=== PATIENT | female | born 1955 | race Hispanic/Latino ===

== ENCOUNTER 2018-05-25 00:41 | Observation (INO) | payer BC ==
--- OUTSIDE RECORDS SUMMARY | 2018-05-25 00:44 | XMS REPORT | Clinical Summary ---
:1955 Author Organization [facility] Address [address] [place] [address] Phone Care Team Providers Name Role Phone Unavailable Primary Care Provider Unavailable Allergies Active Allergy Reactions Severity Noted Date Comments Sulfamethoxazole-Trimethopr Nausea And Vomiting, High 09/19/2017 im Swelling Infliximab Hives, Itching High 09/19/2017 Liraglutide Other (See Comments) High 09/19/2017 Leg cramping Codeine Nausea And Vomiting 09/19/2017 Current Medications Prescription Sig. Disp. Refills Start End Status Date Date aspirin 81 MG EC Take 81 mg by Active tablet mouth daily. amLODIPine (NORVASC) Take 10 mg by Active 10 MG tablet mouth daily. calcitriol (ROCALTROL) Take 0.25 mcg by Active 0.25 MCG capsule mouth daily. loratadine (CLARITIN) Take 10 mg by Active 10 mg tablet mouth daily. DULoxetine (CYMBALTA) Take 60 mg by Active 60 MG capsule mouth daily. mometasone-formoterol Inhale 2 puffs by Active (DULERA) 200-5 mouth via inhaler mcg/actuation inhaler 2 (two) times daily. omega 1-fcw-pkq-fish Take 1,600 mg by Active oil (FISH OIL) mouth daily. 1,600-500-800 mg/5 mL Liqd multivitamins (FOLBEE) Take 1 tablet by Active 2.5-25-1 mg Tab tablet mouth daily. hydroxychloroquine Take 200 mg by Active (PLAQUENIL) 200 mg mouth 2 (two) tablet times daily. ipratropium (ATROVENT) 2 sprays by Nasal Active 0.06 % 0.06% nasal route 2 (two) spray times daily. leflunomide (ARAVA) 20 Take 20 mg by Active MG tablet mouth daily. ABATACEPT (ORENCIA Inject 1,000 mg Active SUBQ) subcutaneously every 30 (thirty) days. pravastatin Take 10 mg by Active (PRAVACHOL) 10 MG mouth daily. tablet cycloSPORINE Place 1 drop into Active (RESTASIS) 0.05 % both eyes every 12 ophthalmic emulsion (twelve) hours. ascorbic acid, vitamin Take 1,000 mg by Active C, (VITAMIN C) 1000 MG mouth daily. tablet cholecalciferol Take 1,000 Units Active (VITAMIN D3) 400 unit by mouth 2 (two) Tab tablet times daily. insulin lispro Inject 5 Units 10 mL 0 09/28/19 Active (HUMALOG) 100 unit/mL subcutaneously 3 18 injection (three) times daily before meals. insulin glargine Inject 20 Units 10 mL 0 09/28/19 Active (LANTUS) 100 unit/mL subcutaneously 18 injection nightly Use as directed . famotidine (PEPCID) 20 Take 1 tablet (20 90 tablet 3 09/28/19 Active MG tablet mg total) by mouth 18 019 daily. carvedilol (COREG) Take 3 tablets 540 3 09/28/19 Active 12.5 MG tablet (37.5 mg total) by tablet 18 019 mouth 2 (two) times daily. sodium bicarbonate 650 Take 2 tablets 540 3 09/28/192 Active MG tablet (1,300 mg total) tablet 18 019 by mouth 3 (three) times daily. pravastatin Take 1 tablet (40 90 tablet 3 09/28/19 Active (PRAVACHOL) 40 MG mg total) by mouth 18 019 tablet nightly. hydrALAZINE Take 1 tablet (100 270 3 09/28/19 Active (APRESOLINE) 100 MG mg total) by mouth tablet 18 019 tablet every 8 (eight) hours. furosemide (LASIX) 40 Take 1 tablet (40 180 3 09/28/19 Active MG tablet mg total) by mouth tablet 18 019 2 (two) times daily. carvedilol (COREG) 25 Take 25 mg by Discontinued MG tablet mouth 2 (two) 018 times daily with breakfast and dinner. cloNIDine HCl Take 0.1 mg by Discontinued (CATAPRES) 0.1 MG mouth 3 (three) 018 tablet times daily. insulin glargine Inject 48 Units Discontinued (LANTUS) 100 unit/mL subcutaneously 018 injection nightly Use as directed . losartan (COZAAR) 50 Take 50 mg by Discontinued MG tablet mouth 3 (three) 018 times daily. insulin lispro Inject 14 Units Discontinued (HUMALOG) 100 unit/mL subcutaneously 3 018 injection (three) times daily before meals. spironolactone Take 25 mg by Discontinued (ALDACTONE) 25 MG mouth daily. 018 tablet ezetimibe (ZETIA) 10 Take 10 mg by Discontinued mg tablet mouth daily. 018 pravastatin Take 1 tablet (40 90 tablet 3 09/28/19 Discontinued (PRAVACHOL) 40 MG mg total) by mouth 18 018 tablet nightly. sodium bicarbonate 650 Take 2 tablets 540 3 09/28/19 Discontinued MG tablet (1,300 mg total) tablet 18 018 by mouth 3 (three) times daily. hydrALAZINE Take 1 tablet (100 270 3 09/28/19 Discontinued (APRESOLINE) 100 MG mg total) by mouth tablet 18 018 tablet every 8 (eight) hours. furosemide (LASIX) 40 Take 1 tablet (40 180 3 09/28/19 Discontinued MG tablet mg total) by mouth tablet 18 018 2 (two) times daily. colchicine (COLCRYS) Take 0.5 tablets 2.5 0 09/29/19 Discontinued 0.6 mg tablet (0.3 mg total) by tablet 18 018 mouth daily for 5 days. carvedilol (COREG) Take 3 tablets 540 3 09/28/19 Discontinued 12.5 MG tablet (37.5 mg total) by tablet 18 018 mouth 2 (two) times daily. colchicine (COLCRYS) Take 0.5 tablets 2.5 0 09/29/19 0.6 mg tablet (0.3 mg total) by tablet 18 018 mouth daily for 5 days. Active Problems Problem Noted Date Acute pericarditis 09/21/2017 LBBB (left bundle branch block) 09/20/2017 Pericardial effusion 09/20/2017 Recurrent right pleural effusion 09/20/2017 Uncontrolled type 2 diabetes mellitus with complication, with long-term 2016 current use of insulin ([facility]) CKD (chronic kidney disease) stage 4, GFR 15-29 ml/min ([facility]) 09/20/2017 Hypoxemia 09/20/2017 Pneumonia of both lungs due to infectious organism 09/19/2017 Encounters Date Type Specialty Care Team Description 09/20/2017 Orders Only General Internal Medicine 09/19/2017 - [facility] General Internal Frankie Raman Pneumonia of right 09/28/2017 Encounter Medicine MD Zbigniew lower lobe due to Eduardo Enrique infectious organism MD Taty ([facility]);Hypoxemia;LBBB Jan Harris MD (left bundle branch block);Chest pain, unspecified type;Pericardial effusion;Acute diastolic heart failure ([facility]);Acute renal failure superimposed on stage 3 chronic kidney disease, unspecified acute renal failure type ([facility]);Uncontrolled type 2 diabetes mellitus with complication, with long-term current use of insulin ([facility]);Pleural effusion after 05/24/2017 Family History Medical History Relation Name Comments Diabetes Brother Drug abuse Brother Asthma Daughter Cancer Father Diabetes Father Diabetes Maternal Aunt Diabetes Maternal Grandmother Diabetes Mother Hearing loss Mother Heart disease Mother Relation Name Status Comments Brother Daughter Father Maternal Aunt Maternal Grandmother Mother Social History Tobacco Use Types Packs/Day Years Used Date Never Smoker Smokeless Tobacco: Never Used Alcohol Use Drinks/Week oz/Week Comments Yes 1 Glasses of wine 0.6 sip of wine once a week Sex Assigned at Date Recorded Not on file Last Filed Vital Signs Vital Sign Reading Time Taken Blood Pressure 118/58 09/28/2017 3:44 PM MAIL READER Pulse 88 09/28/2017 3:44 PM MAIL READER Temperature 36.2 C (97.2 F) 09/28/2017 3:44 PM MAIL READER Respiratory Rate 18 09/28/2017 3:44 PM MAIL READER Oxygen Saturation 94% 09/28/2017 3:44 PM MAIL READER Inhaled Oxygen Concentration - - Weight 123 kg (271 lb 4 oz) 09/27/2017 6:00 AM MAIL READER Height 168 cm (5' 6.14") 09/19/2017 8:44 PM MAIL READER Body Mass Index 43.59 09/27/2017 6:00 AM MAIL READER Plan of Treatment Not on file Results EKG-SCANNED (09/29/2017 1:53 PM)RHYTHM STRIP - SCAN (09/29/2017 1:53 PM) ECHOCARDIOGRAM REPORT - SCAN (09/28/2017 1:50 PM)Only the most recent of3 resultswithin the time period is included.POC-Glucose meter (09/28/2017 11:52 AM )Only the most recent of37 resultswithin the time period is included. Component Value Ref Range POC-Glucose Meter 181 (H)Comment: TESTED AT [address] 70 - 110 mg/[place] [address] Specimen Performing Laboratory Blood [address] [address] Karius (Attention: Tameka Luna, [facility]) (09/28/2017 6:09 AM) Component Value Ref Range Scan Result Specimen Performing Laboratory Blood - Vein [facility] [address] [place] [address] Magnesium (09/28/2017 6:09 AM)Only the most recent of9 resultswithin the time period is included. Component Value Ref Range Magnesium 1.7 1.6 - 2.6 mg/dL Specimen Performing Laboratory Blood [address] [address] Basic Metabolic Panel (09/28/2017 6:09 AM)Only the most recent of9 resultswithin the time period is included. Component Value Ref Range Sodium 135 (L) 136 - 145 meq/L Potassium 4.3 3.5 - 5.1 meq/L Chloride 106 98 - 107 meq/L CO2 19 (L) 22 - 29 meq/L BUN 49 (H) 7 - 21 mg/dL Creatinine 3.42 (H) 0.57 - 1.25 mg/dL Glucose 109 (H) 70 - 105 mg/dL Calcium 9.4 8.4 - 10.2 mg/dL EGFR 14Comment: ESTIMATED GFR IS NOT ACCURATE mL/min/1.73 sq m CREATININE CLEARANCE IN PREDICTING GLOMERULAR FILTRATION RATE. ESTIMATED GFR IS NOT APPLICABLE FOR DIALYSIS PATIENTS. Specimen Performing Laboratory Blood [address] [address] Body fluid culture + gram stain (09/27/2017 7:36 PM) Component Value Ref Range Result No growth Gram Stain Result No White blood cells seen Gram Stain Result No organisms seen Specimen Performing Laboratory Body Fluid - Pleural, Right [address] [address] Body fluid cell count with differential (09/27/2017 7:36 PM) Component Value Ref Range Appearance Bloody (A) Clear Color Pita (A) Colorless, Straw RBCs [address] (H) <=1 /cu mm Adjusted WBC Count 3032 (H) <=5 /cu mm Lining Cells 121 (H) <=1 /cu mm % Segs 32 % % Lymphs 6 % % Monos 60 % % Eos 2 % % Baso 0 % Container Body Fluid EDTA Tube Specimen Performing Laboratory Body Fluid - Pleural, [address] [address] Protein, body fluid (09/27/2017 7:36 PM) Component Value Ref Range Protein, Fluid 3.6 Light's criteria identifies effusions if one or more are present: Pleural to serum protein ratio of more than 0.5; Pleural to Serum LDH of more than 0.6; Pleural LDH of more than two third of upper serum reference limit g/dL Specimen Performing Laboratory Body Fluid - Pleural, [address] [address] Narrative Absence of reference range indicates that normals have not been defined. Assay performance has not been validated for this type of specimen. Lactate dehydrogenase (LDH), body fluid (09/27/2017 7:36 PM) Component Value Ref Range LDH, Fluid 234 Light's criteria identifies effusions if one or more are present: Pleural to serum protein ratio of more than 0.5; Pleural to serum LDH ratio of more than 0.6; Pleural LDH more than two third of upper serum reference limit U/L Specimen Performing Laboratory Body Fluid - Pleural, [address] [address] Narrative Absence of reference range indicates that normals have not been defined. Assay performance has not been validated for this type of specimen. Limited 2D Echocardiogram (09/27/2017 6:59 PM) Component Value Ref Range Ejection Fraction Specimen Performing Laboratory [facility] Narrative Transthoracic Echocardiography Report (TTE) Demographics Patient Name Ann ZIEGLER of Study 09/27/2017 [id number] GenderFemale Visit Number [id number] Race Unknown [id number] Number [id number] Number Date of Birth1955 Referring Physician Anastacio Rutledge MD Age62 year(s) Manager Of Pharmacy David Deal [facility] AnalystLjen Tarango,Interpreting Zbigniew Fortune MD [facility] Physician Procedure Type of Study TTE procedure:LIMITED 2D ECHOCARDIOGRAM (ELADIO) Indications:Evaluate for thrombus . Clinical History COPD Hyperlipidemia Hypertension LBBB Height: 66 inches Weight: 122.92 kg (271 lbs) BSA: 2.28 m^2 BMI: 43.74 kg/m^2 HR: 96 bpm BP: 155/72 mmHg Previous Study Compared to the previous study 09/26/2016 the left ventricular size appears decreased. Signature Findings Technical Quality: Technically adequate exam. Left Ventricle Limited 2D exam and Doppler exam to address study indication. The left ventricle is chamber size (by vol index) is normal (female - LVED vol - 29-61ml/m2). Global LV systolic function normal . LVEF by Feldman's method of disk assessment is normal (55-60%) . Left AtriumLA size is normal (16-34 ml/m2) . Right VentricleRV chamber size is normal . Right Atrium RA cavity size is mildly enlarged . Aortic Valve Mild AoV cusp thickening. Mitral Valve Mild MV leaflet thickening. Mild mitral annular calcification. Tricuspid ValveTV structure is normal. Pulmonic Valve Normal PV structure appears normal by available views. AortaAortic root size (SInus of Valsalva diameter) is normal . PericardiumA small to moderate pericardial effusion is present . The pericardial effusion is circumferential . The pericardial effusion measures 0.89 posterior to the left ventricle in the parasternal short axis view at the mid level and 1.6cm around RA. Pericardial tamponade physiology is not evident . IVC/SVC/PA/PV/PleuralThe inferior vena cava is adequately visualized. The inferior vena cava size is normal . No echodensity is seen in the inferior vena cava. Chambers/Structures Left Ventricle LVIDd: 5.57 cm LVIDs: 3.35 cm LV Septum Diastolic: 1.23 cm LV PW Diastolic: 1.41 cmLV FS: 39.9 % LV PW Systolic: 1.33 cm LVEDV Feldman's:123.23 ml LVEDVI: 54 ml/m^ 2 LVESV Feldman's:51.51 mlLVESVI: 23 ml/ m^2 LVEF Feldman's: 58.2 % LVOT Diameter: 2.28 cm Aorta Ao Root S of Page.: 1.88 cm Doppler/Quantitative Measurements LVOT LVOT Diameter: 2.28 cm LVOT Area: 4.08 cm^2 Procedure Note Interface, External Ris In - 09/28/2017 1:03 PM MAIL READER Transthoracic Echocardiography Report (TTE) Demographics Patient Name MIKE ZIEGLER Date of Study 09/27/2017 Gender Female Visit Number [id number] Race Unknown Room Number 926 Number Date of 1955 Referring Physician Anastacio Rutledge MD Age 62 year(s) Manager Of Pharmacy David Deal [facility] Fertilizer Supervisor Auer Tarango, Interpreting Zbigniew Fortune MD [facility] Physician Procedure Type of Study TTE procedure:LIMITED 2D ECHOCARDIOGRAM (ELADIO) Indications:Evaluate for thrombus . Clinical History COPD Hyperlipidemia Hypertension LBBB Height: 66 inches Weight: 122.92 kg (271 lbs) BSA: 2.28 m^2 BMI: 43.74 kg/m^2 HR: 96 bpm BP: 155/72 mmHg Previous Study Compared to the previous study 09/26/2016 the left ventricular size appears decreased. Signature Findings Technical Quality: Technically adequate exam. Left Ventricle Limited 2D exam and Doppler exam to address study indication. The left ventricle is chamber size (by vol index) is normal (female - LVED vol - 29-61ml/m2). Global LV systolic function normal . LVEF by Feldman's method of disk assessment is normal (55-60%) . Left Atrium LA size is normal (16-34 ml/m2) . Right Ventricle RV chamber size is normal . Right Atrium RA cavity size is mildly enlarged . Aortic Valve Mild AoV cusp thickening. Mitral Valve Mild MV leaflet thickening. Mild mitral annular calcification. Tricuspid Valve TV structure is normal. Pulmonic Valve Normal PV structure appears normal by available views. Aorta Aortic root size (SInus of Valsalva diameter) is normal . Pericardium A small to moderate pericardial effusion is present . The pericardial effusion is circumferential . The pericardial effusion measures 0.89 posterior to the left ventricle in the parasternal short axis view at the mid level and 1.6cm around RA. Pericardial tamponade physiology is not evident . IVC/SVC/PA/PV/Pleural The inferior vena cava is adequately visualized. The inferior vena cava size is normal . No echodensity is seen in the inferior vena cava. Chambers/Structures Left Ventricle LVIDd: 5.57 cm LVIDs: 3.35 cm LV Septum Diastolic: 1.23 cm LV PW Diastolic: 1.41 cm LV FS: 39.9 % LV PW Systolic: 1.33 cm LVEDV Feldman's:123.23 ml LVEDVI: 54 ml/m^2 LVESV Feldman's:51.51 ml LVESVI: 23 ml/m^2 LVEF Feldman's: 58.2 % LVOT Diameter: 2.28 cm Aorta Ao Root S of Page.: 1.88 cm Doppler/Quantitative Measurements LVOT LVOT Diameter: 2.28 cm LVOT Area: 4.08 cm^2 US thoracentesis (09/27/2017 4:15 PM) Specimen Performing Laboratory [facility] Narrative FINAL REPORT Ultrasound guided right thoracentesis Clinical History:Pleural effusion Modality:Ultrasound Local Anesthesia:10 cc1% lidocaine with bicarbonate Technique:Informed consent is obtained.The risks of pain, bleeding, infection, lung collapse/pneumothorax, injury to adjacent structures, and adverse medication reactions are discussed with the patient.After informed consent is obtained, the patient's right hemithorax is scanned from the back, with the patient sitting upright.After the largest fluid pocket area is marked, the skin is prepped and draped in the usual sterile manner.After the area is anesthetized, a 4 Uzbek catheter is advanced into the pleural space. Approximately 1100 cc of serosanguineous fluid is drained, without immediate complications.Fluid is sent for analysis.A purple top tube and a red top tube, each filled with the sampled fluid, are saved in the laboratory department in case future fluid analysis is desired.Post procedure chest x-ray is pending. Patient disposition:Patient is discharged from the ultrasound department after the thoracentesis in good condition. Impression: Successful and uncomplicated ultrasound guided right thoracentesis is performed. Signed: Moises Peters MD Report Verified Date/Time:09/27/2017 17:19:37 Reading Location: [address] Ultrasound Reading Room Procedure Note Interface, External Ris In - 09/27/2017 5:21 PM MAIL READER FINAL REPORT Ultrasound guided right thoracentesis Clinical History: Pleural effusion Modality: Ultrasound Local Anesthesia: 10 cc1% lidocaine with bicarbonate Technique: Informed consent is obtained. The risks of pain, bleeding, infection, lung collapse/pneumothorax, injury to adjacent structures, and adverse medication reactions are discussed with the patient. After informed consent is obtained, the patient's right hemithorax is scanned from the back, with the patient sitting upright. After the largest fluid pocket area is marked, the skin is prepped and draped in the usual sterile manner. After the area is anesthetized, a 4 Uzbek catheter is advanced into the pleural space. Approximately 1100 cc of serosanguineous fluid is drained, without immediate complications. Fluid is sent for analysis. A purple top tube and a red top tube, each filled with the sampled fluid, are saved in the laboratory department in case future fluid analysis is desired. Post procedure chest x-ray is pending. Patient disposition: Patient is discharged from the ultrasound department after the thoracentesis in good condition. Impression: Successful and uncomplicated ultrasound guided right thoracentesis is performed. Signed: Moises Peters MD Report Verified Date/Time: 09/27/2017 17:19:37 Reading Location: [facility] B1 [id number] Ultrasound Reading Room chest 1 view portable / bedside (09/27/2017 4:10 PM)Only the most recent of5 resultswithin the time period is included. Specimen Performing Laboratory [facility] Narrative FINAL REPORT AP chest HISTORY: Thoracentesis COMPARISON: 09/27/2017 IMPRESSION: Intact skeleton. Cardiac silhouette mildly enlarged. Mild interstitial prominence, similar to previous. Right effusion appears decreased. No pneumothorax. Signed: Tari Lea MD Report Verified Date/Time:09/27/2017 16:21:56 Reading Location: [facility] Mammo Reading Room Procedure Note Interface, External Ris In - 09/27/2017 4:24 PM MAIL READER FINAL REPORT AP chest HISTORY: Thoracentesis COMPARISON: 09/27/2017 IMPRESSION: Intact skeleton. Cardiac silhouette mildly enlarged. Mild interstitial prominence, similar to previous. Right effusion appears decreased. No pneumothorax. Signed: Tari Lea MD Report Verified Date/Time: 09/27/2017 16:21:56 Reading Location: [facility] Mammo Reading Room Vitamin B12 and Folate (09/27/2017 4:54 AM) Component Value Ref Range Vitamin B12 >2000 (H) 213 - 816 pg/mL Folate 13.3 >=7.0 ng/mL Specimen Performing Laboratory Blood [facility] [address] [address] 2D Echo W/Doppler(CW/PW/Color) (09/26/2017 11:38 AM) Component Value Ref Range Ejection Fraction Specimen Performing Laboratory [facility] Narrative Transthoracic Echocardiography Report (TTE) Demographics Patient NameACOSTA, MIKE Date of Study2017 Female Visit [id number] Unknown Room Number 926 Number Date of 1955Referring Physicianfrankie Rutledge MD Age 62 year(s)SonographerOscar Bridget [facility] Fertilizer Supervisor Aure Tarango, Interpreting Trevor Tristan MD RDCSPhysician Procedure Type of Study TTE procedure:2DECHO W DOPPLER(CW/PW/COLOR) (ELADIO) Indications:Suspected Pericardial conditions. Clinical History ASTHMA, COPD, OBESITY, LBBB, CAD, A.FIB. HTN, CHF, STROKE Contrast Medium: Definity. Amount - 2 ml Height: 66 inches Weight: 120.66 kg (266.01 lbs) BSA: 2.26 m^2 BMI: 42.93 kg/m^2 HR: 96 bpm BP: 146/65 mmHg Summary A bcpwx-vk-dcrylyxl pericardial effusion is present . The pericardial effusion is circumferential . The pericardial effusion measures 2.8 cm by the right atrium in the subcostal view. NO signs of tamponacde LV endocardium is adequately visualized with IV ultrasound enhancing agent. The left ventricle is chamber size (by vol index) is mildly enlarged (female - LVED 62-70ml/m2). Myey-ya-adfckycx concentric LV hypertrophy. All of the LV segments contract normally . Global LV systolic function normal . LVEF by Feldman's method of disk assessment is normal (55-60%) . The LVEF was measured using Feldman's single plane method (apical 2 chamber) . Grade 1 diastolic dysfunction (impaired relaxation and low-normal LA pressure). LA, RA and RV are normal No significant valvular abnormality Unable to estimate peak systolic PA pressure; inadequate TR velocity signal. The estimated RA pressure by IVC dynamics 0-5mmHg . IVC echo density is noted, consistent with possible thrombus . Previous Study In comparison with the prior exam on 09/20/2017 there are no significant changes. Signature Findings Technical Quality: Technically adequate exam. Rhythm/BPRegular sinus rhythm during the exam. Left Ventricle LV endocardium is adequately visualized with IV ultrasound enhancing agent. The left ventricle is chamber size (by vol index) is mildly enlarged (female - LVED 62-70ml/m2). Utdt-fq-rckqhtiw concentric LV hypertrophy. All of the LV segments contract normally . Global LV systolic function normal . LVEF by Feldman's method of disk assessment is normal (55-60%) . The LVEF was measured using Feldman's single plane method (apical 2 chamber) . Grade 1 diastolic dysfunction (impaired relaxation and low-normal LA pressure). Left AtriumLA is adequately visualized. LA size is normal (16-34 ml/m2 ) . Right VentricleRV chamber size is normal . Global RV systolic function is hyperdynamic . Right Atrium RA size is normal. Aortic Valve Mild AoV cusp thickening. No evidence of aortic regurgitation. Mitral Valve Mild MV leaflet thickening. Trace mitral regurgitation. Tricuspid ValveTV structure is normal. A trace of tricuspid regurgitation. Unable to estimate peak systolic PA pressure; inadequate TR velocity signal. Pulmonic Valve Normal PV structure and function by limited views and Doppler. AortaAortic root size (SInus of Valsalva diameter) is normal . PericardiumA apion-ud-qahixsym pericardial effusion is present . The pericardial effusion is circumferential . The pericardial effusion measures 2.8 cm by the right atrium in the subcostal view. IVC/SVC/PA/PV/PleuralThe inferior vena cava is adequately visualized. The inferior vena cava size is normal . The estimated RA pressure by IVC dynamics 0-5mmHg . IVC echo density is noted, consistent with possible thrombus . Chambers/Structures Left Atrium LA Volume: 50.98 ml LA Area: 18.51 cm^ 2 LA Vol. Index: 23 ml/m^2 Left Ventricle LVIDd: 4.82 cm LVIDs: 3.07 cm LV Septum Diastolic: 1.35 cm LV PW Diastolic: 1.4 cm LV FS: 36.3 % LVEDV Feldman's:143.81 ml LVESV Feldman's:62.75 mlLVEDVI: 64 ml/ m^2 LVEF Feldman's: 56.4 %LVESVI: 28 ml/m^2 LVOT Diameter: 2.01 cm Aorta Ao Root S of Page.: 2.66 cm Doppler/Quantitative Measurements Mitral Valve MV Peak E-Wave: 0.88 m/sMV Peak A-Wave: 1.27 m/s E/ A Ratio: 0.69 Peak Gradient: 3.1 mmHg MV Farhan. Peak: Tissue Doppler E' Lateral Velocity: 0.08 m/s A' Lateral Velocity: 0.15 m/s E/ E': 11.07 Aortic Valve Peak Velocity: 1.97 m/sMean Velocity: 1.35 m/s Peak Gradient: 15.48 mmHgMean Gradient: 8.31 mmHg AV Area (continuity): 2.02 cm^2 AV VTI: 39.31 cm AV DVI: 0.64 LVOT Peak Velocity: 1.34 m/s Peak Gradient: 7.17 mmHg Mean Velocity: 0.85 m/s Mean Gradient: 3.43 mmHg LVOT Diameter: 2.01 cmLVOT VTI: 25 cm LVOT Area: 3.17 cm^2LVOT SV:79.29 ml LVOT CO: 7.61 l/min LVOT CI: 3.37 l/min/m^2 Procedure Note Interface, External Ris In - 09/26/2017 4:07 PM MAIL READER Transthoracic Echocardiography Report (TTE) Demographics Patient Name MIKE ZIEGLER Date of Study 09/26/2017 Gender Female Visit Number [id number] Race Unknown Room Number 926 Number Date of 1955 Referring Physician frankie Rutledge MD Age 62 year(s) 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 Clinical History ASTHMA, COPD, OBESITY, LBBB, CAD, A.FIB. HTN, CHF, STROKE Contrast Medium: Definity. Amount - 2 ml Height: 66 inches Weight: 120.66 kg (266.01 lbs) BSA: 2.26 m^2 BMI: 42.93 kg/m^2 HR: 96 bpm BP: 146/65 mmHg Summary A eangd-jg-unhiffyj pericardial effusion is present . The pericardial effusion is circumferential . The pericardial effusion measures 2.8 cm by the right atrium in the subcostal view. NO signs of tamponacde LV endocardium is adequately visualized with IV ultrasound enhancing agent. The left ventricle is chamber size (by vol index) is mildly enlarged (female - LVED 62-70ml/m2). Xpxz-eq-xjpkklyx concentric LV hypertrophy. All of the LV segments contract normally . Global LV systolic function normal . LVEF by Feldman's method of disk assessment is normal (55-60%) . The LVEF was measured using Feldman's single plane method (apical 2 chamber) . Grade 1 diastolic dysfunction (impaired relaxation and low-normal LA pressure). LA, RA and RV are normal No significant valvular abnormality Unable to estimate peak systolic PA pressure; inadequate TR velocity signal. The estimated RA pressure by IVC dynamics 0-5mmHg . IVC echo density is noted, consistent with possible thrombus . Previous Study In comparison with the prior exam on 09/20/2017 there are no significant changes. Signature Findings Technical Quality: Technically adequate exam. Rhythm/BP Regular sinus rhythm during the exam. Left Ventricle LV endocardium is adequately visualized with IV ultrasound enhancing agent. The left ventricle is chamber size (by vol index) is mildly enlarged (female - LVED 62-70ml/m2). Xwuk-bb-mjsomtbx concentric LV hypertrophy. All of the LV segments contract normally . Global LV systolic function normal . LVEF by Feldman's method of disk assessment is normal (55-60%) . The LVEF was measured using Feldman's single plane method (apical 2 chamber) . Grade 1 diastolic dysfunction (impaired relaxation and low-normal LA pressure). Left Atrium LA is adequately visualized. LA size is normal (16-34 ml/m2) . Right Ventricle RV chamber size is normal . Global RV systolic function is hyperdynamic . Right Atrium RA size is normal. Aortic Valve Mild AoV cusp thickening. No evidence of aortic regurgitation. Mitral Valve Mild MV leaflet thickening. Trace mitral regurgitation. Tricuspid Valve TV structure is normal. A trace of tricuspid regurgitation. Unable to estimate peak systolic PA pressure; inadequate TR velocity signal. Pulmonic Valve Normal PV structure and function by limited views and Doppler. Aorta Aortic root size (SInus of Valsalva diameter) is normal . Pericardium A swkgb-vy-kwbdintz pericardial effusion is present . The pericardial effusion is circumferential . The pericardial effusion measures 2.8 cm by the right atrium in the subcostal view. IVC/SVC/PA/PV/Pleural The inferior vena cava is adequately visualized. The inferior vena cava size is normal . The estimated RA pressure by IVC dynamics 0-5mmHg . IVC echo density is noted, consistent with possible thrombus . Chambers/Structures Left Atrium LA Volume: 50.98 ml LA Area: 18.51 cm^2 LA Vol. Index: 23 ml/m^2 Left Ventricle LVIDd: 4.82 cm LVIDs: 3.07 cm LV Septum Diastolic: 1.35 cm LV PW Diastolic: 1.4 cm LV FS: 36.3 % LVEDV Feldman's:143.81 ml LVESV Feldman's:62.75 ml LVEDVI: 64 ml/m^2 LVEF Feldman's: 56.4 % LVESVI: 28 ml/m^2 LVOT Diameter: 2.01 cm Aorta Ao Root S of Page.: 2.66 cm Doppler/Quantitative Measurements Mitral Valve MV Peak E-Wave: 0.88 m/s MV Peak A-Wave: 1.27 m/s E/A Ratio: 0.69 Peak Gradient: 3.1 mmHg MV Farhan. Peak: Tissue Doppler E' Lateral Velocity: 0.08 m/s A' Lateral Velocity: 0.15 m/s E/E': 11.07 Aortic Valve Peak Velocity: 1.97 m/s Mean Velocity: 1.35 m/s Peak Gradient: 15.48 mmHg Mean Gradient: 8.31 mmHg AV Area (continuity): 2.02 cm^2 AV VTI: 39.31 cm AV DVI: 0.64 LVOT Peak Velocity: 1.34 m/s Peak Gradient: 7.17 mmHg Mean Velocity: 0.85 m/s Mean Gradient: 3.43 mmHg LVOT Diameter: 2.01 cm LVOT VTI: 25 cm LVOT Area: 3.17 cm^2 LVOT SV:79.29 ml LVOT CO: 7.61 l/min LVOT CI: 3.37 l/min/m^2 PT/aPTT (09/26/2017 11:10 AM) Component Value Ref Range Protime 14.5 11.7 - 14.7 seconds INR 1.1 <=5.9 PTT 39.2 (H) 22.5 - 36.0 seconds Specimen Performing Laboratory Blood - Arm, [address] [address] Narrative RECOMMENDED COUMADIN/WARFARIN INR THERAPY RANGES STANDARD DOSE: 2.0 - 3.0 Includes: PROPHYLAXIS for venous thrombosis, systemic embolization; TREATMENT for venous thrombosis and/or pulmonary embolus. HIGH RISK: Target INR is 2.5-3.5 for patients with mechanical heart valves. Platelet count (09/26/2017 11:10 AM) Component Value Ref Range Platelets 501 (H) 150 - 450 K/CU MM Specimen Performing Laboratory Blood - Arm, [address] [address] Protein, total (09/26/2017 11:10 AM) Component Value Ref Range Protein, Total 6.1 6.0 - 8.3 gm/dL Specimen Performing Laboratory Blood - Arm, [address] [address] Lactate dehydrogenase (LDH) (09/26/2017 11:10 AM) Component Value Ref Range LDH 309 (H) 125 - 220 U/L Specimen Performing Laboratory Blood - Arm, [address] [address] XR chest 2 views (09/25/2017 6:37 PM) Specimen Performing Laboratory [facility] Narrative FINAL REPORT Examination: Two view Chest X-ray. CLINICAL HISTORY: Cough COMPARISON: 09/21/2017 The cardiac silhouette is prominent in size. The patient has been extubated. There is a moderate right pleural effusion. Central pulmonary vascular congestion is present. Vague infrahilar opacity in the right lung may reflect a combination of atelectasis, edema and effusion but pneumonitis should be excluded clinically. There is no pneumothorax or acute bony abnormality. Signed: Gasper Johnson MD Report Verified Date/Time:09/25/2017 19:38:01 Reading Location: [address] Reading Room Procedure Note Interface, External Ris In - 09/25/2017 7:40 PM MAIL READER FINAL REPORT Examination: Two view Chest X-ray. CLINICAL HISTORY: Cough COMPARISON: 09/21/2017 The cardiac silhouette is prominent in size. The patient has been extubated. There is a moderate right pleural effusion. Central pulmonary vascular congestion is present. Vague infrahilar opacity in the right lung may reflect a combination of atelectasis, edema and effusion but pneumonitis should be excluded clinically. There is no pneumothorax or acute bony abnormality. Signed: Gasper Johnson MD Report Verified Date/Time: 09/25/2017 19:38:01 Reading Location: [address] Reading Room Protein, random urine (09/24/2017 4:18 PM) Component Value Ref Range Protein, Urine 154 (H) 0 - 14 mg/dL Specimen Performing Laboratory Urine [address] [address] Creatinine, random urine (09/24/2017 4:18 PM)Only the most recent of2 resultswithin the time period is included. Component Value Ref Range Creatinine, Ur 88.8 mg/dL Specimen Performing Laboratory Urine [address] [address] Narrative Reference Range: No Normals NM myocardial perfusion PET (rest and stress) (09/24/2017 2:57 PM) Specimen Performing Laboratory [facility] Narrative FINAL REPORT PROCEDURE:Rest/Stress MYOCARDIAL PERFUSION PET with regadenoson\\XA9\\ CPT CODE:10635 INDICATION:Chest pain, hypokinesis on echo HISTORY:Cardiac risk factors: Diabetes mellitus, hypertension, obesity, lipid abnormality, COPD, asthma. Other cardiovascular history: No reported CAD.. Recent cardiac symptoms: Chest pain. Current cardiovascular-related medications: Aspirin, Coreg, amlodipine, Lasix, Zetia, plaquinil PROTOCOL:Limited low-dose CT imaging was performed for attenuation correction. 37.7 mCi of Rb-82 chloride was injected iv at rest, and gated PET (positron emission tomography) images were obtained. Subsequently, 37.4 mCi of Rb-82 chloride was injected iv at expected peak pharmacologic effect, and gated PET images were obtained. PRELIMINARY STRESS TEST DATA FROM NONINVASIVE CARDIOLOGY: Pharmacologic stress was by 10-second iv infusion of 0.4 mg of regadenoson.Radiotracer was injected 30 seconds after start of stress. Heart rate was 110 beats/min at rest and 118 beats/min (74% of MPHR) at tracer injection. BP was 150/72 mmHg at rest and 171/74 mmHg at tracer injection. Stress was stopped for predetermined endpoint. The patient experienced dyspnea; treatment was not required . Preliminary ECG evaluation revealed sinus rhythm at rest and no ischemic changes with stress. (Final ECG interpretation and other stress and monitoring data are reported separately by Cardiology.) IMAGING FINDINGS:Study quality is adequate. Images obtained after stress injection show neurologic distribution of radiotracer. Resting images show decreased anteroseptal intensity. LV volume appears normal . RV volume appearsnormal . Gated images obtained immediately after stress show normal LV wall motion. Gated images obtained at rest show normal LV wall motion. LVEF at rest is 59%. LVEF at stress is 61%. The CT scan shows a large right pleural effusion and in attenuation artifact in the right upper abdomen with the right kidney would be expected. IMPRESSION: 1. Suspicious study.2. Appropriate pharmacologic stress.3. Suspicious myocardial perfusion. The stress images are normal while there is decreased anteroseptal intensity in the resting images. 4. Normal resting LV function. Normal stress LV function.5. Extracardiac tracer distribution is normal.6. No previous [facility] study for comparison. NONINVASIVE RISK STRATIFICATION: The above findings are considered low risk based on the following criteria: 1)Normal or small myocardial perfusion defect at rest or with stress (JACC. 2012;59(9):857-80.) Signed: Selvin Braswell MD Report Verified Date/Time:09/24/2017 16:36:36 Procedure Note Interface, External Ris In - 09/24/2017 4:38 PM MAIL READER FINAL REPORT PROCEDURE: Rest/Stress MYOCARDIAL PERFUSION PET with regadenoson\\XA9\\ CPT CODE: 00335 INDICATION: Chest pain, hypokinesis on echo HISTORY: Cardiac risk factors: Diabetes mellitus, hypertension, obesity, lipid abnormality, COPD, asthma. Other cardiovascular history: No reported CAD.. Recent cardiac symptoms: Chest pain. Current cardiovascular-related medications: Aspirin, Coreg, amlodipine, Lasix, Zetia, plaquinil PROTOCOL: Limited low-dose CT imaging was performed for attenuation correction. 37.7 mCi of Rb-82 chloride was injected iv at rest, and gated PET (positron emission tomography) images were obtained. Subsequently, 37.4 mCi of Rb-82 chloride was injected iv at expected peak pharmacologic effect, and gated PET images were obtained. PRELIMINARY STRESS TEST DATA FROM NONINVASIVE CARDIOLOGY: Pharmacologic stress was by 10-second iv infusion of 0.4 mg of regadenoson. Radiotracer was injected 30 seconds after start of stress. Heart rate was 110 beats/min at rest and 118 beats/min (74% of MPHR) at tracer injection. BP was 150/72 mmHg at rest and 171/74 mmHg at tracer injection. Stress was stopped for predetermined endpoint. The patient experienced dyspnea; treatment was not required . Preliminary ECG evaluation revealed sinus rhythm at rest and no ischemic changes with stress. (Final ECG interpretation and other stress and monitoring data are reported separately by Cardiology.) IMAGING FINDINGS: Study quality is adequate. Images obtained after stress injection show neurologic distribution of radiotracer. Resting images show decreased anteroseptal intensity. LV volume appears normal . RV volume appears normal . Gated images obtained immediately after stress show normal LV wall motion. Gated images obtained at rest show normal LV wall motion. LVEF at rest is 59%. LVEF at stress is 61%. The CT scan shows a large right pleural effusion and in attenuation artifact in the right upper abdomen with the right kidney would be expected. IMPRESSION: 1. Suspicious study. 2. Appropriate pharmacologic stress. 3. Suspicious myocardial perfusion. The stress images are normal while there is decreased anteroseptal intensity in the resting images. 4. Normal resting LV function. Normal stress LV function. 5. Extracardiac tracer distribution is normal. 6. No previous [facility] study for comparison. NONINVASIVE RISK STRATIFICATION: The above findings are considered low risk based on the following criteria: 1)Normal or small myocardial perfusion defect at rest or with stress (JAC. 2012;59(9):857-81.) Signed: Selvin Braswell MD Report Verified Date/Time: 09/24/2017 16:36:36 Treadmill tolerance(Non-Nuclear Treadmill) (09/24/2017 2:52 PM) Specimen Performing Laboratory [facility] Narrative Protocol Name Regadenoson Time In Exercise Phase 00:01:00 Max. Systolic BP 171 mmHg Max Diastolic BP 74 mmHg Max Heart Rate 118 BPM Max Predicted Heart Rate 159 BPM Reason For Termination Predetermined end point Reason for Test Chest Pain Hypokenesis by ECHO Target HR Formula (220 - Age)*100% Arrhythmias none Resting ECG Sinus tachycardia Non-Specific IVCD Low QRS voltage ST Changes No Significant Changes Overall Impression Indeterminate due to pharmacological stress Indeterminate due to baseline ECG abnormality Chest Pain none HR Response To Exercise BP Response To Exercise Functional Capacity Average-based on age-adjusted MET level achieved ASA COREG AMLODIPINE LASIX Zetia PLAQUENIL Confirmed by fellow Skye Alvarado ([id number]) on 09/27/2017 11:19:37 AM Confirmed by MD CABRERA JORGE ([id number]) on 09/28/2017 4:43:16 PM Procedure Note Interface, External Ris In - 09/28/2017 4:43 PM MAIL READER Protocol Name Regadenoson Time In Exercise Phase 00:01:00 Max. Systolic BP 171 mmHg Max Diastolic BP 74 mmHg Max Heart Rate 118 BPM Max Predicted Heart Rate 159 BPM Reason For Termination Predetermined end point Reason for Test Chest Pain Hypokenesis by ECHO Target HR Formula (220 - Age)*100% Arrhythmias none Resting ECG Sinus tachycardia Non-Specific IVCD Low QRS voltage ST Changes No Significant Changes Overall Impression Indeterminate due to pharmacological stress Indeterminate due to baseline ECG abnormality Chest Pain none HR Response To Exercise BP Response To Exercise Functional Capacity Average-based on age-adjusted MET level achieved ASA COREG AMLODIPINE LASIX Zetia PLAQUENIL Confirmed by fellow Skye Alvarado [id number]) on 09/27/2017 11:19:37 AM Confirmed by MD CABRERA JORGE ([id number]) on 09/28/2017 4:43:16 PM Vancomycin level, random (09/24/2017 4:21 AM)Only the most recent of3 resultswithin the time period is included. Component Value Ref Range Vancomycin Rm 16.6 ug/mL Specimen Performing Laboratory Blood [facility] [address] [address] Narrative Reference Range: No Normals US renal complete (09/23/2017 10:02 PM) Specimen Performing Laboratory [facility] Narrative FINAL REPORT U/S, RENAL, COMPLETE CLINICAL INDICATION:"Elevated creatinine" COMPARISON: None TECHNIQUE:The kidneys and urinary bladder were evaluated using real time ferreira scale and color Doppler sonography. FINDINGS: Right kidney: Thin cortex. No hydronephrosis or mass. Left kidney: Thin cortex. No hydronephrosis. Scattered simple renal cysts. Renal Vasculature: Doppler interrogation reveals preserved vascular flow in the main renal arteries and veins bilaterally. The visualized portions of the abdominal aorta and IVC are unremarkable. Urinary bladder: Unremarkable. IMPRESSION: No hydronephrosis. Thinned renal cortices. Signed: Yahir Benson MD Report Verified Date/Time:09/23/2017 22:13:52 Reading Location: [address] Ortho Consult Reading Room Procedure Note Interface, External Ris In - 09/23/2017 10:16 PM MAIL READER FINAL REPORT U/S, RENAL, COMPLETE CLINICAL INDICATION: "Elevated creatinine" COMPARISON: None TECHNIQUE: The kidneys and urinary bladder were evaluated using real time ferreira scale and color Doppler sonography. FINDINGS: Right kidney: Thin cortex. No hydronephrosis or mass. Left kidney: Thin cortex. No hydronephrosis. Scattered simple renal cysts. Renal Vasculature: Doppler interrogation reveals preserved vascular flow in the main renal arteries and veins bilaterally. The visualized portions of the abdominal aorta and IVC are unremarkable. Urinary bladder: Unremarkable. IMPRESSION: No hydronephrosis. Thinned renal cortices. Signed: Yahir Benson MD Report Verified Date/Time: 09/23/2017 22:13:52 Reading Location: [facility] B1 [id number] Ortho Consult Reading Room Urinalysis w/Microscopic + Reflex to Culture (09/23/2017 12:14 PM) Component Value Ref Range Color, UA Yellow Clarity, UA Hazy Specific [place], UA 1.010 1.001 - 1.035 pH, UA 5.5 5.0 - 8.0 Protein, UA 100 mg/dL (A) Negative Glucose, UA 30 mg/dL (A) Negative Ketones, UA Negative Negative Bilirubin, UA Negative Negative Blood, UA Negative Negative Nitrite, UA Negative Negative Leukocytes, UA Negative Negative Urobilinogen, UA 0.2 0.2 - 1.0 mg/dL RBC, UA 0 /HPF WBC, UA 1 /HPF Bacteria, UA Occasional Mucus Rare Squam Epithel, UA 11 /HPF Yeast Rare Specimen Source Specimen Performing Laboratory Urine - Urine, Clean Catch [address] [address] Sodium, random urine (09/23/2017 12:14 PM) Component Value Ref Range Sodium Urine 31 meq/L Specimen Performing Laboratory Urine - Urine, Clean Catch [address] [address] Narrative Reference Range: No Normals CBC with platelet count + automated diff (09/23/2017 5:37 AM)Only the most recent of4 resultswithin the time period is included. Component Value Ref Range WBC 12.7 (H) 3.5 - 10.5 K/L RBC 2.61 (L) 3.93 - 5.22 M/L Hemoglobin 7.9 (L) 11.2 - 15.7 GM/DL Hematocrit 24.7 (L) 34.1 - 44.9 % MCV 94.6 79.4 - 94.8 fL MCH 30.3 25.6 - 32.2 pg MCHC 32.0 (L) 32.2 - 35.5 GM/DL RDW 14.2 11.7 - 14.4 % Platelets 466 (H) 150 - 450 K/CU MM MPV 10.6 9.4 - 12.3 fL nRBC 0 0 - 0 /100 WBC % Neutros 64 % % Lymphs 17 % % Monos 11 % % Eos 7 % % Baso 0 % # Neutros 8.16 (H) 1.56 - 6.13 K/L # Lymphs 2.14 1.18 - 3.74 K/L # Monos 1.35 (H) 0.24 - 0.36 K/L # Eos 0.83 (H) 0.04 - 0.36 K/L # Baso 0.04 0.01 - 0.08 K/L Immature Granulocytes-Relative 2 (H) 0 - 1 % Specimen [place] [address] CBC with platelet count + automated diff (09/23/2017 5:37 AM)Only the most recent of4 resultswithin the time period is included. Specimen Performing Laboratory Blood Narrative The following orders were created for panel order CBC with platelet count + automated diff. Procedure Abnormality Status --------- ------ CBC with platelet count ...[[id number]]AbnormalFinal result Please view results for these tests on the individual orders. CMV PCR, quantitative (09/22/2017 4:44 AM) Component Value Ref Range CMV DNA Viral Load Negative or below the linear range of the assay (<375 copies/mL) Specimen Performing Laboratory Blood - Arm, [place] [address] Narrative Cytomegalovirus (CMV) infection can cause significant disease in immunosuppressed patients. However, it is common for CMV to manifest as a limited infection which is of no clinical significance in immunosuppressed patients or in healthy individuals. Viral load measurements are helpful to identify clinical CMV infection and to guide the pre-emptive management of antiviral therapy.For treatment of CMV infection due to reactivation in transplant recipients, a threshold between 4,000 and 5, 000 copies/mL is suggested.For treatment of primary CMV infection, a lower threshold can be used. CMV infection may also be monitored using weekly serial measurements. Serial measurements of CMV DNA viral load can be evaluated by identifying a 10-fold change, as well as assessing the CMV DNA viral load and the clinical context for each patient. The plasma CMV DNA viral load was detected using quantitative polymerase chain reaction and fluorescent monitoring of a specific hybridized probe. Genetic variation and other factors can affect the accuracy of nucleic acid testing. Therefore, the results should be interpreted in light of clinical data. A negative result may not exclude the presence of CMV disease. This test was developed and its performance characteristics determined by the [facility] Pathology Department, Section of Molecular Pathology. It has not been cleared or approved by the U.S. Food and Drug Administration (FDA), since FDA approval is not required for clinical use of the test. Validation was done as required by The Clinical Laboratory Improvement Amendments of 1988. Mycoplasma pneumoniae antibody, IgM (09/22/2017 4:44 AM) Component Value Ref Range M. pneumoniae Ab IgM, EIA 139 U/mL Comment: REFERENCE RANGE: <770 U/mL Interpretive criteria: <770 U/mL Negative 770-950 U/mL Low positive >950 U/mL Positive A positive IgM antibody result is consistent with recent infection. However, a negative result does not necessarily rule out recent infection as some individuals may not mount another IgM response, if previously infected. Specimen Performing Laboratory Blood - Arm, Right [employer] [facility] [address] [address] Narrative Performing Lab *[facility] [address] [place] [phone] Matthew Wolff MD Mycoplasma pneumoniae antibody, IgG (09/22/2017 4:44 AM) Component Value Ref Range Mycoplasma Igg < or=0.90 Comment: REFERENCE RANGE: <=0.90 Interpretive criteria: <=0.90 Negative 0.91-1.09 Equivocal >=1.10 Positive A positive IgG antibody result indicates that the patient has antibody to Mycoplasma. It does not differentiate between an active or past infection. The clinical diagnosis must be interpreted in conjunction with the clinical signs and symptoms of the patient. Specimen Performing Laboratory Blood - Arm, Right [facility] [address] [address] Narrative Performing Lab *[facility] [address] [place] [phone] Matthew Wolff MD Bronchial culture + gram stain (09/21/2017 12:52 PM) Component Value Ref Range Result No growth Gram Stain Result <1+ WBCs Gram Stain Result No organisms seen Specimen Performing Laboratory BAL - Lung, Right Middle Lobe [facility] [address] [place] [address] SPIN/CONCENTRATION CHARGE (09/21/2017 12:49 PM) Component Value Ref Range Concentration charged Done Specimen Performing Laboratory Body Fluid - BAL [address] [address] AFB culture + smear (09/21/2017 12:49 PM) Component Value Ref Range Result No acid-fast bacilli isolated in 42 days AFB Smear No acid fast bacilli seen Specimen Performing Laboratory Body Fluid - BAL [address] [address] Fungus culture + smear (09/21/2017 12:49 PM) Component Value Ref Range Result No fungus isolated in 28 days Fungus Smear No fungi seen Specimen Performing Laboratory BAL - Lung, Right Middle Lobe [address] [address] Blood gas, arterial (09/21/2017 11:02 AM) Component Value Ref Range pH, Arterial 7.43 7.35 - 7.45 pCO2, Arterial 32 (L) 35 - 45 mmHg pO2, Arterial 226 (H) 80 - 90 mmHg O2 Sat, Arterial 99.5 (H) 96.0 - 97.0 % HCO3, Arterial 21 21 - 29 mmol/L Base Excess, Arterial -3.3 (L) -2.0 - 3.0 mmol/L Patient Temperature 36.9 C FIO2 60.0 % Specimen Performing Laboratory Blood, Arterial - Arm, Right [address] [address] Legionella antigen, urine (09/20/2017 3:30 PM) Component Value Ref Range Legionella Urine Antigen Negative - see commentComment: Negative for L. pneumophila serogroup 1 antigen, suggesting no recent or current infection with this serogroup. Legionellosis cannot be ruled out since other serogroups and species may cause disease. Specimen Performing Laboratory Urine - Urine, Sterile Collection [address] [address] 2D Echo W/O Doppler(No Doppler) (09/20/2017 1:08 PM) Component Value Ref Range Ejection Fraction Specimen Performing Laboratory [facility] ECHO [facility]ART[facility] MKCKESSON CPACS Narrative Transthoracic Echocardiography Report (TTE) Demographics Patient NameACOSTA, MIKE Date of Study2015 Female Visit [id number] Unknown Room Number 7215 Number Date of 1955Referring Physicianfrankie raman Age 62 year(s)SonographerRahel Marrero Fertilizer Supervisor Aure Tarango, Interpreting Aleisha De Paz MD RDCSPhysician Procedure Type of Study TTE procedure:ECHO2D MODE W/O DOPPLER, DEFINITY CONTRAST (ELADIO) Indications:Shortness of breath and Pericardial effusion. Clinical History HGB 8.2 HCT 25.3 % LBBB, Pericardial Effusion, DM Contrast Medium: Definity. Amount - 2 ml Height: 66 inches Weight: 120.66 kg (266 lbs) BSA: 2.26 m^2 BMI: 42.93 kg/m^2 HR: 90 bpm BP: 128/72 mmHg Summary LV endocardium is adequately visualized with IV ultrasound enhancing agent. The left ventricle is chamber size (by vol index) is mildly enlarged (female - LVED 62-70ml/m2). Septal motion is consistent with LBBB, otherwise all of the LV segments contract normally . Global LV systolic function normal . A [id number] pericardial effusion is present . The pericardial effusion is circumferential. Pericardial tamponade physiology is not evident . The estimated RA pressure by IVC dynamics 0-5mmHg . Previous Study No prior studies available for comparison. Signature Findings Technical Quality: Technically adequate exam. Left Ventricle LV endocardium is adequately visualized with IV ultrasound enhancing agent. The left ventricle is chamber size (by vol index) is mildly enlarged (female - LVED 62-70ml/m2). Septal motion is consistent with LBBB, otherwise all of the LV segments contract normally . Global LV systolic function normal . Left AtriumLA is adequately visualized. LA size is normal (16-34 ml/m2 ) . Right VentricleThe right ventricular chamber size and systolic function are within normal limits. Right Atrium The RA is well visualized. RA cavity size is normal . Aortic Valve Mild AoV cusp thickening. AoV cusp mobility is normal . Mitral Valve Mild MV leaflet thickening. No evidence of mitral regurgitation. Tricuspid ValveNormal TV structure and function by available views and Doppler. Unable to estimate peak systolic PA pressure; inadequate TR velocity signal. Pulmonic Valve Normal PV structure and function by limited views and Doppler. AortaAortic root size (SInus of Valsalva diameter) is normal . PericardiumA utyrz-af-swsltgjk pericardial effusion is present . The pericardial effusion is circumferential. Pericardial tamponade physiology is not evident . IVC/SVC/PA/PV/PleuralThe inferior vena cava is adequately visualized. The inferior vena cava size is normal . The estimated RA pressure by IVC dynamics 0-5mmHg . Chambers/Structures Left Atrium LA Volume: 49.1 ml LA Area: 19.3 cm^2 LA Vol. Index: 22 ml/m^2 Left Ventricle LVIDd: 3.92 cm LV Septum Diastolic: 1.6 cm LV PW Diastolic: 1.54 cm LVEDV Feldman's:162.83 ml LVESV Feldman's:63.71 ml LVEF Feldman's: 60.9 % LVEDVI: 72 ml/m ^2 LVESVI: 28 ml/m^2 LVOT Diameter: 2.18 cm Aorta Ao Root S of Page.: 2.94 cm Doppler/Quantitative Measurements Mitral Valve MV Peak E-Wave: 0.76 m/sMV Peak A-Wave: 1.27 m/s E/ A Ratio: 0.6 Peak Gradient: 2.31 mmHg MV Farhan. 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 Clinical History HGB 8.2 HCT 25.3 % LBBB, Pericardial Effusion, DM Contrast Medium: Definity. Amount - 2 ml Height: 66 inches Weight: 120.66 kg (266 lbs) BSA: 2.26 m^2 BMI: 42.93 kg/m^2 HR: 90 bpm BP: 128/72 mmHg Summary LV endocardium is adequately visualized with IV ultrasound enhancing agent. The left ventricle is chamber size (by vol index) is mildly enlarged (female - LVED 62-70ml/m2). Septal motion is consistent with LBBB, otherwise all of the LV segments contract normally . Global LV systolic function normal . A vllaz-[id number]-[id number] pericardial effusion is present . The pericardial effusion is circumferential. Pericardial tamponade physiology is not evident . The estimated RA pressure by IVC dynamics 0-5mmHg . Previous Study No prior studies available for comparison. Signature Findings Technical Quality: Technically adequate exam. Left Ventricle LV endocardium is adequately visualized with IV ultrasound enhancing agent. The left ventricle is chamber size (by vol index) is mildly enlarged (female - LVED 62-70ml/m2). Septal motion is consistent with LBBB, otherwise all of the LV segments contract normally . Global LV systolic function normal . Left Atrium LA is adequately visualized. LA size is normal (16-34 ml/m2) . Right Ventricle The right ventricular chamber size and systolic function are within normal limits. Right Atrium The RA is well visualized. RA cavity size is normal . Aortic Valve Mild AoV cusp thickening. AoV cusp mobility is normal . Mitral Valve Mild MV leaflet thickening. No evidence of mitral regurgitation. Tricuspid Valve Normal TV structure and function by available views and Doppler. Unable to estimate peak systolic PA pressure; inadequate TR velocity signal. Pulmonic Valve Normal PV structure and function by limited views and Doppler. Aorta Aortic root size (SInus of Valsalva diameter) is normal . Pericardium A nsbwq-[id number]-[id number] pericardial effusion is present . The pericardial effusion is circumferential. Pericardial tamponade physiology is not evident . IVC/SVC/PA/PV/Pleural The inferior vena cava is adequately visualized. The inferior vena cava size is normal . The estimated RA pressure by IVC dynamics 0-5mmHg . Chambers/Structures Left Atrium LA Volume: 49.1 ml LA Area: 19.3 cm^2 LA Vol. Index: 22 ml/m^2 Left Ventricle LVIDd: 3.92 cm LV Septum Diastolic: 1.6 cm LV PW Diastolic: 1.54 cm LVEDV Feldman's:162.83 ml LVESV Feldman's:63.71 ml LVEF Feldman's: 60.9 % LVEDVI: 72 ml/m^2 LVESVI: 28 ml/m^2 LVOT Diameter: 2.18 cm Aorta Ao Root S of Page.: 2.94 cm Doppler/Quantitative Measurements Mitral Valve MV Peak E-Wave: 0.76 m/s MV Peak A-Wave: 1.27 m/s E/A Ratio: 0.6 Peak Gradient: 2.31 mmHg MV Farhan. Peak: Tissue Doppler E' Lateral Velocity: 0.08 m/s A' Lateral Velocity: 0.15 m/s E/E': 9.15 Aortic Valve Peak Velocity: 2.07 m/s Mean Velocity: 1.45 m/s Peak Gradient: 17.22 mmHg Mean Gradient: 9.58 mmHg AV Area (continuity): 2.3 cm^2 AV VTI: 41.46 cm AV DVI: 0.62 LVOT Peak Velocity: 1.35 m/s Peak Gradient: 7.24 mmHg Mean Velocity: 0.87 m/s Mean Gradient: 3.64 mmHg LVOT Diameter: 2.18 cm LVOT VTI: 25.58 cm LVOT Area: 3.73 cm^2 LVOT SV:95.43 ml LVOT CO: 8.59 l/min LVOT CI: 3.8 l/min/m^2 Procalcitonin (09/20/2017 10:04 AM) Component Value Ref Range Procalcitonin 2.35 (H) <0.05 ng/mL Specimen Performing Laboratory Blood [address] [address] Narrative SEPSIS RISK (ng/mL) Low:0.05-0.50 Intermediate: 0.51-2.00 High: >=2.01 Lactic acid, venous, whole blood (09/20/2017 8:04 AM) Component Value Ref Range Lactate, Venous 0.5 0.5 - 2.2 mmol/L Specimen Performing Laboratory Blood [address] [address] Narrative Effective 01/27/2016: Units/Reference Range Change New: 0.5-2.2 mmol/LPrevious: 5-20 mg/dL B-type Natriuretic Factor (BNP) (09/20/2017 8:04 AM) Component Value Ref Range BNP 22 0 - 100 pg/mL Specimen Performing Laboratory Blood [address] [address] Hemoglobin A1c (09/20/2017 8:04 AM) Component Value Ref Range Hemoglobin A1C 6.8 (H) 4.3 - 6.1 % Specimen Performing Laboratory Blood [address] [address] Strep pneumoniae antigen (09/20/2017 6:09 AM) Component Value Ref Range Strep pneumoniae Antigen Presumptive negative for Presumptive negative for pneumococcal pneumonia - see pneumococcal pneumonia - see comment comment, Presumptive negative for pneumococcal meningitis - see comment Specimen Performing Laboratory Urine - Urine, Unspecified Source [address] [address] Narrative Presumptive negative for pneumococcal pneumonia, suggesting no current or recent pneumococcal infection. Infection due to S. pneumoniae cannot be ruled out since the antigen present in the sample may be below the detection limit of the test. Manual Differential (09/20/2017 3:01 AM) Component Value Ref Range % Neutros (manual) 54 % % Lymphs (manual) 13 % % Monos (manual) 11 % % Eos (manual) 6 % % Metamyelo (manual) 3 (H) 0 - 0 % % Myelo (manual) 2 (H) 0 - 0 % % Bands (manual) 11 (H) 0 - 10 % # Neutros (manual) 6.70 1.80 - 8.00 K/L # Lymphs (manual) 1.61 1.48 - 4.50 K/L # Monos (manual) 1.36 (H) 0.00 - 1.30 K/L # Eos (manual) 0.74 (H) 0.00 - 0.50 K/L # Metamyelo (manual) 0.37 (H) 0.00 - 0.00 K/L # Bands (manual) 1.4 (H) 0.0 - 0.8 K/L # Myelo (manual) 0.25 (H) 0.00 - 0.00 K/L Total Counted 100 Bands plus Segmented Neutrophils 8.06 WBC Morphology Normal Platelet Morphology Normal Anisocytosis 2+ moderate Poikilocytes 2+ moderate Specimen Performing Laboratory Blood [address] [address] Respiratory Panel SLHS (09/20/2017 3:01 AM) Component Value Ref Range Human Metapneumovirus Not detected Not detected, Inconclusive Rhinovirus Not detected Not detected, Inconclusive Influenza A Not detected Not detected, Inconclusive Influenza A subtype H1 Not detected Not detected, Inconclusive Influenza A Subtype H3 Not detected Not detected, Inconclusive Influenza A Subtype H1-2009 Not detected Not detected, Inconclusive Influenza B Not detected Not detected, Inconclusive Respiratory Syncytial Virus Not detected Not detected, Inconclusive Parainfluenza Virus 1 Not detected Not detected, Inconclusive Parainfluenza Virus 2 Not detected Not detected, Inconclusive Parainfluenza virus 3 Not detected Not detected, Inconclusive Parainfluenza Virus 4 Not detected Not detected, Inconclusive Adenovirus Not detected Not detected, Inconclusive Coronavirus 229E Not detected Not detected, Inconclusive Coronavirus HKU1 Not detected Not detected, Inconclusive Coronavirus NL63 Not detected Not detected, Inconclusive Coronavirus OC43 Not detected Not detected, Inconclusive Bordetella Pertussis Not detected Not detected, Inconclusive Chlamydophila Pneumoniae Not detected Not detected, Inconclusive Mycoplasma Pneumoniae Not detected Not detected, Inconclusive Specimen Performing Laboratory Nasopharyngeal - Nasopharyngeal Swab [address] [address] Iron, TIBC, % sat. (without ferritin) (09/20/2017 3:01 AM) Component Value Ref Range Iron 27 (L) 40 - 160 ug/dL TIBC 186 (L) 250 - 450 ug/dL Iron % Saturation 15 (L) 20 - 55 % Specimen Performing Laboratory Blood [address] [address] Troponin I (09/20/2017 3:01 AM) Component Value Ref Range Troponin I <0.01 0.00 - 0.03 ng/mL Specimen Performing Laboratory Blood [address] [address] Narrative Troponin I (TnI) levels must be interpreted in the context of the presenting symptoms and the clinical findings. Elevated TnI levels indicate myocardial damage, but are not specific for ischemic heart disease. Elevated TnI levels are seen in patients with other cardiac conditions (including myocarditis and congestive heart failure), and slight TnI elevations occur in patients with other conditions, including sepsis, renal failure, acidosis, acute neurological disease, and persistent tachyarrhythmia. Phosphorus (09/20/2017 3:01 AM) Component Value Ref Range Phosphorus 4.2 2.3 - 4.7 mg/dL Specimen Performing Laboratory Blood [address] [address] Ferritin (09/20/2017 3:01 AM) Component Value Ref Range Ferritin 535 (H) 5 - 275 ng/mL Specimen Performing Laboratory Blood [address] [address] Creatine Kinase (CK), Total and MB (09/20/2017 3:01 AM) Component Value Ref Range Total CK 76 29 - 200 U/L CK-MB 1.9 0.0 - 6.6 ng/mL MB Relative Index 2.5 % Specimen Performing Laboratory Blood [address] [address] Narrative CK-MB Reference Range: <6.7Normal 6.7-10.0Borderline >10.0 Abnormal ECG 12 lead (09/20/2017 2:43 AM) Specimen Performing Laboratory GE MUSE Narrative Ventricular Rate 79 BPM Atrial Rate 79 BPM P-R Interval 192 ms QRS Duration 152 ms Q-T Interval 456 ms QTC Calculation(Bazett) 522 ms P [place] 59 degrees R [place] -15 degrees T [place] 87 degrees Normal sinus rhythm Left bundle branch block Prolonged QT Abnormal ECG No previous ECGs available Confirmed by MD TRISTAN YOCHAI ([id number]) on 09/20/2017 6:40:55 AM Procedure Note Interface, External Ris In - 09/20/2017 6:41 AM 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 Component Value Ref Range Result No growth in 5 days Specimen Performing Laboratory Blood - Arm, Left [address] [address] after 05/24/2017
--- OUTSIDE RECORDS SUMMARY | 2018-05-25 00:45 | XMS REPORT ---
:1955 [facility] Address [address] [place] [address] Dr. Chavira. [address] [place] [address] Care Team Providers Name Role Phone DR LYSSA COTTON Unavailable Unavailable MCKINLEY GODOY Unavailable Unavailable Problems This patient has no known problems. Allergies, Adverse Reactions, Alerts This patient has no known allergies or adverse reactions. Medications This patient has no known medications. Encounters Start End Encounter Admission Attending Care Care Encounter Date/Time Date/Time Type Type Clinicians Facility Department ID 2017-12-20 2017-12-20 Outpatient C LYSSA COTTON [facility] [id number] 05:45:00 10:51:00 Results Test Description Test Time Test Comments Text Results Atomic Results Result Comments GLUCOMETER GLUCOSE- LAB USE ONLY 2017-12-20 09:57:00 Test Item Value Reference Range Comments GLUCOMETER (test code=GMG) 163 mg/dL 70-100 Meter ID: [id number]: [id number] ARIC ROBERSON GLUCOMETER GLUCOSE- LAB USE [id number] 06:56:00 Test Item Value Reference Range Comments GLUCOMETER (test code=GMG) 148 mg/dL 70-100 CLEANED METERMeter ID: [id number]: [id number] [employer] CULTURE + [id number] 18:43:00 Test Item Value Reference Range Comments CULTURE (BEAKER) (test No acid-fast bacilli isolated rfqe=0567) in 42 days AFB SMEAR (BEAKER) (test No acid fast bacilli seen xcpc=453) FUNGUS CULTURE + [id number] 13:42:00 Test Item Value Reference Range Comments CULTURE (BEAKER) (test No fungus isolated in 28 days rglb=6588) FUNGUS SMEAR (BEAKER) (test No fungi seen eptm=1686) BODY FLUID CULTURE + GRAM [id number] 06:03:00 Test Item Value Reference Range Comments CULTURE (BEAKER) (test qyad=5798) No growth GRAM STAIN RESULT (BEAKER) (test No White blood cells seen tfyx=3796) GRAM STAIN RESULT (BEAKER) (test No organisms seen iebc=18697) POCT-GLUCOSE [id number] 12:20:00 Test Item Value Reference Range Comments POC-GLUCOSE METER (BEAKER) 181 mg/dL 70-110 TESTED AT [address] (test tqek=6407) [place] [address] POCT-GLUCOSE [id number] 08:56:00 Test Item Value Reference Range Comments POC-GLUCOSE METER (BEAKER) 119 mg/dL 70-110 TESTED AT [address] (test bpqi=6282) [place] [id number] BASIC METABOLIC [id number] 07:37:00 Test Item Value Reference Range Comments SODIUM (BEAKER) (test 135 meq/L 136-145 qeak=247) POTASSIUM (BEAKER) (test 4.3 meq/L 3.5-5.1 vehz=955) CHLORIDE (BEAKER) (test 106 meq/L 98-107 ucwe=952) CO2 (BEAKER) (test 19 meq/L 22-29 oljp=439) BLOOD UREA NITROGEN 49 mg/dL 7-21 (BEAKER) (test gjfw=299) CREATININE (BEAKER) (test 3.42 mg/dL 0.57-1.25 nxhh=151) GLUCOSE RANDOM (BEAKER) 109 mg/dL 70-105 (test jcly=712) CALCIUM (BEAKER) (test 9.4 mg/dL 8.4-10.2 geun=669) EGFR (BEAKER) (test 14 mL/min/1.73 sq m ESTIMATED GFR IS NOT oiyw=0268) ACCURATE CREATININE CLEARANCE IN PREDICTING GLOMERULAR FILTRATION RATE. ESTIMATED GFR IS NOT APPLICABLE FOR DIALYSIS PATIENTS. [id number] 07:36:00 Test Item Value Reference Range Comments MAGNESIUM (BEAKER) (test cwrn=882) 1.7 mg/dL 1.6-2.6 BODY FLUID CELL COUNT WITH [id number] 22:37:00 Test Item Value Reference Range Comments APPEARANCE FLUID (BEAKER) (test jgoh=740) Bloody Clear COLOR FLUID (BEAKER) (test xinc=279) Pita Colorless, Straw RBC FLUID (BEAKER) (test upra=921) [address]8613 /cu mm <=1 ADJUSTED WBC FLUID (BEAKER) (test kxlt=0894) 3032 /cu mm <=5 LINING CELLS (BEAKER) (test qtek=9137) 121 /cu mm <=1 NEUTROPHILS FLUID (BEAKER) (test frph=4861) 32 % LYMPHS FLUID (BEAKER) (test gzey=674) 6 % MONO/MACROPHAGE FLUID (BEAKER) (test fqme=134) 60 % EOSINOPHILS FLUID (BEAKER) (test jopj=076) 2 % BASO FLUID (BEAKER) (test yboi=367) 0 % CONTAINER BODY FLUID (BEAKER) (test vxou=8179) EDTA Tube POCT-GLUCOSE [id number] 21:26:00 Test Item Value Reference Range Comments POC-GLUCOSE METER (BEAKER) 165 mg/dL 70-110 TESTED AT [address] (test cbjg=9468) [facility] [address] LACTATE DEHYDROGENASE (LDH), BODY [id number] 20:35:00 Test Item Value Reference Range Comments LACTATE DEHYDROGENASE FLUID (BEAKER) 234 U/L Light's criteria identifies (test jldk=480) effusions if one or more are pre Absence of reference range indicates that normals have not been defined.Assay performance has not been validated for this type of specimen.PROTEIN, BODY [id number] 20:35:00 Test Item Value Reference Range Comments PROTEIN FLUID (BEAKER) (test 3.6 g/dL Light's criteria identifies jqyc=415) effusions if one or more are pre Absence of reference range indicates that normals have not been defined.Assay performance has not been validated for this type of specimen.POCT-GLUCOSE [id number] 17:21:00 Test Item Value Reference Range Comments POC-GLUCOSE METER (BEAKER) 134 mg/dL 70-110 TESTED AT [address] (test kgme=9239) [facility] [address] U/S, [id number] 17:19:00Laterality?->RightReason for exam:-> diagnsotic and therapeuticFINAL REPORT Ultrasound guided right thoracentesis Clinical History: Pleural effusion Modality: Ultrasound Local Anesthesia: 10 cc1% lidocaine with bicarbonate Technique: Informed consent is obtained. The risks of pain, bleeding, infection, lung collapse/pneumothorax, injury to adjacent structures, and adverse medication reactions are discussed with the patient. After informed consent is obtained, the patient's right hemithorax is scanned from the back, with the patientsitting upright. After the largest fluid pocket area is marked, the skin is prepped and draped in the usual sterile manner. After the area is anesthetized, a 4 Azeri catheter is advanced into the pleural space. Approximately 1100 cc of serosanguineous fluid is drained, without immediate complications. Fluid is sent for analysis. A purple top tube and a red top tube, each filled with the sampledfluid, are saved in the laboratory department in case future fluid analysis is desired. Post procedure chest x-ray is pending. Patient disposition: Patient is discharged from the ultrasound department after the thoracentesis in good condition. Impression: Successful and uncomplicated ultrasound guided right thoracentesis is performed. Signed: Moises Peters Verified Date/Time: 09/27/2017 17:19:37 Reading Location: [place] [id number] Ultrasound Reading Room RAD, CHEST, 1 VIEW, NON [id number] 16:21: 00Reason for exam:->Post Thoracentesis U/S room 3 U/S Room 3 Should this be performed at the bedside?->YesFINAL REPORT AP chest HISTORY: Thoracentesis COMPARISON: 09/27/2017 IMPRESSION:Intact skeleton. Cardiac silhouette mildly enlarged. Mild interstitial prominence, similar to previous. Right effusion appears decreased. No pneumothorax. Signed: Tari Lea Verified Date/Time: 09/27/2017 16:21:56 Reading Location: [facility] Mammo Reading Room Electronically signed by: TARI LEA M.D. on 2017 04:21 PMRAD, CHEST, 1 VIEW, NON [id number] 13:43:00Reason for exam:-&gt ;overloadShould this be performed at the bedside?->YesFINAL REPORT Chest one view compared to September 25 Discussion: Cardiac prominence , pulmonary congestion, and small right base effusion are unchanged. No pneumothorax. Signed: Austyn Apodacaeport Verified Date/Time: 09/27/2017 13: 43:29 Reading Location: [facility] [id number] Consult Reading Room POCT-GLUCOSE [id number] 12:32:00 Test Item Value Reference Range Comments POC-GLUCOSE METER (BEAKER) 181 mg/dL 70-110 TESTED AT [address] (test uprr=2806) [place] [address] VITAMIN B12 AND [id number] 08:57:00 Test Item Value Reference Range Comments VITAMIN B12 (BEAKER) (test velt=611) > pg/mL 213-816 FOLATE (BEAKER) (test mkdw=011) 13.3 ng/mL >=7.0 SPIN/CONCENTRATION [id number] 08:48:00 Test Item Value Reference Range Comments CONCENTRATION CHARGED (BEAKER) (test wmzo=4261) Done POCT-GLUCOSE [id number] 07:58:00 Test Item Value Reference Range Comments POC-GLUCOSE METER (BEAKER) 155 mg/dL 70-110 TESTED AT [address] (test vtjh=5758) [place] [address] BASIC METABOLIC [id number] 06:35:00 Test Item Value Reference Range Comments SODIUM (BEAKER) (test 134 meq/L 136-145 jprd=523) POTASSIUM (BEAKER) (test 4.5 meq/L 3.5-5.1 umcn=805) CHLORIDE (BEAKER) (test 107 meq/L 98-107 qfpb=346) CO2 (BEAKER) (test 18 meq/L 22-29 egid=090) BLOOD UREA NITROGEN 45 mg/dL 7-21 (BEAKER) (test lhaa=190) CREATININE (BEAKER) (test 3.29 mg/dL 0.57-1.25 xveq=102) GLUCOSE RANDOM (BEAKER) 149 mg/dL 70-105 (test deqv=803) CALCIUM (BEAKER) (test 9.4 mg/dL 8.4-10.2 rzte=054) EGFR (BEAKER) (test 14 mL/min/1.73 sq m ESTIMATED GFR IS NOT ojhn=5168) ACCURATE CREATININE CLEARANCE IN PREDICTING GLOMERULAR FILTRATION RATE. ESTIMATED GFR IS NOT APPLICABLE FOR DIALYSIS PATIENTS. [id number] 06:34:00 Test Item Value Reference Range Comments MAGNESIUM (BEAKER) (test iyuu=930) 1.6 mg/dL 1.6-2.6 POCT-GLUCOSE [id number] 21:34:00 Test Item Value Reference Range Comments POC-GLUCOSE METER (BEAKER) 172 mg/dL 70-110 TESTED AT [address] (test jndh=7384) [facility] [address] POCT-GLUCOSE [id number] 18:44:00 Test Item Value Reference Range Comments POC-GLUCOSE METER (BEAKER) 179 mg/dL 70-110 TESTED AT [address] (test zdqr=9525) [place] [id number] POCT-GLUCOSE [id number] 14:01:00 Test Item Value Reference Range Comments POC-GLUCOSE METER (BEAKER) 176 mg/dL 70-110 TESTED AT [address] (test muvc=2790) [facility] [address] LACTATE DEHYDROGENASE (LDH)2017-09-26 12:06:00 Test Item Value Reference Range Comments LACTATE DEHYDROGENASE (BEAKER) (test ntub=157) 309 U/L 125-220 PROTEIN, [id number] 12:04:00 Test Item Value Reference Range Comments TOTAL PROTEIN (BEAKER) (test ptge=396) 6.1 gm/dL 6.0-8.3 [id number] 11:43:00 Test Item Value Reference Range Comments PROTIME (BEAKER) (test bklp=303) 14.5 seconds 11.7-14.7 INR (BEAKER) (test ysfw=550) 1.1 <=5.9 PARTIAL THROMBOPLASTIN TIME (BEAKER) (test 39.2 seconds 22.5-36.0 dllz=536) RECOMMENDED COUMADIN/WARFARIN INR THERAPY RANGESSTANDARD DOSE: 2.0 - 3.0 Includes: PROPHYLAXIS forvenous thrombosis, systemic embolization; TREATMENT for venous thrombosis and/or pulmonary embolus.HIGH RISK: Target INR is 2.5-3.5 for patients with mechanical heart valves.PLATELET [id number] 11:31:00 Test Item Value Reference Range Comments PLATELET COUNT (BEAKER) (test pwba=741) 501 K/CU MM 150-450 POCT-GLUCOSE [id number] 08:42:00 Test Item Value Reference Range Comments POC-GLUCOSE METER (BEAKER) 146 mg/dL 70-110 TESTED AT [address] (test nrkg=8895) [place] [address] BASIC METABOLIC [id number] 05:39:00 Test Item Value Reference Range Comments SODIUM (BEAKER) (test 137 meq/L 136-145 agxh=613) POTASSIUM (BEAKER) (test 4.7 meq/L 3.5-5.1 ppmq=854) CHLORIDE (BEAKER) (test 109 meq/L 98-107 wlfh=294) CO2 (BEAKER) (test 20 meq/L 22-29 erns=753) BLOOD UREA NITROGEN 43 mg/dL 7-21 (BEAKER) (test nuae=871) CREATININE (BEAKER) (test 3.09 mg/dL 0.57-1.25 nobj=576) GLUCOSE RANDOM (BEAKER) 160 mg/dL 70-105 (test zmtv=418) CALCIUM (BEAKER) (test 9.6 mg/dL 8.4-10.2 yqzc=522) EGFR (BEAKER) (test 15 mL/min/1.73 sq m ESTIMATED GFR IS NOT trod=1254) ACCURATE CREATININE CLEARANCE IN PREDICTING GLOMERULAR FILTRATION RATE. ESTIMATED GFR IS NOT APPLICABLE FOR DIALYSIS PATIENTS. [id number] 05:38:00 Test Item Value Reference Range Comments MAGNESIUM (BEAKER) (test zrar=568) 1.9 mg/dL 1.6-2.6 POCT-GLUCOSE [id number] 21:13:00 Test Item Value Reference Range Comments POC-GLUCOSE METER (BEAKER) 241 mg/dL 70-110 TESTED AT [address] (test zzcg=1146) [facility] [address] RAD, CHEST, 2 [id number] 19:38:00Reason for exam:->coughFINAL REPORT Examination: Two view Chest X-ray. CLINICAL HISTORY: Cough COMPARISON: 09/21/2017 The cardiac silhouette is prominent in size. The patient has been extubated. Thereis a moderate right pleural effusion. Central pulmonary vascular congestion is present. Vague infrahilar opacity in the right lung may reflect a combination of atelectasis, edema and effusion but pneumonitis should be excluded clinically. There is no pneumothorax or acute bony abnormality. Signed: Gasper Johnson MDReport Verified Date/Time: 2017 19:38:01 Reading Location: [address] Reading Room POCT- GLUCOSE [id number] 17:23:00 Test Item Value Reference Range Comments POC-GLUCOSE METER (BEAKER) 190 mg/dL 70-110 TESTED AT [address] (test sglt=5102) [place] [id number] POCT-GLUCOSE [id number] 12:22:00 Test Item Value Reference Range Comments POC-GLUCOSE METER (BEAKER) 239 mg/dL 70-110 TESTED AT [address] (test mzol=6576) [place] [address] BLOOD [id number] 10:00:00 Test Item Value Reference Range Comments CULTURE (BEAKER) (test pooc=9095) No growth in 5 days BLOOD [id number] 10:00:00 Test Item Value Reference Range Comments CULTURE (BEAKER) (test fxps=8949) No growth in 5 days POCT-GLUCOSE [id number] 08:02:00 Test Item Value Reference Range Comments POC-GLUCOSE METER (BEAKER) 196 mg/dL 70-110 TESTED AT [address] (test cinp=8905) [place] [address] [id number] 07:15:00 Test Item Value Reference Range Comments MAGNESIUM (BEAKER) (test ieor=073) 1.8 mg/dL 1.6-2.6 BASIC METABOLIC [id number] 07:15:00 Test Item Value Reference Range Comments SODIUM (BEAKER) (test 136 meq/L 136-145 wgck=422) POTASSIUM (BEAKER) (test 4.4 meq/L 3.5-5.1 ztwj=560) CHLORIDE (BEAKER) (test 109 meq/L 98-107 djln=910) CO2 (BEAKER) (test 19 meq/L 22-29 aqax=956) BLOOD UREA NITROGEN 44 mg/dL 7-21 (BEAKER) (test cgtr=314) CREATININE (BEAKER) (test 3.16 mg/dL 0.57-1.25 tahz=450) GLUCOSE RANDOM (BEAKER) 197 mg/dL 70-105 (test nctx=674) CALCIUM (BEAKER) (test 9.3 mg/dL 8.4-10.2 qgnr=593) EGFR (BEAKER) (test 15 mL/min/1.73 sq m ESTIMATED GFR IS NOT rrvo=5109) ACCURATE CREATININE CLEARANCE IN PREDICTING GLOMERULAR FILTRATION RATE. ESTIMATED GFR IS NOT APPLICABLE FOR DIALYSIS PATIENTS. POCT-GLUCOSE [id number] 22:03:00 Test Item Value Reference Range Comments POC-GLUCOSE METER (BEAKER) 286 mg/dL 70-110 TESTED AT [address] (test ellq=6344) [facility] [address] POCT-GLUCOSE [id number] 21:21:00 Test Item Value Reference Range Comments POC-GLUCOSE METER (BEAKER) 294 mg/dL 70-110 TESTED AT [address] (test xzhm=3558) [facility] [address] POCT-GLUCOSE [id number] 17:10:00 Test Item Value Reference Range Comments POC-GLUCOSE METER (BEAKER) 212 mg/dL 70-110 TESTED AT [address] (test doat=3601) [facility] [address] PROTEIN, RANDOM [id number] 17:00:00 Test Item Value Reference Range Comments PROTEIN, URINE (BEAKER) (test wmxz=8774) 154 mg/dL 0-14 CREATININE, RANDOM [id number] 16:59:00 Test Item Value Reference Range Comments CREATININE URINE (BEAKER) (test tccx=757) 88.8 mg/dL Reference Range: No NormalsPET, CARDIAC PERFUSION MULTIPLE STUDIES, REST AND [id number] 16:36:00Reason for exam:->chest pain, hypokinesis on echoFINAL REPORT PROCEDURE: Rest/Stress MYOCARDIAL PERFUSION PET with regadenoson\\XA9\\ CPT CODE: 93554 INDICATION: Chest pain, hypokinesis on echo HISTORY: Cardiac risk factors: Diabetes mellitus , hypertension, obesity, lipid abnormality, COPD, asthma. Other cardiovascular history: No reported CAD.. Recent cardiac symptoms: Chest pain. Current cardiovascular-related medications: Aspirin, Coreg, amlodipine, Lasix, Zetia, plaquinil PROTOCOL: Limited low-dose CT imaging was performed for attenuation correction. 37.7 mCi of Rb-82 chloride was injectediv at rest, and gated PET (positron emission tomography) images were obtained. Subsequently, 37.4 mCi of Rb-82 chloride was injected iv at expected peak pharmacologic effect , and gated PET images were obtained. PRELIMINARY [...] volume appears normal . RV volume appears normal. Gated images obtained immediately after stress show [...] tracer distribution is normal. 6. No previous [facility] study for comparison. NONINVASIVE RISK STRATIFICATION: The above findings are considered low risk based on the following criteria: 1)Normal or small myocardial perfusion defect at rest or with stress(JACC. 2012;59(9):857-81.) Signed: Selvin Braswell Verified Date/Time: 09/24/2017 16:36:36 POCT- GLUCOSE [id number] 10:53:00 Test Item Value Reference Range Comments POC-GLUCOSE METER (BEAKER) 158 mg/dL 70-[address] [facility] [address] [facility] (test odmd=6133) [facility] [address] POCT-GLUCOSE [id number] 07:31:00 Test Item Value Reference Range Comments POC-GLUCOSE METER (BEAKER) 142 mg/dL 70-[address] [facility] [address] [facility] (test gulp=6218) [facility] [address] BASIC METABOLIC [id number] 05:57:00 Test Item Value Reference Range Comments SODIUM (BEAKER) (test 138 meq/L 136-145 ypis=082) POTASSIUM (BEAKER) (test 4.3 meq/L 3.5-5.1 sevn=000) CHLORIDE (BEAKER) (test 110 meq/L 98-107 ydjp=286) CO2 (BEAKER) (test 19 meq/L 22-29 kjbc=063) BLOOD UREA NITROGEN 42 mg/dL 7-21 (BEAKER) (test omly=049) CREATININE (BEAKER) (test 3.58 mg/dL 0.57-1.25 zvee=480) GLUCOSE RANDOM (BEAKER) 139 mg/dL 70-105 (test zpgk=755) CALCIUM (BEAKER) (test 9.4 mg/dL 8.4-10.2 lbnd=560) EGFR (BEAKER) (test 13 mL/min/1.73 sq m ESTIMATED GFR IS NOT azvp=7336) ACCURATE CREATININE CLEARANCE IN PREDICTING GLOMERULAR FILTRATION RATE. ESTIMATED GFR IS NOT APPLICABLE FOR DIALYSIS PATIENTS. [id number] 05:13:00 Test Item Value Reference Range Comments MAGNESIUM (BEAKER) (test aocw=469) 1.9 mg/dL 1.6-2.6 VANCOMYCIN LEVEL, [id number] 05:10:00 Test Item Value Reference Range Comments VANCOMYCIN RANDOM (BEAKER) (test vnsq=761) 16.6 ug/mL Reference Range: No NormalsU/S, RENAL, [id number] 22:13:00Reason for exam:->Elevated creatinineFINAL REPORT U/S, RENAL, COMPLETE CLINICAL INDICATION: "Elevated creatinine"COMPARISON: None TECHNIQUE: The kidneys and urinary bladder were evaluated using real time ferreira scale and color Doppler sonography. FINDINGS:Right kidney: Thin cortex. No hydronephrosis or mass.Left kidney: Thin cortex. No hydronephrosis. Scattered simple renal cysts. Renal Vasculature: Doppler interrogation reveals preserved vascular flow in the main renal arteries and veins bilaterally.The visualized portions of the abdominal aorta and IVC are unremarkable. Urinary bladder: Unremarkable. IMPRESSION: No hydronephrosis.Thinned renal cortices. Signed: Goldie Benson MDReport Verified Date/Time: 09/23/2017 22:13:52 Reading Location: [address] Ortho Consult Reading Room POCT-GLUCOSE [id number] 21:25:00 Test Item Value Reference Range Comments POC-GLUCOSE METER (BEAKER) 220 mg/dL 70-110 TESTED AT [address] (test kcdg=0991) [place] [address] POCT-GLUCOSE [id number] 17:02:00 Test Item Value Reference Range Comments POC-GLUCOSE METER (BEAKER) 223 mg/dL 70-110 TESTED AT [address] (test qmnt=4124) [place] [address] BRONCHIAL CULTURE + GRAM [id number] 15:04:00 Test Item Value Reference Range Comments CULTURE (BEAKER) (test kqld=0782) No growth GRAM STAIN RESULT (BEAKER) (test <1+ WBCs nlwu=9402) GRAM STAIN RESULT (BEAKER) (test No organisms seen nmnv=07939) URINALYSIS W/ REFLEX URINE [id number] 13:20:00 Test Item Value Reference Range Comments COLOR (BEAKER) (test ozih=299) Yellow CLARITY (BEAKER) (test fzim=692) Hazy SPECIFIC GRAVITY UA (BEAKER) (test wjqy=639) 1.010 1.001-1.035 PH UA (BEAKER) (test ipap=044) 5.5 5.0-8.0 PROTEIN UA (BEAKER) (test ktdu=130) 100 mg/dL Negative GLUCOSE UA (BEAKER) (test lbgq=819) 30 mg/dL Negative KETONES UA (BEAKER) (test qahs=012) Negative Negative BILIRUBIN UA (BEAKER) (test bdzf=757) Negative Negative BLOOD UA (BEAKER) (test sxtd=858) Negative Negative NITRITE UA (BEAKER) (test vdwb=826) Negative Negative LEUKOCYTE ESTERASE UA (BEAKER) (test iqjq=960) Negative Negative UROBILINOGEN UA (BEAKER) (test axey=065) 0.2 mg/dL 0.2-1.0 RBC UA (BEAKER) (test huft=111) 0 /HPF WBC UA (BEAKER) (test gpil=306) 1 /HPF BACTERIA (BEAKER) (test czoh=305) Occasional MUCUS (BEAKER) (test lhnp=9421) Rare SQUAMOUS EPITHELIAL (BEAKER) (test yyzi=320) 11 /HPF YEAST (BEAKER) (test elbf=3174) Rare SOURCE(BEAKER) (test ohwi=2867) CREATININE, RANDOM [id number] 13:13:00 Test Item Value Reference Range Comments CREATININE URINE (BEAKER) (test envy=842) 101.2 mg/dL Reference Range: No NormalsSODIUM, RANDOM [id number] 13:13:00 Test Item Value Reference Range Comments SODIUM URINE (BEAKER) (test vkra=838) 31 meq/L Reference Range: No NormalsPOCT-GLUCOSE [id number] 11:37:00 Test Item Value Reference Range Comments POC-GLUCOSE METER (BEAKER) 342 mg/dL 70-[address] [facility] [address] [facility] (test ocle=7807) [facility] [address] VANCOMYCIN LEVEL, [id number] 08:10:00 Test Item Value Reference Range Comments VANCOMYCIN RANDOM (BEAKER) (test fpaq=590) 20.6 ug/mL Reference Range: No NormalsBASIC METABOLIC [id number] 08:05:00 Test Item Value Reference Range Comments SODIUM (BEAKER) (test 140 meq/L 136-145 okvj=561) POTASSIUM (BEAKER) (test 4.2 meq/L 3.5-5.1 nlto=188) CHLORIDE (BEAKER) (test 109 meq/L 98-107 farv=787) CO2 (BEAKER) (test 18 meq/L 22-29 cxyj=680) BLOOD UREA NITROGEN 51 mg/dL 7-21 (BEAKER) (test kczy=397) CREATININE (BEAKER) (test 3.45 mg/dL 0.57-1.25 jjsg=452) GLUCOSE RANDOM (BEAKER) 159 mg/dL 70-105 (test mobv=906) CALCIUM (BEAKER) (test 9.4 mg/dL 8.4-10.2 iupi=054) EGFR (BEAKER) (test 14 mL/min/1.73 sq m ESTIMATED GFR IS NOT lspa=0372) ACCURATE CREATININE CLEARANCE IN PREDICTING GLOMERULAR FILTRATION RATE. ESTIMATED GFR IS NOT APPLICABLE FOR DIALYSIS PATIENTS. CBC W/PLT COUNT & AUTO [id number] 07:43:00 Test Item Value Reference Range Comments WHITE BLOOD CELL COUNT (BEAKER) (test vgwk=559) 12.7 K/ L 3.5-10.5 RED BLOOD CELL COUNT (BEAKER) (test ktds=683) 2.61 M/ L 3.93-5.22 HEMOGLOBIN (BEAKER) (test tcry=036) 7.9 GM/DL 11.2-15.7 HEMATOCRIT (BEAKER) (test eoij=780) 24.7 % 34.1-44.9 MEAN CORPUSCULAR VOLUME (BEAKER) (test eejz=601) 94.6 fL 79.4-94.8 MEAN CORPUSCULAR HEMOGLOBIN (BEAKER) (test 30.3 pg 25.6-32.2 wiej=255) MEAN CORPUSCULAR HEMOGLOBIN CONC (BEAKER) (test 32.0 GM/DL 32.2-35.5 taaz=606) RED CELL DISTRIBUTION WIDTH (BEAKER) (test 14.2 % 11.7-14.4 brgw=898) PLATELET COUNT (BEAKER) (test hlvy=832) 466 K/CU MM 150-450 MEAN PLATELET VOLUME (BEAKER) (test scfi=237) 10.6 fL 9.4-12.3 NUCLEATED RED BLOOD CELLS (BEAKER) (test 0 /100 WBC 0-0 bhdl=543) NEUTROPHILS RELATIVE PERCENT (BEAKER) (test 64 % xmlt=701) LYMPHOCYTES RELATIVE PERCENT (BEAKER) (test 17 % vzll=070) MONOCYTES RELATIVE PERCENT (BEAKER) (test 11 % qmqr=254) EOSINOPHILS RELATIVE PERCENT (BEAKER) (test 7 % lzxu=795) BASOPHILS RELATIVE PERCENT (BEAKER) (test 0 % glgg=171) NEUTROPHILS ABSOLUTE COUNT (BEAKER) (test 8.16 K/ L 1.56-6.13 nxde=138) LYMPHOCYTES ABSOLUTE COUNT (BEAKER) (test 2.14 K/ L 1.18-3.74 jbdi=102) MONOCYTES ABSOLUTE COUNT (BEAKER) (test 1.35 K/ L 0.24-0.36 wrbj=782) EOSINOPHILS ABSOLUTE COUNT (BEAKER) (test 0.83 K/ L 0.04-0.36 cdzf=014) BASOPHILS ABSOLUTE COUNT (BEAKER) (test 0.04 K/ L 0.01-0.08 fydr=102) IMMATURE GRANULOCYTES-RELATIVE PERCENT (BEAKER) 2 % 0-1 (test anuh=8583) [id number] 07:35:00 Test Item Value Reference Range Comments MAGNESIUM (BEAKER) (test ztrq=326) 1.9 mg/dL 1.6-2.6 POCT-GLUCOSE [id number] 07:33:00 Test Item Value Reference Range Comments POC-GLUCOSE METER (BEAKER) 196 mg/dL 70-110 TESTED AT [address] (test jwkx=6119) [place] [address] POCT-GLUCOSE [id number] 21:15:00 Test Item Value Reference Range Comments POC-GLUCOSE METER (BEAKER) 243 mg/dL 70-110 TESTED AT [address] (test sjvb=4592) [place] [address] POCT-GLUCOSE [id number] 17:44:00 Test Item Value Reference Range Comments POC-GLUCOSE METER (BEAKER) 218 mg/dL 70-110 TESTED AT [address] (test wbyw=1713) [place] [address] CMV PCR, [id number] 17:31:00 Test Item Value Reference Range Comments CMV VIRAL LOAD - NEGATIVE Negative or below the linear (BEAKER) (test ucqx=4496) range of the assay (<375 copies/mL) Cytomegalovirus (CMV) infection can cause significant disease in immunosuppressed patients. However,it is common for CMV to manifest as a limited infection which is of no clinical significance in immunosuppressed patients or in healthy individuals.Viral load measurements are helpful to identify clinical CMV infection and to guide the pre-emptive management of antiviral therapy. For treatment of CMVinfection due to reactivation in transplant recipients, a threshold between 4,000 and 5,000 copies/mL is suggested. For treatment of primary CMV infection, a lower threshold can be used.CMV infection may also be monitored using weekly serial measurements. Serial measurements of CMV DNA viral load canbe evaluated by identifying a 10- fold change, as well as assessing the CMV DNA viral load and the clinical context for each patient.The plasma CMV DNA viral load was detected using quantitative polymerase chain reaction and fluorescent monitoring of a specific hybridized probe. Genetic variation and other factors can affect the accuracy of nucleic acid testing. Therefore, the results should be interpreted in light of clinical data. A negative result may not exclude the presence of CMV disease.This test was developed and its performance characteristics determined by the [facility] Pathology Department, Section of Molecular Pathology. It has not been cleared or approved by the U.S. Food and Drug Administration (FDA), since FDA approval is not required for clinical use of the test. Validation was done as required by The Clinical Laboratory Improvement Amendments of 1988.POCT-GLUCOSE [id number] 12:39:00 Test Item Value Reference Range Comments POC-GLUCOSE METER (BEAKER) 210 mg/dL 70-110 TESTED AT [address] (test stkl=7741) [place] [id number] POCT-GLUCOSE [id number] 07:41:00 Test Item Value Reference Range Comments POC-GLUCOSE METER (BEAKER) 151 mg/dL 70-110 TESTED AT [place] [id number] [facility] (test adnc=2075) [place] [id number] BASIC METABOLIC [id number] 05:54:00 Test Item Value Reference Range Comments SODIUM (BEAKER) (test 140 meq/L 136-145 tuxi=745) POTASSIUM (BEAKER) (test 4.4 meq/L 3.5-5.1 zdvh=829) CHLORIDE (BEAKER) (test 109 meq/L 98-107 xluj=977) CO2 (BEAKER) (test 20 meq/L 22-29 mjdy=246) BLOOD UREA NITROGEN 49 mg/dL 7-21 (BEAKER) (test ykra=124) CREATININE (BEAKER) (test 3.42 mg/dL 0.57-1.25 xcfd=023) GLUCOSE RANDOM (BEAKER) 140 mg/dL 70-105 (test bixa=340) CALCIUM (BEAKER) (test 9.4 mg/dL 8.4-10.2 dfef=389) EGFR (BEAKER) (test 14 mL/min/1.73 sq m ESTIMATED GFR IS NOT urge=5530) ACCURATE CREATININE CLEARANCE IN PREDICTING GLOMERULAR FILTRATION RATE. ESTIMATED GFR IS NOT APPLICABLE FOR DIALYSIS PATIENTS. VANCOMYCIN LEVEL, [id number] 05:54:00 Test Item Value Reference Range Comments VANCOMYCIN RANDOM (BEAKER) (test thrp=000) 30.7 ug/mL Reference Range: No [id number] 05:47:00 Test Item Value Reference Range Comments MAGNESIUM (BEAKER) (test xubl=589) 1.8 mg/dL 1.6-2.6 CBC W/PLT COUNT & AUTO [id number] 05:15:00 Test Item Value Reference Range Comments WHITE BLOOD CELL COUNT (BEAKER) (test msum=775) 12.2 K/ L 3.5-10.5 RED BLOOD CELL COUNT (BEAKER) (test ytfn=227) 2.44 M/ L 3.93-5.22 HEMOGLOBIN (BEAKER) (test wdpz=013) 7.7 GM/DL 11.2-15.7 HEMATOCRIT (BEAKER) (test bzxz=314) 23.2 % 34.1-44.9 MEAN CORPUSCULAR VOLUME (BEAKER) (test gpot=831) 95.1 fL 79.4-94.8 MEAN CORPUSCULAR HEMOGLOBIN (BEAKER) (test 31.6 pg 25.6-32.2 yvti=578) MEAN CORPUSCULAR HEMOGLOBIN CONC (BEAKER) (test 33.2 GM/DL 32.2-35.5 lpne=610) RED CELL DISTRIBUTION WIDTH (BEAKER) (test 14.1 % 11.7-14.4 uvos=730) PLATELET COUNT (BEAKER) (test rqgg=090) 396 K/CU MM 150-450 MEAN PLATELET VOLUME (BEAKER) (test auxc=507) 9.9 fL 9.4-12.3 NUCLEATED RED BLOOD CELLS (BEAKER) (test 0 /100 WBC 0-0 rfoy=864) NEUTROPHILS RELATIVE PERCENT (BEAKER) (test 63 % xval=072) LYMPHOCYTES RELATIVE PERCENT (BEAKER) (test 16 % xjao=435) MONOCYTES RELATIVE PERCENT (BEAKER) (test 11 % eopm=975) EOSINOPHILS RELATIVE PERCENT (BEAKER) (test 7 % nfeo=868) BASOPHILS RELATIVE PERCENT (BEAKER) (test 0 % nhnh=246) NEUTROPHILS ABSOLUTE COUNT (BEAKER) (test 7.70 K/ L 1.56-6.13 barx=940) LYMPHOCYTES ABSOLUTE COUNT (BEAKER) (test 1.99 K/ L 1.18-3.74 ybxk=476) MONOCYTES ABSOLUTE COUNT (BEAKER) (test 1.34 K/ L 0.24-0.36 zyju=543) EOSINOPHILS ABSOLUTE COUNT (BEAKER) (test 0.80 K/ L 0.04-0.36 padx=059) BASOPHILS ABSOLUTE COUNT (BEAKER) (test 0.05 K/ L 0.01-0.08 wnnb=575) IMMATURE GRANULOCYTES-RELATIVE PERCENT (BEAKER) 3 % 0-1 (test bsrg=2327) POCT-GLUCOSE [id number] 21:10:00 Test Item Value Reference Range Comments POC-GLUCOSE METER (BEAKER) 209 mg/dL 70-110 TESTED AT [address] (test whdw=5819) [place] [address] POCT-GLUCOSE [id number] 16:57:00 Test Item Value Reference Range Comments POC-GLUCOSE METER (BEAKER) 90 mg/dL 70-110 TESTED AT [address] (test hwqo=7454) [place] [id number] POCT-GLUCOSE [id number] 12:39:00 Test Item Value Reference Range Comments POC-GLUCOSE METER (BEAKER) 63 mg/dL 70-110 TESTED AT [address] (test kfyt=3259) [place] [id number] BLOOD GAS, [id number] 11:19:00 Test Item Value Reference Range Comments PH ARTERIAL (BEAKER) (test lgve=825) 7.43 7.35-7.45 PCO2 ARTERIAL (BEAKER) (test uuth=432) 32 mmHg 35-45 PO2 ARTERIAL (BEAKER) (test bpjv=458) 226 mmHg 80-90 O2 SATURATION ARTERIAL (BEAKER) (test zpxi=198) 99.5 % 96.0-97.0 HCO3 ARTERIAL (BEAKER) (test pvhu=667) 21 mmol/L 21-29 BASE EXCESS ARTERIAL (BEAKER) (test ktik=018) -3.3 mmol/L -2.0-3.0 PATIENT TEMPERATURE (BEAKER) (test pnuz=2023) 36.9 C FIO2 (BEAKER) (test zunk=3172) 60.0 % RAD, CHEST, 1 VIEW, NON [id number] 09:41:00Reason for exam:-> intubationShould this be performed at the bedside?->YesFINAL REPORT CLINICAL HISTORY: intubation TECHNIQUE: 1 view of the chest. COMPARISON: 09/21/2017 IMPRESSION: The ETT projects approximately 1 cm above the dawna. The nasogastric tube is below the diaphragm. Right asymmetric airspace opacities and right pleural effusion are grossly unchanged. The cardiomediastinal silhouette is magnified by technique. Signed: Aleksander Guthrie MDReport Verified Date/Time: 09/21/2017 09:41:46 Reading Location: [facility] Radiology Reading Room POCT-GLUCOSE [id number] 08:45:00 Test Item Value Reference Range Comments POC-GLUCOSE METER (BEAKER) 72 mg/dL 70-[address] [facility] [address] [facility] (test ccgy=7516) [facility] [address] [id number] 06:31:00 Test Item Value Reference Range Comments MAGNESIUM (BEAKER) (test mnsp=195) 2.0 mg/dL 1.6-2.6 BASIC METABOLIC [id number] 06:31:00 Test Item Value Reference Range Comments SODIUM (BEAKER) (test 139 meq/L 136-145 rzin=949) POTASSIUM (BEAKER) (test 4.6 meq/L 3.5-5.1 tmla=148) CHLORIDE (BEAKER) (test 109 meq/L 98-107 yhpj=621) CO2 (BEAKER) (test 19 meq/L 22-29 fovy=663) BLOOD UREA NITROGEN 44 mg/dL 7-21 (BEAKER) (test wvmr=096) CREATININE (BEAKER) (test 3.07 mg/dL 0.57-1.25 tcnj=914) GLUCOSE RANDOM (BEAKER) 83 mg/dL 70-105 (test menz=252) CALCIUM (BEAKER) (test 9.5 mg/dL 8.4-10.2 lcvg=498) EGFR (BEAKER) (test 15 mL/min/1.73 sq m ESTIMATED GFR IS NOT lojp=6591) ACCURATE CREATININE CLEARANCE IN PREDICTING GLOMERULAR FILTRATION RATE. ESTIMATED GFR IS NOT APPLICABLE FOR DIALYSIS PATIENTS. CBC W/PLT COUNT & AUTO [id number] 05:56:00 Test Item Value Reference Range Comments WHITE BLOOD CELL COUNT (BEAKER) (test cmkp=216) 12.8 K/ L 3.5-10.5 RED BLOOD CELL COUNT (BEAKER) (test tnfi=315) 2.67 M/ L 3.93-5.22 HEMOGLOBIN (BEAKER) (test lduv=144) 8.3 GM/DL 11.2-15.7 HEMATOCRIT (BEAKER) (test jhpa=256) 25.4 % 34.1-44.9 MEAN CORPUSCULAR VOLUME (BEAKER) (test oabx=684) 95.1 fL 79.4-94.8 MEAN CORPUSCULAR HEMOGLOBIN (BEAKER) (test 31.1 pg 25.6-32.2 aimz=839) MEAN CORPUSCULAR HEMOGLOBIN CONC (BEAKER) (test 32.7 GM/DL 32.2-35.5 jhuj=988) RED CELL DISTRIBUTION WIDTH (BEAKER) (test 14.3 % 11.7-14.4 gytk=837) PLATELET COUNT (BEAKER) (test rrtm=378) 394 K/CU MM 150-450 MEAN PLATELET VOLUME (BEAKER) (test igxc=217) 10.3 fL 9.4-12.3 NUCLEATED RED BLOOD CELLS (BEAKER) (test 0 /100 WBC 0-0 tkbl=053) NEUTROPHILS RELATIVE PERCENT (BEAKER) (test 63 % nqza=328) LYMPHOCYTES RELATIVE PERCENT (BEAKER) (test 16 % fzja=373) MONOCYTES RELATIVE PERCENT (BEAKER) (test 11 % hauh=938) EOSINOPHILS RELATIVE PERCENT (BEAKER) (test 6 % owia=390) BASOPHILS RELATIVE PERCENT (BEAKER) (test 0 % geou=610) NEUTROPHILS ABSOLUTE COUNT (BEAKER) (test 8.06 K/ L 1.56-6.13 tckv=561) LYMPHOCYTES ABSOLUTE COUNT (BEAKER) (test 2.00 K/ L 1.18-3.74 seib=484) MONOCYTES ABSOLUTE COUNT (BEAKER) (test 1.43 K/ L 0.24-0.36 onzp=005) EOSINOPHILS ABSOLUTE COUNT (BEAKER) (test 0.80 K/ L 0.04-0.36 fsqp=208) BASOPHILS ABSOLUTE COUNT (BEAKER) (test 0.05 K/ L 0.01-0.08 cxom=555) IMMATURE GRANULOCYTES-RELATIVE PERCENT (BEAKER) 4 % 0-1 (test umms=7793) RAD, CHEST, 1 VIEW, NON [id number] 03:49:00Reason for exam:->PNAShould this be performed at the bedside?->YesFINAL REPORT History: Pneumonia. Comparison: 09/19/2017 Findings: A single view of the chest is submitted. The examination is limited by low lung volumes. The cardiac silhouetteis prominent in size but magnified by low lung volumes and portable technique.. There is central pulmonary vascular congestion. The right hemidiaphragm remains elevated. Worsening opacity throughout the right lung and in the left lower lung may reflect some combination of atelectasis, edema and effusion. Pneumonitis should be excluded clinically. Follow-up imaging after completion of a course of treatment is recommended to exclude an underlying lesion. There is no pneumothorax or acute bony abnormality. Signed: [facility] Verified Date/Time: 09/21/2017 03:49:47 Reading Location: [address] Reading Room POCT-GLUCOSE [id number] 22:14:00 Test Item Value Reference Range Comments POC-GLUCOSE METER (BEAKER) 173 mg/dL 70-110 TESTED AT [address] (test vayv=3752) [place] [address] LEGIONELLA ANTIGEN, [id number] 19:27:00 Test Item Value Reference Range Comments L. PNEUMOPHILA SEROGP 1 Negative - see Negative for L. UR AG (BEAKER) (test comment pneumophila serogroup 1 nbxs=2509) antigen, suggesting no recent or current infection with this serogroup. Legionellosis cannot be ruled out since other serogroups and species may cause disease. POCT-GLUCOSE [id number] 18:01:00 Test Item Value Reference Range Comments POC-GLUCOSE METER (BEAKER) 237 mg/dL 70-110 TESTED AT [address] (test okcr=6907) [place] [id number] HEMOGLOBIN [id number] 14:19:00 Test Item Value Reference Range Comments HEMOGLOBIN A1C (BEAKER) (test pcpj=814) 6.8 % 4.3-6.1 RESPIRATORY PANEL [id number] 13:56:00 Test Item Value Reference Range Comments HUMAN METAPNEUMOVIRUS (BEAKER) (test Not detected Not detected, Inconclusive yypn=8167) RHINOVIRUS (BEAKER) (test visz=7820) Not detected Not detected, Inconclusive INFLUENZA A (BEAKER) (test Not detected Not detected, Inconclusive ftxa=4965) INFLUENZA A SUBTYPE H1 (BEAKER) Not detected Not detected, Inconclusive (test pafh=0538) INFLUENZA A SUBTYPE H3 (BEAKER) Not detected Not detected, Inconclusive (test biam=2898) INFLUENZA A SUBTYPE H1-2009 (BEAKER) Not detected Not detected, Inconclusive (test ocnw=4066) INFLUENZA B (BEAKER) (test Not detected Not detected, Inconclusive mtrh=2503) RESPIRATORY SYNCYTIAL VIRUS (BEAKER) Not detected Not detected, Inconclusive (test lvov=3448) PARAINFLUENZA VIRUS 1 (BEAKER) (test Not detected Not detected, Inconclusive jzbk=9436) PARAINFLUENZA VIRUS 2 (BEAKER) (test Not detected Not detected, Inconclusive hqvy=7694) PARAINFLUENZA VIRUS 3 (BEAKER) (test Not detected Not detected, Inconclusive xgoe=0756) PARAINFLUENZA VIRUS 4 (BEAKER) (test Not detected Not detected, Inconclusive yfxy=5100) ADENOVIRUS (BEAKER) (test mhob=9688) Not detected Not detected, Inconclusive CORONAVIRUS 229E (BEAKER) (test Not detected Not detected, Inconclusive wene=9225) CORONAVIRUS HKU1 (BEAKER) (test Not detected Not detected, Inconclusive tvav=7699) CORONAVIRUS NL63 (BEAKER) (test Not detected Not detected, Inconclusive onuv=6050) CORONAVIRUS OC43 (BEAKER) (test Not detected Not detected, Inconclusive xnry=5457) BORDETELLA PERTUSSIS (BEAKER) (test Not detected Not detected, Inconclusive pnyo=3664) CHLAMYDOPHILA PNEUMONIAE (BEAKER) Not detected Not detected, Inconclusive (test clog=1911) MYCOPLASMA PNEUMONIAE (BEAKER) (test Not detected Not detected, Inconclusive vkjs=9041) [id number] 13:17:00 Test Item Value Reference Range Comments PROCALCITONIN (BEAKER) (test gwbr=8990) 2.35 ng/mL <0.05 SEPSIS RISK (ng/mL)Low: 0.05-0.50Intermediate: 0.51-2.00High: & gt;=2.01POCT-GLUCOSE [id number] 12:03:00 Test Item Value Reference Range Comments POC-GLUCOSE METER (BEAKER) 126 mg/dL 70-110 TESTED AT [address] (test oefo=6126) [place] [address] B-TYPE NATRIURETIC FACTOR (BNP)2017-09-20 11:15:00 Test Item Value Reference Range Comments B-TYPE NATRIURETIC PEPTIDE (BEAKER) (test gbpa=797) 22 pg/mL 0-100 LACTIC ACID, VENOUS, WHOLE [id number] 11:05:00 Test Item Value Reference Range Comments LACTATE BLOOD VENOUS (2) (BEAKER) (test 0.5 mmol/L 0.5-2.2 uhyj=0283) Effective 01/27/2016: Units/Reference Range ChangeNew: 0.5-2.2 mmol/L Previous: 5 -20 mg/dLPOCT-GLUCOSE [id number] 10:09:00 Test Item Value Reference Range Comments POC-GLUCOSE METER (BEAKER) 104 mg/dL 70-110 TESTED AT [address] (test qefx=7393) [place] [address] STREP PNEUMONIAE [id number] 09:55:00 Test Item Value Reference Range Comments STREP PNEUMONIAE ANTIGEN Presumptive negative for Presumptive negative for (AKER) (test pneumococcal pneumonia - pneumococcal pneumonia - ranc=9558) see comment see commen Presumptive negative for pneumococcal pneumonia, suggesting no current or recent pneumococcal infection. Infection due to S. pneumoniae cannot be ruled out since the antigen present in the sample may be below the detection limit of the test.CBC W/PLT COUNT & AUTO [id number] 09:42:00 Test Item Value Reference Range Comments WHITE BLOOD CELL COUNT (BEAKER) (test eakw=918) 12.4 K/ L 3.5-10.5 RED BLOOD CELL COUNT (BEAKER) (test hkra=135) 2.65 M/ L 3.93-5.22 HEMOGLOBIN (BEAKER) (test fyii=510) 8.2 GM/DL 11.2-15.7 HEMATOCRIT (BEAKER) (test neex=901) 25.3 % 34.1-44.9 MEAN CORPUSCULAR VOLUME (BEAKER) (test idon=347) 95.5 fL 79.4-94.8 MEAN CORPUSCULAR HEMOGLOBIN (BEAKER) (test 30.9 pg 25.6-32.2 ktoz=454) MEAN CORPUSCULAR HEMOGLOBIN CONC (BEAKER) (test 32.4 GM/DL 32.2-35.5 scah=322) RED CELL DISTRIBUTION WIDTH (BEAKER) (test 14.3 % 11.7-14.4 dvpv=008) PLATELET COUNT (BEAKER) (test kubc=817) 328 K/CU MM 150-450 MEAN PLATELET VOLUME (BEAKER) (test dkdg=298) 10.8 fL 9.4-12.3 NUCLEATED RED BLOOD CELLS (BEAKER) (test 0 /100 WBC 0-0 vllx=534) IMMATURE GRANULOCYTES-RELATIVE PERCENT (BEAKER) 6 % 0-1 (test kain=2887) (MANUAL DIFFERENTIAL)2017-09-20 09:42:00 Test Item Value Reference Range Comments NEUTROPHILS - REL (DIFF) (BEAKER) (test 54 % zfrk=5580) LYMPHOCYTES - REL (DIFF) (BEAKER) (test 13 % hmjh=0521) MONOCYTES - REL (DIFF) (BEAKER) (test mqnc=5403) 11 % EOSINOPHILS - REL (DIFF) (BEAKER) (test 6 % yhsu=3712) METAMYELOCYTES-REL (DIFF) (BEAKER) (test 3 % 0-0 cxog=862) MYELOCYTES-REL (DIFF) (BEAKER) (test fhds=5662) 2 % 0-0 BANDS - REL (DIFF) (BEAKER) (test mvdz=7685) 11 % 0-10 NEUTROPHILS - ABS (DIFF) (BEAKER) (test 6.70 K/ L 1.80-8.00 gfqc=8757) LYMPHOCYTES - ABS (DIFF) (BEAKER) (test 1.61 K/ L 1.48-4.50 ihta=2016) MONOCYTES - ABS (DIFF) (BEAKER) (test koft=9305) 1.36 K/ L 0.00-1.30 EOSINOPHILS - ABS (DIFF) (BEAKER) (test 0.74 K/ L 0.00-0.50 tone=1415) METAMYELOCTYES - ABS (DIFF) (BEAKER) (test 0.37 K/ L 0.00-0.00 asww=499) BANDS-ABS (DIFF) (BEAKER) (test ffdc=9823) 1.4 K/ L 0.0-0.8 MYELOCYTES-ABS (DIFF) (BEAKER) (test qixg=1930) 0.25 K/ L 0.00-0.00 TOTAL COUNTED (BEAKER) (test qttt=3232) 100 BANDS + SEGMENTED NEUTROPHILS (BEAKER) (test 8.06 zvva=6177) WBC MORPHOLOGY (BEAKER) (test xqro=033) Normal PLT MORPHOLOGY (BEAKER) (test buvy=827) Normal ANISOCYTOSIS (BEAKER) (test pqxl=490) 2+ moderate POIKILOCYTES (BEAKER) (test dsgg=411) 2+ moderate POCT-GLUCOSE [id number] 08:34:00 Test Item Value Reference Range Comments POC-GLUCOSE METER (BEAKER) 55 mg/dL 70-110 Notified HONG LERMA/TESTED AT [facility] (test terl=9323) [address] [facility] [address] [id number] 04:42:00 Test Item Value Reference Range Comments FERRITIN (BEAKER) (test wulf=908) 535 ng/mL 5-275 IRON, TIBC, % SAT. (WITHOUT FERRITIN)2017-09-20 04:22:00 Test Item Value Reference Range Comments IRON (BEAKER) (test zree=920) 27 ug/dL 40-160 TOTAL IRON BINDING CAPACITY (BEAKER) (test 186 ug/dL 250-450 cdqb=826) IRON % SATURATION (2) (BEAKER) (test sgap=6728) 15 % 20-55 [id number] 03:41:00 Test Item Value Reference Range Comments MAGNESIUM (BEAKER) (test sfis=358) 1.8 mg/dL 1.6-2.6 [id number] 03:41:00 Test Item Value Reference Range Comments PHOSPHORUS (BEAKER) (test xell=881) 4.2 mg/dL 2.3-4.7 BASIC METABOLIC [id number] 03:32:00 Test Item Value Reference Range Comments SODIUM (BEAKER) (test 138 meq/L 136-145 oohw=940) POTASSIUM (BEAKER) (test 4.3 meq/L 3.5-5.1 tfch=090) CHLORIDE (BEAKER) (test 110 meq/L 98-107 bdcn=855) CO2 (BEAKER) (test 19 meq/L 22-29 gazi=727) BLOOD UREA NITROGEN 45 mg/dL 7-21 (BEAKER) (test tqln=734) CREATININE (BEAKER) (test 2.64 mg/dL 0.57-1.25 rjol=517) GLUCOSE RANDOM (BEAKER) 116 mg/dL 70-105 (test ayrn=299) CALCIUM (BEAKER) (test 8.8 mg/dL 8.4-10.2 ozoh=693) EGFR (BEAKER) (test 18 mL/min/1.73 sq m ESTIMATED GFR IS NOT yvyc=4517) ACCURATE CREATININE CLEARANCE IN PREDICTING GLOMERULAR FILTRATION RATE. ESTIMATED GFR IS NOT APPLICABLE FOR DIALYSIS PATIENTS. CREATINE KINASE (CK), TOTAL AND [id number] 03:32:00 Test Item Value Reference Range Comments CREATINE KINASE TOTAL (BEAKER) (test zfls=983) 76 U/L 29-200 CREATINE KINASE-MB (BEAKER) (test skuy=602) 1.9 ng/mL 0.0-6.6 CREATINE KINASE-MB INDEX (BEAKER) (test vhdq=581) 2.5 % CK-MB Reference Range:<6.7 Normal6.7-10.0 Borderline>10.0 AbnormalTROPONIN [id number] 03:32:00 Test Item Value Reference Range Comments TROPONIN I (BEAKER) (test zucy=127) < ng/mL 0.00-0.03 Troponin I (TnI) levels must be interpreted [...] failure, acidosis, acute neurological disease, and persistent tachyarrhythmia.POCT-GLUCOSE [id number] 01:15:00 Test Item Value Reference Range Comments POC-GLUCOSE METER (BEAKER) 157 mg/dL 70-[address] [facility] [address] [place] [id number] (test drft=4135) [facility] [address] RAD, CHEST, 1 VIEW, NON [id number] 00:10:00Reason for exam:->RLL PNAShould this be performed at the bedside?->YesFINAL REPORT RAD, CHEST, 1 VIEW, NON DEPT INDICATION: RLL PNA COMPARISON: None TECHNIQUE: Single frontal view of the chest. IMPRESSION:Low lung volumes.Cardiac silhouette not well visualized.Patchy airspace opacities in the right lung and left lung base concerning for a pneumonia.No pneumothorax.No acute osseous abnormality. Signed: Goldie Benson MDReport Verified Date/Time: 09/20/2017 00:10:56 Reading Location: [address] Ortho Consult Reading Room
[2018-05-25] MEDS ORDERED: ASPIRIN 81 MG CHEWABLE TABLET ONE (01:32)
[2018-05-25] MEDS ORDERED: FAMOTIDINE 20 MG/2 ML VIAL IV ONE (01:32)
[2018-05-25] MEDS ORDERED: ONDANSETRON 4 MG/2 ML VIAL ONE (01:37)
[2018-05-25] MEDS ORDERED: ACETAMINOPHEN 500 MG TAB PO PRN (01:46)
[2018-05-25] MEDS ORDERED: MORPHINE 4 MG/ML SYR IV PRN (01:46)
[2018-05-25] MEDS ORDERED: ALPRAZOLAM 0.25 MG TABLET PO PRN (01:46)
[2018-05-25 01:54] LABS: Absolute Lymphocytes (CBC) 1.3 K/uL (0.7-4.9); Absolute Monocytes 0.9 K/uL (0.1-1.3); Absolute Neutrophil 3.4 K/uL (1.8-8.0); Basophils % 1.1 % (0-1.3); Eosinophils % 13.7 % (0-4.4); Hematocrit 31.6 % (36.0-45.0); MCH 33.7 pg (27.0-35.0); MCV 100.5 fL (80-100); MPV 9.9 fL (7.6-11.3); Monocytes % 14.1 % (3.3-12.3); RBC Red Blood Cell Count 3.14 M/uL (3.86-4.86)
[2018-05-25 01:55] LABS: Protime INR 1.01
[2018-05-25] MEDS ORDERED: MORPHINE 4 MG/ML SYR ONE (02:07)
[2018-05-25 02:09] LABS: Albumin 2.9 g/dL (3.4-5.0); Bilirubin Direct 0.2 mg/dL (0-0.2); Bilirubin Total 0.4 mg/dL (0.2-1.0); CKMB Creatine Kinase MB 1.3 ng/mL (0.3-3.6); Magnesium 2.4 mg/dL (1.8-2.4); Potassium 3.3 mmol/L (3.5-5.1); Protein, Total 6.8 g/dL (6.4-8.2)
[2018-05-25] MEDS ORDERED: NA CHLORIDE 0.9% 1,000 ML ONE (02:24)
[2018-05-25] MEDS ORDERED: ENOXAPARIN 100 MG/ML SYR SQ ONE (02:24)
--- NOTE | 2018-05-25 02:34 | EDPHYS ---
Physician Documentation [facility] Name: Wendy Ziegler Age: 63 yrs Sex: Female : 1955 Arrival Date: 05/25/2018 Time: 00:42 Bed 4 Private MD: Wellington Beal ED Physician Indra Wolfe HPI: 05/25 01:05 This 63 yrs old Female presents to ER via Wheelchair with complaints of Chest cp Pain, Vomiting. 01:05 The patient or guardian reports chest pain that is located primarily in the anterior cp chest wall. Onset: 4 day(s) ago. The pain does not radiate. 01:05 Associated signs and symptoms: Pertinent positives: cough, nausea, vomiting, Pertinent cp negatives: abdominal pain, shortness of breath, syncope. 01:05 The chest pain is described as a pressure. Duration: The patient or guardian reports cp multiple episodes, that wax and wane. Historical: - Allergies: 01:23 Remicade; fc 01:23 victoza; fc 01:23 Codeine; fc 01:23 Bactrim; fc - Home Meds: 01:23 aspirin 81 mg Oral chew 1 tab once daily [Active]; allopurinol 100 mg Oral tab 1 tab fc once daily [Active]; amlodipine 5 mg oral tab 1 tab once daily [Active]; calcitriol 0.25 mcg Oral cap 1 cap once daily [Active]; carvedilol oral 1 tab 2 times per day [Active]; Cymbalta 60 mg oral cpDR 1 cap once daily [Active]; Claritin 10 mg Oral tab 1 tab once daily [Active]; Folbee 2.5-25-1 mg Oral tab 1 tab once daily [Active]; Fish Oil oral oral daily [Active]; fluticasone 50 mcg/actuation nasal spsn 2 sprays 2 times per day [Active]; Lasix 20 mg Oral tab 1 tab 2 times per day [Active]; hydroxychloroquine 200 mg oral tab 1 tab 2 times per day [Active]; hydralazine 100 mg Oral tab 1 tab 3 times per day [Active]; Lantus 100 unit/mL Sub-Q soln 20 unit nightly [Active]; leflunomide 20 mg Oral tab 1 tab once daily [Active]; Humalog 100 unit/mL Sub-Q soln 5 unit before meals [Active]; Orencia 125 mg/mL subcutaneous syrg 1000 unit monthly [Active]; Pepcid 20 mg Oral tab 1 tab once daily [Active]; potassium chloride 20 mEq Oral TbTQ 1 tab 2 times per day [Active]; pravastatin 10 mg Oral tab 1 tab once daily [Active]; pravastatin 40 mg oral tab 1 tab nightly [Active]; sodium bicarbonate 650 mg Oral tab 2 tab three times a day [Active]; Vitamin C 1,000 mg Oral tab daily [Active]; Vitamin D Oral 400 unit twice a day [Active]; ipratropium bromide 0.02 % inhalation soln as needed [Active]; - PMHx: 01:23 Pneumonia; Rheumatoid Arthritis; Hypertension; Hyperlipidemia; Diabetes - IDDM; COPD; fc - PSHx: 01: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 - Social history:: Smoking status: Patient/guardian denies using tobacco. - Ebola Screening: : Patient negative for fever greater than or equal to 101.5 degrees Fahrenheit, and additional compatible Ebola Virus Disease symptoms Patient denies exposure to infectious person Patient denies travel to an Ebola-affected area in the 21 days before illness onset. ROS: 01:10 Constitutional: Negative for body aches, chills, fever, poor PO intake. cp 01:10 Eyes: Negative for injury, pain, redness, and discharge. cp 01:10 ENT: Negative for drainage from ear(s), ear pain, sore throat, difficulty swallowing, difficulty handling secretions. 01:10 Cardiovascular: Positive for chest pain, Negative for edema, palpitations. 01:10 Respiratory: Positive for cough, Negative for shortness of breath, wheezing. 01:10 Abdomen/GI: Positive for nausea and vomiting, Negative for abdominal pain, diarrhea, constipation, hematemesis, black/tarry stool, rectal bleeding. 01:10 Back: Positive for pain at rest. 01:10 Skin: Negative for cellulitis, rash. 01:10 Neuro: Negative for altered mental status, headache, syncope, near syncope, weakness. 01:10 All other systems are negative. Exam: 01:07 ECG was reviewed by the Attending Physician. cp 01:15 Constitutional: The patient appears in no acute distress, alert, awake, cp non-diaphoretic, non-toxic, well developed, well nourished, obese, uncomfortable. 01:15 Head/Face: Normocephalic, atraumatic. cp 01:15 Eyes: Periorbital structures: appear normal, Pupils: equal, round, and reactive to cp light and accomodation, Extraocular movements: intact throughout, Conjunctiva: normal, no exudate, no injection, Sclera: no appreciated abnormality, Lids and lashes: appear normal, bilaterally. 01:15 ENT: External ear(s): are unremarkable, Nose: is normal, Mouth: Lips: moist, Oral mucosa: pink and intact, moist, Posterior pharynx: is normal, airway is patent, no erythema, no exudate, Voice: is normal. 01:15 Neck: ROM/movement: is normal, is supple, without pain, no range of motions cp limitations, no nuchal rigidity. 01:15 Chest/axilla: Inspection: normal, Palpation: is normal, no crepitus, no tenderness. 01:15 Cardiovascular: Rate: normal, Rhythm: regular, Pulses: Pulses are 2+ in right radial artery and left radial artery. Heart sounds: murmur, grade 3 over 6, rub, not appreciated, gallop, not appreciated, Edema: is not appreciated, JVD: is not appreciated. 01:15 Respiratory: the patient does not display signs of respiratory distress, Respirations: normal, no use of accessory muscles, no retractions, no splinting, no tachypnea, labored breathing, is not present, Breath sounds: are clear throughout, no decreased breath sounds, no stridor, no wheezing. 01:15 Abdomen/GI: Inspection: abdomen appears normal, Bowel sounds: active, all quadrants, Palpation: abdomen is soft and non-tender, in all quadrants. 01:15 Back: pain, that is mild, ROM is normal. 01:15 Musculoskeletal/extremity: Exam is negative for calf tenderness, decreased range of motion, edema, injury. 01:15 Skin: cellulitis, is not appreciated, no rash present. 01:15 Neuro: Orientation: to person, place \T\ time. Mentation: lucid, able to follow commands, Cerebellar function: is grossly normal, Motor: moves all fours, strength is normal, Sensation: no obvious gross deficits. Vital Signs: 00:45 BP 161 / 82; Pulse 72; Resp 18; Temp 98.6(O); Pulse Ox 96% on R/A; Weight 115.67 kg fc (R); Height 5 ft. 6 in. (167.64 cm) (R); Pain 5/10; 01:15 BP 142 / 74; Pulse 65; Resp 18; Pulse Ox 96% on R/A; fc 01:42 BP 145 / 79 LA Sitting (auto/lg); Pulse 69; Resp 18; Pulse Ox 95% ; fc 01:43 BP 146 / 76 RA Sitting (auto/lg); Pulse 65; Resp 18; Pulse Ox 95% on R/A; fc 02:14 BP 146 / 73; Pulse 66; Resp 18; Pulse Ox 97% on R/A; fc 03:03 BP 140 / 78; Pulse 70; Resp 18; Temp 98.2(O); Pulse Ox 96% on R/A; Pain 2/10; fc 00:45 Body Mass Index 41.16 (115.67 kg, 167.64 cm) MDM: 00:58 Patient medically screened. cp 02:35 The patient was given aspirin in the Emergency Department. cp 02:35 Data reviewed: vital signs, nurses notes, lab test result(s), EKG, radiologic studies, cp plain films. 05/25 00:55 Order name: Basic Metabolic Panel; Complete Time: 02:10 cp 05/25 02:10 Interpretation: Normal except: K 3.3; CL 108; GLUC 133; BUN 40; CRE 3.60; GFR 13. cp 05/25 00:55 Order name: CBC with Diff; Complete Time: 02:10 cp 05/25 02:10 Interpretation: Normal except: RBC 3.14; HGB 10.6; HCT 31.6; MCV 100.5; RDW 15.3; MN% cp 14.1; EOSINOPHIL % 13.7. 05/25 00:55 Order name: Ckmb; Complete Time: 02:10 cp 05/25 00:55 Order name: CPK; Complete Time: 02:10 cp 05/25 00:55 Order name: LFT's; Complete Time: 02:10 cp 05/25 02:11 Interpretation: Normal except: ALB 2.9; GLOB 3.9; A/G 0.7. cp 05/25 00:55 Order name: Magnesium; Complete Time: 02:10 05/25 00:55 Order name: NT PRO-BNP; Complete Time: 02:10 05/25 00:55 Order name: PT-INR; Complete Time: 02:10 05/25 00:55 Order name: Ptt, Activated; Complete Time: 02:10 05/25 00:55 Order name: Troponin (emerg Dept Use Only); Complete Time: 02:10 05/25 02:11 Interpretation: TROPED < 0.02; Reviewed. 05/25 01:11 Order name: Lipase 05/25 01:18 Order name: Lipase; Complete Time: 02:10 [facility] 05/25 02:11 Interpretation: LIP 71; Reviewed. 05/25 01:50 Order name: Lipid Profile [facility] 05/25 00:55 Order name: XRAY Chest (1 view) 05/25 00:55 Order name: EKG; Complete Time: 00:56 05/25 01:50 Order name: Lipid Profile [facility] 05/25 01:50 Order name: Troponin I [facility] 05/25 01:50 Order name: Troponin I [facility] 05/25 01:50 Order name: Troponin I [facility] 05/25 01:50 Order name: Echo with Doppler [facility] 05/25 03:04 Order name: Urine Dipstick--Ancillary (enter results) [facility] 05/25 03:35 Order name: Urine Dipstick-Ancillary [facility] 05/25 00:55 Order name: Urine Test (obtain specimen); Complete Time: 03:02 05/25 00:55 Order name: Cardiac monitoring; Complete Time: 01:51 05/25 00:55 Order name: EKG - Nurse/Tech; Complete Time: 01:07 05/25 00:55 Order name: IV Saline Lock; Complete Time: 01:07 05/25 00:55 Order name: Labs collected and sent; Complete Time: 01:08 05/25 00:55 Order name: O2 Per Protocol; Complete Time: 01:08 05/25 00:55 Order name: O2 Sat Monitoring; Complete Time: 01:08 05/25 00:55 Order name: Urine Dipstick-Ancillary (obtain specimen); Complete Time: 03:02 05/25 01:03 Order name: Blood Pressure Recheck: bilateral upper extremities; Complete Time: 01:51 cp 05/25 01:50 Order name: CONS Physician Consult EDMS 05/25 01:50 Order name: Heart Healthy EDMS EC:07 Rate is 68 beats/min. Rhythm is regular. WA interval is normal. QRS interval is cp prolonged at 162 msec. QT interval is prolonged at 516 msec. T waves are Inverted in lead aVL. Interpreted by me. Reviewed by me. Administered Medications: Discontinued: NS 0.9% 500 ml IV at bolus once 01:40 Drug: Aspirin Chewable Tablet 324 mg Route: PO; fc 02:14 Follow up: Response: No adverse reaction; No change in condition fc 01:40 Drug: Pepcid 20 mg Route: IVP; Site: right forearm; fc 02:14 Follow up: Response: No adverse reaction; Nausea is decreased fc 01:40 Drug: Zofran 4 mg Route: IVP; Site: right forearm; fc 02:14 Follow up: Response: No adverse reaction; Nausea is decreased fc 02:10 Drug: morphine 2 mg Route: IVP; Site: right forearm; fc 03:01 Follow up: Response: No adverse reaction; Pain is decreased fc 02:26 Drug: NS 0.9% 500 ml Route: IV; Rate: bolus; Site: left forearm; fc 03:02 Follow up: Response: No adverse reaction; No change in condition; IV Status: Order to fc discontinue infusion 03:48 Follow up: Response: No adverse reaction; No change in condition; IV Status: Order to fc discontinue infusion 02:26 Drug: Lovenox 1 mg/kg Route: Sub-Q; Site: right lower abdomen; fc 03:02 Follow up: Response: No adverse reaction; No change in condition fc 02:30 Drug: NS 0.9% 1000 ml Route: IV; Rate: 75 ml/hr; Site: right forearm; fc 03:23 Follow up: Response: No adverse reaction; No change in condition; IV Status: Infusion fc continued upon admission; IV Intake: 100ml Point of Care Testing: Blood Glucose: :43 Blood Glucose: 137 mg/dL; aa1 Ranges: Critical Glucose Levels:Adult <50 mg/dl or >400 mg/dl <40 mg/dl or >180 mg/dl Disposition: 12:34 Co-signature as Attending Physician, Indra Wolfe MD I agree with the assessment and wa plan of care. Disposition: 05/25/18 02:33 Hospitalization ordered by Eduardo Rasheed for Observation. Preliminary diagnosis are Chest pain, unspecified, Nausea and vomiting, Chronic kidney disease (CKD). - Bed requested for Telemetry/MedSurg (observation). - Status is Observation. fc - Condition is Stable. - Problem is new. - Symptoms have improved. UTI on Admission? No Signatures: Dispatcher [employer] [facility] Madonna Hoffmann RN RN Josee Molina RN RN Sundar De La Cruz PA PA timothy Wolfe, MD MD dana Burrell Corrections: (The following items were deleted from the chart) 01:11 Lipase ordered. [facility] ED[facility] 02:40 02:33 Hospitalization Ordered by Eduardo Rasheed MD for Observation. Preliminary cp diagnosis is Chest pain, unspecified. Bed requested for Telemetry/MedSurg (observation). Status is Observation. Condition is Stable. Problem is new. Symptoms have improved. UTI on Admission? No. cp 02:40 02:40 05/25/2018 02:33 Hospitalization Ordered by Eduardo Rasheed MD for Observation. mw Preliminary diagnosis is Chest pain, unspecified; Nausea and vomiting; Chronic kidney disease (CKD). Bed requested for Telemetry/MedSurg (observation). Status is Observation. Condition is Stable. Problem is new. Symptoms have improved. UTI on Admission? No. cp 03:32 03:31 This 63 yrs old Female presents to ER via Wheelchair with complaints of cp Chest Pain, Vomiting. cp 03:49 02:40 05/25/2018 02:33 Hospitalization Ordered by Eduardo Rasheed MD for Observation. fc Preliminary diagnosis is Chest pain, unspecified. Bed requested for Telemetry/MedSurg (observation). Status is Observation. Condition is Stable. Problem is new. Symptoms have improved. UTI on Admission? No. mw
--- NOTE | 2018-05-25 02:34 | ER ---
Nurse's Notes [facility] Name: Wendy Ziegler Age: 63 yrs Sex: Female : 1955 Arrival Date: 05/25/2018 Time: 00:42 Bed 4 Private MD: Wellington Beal Diagnosis: Chest pain, unspecified;Nausea and vomiting;Chronic kidney disease (CKD) Presentation: 05/25 00:45 Presenting complaint: Patient states: that she started to have chest pain and cough on fc Monday. Was seen by Dr Massey on Mon. CXR done and was negative. Pain continued to get worse and she is now vomiting. Pain also radiates to her back. Transition of care: patient was not received from another setting of care. Onset of symptoms was May 20, 2018. Risk Assessment: Do you want to hurt yourself or someone else? Patient reports no desire to harm self or others. Initial Sepsis Screen: Does the patient meet any 2 criteria? No. Patient's initial sepsis screen is negative. Does the patient have a suspected source of infection? No. Patient's initial sepsis screen is negative. Care prior to arrival: None. 00:45 Method Of Arrival: Wheelchair fc 00:45 Acuity: SINDY 3 fc Triage Assessment: 01:07 General: Appears uncomfortable, obese, well developed, Behavior is calm, cooperative, fc appropriate for age. Pain: Complains of pain in chest Pain radiates to back Pain currently is 5 out of 10 on a pain scale. Quality of pain is described as aching, dull, sharp, Pain began 5 days ago Is intermittent. EENT: No deficits noted. Neuro: Level of Consciousness is awake, alert, obeys commands, Oriented to person, place, time, situation. Cardiovascular: Reports chest pain, fatigue, nausea, vomiting, Murmur present Capillary refill is > 3 seconds Pulses are all present. Edema is absent. Rhythm is regular Chest pain is described as vague, quality is sharp, dull is located in substernal area radiates back began 5 days ago episodes are intermittent. Respiratory: Reports cough that is Airway is patent Trachea midline Respiratory effort is even, unlabored, Respiratory pattern is regular, symmetrical, Breath sounds are clear bilaterally. Onset: The symptoms/episode began/occurred gradually, the patient has mild shortness of breath. GI: Abdomen is non-distended, obese, Pt is actively vomiting Bowel sounds present X 4 quads. Abd is soft and non tender X 4 quads. Reports nausea, vomiting. : No deficits noted. Derm: Skin is pink, warm \T\ dry. Musculoskeletal: Circulation, motion, and sensation intact. Capillary refill < 3 seconds, Range of motion: intact in all extremities. Historical: - Allergies: 01: Remicade; fc : victoza; : Codeine; : Bactrim; fc - Home Meds: 01:23 aspirin 81 mg Oral chew 1 tab once daily [Active]; allopurinol 100 mg Oral tab 1 tab fc once daily [Active]; amlodipine 5 mg oral tab 1 tab once daily [Active]; calcitriol 0.25 mcg Oral cap 1 cap once daily [Active]; carvedilol oral 1 tab 2 times per day [Active]; Cymbalta 60 mg oral cpDR 1 cap once daily [Active]; Claritin 10 mg Oral tab 1 tab once daily [Active]; Folbee 2.5-25-1 mg Oral tab 1 tab once daily [Active]; Fish Oil oral oral daily [Active]; fluticasone 50 mcg/actuation nasal spsn 2 sprays 2 times per day [Active]; Lasix 20 mg Oral tab 1 tab 2 times per day [Active]; hydroxychloroquine 200 mg oral tab 1 tab 2 times per day [Active]; hydralazine 100 mg Oral tab 1 tab 3 times per day [Active]; Lantus 100 unit/mL Sub-Q soln 20 unit nightly [Active]; leflunomide 20 mg Oral tab 1 tab once daily [Active]; Humalog 100 unit/mL Sub-Q soln 5 unit before meals [Active]; Orencia 125 mg/mL subcutaneous syrg 1000 unit monthly [Active]; Pepcid 20 mg Oral tab 1 tab once daily [Active]; potassium chloride 20 mEq Oral TbTQ 1 tab 2 times per day [Active]; pravastatin 10 mg Oral tab 1 tab once daily [Active]; pravastatin 40 mg oral tab 1 tab nightly [Active]; sodium bicarbonate 650 mg Oral tab 2 tab three times a day [Active]; Vitamin C 1,000 mg Oral tab daily [Active]; Vitamin D Oral 400 unit twice a day [Active]; ipratropium bromide 0.02 % inhalation soln as needed [Active]; - PMHx: 01:23 Pneumonia; Rheumatoid Arthritis; Hypertension; Hyperlipidemia; Diabetes - IDDM; COPD; fc - PSHx: 01: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 - Social history:: Smoking status: Patient/guardian denies using tobacco. - Ebola Screening: : Patient negative for fever greater than or equal to 101.5 degrees Fahrenheit, and additional compatible Ebola Virus Disease symptoms Patient denies exposure to infectious person Patient denies travel to an Ebola-affected area in the 21 days before illness onset. Screenin:45 Abuse screen: Denies threats or abuse. Nutritional screening: No deficits noted. fc Tuberculosis screening: No symptoms or risk factors identified. Fall Risk None identified. Assessment: 01:52 Reassessment: Patient and/or family updated on plan of care and expected duration. Pain fc level reassessed. Patient is alert, oriented x 3, equal unlabored respirations, skin warm/dry/pink. No change from triage assessment. Pain: Complains of pain in chest Pain radiates to back Quality of pain is described as aching, dull, Pain began 5 days ago Is intermittent. 02:12 Reassessment: No changes from previously documented assessment. Patient and/or family fc updated on plan of care and expected duration. Pain level reassessed. Patient is alert, oriented x 3, equal unlabored respirations, skin warm/dry/pink. Pt states that she is ready for pain medication. Discussed with Dorothy SANCHEZ and pt given Morphine 2 mg ivp. 03:03 Reassessment: No changes from previously documented assessment. Patient and/or family fc updated on plan of care and expected duration. Pain level reassessed. Patient is alert, oriented x 3, equal unlabored respirations, skin warm/dry/pink. Pt pending admission. Vital Signs: 00:45 BP 161 / 82; Pulse 72; Resp 18; Temp 98.6(O); Pulse Ox 96% on R/A; Weight 115.67 kg fc (R); Height 5 ft. 6 in. (167.64 cm) (R); Pain 5/10; 01:15 BP 142 / 74; Pulse 65; Resp 18; Pulse Ox 96% on R/A; fc 01:42 BP 145 / 79 LA Sitting (auto/lg); Pulse 69; Resp 18; Pulse Ox 95% ; fc 01:43 BP 146 / 76 RA Sitting (auto/lg); Pulse 65; Resp 18; Pulse Ox 95% on R/A; fc 02:14 BP 146 / 73; Pulse 66; Resp 18; Pulse Ox 97% on R/A; fc 03:03 BP 140 / 78; Pulse 70; Resp 18; Temp 98.2(O); Pulse Ox 96% on R/A; Pain 2/10; fc 00:45 Body Mass Index 41.16 (115.67 kg, 167.64 cm) fc ED Course: 00:42 Patient arrived in ED. es 00:42 Wellington Beal MD is Private Physician. es 00:45 Arm band placed on Patient placed in an exam room, on a stretcher. fc 00:45 Patient has correct armband on for positive identification. Placed in gown. Bed in low fc position. Call light in reach. manager monitoring on. Pulse ox on. NIBP on. 00:45 Patient maintains SpO2 saturation greater than 95% on room air. fc 00:55 Sundar De La Cruz PA is PHCP. cp 00:55 Indra Wolfe MD is Attending Physician. cp 00:55 Initial lab(s) drawn, by ED staff, sent to lab. Inserted saline lock: 20 gauge in right fc forearm, using aseptic technique. ,using aseptic technique. per Jeni PITTS. 01:02 EKG done, by ED staff, reviewed by Sundar SANCHEZ. fc 01:05 Triage completed. fc 01:26 X-ray completed. Portable x-ray completed in exam room. Patient tolerated procedure kw well. 01:27 XRAY Chest (1 view) In Process Unspecified. EDMS 01:54 No provider procedures requiring assistance completed. fc 02:33 Eduardo Rasheed MD is Hospitalizing Provider. cp 03:04 Patient admitted, IV remains in place. fc Administered Medications: Discontinued: NS 0.9% 500 ml IV at bolus once 01:40 Drug: Aspirin Chewable Tablet 324 mg Route: PO; fc 02:14 Follow up: Response: No adverse reaction; No change in condition fc 01:40 Drug: Pepcid 20 mg Route: IVP; Site: right forearm; fc 02:14 Follow up: Response: No adverse reaction; Nausea is decreased fc 01:40 Drug: Zofran 4 mg Route: IVP; Site: right forearm; fc 02:14 Follow up: Response: No adverse reaction; Nausea is decreased fc 02:10 Drug: morphine 2 mg Route: IVP; Site: right forearm; fc 03:01 Follow up: Response: No adverse reaction; Pain is decreased fc 02:26 Drug: NS 0.9% 500 ml Route: IV; Rate: bolus; Site: left forearm; fc 03:02 Follow up: Response: No adverse reaction; No change in condition; IV Status: Order to fc discontinue infusion 03:48 Follow up: Response: No adverse reaction; No change in condition; IV Status: Order to fc discontinue infusion 02:26 Drug: Lovenox 1 mg/kg Route: Sub-Q; Site: right lower abdomen; fc 03:02 Follow up: Response: No adverse reaction; No change in condition fc 02:30 Drug: NS 0.9% 1000 ml Route: IV; Rate: 75 ml/hr; Site: right forearm; fc 03:23 Follow up: Response: No adverse reaction; No change in condition; IV Status: Infusion fc continued upon admission; IV Intake: 100ml Point of Care Testing: Blood Glucose: 01:43 Blood Glucose: 137 mg/dL; aa1 Ranges: Intake: 03:23 IV: 100ml; Total: 100ml. fc Outcome: 02:33 Decision to Hospitalize by Provider. cp 03:03 Condition: good fc 03:03 Discharge instructions given to patient, significant other, Instructed on the need for admit, Demonstrated understanding of instructions. 03:19 Admitted to Tele accompanied by stephan, via stretcher, room 231, with chart, Report fc called to Priti PITTS 03:49 Patient left the ED. fc Signatures: Dispatcher [employer] Jeni Rico RN RN aa1 Mary Starks Felicia, RN RN Juliana Barnes Corey, PA PA cp
[2018-05-25 03:35] LABS: Urine Blood NEGATIVE (NEG); Urine Glucose NEGATIVE (NEG); Urine Protein NEGATIVE (NEG); Urine Specific Gravity 1.025 (1.005-1.030)
[2018-05-25 03:54] VITALS: BMI 40.8
[2018-05-25 05:30] VITALS: O2SAT 92
[2018-05-25] MEDS ORDERED: NA CHLORIDE 0.9% 1,000 ML IV SCH (06:00)
--- NOTE | 2018-05-25 08:42 | RAD REPORT ---
EXAM DESCRIPTION: RAD - Chest Single View - 05/25/2018 1:27 am CLINICAL HISTORY: CHEST PAIN Chest pain. COMPARISON: Chest Pa And Lat (2 Views) dated 05/23/2018; Chest Pa And Lat (2 Views) dated 03/01/2018; C hest Pa And Lat (2 Views) dated 11/13/2017; Chest Pa And Lat (2 Views) dated 10/30/2017; Thorax Wo Con d ated 11/13/2017 FINDINGS: Portable technique limits examination quality. The lungs are grossly clear. The heart is mildly prominent in size. No displaced fractures. IMPRESSION: No acute intrathoracic process suspected.
--- NOTE | 2018-05-25 08:46 | P.HP ---
Certification for Inpatient Patient admitted to: Observation With expected LOS: <2 Midnights Patient will require the following post-hospital care: None Practitioner: I am a practitioner with admitting privileges, knowledge of patient current condition, hospital course, and medical plan of care. Services: Services provided to patient in accordance with Admission requirements found in Title 42 Section 412.3 of the Code of Federal Regulations Patient History Date of Service: 05/25/18 Reason for admission: Chest pain rule out acute coronary syndrome History of Present Illness: Patient is a 63-year-old female who was admitted to the hospital with chest pain. Patient pain was mainly in the sternal region. In the emergency room patient was given nitro and aspirin. Her pain slowly subsided. Patient has had a stress test earlier this year which was normal. Initial EKG and troponins were unremarkable. Patient is clinically feeling better with no chest pain. Will get Cardiology to see the patient to see if she needs further diagnostic studies or she can be managed as an outpatient. Allergies infliximab [From Remicade] Allergy (Intermediate, Verified 05/25/18 03:50) Itching/Hives/Rash sulfamethoxazole [From Bactrim] Allergy (Intermediate, Verified 05/25/18 03:50) Nausea/Vomiting trimethoprim [From Bactrim] Allergy (Intermediate, Verified 05/25/18 03:50) Nausea/Vomiting codeine Allergy (Verified 05/25/18 03:50) Nausea/Vomiting victoza Adverse Reaction (Uncoded 05/25/18 03:50) Anaphylaxis Home Medications: Abatacept [Orencia] 1,000 unit SQ SEECOM 05/25/18 Allopurinol [Zyloprim] 100 mg PO DAILY 05/25/18 Amlodipine [Norvasc] 5 mg PO DAILY 05/25/18 Ascorbic Acid [Vitamin C] 1,000 mg PO DAILY 05/25/18 Aspirin Chewable [Aspirin Chewable*] 81 mg PO DAILY 05/25/18 Calcitriol [Rocaltrol] 0.25 mcg PO DAILY 05/25/18 Carvedilol [Coreg] 25 mg PO BID 05/25/18 Cholecalciferol (Vitamin D3) [Vitamin D 400 IU TAB*] 400 unit PO BID 05/25/18 Docosahexanoic AC/Epa [Fish Oil 1,000 MG*] 1 tab PO DAILY 05/25/18 Duloxetine [Cymbalta Dalayed Release Pellets] 60 mg PO DAILY 05/25/18 Famotidine [Pepcid] 20 mg PO DAILY 05/25/18 Folic Acid/Vit B Complex and C [Folbee Plus Tablet] 5 mg PO DAILY 05/25/18 Furosemide [Lasix] 20 mg PO BID 05/25/18 Hydralazine [Apresoline*] 100 mg PO TID 05/25/18 Hydroxychloroquine [Plaquenil] 200 mg PO BID 05/25/18 Insulin Glargine Human [Lantus*] 20 units SQ BEDTIME 05/25/18 Insulin Lispro [Humalog*] 5 units SQ SEECOM 05/25/18 Leflunomide [Arava] 20 mg PO DAILY 05/25/18 Loratadine [Claritin] 10 mg PO DAILY 05/25/18 Potassium Chloride 20 meq PO BID 05/25/18 Pravastatin Sodium 10 mg PO DAILY 05/25/18 Pravastatin Sodium [Pravachol] 40 mg PO BEDTIME 05/25/18 Sodium Bicarbonate 1,300 mg PO TID 05/25/18 - Past Medical/Surgical History Has patient received pneumonia vaccine in the past: Yes Diabetic: No -: pneumonia -: rheumatoid arthritis -: hypertension -: hyperlipidemia -: copd -: spleenectomy -: knee surg -: back surg -: tens unit in back - Family History Father Family History: Reviewed- Non-Contributory - Social History Smoking Status: Never smoker Alcohol use: No CD- Drugs: No Caffeine use: Yes Place of Residence: Home Review of Systems 10-point ROS is otherwise unremarkable Physical Examination - Vital Signs Temperature: 96.8 F Blood Pressure: 171/84 Pulse: 72 Respirations: 20 Pulse Ox (%): 92 - Physical Exam General: Alert, In no apparent distress, Oriented x3 HEENT: Atraumatic, PERRLA, Mucous membr. moist/pink, EOMI, Sclerae nonicteric Neck: Supple, 2+ carotid pulse no bruit, No LAD, Without JVD or thyroid abnormality Respiratory: Clear to auscultation bilaterally, Normal air movement Cardiovascular: Regular rate/rhythm, Normal S1 S2, No murmurs Gastrointestinal: Normal bowel sounds, Soft and benign, Non-distended, No tenderness Musculoskeletal: No clubbing, No swelling, No tenderness Integumentary: No rashes Neurological: Normal gait, Normal speech, Normal strength at 5/5 x4 extr, Normal tone, Sensation intact, Cranial nerves 3-12 intact, Normal affect Lymphatics: No axilla or inguinal lymphadenopathy - Studies Laboratory Data (last 24 hrs) 05/25/18 01:20: PT 11.9, INR 1.01, APTT 33.1 05/25/18 01:20: WBC 6.6, Hgb 10.6 L, Hct 31.6 L, Plt Count 329 05/25/18 01:20: Sodium 142, Potassium 3.3 L, BUN 40 H, Creatinine 3.60 H, Glucose 133 H, Magnesium 2.4, Total Bilirubin 0.4, AST 25, ALT 29, Alkaline Phosphatase 85, Lipase 71 L 05/25/18 01:11: Lipase Cancelled Assessment & Plan - Problems (Diagnosis) (1) Chest pain, rule out acute myocardial infarction Current Visit: Yes Status: Acute (2) Rheumatoid arthritis Current Visit: Yes Status: Acute (3) COPD (chronic obstructive pulmonary disease) Current Visit: Yes Status: Acute - Plan 1. Serial troponins and EKG 2. Cardiology consultation 3. Echocardiogram and further workup per Cardiology 4. Anti-platelet therapy, anti coagulation, beta-deyvi, statin, and O2 as needed 5. IV morphine for pain 6. Nitro p.r.n. 7. Resume home medications 8. GI and DVT prophylaxis Discharge Plan: Home Plan to discharge in: 24 Hours - Advance Directives Does patient have a Living Will: No Does patient have a Durable POA for Healthcare: No - Code Status/Comfort Care Code Status Assessed: Yes Code Status: Full Code Critical Care: No Time Spent Managing PTS Care (In Minutes): 50
[2018-05-25] MEDS ORDERED: AMLODIPINE 5 MG TAB PO SCH (09:00)
[2018-05-25] MEDS ORDERED: LORATADINE 10 MG TAB PO SCH (09:00)
[2018-05-25] MEDS ORDERED: LEFLUNOMIDE 20 MG PO SCH (09:00)
[2018-05-25] MEDS ORDERED: POTASSIUM CL SA 10 MEQ TAB PO SCH (09:00)
[2018-05-25] MEDS ORDERED: VITAMIN D 400 UNIT TAB PO SCH (09:00)
[2018-05-25] MEDS ORDERED: CALCITROL 0.25 MCG CAP PO SCH (09:00)
[2018-05-25] MEDS ORDERED: DOCOSAHEXANOIC AC/EPA 1000 MG PO SCH (09:00)
[2018-05-25] MEDS ORDERED: DULOXETINE 30 MG CAP PO SCH (09:00)
[2018-05-25] MEDS ORDERED: ASPIRIN EC 81 MG TAB PO SCH (09:00)
[2018-05-25] MEDS ORDERED: DULOXETINE 20 MG CAP PO SCH (09:00)
[2018-05-25] MEDS ORDERED: METOPROLOL TAR 50 MG TAB PO SCH (09:00)
[2018-05-25] MEDS ORDERED: HYDROXYCHLOROQUINE 200MG TAB PO SCH (09:00)
[2018-05-25] MEDS ORDERED: FAMOTIDINE 20 MG TAB PO SCH (09:00)
[2018-05-25] MEDS ORDERED: ALLOPURINOL 100 MG TAB PO SCH (09:00)
[2018-05-25] MEDS ORDERED: ASPIRIN 81 MG CHEWABLE TABLET PO SCH (09:00)
[2018-05-25] MEDS ORDERED: FOLBIC 1 TAB PO SCH (09:00)
[2018-05-25] MEDS ORDERED: ASCORBIC ACID 500 MG TABLET PO SCH (09:00)
[2018-05-25] MEDS ORDERED: CARVEDILOL 25 MG TAB PO SCH (09:00)
[2018-05-25] MEDS: SODIUM BICARB 325 MG TAB PO SCH ×2 (10:02→13:17)
[2018-05-25] MEDS: FUROSEMIDE 20 MG TABLET PO SCH (10:03)
[2018-05-25] MEDS: HYDRALAZINE HCL 25 MG TABLET PO SCH ×2 (10:03→13:17)
[2018-05-25] MEDS: ONDANSETRON 4 MG/2 ML VIAL IV PRN ×2 (10:16→15:16)
[2018-05-25 14:05] VITALS: BP 172/82; TEMP 97.7
[2018-05-25] MEDS ORDERED: INSULIN GLARGINE 100 UNITS/ML SQ SCH (21:00)
[2018-05-25] MEDS ORDERED: ATORVASTATIN 10 MG TAB PO SCH (21:00)
[2018-05-25] MEDS ORDERED: ENOXAPARIN 30 MG/0.3 ML SQ SCH (21:00)
--- NOTE | 2018-05-26 06:09 | EKG ---
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
--- NOTE | 2018-05-26 06:20 | CON ---
Date of Consultation: 05/25/[address] John's service on 05/25/2018. The patient was seen on 05/25/2018. Reason For Consultation: Chest pain. History Of Present Illness: Mrs. Ziegler is a 63-year-old woman who has a known history of chronic re nal insufficiency with a creatinine of 3.6. She is followed up with Dr. Breaux. She is not on hem odialysis. Also, has a history of hypertension. She came in with chest pain for approximately 5 day s' duration with cough. Chest pain is worse when she takes a deep breath. It radiates to the back. She sees Dr. Beal for family care. Denied PND, orthopnea, pedal edema, palpitations, or syncope. CPKs, MBs, troponin, and BNPs are all negative so far. Her EKG is unremarkable. Chest x-ray is neg ative. Past Medical History: As stated above. Allergies: NONE. Review of Systems: Negative. Social History: Negative. Family History: Negative for heart disease. Medications: Listed by Dr. John. Physical Examination: Vital Signs: Stable. She was afebrile. HEENT: Negative. Neck: Supple, with no bruit. Chest: Clear to auscultation and percussion. Cardiac: Examination revealed a regular rhythm and rate without any murmurs, gallops, or rubs. Abdomen: Benign. Extremities: Revealed no clubbing, cyanosis, or edema. Diagnostic Data: As stated above. Laboratory Data: Creatinine is 3.6. Impression And Plan: 1.Atypical chest pain, most likely pleuritic. 2.Hypertension. 3.Chronic renal insufficiency. Mrs. Ziegler apparently had a stress test earlier this year that was negative. I would not repeat a s tress test. An echocardiogram is pending to rule out any wall motion abnormalities or pericardial ef fusion. I would avoid doing a heart catheterization on Mrs. Ziegler unless it is absolutely necessary . I think a heart catheterization will probably push her kidney function into failure. She understa nds that issue. We will see what her echocardiogram shows. Otherwise, she can go home whenever it i s okay with Dr. John. NB/MODL Voice ID: [id number] Report ID: [id number]
--- NOTE | 2018-05-29 09:40 | ECHO ---
HEIGHT: 5 ft 6 in WEIGHT: 252 lb 12.8 oz DATE OF STUDY: 05/25/[address]: Eduardo Rasheed MD 2-DIMENSIONAL: YES M.MODE: YES DOPPLER: YES COLOR FLOW: YES TDS: YES PORTABLE: DEFINITY: BUBBLE STUDY: DIAGNOSIS: CONGESTIVE HEART FAILURE CARDIAC HISTORY: CATHERIZATION: NO SURGERY: NO PROSTHETIC VALVE: NO PACEMAKER: NO MEASUREMENTS (cm) DIASTOLIC (NORMALS) SYSTOLIC (NORMALS) IVSd 1.1 (0.6-1.2) LA Diam 3.4 (1.9-4.0) LVEF 56% LVIDd 5.2 (3.5-5.7) LVIDs 3.7 (2.0-3.5) %FS 30% LVPWd 1.2 (0.6-1.2) Ao Diam 2.7 (2.0-3.7) 2 DIMENSIONAL ASSESSMENT: RIGHT ATRIUM: NORMAL LEFT ATRIUM: NORMAL RIGHT VENTRICLE: NORMAL LEFT VENTRICLE: NORMAL TRICUSPID VALVE: NORMAL MITRAL VALVE: NORMAL PULMONIC VALVE: NORMAL AORTIC VALVE: NORMAL PERICARDIAL EFFUSION: NONE AORTIC ROOT: NORMAL LEFT VENTRICULAR WALL MOTION: NORMAL DOPPLER/COLOR FLOW: MILD TRICUSPID REGURGITATION. COMMENTS: MILD TRICUSPID REGURGITATION. NORMAL RIGHT VENTRICULAR SYSTOLIC PRESSURE. NORMAL LEFT VENTRICULAR SIZE AND FUNCTION. TECHNICALLY DIFFICULT STUDY. NO WALL MOTION ABNORMALITY. TECHNOLOGIST: ADEEL MORAN
== END 2018-05-25 17:47 | disposition home or self-care (01) ==
LOC: ER 00:41 → ERHOLD 01:47 → 2ND 02:45
PROVIDERS: ADMIT Hospitalist; ATTEND Family Medicine
DX: R07.89 Other chest pain (principal); M06.9 Rheumatoid arthritis, unspecified; E78.5 Hyperlipidemia, unspecified; J44.9 Chronic obstructive pulmonary disease, unspecified; I12.9 Hypertensive chronic kidney disease with stage 1 through stage 4 chronic kidney disease, or unspecified chronic kidney disease; N18.9 Chronic kidney disease, unspecified
CPT/HCPCS: 36415; 71045; 80048; 80061; 80076; 81003; 82550; 82553; 82962; 83690; 83735; 83880; 84484; 85025; 85610; 85730; 93005; 93306; 96361; 96372; 96374; 96375; 99285; G0378; J1650; J2405; J7030

== ENCOUNTER 2018-05-27 16:31 | Emergency (ER) | payer BC ==
--- OUTSIDE RECORDS SUMMARY | 2018-05-27 16:33 | XMS REPORT | Clinical Summary ---
:1955 Author Organization [facility] Address [address] [place] [address] Phone Care Team Providers Name Role Phone [...] mcg/actuation inhaler 2 (two) times daily. omega 1-tpc-hhk-fish Take 1,600 mg by Active oil (FISH [...] with long-term 2016 current use of insulin ([facility]) CKD (chronic kidney disease) stage 4, GFR 15-29 ml/min ([facility]) 09/20/2017 Hypoxemia 09/20/2017 Pneumonia of both lungs due to infectious organism 09/19/2017 Encounters Date Type Specialty Care Team Description 09/20/2017 Orders Only General Internal Medicine 09/19/2017 - Hospital General Internal Frankie Raman Pneumonia of right 09/28/2017 Encounter Medicine MD Zbigniew lower lobe due to Eduardo Enrique infectious organism MD Taty ([facility]);Hypoxemia;LBBB Jan Harris MD (left bundle branch block);Chest pain, unspecified type;Pericardial effusion;Acute diastolic heart failure ([facility]);Acute renal failure superimposed on stage 3 chronic kidney disease, unspecified acute renal failure type ([facility]);Uncontrolled type 2 diabetes mellitus with complication, with long-term current use of insulin ([facility]);Pleural effusion after 05/26/2017 Family History Medical History Relation Name Comments [...] Taken Blood Pressure 118/58 09/28/2017 3:44 PM INSTRUCTOR OF NURSING Pulse 88 09/28/2017 3:44 PM INSTRUCTOR OF NURSING Temperature 36.2 C (97.2 F) 09/28/2017 3:44 PM INSTRUCTOR OF NURSING Respiratory Rate 18 09/28/2017 3:44 PM INSTRUCTOR OF NURSING Oxygen Saturation 94% 09/28/2017 3:44 PM INSTRUCTOR OF NURSING Inhaled Oxygen Concentration - - Weight 123 kg (271 lb 4 oz) 09/27/2017 6:00 AM INSTRUCTOR OF NURSING Height 168 cm (5' 6.14") 09/19/2017 8:44 PM INSTRUCTOR OF NURSING Body Mass Index 43.59 09/27/2017 6:00 AM INSTRUCTOR OF NURSING Plan of Treatment Not on file Results EKG-SCANNED (09/29/2017 1:53 PM)RHYTHM STRIP - SCAN (09/29/2017 1:53 PM) ECHOCARDIOGRAM REPORT - SCAN (09/28/2017 1:50 PM)Only the most recent of3 resultswithin the time period is included.POC-Glucose meter (09/28/2017 11:52 AM )Only the most recent of37 resultswithin the time period is included. Component Value Ref Range POC-Glucose Meter 181 (H)Comment: TESTED AT [address] 70 - 110 mg/[place] [address] Specimen Performing Laboratory Blood [address] [address] Karius (Attention: Tameka Luna, Micro Lab) (09/28/2017 6:09 AM) Component Value Ref Range Scan Result Specimen Performing Laboratory Blood - Vein [facility] [address] [place] [address] Magnesium (09/28/2017 6:09 AM)Only the most recent of9 resultswithin the time period is included. Component Value Ref Range Magnesium 1.7 1.6 - 2.6 mg/dL Specimen Performing Laboratory Blood [address] [address] Basic Metabolic Panel (09/28/2017 6:09 AM)Only the [...] FOR DIALYSIS PATIENTS. Specimen Performing Laboratory Blood [address] [address] Body fluid culture + gram stain (09/27/2017 7:36 PM) Component Value Ref Range Result No growth Gram Stain Result No White blood cells seen Gram Stain Result No organisms seen Specimen Performing Laboratory Body Fluid - Pleural, Right [address] [address] Body fluid cell count with differential (09/27/2017 7:36 PM) Component Value Ref Range Appearance Bloody (A) Clear Color Pita (A) Colorless, Straw RBCs [address] (H) <=1 /cu mm Adjusted WBC Count 3032 (H) <=5 /cu mm Lining Cells 121 (H) <=1 /cu mm % Segs 32 % % Lymphs 6 % % Monos 60 % % Eos 2 % % Baso 0 % Container Body Fluid EDTA Tube Specimen Performing Laboratory Body Fluid - Pleural, [address] [address] Protein, body fluid (09/27/2017 7:36 PM) Component Value Ref Range Protein, Fluid 3.6 Light's criteria identifies effusions if one or more are present: Pleural to serum protein ratio of more than 0.5; Pleural to Serum LDH of more than 0.6; Pleural LDH of more than two third of upper serum reference limit g/dL Specimen Performing Laboratory Body Fluid - Pleural, [address] [address] Narrative Absence of reference range indicates that [...] Specimen Performing Laboratory Body Fluid - Pleural, [address] [address] Narrative Absence of reference range indicates that normals have not been defined. Assay performance has not been validated for this type of specimen. Limited 2D Echocardiogram (09/27/2017 6:59 PM) Component Value Ref Range Ejection Fraction Specimen Performing Laboratory [facility] ECHO HEARTLAB MK[facility]ON [facility] Narrative Transthoracic Echocardiography Report (TTE) Demographics Patient Name Ann ZIEGLER of Study 09/27/2017 [id number] GenderFemale Visit Number [id number] Race Unknown [id number] Number 926 Number Date of Birth1955 Referring Physician Anastacio Rutledge MD Age62 year(s) Sustainability Engineer David Deal [facility] AnalystLjen Tarango,Interpreting Zbigniew Fortune MD [facility] Physician Procedure Type of Study TTE [...] External Ris In - 09/28/2017 1:03 PM INSTRUCTOR OF NURSING Transthoracic Echocardiography Report (TTE) Demographics Patient Name MIKE ZIEGLER Date of Study 09/27/2017 Gender Female Visit Number [id number] Race Unknown Room Number 926 Number Date of 1955 Referring Physician Anastacio Rutledge MD Age 62 year(s) Sustainability Engineer David Deal [facility] Scaler Aure Tarango, Interpreting Zbigniew Fortune MD [facility] Physician Procedure Type of Study TTE [...] manner.After the area is anesthetized, a 4 Sami catheter is advanced into the pleural space. [...] MD Report Verified Date/Time:09/27/2017 17:19:37 Reading Location: [address] Ultrasound Reading Room Procedure Note Interface, External Ris In - 09/27/2017 5:21 PM INSTRUCTOR OF NURSING FINAL REPORT Ultrasound guided right thoracentesis Clinical [...] After the area is anesthetized, a 4 Sami catheter is advanced into the pleural space. [...] Report Verified Date/Time: 09/27/2017 17:19:37 Reading Location: [facility] B1 [id number] Ultrasound Reading Room chest 1 [...] MD Report Verified Date/Time:09/27/2017 16:21:56 Reading Location: [facility] Mammo Reading Room Procedure Note Interface, External Ris In - 09/27/2017 4:24 PM INSTRUCTOR OF NURSING FINAL REPORT AP chest HISTORY: Thoracentesis COMPARISON: 09/27/2017 IMPRESSION: Intact skeleton. Cardiac silhouette mildly enlarged. Mild interstitial prominence, similar to previous. Right effusion appears decreased. No pneumothorax. Signed: Tari Lea MD Report Verified Date/Time: 09/27/2017 16:21:56 Reading Location: [facility] Mammo Reading Room Vitamin B12 and Folate (09/27/2017 4:54 AM) Component Value Ref Range Vitamin B12 >2000 (H) 213 - 816 pg/mL Folate 13.3 >=7.0 ng/mL Specimen Performing Laboratory Blood [facility] [address] [address] 2D Echo W/Doppler(CW/PW/Color) (09/26/2017 11:38 AM) Component Value Ref Range Ejection Fraction Specimen Performing Laboratory [facility] ECHO HEART[facility] Narrative Transthoracic Echocardiography Report (TTE) Demographics Patient NameACOSTA, MIKE Date of Study2017 Female Visit [id number] Unknown Room Number 926 Number Date of 1955Referring Physicianfrankie Rutledge MD Age 62 year(s)SonographerOscar Bridget RUST Scaler Aure Tarango, Interpreting Trevor Tristan MD RDCSPhysician Procedure Type of Study TTE procedure:2DECHO W DOPPLER(CW/PW/COLOR) (ELADIO) Indications:Suspected Pericardial conditions. Clinical History ASTHMA, COPD, OBESITY, LBBB, CAD, A.FIB. HTN, CHF, STROKE Contrast Medium: Definity. Amount - 2 ml Height: 66 inches Weight: 120.66 kg (266.01 lbs) BSA: 2.26 m^2 BMI: 42.93 kg/m^2 HR: 96 bpm BP: 146/65 mmHg Summary A suauk-be-nevgvwyd pericardial effusion is present . The pericardial effusion is circumferential . The pericardial effusion measures 2.8 cm by the right atrium in the subcostal view. NO signs of tamponacde LV endocardium is adequately visualized with IV ultrasound enhancing agent. The left ventricle is chamber size (by vol index) is mildly enlarged (female - LVED 62-70ml/m2). Zbvy-tm-zzajtuxq concentric LV hypertrophy. All of the LV [...] is mildly enlarged (female - LVED 62-70ml/m2). Vodh-wj-oaqzydez concentric LV hypertrophy. All of the LV [...] of Valsalva diameter) is normal . PericardiumA cmcmk-gl-apppvkzd pericardial effusion is present . The pericardial [...] External Ris In - 09/26/2017 4:07 PM INSTRUCTOR OF NURSING Transthoracic Echocardiography Report (TTE) Demographics Patient Name MIKE ZIEGLER Date of Study 09/26/2017 Gender Female Visit Number [id number] Race Unknown Room Number 926 Number Date of 1955 Referring Physician frankie Rutledge MD Age 62 year(s) Sustainability Engineer JOSH Woody Scaler Aure Tarango, Interpreting Trevor Tristan MD [facility] Physician Procedure Type of Study TTE procedure:2DECHO W DOPPLER(CW/PW/COLOR) (ELADIO) Indications:Suspected Pericardial conditions. Clinical History ASTHMA, COPD, OBESITY, LBBB, CAD, A.FIB. HTN, CHF, STROKE Contrast Medium: Definity. Amount - 2 ml Height: 66 inches Weight: 120.66 kg (266.01 lbs) BSA: 2.26 m^2 BMI: 42.93 kg/m^2 HR: 96 bpm BP: 146/65 mmHg Summary A sbfjq-nb-wfsztuba pericardial effusion is present . The pericardial effusion is circumferential . The pericardial effusion measures 2.8 cm by the right atrium in the subcostal view. NO signs of tamponacde LV endocardium is adequately visualized with IV ultrasound enhancing agent. The left ventricle is chamber size (by vol index) is mildly enlarged (female - LVED 62-70ml/m2). Mimu-hp-ymmkfiuj concentric LV hypertrophy. All of the LV [...] is mildly enlarged (female - LVED 62-70ml/m2). Gafg-up-zsltjvje concentric LV hypertrophy. All of the LV [...] Valsalva diameter) is normal . Pericardium A cnobh-sr-yqkfktmq pericardial effusion is present . The pericardial [...] seconds Specimen Performing Laboratory Blood - Arm, [address] [address] Narrative RECOMMENDED COUMADIN/WARFARIN INR THERAPY RANGES STANDARD DOSE: 2.0 - 3.0 Includes: PROPHYLAXIS for venous thrombosis, systemic embolization; TREATMENT for venous thrombosis and/or pulmonary embolus. HIGH RISK: Target INR is 2.5-3.5 for patients with mechanical heart valves. Platelet count (09/26/2017 11:10 AM) Component Value Ref Range Platelets 501 (H) 150 - 450 K/CU MM Specimen Performing Laboratory Blood - Arm, [address] [address] Protein, total (09/26/2017 11:10 AM) Component Value Ref Range Protein, Total 6.1 6.0 - 8.3 gm/dL Specimen Performing Laboratory Blood - Arm, [address] [address] Lactate dehydrogenase (LDH) (09/26/2017 11:10 AM) Component Value Ref Range LDH 309 (H) 125 - 220 U/L Specimen Performing Laboratory Blood - Arm, [address] [address] XR chest 2 views (09/25/2017 6:37 PM) [...] MD Report Verified Date/Time:09/25/2017 19:38:01 Reading Location: [address] Reading Room Procedure Note Interface, External Ris In - 09/25/2017 7:40 PM INSTRUCTOR OF NURSING FINAL REPORT Examination: Two view Chest X-ray. [...] Report Verified Date/Time: 09/25/2017 19:38:01 Reading Location: [address] Reading Room Protein, random urine (09/24/2017 4:18 PM) Component Value Ref Range Protein, Urine 154 (H) 0 - 14 mg/dL Specimen Performing Laboratory Urine [address] [address] Creatinine, random urine (09/24/2017 4:18 PM)Only the most recent of2 resultswithin the time period is included. Component Value Ref Range Creatinine, Ur 88.8 mg/dL Specimen Performing Laboratory Urine [address] [address] Narrative Reference Range: No Normals NM myocardial perfusion PET (rest and stress) (09/24/2017 2:57 PM) Specimen Performing Laboratory [facility] Narrative FINAL REPORT PROCEDURE:Rest/Stress MYOCARDIAL PERFUSION PET with regadenoson\\XA9\\ CPT CODE:55713 INDICATION:Chest pain, hypokinesis on echo HISTORY:Cardiac risk [...] Extracardiac tracer distribution is normal.6. No previous [facility] study for comparison. NONINVASIVE RISK STRATIFICATION: The above findings are considered low risk based on the following criteria: 1)Normal or small myocardial perfusion defect at rest or with stress (JACC. 2012;59(9):857-27.) Signed: Selvin Braswell MD Report Verified Date/Time:09/24/2017 16:36:36 Procedure Note Interface, External Ris In - 09/24/2017 4:38 PM INSTRUCTOR OF NURSING FINAL REPORT PROCEDURE: Rest/Stress MYOCARDIAL PERFUSION PET with regadenoson\\XA9\\ CPT CODE: [id number] INDICATION: Chest pain, hypokinesis on echo HISTORY: [...] tracer distribution is normal. 6. No previous [facility] study for comparison. NONINVASIVE RISK STRATIFICATION: The above findings are considered low risk based on the following criteria: 1)Normal or small myocardial perfusion defect at rest or with stress (JAC. 2012;59(9):857-81.) Signed: Selvin Braswell MD Report Verified Date/Time: 09/24/2017 16:36:36 Treadmill tolerance(Non-Nuclear Treadmill) (09/24/2017 2:52 PM) Specimen Performing Laboratory [facility] Narrative Protocol Name Regadenoson Time In Exercise [...] 11:19:37 AM Confirmed by MD CABRERA JORGE ([id number]) on 09/28/2017 4:43:16 PM Procedure Note Interface, External Ris In - 09/28/2017 4:43 PM INSTRUCTOR OF NURSING Protocol Name Regadenoson Time In Exercise Phase [...] 16.6 ug/mL Specimen Performing Laboratory Blood [facility] [address] [address] Narrative Reference Range: No Normals US renal [...] MD Report Verified Date/Time:09/23/2017 22:13:52 Reading Location: [address] Ortho Consult Reading Room Procedure Note Interface, External Ris In - 09/23/2017 10:16 PM INSTRUCTOR OF NURSING FINAL REPORT U/S, RENAL, COMPLETE CLINICAL INDICATION: [...] Report Verified Date/Time: 09/23/2017 22:13:52 Reading Location: [facility] B1 [id number] Ortho Consult Reading Room Urinalysis w/Microscopic + Reflex to Culture (09/23/2017 12:14 PM) Component Value Ref Range Color, UA Yellow Clarity, UA Hazy Specific [place], UA 1.010 1.001 - 1.035 pH, UA [...] Performing Laboratory Urine - Urine, Clean Catch [address] [address] Sodium, random urine (09/23/2017 12:14 PM) Component Value Ref Range Sodium Urine 31 meq/L Specimen Performing Laboratory Urine - Urine, Clean Catch [address] [address] Narrative Reference Range: No Normals CBC with [...] - 1 % Specimen [place] [address] CBC with platelet count + automated diff (09/23/2017 5:37 AM)Only the most recent of4 resultswithin the time period is included. Specimen Performing Laboratory Blood Narrative The following orders were created for panel order CBC with platelet count + automated diff. Procedure Abnormality Status --------- ------ CBC with platelet count ...[[id number]]AbnormalFinal result Please view results for these tests on the individual orders. CMV PCR, quantitative (09/22/2017 4:44 AM) Component Value Ref Range CMV DNA Viral Load Negative or below the linear range of the assay (<375 copies/mL) Specimen Performing Laboratory Blood - Arm, [place] [address] Narrative Cytomegalovirus (CMV) infection can cause significant [...] and its performance characteristics determined by the [facility] Pathology Department, Section of Molecular Pathology. It [...] Specimen Performing Laboratory Blood - Arm, Right [employer] [facility] [employer] [address] [address] Narrative Performing Lab [facility] [address] [place] [phone] Matthew Wolff MD Mycoplasma pneumoniae antibody, IgG [...] Specimen Performing Laboratory Blood - Arm, Right [employer] [facility]STIC [facility] [employer] [address] [address] Narrative Performing Lab [facility] [employer] [address] [place] [phone] Matthew Wolff MD Bronchial culture + gram stain (09/21/2017 12:52 PM) Component Value Ref Range Result No growth Gram Stain Result <1+ WBCs Gram Stain Result No organisms seen Specimen Performing Laboratory BAL - Lung, Right Middle Lobe [facility] [address] [place] [address] SPIN/CONCENTRATION CHARGE (09/21/2017 12:49 PM) Component Value Ref Range Concentration charged Done Specimen Performing Laboratory Body Fluid - BAL [address] [address] AFB culture + smear (09/21/2017 12:49 PM) Component Value Ref Range Result No acid-fast bacilli isolated in 42 days AFB Smear No acid fast bacilli seen Specimen Performing Laboratory Body Fluid - BAL [address] [address] Fungus culture + smear (09/21/2017 12:49 PM) Component Value Ref Range Result No fungus isolated in 28 days Fungus Smear No fungi seen Specimen Performing Laboratory BAL - Lung, Right Middle Lobe [address] [address] Blood gas, arterial (09/21/2017 11:02 AM) Component [...] Performing Laboratory Blood, Arterial - Arm, Right [address] [address] Legionella antigen, urine (09/20/2017 3:30 PM) Component Value Ref Range Legionella Urine Antigen Negative - see commentComment: Negative for L. pneumophila serogroup 1 antigen, suggesting no recent or current infection with this serogroup. Legionellosis cannot be ruled out since other serogroups and species may cause disease. Specimen Performing Laboratory Urine - Urine, Sterile Collection [address] [address] 2D Echo W/O Doppler(No Doppler) (09/20/2017 1:08 PM) Component Value Ref Range Ejection Fraction Specimen Performing Laboratory [facility] ECHO HEARTLAB [facility]ON [facility] Narrative Transthoracic Echocardiography Report (TTE) Demographics Patient NameACOSTA, MIKE Date of Study2016 Female Visit [id number] Unknown Room Number 7215 Number Date of 1955Referring Physicianfrankie raman Age 62 year(s)SonographerRahel Marrero Scaler Aure Tarango, Interpreting Aleisha De Paz MD [...] Global LV systolic function normal . A gkmkq-jb-ujbmuoqo pericardial effusion is present . The pericardial [...] of Valsalva diameter) is normal . PericardiumA fsqgs-wk-ziaspwoe pericardial effusion is present . The pericardial [...] External Ris In - 09/20/2017 4:09 PM INSTRUCTOR OF NURSING Transthoracic Echocardiography Report (TTE) Demographics Patient Name MIKE ZIEGLER Date of Study 09/20/2017 Gender Female Visit Number [id number] Race Unknown Room Number 7215 Number Date of 1955 Referring Physician frankie raman Age 62 year(s) Sustainability Engineer Rahel Marrero Scaler Aure Tarango, Interpreting Aleisha De Paz MD [facility] Physician Procedure Type of Study TTE [...] Global LV systolic function normal . A rlkwu-zj-egzmwumq pericardial effusion is present . The pericardial [...] Valsalva diameter) is normal . Pericardium A oczgd-pb-hzvcmnpp pericardial effusion is present . The pericardial [...] (H) <0.05 ng/mL Specimen Performing Laboratory Blood [address] [address] Narrative SEPSIS RISK (ng/mL) Low:0.05-0.50 Intermediate: 0.51-2.00 High: >=2.01 Lactic acid, venous, whole blood (09/20/2017 8:04 AM) Component Value Ref Range Lactate, Venous 0.5 0.5 - 2.2 mmol/L Specimen Performing Laboratory Blood [address] [address] Narrative Effective 01/27/2016: Units/Reference Range Change New: 0.5-2.2 mmol/LPrevious: 5-20 mg/dL B-type Natriuretic Factor (BNP) (09/20/2017 8:04 AM) Component Value Ref Range BNP 22 0 - 100 pg/mL Specimen Performing Laboratory Blood [address] [address] Hemoglobin A1c (09/20/2017 8:04 AM) Component Value Ref Range Hemoglobin A1C 6.8 (H) 4.3 - 6.1 % Specimen Performing Laboratory Blood [address] [address] Strep pneumoniae antigen (09/20/2017 6:09 AM) Component Value Ref Range Strep pneumoniae Antigen Presumptive negative for Presumptive negative for pneumococcal pneumonia - see pneumococcal pneumonia - see comment comment, Presumptive negative for pneumococcal meningitis - see comment Specimen Performing Laboratory Urine - Urine, Unspecified Source [address] [address] Narrative Presumptive negative for pneumococcal pneumonia, suggesting [...] Poikilocytes 2+ moderate Specimen Performing Laboratory Blood [address] [address] Respiratory Panel [facility] (09/20/2017 3:01 AM) Component [...] Specimen Performing Laboratory Nasopharyngeal - Nasopharyngeal Swab [address] [address] Iron, TIBC, % sat. (without ferritin) (09/20/2017 3:01 AM) Component Value Ref Range Iron 27 (L) 40 - 160 ug/dL TIBC 186 (L) 250 - 450 ug/dL Iron % Saturation 15 (L) 20 - 55 % Specimen Performing Laboratory Blood [address] [address] Troponin I (09/20/2017 3:01 AM) Component Value Ref Range Troponin I <0.01 0.00 - 0.03 ng/mL Specimen Performing Laboratory Blood [address] [address] Narrative Troponin I (TnI) levels must be [...] - 4.7 mg/dL Specimen Performing Laboratory Blood [address] [address] Ferritin (09/20/2017 3:01 AM) Component Value Ref Range Ferritin 535 (H) 5 - 275 ng/mL Specimen Performing Laboratory Blood [address] [address] Creatine Kinase (CK), Total and MB (09/20/2017 3:01 AM) Component Value Ref Range Total CK 76 29 - 200 U/L CK-MB 1.9 0.0 - 6.6 ng/mL MB Relative Index 2.5 % Specimen Performing Laboratory Blood [address] [address] Narrative CK-MB Reference Range: <6.7Normal 6.7-10.0Borderline >10.0 Abnormal ECG 12 lead (09/20/2017 2:43 AM) Specimen Performing Laboratory [facility] Narrative Ventricular Rate 79 BPM Atrial Rate 79 BPM P-R Interval 192 ms QRS Duration 152 ms Q-T Interval 456 ms QTC Calculation(Bazett) 522 ms P Davis 59 degrees R Davis -15 degrees T Davis 87 degrees Normal sinus rhythm Left bundle branch block Prolonged QT Abnormal ECG No previous ECGs available Confirmed by MD TRISTAN YOCHAI ([id number]) on 09/20/2017 6:40:55 AM Procedure Note Interface, External Ris In - 09/20/2017 6:41 AM INSTRUCTOR OF NURSING Ventricular Rate 79 BPM Atrial Rate 79 BPM P-R Interval 192 ms QRS Duration 152 ms Q-T Interval 456 ms QTC Calculation(Bazett) 522 ms P Davis 59 degrees R Davis -15 degrees T Davis 87 degrees Normal sinus rhythm Left bundle branch block Prolonged QT Abnormal ECG No previous ECGs available Confirmed by MD TRISTAN YOCHAI ([id number]) on 09/20/2017 6:40:55 AM Blood culture (09/20/2017 12:43 AM)Only the most recent of2 resultswithin the time period is included. Component Value Ref Range Result No growth in 5 days Specimen Performing Laboratory Blood - Arm, Left [address] [address] after 05/26/2017
--- OUTSIDE RECORDS SUMMARY | 2018-05-27 16:34 | XMS REPORT ---
:1955 [facility] Address [address] [place] [address] Dr. Chavira. [address] [place] [address] Care Team Providers Name Role Phone DR [...] ID 2017-12-20 2017-12-20 Outpatient C LYSSA [facility] [id number] 05:45:00 10:51:00 Results Test Description Test Time Test Comments Text Results Atomic Results Result Comments GLUCOMETER GLUCOSE- LAB USE ONLY 2017-12-20 09:57:00 Test Item Value Reference Range Comments GLUCOMETER (test code=GMG) 163 mg/dL 70-100 Meter ID: [id number]: [id number] ARIC ROBERSON GLUCOMETER GLUCOSE- LAB USE [id number] 06:56:00 Test Item Value Reference Range Comments GLUCOMETER (test code=GMG) 148 mg/dL 70-100 CLEANED METERMeter ID: [id number]: [id number] [employer] CULTURE + [id number] 18:43:00 Test Item Value Reference Range Comments CULTURE (BEAKER) (test No acid-fast bacilli isolated uvyk=6964) in 42 days AFB SMEAR (BEAKER) (test No acid fast bacilli seen fpzq=372) FUNGUS CULTURE + [id number] 13:42:00 Test Item Value Reference Range Comments CULTURE (BEAKER) (test No fungus isolated in 28 days aasm=4781) FUNGUS SMEAR (BEAKER) (test No fungi seen mges=9387) BODY FLUID CULTURE + GRAM [id number] 06:03:00 Test Item Value Reference Range Comments CULTURE (BEAKER) (test ldbp=8351) No growth GRAM STAIN RESULT (BEAKER) (test No White blood cells seen duck=3797) GRAM STAIN RESULT (BEAKER) (test No organisms seen aaew=33023) POCT-GLUCOSE [id number] 12:20:00 Test Item Value Reference Range Comments POC-GLUCOSE METER (BEAKER) 181 mg/dL 70-110 TESTED AT [address] (test oyod=6659) [place] [address] POCT-GLUCOSE [id number] 08:56:00 Test Item Value Reference Range Comments POC-GLUCOSE METER (BEAKER) 119 mg/dL 70-110 TESTED AT [address] (test phhv=8134) [place] [id number] BASIC METABOLIC [id number] 07:37:00 Test Item Value Reference Range Comments SODIUM (BEAKER) (test 135 meq/L 136-145 bhbn=025) POTASSIUM (BEAKER) (test 4.3 meq/L 3.5-5.1 dzyy=333) CHLORIDE (BEAKER) (test 106 meq/L 98-107 rltt=831) CO2 (BEAKER) (test 19 meq/L 22-29 sybs=218) BLOOD UREA NITROGEN 49 mg/dL 7-21 (BEAKER) (test kpth=234) CREATININE (BEAKER) (test 3.42 mg/dL 0.57-1.25 lotj=270) GLUCOSE RANDOM (BEAKER) 109 mg/dL 70-105 (test aocm=463) CALCIUM (BEAKER) (test 9.4 mg/dL 8.4-10.2 npum=948) EGFR (BEAKER) (test 14 mL/min/1.73 sq m ESTIMATED GFR IS NOT mnwg=6629) ACCURATE CREATININE CLEARANCE IN PREDICTING GLOMERULAR FILTRATION RATE. ESTIMATED GFR IS NOT APPLICABLE FOR DIALYSIS PATIENTS. [id number] 07:36:00 Test Item Value Reference Range Comments MAGNESIUM (BEAKER) (test rlhr=601) 1.7 mg/dL 1.6-2.6 BODY FLUID CELL COUNT WITH [id number] 22:37:00 Test Item Value Reference Range Comments APPEARANCE FLUID (BEAKER) (test fnnk=377) Bloody Clear COLOR FLUID (BEAKER) (test asga=662) Pita Colorless, Straw RBC FLUID (BEAKER) (test cjyq=306) 13178 /cu mm <=1 ADJUSTED WBC FLUID (BEAKER) (test xddg=3143) 3032 /cu mm <=5 LINING CELLS (BEAKER) (test yfjj=8617) 121 /cu mm <=1 NEUTROPHILS FLUID (BEAKER) (test vqcv=4374) 32 % LYMPHS FLUID (BEAKER) (test razr=198) 6 % MONO/MACROPHAGE FLUID (BEAKER) (test ypqy=784) 60 % EOSINOPHILS FLUID (BEAKER) (test vxva=117) 2 % BASO FLUID (BEAKER) (test ohsl=082) 0 % CONTAINER BODY FLUID (BEAKER) (test erkc=4315) EDTA Tube POCT-GLUCOSE [id number] 21:26:00 Test Item Value Reference Range Comments POC-GLUCOSE METER (BEAKER) 165 mg/dL 70-110 TESTED AT [address] (test tbnt=4843) [facility] [address] LACTATE DEHYDROGENASE (LDH), BODY [id number] 20:35:00 Test Item Value Reference Range Comments LACTATE DEHYDROGENASE FLUID (BEAKER) 234 U/L Light's criteria identifies (test ftgg=504) effusions if one or more are pre Absence of reference range indicates that normals have not been defined.Assay performance has not been validated for this type of specimen.PROTEIN, BODY [id number] 20:35:00 Test Item Value Reference Range Comments PROTEIN FLUID (BEAKER) (test 3.6 g/dL Light's criteria identifies huir=071) effusions if one or more are pre Absence of reference range indicates that normals have not been defined.Assay performance has not been validated for this type of specimen.POCT-GLUCOSE [id number] 17:21:00 Test Item Value Reference Range Comments POC-GLUCOSE METER (BEAKER) 134 mg/dL 70-110 TESTED AT [address] (test uuom=4650) [facility] [address] U/S, [id number] 17:19:00Laterality?->RightReason for exam:-> diagnsotic and therapeuticFINAL REPORT [...] After the area is anesthetized, a 4 Slovak catheter is advanced into the pleural space. [...] Peters Verified Date/Time: 09/27/2017 17:19:37 Reading Location: [place] [id number] Ultrasound Reading Room RAD, CHEST, 1 VIEW, NON [id number] 16:21: 00Reason for exam:->Post Thoracentesis U/S room 3 U/S Room 3 Should this be performed at the bedside?->YesFINAL REPORT AP chest HISTORY: Thoracentesis COMPARISON: 09/27/2017 IMPRESSION:Intact skeleton. Cardiac silhouette mildly enlarged. Mild interstitial prominence, similar to previous. Right effusion appears decreased. No pneumothorax. Signed: Tari Lea Verified Date/Time: 09/27/2017 16:21:56 Reading Location: [facility] Mammo Reading Room Electronically signed by: TARI LEA M.D. on 2017 04:21 PMRAD, CHEST, 1 VIEW, NON [id number] 13:43:00Reason for exam:-&gt ;overloadShould this be performed at the bedside?->YesFINAL REPORT Chest one view compared to September 25 Discussion: Cardiac prominence , pulmonary congestion, and small right base effusion are unchanged. No pneumothorax. Signed: Austyn Apodacaeport Verified Date/Time: 09/27/2017 13: 43:29 Reading Location: [facility] [id number] Consult Reading Room POCT-GLUCOSE [id number] 12:32:00 Test Item Value Reference Range Comments POC-GLUCOSE METER (BEAKER) 181 mg/dL 70-110 TESTED AT [address] (test pyun=9435) [place] [address] VITAMIN B12 AND [id number] 08:57:00 Test Item Value Reference Range Comments VITAMIN B12 (BEAKER) (test hvrv=504) > pg/mL 213-816 FOLATE (BEAKER) (test fegd=092) 13.3 ng/mL >=7.0 SPIN/CONCENTRATION [id number] 08:48:00 Test Item Value Reference Range Comments CONCENTRATION CHARGED (BEAKER) (test rmea=9665) Done POCT-GLUCOSE [id number] 07:58:00 Test Item Value Reference Range Comments POC-GLUCOSE METER (BEAKER) 155 mg/dL 70-110 TESTED AT [address] (test enhb=6848) [place] [address] BASIC METABOLIC [id number] 06:35:00 Test Item Value Reference Range Comments SODIUM (BEAKER) (test 134 meq/L 136-145 wlwv=820) POTASSIUM (BEAKER) (test 4.5 meq/L 3.5-5.1 ueuw=390) CHLORIDE (BEAKER) (test 107 meq/L 98-107 bxnr=409) CO2 (BEAKER) (test 18 meq/L 22-29 qiin=221) BLOOD UREA NITROGEN 45 mg/dL 7-21 (BEAKER) (test epbi=782) CREATININE (BEAKER) (test 3.29 mg/dL 0.57-1.25 grnw=512) GLUCOSE RANDOM (BEAKER) 149 mg/dL 70-105 (test gprp=629) CALCIUM (BEAKER) (test 9.4 mg/dL 8.4-10.2 ndwp=846) EGFR (BEAKER) (test 14 mL/min/1.73 sq m ESTIMATED GFR IS NOT hlbd=3365) ACCURATE CREATININE CLEARANCE IN PREDICTING GLOMERULAR FILTRATION RATE. ESTIMATED GFR IS NOT APPLICABLE FOR DIALYSIS PATIENTS. [id number] 06:34:00 Test Item Value Reference Range Comments MAGNESIUM (BEAKER) (test ifks=973) 1.6 mg/dL 1.6-2.6 POCT-GLUCOSE [id number] 21:34:00 Test Item Value Reference Range Comments POC-GLUCOSE METER (BEAKER) 172 mg/dL 70-110 TESTED AT [address] (test feco=7058) [facility] [address] POCT-GLUCOSE [id number] 18:44:00 Test Item Value Reference Range Comments POC-GLUCOSE METER (BEAKER) 179 mg/dL 70-110 TESTED AT [address] (test nftk=6819) [place] [id number] POCT-GLUCOSE [id number] 14:01:00 Test Item Value Reference Range Comments POC-GLUCOSE METER (BEAKER) 176 mg/dL 70-110 TESTED AT [address] (test xsom=5993) [facility] [address] LACTATE DEHYDROGENASE (LDH)2017-09-26 12:06:00 Test Item Value Reference Range Comments LACTATE DEHYDROGENASE (BEAKER) (test hzao=293) 309 U/L 125-220 PROTEIN, [id number] 12:04:00 Test Item Value Reference Range Comments TOTAL PROTEIN (BEAKER) (test fxaq=900) 6.1 gm/dL 6.0-8.3 [id number] 11:43:00 Test Item Value Reference Range Comments PROTIME (BEAKER) (test dbmq=645) 14.5 seconds 11.7-14.7 INR (BEAKER) (test xcqd=729) 1.1 <=5.9 PARTIAL THROMBOPLASTIN TIME (BEAKER) (test 39.2 seconds 22.5-36.0 lsrj=486) RECOMMENDED COUMADIN/WARFARIN INR THERAPY RANGESSTANDARD DOSE: 2.0 - 3.0 Includes: PROPHYLAXIS forvenous thrombosis, systemic embolization; TREATMENT for venous thrombosis and/or pulmonary embolus.HIGH RISK: Target INR is 2.5-3.5 for patients with mechanical heart valves.PLATELET [id number] 11:31:00 Test Item Value Reference Range Comments PLATELET COUNT (BEAKER) (test gaep=771) 501 K/CU MM 150-450 POCT-GLUCOSE [id number] 08:42:00 Test Item Value Reference Range Comments POC-GLUCOSE METER (BEAKER) 146 mg/dL 70-110 TESTED AT [address] (test jlfk=7186) [place] [address] BASIC METABOLIC [id number] 05:39:00 Test Item Value Reference Range Comments SODIUM (BEAKER) (test 137 meq/L 136-145 yzst=554) POTASSIUM (BEAKER) (test 4.7 meq/L 3.5-5.1 jmaw=798) CHLORIDE (BEAKER) (test 109 meq/L 98-107 nswj=711) CO2 (BEAKER) (test 20 meq/L 22-29 ldfz=303) BLOOD UREA NITROGEN 43 mg/dL 7-21 (BEAKER) (test cheq=688) CREATININE (BEAKER) (test 3.09 mg/dL 0.57-1.25 lqch=315) GLUCOSE RANDOM (BEAKER) 160 mg/dL 70-105 (test fxca=544) CALCIUM (BEAKER) (test 9.6 mg/dL 8.4-10.2 ltww=914) EGFR (BEAKER) (test 15 mL/min/1.73 sq m ESTIMATED GFR IS NOT vbxh=5244) ACCURATE CREATININE CLEARANCE IN PREDICTING GLOMERULAR FILTRATION RATE. ESTIMATED GFR IS NOT APPLICABLE FOR DIALYSIS PATIENTS. [id number] 05:38:00 Test Item Value Reference Range Comments MAGNESIUM (BEAKER) (test caoy=221) 1.9 mg/dL 1.6-2.6 POCT-GLUCOSE [id number] 21:13:00 Test Item Value Reference Range Comments POC-GLUCOSE METER (BEAKER) 241 mg/dL 70-110 TESTED AT [address] (test cisr=0208) [facility] [address] RAD, CHEST, 2 [id number] 19:38:00Reason for exam:->coughFINAL REPORT Examination: Two view [...] MDReport Verified Date/Time: 2017 19:38:01 Reading Location: [address] Reading Room POCT- GLUCOSE [id number] 17:23:00 Test Item Value Reference Range Comments POC-GLUCOSE METER (BEAKER) 190 mg/dL 70-110 TESTED AT [address] (test wzhc=5612) [place] [id number] POCT-GLUCOSE [id number] 12:22:00 Test Item Value Reference Range Comments POC-GLUCOSE METER (BEAKER) 239 mg/dL 70-110 TESTED AT [address] (test ppbr=2189) [place] [address] BLOOD [id number] 10:00:00 Test Item Value Reference Range Comments CULTURE (BEAKER) (test uxzw=6017) No growth in 5 days BLOOD [id number] 10:00:00 Test Item Value Reference Range Comments CULTURE (BEAKER) (test wxky=0839) No growth in 5 days POCT-GLUCOSE [id number] 08:02:00 Test Item Value Reference Range Comments POC-GLUCOSE METER (BEAKER) 196 mg/dL 70-110 TESTED AT [address] (test bfup=2153) [place] [address] [id number] 07:15:00 Test Item Value Reference Range Comments MAGNESIUM (BEAKER) (test kbnh=011) 1.8 mg/dL 1.6-2.6 BASIC METABOLIC [id number] 07:15:00 Test Item Value Reference Range Comments SODIUM (BEAKER) (test 136 meq/L 136-145 awsz=932) POTASSIUM (BEAKER) (test 4.4 meq/L 3.5-5.1 waqj=582) CHLORIDE (BEAKER) (test 109 meq/L 98-107 jntc=946) CO2 (BEAKER) (test 19 meq/L 22-29 nzbz=954) BLOOD UREA NITROGEN 44 mg/dL 7-21 (BEAKER) (test ghec=623) CREATININE (BEAKER) (test 3.16 mg/dL 0.57-1.25 ebzp=051) GLUCOSE RANDOM (BEAKER) 197 mg/dL 70-105 (test olre=028) CALCIUM (BEAKER) (test 9.3 mg/dL 8.4-10.2 qpqk=972) EGFR (BEAKER) (test 15 mL/min/1.73 sq m ESTIMATED GFR IS NOT ltzp=1566) ACCURATE CREATININE CLEARANCE IN PREDICTING GLOMERULAR FILTRATION RATE. ESTIMATED GFR IS NOT APPLICABLE FOR DIALYSIS PATIENTS. POCT-GLUCOSE [id number] 22:03:00 Test Item Value Reference Range Comments POC-GLUCOSE METER (BEAKER) 286 mg/dL 70-110 TESTED AT [address] (test jivt=0750) [facility] [address] POCT-GLUCOSE [id number] 21:21:00 Test Item Value Reference Range Comments POC-GLUCOSE METER (BEAKER) 294 mg/dL 70-110 TESTED AT [address] (test fmvl=4804) [facility] [address] POCT-GLUCOSE [id number] 17:10:00 Test Item Value Reference Range Comments POC-GLUCOSE METER (BEAKER) 212 mg/dL 70-110 TESTED AT [address] (test fcvf=6155) [facility] [address] PROTEIN, RANDOM [id number] 17:00:00 Test Item Value Reference Range Comments PROTEIN, URINE (BEAKER) (test xmbp=7206) 154 mg/dL 0-14 CREATININE, RANDOM [id number] 16:59:00 Test Item Value Reference Range Comments CREATININE URINE (BEAKER) (test dlwk=496) 88.8 mg/dL Reference Range: No NormalsPET, CARDIAC PERFUSION MULTIPLE STUDIES, REST AND [id number] 16:36:00Reason for exam:->chest pain, hypokinesis on echoFINAL REPORT PROCEDURE: Rest/Stress MYOCARDIAL PERFUSION PET with regadenoson\\XA9\\ CPT CODE: 43889 INDICATION: Chest pain, hypokinesis on echo HISTORY: [...] tracer distribution is normal. 6. No previous [facility] study for comparison. NONINVASIVE RISK STRATIFICATION: The above findings are considered low risk based on the following criteria: 1)Normal or small myocardial perfusion defect at rest or with stress(JACC. 2012;59(9):857-81.) Signed: Selvin Braswell Verified Date/Time: 09/24/2017 16:36:36 POCT- GLUCOSE [id number] 10:53:00 Test Item Value Reference Range Comments POC-GLUCOSE METER (BEAKER) 158 mg/dL 70-110 TESTED AT [facility] [address] [facility] (test umck=8337) [facility] [address] POCT-GLUCOSE [id number] 07:31:00 Test Item Value Reference Range Comments POC-GLUCOSE METER (BEAKER) 142 mg/dL 70-110 TESTED AT [facility] [address] [facility] (test tvyw=6715) [facility] [address] BASIC METABOLIC [id number] 05:57:00 Test Item Value Reference Range Comments SODIUM (BEAKER) (test 138 meq/L 136-145 bmse=463) POTASSIUM (BEAKER) (test 4.3 meq/L 3.5-5.1 jlzx=803) CHLORIDE (BEAKER) (test 110 meq/L 98-107 vusa=688) CO2 (BEAKER) (test 19 meq/L 22-29 swmn=242) BLOOD UREA NITROGEN 42 mg/dL 7-21 (BEAKER) (test brgq=857) CREATININE (BEAKER) (test 3.58 mg/dL 0.57-1.25 uplh=292) GLUCOSE RANDOM (BEAKER) 139 mg/dL 70-105 (test tint=684) CALCIUM (BEAKER) (test 9.4 mg/dL 8.4-10.2 bmzs=602) EGFR (BEAKER) (test 13 mL/min/1.73 sq m ESTIMATED GFR IS NOT cbfa=8012) ACCURATE CREATININE CLEARANCE IN PREDICTING GLOMERULAR FILTRATION RATE. ESTIMATED GFR IS NOT APPLICABLE FOR DIALYSIS PATIENTS. [id number] 05:13:00 Test Item Value Reference Range Comments MAGNESIUM (BEAKER) (test ozfr=792) 1.9 mg/dL 1.6-2.6 VANCOMYCIN LEVEL, [id number] 05:10:00 Test Item Value Reference Range Comments VANCOMYCIN RANDOM (BEAKER) (test wmzv=335) 16.6 ug/mL Reference Range: No NormalsU/S, RENAL, [id number] 22:13:00Reason for exam:->Elevated creatinineFINAL REPORT U/S, RENAL, [...] MDReport Verified Date/Time: 09/23/2017 22:13:52 Reading Location: [address] Ortho Consult Reading Room POCT-GLUCOSE [id number] 21:25:00 Test Item Value Reference Range Comments POC-GLUCOSE METER (BEAKER) 220 mg/dL 70-110 TESTED AT [address] (test hzey=3041) [place] [address] POCT-GLUCOSE [id number] 17:02:00 Test Item Value Reference Range Comments POC-GLUCOSE METER (BEAKER) 223 mg/dL 70-110 TESTED AT [address] (test qsph=0571) [place] [address] BRONCHIAL CULTURE + GRAM [id number] 15:04:00 Test Item Value Reference Range Comments CULTURE (BEAKER) (test pmvi=4951) No growth GRAM STAIN RESULT (BEAKER) (test <1+ WBCs wfmf=9221) GRAM STAIN RESULT (BEAKER) (test No organisms seen bjej=15486) URINALYSIS W/ REFLEX URINE [id number] 13:20:00 Test Item Value Reference Range Comments COLOR (BEAKER) (test qshw=804) Yellow CLARITY (BEAKER) (test idyd=912) Hazy SPECIFIC GRAVITY UA (BEAKER) (test zpqe=489) 1.010 1.001-1.035 PH UA (BEAKER) (test xhen=618) 5.5 5.0-8.0 PROTEIN UA (BEAKER) (test irgj=664) 100 mg/dL Negative GLUCOSE UA (BEAKER) (test ijjh=073) 30 mg/dL Negative KETONES UA (BEAKER) (test wfif=009) Negative Negative BILIRUBIN UA (BEAKER) (test dhaj=061) Negative Negative BLOOD UA (BEAKER) (test ubya=396) Negative Negative NITRITE UA (BEAKER) (test lsto=041) Negative Negative LEUKOCYTE ESTERASE UA (BEAKER) (test oocb=800) Negative Negative UROBILINOGEN UA (BEAKER) (test qefn=823) 0.2 mg/dL 0.2-1.0 RBC UA (BEAKER) (test mrla=246) 0 /HPF WBC UA (BEAKER) (test sodw=161) 1 /HPF BACTERIA (BEAKER) (test bbcd=640) Occasional MUCUS (BEAKER) (test apoz=8167) Rare SQUAMOUS EPITHELIAL (BEAKER) (test mptu=808) 11 /HPF YEAST (BEAKER) (test fxpf=2302) Rare SOURCE(BEAKER) (test dmge=6290) CREATININE, RANDOM [id number] 13:13:00 Test Item Value Reference Range Comments CREATININE URINE (BEAKER) (test wgft=342) 101.2 mg/dL Reference Range: No NormalsSODIUM, RANDOM [id number] 13:13:00 Test Item Value Reference Range Comments SODIUM URINE (BEAKER) (test mkoi=699) 31 meq/L Reference Range: No NormalsPOCT-GLUCOSE [id number] 11:37:00 Test Item Value Reference Range Comments POC-GLUCOSE METER (BEAKER) 342 mg/dL 70-110 TESTED AT [facility] [address] [facility] (test qdvf=3643) [facility] [address] VANCOMYCIN LEVEL, [id number] 08:10:00 Test Item Value Reference Range Comments VANCOMYCIN RANDOM (BEAKER) (test gdgo=386) 20.6 ug/mL Reference Range: No NormalsBASIC METABOLIC [id number] 08:05:00 Test Item Value Reference Range Comments SODIUM (BEAKER) (test 140 meq/L 136-145 dlio=232) POTASSIUM (BEAKER) (test 4.2 meq/L 3.5-5.1 lkrb=620) CHLORIDE (BEAKER) (test 109 meq/L 98-107 khtp=688) CO2 (BEAKER) (test 18 meq/L 22-29 igmc=693) BLOOD UREA NITROGEN 51 mg/dL 7-21 (BEAKER) (test uhda=901) CREATININE (BEAKER) (test 3.45 mg/dL 0.57-1.25 hqvj=386) GLUCOSE RANDOM (BEAKER) 159 mg/dL 70-105 (test ijhl=218) CALCIUM (BEAKER) (test 9.4 mg/dL 8.4-10.2 zocy=776) EGFR (BEAKER) (test 14 mL/min/1.73 sq m ESTIMATED GFR IS NOT fbtz=9007) ACCURATE CREATININE CLEARANCE IN PREDICTING GLOMERULAR FILTRATION RATE. ESTIMATED GFR IS NOT APPLICABLE FOR DIALYSIS PATIENTS. CBC W/PLT COUNT & AUTO [id number] 07:43:00 Test Item Value Reference Range Comments WHITE BLOOD CELL COUNT (BEAKER) (test ldeu=526) 12.7 K/ L 3.5-10.5 RED BLOOD CELL COUNT (BEAKER) (test dzci=811) 2.61 M/ L 3.93-5.22 HEMOGLOBIN (BEAKER) (test tfbs=749) 7.9 GM/DL 11.2-15.7 HEMATOCRIT (BEAKER) (test efqb=990) 24.7 % 34.1-44.9 MEAN CORPUSCULAR VOLUME (BEAKER) (test vekv=665) 94.6 fL 79.4-94.8 MEAN CORPUSCULAR HEMOGLOBIN (BEAKER) (test 30.3 pg 25.6-32.2 vyom=105) MEAN CORPUSCULAR HEMOGLOBIN CONC (BEAKER) (test 32.0 GM/DL 32.2-35.5 wxub=483) RED CELL DISTRIBUTION WIDTH (BEAKER) (test 14.2 % 11.7-14.4 auev=906) PLATELET COUNT (BEAKER) (test ilts=717) 466 K/CU MM 150-450 MEAN PLATELET VOLUME (BEAKER) (test hlon=887) 10.6 fL 9.4-12.3 NUCLEATED RED BLOOD CELLS (BEAKER) (test 0 /100 WBC 0-0 navc=069) NEUTROPHILS RELATIVE PERCENT (BEAKER) (test 64 % ohld=004) LYMPHOCYTES RELATIVE PERCENT (BEAKER) (test 17 % nqyj=081) MONOCYTES RELATIVE PERCENT (BEAKER) (test 11 % hfrw=112) EOSINOPHILS RELATIVE PERCENT (BEAKER) (test 7 % ycno=087) BASOPHILS RELATIVE PERCENT (BEAKER) (test 0 % eiwn=473) NEUTROPHILS ABSOLUTE COUNT (BEAKER) (test 8.16 K/ L 1.56-6.13 wppk=840) LYMPHOCYTES ABSOLUTE COUNT (BEAKER) (test 2.14 K/ L 1.18-3.74 bvva=146) MONOCYTES ABSOLUTE COUNT (BEAKER) (test 1.35 K/ L 0.24-0.36 trni=034) EOSINOPHILS ABSOLUTE COUNT (BEAKER) (test 0.83 K/ L 0.04-0.36 mxia=703) BASOPHILS ABSOLUTE COUNT (BEAKER) (test 0.04 K/ L 0.01-0.08 nkzb=538) IMMATURE GRANULOCYTES-RELATIVE PERCENT (BEAKER) 2 % 0-1 (test elcr=0227) [id number] 07:35:00 Test Item Value Reference Range Comments MAGNESIUM (BEAKER) (test gyeq=679) 1.9 mg/dL 1.6-2.6 POCT-GLUCOSE [id number] 07:33:00 Test Item Value Reference Range Comments POC-GLUCOSE METER (BEAKER) 196 mg/dL 70-110 TESTED AT [address] (test scml=0168) [place] [address] POCT-GLUCOSE [id number] 21:15:00 Test Item Value Reference Range Comments POC-GLUCOSE METER (BEAKER) 243 mg/dL 70-110 TESTED AT [address] (test lzlz=5724) [place] [address] POCT-GLUCOSE [id number] 17:44:00 Test Item Value Reference Range Comments POC-GLUCOSE METER (BEAKER) 218 mg/dL 70-110 TESTED AT [address] (test vczz=9263) [place] [address] CMV PCR, [id number] 17:31:00 Test Item Value Reference Range Comments CMV VIRAL LOAD - NEGATIVE Negative or below the linear (BEAKER) (test fxsc=6808) range of the assay (<375 copies/mL) Cytomegalovirus [...] and its performance characteristics determined by the [facility] Pathology Department, Section of Molecular Pathology. It has not been cleared or approved by the U.S. Food and Drug Administration (FDA), since FDA approval is not required for clinical use of the test. Validation was done as required by The Clinical Laboratory Improvement Amendments of 1988.POCT-GLUCOSE [id number] 12:39:00 Test Item Value Reference Range Comments POC-GLUCOSE METER (BEAKER) 210 mg/dL 70-110 TESTED AT [address] (test dbqu=8861) [place] [id number] POCT-GLUCOSE [id number] 07:41:00 Test Item Value Reference Range Comments POC-GLUCOSE METER (BEAKER) 151 mg/dL 70-110 TESTED AT [place] [id number] [facility] (test dtht=0158) [place] [id number] BASIC METABOLIC [id number] 05:54:00 Test Item Value Reference Range Comments SODIUM (BEAKER) (test 140 meq/L 136-145 hcrq=520) POTASSIUM (BEAKER) (test 4.4 meq/L 3.5-5.1 ikjo=179) CHLORIDE (BEAKER) (test 109 meq/L 98-107 ktut=915) CO2 (BEAKER) (test 20 meq/L 22-29 foog=884) BLOOD UREA NITROGEN 49 mg/dL 7-21 (BEAKER) (test yahc=173) CREATININE (BEAKER) (test 3.42 mg/dL 0.57-1.25 sgjc=162) GLUCOSE RANDOM (BEAKER) 140 mg/dL 70-105 (test nkxr=235) CALCIUM (BEAKER) (test 9.4 mg/dL 8.4-10.2 bxqm=927) EGFR (BEAKER) (test 14 mL/min/1.73 sq m ESTIMATED GFR IS NOT twiw=1037) ACCURATE CREATININE CLEARANCE IN PREDICTING GLOMERULAR FILTRATION RATE. ESTIMATED GFR IS NOT APPLICABLE FOR DIALYSIS PATIENTS. VANCOMYCIN LEVEL, [id number] 05:54:00 Test Item Value Reference Range Comments VANCOMYCIN RANDOM (BEAKER) (test mdff=151) 30.7 ug/mL Reference Range: No [id number] 05:47:00 Test Item Value Reference Range Comments MAGNESIUM (BEAKER) (test sugx=138) 1.8 mg/dL 1.6-2.6 CBC W/PLT COUNT & AUTO [id number] 05:15:00 Test Item Value Reference Range Comments WHITE BLOOD CELL COUNT (BEAKER) (test fmhq=294) 12.2 K/ L 3.5-10.5 RED BLOOD CELL COUNT (BEAKER) (test dvrf=698) 2.44 M/ L 3.93-5.22 HEMOGLOBIN (BEAKER) (test cvlo=646) 7.7 GM/DL 11.2-15.7 HEMATOCRIT (BEAKER) (test xslk=686) 23.2 % 34.1-44.9 MEAN CORPUSCULAR VOLUME (BEAKER) (test bvdt=150) 95.1 fL 79.4-94.8 MEAN CORPUSCULAR HEMOGLOBIN (BEAKER) (test 31.6 pg 25.6-32.2 fsdd=181) MEAN CORPUSCULAR HEMOGLOBIN CONC (BEAKER) (test 33.2 GM/DL 32.2-35.5 lysc=370) RED CELL DISTRIBUTION WIDTH (BEAKER) (test 14.1 % 11.7-14.4 mvta=977) PLATELET COUNT (BEAKER) (test kvyp=636) 396 K/CU MM 150-450 MEAN PLATELET VOLUME (BEAKER) (test mhjz=780) 9.9 fL 9.4-12.3 NUCLEATED RED BLOOD CELLS (BEAKER) (test 0 /100 WBC 0-0 acsp=532) NEUTROPHILS RELATIVE PERCENT (BEAKER) (test 63 % ytnw=839) LYMPHOCYTES RELATIVE PERCENT (BEAKER) (test 16 % ncll=375) MONOCYTES RELATIVE PERCENT (BEAKER) (test 11 % xxju=440) EOSINOPHILS RELATIVE PERCENT (BEAKER) (test 7 % xapb=447) BASOPHILS RELATIVE PERCENT (BEAKER) (test 0 % uhep=232) NEUTROPHILS ABSOLUTE COUNT (BEAKER) (test 7.70 K/ L 1.56-6.13 vrmn=455) LYMPHOCYTES ABSOLUTE COUNT (BEAKER) (test 1.99 K/ L 1.18-3.74 bcer=703) MONOCYTES ABSOLUTE COUNT (BEAKER) (test 1.34 K/ L 0.24-0.36 kcij=744) EOSINOPHILS ABSOLUTE COUNT (BEAKER) (test 0.80 K/ L 0.04-0.36 twbb=954) BASOPHILS ABSOLUTE COUNT (BEAKER) (test 0.05 K/ L 0.01-0.08 kkxl=751) IMMATURE GRANULOCYTES-RELATIVE PERCENT (BEAKER) 3 % 0-1 (test wafi=4802) POCT-GLUCOSE [id number] 21:10:00 Test Item Value Reference Range Comments POC-GLUCOSE METER (BEAKER) 209 mg/dL 70-110 TESTED AT [address] (test rqhq=8585) [place] [address] POCT-GLUCOSE [id number] 16:57:00 Test Item Value Reference Range Comments POC-GLUCOSE METER (BEAKER) 90 mg/dL 70-110 TESTED AT [address] (test emiv=2460) [place] [id number] POCT-GLUCOSE [id number] 12:39:00 Test Item Value Reference Range Comments POC-GLUCOSE METER (BEAKER) 63 mg/dL 70-110 TESTED AT [address] (test lawc=7435) [place] [id number] BLOOD GAS, [id number] 11:19:00 Test Item Value Reference Range Comments PH ARTERIAL (BEAKER) (test ofrc=216) 7.43 7.35-7.45 PCO2 ARTERIAL (BEAKER) (test frnv=549) 32 mmHg 35-45 PO2 ARTERIAL (BEAKER) (test oddr=031) 226 mmHg 80-90 O2 SATURATION ARTERIAL (BEAKER) (test fbih=748) 99.5 % 96.0-97.0 HCO3 ARTERIAL (BEAKER) (test eutu=667) 21 mmol/L 21-29 BASE EXCESS ARTERIAL (BEAKER) (test veat=150) -3.3 mmol/L -2.0-3.0 PATIENT TEMPERATURE (BEAKER) (test kmgu=6935) 36.9 C FIO2 (BEAKER) (test zyte=3435) 60.0 % RAD, CHEST, 1 VIEW, NON [id number] 09:41:00Reason for exam:-> intubationShould this be performed [...] MDReport Verified Date/Time: 09/21/2017 09:41:46 Reading Location: [facility] Radiology Reading Room POCT-GLUCOSE [id number] 08:45:00 Test Item Value Reference Range Comments POC-GLUCOSE METER (BEAKER) 72 mg/dL 70-110 TESTED AT [facility] [address] [facility] (test efgj=6583) [facility] [address] [id number] 06:31:00 Test Item Value Reference Range Comments MAGNESIUM (BEAKER) (test bbgh=587) 2.0 mg/dL 1.6-2.6 BASIC METABOLIC [id number] 06:31:00 Test Item Value Reference Range Comments SODIUM (BEAKER) (test 139 meq/L 136-145 xzpp=147) POTASSIUM (BEAKER) (test 4.6 meq/L 3.5-5.1 mkxz=304) CHLORIDE (BEAKER) (test 109 meq/L 98-107 drdh=103) CO2 (BEAKER) (test 19 meq/L 22-29 wktm=136) BLOOD UREA NITROGEN 44 mg/dL 7-21 (BEAKER) (test icac=953) CREATININE (BEAKER) (test 3.07 mg/dL 0.57-1.25 fefj=794) GLUCOSE RANDOM (BEAKER) 83 mg/dL 70-105 (test bejn=775) CALCIUM (BEAKER) (test 9.5 mg/dL 8.4-10.2 gnsb=331) EGFR (BEAKER) (test 15 mL/min/1.73 sq m ESTIMATED GFR IS NOT ekvm=9786) ACCURATE CREATININE CLEARANCE IN PREDICTING GLOMERULAR FILTRATION RATE. ESTIMATED GFR IS NOT APPLICABLE FOR DIALYSIS PATIENTS. CBC W/PLT COUNT & AUTO [id number] 05:56:00 Test Item Value Reference Range Comments WHITE BLOOD CELL COUNT (BEAKER) (test ljsr=761) 12.8 K/ L 3.5-10.5 RED BLOOD CELL COUNT (BEAKER) (test bppc=006) 2.67 M/ L 3.93-5.22 HEMOGLOBIN (BEAKER) (test uezp=926) 8.3 GM/DL 11.2-15.7 HEMATOCRIT (BEAKER) (test qcax=651) 25.4 % 34.1-44.9 MEAN CORPUSCULAR VOLUME (BEAKER) (test tszr=708) 95.1 fL 79.4-94.8 MEAN CORPUSCULAR HEMOGLOBIN (BEAKER) (test 31.1 pg 25.6-32.2 cgbu=759) MEAN CORPUSCULAR HEMOGLOBIN CONC (BEAKER) (test 32.7 GM/DL 32.2-35.5 xmxy=534) RED CELL DISTRIBUTION WIDTH (BEAKER) (test 14.3 % 11.7-14.4 kgzo=751) PLATELET COUNT (BEAKER) (test zzza=823) 394 K/CU MM 150-450 MEAN PLATELET VOLUME (BEAKER) (test gioz=048) 10.3 fL 9.4-12.3 NUCLEATED RED BLOOD CELLS (BEAKER) (test 0 /100 WBC 0-0 ipsy=668) NEUTROPHILS RELATIVE PERCENT (BEAKER) (test 63 % jusi=859) LYMPHOCYTES RELATIVE PERCENT (BEAKER) (test 16 % mwes=169) MONOCYTES RELATIVE PERCENT (BEAKER) (test 11 % dwjm=109) EOSINOPHILS RELATIVE PERCENT (BEAKER) (test 6 % zgnt=053) BASOPHILS RELATIVE PERCENT (BEAKER) (test 0 % ttzt=395) NEUTROPHILS ABSOLUTE COUNT (BEAKER) (test 8.06 K/ L 1.56-6.13 nbhd=189) LYMPHOCYTES ABSOLUTE COUNT (BEAKER) (test 2.00 K/ L 1.18-3.74 rvey=470) MONOCYTES ABSOLUTE COUNT (BEAKER) (test 1.43 K/ L 0.24-0.36 aggt=828) EOSINOPHILS ABSOLUTE COUNT (BEAKER) (test 0.80 K/ L 0.04-0.36 aeqz=173) BASOPHILS ABSOLUTE COUNT (BEAKER) (test 0.05 K/ L 0.01-0.08 mxwn=811) IMMATURE GRANULOCYTES-RELATIVE PERCENT (BEAKER) 4 % 0-1 (test puql=8107) RAD, CHEST, 1 VIEW, NON [id number] 03:49:00Reason for exam:->PNAShould this be performed at [...] pneumothorax or acute bony abnormality. Signed: [facility] Verified Date/Time: 09/21/2017 03:49:47 Reading Location: [address] Reading Room POCT-GLUCOSE [id number] 22:14:00 Test Item Value Reference Range Comments POC-GLUCOSE METER (BEAKER) 173 mg/dL 70-110 TESTED AT [address] (test idcj=5751) [place] [address] LEGIONELLA ANTIGEN, [id number] 19:27:00 Test Item Value Reference Range Comments L. PNEUMOPHILA SEROGP 1 Negative - see Negative for L. UR AG (BEAKER) (test comment pneumophila serogroup 1 jjsh=5855) antigen, suggesting no recent or current infection with this serogroup. Legionellosis cannot be ruled out since other serogroups and species may cause disease. POCT-GLUCOSE [id number] 18:01:00 Test Item Value Reference Range Comments POC-GLUCOSE METER (BEAKER) 237 mg/dL 70-110 TESTED AT [address] (test tgvy=4355) [place] [id number] HEMOGLOBIN [id number] 14:19:00 Test Item Value Reference Range Comments HEMOGLOBIN A1C (BEAKER) (test wpuh=727) 6.8 % 4.3-6.1 RESPIRATORY PANEL [id number] 13:56:00 Test Item Value Reference Range Comments HUMAN METAPNEUMOVIRUS (BEAKER) (test Not detected Not detected, Inconclusive ontx=3114) RHINOVIRUS (BEAKER) (test mkxd=8525) Not detected Not detected, Inconclusive INFLUENZA A (BEAKER) (test Not detected Not detected, Inconclusive xqnv=9778) INFLUENZA A SUBTYPE H1 (BEAKER) Not detected Not detected, Inconclusive (test bmxw=2716) INFLUENZA A SUBTYPE H3 (BEAKER) Not detected Not detected, Inconclusive (test fnak=8192) INFLUENZA A SUBTYPE H1-2009 (BEAKER) Not detected Not detected, Inconclusive (test jvid=1208) INFLUENZA B (BEAKER) (test Not detected Not detected, Inconclusive jveb=6678) RESPIRATORY SYNCYTIAL VIRUS (BEAKER) Not detected Not detected, Inconclusive (test avkh=1430) PARAINFLUENZA VIRUS 1 (BEAKER) (test Not detected Not detected, Inconclusive smdc=9720) PARAINFLUENZA VIRUS 2 (BEAKER) (test Not detected Not detected, Inconclusive afwm=9303) PARAINFLUENZA VIRUS 3 (BEAKER) (test Not detected Not detected, Inconclusive ctrk=8888) PARAINFLUENZA VIRUS 4 (BEAKER) (test Not detected Not detected, Inconclusive xmwz=9905) ADENOVIRUS (BEAKER) (test maiz=2539) Not detected Not detected, Inconclusive CORONAVIRUS 229E (BEAKER) (test Not detected Not detected, Inconclusive xcxw=6389) CORONAVIRUS HKU1 (BEAKER) (test Not detected Not detected, Inconclusive enmu=9716) CORONAVIRUS NL63 (BEAKER) (test Not detected Not detected, Inconclusive doxd=6363) CORONAVIRUS OC43 (BEAKER) (test Not detected Not detected, Inconclusive xplq=0519) BORDETELLA PERTUSSIS (BEAKER) (test Not detected Not detected, Inconclusive qkde=4057) CHLAMYDOPHILA PNEUMONIAE (BEAKER) Not detected Not detected, Inconclusive (test sepg=0454) MYCOPLASMA PNEUMONIAE (BEAKER) (test Not detected Not detected, Inconclusive otvr=4694) [id number] 13:17:00 Test Item Value Reference Range Comments PROCALCITONIN (BEAKER) (test pqsp=6836) 2.35 ng/mL <0.05 SEPSIS RISK (ng/mL)Low: 0.05-0.50Intermediate: 0.51-2.00High: & gt;=2.01POCT-GLUCOSE [id number] 12:03:00 Test Item Value Reference Range Comments POC-GLUCOSE METER (BEAKER) 126 mg/dL 70-110 TESTED AT [address] (test pbfm=3085) [place] [address] B-TYPE NATRIURETIC FACTOR (BNP)2017-09-20 11:15:00 Test Item Value Reference Range Comments B-TYPE NATRIURETIC PEPTIDE (BEAKER) (test qxbm=866) 22 pg/mL 0-100 LACTIC ACID, VENOUS, WHOLE [id number] 11:05:00 Test Item Value Reference Range Comments LACTATE BLOOD VENOUS (2) (BEAKER) (test 0.5 mmol/L 0.5-2.2 qdhd=5542) Effective 01/27/2016: Units/Reference Range ChangeNew: 0.5-2.2 mmol/L Previous: 5 -20 mg/dLPOCT-GLUCOSE [id number] 10:09:00 Test Item Value Reference Range Comments POC-GLUCOSE METER (BEAKER) 104 mg/dL 70-110 TESTED AT [address] (test pwnh=0129) [place] [address] STREP PNEUMONIAE [id number] 09:55:00 Test Item Value Reference Range Comments STREP PNEUMONIAE ANTIGEN Presumptive negative for Presumptive negative for (AKER) (test pneumococcal pneumonia - pneumococcal pneumonia - xopb=0833) see comment see commen Presumptive negative for pneumococcal pneumonia, suggesting no current or recent pneumococcal infection. Infection due to S. pneumoniae cannot be ruled out since the antigen present in the sample may be below the detection limit of the test.CBC W/PLT COUNT & AUTO [id number] 09:42:00 Test Item Value Reference Range Comments WHITE BLOOD CELL COUNT (BEAKER) (test pagc=321) 12.4 K/ L 3.5-10.5 RED BLOOD CELL COUNT (BEAKER) (test rvan=484) 2.65 M/ L 3.93-5.22 HEMOGLOBIN (BEAKER) (test qomi=716) 8.2 GM/DL 11.2-15.7 HEMATOCRIT (BEAKER) (test hydx=768) 25.3 % 34.1-44.9 MEAN CORPUSCULAR VOLUME (BEAKER) (test kpcs=267) 95.5 fL 79.4-94.8 MEAN CORPUSCULAR HEMOGLOBIN (BEAKER) (test 30.9 pg 25.6-32.2 olnu=627) MEAN CORPUSCULAR HEMOGLOBIN CONC (BEAKER) (test 32.4 GM/DL 32.2-35.5 hpee=441) RED CELL DISTRIBUTION WIDTH (BEAKER) (test 14.3 % 11.7-14.4 hzux=748) PLATELET COUNT (BEAKER) (test cule=480) 328 K/CU MM 150-450 MEAN PLATELET VOLUME (BEAKER) (test hwyu=130) 10.8 fL 9.4-12.3 NUCLEATED RED BLOOD CELLS (BEAKER) (test 0 /100 WBC 0-0 lqbj=318) IMMATURE GRANULOCYTES-RELATIVE PERCENT (BEAKER) 6 % 0-1 (test sfzx=3365) (MANUAL DIFFERENTIAL)2017-09-20 09:42:00 Test Item Value Reference Range Comments NEUTROPHILS - REL (DIFF) (BEAKER) (test 54 % fkth=3452) LYMPHOCYTES - REL (DIFF) (BEAKER) (test 13 % iuzq=9146) MONOCYTES - REL (DIFF) (BEAKER) (test stxj=2790) 11 % EOSINOPHILS - REL (DIFF) (BEAKER) (test 6 % kfyi=4332) METAMYELOCYTES-REL (DIFF) (BEAKER) (test 3 % 0-0 mqsl=847) MYELOCYTES-REL (DIFF) (BEAKER) (test wplg=0157) 2 % 0-0 BANDS - REL (DIFF) (BEAKER) (test tgli=3880) 11 % 0-10 NEUTROPHILS - ABS (DIFF) (BEAKER) (test 6.70 K/ L 1.80-8.00 dpkp=0485) LYMPHOCYTES - ABS (DIFF) (BEAKER) (test 1.61 K/ L 1.48-4.50 cthj=1487) MONOCYTES - ABS (DIFF) (BEAKER) (test rkdo=6252) 1.36 K/ L 0.00-1.30 EOSINOPHILS - ABS (DIFF) (BEAKER) (test 0.74 K/ L 0.00-0.50 eqsq=2580) METAMYELOCTYES - ABS (DIFF) (BEAKER) (test 0.37 K/ L 0.00-0.00 mroh=610) BANDS-ABS (DIFF) (BEAKER) (test ppks=4115) 1.4 K/ L 0.0-0.8 MYELOCYTES-ABS (DIFF) (BEAKER) (test ieje=8071) 0.25 K/ L 0.00-0.00 TOTAL COUNTED (BEAKER) (test kell=6981) 100 BANDS + SEGMENTED NEUTROPHILS (BEAKER) (test 8.06 ulhv=9652) WBC MORPHOLOGY (BEAKER) (test posu=847) Normal PLT MORPHOLOGY (BEAKER) (test erxl=156) Normal ANISOCYTOSIS (BEAKER) (test thby=149) 2+ moderate POIKILOCYTES (BEAKER) (test hnbr=494) 2+ moderate POCT-GLUCOSE [id number] 08:34:00 Test Item Value Reference Range Comments POC-GLUCOSE METER (BEAKER) 55 mg/dL 70-110 Notified HONG LERMA/TESTED AT [facility] (test cpau=9614) [address] [facility] [address] [id number] 04:42:00 Test Item Value Reference Range Comments FERRITIN (BEAKER) (test mkqp=099) 535 ng/mL 5-275 IRON, TIBC, % SAT. (WITHOUT FERRITIN)2017-09-20 04:22:00 Test Item Value Reference Range Comments IRON (BEAKER) (test wvmq=205) 27 ug/dL 40-160 TOTAL IRON BINDING CAPACITY (BEAKER) (test 186 ug/dL 250-450 ytjq=009) IRON % SATURATION (2) (BEAKER) (test iehm=3885) 15 % 20-55 [id number] 03:41:00 Test Item Value Reference Range Comments MAGNESIUM (BEAKER) (test owtf=623) 1.8 mg/dL 1.6-2.6 [id number] 03:41:00 Test Item Value Reference Range Comments PHOSPHORUS (BEAKER) (test pdoh=793) 4.2 mg/dL 2.3-4.7 BASIC METABOLIC [id number] 03:32:00 Test Item Value Reference Range Comments SODIUM (BEAKER) (test 138 meq/L 136-145 nzrw=480) POTASSIUM (BEAKER) (test 4.3 meq/L 3.5-5.1 mvqh=832) CHLORIDE (BEAKER) (test 110 meq/L 98-107 rnly=090) CO2 (BEAKER) (test 19 meq/L 22-29 stod=186) BLOOD UREA NITROGEN 45 mg/dL 7-21 (BEAKER) (test biub=982) CREATININE (BEAKER) (test 2.64 mg/dL 0.57-1.25 ncsy=236) GLUCOSE RANDOM (BEAKER) 116 mg/dL 70-105 (test cgum=345) CALCIUM (BEAKER) (test 8.8 mg/dL 8.4-10.2 vset=518) EGFR (BEAKER) (test 18 mL/min/1.73 sq m ESTIMATED GFR IS NOT ahtb=2310) ACCURATE CREATININE CLEARANCE IN PREDICTING GLOMERULAR FILTRATION RATE. ESTIMATED GFR IS NOT APPLICABLE FOR DIALYSIS PATIENTS. CREATINE KINASE (CK), TOTAL AND [id number] 03:32:00 Test Item Value Reference Range Comments CREATINE KINASE TOTAL (BEAKER) (test tjyb=604) 76 U/L 29-200 CREATINE KINASE-MB (BEAKER) (test jawy=410) 1.9 ng/mL 0.0-6.6 CREATINE KINASE-MB INDEX (BEAKER) (test vtdm=346) 2.5 % CK-MB Reference Range:<6.7 Normal6.7-10.0 Borderline>10.0 AbnormalTROPONIN [id number] 03:32:00 Test Item Value Reference Range Comments TROPONIN I (BEAKER) (test xzpl=880) < ng/mL 0.00-0.03 Troponin I (TnI) levels [...] acidosis, acute neurological disease, and persistent tachyarrhythmia.POCT-GLUCOSE [id number] 01:15:00 Test Item Value Reference Range Comments POC-GLUCOSE METER (BEAKER) 157 mg/dL 70-110 TESTED AT [facility] [address] [place] [address] (test wodk=5174) [facility] [address] RAD, CHEST, 1 VIEW, NON [id number] 00:10:00Reason for exam:->RLL PNAShould this be performed [...] MDReport Verified Date/Time: 09/20/2017 00:10:56 Reading Location: [address] Ortho Consult Reading Room
--- NOTE | 2018-05-27 17:13 | ER ---
Nurse's Notes [facility] Name: Wendy Ziegler Age: 63 yrs Sex: Female : 1955 Arrival Date: 05/27/2018 Time: 16:34 Bed 24 Private MD: Wellington Beal Diagnosis: Zoster [herpes zoster] Presentation: 05/27 16:43 Presenting complaint: Patient states: "I've had a rash on my right breast and the right aa5 side of my back since but it didn't start blistering until yesterday and it's painful". Transition of care: patient was not received from another setting of care. Onset of symptoms was April 2018. Risk Assessment: Do you want to hurt yourself or someone else? Patient reports no desire to harm self or others. Initial Sepsis Screen: Does the patient meet any 2 criteria? No. Patient's initial sepsis screen is negative. Does the patient have a suspected source of infection? No. Patient's initial sepsis screen is negative. Care prior to arrival: None. 16:43 Method Of Arrival: Wheelchair aa5 16:43 Acuity: SINDY 5 aa5 Historical: - Allergies: 16:46 Bactrim; aa5 16:46 Codeine; aa5 16:46 Remicade; aa5 16:46 victoza; aa5 - PMHx: 16:46 COPD; Diabetes - IDDM; Hyperlipidemia; Hypertension; Pneumonia; Rheumatoid Arthritis; aa5 - PSHx: 16:46 spleenectomy; Knee surgery; back surg; tens unit in back; aa5 - Immunization history:: Pneumococcal vaccine is up to date, Flu vaccine is up to date. - Social history:: Smoking status: Patient/guardian denies using tobacco. - Ebola Screening: : No symptoms or risks identified at this time. Screenin:47 Abuse screen: Denies threats or abuse. Denies injuries from another. Nutritional mg2 screening: No deficits noted. Tuberculosis screening: No symptoms or risk factors identified. Fall Risk None identified. Assessment: 16:47 General: Appears in no apparent distress. comfortable, Behavior is calm, cooperative. mg2 Pain: Complains of pain in chest and back Pain does not radiate. Pain currently is 6 out of 10 on a pain scale. Quality of pain is described as aching, Pain began gradually, few days Is intermittent. Neuro: Level of Consciousness is awake, alert, obeys commands, Oriented to person, place, time, situation. Cardiovascular: Capillary refill < 3 seconds Patient's skin is warm and dry. Respiratory: Airway is patent Respiratory effort is even, unlabored, Respiratory pattern is regular, symmetrical. GI: No signs and/or symptoms were reported involving the gastrointestinal system. : No signs and/or symptoms were reported regarding the genitourinary system. EENT: No signs and/or symptoms were reported regarding the EENT system. Derm: Skin is intact, Skin is pink, warm \\T\\ dry. normal, Rash noted that is red, urticaria. Musculoskeletal: No signs and/or symptoms reported regarding the musculoskeletal system. Vital Signs: 16:46 BP 147 / 72; Pulse 83; Resp 18 S; Temp 98.4(TE); Pulse Ox 97% on R/A; Weight 114.31 kg aa5 (R); Height 5 ft. 6 in. (167.64 cm) (R); Pain 2/10; 16:55 BP 135 / 72; Pulse 78; Resp 18; Pulse Ox 100% ; Pain 3/10; mg2 16:46 Body Mass Index 40.67 (114.31 kg, 167.64 cm) aa5 ED Course: 16:34 Patient arrived in ED. mr 16:34 Wellington Beal MD is Private Physician. mr 16:38 Arm band placed on Patient placed in an exam room, on a stretcher. aa5 16:45 Triage completed. aa5 16:46 Henrry Paige, HONG is Primary Nurse. mg2 16:47 [facility]ud[facility] Winslow [facility]C [facility]. kb 16:47 Conner Kim MD is Attending Physician. kb 16:50 Patient has correct armband on for positive identification. Call light in reach. Side mg2 rails up X 1. Door closed. Warm blanket given. 16:52 Wellington Beal MD is Referral Physician. kb 17:10 No provider procedures requiring assistance completed. Patient did not have IV access mg2 during this emergency room visit. Administered Medications: No medications were administered Outcome: 16:52 Discharge ordered by . kb 17:11 Discharged to home via wheelchair. mg2 17:11 Condition: stable 17:11 Discharge instructions given to patient, family, Instructed on discharge instructions, follow up and referral plans. medication usage, Demonstrated understanding of instructions, follow-up care, medications, Prescriptions given X 1. 17:12 Patient left the ED. mg2 Signatures: Yudelka Winslow FNP-C FNP-Ckb Rivera, Maria mr SerranoSona, RN RN aa5 Henrry Paige RN RN mg2 Corrections: (The following items were deleted from the chart) 17:12 16:30 BP 135 / 72; Pulse 78bpm; Resp 18bpm; Pulse Ox 100%; Pain 3/10; mg2 mg2
--- NOTE | 2018-05-27 17:14 | EDPHYS ---
Physician Documentation [facility] Name: Wendy Ziegler Age: 63 yrs Sex: Female : 1955 Arrival Date: 05/27/2018 Time: 16:34 Bed 24 Private MD: Wellington Beal ED Physician Conner Kim HPI: 05/27 16:53 This 63 yrs old Female presents to ER via Wheelchair with complaints of Rash. kb 16:53 The patient's rash thought to be caused by an unknown cause. The rash is located on the kb right subscapular area and anterior aspect of right upper chest. The rash can be described as vesicular. Onset: The symptoms/episode began/occurred 5 day(s) ago, burning started 5 days ago, vesicles developed last night. Associated signs and symptoms: Pertinent positives: burning sensation, Pain. Severity of symptoms: At their worst the symptoms were moderate in the emergency department the symptoms are unchanged. The patient has not experienced similar symptoms in the past. The patient has been recently seen at the [facility] Emergency Department, this week, for similar complaints labs were performed, X-rays were performed. Historical: - Allergies: 16:46 Bactrim; aa5 16:46 Codeine; aa5 16:46 Remicade; aa5 16:46 victoza; aa5 - PMHx: 16:46 COPD; Diabetes - IDDM; Hyperlipidemia; Hypertension; Pneumonia; Rheumatoid Arthritis; aa5 - PSHx: 16:46 spleenectomy; Knee surgery; back surg; tens unit in back; aa5 - Immunization history:: Pneumococcal vaccine is up to date, Flu vaccine is up to date. - Social history:: Smoking status: Patient/guardian denies using tobacco. - Ebola Screening: : No symptoms or risks identified at this time. ROS: 16:53 Constitutional: Negative for fever, chills, and weight loss, Cardiovascular: Negative kb for chest pain, palpitations, and edema, Respiratory: Negative for shortness of breath, cough, wheezing, and pleuritic chest pain, Abdomen/GI: Negative for abdominal pain, nausea, vomiting, diarrhea, and constipation, Back: Negative for injury and pain, MS/Extremity: Negative for injury and deformity, Neuro: Negative for headache, weakness, numbness, tingling, and seizure. 16:53 Skin: Positive for rash, of the anterior aspect of right upper chest and right subscapular area. Exam: 16:53 Constitutional: This is a well developed, well nourished patient who is awake, alert, kb and in no acute distress. Head/Face: Normocephalic, atraumatic. Chest/axilla: Normal chest wall appearance and motion. Nontender with no deformity. No lesions are appreciated. Cardiovascular: Regular rate and rhythm with a normal S1 and S2. No gallops, murmurs, or rubs. Normal PMI, no JVD. No pulse deficits. Respiratory: Lungs have equal breath sounds bilaterally, clear to auscultation and percussion. No rales, rhonchi or wheezes noted. No increased work of breathing, no retractions or nasal flaring. Abdomen/GI: Soft, non-tender, with normal bowel sounds. No distension or tympany. No guarding or rebound. No evidence of tenderness throughout. MS/ Extremity: Pulses equal, no cyanosis. Neurovascular intact. Full, normal range of motion. Neuro: Awake and alert, GCS 15, oriented to person, place, time, and situation. Cranial nerves II-XII grossly intact. Motor strength 5/5 in all extremities. Sensory grossly intact. Cerebellar exam normal. Normal gait. 16:53 Skin: consistent with zoster, on the right subscapular area and anterior aspect of right upper chest. Vital Signs: 16:46 BP 147 / 72; Pulse 83; Resp 18 S; Temp 98.4(TE); Pulse Ox 97% on R/A; Weight 114.31 kg aa5 (R); Height 5 ft. 6 in. (167.64 cm) (R); Pain 2/10; 16:55 BP 135 / 72; Pulse 78; Resp 18; Pulse Ox 100% ; Pain 3/10; mg2 16:46 Body Mass Index 40.67 (114.31 kg, 167.64 cm) aa5 MDM: 16:47 Patient medically screened. kb 17:03 Data reviewed: vital signs, nurses notes. Data interpreted: Pulse oximetry: on room air kb is 97 %. Interpretation: normal. Counseling: I had a detailed discussion with the patient and/or guardian regarding: the historical points, exam findings, and any diagnostic results supporting the discharge/admit diagnosis, the need for outpatient follow up, a family practitioner, to return to the emergency department if symptoms worsen or persist or if there are any questions or concerns that arise at home. Administered Medications: No medications were administered Disposition: 05/27/18 16:52 Discharged to Home. Impression: Zoster [herpes zoster]. - Condition is Stable. - Discharge Instructions: Shingles. - Prescriptions for Valtrex 1 g Oral Tablet - take 1 tablet by ORAL route every 8 hours for 7 days; 21 tablet. - Medication Reconciliation Form, Thank You Letter, Antibiotic Education, Prescription Opioid Use form. - Follow up: Emergency Department; When: As needed; Reason: Worsening of condition. Follow up: Wellington Beal MD; When: 2 - 3 days; Reason: Recheck today's complaints, Continuance of care, Re-evaluation by your physician. Addendum: 05/31/2018 07:10 Co-signature as Attending Physician, Conner Kim MD I agree with the assessment and k dr plan of care. Signatures: Yudelka Winslow, SCREEN CUTTER AND TRIMMER-C SCREEN CUTTER AND TRIMMER-Ckb Conner Kim MD MD kdr Sona Serrano, RN RN aa5 Henrry Paige, HONG RN mg2 Corrections: (The following items were deleted from the chart) 05/27 17:12 16:52 05/27/2018 16:52 Discharged to Home. Impression: Zoster [herpes zoster]. mg2 Condition is Stable. Forms are Medication Reconciliation Form, Thank You Letter, Antibiotic Education, Prescription Opioid Use. Follow up: Emergency Department; When: As needed; Reason: Worsening of condition. Follow up: Wellington Beal; When: 2 - 3 days; Reason: Recheck today's complaints, Continuance of care, Re-evaluation by your physician. kb
[2018-05-27 17:39] VITALS: TEMP 98.4
[2018-05-27 17:41] VITALS: BP 135/72; O2SAT 100
== END 2018-05-27 17:12 | disposition home or self-care (01) ==
LOC: ER 16:31
DX: B02.9 Zoster without complications (principal); I10 Essential (primary) hypertension; Z88.1 Allergy status to other antibiotic agents; Z88.5 Allergy status to narcotic agent; Z88.8 Allergy status to other drugs, medicaments and biological substances
CPT/HCPCS: 99282

== ENCOUNTER 2018-08-08 05:53 | Observation (INO) | payer BC ==
--- OUTSIDE RECORDS SUMMARY | 2018-08-08 05:57 | XMS REPORT | Clinical Summary ---
:1955 Author Organization [facility] Address [address] [place] [address] Care Team Providers Name Role Phone Paulette Primary Care Provider Allergies Active Allergy Reactions Severity Noted Date Comments Sulfamethoxazole-Trimethopr Nausea And Vomiting, High 09/19/2017 im Swelling Codeine Nausea And Vomiting 09/19/2017 Infliximab Hives, Itching High 09/19/2017 Liraglutide Other (See Comments) High 09/19/2017 Leg cramping Medications Medication Sig Dispensed Refills Start End Status Date Date aspirin 81 MG EC Take 81 mg by 0 Active tablet mouth daily. amLODIPine (NORVASC) Take 10 mg by 0 Active 10 MG tablet mouth daily. calcitriol Take 0.25 mcg by 0 Active (ROCALTROL) 0.25 MCG mouth daily. capsule loratadine (CLARITIN) Take 10 mg by 0 Active 10 mg tablet mouth daily. DULoxetine (CYMBALTA) Take 60 mg by 0 Active 60 MG capsule mouth daily. mometasone-formoterol Inhale 2 puffs by 0 Active (DULERA) 200-5 mouth via inhaler mcg/actuation inhaler 2 (two) times daily. omega 8-gtb-epx-fish Take 1,600 mg by 0 Active oil (FISH OIL) mouth daily. 1,600-500-800 mg/5 mL Liqd multivitamins Take 1 tablet by 0 Active (FOLBEE) 2.5-25-1 mg mouth daily. Tab tablet hydroxychloroquine Take 200 mg by 0 Active (PLAQUENIL) 200 mg mouth 2 (two) tablet times daily. ipratropium 2 sprays by Nasal 0 Active (ATROVENT) 0.06 % route 2 (two) 0.06% nasal spray times daily. leflunomide (ARAVA) Take 20 mg by 0 Active 20 MG tablet mouth daily. ABATACEPT (ORENCIA Inject 1,000 mg 0 Active SUBQ) subcutaneously every 30 (thirty) days. pravastatin Take 10 mg by 0 Active (PRAVACHOL) 10 MG mouth daily. tablet cycloSPORINE Place 1 drop into 0 Active (RESTASIS) 0.05 % both eyes every ophthalmic emulsion 12 (twelve) hours. ascorbic acid, Take 1,000 mg by 0 Active vitamin C, (VITAMIN mouth daily. C) 1000 MG tablet cholecalciferol Take 1,000 Units 0 Active (VITAMIN D3) 400 unit by mouth 2 (two) Tab tablet times daily. insulin lispro Inject 5 Units 10 mL 0 09/28/19 Active (HUMALOG) 100 unit/mL subcutaneously 3 18 injection (three) times daily before meals. insulin glargine Inject 20 Units 10 mL 0 09/28/19 Active (LANTUS) 100 unit/mL subcutaneously 18 injection nightly Use as directed . famotidine (PEPCID) Take 1 tablet (20 90 tablet 3 09/28/19 Active 20 MG tablet mg total) by 18 019 mouth daily. carvedilol (COREG) Take 3 tablets 540 tablet 3 09/28/19 Active 12.5 MG tablet (37.5 mg total) 18 019 by mouth 2 (two) times daily. sodium bicarbonate Take 2 tablets 540 tablet 3 09/28/19 Active 650 MG tablet (1,300 mg total) 18 019 by mouth 3 (three) times daily. pravastatin Take 1 tablet (40 90 tablet 3 09/28/19 Active (PRAVACHOL) 40 MG mg total) by 18 019 tablet mouth nightly. hydrALAZINE Take 1 tablet 270 tablet 3 09/28/19 Active (APRESOLINE) 100 MG (100 mg total) by 18 019 tablet mouth every 8 (eight) hours. furosemide (LASIX) 40 Take 1 tablet (40 180 tablet 3 09/28/19 Active MG tablet mg total) by 18 019 mouth 2 (two) times daily. carvedilol (COREG) 25 Take 25 mg by 0 09/28/2 Discontinued MG tablet mouth 2 (two) 018 times daily with breakfast and dinner. cloNIDine HCl Take 0.1 mg by 0 Discontinued (CATAPRES) 0.1 MG mouth 3 (three) 018 tablet times daily. insulin glargine Inject 48 Units 0 Discontinued (LANTUS) 100 unit/mL subcutaneously 018 injection nightly Use as directed . losartan (COZAAR) 50 Take 50 mg by 0 Discontinued MG tablet mouth 3 (three) 018 times daily. insulin lispro Inject 14 Units 0 Discontinued (HUMALOG) 100 unit/mL subcutaneously 3 018 injection (three) times daily before meals. spironolactone Take 25 mg by 0 Discontinued (ALDACTONE) 25 MG mouth daily. 018 tablet ezetimibe (ZETIA) 10 Take 10 mg by 0 Discontinued mg tablet mouth daily. 018 pravastatin Take 1 tablet (40 90 tablet 3 09/28/19 Discontinued (PRAVACHOL) 40 MG mg total) by 18 018 tablet mouth nightly. sodium bicarbonate Take 2 tablets 540 tablet 3 09/28/19 Discontinued 650 MG tablet (1,300 mg total) 18 018 by mouth 3 (three) times daily. hydrALAZINE Take 1 tablet 270 tablet 3 09/28/19 Discontinued (APRESOLINE) 100 MG (100 mg total) by 18 018 tablet mouth every 8 (eight) hours. furosemide (LASIX) 40 Take 1 tablet (40 180 tablet 3 09/28/19 Discontinued MG tablet mg total) by 18 018 mouth 2 (two) times daily. colchicine (COLCRYS) Take 0.5 tablets 2.5 tablet 0 09/29/19 Discontinued 0.6 mg tablet (0.3 mg total) by 18 018 mouth daily for 5 days. carvedilol (COREG) Take 3 tablets 540 tablet 3 09/28/19 Discontinued 12.5 MG tablet (37.5 mg total) 18 018 by mouth 2 (two) times daily. colchicine (COLCRYS) Take 0.5 tablets 2.5 tablet 0 09/29/19 0.6 mg tablet (0.3 mg total) by 18 018 mouth daily for 5 days. Active Problems Problem Noted Date Acute pericarditis 09/21/2017 LBBB (left bundle branch block) 09/20/2017 Pericardial effusion 09/20/2017 Recurrent right pleural effusion 09/20/2017 Uncontrolled type 2 diabetes mellitus with complication, with long-term 2016 current use of insulin CKD (chronic kidney disease) stage 4, GFR 15-29 ml/min 09/20/2017 Hypoxemia 09/20/2017 Pneumonia of both lungs due to infectious organism 09/19/2017 Encounters Date Type Specialty Care Team Description 09/20/2017 Orders Only General Internal Medicine 09/19/2017 - [facility] General Internal Dylanghassan Aldojaneth Pneumonia of right lower lobe due to infectious organism (HCC); 09/28/2017 Encounter Medicine MD Zbigniew Hypoxemia; Klaus LBBB (left bundle branch block); Eduardo Chest pain, unspecified type; MD Taty Pericardial effusion; Jan Harris MD Acute diastolic heart failure (HCC); Acute renal failure superimposed on stage 3 chronic kidney disease, unspecified acute renal failure type (HCC); Uncontrolled type 2 diabetes mellitus with complication, with long- term current use of insulin (HCC); Pleural effusion; Essential hypertension; Acute hypoxemic respiratory failure (HCC); Pleuropericarditis; Pneumonia of both lower lobes due to infectious organism (HCC); Immunosuppressed status (HCC); Acute viral pericarditis; Acute infective pericarditis, unspecified infectious etiology; CKD (chronic kidney disease) stage 4, GFR 15-29 ml/min (HCC); JAVED (acute kidney injury) (HCC) after 08/07/2017 Family History Medical History Relation Name Comments [...] Assigned at Date Recorded Not on file Job Start Date Occupation Industry Not on file Not on file Not on file Travel History Travel Start Travel End No recent travel history available. Last Filed Vital Signs Vital Sign Reading Time Taken Blood Pressure 118/58 09/28/2017 3:44 PM [facility] Pulse 88 09/28/2017 3:44 PM [facility] Temperature 36.2 C (97.2 F) 09/28/2017 3:44 PM [facility] Respiratory Rate 18 09/28/2017 3:44 PM [facility] Oxygen Saturation 94% 09/28/2017 3:44 PM [facility] Inhaled Oxygen Concentration 21% 09/26/2017 8:26 AM [facility] Weight 123 kg (271 lb 4 oz) 09/27/2017 6:00 AM [facility] Height 168 cm (5' 6.14") 09/19/2017 8:44 PM [facility] Body Mass Index 43.59 09/27/2017 6:00 AM [facility] Plan of Treatment Not on file Procedures Procedure Name Priority Date/Time Associated Comments Diagnosis REPORT OF PROCEDURE - 09/29/2017 1:53 ENDOSCOPY SCAN PM [facility] RHYTHM STRIP - SCAN 09/29/2017 1:53 PM [facility] ECHOCARDIOGRAM REPORT - 09/28/2017 1:50 SCAN PM [facility] POCT-GLUCOSE METER Routine 09/28/2017 11:52 Results for this AM [facility] procedure are in the results section. POCT-GLUCOSE METER Routine 09/28/2017 8:55 Results for this AM [facility] procedure are in the results section. MAGNESIUM Routine 09/28/2017 6:09 Results for this AM [facility] procedure are in the results section. BASIC METABOLIC PANEL Routine 09/28/2017 6:09 Results for this (7) AM [facility] procedure are in the results section. MISCELLANEOUS LAB ORDER Routine 09/28/2017 6:09 AM [facility] POCT-GLUCOSE METER Routine 09/27/2017 9:10 Results for this PM [facility] procedure are in the results section. PROTEIN, BODY FLUID Routine 09/27/2017 7:36 Results for this PM [facility] procedure are in the results section. LACTATE DEHYDROGENASE Routine 09/27/2017 7:36 Results for this (LDH), BODY FLUID PM [facility] procedure are in the results section. BODY FLUID CULTURE + Routine 09/27/2017 7:36 Results for this GRAM STAIN PM [facility] procedure are in the results section. BODY FLUID CELL COUNT Routine 09/27/2017 7:36 Results for this WITH DIFFERENTIAL PM [facility] procedure are in the results section. LIMITED 2D ELADIO 09/27/2017 6:59 Results for this ECHOCARDIOGRAM PM [facility] procedure are in the results section. POCT-GLUCOSE METER Routine 09/27/2017 5:11 Results for this PM [facility] procedure are in the results section. US THORACENTESIS Routine 09/27/2017 4:15 Results for this PM [facility] procedure are in the results section. XR CHEST 1 VIEW STAT 09/27/2017 4:10 Results for this PORTABLE/BEDSIDE PM [facility] procedure are in the results section. XR CHEST 1 VIEW Routine 09/27/2017 12:49 Results for this PORTABLE/BEDSIDE PM [facility] procedure are in the results section. POCT-GLUCOSE METER Routine 09/27/2017 12:29 Results for this PM [facility] procedure are in the results section. POCT-GLUCOSE METER Routine 09/27/2017 7:56 Results for this AM [facility] procedure are in the results section. VITAMIN B12 AND FOLATE Routine 09/27/2017 4:54 Results for this AM [facility] procedure are in the results section. MAGNESIUM Routine 09/27/2017 4:54 Results for this AM [facility] procedure are in the results section. BASIC METABOLIC PANEL Routine 09/27/2017 4:54 Results for this (7) AM [facility] procedure are in the results section. POCT-GLUCOSE METER Routine 09/26/2017 9:33 Results for this PM [facility] procedure are in the results section. POCT-GLUCOSE METER Routine 09/26/2017 6:11 Results for this PM [facility] procedure are in the results section. ECHOCARDIOGRAM REPORT - 09/26/2017 4:59 SCAN PM [facility] POCT-GLUCOSE METER Routine 09/26/2017 1:49 Results for this PM [facility] procedure are in the results section. 2D ECHO W/ DOPPLER ELADIO 09/26/2017 11:38 Results for this (CW/PW/COLOR) AM [facility] procedure are in the results section. PT/APTT STAT 09/26/2017 11:10 Results for this AM [facility] procedure are in the results section. PLATELET COUNT STAT 09/26/2017 11:10 Results for this AM [facility] procedure are in the results section. PROTEIN, TOTAL Routine 09/26/2017 11:10 Results for this AM [facility] procedure are in the results section. LACTATE DEHYDROGENASE Routine 09/26/2017 11:10 Results for this (LDH) AM [facility] procedure are in the results section. POCT-GLUCOSE METER Routine 09/26/2017 8:26 Results for this AM [facility] procedure are in the results section. MAGNESIUM Routine 09/26/2017 4:48 Results for this AM [facility] procedure are in the results section. BASIC METABOLIC PANEL Routine 09/26/2017 4:48 Results for this (7) AM [facility] procedure are in the results section. POCT-GLUCOSE METER Routine 09/25/2017 9:10 Results for this PM [facility] procedure are in the results section. XR CHEST 2 VIEWS Routine 09/25/2017 6:37 Results for this PM [facility] procedure are in the results section. POCT-GLUCOSE METER Routine 09/25/2017 5:18 Results for this PM [facility] procedure are in the results section. POCT-GLUCOSE METER Routine 09/25/2017 11:49 Results for this AM [facility] procedure are in the results section. POCT-GLUCOSE METER Routine 09/25/2017 7:18 Results for this AM [facility] procedure are in the results section. MAGNESIUM Routine 09/25/2017 5:47 Results for this AM [facility] procedure are in the results section. BASIC METABOLIC PANEL Routine 09/25/2017 5:47 Results for this (7) AM [facility] procedure are in the results section. POCT-GLUCOSE METER Routine 09/24/2017 9:13 Results for this PM [facility] procedure are in the results section. POCT-GLUCOSE METER Routine 09/24/2017 6:47 Results for this PM [facility] procedure are in the results section. POCT-GLUCOSE METER Routine 09/24/2017 4:41 Results for this PM [facility] procedure are in the results section. CREATININE, RANDOM Routine 09/24/2017 4:18 Results for this URINE PM [facility] procedure are in the results section. PROTEIN, RANDOM URINE Routine 09/24/2017 4:18 Results for this PM [facility] procedure are in the results section. NM CARDIAC PET STAT 09/24/2017 2:57 Results for this PERFUSION REST AND/OR PM [facility] procedure are in STRESS the results section. TREADMILL Routine 09/24/2017 2:52 Results for this TOLERANCE(NON-NUCLEAR PM [facility] procedure are in TREADMILL) the results section. POCT-GLUCOSE METER Routine 09/24/2017 10:13 Results for this AM [facility] procedure are in the results section. POCT-GLUCOSE METER Routine 09/24/2017 7:23 Results for this AM [facility] procedure are in the results section. MAGNESIUM Routine 09/24/2017 4:21 Results for this AM [facility] procedure are in the results section. BASIC METABOLIC PANEL Routine 09/24/2017 4:21 Results for this (7) AM [facility] procedure are in the results section. VANCOMYCIN LEVEL, Routine 09/24/2017 4:21 Results for this RANDOM AM [facility] procedure are in the results section. US RENAL COMPLETE Routine 09/23/2017 10:02 Results for this PM [facility] procedure are in the results section. POCT-GLUCOSE METER Routine 09/23/2017 9:17 Results for this PM [facility] procedure are in the results section. POCT-GLUCOSE METER Routine 09/23/2017 4:57 Results for this PM [facility] procedure are in the results section. CREATININE, RANDOM Routine 09/23/2017 12:14 Results for this URINE PM [facility] procedure are in the results section. SODIUM, RANDOM URINE Routine 09/23/2017 12:14 Results for this PM [facility] procedure are in the results section. URINALYSIS W/ REFLEX Routine 09/23/2017 12:14 Results for this URINE CULTURE PM [facility] procedure are in the results section. POCT-GLUCOSE METER Routine 09/23/2017 11:33 Results for this AM [facility] procedure are in the results section. POCT-GLUCOSE METER Routine 09/23/2017 7:12 Results for this AM [facility] procedure are in the results section. CBC W/PLT COUNT & AUTO Routine 09/23/2017 5:37 Results for this DIFFERENTIAL AM [facility] procedure are in the results section. CBC W/PLT COUNT & AUTO Routine 09/23/2017 5:37 Results for this DIFFERENTIAL AM [facility] procedure are in the results section. VANCOMYCIN LEVEL, Routine 09/23/2017 5:37 Results for this RANDOM AM [facility] procedure are in the results section. MAGNESIUM Routine 09/23/2017 5:37 Results for this AM [facility] procedure are in the results section. BASIC METABOLIC PANEL Routine 09/23/2017 5:37 Results for this (7) AM [facility] procedure are in the results section. POCT-GLUCOSE METER Routine 09/22/2017 9:06 Results for this PM [facility] procedure are in the results section. POCT-GLUCOSE METER Routine 09/22/2017 5:32 Results for this PM [facility] procedure are in the results section. POCT-GLUCOSE METER Routine 09/22/2017 11:50 Results for this AM [facility] procedure are in the results section. POCT-GLUCOSE METER Routine 09/22/2017 7:37 Results for this AM [facility] procedure are in the results section. CBC W/PLT COUNT & AUTO Routine 09/22/2017 4:44 Results for this DIFFERENTIAL AM [facility] procedure are in the results section. MYCOPLASMA PNEUMONIAE Routine 09/22/2017 4:44 Results for this ANTIBODY, IGM AM [facility] procedure are in the results section. MYCOPLASMA PNEUMONIAE Routine 09/22/2017 4:44 Results for this ANTIBODY, IGG AM [facility] procedure are in the results section. CMV PCR, QUANTITATIVE Routine 09/22/2017 4:44 Results for this AM [facility] procedure are in the results section. VANCOMYCIN LEVEL, Routine 09/22/2017 4:44 Results for this RANDOM AM [facility] procedure are in the results section. MAGNESIUM Routine 09/22/2017 4:44 Results for this AM [facility] procedure are in the results section. BASIC METABOLIC PANEL Routine 09/22/2017 4:44 Results for this (7) AM [facility] procedure are in the results section. CBC W/PLT COUNT & AUTO Routine 09/22/2017 4:44 Results for this DIFFERENTIAL AM [facility] procedure are in the results section. POCT-GLUCOSE METER Routine 09/21/2017 9:07 Results for this PM [facility] procedure are in the results section. POCT-GLUCOSE METER Routine 09/21/2017 4:53 Results for this PM [facility] procedure are in the results section. BRONCHIAL CULTURE + STAT 09/21/2017 12:52 Results for this GRAM STAIN PM [facility] procedure are in the results section. SPIN/CONCENTRATION Routine 09/21/2017 12:49 Results for this CHARGE [facility] procedure are in the results section. FUNGUS CULTURE + SMEAR STAT 09/21/2017 12:49 Results for this PM [facility] procedure are in the results section. AFB CULTURE + SMEAR STAT 09/21/2017 12:49 Results for this PM [facility] procedure are in the results section. POCT-GLUCOSE METER Routine 09/21/2017 12:28 Results for this PM [facility] procedure are in the results section. BLOOD GAS, ARTERIAL STAT 09/21/2017 11:02 Results for this AM [facility] procedure are in the results section. XR CHEST 1 VIEW STAT 09/21/2017 9:15 Results for this PORTABLE/BEDSIDE AM [facility] procedure are in the results section. POCT-GLUCOSE METER Routine 09/21/2017 8:38 Results for this AM [facility] procedure are in the results section. CBC W/PLT COUNT & AUTO Routine 09/21/2017 5:18 Results for this DIFFERENTIAL AM [facility] procedure are in the results section. MAGNESIUM Routine 09/21/2017 5:18 Results for this AM [facility] procedure are in the results section. CBC W/PLT COUNT & AUTO Routine 09/21/2017 5:18 Results for this DIFFERENTIAL AM [facility] procedure are in the results section. BASIC METABOLIC PANEL STAT 09/21/2017 5:18 Results for this (7) [facility] procedure are in the results section. XR CHEST 1 VIEW STAT 09/21/2017 3:34 Results for this PORTABLE/BEDSIDE AM [facility] procedure are in the results section. POCT-GLUCOSE METER Routine 09/20/2017 10:11 Results for this PM [facility] procedure are in the results section. ECHOCARDIOGRAM REPORT - 09/20/2017 5:15 SCAN PM [facility] POCT-GLUCOSE METER Routine 09/20/2017 5:09 Results for this PM [facility] procedure are in the results section. LEGIONELLA URINE Routine 09/20/2017 3:30 Results for this ANTIGEN [facility] procedure are in the results section. 2D ECHO MODE W/O ELADIO 09/20/2017 1:08 Results for this DOPPLER PM [facility] procedure are in the results section. POCT-GLUCOSE METER Routine 09/20/2017 11:39 Results for this AM [facility] procedure are in the results section. PROCALCITONIN Routine 09/20/2017 10:04 Results for this AM [facility] procedure are in the results section. POCT-GLUCOSE METER Routine 09/20/2017 9:11 Results for this AM [facility] procedure are in the results section. POCT-GLUCOSE METER Routine 09/20/2017 8:26 Results for this AM [facility] procedure are in the results section. LACTIC ACID, VENOUS, Routine 09/20/2017 8:04 Results for this WHOLE BLOOD AM [facility] procedure are in the results section. HEMOGLOBIN A1C Routine 09/20/2017 8:04 Results for this AM [facility] procedure are in the results section. B-TYPE NATRIURETIC Routine 09/20/2017 8:04 Results for this FACTOR (BNP) [facility] procedure are in the results section. STREP PNEUMONIAE Routine 09/20/2017 6:09 Results for this ANTIGEN [facility] procedure are in the results section. (MANUAL DIFFERENTIAL) Routine 09/20/2017 3:01 Results for this AM [facility] procedure are in the results section. CBC W/PLT COUNT & AUTO Routine 09/20/2017 3:01 Results for this DIFFERENTIAL [facility] procedure are in the results section. PHOSPHORUS Routine 09/20/2017 3:01 Results for this AM [facility] procedure are in the results section. MAGNESIUM Routine 09/20/2017 3:01 Results for this AM [facility] procedure are in the results section. CREATINE KINASE (CK), STAT 09/20/2017 3:01 Results for this TOTAL AND MB [facility] procedure are in the results section. TROPONIN I STAT 09/20/2017 3:01 Results for this AM [facility] procedure are in the results section. FERRITIN Routine 09/20/2017 3:01 Results for this [facility] procedure are in the results section. IRON, TIBC, % SAT. Routine 09/20/2017 3:01 Results for this (WITHOUT FERRITIN) [facility] procedure are in the results section. BASIC METABOLIC PANEL Routine 09/20/2017 3:01 Results for this (7) [facility] procedure are in the results section. CBC W/PLT COUNT & AUTO Routine 09/20/2017 3:01 Results for this DIFFERENTIAL [facility] procedure are in the results section. RESPIRATORY PANEL [facility] ELADIO 09/20/2017 3:01 Results for this AM [facility] procedure are in the results section. ECG 12-LEAD Routine 09/20/2017 2:43 AM [facility] Procedure Note - Interface, External Ris In - 09/20/2017 2:52 AM [facility] Ventricular Rate 79 BPM Atrial Rate 79 BPM P-R Interval 192 ms QRS Duration 152 ms Q-T Interval 456 ms QTC Calculation(Bazett) 522 ms P Hans[place] 59 degrees R Hanska -15 degrees T [place] 87 degrees Normal sinus rhythm Left bundle branch block Abnormal ECG No previous ECGs available ECG 12-LEAD STAT 09/20/2017 2:43 AM [facility] POCT-GLUCOSE METER Routine 09/20/2017 12:49 AM [facility] BLOOD CULTURE Routine 09/20/2017 12:43 AM [facility] BLOOD CULTURE Routine 09/20/2017 12:43 AM [facility] XR CHEST 1 VIEW STAT 09/20/2017 12:04 AM [facility] Results for this procedure PORTABLE/BEDSIDE are in the results section. after 08/07/2017 Results EKG-SCANNED (09/29/2017 1:53 PM [facility]) Narrative Performed At RHYTHM STRIP - SCAN (09/29/2017 1:53 PM TIP [facility]) Narrative Performed At ECHOCARDIOGRAM REPORT - SCAN (09/28/2017 1:50 PM TIP [facility]) Narrative Performed At POC-Glucose meter (09/28/2017 11:52 AM TIP [facility]ER)Only the most recent of37 resultswithin the time period is included. POC-Glucose Meter 181 (H)Comment: TESTED AT 70 - 110 mg/dL [facility] [id number] [facility] [place] [id number] Specimen Blood Performing Organization Address City/State/Zipcode Phone Number [address] [address] [phone] [facility]ENTER [place] (Attention: Tameka Luna, [facility]) (09/28/2017 6:09 AM TIP [facility]ER) Scan Result [facility] Specimen Blood - Vein Narrative Performed At Performing Organization Address City/State/Zipcode Phone Number [facility] [address] [place], [place] Magnesium (09/28/2017 6:09 AM TIP [facility]ER)Only the most recent of9 resultswithin the time period is included. Magnesium 1.7 1.6 - 2.6 mg/dL [facility] Specimen Blood Performing Organization Address City/[facility]/Zipcode Phone Number [address] [address] CENTER Basic Metabolic Panel (09/28/2017 6:09 AM TIP [facility]ER)Only the most recent of9 resultswithin the time period is included. Sodium 135 (L) 136 - 145 meq/L [facility] Potassium 4.3 3.5 - 5.1 meq/L [facility] Chloride 106 98 - 107 meq/L [facility] CO2 19 (L) 22 - 29 meq/L [facility] BUN 49 (H) 7 - 21 mg/dL [facility] Creatinine 3.42 (H) 0.57 - 1.25 mg/dL [facility] Glucose 109 (H) 70 - 105 mg/dL [facility] Calcium 9.4 8.4 - 10.2 mg/dL [facility] EGFR 14Comment: ESTIMATED GFR IS mL/min/1.73 sq m [facility] NOT ACCURATE CREATININE [facility] CLEARANCE IN PREDICTING GLOMERULAR FILTRATION RATE. ESTIMATED GFR IS NOT APPLICABLE FOR DIALYSIS PATIENTS. Specimen Blood Performing Organization Address City/[facility]/Zipcode Phone Number [address] [address] [place] Body fluid culture + gram stain (09/27/2017 7:36 PM [facility]IP [facility]ER) Result No growth [facility] Gram Stain Result No White blood cells seen [facility] Gram Stain Result No organisms seen [facility] Specimen Body Fluid - Pleural, Right Performing Organization Address [facility] Phone Number [address] [address] [place] Body fluid cell count with differential (09/27/2017 7:36 PM TIP [facility]ER) Appearance Bloody (A) Clear [facility] Color Pita (A) Colorless, Straw [facility] SYSTEM RBCs 10,000 (H) <=1 /cu mm [facility] Adjusted WBC Count 3,032 (H) <=5 /cu mm [facility] Lining Cells 121 (H) <=1 /cu mm [facility] % Segs 32 % [facility] % Lymphs 6 % [facility] % Monos 60 % [facility] % Eos 2 % [facility] % Baso 0 % [facility] Container Body Fluid EDTA Tube [facility] Specimen Body Fluid - Pleural, Right Performing Organization Address [facility]/Zipcode Phone Number [address] [address] [place] Protein, body fluid (09/27/2017 7:36 PM TIP FIXER) Protein, Fluid 3.6 Light's criteria identifies [facility] effusions if one or more are MEDICAL CENTER present: Pleural to serum protein ratio of more than 0.5; Pleural to Serum LDH of more than 0.6; Pleural LDH of more than two third of upper serum reference limit g/dL Specimen Body Fluid - Pleural, Right Narrative Performed At [facility] Absence of reference range indicates that normals have not been defined. Assay performance has not been validated for this type of specimen. Performing Organization Address City/State/Zipcode Phone Number [address] [address] CENTER Lactate dehydrogenase (LDH), body fluid (09/27/2017 7:36 PM TIP FIXER) LDH, Fluid 234 Light's criteria identifies [facility] MEDICAL effusions if one or more are CENTER present: Pleural to serum protein ratio of more than 0.5; Pleural to serum LDH ratio of more than 0.6; Pleural LDH more than two third of upper serum reference limit U/L Specimen Body Fluid - Pleural, Right Narrative Performed At [facility] Absence of reference range indicates that normals have not been defined. Assay performance has not been validated for this type of specimen. Performing Organization Address City/State/Zipcode Phone Number [address] [phone] CENTER Limited 2D Echocardiogram (09/27/2017 6:59 PM TIP FIXER) Ejection Fraction [facility] ECHO HEARTLAB [facility] Narrative Performed At Transthoracic Echocardiography Report (TTE) [facility] ECHO HEARTLAB [facility] Demographics Patient Name MIKE ZIEGLERDate of Study 09/27/2017 [id number] GenderFemale Visit Number [id number] RaceUnknown [id number] m Number [id number] Number Date of Birth1955 Referring Physician Anastacio Rutledge MD Age62 year(s) [employer] Fre[employer] David Deal [facility] AnalysCarol Gotti MD RD Physician Procedure Type of Study TTE procedure:LIMITED [...] exam and Doppler exam to address study in dication. Th e left ventricle is chamber size (by vol index) is normal (female - LVED vol - 29-61ml/m2). Gl obal LV systolic function normal . LV EF by Feldman's method of disk assessment is no rmal (55-60%) . Left AtriumLA size is normal (16-34 ml/m2) . Right VentricleRV chamber size is normal . Right Atrium RA cavity size is mildly enlarged . Aortic Valve Mild AoV cusp thickening. Mitral Valve Mild MV leaflet thickening. Mi ld mitral annular calcification. Tricuspid ValveTV structure is normal. Pulmonic Valve Normal PV structure appears normal by available vi ews. AortaAortic root size (SInus of Valsalva diameter) is no rmal . PericardiumA small to moderate pericardial effusion is present . Th e pericardial effusion is circumferential . Th e pericardial effusion measures 0.89 posterior to th e left ventricle in the parasternal short axis vi ew at the mid level and 1.6cm around RA. Pe ricardial tamponade physiology is not evident . IVC/SVC/PA/PV/PleuralThe inferior vena cava is adequately visualized. Th e inferior vena cava size is normal . No echodensity is seen in the inferior vena cava. Chambers/Structures Left Ventricle LVIDd: 5.57 cm LVIDs: 3.35 cm LV Septum Diastolic: 1.23 cm LV PW Diastolic: 1.41 cmLV FS: 39.9 % LV PW Systolic: 1.33 cm LVEDV Feldman's:123.23 ml LVEDVI: 54 ml/m^2 LVESV Feldman's:51.51 mlLVESVI: 23 ml/m^2 LVEF Feldman's: 58.2 % LVOT Diameter: 2.28 cm Aorta Ao Root S of Page.: 1.88 cm Doppler/Quantitative Measurements LVOT LVOT Diameter: 2.28 cm LVOT Area: 4.08 cm^2 Procedure Note Interface, External Ris In - 09/28/2017 1:03 PM TIP FIXER Transthoracic Echocardiography Report (TTE) Demographics Patient Name MIKE ZIEGLER Date of Study 09/27/2017 Gender Female Visit Number [id number] Race Unknown Room Number 926 Number Date of 1955 Referring Physician Anastacio Rutledge MD Age 62 year(s) [address] Fre[employer] David Deal [facility] Research Professor Aure Tarango, Interpreting Zbigniew Fortune MD [facility] Physician Procedure Type of Study TTE [...] Diameter: 2.28 cm LVOT Area: 4.08 cm^2 Performing Organization Address City/State/[facility] Phone Number [facility]ART[facility] thoracentesis (09/27/2017 4:15 PM TIP FIXER) Narrative Performed At FINAL REPORT [facility] guided right thoracentesis Clinical History:Pleural effusion [...] manner.After the area is anesthetized, a 4 Luxembourgish catheter is advanced into the pleural space. [...] MD Report Verified Date/Time:09/27/2017 17:19:37 Reading Location: [address] Ultrasound Reading Room Procedure Note Interface, External Ris In - 09/27/2017 5:21 PM TIP FIXER FINAL REPORT Ultrasound guided right thoracentesis Clinical [...] After the area is anesthetized, a 4 Luxembourgish catheter is advanced into the pleural space. [...] Report Verified Date/Time: 09/27/2017 17:19:37 Reading Location: [facility] B1 [id number] Ultrasound Reading Room Performing Organization Address City/State/Zipcode Phone Number [facility] XR chest 1 view portable / bedside (09/27/2017 4:10 PM TIP FIXER)Only the most recent of5 resultswithin the time period is included. Narrative Performed At FINAL REPORT [facility] AP chest HISTORY: Thoracentesis COMPARISON: 09/27/2017 IMPRESSION: Intact skeleton. Cardiac silhouette mildly enlarged. Mild interstitial prominence, similar to previous. Right effusion appears decreased. No pneumothorax. Signed: Tari Lea MD Report Verified Date/Time:09/27/2017 16:21:56 Reading Location: [facility] Mammo Reading Room Procedure Note Interface, External Ris In - 09/27/2017 4:24 PM TIP FIXER FINAL REPORT AP chest HISTORY: Thoracentesis COMPARISON: 09/27/2017 IMPRESSION: Intact skeleton. Cardiac silhouette mildly enlarged. Mild interstitial prominence, similar to previous. Right effusion appears decreased. No pneumothorax. Signed: Tari Lea MD Report Verified Date/Time: 09/27/2017 16:21:56 Reading Location: [facility] Mammo Reading Room Performing Organization Address City/[facility] Phone Number [facility] Vitamin B12 and Folate (09/27/2017 4:54 AM TIP FIXER) Vitamin B12 >2000 (H) 213 - 816 pg/mL [facility] Folate 13.3 >=7.0 ng/mL [facility] Specimen Blood Performing Organization Address City/State/Zipcode Phone Number [facility] MEDICAL [address] [place] [phone] CENTER ECHOCARDIOGRAM REPORT - SCAN (09/26/2017 4:59 PM TIP FIXER) Narrative Performed At 2D Echo W/Doppler(CW/PW/Color) (09/26/2017 11:38 AM TIP FIXER) Ejection Fraction [facility] ECHO HEARTLAB [facility] Narrative Performed At Transthoracic Echocardiography Report (TTE) 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 Clinical History ASTHMA, COPD, OBESITY, LBBB, CAD, A.FIB. HTN, CHF, STROKE Contrast Medium: Definity. Amount - 2 ml Height: 66 inches Weight: 120.66 kg (266.01 lbs) BSA: 2.26 m^2 BMI: 42.93 kg/m^2 HR: 96 bpm BP: 146/65 mmHg Summary A eyazy-mz-qnmgrixk pericardial effusion is present . The pericardial effusion is circumferential . The pericardial effusion measures 2.8 cm by the right atrium in the subcostal view. NO signs of tamponacde LV endocardium is adequately visualized with IV ultrasound enhancing agent. The left ventricle is chamber size (by vol index) is mildly enlarged (female - LVED 62-70ml/m2). Cgdf-be-cfxxmmnr concentric LV hypertrophy. All of the LV [...] LV endocardium is adequately visualized with IV ul trasound enhancing agent. Th e left ventricle is chamber size (by vol index) is mildly enlarged (female - LVED 62-70ml/m2). Mi sm-ms-mjmzayxw concentric LV hypertrophy. Al l of the LV segments contract normally . Gl obal LV systolic function normal . LV EF by Feldman's method of disk assessment is no rmal (55-60%) . Th e LVEF was measured using Feldman's single plane me thod (apical 2 chamber) . Gr jillina 1 diastolic dysfunction (impaired relaxation an d low-normal LA pressure). Left AtriumLA is adequately visualized. LA size is normal (16-34 ml/m2) . Right VentricleRV chamber size is normal . Gl obal RV systolic function is hyperdynamic . Right Atrium RA size is normal. Aortic Valve Mild AoV cusp thickening. No evidence of aortic regurgitation. Mitral Valve Mild MV leaflet thickening. Tr starla mitral regurgitation. Tricuspid ValveTV structure is normal. A trace of tricuspid regurgitation. Un able to estimate peak systolic PA pressure; in adequate TR velocity signal. Pulmonic Valve Normal PV structure and function by limited views an d Doppler. AortaAortic root size (SInus of Valsalva diameter) is no rmal . PericardiumA ojyrz-hu-acimtrez pericardial effusion is present . Th e pericardial effusion is circumferential . Th e pericardial effusion measures 2.8 cm by the ri ght atrium in the subcostal view. IVC/SVC/PA/PV/PleuralThe inferior vena cava is adequately visualized. Th e inferior vena cava size is normal . Th e estimated RA pressure by IVC dynamics 0-5mmHg . IV C echo density is noted, consistent with possible th rombus . Chambers/Structures Left Atrium LA Volume: 50.98 ml LA Area: 18.51 cm^2 LA Vol. Index: 23 ml/m^2 Left Ventricle LVIDd: 4.82 cm LVIDs: 3.07 cm LV Septum Diastolic: 1.35 cm LV PW Diastolic: 1.4 cm LV FS: 36.3 % LVEDV Feldman's:143.81 ml LVESV Feldman's:62.75 mlLVEDVI: 64 ml/m^2 LVEF Feldman's: 56.4 %LVESV I: 28 ml/m^2 LVOT Diameter: 2.01 cm Aorta Ao Root S of Page.: 2.66 cm Doppler/Quantitative Measurements Mitral Valve MV Peak E-Wave: 0.88 m/sMV Peak A-Wave: 1.27 m/s E/A Ratio: 0.69 Peak Gradient: 3.1 mmHg MV Farhan. Peak: Tissue Doppler E' Lateral Velocity: 0.08 m/s A' Lateral Velocity: 0.15 m/s E/E': 11.07 Aortic Valve Peak Velocity: 1.97 m/sMean [...] External Ris In - 09/26/2017 4:07 PM TIP FIXER Transthoracic Echocardiography Report (TTE) Demographics Patient Name MIKE ZIEGLER Date of Study 09/26/2017 Gender Female Visit Number [id number] Race Unknown Room Number 926 Number Date of 1955 Referring Physician vickey Rutledge MD Age 62 year(s) [address] [employer] Tamir Gill [facility] Research Professor Aure Tarango, Interpreting Trevor Tristan MD [facility] Physician Procedure Type of Study TTE procedure:2DECHO W DOPPLER(CW/PW/COLOR) (ELADIO) Indications:Suspected Pericardial conditions. Clinical History ASTHMA, COPD, OBESITY, LBBB, CAD, A.FIB. HTN, CHF, STROKE Contrast Medium: Definity. Amount - 2 ml Height: 66 inches Weight: 120.66 kg (266.01 lbs) BSA: 2.26 m^2 BMI: 42.93 kg/m^2 HR: 96 bpm BP: 146/65 mmHg Summary A szhhn-fb-djmtksrz pericardial effusion is present . The pericardial effusion is circumferential . The pericardial effusion measures 2.8 cm by the right atrium in the subcostal view. NO signs of tamponacde LV endocardium is adequately visualized with IV ultrasound enhancing agent. The left ventricle is chamber size (by vol index) is mildly enlarged (female - LVED 62-70ml/m2). Saac-tj-gdxdatoa concentric LV hypertrophy. All of the LV [...] is mildly enlarged (female - LVED 62-70ml/m2). Dfxj-xx-vndzaymu concentric LV hypertrophy. All of the LV [...] Valsalva diameter) is normal . Pericardium A fybtv-kn-ybkyktfv pericardial effusion is present . The pericardial [...] CO: 7.61 l/min LVOT CI: 3.37 l/min/m^2 Performing Organization Address [facility]code Phone Number [facility]ART[facility] MKCKESSON CPACS PT/aPTT (09/26/2017 11:10 AM TIP FIXER) Protime 14.5 11.7 - 14.7 seconds [facility] INR 1.1 <=5.9 [facility] PTT 39.2 (H) 22.5 - 36.0 seconds [facility] Specimen Blood - Arm, Left Narrative Performed At [facility] RECOMMENDED COUMADIN/WARFARIN INR THERAPY RANGES STANDARD DOSE: 2.0 - 3.0 Includes: PROPHYLAXIS for venous thrombosis, systemic embolization; TREATMENT for venous thrombosis and/or pulmonary embolus. HIGH RISK: Target INR is 2.5-3.5 for patients with mechanical heart valves. Performing Organization Address [facility] Hospitalcode Phone Number [facility] [address] [place] [address] [phone] CENTER Platelet count (09/26/2017 11:10 AM TIP FIXER) Platelets 501 (H) 150 - 450 K/CU MM [facility] Specimen Blood - Arm, Left Performing Organization Address [facility] Phone Number [facility] [address] [place] [phone] CENTER Protein, total (09/26/2017 11:10 AM TIP FIXER) Protein, Total 6.1 6.0 - 8.3 gm/dL [facility] Specimen Blood - Arm, Left Performing Organization Address [facility] Hospitalcony Phone Number [address] [address] CENTER Lactate dehydrogenase (LDH) (09/26/2017 11:10 AM TIP FIXER) LDH 309 (H) 125 - 220 U/L [facility] Specimen Blood - Arm, Left Performing Organization Address [facility] Hospitalcony Phone Number [address] [address] CENTER XR chest 2 views (09/25/2017 6:37 PM TIP FIXER) Narrative Performed At FINAL REPORT [facility] Examination: Two view Chest X-ray. CLINICAL HISTORY: [...] MD Report Verified Date/Time:09/25/2017 19:38:01 Reading Location: [address] Reading Room Procedure Note Interface, External Ris In - 09/25/2017 7:40 PM TIP FIXER FINAL REPORT Examination: Two view Chest X-ray. [...] Report Verified Date/Time: 09/25/2017 19:38:01 Reading Location: [address] Reading Room Performing Organization Address City/State/Zipcode Phone Number [facility] Protein, random urine (09/24/2017 4:18 PM TIP FIXER) Protein, Urine 154 (H) 0 - 14 mg/dL [facility] Specimen Urine Performing Organization Address [facility] Hospitalcony Phone Number [address] [address] [phone] [place] Creatinine, random urine (09/24/2017 4:18 PM TIP FIXER)Only the most recent of2 resultswithin the time period is included. Creatinine, Ur 88.8 mg/dL [facility] Specimen Urine Narrative Performed At [facility] Reference Range: No Normals Performing Organization Address [facility] Hospitalcony Phone Number [address] [address] [place] NM myocardial perfusion PET (rest and stress) (09/24/2017 2:57 PM TIP FIXER) Narrative Performed At FINAL REPORT [facility] PROCEDURE:Rest/Stress MYOCARDIAL PERFUSION PET with regadenoson\\XA9\\ CPT CODE:67266 INDICATION:Chest pain, hypokinesis on echo HISTORY:Cardiac risk [...] Extracardiac tracer distribution is normal.6. No previous [facility] study for comparison. NONINVASIVE RISK STRATIFICATION: The above findings are considered low risk based on the following criteria: 1)Normal or small myocardial perfusion defect at rest or with stress (JACC. 2012;59(9):857-81.) Signed: Selvin Braswell MD Report Verified Date/Time:09/24/2017 16:36:36 Procedure Note Interface, External Ris In - 09/24/2017 4:38 PM TIP FIXER FINAL REPORT PROCEDURE: Rest/Stress MYOCARDIAL PERFUSION PET with regadenoson\\XA9\\ CPT CODE: 82958 INDICATION: Chest pain, hypokinesis on echo HISTORY: [...] tracer distribution is normal. 6. No previous [facility] study for comparison. NONINVASIVE RISK STRATIFICATION: The above findings are considered low risk based on the following criteria: 1)Normal or small myocardial perfusion defect at rest or with stress (JACC. 2012;59(9):857-10.) Signed: Selvin Braswell MD Report Verified Date/Time: 09/24/2017 16:36:36 Performing Organization Address City/State/Zipcode Phone Number [facility] Treadmill tolerance(Non-Nuclear Treadmill) (09/24/2017 2:52 PM TIP FIXER) Narrative Performed At Protocol Name Regadenosanjali [facility] Time In Exercise Phase 00:01:00 Max. Systolic [...] 11:19:37 AM Confirmed by MD CABRERA JORGE ([id number]) on 09/28/2017 4:43:16 PM Procedure Note Interface, External Ris In - 09/28/2017 4:43 PM TIP FIXER Protocol Name Regadenoson Time In Exercise Phase [...] 11:19:37 AM Confirmed by MD CABRERA JORGE ([id number]) on 09/28/2017 4:43:16 PM Performing Organization Address City/State/Zipcode Phone Number [facility] Vancomycin level, random (09/24/2017 4:21 AM TIP FIXER)Only the most recent of3 resultswithin the time period is included. Vancomycin Rm 16.6 ug/mL [facility] Specimen Blood Narrative Performed At [facility] Reference Range: No Normals Performing Organization Address City/State/Zipcode Phone Number [facility] [address] [place] [address] CENTER US renal complete (09/23/2017 10:02 PM TIP FIXER) Narrative Performed At FINAL REPORT [facility] U/S, RENAL, COMPLETE CLINICAL INDICATION:"Elevated creatinine" COMPARISON: [...] MD Report Verified Date/Time:09/23/2017 22:13:52 Reading Location: [address] Ortho Consult Reading Room Procedure Note Interface, External Ris In - 09/23/2017 10:16 PM TIP FIXER FINAL REPORT U/S, RENAL, COMPLETE CLINICAL INDICATION: [...] Report Verified Date/Time: 09/23/2017 22:13:52 Reading Location: [facility] [id number] Ortho Consult Reading Room Performing Organization Address City/State/Zipcode Phone Number [facility] Urinalysis w/Microscopic + Reflex to Culture (09/23/2017 12:14 PM TIP FIXER) Color, UA Yellow [facility] Clarity, UA Hazy [facility] Specific [place], UA 1.010 1.001 - 1.035 [facility] pH, UA 5.5 5.0 - 8.0 [facility] Protein, UA 100 mg/dL (A) Negative [facility] Glucose, UA 30 mg/dL (A) Negative [facility] Ketones, UA Negative Negative [facility] Bilirubin, UA Negative Negative [facility] Blood, UA Negative Negative [facility] Nitrite, UA Negative Negative [facility] Leukocytes, UA Negative Negative [facility] Urobilinogen, UA 0.2 0.2 - 1.0 mg/dL [facility] RBC, UA 0 /HPF [facility] WBC, UA 1 /HPF [facility] Bacteria, UA Occasional [facility] Mucus Rare [facility] Squam Epithel, UA 11 /HPF [facility] Yeast Rare [facility] Specimen Source [facility] Specimen Urine - Urine, Clean Catch Performing Organization Address City/[facility]/Zipcode Phone Number [address] [address] CENTER Sodium, random urine (09/23/2017 12:14 PM TIP FIXER) Sodium Urine 31 meq/L [facility] Specimen Urine - Urine, Clean Catch Narrative Performed At [facility] Reference Range: No Normals Performing Organization Address City/[facility]/Zipcode Phone Number [facility] [address] [phone] CENTER CBC with platelet count + automated diff (09/23/2017 5:37 AM TIP FIXER)Only the most recent of4 resultswithin the time period is included. WBC 12.7 (H) 3.5 - 10.5 K/L [facility] RBC 2.61 (L) 3.93 - 5.22 M/L [facility] Hemoglobin 7.9 (L) 11.2 - 15.7 GM/DL [facility] Hematocrit 24.7 (L) 34.1 - 44.9 % [facility] MCV 94.6 79.4 - 94.8 fL [facility] MCH 30.3 25.6 - 32.2 pg [facility] MCHC 32.0 (L) 32.2 - 35.5 GM/DL [facility] RDW 14.2 11.7 - 14.4 % [facility] Platelets 466 (H) 150 - 450 K/CU MM [facility] MPV 10.6 9.4 - 12.3 fL [facility] nRBC 0 0 - 0 /100 WBC [facility] % Neutros 64 % [facility] % Lymphs 17 % [facility] % Monos 11 % [facility] % Eos 7 % [facility] % Baso 0 % [facility] # Neutros 8.16 (H) 1.56 - 6.13 K/L [facility] # Lymphs 2.14 1.18 - 3.74 K/L [facility] # Monos 1.35 (H) 0.24 - 0.36 K/L [facility] # Eos 0.83 (H) 0.04 - 0.36 K/L [facility] # Baso 0.04 0.01 - 0.08 K/L [facility] Immature Granulocytes-Relative 2 (H) 0 - 1 % [facility] Specimen Blood Performing Organization Address City/State/Zipcode Phone Number [facility] [address] [place] [address] CENTER CMV PCR, quantitative (09/22/2017 4:44 AM TIP FIXER) CMV DNA Viral Load Negative or below the linear [facility] range of the assay (<375 [facility] copies/mL) Specimen Blood - Arm, Right Narrative Performed At Cytomegalovirus (CMV) infection can cause [facility] significant disease in immunosuppressed patients. However, it [...] threshold between 4,000 and 5,000 copies/mL is suggested.For treatment of primary CMV [...] and its performance characteristics determined by the [facility] Pathology Department, Section of Molecular Pathology. It has not been cleared or approved by the U.S. Food and Drug Administration (FDA), since FDA approval is not required for clinical use of the test. Validation was done as required by The Clinical Laboratory Improvement Amendments of 1988. Performing Organization Address City/State/Zipcode Phone Number [facility] [address] [address] CENTER Mycoplasma pneumoniae antibody, IgM (09/22/2017 4:44 AM TIP FIXER) M. pneumoniae Ab IgM, 139 U/mL [facility] Comment: INCORPORATED REFERENCE RANGE: <770 U/mL Interpretive criteria: <770 U/mL Negative 770-950 U/mL Low positive >950 U/mL Positive A positive IgM antibody result is consistent with recent infection. However, a negative result does not necessarily rule out recent infection as some individuals may not mount another IgM response, if previously infected. Specimen Blood - Arm, Right Narrative Performed At Performing [employer] *[employer] [address] [place] [address] Matthew Wolff MD Performing Organization Address [facility] [place] [address] [employer] [address] [facility] Mycoplasma pneumoniae antibody, IgG (09/22/2017 4:44 AM TIP FIXER) Mycoplasma Igg < or=0.90 [facility] Comment: REFERENCE RANGE: <=0.90 Interpretive criteria: <=0.90 Negative 0.91-1.09 Equivocal >=1.10 Positive A positive IgG antibody result indicates that the patient has antibody to Mycoplasma. It does not differentiate between an active or past infection. The clinical diagnosis must be interpreted in conjunction with the clinical signs and symptoms of the patient. Specimen Blood - Arm, Right Narrative Performed At Performing [employer] [facility] *[employer] [address] [place] [address] Matthew Wolff MD Performing Organization Address [facility] [place] [address] [employer] [address] [facility] Bronchial culture + gram stain (09/21/2017 12:52 PM TIP FIXER) Result No growth [facility] Gram Stain Result <1+ WBCs [facility] Gram Stain Result No organisms seen [facility] Specimen BAL - Lung, Right Middle Lobe Performing Organization Address [facility]/Zipcode Phone Number [facility] [address] [place] [address] CENTER SPIN/CONCENTRATION CHARGE (09/21/2017 12:49 PM TIP FIXER) Concentration charged Done [facility] Specimen Body Fluid - BAL Performing Organization Address [facility] Phone Number [address] [address] [phone] [place] [employer] culture + smear (09/21/2017 12:49 PM TIP FIXER) Result No acid-fast bacilli isolated in [facility] 42 days [facility]ENTER [employer] Smear No acid fast bacilli seen [facility] Specimen Body Fluid - BAL Performing Organization Address [facility]/Zipcode Phone Number [address] [address] [place] Fungus culture + smear (09/21/2017 12:49 PM TIP FIXER) Result No fungus isolated in 28 days [facility] Fungus Smear No fungi seen [facility] Specimen BAL - Lung, Right Middle Lobe Performing Organization Address [facility] Phone Number [address] [address] [phone] [place] Blood gas, arterial (09/21/2017 11:02 AM TIP FIXER) pH, Arterial 7.43 7.35 - 7.45 [facility] pCO2, Arterial 32 (L) 35 - 45 mmHg [facility] pO2, Arterial 226 (H) 80 - 90 mmHg [facility] O2 Sat, Arterial 99.5 (H) 96.0 - 97.0 % [facility] HCO3, Arterial 21 21 - 29 mmol/L [facility] Base Excess, Arterial -3.3 (L) -2.0 - 3.0 mmol/L [facility] Patient Temperature 36.9 C [facility] FIO2 60.0 % [facility] Specimen Blood, Arterial - Arm, Right Performing Organization Address City/State/Zipcode Phone Number [facility] [address] [place], [place] [phone] [place] ECHOCARDIOGRAM REPORT - SCAN (09/20/2017 5:15 PM TIP FIXER) Narrative Performed At Legionella antigen, urine (09/20/2017 3:30 PM TIP FIXER) Legionella Urine Antigen Negative - see [facility] commentComment: Negative [facility] for L. pneumophila serogroup 1 antigen, suggesting no recent or current infection with this serogroup. Legionellosis cannot be ruled out since other serogroups and species may cause disease. Specimen Urine - Urine, Sterile Collection Performing Organization Address City/[facility] Phone Number [facility] [address] [place] [address] [phone] [place] 2D Echo W/O Doppler(No Doppler) (09/20/2017 1:08 PM TIP FIXER) Ejection Fraction [facility]CHO [facility] Narrative Performed At Transthoracic Echocardiography Report (TTE) [facility]ART[facility] Demographics Patient NameMIKE ZIEGLER Date of Study09/20/2017 Female Visit [id number] Unknown Room [id number] Number Date of 1955Referring Sebastian minaya 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 A eghvs-gs-tmyxgdbr pericardial effusion is present . The pericardial effusion is circumferential. Pericardial tamponade physiology is not evident . The estimated RA pressure by IVC dynamics 0-5mmHg . Previous Study No prior studies available for comparison. Signature Findings Technical Quality: Technically adequate exam. Left Ventricle LV endocardium is adequately visualized with IV ul trasound enhancing agent. Th e left ventricle is chamber size (by vol index) is mildly enlarged (female - LVED 62-70ml/m2). Se ptal motion is consistent with LBBB, otherwise al l of the LV segments contract normally . Gl obal LV systolic function normal . Left AtriumLA is adequately visualized. LA size is normal (16-34 ml/m2) . Right VentricleThe right ventricular chamber size and systolic fu nction are within normal limits. Right Atrium The RA is well visualized. RA cavity size is normal . Aortic Valve Mild AoV cusp thickening. Ao V cusp mobility is normal . Mitral Valve Mild MV leaflet thickening. No evidence of mitral regurgitation. Tricuspid ValveNormal TV structure and function by available views an d Doppler. Un able to estimate peak systolic PA pressure; in adequate TR velocity signal. Pulmonic Valve Normal PV structure and function by limited views an d Doppler. AortaAortic root size (SInus of Valsalva diameter) is no rmal . PericardiumA pzgxi-qw-vdouwwkv pericardial effusion is present . Th e pericardial effusion is circumferential. Pe ricardial tamponade physiology is not evident . IVC/SVC/PA/PV/PleuralThe inferior vena cava is adequately visualized. Th e inferior vena cava size is normal . Th e estimated RA pressure by IVC dynamics 0-5mmHg [...] E-Wave: 0.76 m/sMV Peak A-Wave: 1.27 m/s E/A Ratio: 0.6 Peak Gradient: 2.31 mmHg MV Farhan. 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 A yswds-no-zvatiltj pericardial effusion is present . The pericardial [...] Valsalva diameter) is normal . Pericardium A kfpzd-sy-pcinnqyb pericardial effusion is present . The pericardial [...] CO: 8.59 l/min LVOT CI: 3.8 l/min/m^2 Performing Organization Address [facility] Phone Number [facility]ART[facility] MK[facility]ON [facility] Procalcitonin (09/20/2017 10:04 AM TIP FIXER) Procalcitonin 2.35 (H) <0.05 ng/mL [facility] Specimen Blood Narrative Performed At [facility] SEPSIS RISK (ng/mL) Low:0.05-0.50 Intermediate: 0.51-2.00 High: >=2.01 Performing Organization Address [facility] Phone Number [address] [address] [place] Lactic acid, venous, whole blood (09/20/2017 8:04 AM TIP FIXER) Lactate, Venous 0.5 0.5 - 2.2 mmol/L [facility] Specimen Blood Narrative Performed At [facility] Effective 01/27/2016: Units/Reference Range Change New: 0.5-2.2 mmol/LPrevious: 5-20 mg/dL Performing Organization Address [facility] Phone Number [address] [address] CENTER B-type Natriuretic Factor (BNP) (09/20/2017 8:04 AM TIP FIXER) BNP 22 0 - 100 pg/mL [facility] Specimen Blood Performing Organization Address [facility] Phone Number [address] [address] [phone] CENTER Hemoglobin A1c (09/20/2017 8:04 AM TIP FIXER) Hemoglobin A1C 6.8 (H) 4.3 - 6.1 % [facility] Specimen Blood Performing Organization Address City/State/Zipcode Phone Number [facility] [address] [place], [place] [phone] [place] Strep pneumoniae antigen (09/20/2017 6:09 AM TIP FIXER) Strep pneumoniae Presumptive negative Presumptive negative [facility] Antigen for pneumococcal for pneumococcal [facility] pneumonia - see comment pneumonia - see CENTER comment, Presumptive negative for pneumococcal meningitis - see comment Specimen Urine - Urine, Unspecified Source Narrative Performed At Presumptive negative for pneumococcal [facility] pneumonia, suggesting no current or recent pneumococcal infection. Infection due to S. pneumoniae cannot be ruled out since the antigen present in the sample may be below the detection limit of the test. Performing Organization Address City/State/Zipcode Phone Number [place] [phone] [place], [place] [phone] [place] Manual Differential (09/20/2017 3:01 AM TIP FIXER) % Neutros (manual) 54 % [facility] % Lymphs (manual) 13 % [facility] % Monos (manual) 11 % [facility] % Eos (manual) 6 % [facility] % Metamyelo (manual) 3 (H) 0 - 0 % [facility] % Myelo (manual) 2 (H) 0 - 0 % [facility] % Bands (manual) 11 (H) 0 - 10 % [facility] # Neutros (manual) 6.70 1.80 - 8.00 K/L [facility] # Lymphs (manual) 1.61 1.48 - 4.50 K/L [facility] # Monos (manual) 1.36 (H) 0.00 - 1.30 K/L [facility] # Eos (manual) 0.74 (H) 0.00 - 0.50 K/L [facility] # Metamyelo (manual) 0.37 (H) 0.00 - 0.00 K/L [facility] # Bands (manual) 1.4 (H) 0.0 - 0.8 K/L [facility] # Myelo (manual) 0.25 (H) 0.00 - 0.00 K/L [facility] MEDICAL [place] Total Counted 100 [facility] Bands plus Segmented 8.06 [facility] Neutrophils [facility] WBC Morphology Normal [facility] Platelet Morphology Normal [facility] Anisocytosis 2+ moderate [facility] Poikilocytes 2+ moderate [facility] Specimen Blood Performing Organization Address City/State/Zipcode Phone Number [facility] [address] [place] [address] [phone] CENTER RESPIRATORY PANEL HS (09/20/2017 3:01 AM TIP FIXER) Human Metapneumovirus Not detected Not detected, [facility] Rhinovirus Not detected Not detected, [facility] Influenza A Not detected Not detected, [facility] Influenza A subtype H1 Not detected Not detected, [facility] Influenza A Subtype H3 Not detected Not detected, [facility] Influenza A Subtype H1-2009 Not detected Not detected, [facility] Influenza B Not detected Not detected, [facility] Respiratory Syncytial Virus Not detected Not detected, [facility] Parainfluenza Virus 1 Not detected Not detected, [facility] Parainfluenza Virus 2 Not detected Not detected, [facility] Parainfluenza virus 3 Not detected Not detected, [facility] Parainfluenza Virus 4 Not detected Not detected, [facility] Adenovirus Not detected Not detected, [facility] Coronavirus 229E Not detected Not detected, [facility] Coronavirus HKU1 Not detected Not detected, [facility] Coronavirus NL63 Not detected Not detected, [facility] Coronavirus OC43 Not detected Not detected, [facility] Bordetella Pertussis Not detected Not detected, [facility] Chlamydophila Pneumoniae Not detected Not detected, [facility] Mycoplasma Pneumoniae Not detected Not detected, [facility] Specimen Nasopharyngeal - Nasopharyngeal Swab Performing Organization Address [facility] Phone Number [address] [address] [place] Iron, TIBC, % sat. (without ferritin) (09/20/2017 3:01 AM TIP FIXER) Iron 27 (L) 40 - 160 ug/dL [facility] TIBC 186 (L) 250 - 450 ug/dL [facility] Iron % Saturation 15 (L) 20 - 55 % [facility] Specimen Blood Performing Organization Address [facility] Phone Number [address] [address] [place] Troponin I (09/20/2017 3:01 AM TIP FIXER) Troponin I <0.01 0.00 - 0.03 ng/mL [facility] Specimen Blood Narrative Performed At [facility] Troponin I (TnI) levels must be interpreted [...] acidosis, acute neurological disease, and persistent tachyarrhythmia. Performing Organization Address [facility] Phone Number [address] [address] CENTER Phosphorus (09/20/2017 3:01 AM TIP FIXER) Phosphorus 4.2 2.3 - 4.7 mg/dL [facility] Specimen Blood Performing Organization Address [facility] Phone Number [address] [address] CENTER Ferritin (09/20/2017 3:01 AM TIP FIXER) Ferritin 535 (H) 5 - 275 ng/mL [facility] Specimen Blood Performing Organization Address [facility] Phone Number [address] [address] [place] Creatine Kinase (CK), Total and MB (09/20/2017 3:01 AM TIP FIXER) Total CK 76 29 - 200 U/L [facility] CK-MB 1.9 0.0 - 6.6 ng/mL [facility] MB Relative Index 2.5 % [facility] Specimen Blood Narrative Performed At CK-MB Reference Range: [facility] <6.7Normal 6.7-10.0Borderline >10.0 Abnormal Performing Organization Address [facility] Phone Number [address] [address] [phone] CENTER ECG 12 lead (09/20/2017 2:43 AM TIP FIXER) Narrative Performed At Ventricular Rate 79 BPM GE MUSE Atrial Rate 79 BPM P-R Interval 192 ms QRS Duration 152 ms Q-T Interval 456 ms QTC Calculation(Bazett) 522 ms P [place] 59 degrees R [place] -15 degrees T [place] 87 degrees Normal sinus rhythm Left bundle branch block Prolonged QT Abnormal ECG No previous ECGs available Confirmed by MD TRISTAN YOCHAI ([id number]) on 09/20/2017 6:40:55 AM Procedure Note Interface, External Ris In - 09/20/2017 6:41 AM TIP FIXER Ventricular Rate 79 BPM Atrial Rate 79 BPM P-R Interval 192 ms QRS Duration 152 ms Q-T Interval 456 ms QTC Calculation(Bazett) 522 ms P [place] 59 degrees R [place] -15 degrees T [place] 87 degrees Normal sinus rhythm Left bundle branch block Prolonged QT Abnormal ECG No previous ECGs available Confirmed by MD RAZIA, TREVOR ([id number]) on 09/20/2017 6:40:55 AM Performing Organization Address City/State/[facility] Phone Number GE MUSE Blood culture (09/20/2017 12:43 AM TIP FIXER)Only the most recent of2 resultswithin the time period is included. Result No growth in 5 days [facility] Specimen Blood - Arm, Left Performing Organization Address City/State/Zipcode Phone Number [facility] [address] [place] [address] CENTER after 08/07/2017 Insurance Payer Benefit Plan / Subscriber ID Type Phone Address Group [employer]UE [employer] xxxxxxxxxxxxxxx PPO [phone] [id number] [employer] [place] [address] Advance Directives For more information, please contact:[address] [phone] Code Status Date Activated Date Inactivated Comments Full Code 09/19/2017 11:09 PM 09/28/2017 8:58 PM This code status was determined by: Patient
--- OUTSIDE RECORDS SUMMARY | 2018-08-08 05:58 | XMS REPORT ---
:1955 [facility] [address] [place] [address] Dr. Chavira. [address] [place] [address] Care Team Providers Name Role Phone DR [...] ID 2017-12-20 2017-12-20 Outpatient C LYSSA COTTON [facility] [id number] 05:45:00 10:51:00 Results Test Description Test Time Test Comments Text Results Atomic Results Result Comments GLUCOMETER GLUCOSE- LAB USE ONLY 2017-12-20 09:57:00 Test Item Value Reference Range Comments GLUCOMETER (test code=GMG) 163 mg/dL 70-100 Meter ID: [id number]: [id number] ARIC ROBERSON GLUCOMETER GLUCOSE- LAB USE [id number] 06:56:00 Test Item Value Reference Range Comments GLUCOMETER (test code=GMG) 148 mg/dL 70-100 CLEANED METERMeter ID: [id number]: [id number] [employer] CULTURE + [id number] 18:43:00 Test Item Value Reference Range Comments CULTURE (BEAKER) (test No acid-fast bacilli isolated eeus=2912) in 42 days AFB SMEAR (BEAKER) (test No acid fast bacilli seen pvls=887) FUNGUS CULTURE + [id number] 13:42:00 Test Item Value Reference Range Comments CULTURE (BEAKER) (test No fungus isolated in 28 days ksjw=6063) FUNGUS SMEAR (BEAKER) (test No fungi seen pbhl=6144) BODY FLUID CULTURE + GRAM [id number] 06:03:00 Test Item Value Reference Range Comments CULTURE (BEAKER) (test fauz=0767) No growth GRAM STAIN RESULT (BEAKER) (test No White blood cells seen wdmw=6727) GRAM STAIN RESULT (BEAKER) (test No organisms seen lxuv=56629) POCT-GLUCOSE [id number] 12:20:00 Test Item Value Reference Range Comments POC-GLUCOSE METER (BEAKER) 181 mg/dL 70-110 TESTED AT [address] (test acij=0062) [place] [address] POCT-GLUCOSE [id number] 08:56:00 Test Item Value Reference Range Comments POC-GLUCOSE METER (BEAKER) 119 mg/dL 70-110 TESTED AT [address] (test pprp=0945) [place] [id number] BASIC METABOLIC [id number] 07:37:00 Test Item Value Reference Range Comments SODIUM (BEAKER) (test 135 meq/L 136-145 tjhs=559) POTASSIUM (BEAKER) (test 4.3 meq/L 3.5-5.1 ywbt=506) CHLORIDE (BEAKER) (test 106 meq/L 98-107 oaxb=604) CO2 (BEAKER) (test 19 meq/L 22-29 lfnp=158) BLOOD UREA NITROGEN 49 mg/dL 7-21 (BEAKER) (test rrvf=553) CREATININE (BEAKER) (test 3.42 mg/dL 0.57-1.25 aaww=738) GLUCOSE RANDOM (BEAKER) 109 mg/dL 70-105 (test xent=179) CALCIUM (BEAKER) (test 9.4 mg/dL 8.4-10.2 gefz=679) EGFR (BEAKER) (test 14 mL/min/1.73 sq m ESTIMATED GFR IS NOT hllo=2625) ACCURATE CREATININE CLEARANCE IN PREDICTING GLOMERULAR FILTRATION RATE. ESTIMATED GFR IS NOT APPLICABLE FOR DIALYSIS PATIENTS. [id number] 07:36:00 Test Item Value Reference Range Comments MAGNESIUM (BEAKER) (test dovd=188) 1.7 mg/dL 1.6-2.6 BODY FLUID CELL COUNT WITH [id number] 22:37:00 Test Item Value Reference Range Comments APPEARANCE FLUID (BEAKER) (test ybmn=666) Bloody Clear COLOR FLUID (BEAKER) (test ouae=591) Pita Colorless, Straw RBC FLUID (BEAKER) (test vhoh=614) 88303 /cu mm <=1 ADJUSTED WBC FLUID (BEAKER) (test rmpl=4513) 3032 /cu mm <=5 LINING CELLS (BEAKER) (test gmwm=8816) 121 /cu mm <=1 NEUTROPHILS FLUID (BEAKER) (test zahq=7660) 32 % LYMPHS FLUID (BEAKER) (test ccxb=313) 6 % MONO/MACROPHAGE FLUID (BEAKER) (test jpgg=060) 60 % EOSINOPHILS FLUID (BEAKER) (test byxu=583) 2 % BASO FLUID (BEAKER) (test ccsk=398) 0 % CONTAINER BODY FLUID (BEAKER) (test caoa=9633) EDTA Tube POCT-GLUCOSE [id number] 21:26:00 Test Item Value Reference Range Comments POC-GLUCOSE METER (BEAKER) 165 mg/dL 70-110 TESTED AT [address] (test lcej=4663) [facility] [address] LACTATE DEHYDROGENASE (LDH), BODY [id number] 20:35:00 Test Item Value Reference Range Comments LACTATE DEHYDROGENASE FLUID (BEAKER) 234 U/L Light's criteria identifies (test cnlk=914) effusions if one or more are pre Absence of reference range indicates that normals have not been defined.Assay performance has not been validated for this type of specimen.PROTEIN, BODY [id number] 20:35:00 Test Item Value Reference Range Comments PROTEIN FLUID (BEAKER) (test 3.6 g/dL Light's criteria identifies bqfa=962) effusions if one or more are pre Absence of reference range indicates that normals have not been defined.Assay performance has not been validated for this type of specimen.POCT-GLUCOSE [id number] 17:21:00 Test Item Value Reference Range Comments POC-GLUCOSE METER (BEAKER) 134 mg/dL 70-110 TESTED AT [address] (test neek=1239) [facility] [address] U/S, [id number] 17:19:00Laterality?->RightReason for exam:-> diagnsotic and therapeuticFINAL REPORT [...] After the area is anesthetized, a 4 Khmer catheter is advanced into the pleural space. [...] Peters Verified Date/Time: 09/27/2017 17:19:37 Reading Location: [place] [id number] Ultrasound Reading Room RAD, CHEST, 1 VIEW, NON [id number] 16:21: 00Reason for exam:->Post Thoracentesis U/S room 3 U/S Room 3 Should this be performed at the bedside?->YesFINAL REPORT AP chest HISTORY: Thoracentesis COMPARISON: 09/27/2017 IMPRESSION:Intact skeleton. Cardiac silhouette mildly enlarged. Mild interstitial prominence, similar to previous. Right effusion appears decreased. No pneumothorax. Signed: Tari Lea Verified Date/Time: 09/27/2017 16:21:56 Reading Location: [facility] Mammo Reading Room Electronically signed by: TARI LEA M.D. on 2017 04:21 PMRAD, CHEST, 1 VIEW, NON [id number] 13:43:00Reason for exam:-&gt ;overloadShould this be performed at the bedside?->YesFINAL REPORT Chest one view compared to September 25 Discussion: Cardiac prominence , pulmonary congestion, and small right base effusion are unchanged. No pneumothorax. Signed: Austyn Apodacaeport Verified Date/Time: 09/27/2017 13: 43:29 Reading Location: [facility] C013W Consult Reading Room POCT-GLUCOSE [id number] 12:32:00 Test Item Value Reference Range Comments POC-GLUCOSE METER (BEAKER) 181 mg/dL 70-110 TESTED AT [address] (test bcef=3355) [place] [address] VITAMIN B12 AND [id number] 08:57:00 Test Item Value Reference Range Comments VITAMIN B12 (BEAKER) (test mwxg=711) > pg/mL 213-816 FOLATE (BEAKER) (test ztof=479) 13.3 ng/mL >=7.0 SPIN/CONCENTRATION [id number] 08:48:00 Test Item Value Reference Range Comments CONCENTRATION CHARGED (BEAKER) (test rdax=2685) Done POCT-GLUCOSE [id number] 07:58:00 Test Item Value Reference Range Comments POC-GLUCOSE METER (BEAKER) 155 mg/dL 70-110 TESTED AT [address] (test kbwh=6002) [place] [address] BASIC METABOLIC [id number] 06:35:00 Test Item Value Reference Range Comments SODIUM (BEAKER) (test 134 meq/L 136-145 aqww=818) POTASSIUM (BEAKER) (test 4.5 meq/L 3.5-5.1 gmfp=053) CHLORIDE (BEAKER) (test 107 meq/L 98-107 pofy=640) CO2 (BEAKER) (test 18 meq/L 22-29 xrbx=250) BLOOD UREA NITROGEN 45 mg/dL 7-21 (BEAKER) (test zvqw=733) CREATININE (BEAKER) (test 3.29 mg/dL 0.57-1.25 ivcr=498) GLUCOSE RANDOM (BEAKER) 149 mg/dL 70-105 (test cnyh=021) CALCIUM (BEAKER) (test 9.4 mg/dL 8.4-10.2 ozpz=622) EGFR (BEAKER) (test 14 mL/min/1.73 sq m ESTIMATED GFR IS NOT fmil=9451) ACCURATE CREATININE CLEARANCE IN PREDICTING GLOMERULAR FILTRATION RATE. ESTIMATED GFR IS NOT APPLICABLE FOR DIALYSIS PATIENTS. [id number] 06:34:00 Test Item Value Reference Range Comments MAGNESIUM (BEAKER) (test wrxz=965) 1.6 mg/dL 1.6-2.6 POCT-GLUCOSE [id number] 21:34:00 Test Item Value Reference Range Comments POC-GLUCOSE METER (BEAKER) 172 mg/dL 70-110 TESTED AT [address] (test ckyc=6295) [facility] [address] POCT-GLUCOSE [id number] 18:44:00 Test Item Value Reference Range Comments POC-GLUCOSE METER (BEAKER) 179 mg/dL 70-110 TESTED AT [address] (test ihty=9266) [place] [id number] POCT-GLUCOSE [id number] 14:01:00 Test Item Value Reference Range Comments POC-GLUCOSE METER (BEAKER) 176 mg/dL 70-110 TESTED AT [address] (test hemo=3626) [facility] [address] LACTATE DEHYDROGENASE (LDH)2017-09-26 12:06:00 Test Item Value Reference Range Comments LACTATE DEHYDROGENASE (BEAKER) (test sziy=223) 309 U/L 125-220 PROTEIN, [id number] 12:04:00 Test Item Value Reference Range Comments TOTAL PROTEIN (BEAKER) (test huxo=737) 6.1 gm/dL 6.0-8.3 [id number] 11:43:00 Test Item Value Reference Range Comments PROTIME (BEAKER) (test gzmm=262) 14.5 seconds 11.7-14.7 INR (BEAKER) (test finn=043) 1.1 <=5.9 PARTIAL THROMBOPLASTIN TIME (BEAKER) (test 39.2 seconds 22.5-36.0 jafq=396) RECOMMENDED COUMADIN/WARFARIN INR THERAPY RANGESSTANDARD DOSE: 2.0 - 3.0 Includes: PROPHYLAXIS forvenous thrombosis, systemic embolization; TREATMENT for venous thrombosis and/or pulmonary embolus.HIGH RISK: Target INR is 2.5-3.5 for patients with mechanical heart valves.PLATELET [id number] 11:31:00 Test Item Value Reference Range Comments PLATELET COUNT (BEAKER) (test cycm=919) 501 K/CU MM 150-450 POCT-GLUCOSE [id number] 08:42:00 Test Item Value Reference Range Comments POC-GLUCOSE METER (BEAKER) 146 mg/dL 70-110 TESTED AT [address] (test yweo=1247) [place] [address] BASIC METABOLIC [id number] 05:39:00 Test Item Value Reference Range Comments SODIUM (BEAKER) (test 137 meq/L 136-145 avmm=722) POTASSIUM (BEAKER) (test 4.7 meq/L 3.5-5.1 jxox=149) CHLORIDE (BEAKER) (test 109 meq/L 98-107 yyrg=322) CO2 (BEAKER) (test 20 meq/L 22-29 nxqw=532) BLOOD UREA NITROGEN 43 mg/dL 7-21 (BEAKER) (test yzsy=546) CREATININE (BEAKER) (test 3.09 mg/dL 0.57-1.25 htym=680) GLUCOSE RANDOM (BEAKER) 160 mg/dL 70-105 (test ocuw=951) CALCIUM (BEAKER) (test 9.6 mg/dL 8.4-10.2 guzh=772) EGFR (BEAKER) (test 15 mL/min/1.73 sq m ESTIMATED GFR IS NOT xzty=2992) ACCURATE CREATININE CLEARANCE IN PREDICTING GLOMERULAR FILTRATION RATE. ESTIMATED GFR IS NOT APPLICABLE FOR DIALYSIS PATIENTS. [id number] 05:38:00 Test Item Value Reference Range Comments MAGNESIUM (BEAKER) (test mizq=726) 1.9 mg/dL 1.6-2.6 POCT-GLUCOSE [id number] 21:13:00 Test Item Value Reference Range Comments POC-GLUCOSE METER (BEAKER) 241 mg/dL 70-110 TESTED AT [address] (test ksot=3586) [facility] [address] RAD, CHEST, 2 [id number] 19:38:00Reason for exam:->coughFINAL REPORT Examination: Two view [...] MDReport Verified Date/Time: 2017 19:38:01 Reading Location: [address] Reading Room POCT- GLUCOSE [id number] 17:23:00 Test Item Value Reference Range Comments POC-GLUCOSE METER (BEAKER) 190 mg/dL 70-110 TESTED AT [address] (test fscj=2137) [place] [id number] POCT-GLUCOSE [id number] 12:22:00 Test Item Value Reference Range Comments POC-GLUCOSE METER (BEAKER) 239 mg/dL 70-110 TESTED AT [address] (test ilbf=3239) [place] [address] BLOOD [id number] 10:00:00 Test Item Value Reference Range Comments CULTURE (BEAKER) (test fjfo=4152) No growth in 5 days BLOOD [id number] 10:00:00 Test Item Value Reference Range Comments CULTURE (BEAKER) (test iroh=4152) No growth in 5 days POCT-GLUCOSE [id number] 08:02:00 Test Item Value Reference Range Comments POC-GLUCOSE METER (BEAKER) 196 mg/dL 70-110 TESTED AT [address] (test ditp=3979) [place] [address] [id number] 07:15:00 Test Item Value Reference Range Comments MAGNESIUM (BEAKER) (test dnxx=918) 1.8 mg/dL 1.6-2.6 BASIC METABOLIC [id number] 07:15:00 Test Item Value Reference Range Comments SODIUM (BEAKER) (test 136 meq/L 136-145 vjxq=381) POTASSIUM (BEAKER) (test 4.4 meq/L 3.5-5.1 mrcn=614) CHLORIDE (BEAKER) (test 109 meq/L 98-107 lzdd=252) CO2 (BEAKER) (test 19 meq/L 22-29 yere=149) BLOOD UREA NITROGEN 44 mg/dL 7-21 (BEAKER) (test pkgn=974) CREATININE (BEAKER) (test 3.16 mg/dL 0.57-1.25 sjcv=580) GLUCOSE RANDOM (BEAKER) 197 mg/dL 70-105 (test dhvk=731) CALCIUM (BEAKER) (test 9.3 mg/dL 8.4-10.2 zgom=753) EGFR (BEAKER) (test 15 mL/min/1.73 sq m ESTIMATED GFR IS NOT tguy=4456) ACCURATE CREATININE CLEARANCE IN PREDICTING GLOMERULAR FILTRATION RATE. ESTIMATED GFR IS NOT APPLICABLE FOR DIALYSIS PATIENTS. POCT-GLUCOSE [id number] 22:03:00 Test Item Value Reference Range Comments POC-GLUCOSE METER (BEAKER) 286 mg/dL 70-110 TESTED AT [address] (test ppsc=7818) [facility] [address] POCT-GLUCOSE [id number] 21:21:00 Test Item Value Reference Range Comments POC-GLUCOSE METER (BEAKER) 294 mg/dL 70-110 TESTED AT [address] (test ffvz=4523) [facility] [address] POCT-GLUCOSE [id number] 17:10:00 Test Item Value Reference Range Comments POC-GLUCOSE METER (BEAKER) 212 mg/dL 70-110 TESTED AT [address] (test bzpn=6292) [facility] [address] PROTEIN, RANDOM [id number] 17:00:00 Test Item Value Reference Range Comments PROTEIN, URINE (BEAKER) (test wxux=2810) 154 mg/dL 0-14 CREATININE, RANDOM [id number] 16:59:00 Test Item Value Reference Range Comments CREATININE URINE (BEAKER) (test yzfn=892) 88.8 mg/dL Reference Range: No NormalsPET, CARDIAC PERFUSION MULTIPLE STUDIES, REST AND [id number] 16:36:00Reason for exam:->chest pain, hypokinesis on echoFINAL REPORT PROCEDURE: Rest/Stress MYOCARDIAL PERFUSION PET with regadenoson\\XA9\\ CPT CODE: 64210 INDICATION: Chest pain, hypokinesis on echo HISTORY: [...] is normal. 6. No previous [facility] study for comparison. NONINVASIVE RISK STRATIFICATION: The above findings are considered low risk based on the following criteria: 1)Normal or small myocardial perfusion defect at rest or with stress(JACC. 2012;59(9):857-81.) Signed: Selvin Braswell Verified Date/Time: 09/24/2017 16:36:36 POCT- GLUCOSE [id number] 10:53:00 Test Item Value Reference Range Comments POC-GLUCOSE METER (BEAKER) 158 mg/dL 70-110 TESTED AT [facility] [address] [place] (test bzpj=0371) [facility] [address] POCT-GLUCOSE [id number] 07:31:00 Test Item Value Reference Range Comments POC-GLUCOSE METER (BEAKER) 142 mg/dL 70-110 TESTED AT [facility] [address] [place] (test ytue=5283) [facility] [address] BASIC METABOLIC [id number] 05:57:00 Test Item Value Reference Range Comments SODIUM (BEAKER) (test 138 meq/L 136-145 hlcm=438) POTASSIUM (BEAKER) (test 4.3 meq/L 3.5-5.1 swis=409) CHLORIDE (BEAKER) (test 110 meq/L 98-107 lald=899) CO2 (BEAKER) (test 19 meq/L 22-29 oboj=934) BLOOD UREA NITROGEN 42 mg/dL 7-21 (BEAKER) (test qlqe=429) CREATININE (BEAKER) (test 3.58 mg/dL 0.57-1.25 iyjq=450) GLUCOSE RANDOM (BEAKER) 139 mg/dL 70-105 (test kkee=882) CALCIUM (BEAKER) (test 9.4 mg/dL 8.4-10.2 aald=419) EGFR (BEAKER) (test 13 mL/min/1.73 sq m ESTIMATED GFR IS NOT olog=3826) ACCURATE CREATININE CLEARANCE IN PREDICTING GLOMERULAR FILTRATION RATE. ESTIMATED GFR IS NOT APPLICABLE FOR DIALYSIS PATIENTS. [id number] 05:13:00 Test Item Value Reference Range Comments MAGNESIUM (BEAKER) (test trjb=002) 1.9 mg/dL 1.6-2.6 VANCOMYCIN LEVEL, [id number] 05:10:00 Test Item Value Reference Range Comments VANCOMYCIN RANDOM (BEAKER) (test zswq=049) 16.6 ug/mL Reference Range: No NormalsU/S, RENAL, [id number] 22:13:00Reason for exam:->Elevated creatinineFINAL REPORT U/S, RENAL, [...] MDReport Verified Date/Time: 09/23/2017 22:13:52 Reading Location: [address] Ortho Consult Reading Room POCT-GLUCOSE [id number] 21:25:00 Test Item Value Reference Range Comments POC-GLUCOSE METER (BEAKER) 220 mg/dL 70-110 TESTED AT [address] (test gcgc=7369) [place] [address] POCT-GLUCOSE [id number] 17:02:00 Test Item Value Reference Range Comments POC-GLUCOSE METER (BEAKER) 223 mg/dL 70-110 TESTED AT [address] (test wbux=3695) [place] [address] BRONCHIAL CULTURE + GRAM [id number] 15:04:00 Test Item Value Reference Range Comments CULTURE (BEAKER) (test cfwl=7158) No growth GRAM STAIN RESULT (BEAKER) (test <1+ WBCs sbrm=8100) GRAM STAIN RESULT (BEAKER) (test No organisms seen ynlu=29736) URINALYSIS W/ REFLEX URINE [id number] 13:20:00 Test Item Value Reference Range Comments COLOR (BEAKER) (test gbow=963) Yellow CLARITY (BEAKER) (test wtib=542) Hazy SPECIFIC GRAVITY UA (BEAKER) (test lxsw=848) 1.010 1.001-1.035 PH UA (BEAKER) (test qaat=059) 5.5 5.0-8.0 PROTEIN UA (BEAKER) (test pxve=788) 100 mg/dL Negative GLUCOSE UA (BEAKER) (test pljd=109) 30 mg/dL Negative KETONES UA (BEAKER) (test vpoe=988) Negative Negative BILIRUBIN UA (BEAKER) (test oeqh=010) Negative Negative BLOOD UA (BEAKER) (test wgqf=439) Negative Negative NITRITE UA (BEAKER) (test ywyb=088) Negative Negative LEUKOCYTE ESTERASE UA (BEAKER) (test vyqq=059) Negative Negative UROBILINOGEN UA (BEAKER) (test lwbx=097) 0.2 mg/dL 0.2-1.0 RBC UA (BEAKER) (test katr=019) 0 /HPF WBC UA (BEAKER) (test kjlh=988) 1 /HPF BACTERIA (BEAKER) (test sqin=540) Occasional MUCUS (BEAKER) (test vwyt=5300) Rare SQUAMOUS EPITHELIAL (BEAKER) (test xtii=063) 11 /HPF YEAST (BEAKER) (test ytld=4150) Rare SOURCE(BEAKER) (test xqoh=9839) CREATININE, RANDOM [id number] 13:13:00 Test Item Value Reference Range Comments CREATININE URINE (BEAKER) (test wqxb=147) 101.2 mg/dL Reference Range: No NormalsSODIUM, RANDOM [id number] 13:13:00 Test Item Value Reference Range Comments SODIUM URINE (BEAKER) (test iybh=548) 31 meq/L Reference Range: No NormalsPOCT-GLUCOSE [id number] 11:37:00 Test Item Value Reference Range Comments POC-GLUCOSE METER (BEAKER) 342 mg/dL 70-110 TESTED AT [facility] [address] [place] (test rsyc=8848) [facility] [address] VANCOMYCIN LEVEL, [id number] 08:10:00 Test Item Value Reference Range Comments VANCOMYCIN RANDOM (BEAKER) (test rbqs=226) 20.6 ug/mL Reference Range: No NormalsBASIC METABOLIC [id number] 08:05:00 Test Item Value Reference Range Comments SODIUM (BEAKER) (test 140 meq/L 136-145 fekh=146) POTASSIUM (BEAKER) (test 4.2 meq/L 3.5-5.1 xygk=333) CHLORIDE (BEAKER) (test 109 meq/L 98-107 wxtf=856) CO2 (BEAKER) (test 18 meq/L 22-29 qswb=536) BLOOD UREA NITROGEN 51 mg/dL 7-21 (BEAKER) (test drwp=952) CREATININE (BEAKER) (test 3.45 mg/dL 0.57-1.25 zhkn=218) GLUCOSE RANDOM (BEAKER) 159 mg/dL 70-105 (test jrwr=561) CALCIUM (BEAKER) (test 9.4 mg/dL 8.4-10.2 cpgs=457) EGFR (BEAKER) (test 14 mL/min/1.73 sq m ESTIMATED GFR IS NOT ykad=9059) ACCURATE CREATININE CLEARANCE IN PREDICTING GLOMERULAR FILTRATION RATE. ESTIMATED GFR IS NOT APPLICABLE FOR DIALYSIS PATIENTS. CBC W/PLT COUNT & AUTO [id number] 07:43:00 Test Item Value Reference Range Comments WHITE BLOOD CELL COUNT (BEAKER) (test qttf=410) 12.7 K/ L 3.5-10.5 RED BLOOD CELL COUNT (BEAKER) (test rble=440) 2.61 M/ L 3.93-5.22 HEMOGLOBIN (BEAKER) (test buwo=398) 7.9 GM/DL 11.2-15.7 HEMATOCRIT (BEAKER) (test jyzg=451) 24.7 % 34.1-44.9 MEAN CORPUSCULAR VOLUME (BEAKER) (test aciw=598) 94.6 fL 79.4-94.8 MEAN CORPUSCULAR HEMOGLOBIN (BEAKER) (test 30.3 pg 25.6-32.2 ogbm=450) MEAN CORPUSCULAR HEMOGLOBIN CONC (BEAKER) (test 32.0 GM/DL 32.2-35.5 yuvg=369) RED CELL DISTRIBUTION WIDTH (BEAKER) (test 14.2 % 11.7-14.4 slmr=676) PLATELET COUNT (BEAKER) (test wpmf=577) 466 K/CU MM 150-450 MEAN PLATELET VOLUME (BEAKER) (test wlfp=844) 10.6 fL 9.4-12.3 NUCLEATED RED BLOOD CELLS (BEAKER) (test 0 /100 WBC 0-0 qqsb=471) NEUTROPHILS RELATIVE PERCENT (BEAKER) (test 64 % ozsf=918) LYMPHOCYTES RELATIVE PERCENT (BEAKER) (test 17 % bpts=124) MONOCYTES RELATIVE PERCENT (BEAKER) (test 11 % sufr=368) EOSINOPHILS RELATIVE PERCENT (BEAKER) (test 7 % ycsa=670) BASOPHILS RELATIVE PERCENT (BEAKER) (test 0 % yuzd=400) NEUTROPHILS ABSOLUTE COUNT (BEAKER) (test 8.16 K/ L 1.56-6.13 ytpe=536) LYMPHOCYTES ABSOLUTE COUNT (BEAKER) (test 2.14 K/ L 1.18-3.74 akiu=222) MONOCYTES ABSOLUTE COUNT (BEAKER) (test 1.35 K/ L 0.24-0.36 bioc=576) EOSINOPHILS ABSOLUTE COUNT (BEAKER) (test 0.83 K/ L 0.04-0.36 zcrq=251) BASOPHILS ABSOLUTE COUNT (BEAKER) (test 0.04 K/ L 0.01-0.08 hhbg=382) IMMATURE GRANULOCYTES-RELATIVE PERCENT (BEAKER) 2 % 0-1 (test bzgg=8073) [id number] 07:35:00 Test Item Value Reference Range Comments MAGNESIUM (BEAKER) (test uelr=722) 1.9 mg/dL 1.6-2.6 POCT-GLUCOSE [id number] 07:33:00 Test Item Value Reference Range Comments POC-GLUCOSE METER (BEAKER) 196 mg/dL 70-110 TESTED AT [address] (test zwuq=2297) [place] [address] POCT-GLUCOSE [id number] 21:15:00 Test Item Value Reference Range Comments POC-GLUCOSE METER (BEAKER) 243 mg/dL 70-110 TESTED AT [address] (test lslt=0895) [place] [address] POCT-GLUCOSE [id number] 17:44:00 Test Item Value Reference Range Comments POC-GLUCOSE METER (BEAKER) 218 mg/dL 70-110 TESTED AT [address] (test prhe=6606) [place] [address] CMV PCR, [id number] 17:31:00 Test Item Value Reference Range Comments CMV VIRAL LOAD - NEGATIVE Negative or below the linear (BEAKER) (test pjtr=2790) range of the assay (<375 copies/mL) Cytomegalovirus [...] and its performance characteristics determined by the [facility] Pathology Department, Section of Molecular Pathology. It has not been cleared or approved by the U.S. Food and Drug Administration (FDA), since FDA approval is not required for clinical use of the test. Validation was done as required by The Clinical Laboratory Improvement Amendments of 1988.POCT-GLUCOSE [id number] 12:39:00 Test Item Value Reference Range Comments POC-GLUCOSE METER (BEAKER) 210 mg/dL 70-110 TESTED AT [address] (test rcro=6631) [place] [id number] POCT-GLUCOSE [id number] 07:41:00 Test Item Value Reference Range Comments POC-GLUCOSE METER (BEAKER) 151 mg/dL 70-110 TESTED AT [place] [id number] [facility] [place] (test dbrv=4084) [place] [id number] BASIC METABOLIC [id number] 05:54:00 Test Item Value Reference Range Comments SODIUM (BEAKER) (test 140 meq/L 136-145 liou=497) POTASSIUM (BEAKER) (test 4.4 meq/L 3.5-5.1 mwyb=460) CHLORIDE (BEAKER) (test 109 meq/L 98-107 hrsk=942) CO2 (BEAKER) (test 20 meq/L 22-29 agdo=275) BLOOD UREA NITROGEN 49 mg/dL 7-21 (BEAKER) (test zfsn=336) CREATININE (BEAKER) (test 3.42 mg/dL 0.57-1.25 wskv=634) GLUCOSE RANDOM (BEAKER) 140 mg/dL 70-105 (test owqk=348) CALCIUM (BEAKER) (test 9.4 mg/dL 8.4-10.2 dygd=823) EGFR (BEAKER) (test 14 mL/min/1.73 sq m ESTIMATED GFR IS NOT izrd=2912) ACCURATE CREATININE CLEARANCE IN PREDICTING GLOMERULAR FILTRATION RATE. ESTIMATED GFR IS NOT APPLICABLE FOR DIALYSIS PATIENTS. VANCOMYCIN LEVEL, [id number] 05:54:00 Test Item Value Reference Range Comments VANCOMYCIN RANDOM (BEAKER) (test meoz=645) 30.7 ug/mL Reference Range: No [id number] 05:47:00 Test Item Value Reference Range Comments MAGNESIUM (BEAKER) (test kofk=246) 1.8 mg/dL 1.6-2.6 CBC W/PLT COUNT & AUTO [id number] 05:15:00 Test Item Value Reference Range Comments WHITE BLOOD CELL COUNT (BEAKER) (test nvzi=848) 12.2 K/ L 3.5-10.5 RED BLOOD CELL COUNT (BEAKER) (test uoug=128) 2.44 M/ L 3.93-5.22 HEMOGLOBIN (BEAKER) (test biwt=768) 7.7 GM/DL 11.2-15.7 HEMATOCRIT (BEAKER) (test pazo=689) 23.2 % 34.1-44.9 MEAN CORPUSCULAR VOLUME (BEAKER) (test cvxi=449) 95.1 fL 79.4-94.8 MEAN CORPUSCULAR HEMOGLOBIN (BEAKER) (test 31.6 pg 25.6-32.2 psmz=254) MEAN CORPUSCULAR HEMOGLOBIN CONC (BEAKER) (test 33.2 GM/DL 32.2-35.5 djwh=890) RED CELL DISTRIBUTION WIDTH (BEAKER) (test 14.1 % 11.7-14.4 zuem=373) PLATELET COUNT (BEAKER) (test xylh=813) 396 K/CU MM 150-450 MEAN PLATELET VOLUME (BEAKER) (test gsdv=733) 9.9 fL 9.4-12.3 NUCLEATED RED BLOOD CELLS (BEAKER) (test 0 /100 WBC 0-0 zmii=978) NEUTROPHILS RELATIVE PERCENT (BEAKER) (test 63 % cxuc=559) LYMPHOCYTES RELATIVE PERCENT (BEAKER) (test 16 % ohds=802) MONOCYTES RELATIVE PERCENT (BEAKER) (test 11 % hmgq=755) EOSINOPHILS RELATIVE PERCENT (BEAKER) (test 7 % rgvu=778) BASOPHILS RELATIVE PERCENT (BEAKER) (test 0 % qntt=677) NEUTROPHILS ABSOLUTE COUNT (BEAKER) (test 7.70 K/ L 1.56-6.13 ywiu=935) LYMPHOCYTES ABSOLUTE COUNT (BEAKER) (test 1.99 K/ L 1.18-3.74 eypj=424) MONOCYTES ABSOLUTE COUNT (BEAKER) (test 1.34 K/ L 0.24-0.36 gvek=095) EOSINOPHILS ABSOLUTE COUNT (BEAKER) (test 0.80 K/ L 0.04-0.36 odrz=766) BASOPHILS ABSOLUTE COUNT (BEAKER) (test 0.05 K/ L 0.01-0.08 tnkn=400) IMMATURE GRANULOCYTES-RELATIVE PERCENT (BEAKER) 3 % 0-1 (test pdso=3103) POCT-GLUCOSE [id number] 21:10:00 Test Item Value Reference Range Comments POC-GLUCOSE METER (BEAKER) 209 mg/dL 70-110 TESTED AT [address] (test pvvo=5175) [place] [address] POCT-GLUCOSE [id number] 16:57:00 Test Item Value Reference Range Comments POC-GLUCOSE METER (BEAKER) 90 mg/dL 70-110 TESTED AT [address] (test kiud=3229) [place] [id number] POCT-GLUCOSE [id number] 12:39:00 Test Item Value Reference Range Comments POC-GLUCOSE METER (BEAKER) 63 mg/dL 70-110 TESTED AT [address] (test bvpa=1767) [place] [id number] BLOOD GAS, [id number] 11:19:00 Test Item Value Reference Range Comments PH ARTERIAL (BEAKER) (test uxxb=785) 7.43 7.35-7.45 PCO2 ARTERIAL (BEAKER) (test yben=605) 32 mmHg 35-45 PO2 ARTERIAL (BEAKER) (test lqrg=166) 226 mmHg 80-90 O2 SATURATION ARTERIAL (BEAKER) (test jerm=143) 99.5 % 96.0-97.0 HCO3 ARTERIAL (BEAKER) (test jfzn=540) 21 mmol/L 21-29 BASE EXCESS ARTERIAL (BEAKER) (test oeyc=858) -3.3 mmol/L -2.0-3.0 PATIENT TEMPERATURE (BEAKER) (test hqvt=3507) 36.9 C FIO2 (BEAKER) (test lsrp=5059) 60.0 % RAD, CHEST, 1 VIEW, NON [id number] 09:41:00Reason for exam:-> intubationShould this be performed [...] MDReport Verified Date/Time: 09/21/2017 09:41:46 Reading Location: [facility] Radiology Reading Room POCT-GLUCOSE [id number] 08:45:00 Test Item Value Reference Range Comments POC-GLUCOSE METER (BEAKER) 72 mg/dL 70-110 TESTED AT [facility] [address] [place] (test fkme=9922) [facility] [address] [id number] 06:31:00 Test Item Value Reference Range Comments MAGNESIUM (BEAKER) (test mxfx=341) 2.0 mg/dL 1.6-2.6 BASIC METABOLIC [id number] 06:31:00 Test Item Value Reference Range Comments SODIUM (BEAKER) (test 139 meq/L 136-145 yedh=739) POTASSIUM (BEAKER) (test 4.6 meq/L 3.5-5.1 awea=876) CHLORIDE (BEAKER) (test 109 meq/L 98-107 qpbj=922) CO2 (BEAKER) (test 19 meq/L 22-29 uvdy=069) BLOOD UREA NITROGEN 44 mg/dL 7-21 (BEAKER) (test eems=758) CREATININE (BEAKER) (test 3.07 mg/dL 0.57-1.25 hpae=873) GLUCOSE RANDOM (BEAKER) 83 mg/dL 70-105 (test ehef=183) CALCIUM (BEAKER) (test 9.5 mg/dL 8.4-10.2 hudi=569) EGFR (BEAKER) (test 15 mL/min/1.73 sq m ESTIMATED GFR IS NOT dsbv=5199) ACCURATE CREATININE CLEARANCE IN PREDICTING GLOMERULAR FILTRATION RATE. ESTIMATED GFR IS NOT APPLICABLE FOR DIALYSIS PATIENTS. CBC W/PLT COUNT & AUTO [id number] 05:56:00 Test Item Value Reference Range Comments WHITE BLOOD CELL COUNT (BEAKER) (test ovah=525) 12.8 K/ L 3.5-10.5 RED BLOOD CELL COUNT (BEAKER) (test qsnk=833) 2.67 M/ L 3.93-5.22 HEMOGLOBIN (BEAKER) (test ieko=648) 8.3 GM/DL 11.2-15.7 HEMATOCRIT (BEAKER) (test yedp=340) 25.4 % 34.1-44.9 MEAN CORPUSCULAR VOLUME (BEAKER) (test osfm=435) 95.1 fL 79.4-94.8 MEAN CORPUSCULAR HEMOGLOBIN (BEAKER) (test 31.1 pg 25.6-32.2 wzpn=933) MEAN CORPUSCULAR HEMOGLOBIN CONC (BEAKER) (test 32.7 GM/DL 32.2-35.5 yxxa=677) RED CELL DISTRIBUTION WIDTH (BEAKER) (test 14.3 % 11.7-14.4 htnl=720) PLATELET COUNT (BEAKER) (test yaxv=412) 394 K/CU MM 150-450 MEAN PLATELET VOLUME (BEAKER) (test msvq=121) 10.3 fL 9.4-12.3 NUCLEATED RED BLOOD CELLS (BEAKER) (test 0 /100 WBC 0-0 bsqu=053) NEUTROPHILS RELATIVE PERCENT (BEAKER) (test 63 % odfe=396) LYMPHOCYTES RELATIVE PERCENT (BEAKER) (test 16 % kiwp=901) MONOCYTES RELATIVE PERCENT (BEAKER) (test 11 % amzh=604) EOSINOPHILS RELATIVE PERCENT (BEAKER) (test 6 % liqh=083) BASOPHILS RELATIVE PERCENT (BEAKER) (test 0 % rsoo=893) NEUTROPHILS ABSOLUTE COUNT (BEAKER) (test 8.06 K/ L 1.56-6.13 qrlg=766) LYMPHOCYTES ABSOLUTE COUNT (BEAKER) (test 2.00 K/ L 1.18-3.74 nmtj=399) MONOCYTES ABSOLUTE COUNT (BEAKER) (test 1.43 K/ L 0.24-0.36 tqvf=941) EOSINOPHILS ABSOLUTE COUNT (BEAKER) (test 0.80 K/ L 0.04-0.36 yxjq=147) BASOPHILS ABSOLUTE COUNT (BEAKER) (test 0.05 K/ L 0.01-0.08 iwvc=531) IMMATURE GRANULOCYTES-RELATIVE PERCENT (BEAKER) 4 % 0-1 (test ugxm=0652) RAD, CHEST, 1 VIEW, NON [id number] 03:49:00Reason for exam:->PNAShould this be performed at [...] pneumothorax or acute bony abnormality. Signed: [facility] Verified Date/Time: 09/21/2017 03:49:47 Reading Location: [address] Reading Room POCT-GLUCOSE [id number] 22:14:00 Test Item Value Reference Range Comments POC-GLUCOSE METER (BEAKER) 173 mg/dL 70-110 TESTED AT [address] (test wbid=7581) [place] [address] LEGIONELLA ANTIGEN, [id number] 19:27:00 Test Item Value Reference Range Comments L. PNEUMOPHILA SEROGP 1 Negative - see Negative for L. UR AG (BEAKER) (test comment pneumophila serogroup 1 gdzi=7328) antigen, suggesting no recent or current infection with this serogroup. Legionellosis cannot be ruled out since other serogroups and species may cause disease. POCT-GLUCOSE [id number] 18:01:00 Test Item Value Reference Range Comments POC-GLUCOSE METER (BEAKER) 237 mg/dL 70-110 TESTED AT [address] (test isot=3984) [place] [id number] HEMOGLOBIN [id number] 14:19:00 Test Item Value Reference Range Comments HEMOGLOBIN A1C (BEAKER) (test znwo=095) 6.8 % 4.3-6.1 RESPIRATORY PANEL [id number] 13:56:00 Test Item Value Reference Range Comments HUMAN METAPNEUMOVIRUS (BEAKER) (test Not detected Not detected, Inconclusive nytx=7088) RHINOVIRUS (BEAKER) (test vzzn=6536) Not detected Not detected, Inconclusive INFLUENZA A (BEAKER) (test Not detected Not detected, Inconclusive ddiz=8853) INFLUENZA A SUBTYPE H1 (BEAKER) Not detected Not detected, Inconclusive (test ctqa=0413) INFLUENZA A SUBTYPE H3 (BEAKER) Not detected Not detected, Inconclusive (test lkwq=4527) INFLUENZA A SUBTYPE H1-2009 (BEAKER) Not detected Not detected, Inconclusive (test nuth=7557) INFLUENZA B (BEAKER) (test Not detected Not detected, Inconclusive zkih=8203) RESPIRATORY SYNCYTIAL VIRUS (BEAKER) Not detected Not detected, Inconclusive (test cvdf=8750) PARAINFLUENZA VIRUS 1 (BEAKER) (test Not detected Not detected, Inconclusive xnko=5792) PARAINFLUENZA VIRUS 2 (BEAKER) (test Not detected Not detected, Inconclusive dxqx=4842) PARAINFLUENZA VIRUS 3 (BEAKER) (test Not detected Not detected, Inconclusive yckk=2344) PARAINFLUENZA VIRUS 4 (BEAKER) (test Not detected Not detected, Inconclusive qnll=7368) ADENOVIRUS (BEAKER) (test bkgw=3360) Not detected Not detected, Inconclusive CORONAVIRUS 229E (BEAKER) (test Not detected Not detected, Inconclusive puwg=6620) CORONAVIRUS HKU1 (BEAKER) (test Not detected Not detected, Inconclusive akxg=0465) CORONAVIRUS NL63 (BEAKER) (test Not detected Not detected, Inconclusive kivp=1535) CORONAVIRUS OC43 (BEAKER) (test Not detected Not detected, Inconclusive isdi=9813) BORDETELLA PERTUSSIS (BEAKER) (test Not detected Not detected, Inconclusive axui=6260) CHLAMYDOPHILA PNEUMONIAE (BEAKER) Not detected Not detected, Inconclusive (test jcmm=8928) MYCOPLASMA PNEUMONIAE (BEAKER) (test Not detected Not detected, Inconclusive ydjj=8736) [id number] 13:17:00 Test Item Value Reference Range Comments PROCALCITONIN (BEAKER) (test cunk=2214) 2.35 ng/mL <0.05 SEPSIS RISK (ng/mL)Low: 0.05-0.50Intermediate: 0.51-2.00High: & gt;=2.01POCT-GLUCOSE [id number] 12:03:00 Test Item Value Reference Range Comments POC-GLUCOSE METER (BEAKER) 126 mg/dL 70-110 TESTED AT [address] (test ylaa=8017) [place] [address] B-TYPE NATRIURETIC FACTOR (BNP)2017-09-20 11:15:00 Test Item Value Reference Range Comments B-TYPE NATRIURETIC PEPTIDE (BEAKER) (test mgct=393) 22 pg/mL 0-100 LACTIC ACID, VENOUS, WHOLE [id number] 11:05:00 Test Item Value Reference Range Comments LACTATE BLOOD VENOUS (2) (BEAKER) (test 0.5 mmol/L 0.5-2.2 zrra=5380) Effective 01/27/2016: Units/Reference Range ChangeNew: 0.5-2.2 mmol/L Previous: 5 -20 mg/dLPOCT-GLUCOSE [id number] 10:09:00 Test Item Value Reference Range Comments POC-GLUCOSE METER (BEAKER) 104 mg/dL 70-110 TESTED AT [address] (test lhyz=4788) [place] [address] STREP PNEUMONIAE [id number] 09:55:00 Test Item Value Reference Range Comments STREP PNEUMONIAE ANTIGEN Presumptive negative for Presumptive negative for (AKER) (test pneumococcal pneumonia - pneumococcal pneumonia - lwlr=3496) see comment see commen Presumptive negative for pneumococcal pneumonia, suggesting no current or recent pneumococcal infection. Infection due to S. pneumoniae cannot be ruled out since the antigen present in the sample may be below the detection limit of the test.CBC W/PLT COUNT & AUTO [id number] 09:42:00 Test Item Value Reference Range Comments WHITE BLOOD CELL COUNT (BEAKER) (test jhbk=966) 12.4 K/ L 3.5-10.5 RED BLOOD CELL COUNT (BEAKER) (test shfx=438) 2.65 M/ L 3.93-5.22 HEMOGLOBIN (BEAKER) (test fcwf=799) 8.2 GM/DL 11.2-15.7 HEMATOCRIT (BEAKER) (test tqbp=719) 25.3 % 34.1-44.9 MEAN CORPUSCULAR VOLUME (BEAKER) (test qxcu=685) 95.5 fL 79.4-94.8 MEAN CORPUSCULAR HEMOGLOBIN (BEAKER) (test 30.9 pg 25.6-32.2 pxeo=363) MEAN CORPUSCULAR HEMOGLOBIN CONC (BEAKER) (test 32.4 GM/DL 32.2-35.5 azyx=946) RED CELL DISTRIBUTION WIDTH (BEAKER) (test 14.3 % 11.7-14.4 bima=905) PLATELET COUNT (BEAKER) (test uryv=165) 328 K/CU MM 150-450 MEAN PLATELET VOLUME (BEAKER) (test oocs=177) 10.8 fL 9.4-12.3 NUCLEATED RED BLOOD CELLS (BEAKER) (test 0 /100 WBC 0-0 iraa=497) IMMATURE GRANULOCYTES-RELATIVE PERCENT (BEAKER) 6 % 0-1 (test nlnj=2965) (MANUAL DIFFERENTIAL)2017-09-20 09:42:00 Test Item Value Reference Range Comments NEUTROPHILS - REL (DIFF) (BEAKER) (test 54 % izhm=9263) LYMPHOCYTES - REL (DIFF) (BEAKER) (test 13 % jfsz=6512) MONOCYTES - REL (DIFF) (BEAKER) (test zwmz=9493) 11 % EOSINOPHILS - REL (DIFF) (BEAKER) (test 6 % pylg=2575) METAMYELOCYTES-REL (DIFF) (BEAKER) (test 3 % 0-0 uiro=488) MYELOCYTES-REL (DIFF) (BEAKER) (test kyyv=8791) 2 % 0-0 BANDS - REL (DIFF) (BEAKER) (test keay=8484) 11 % 0-10 NEUTROPHILS - ABS (DIFF) (BEAKER) (test 6.70 K/ L 1.80-8.00 iohi=7658) LYMPHOCYTES - ABS (DIFF) (BEAKER) (test 1.61 K/ L 1.48-4.50 ytpi=3050) MONOCYTES - ABS (DIFF) (BEAKER) (test eybq=2203) 1.36 K/ L 0.00-1.30 EOSINOPHILS - ABS (DIFF) (BEAKER) (test 0.74 K/ L 0.00-0.50 vjay=5210) METAMYELOCTYES - ABS (DIFF) (BEAKER) (test 0.37 K/ L 0.00-0.00 bcqx=965) BANDS-ABS (DIFF) (BEAKER) (test yjue=1899) 1.4 K/ L 0.0-0.8 MYELOCYTES-ABS (DIFF) (BEAKER) (test cgyg=3688) 0.25 K/ L 0.00-0.00 TOTAL COUNTED (BEAKER) (test ekna=4934) 100 BANDS + SEGMENTED NEUTROPHILS (BEAKER) (test 8.06 mqnb=2698) WBC MORPHOLOGY (BEAKER) (test fawn=834) Normal PLT MORPHOLOGY (BEAKER) (test styl=464) Normal ANISOCYTOSIS (BEAKER) (test ylyn=430) 2+ moderate POIKILOCYTES (BEAKER) (test fguy=299) 2+ moderate POCT-GLUCOSE [id number] 08:34:00 Test Item Value Reference Range Comments POC-GLUCOSE METER (BEAKER) 55 mg/dL 70-110 Notified HONG LERMA/TESTED AT [facility] (test epst=7117) [address] [facility] [address] [id number] 04:42:00 Test Item Value Reference Range Comments FERRITIN (BEAKER) (test ibte=376) 535 ng/mL 5-275 IRON, TIBC, % SAT. (WITHOUT FERRITIN)2017-09-20 04:22:00 Test Item Value Reference Range Comments IRON (BEAKER) (test rlge=503) 27 ug/dL 40-160 TOTAL IRON BINDING CAPACITY (BEAKER) (test 186 ug/dL 250-450 lxxp=266) IRON % SATURATION (2) (BEAKER) (test ydnb=0194) 15 % 20-55 [id number] 03:41:00 Test Item Value Reference Range Comments MAGNESIUM (BEAKER) (test nibb=442) 1.8 mg/dL 1.6-2.6 [id number] 03:41:00 Test Item Value Reference Range Comments PHOSPHORUS (BEAKER) (test wlcr=727) 4.2 mg/dL 2.3-4.7 BASIC METABOLIC [id number] 03:32:00 Test Item Value Reference Range Comments SODIUM (BEAKER) (test 138 meq/L 136-145 pslq=800) POTASSIUM (BEAKER) (test 4.3 meq/L 3.5-5.1 eavr=415) CHLORIDE (BEAKER) (test 110 meq/L 98-107 mcrd=206) CO2 (BEAKER) (test 19 meq/L 22-29 dfkc=667) BLOOD UREA NITROGEN 45 mg/dL 7-21 (BEAKER) (test nwwz=573) CREATININE (BEAKER) (test 2.64 mg/dL 0.57-1.25 gviw=821) GLUCOSE RANDOM (BEAKER) 116 mg/dL 70-105 (test gxzu=577) CALCIUM (BEAKER) (test 8.8 mg/dL 8.4-10.2 gynv=819) EGFR (BEAKER) (test 18 mL/min/1.73 sq m ESTIMATED GFR IS NOT jbsd=4946) ACCURATE CREATININE CLEARANCE IN PREDICTING GLOMERULAR FILTRATION RATE. ESTIMATED GFR IS NOT APPLICABLE FOR DIALYSIS PATIENTS. CREATINE KINASE (CK), TOTAL AND [id number] 03:32:00 Test Item Value Reference Range Comments CREATINE KINASE TOTAL (BEAKER) (test grlz=434) 76 U/L 29-200 CREATINE KINASE-MB (BEAKER) (test unjy=311) 1.9 ng/mL 0.0-6.6 CREATINE KINASE-MB INDEX (BEAKER) (test tzqm=020) 2.5 % CK-MB Reference Range:<6.7 Normal6.7-10.0 Borderline>10.0 AbnormalTROPONIN [id number] 03:32:00 Test Item Value Reference Range Comments TROPONIN I (BEAKER) (test iqpf=196) < ng/mL 0.00-0.03 Troponin I (TnI) levels [...] acidosis, acute neurological disease, and persistent tachyarrhythmia.POCT-GLUCOSE [id number] 01:15:00 Test Item Value Reference Range Comments POC-GLUCOSE METER (BEAKER) 157 mg/dL 70-110 TESTED AT [facility] [address] [place] [address] (test acqh=1223) [facility] [address] RAD, CHEST, 1 VIEW, NON [id number] 00:10:00Reason for exam:->RLL PNAShould this be performed [...] MDReport Verified Date/Time: 09/20/2017 00:10:56 Reading Location: [address] Ortho Consult Reading Room
[2018-08-08] MEDS ORDERED: D50W 25 GM/50 ML SYRINGE IV ONE (06:36)
[2018-08-08] MEDS ORDERED: D5 0.9 NS 1,000 ML IV ONE (06:36)
[2018-08-08 07:13] LABS: Potassium 3.5 mmol/L (3.5-5.1)
[2018-08-08 07:15] LABS: Absolute Neutrophil 6.2 K/uL (1.8-8.0); Basophils % 0.7 % (0-1.3); Eosinophils % 4.8 % (0-4.4); Hematocrit 31.1 % (36.0-45.0); Lymphocytes % 11.2 % (15.3-44.8); MCH 34.4 pg (27.0-35.0); MCV 102.5 fL (80-100); MPV 9.3 fL (7.6-11.3); Monocytes % 11.5 % (3.3-12.3); RBC Red Blood Cell Count 3.04 M/uL (3.86-4.86)
--- NOTE | 2018-08-08 08:10 | RAD REPORT ---
EXAM DESCRIPTION: CT - CTHCSPWOC - 08/08/2018 7:10 am CLINICAL HISTORY: Trauma, head and neck injury. PAIN COMPARISON: No comparisons TECHNIQUE: Axial 5 mm thick images of the head were obtained. Axial 2 mm thick images of the cervical spine were obtained with sagittal and coronal reconstruction images generated and reviewed. All CT scans are performed using dose optimization technique as appropriate and may include automated exposure control or mA/KV adjustment according to patient size. FINDINGS: CT HEAD WITHOUT CONTRAST: No acute hemorrhage, hydrocephalus or extra-axial collection is identified.No areas of brain edema or midline shift. The paranasal sinuses and mastoids are clear.The calvarium is intact. CT CERVICAL SPINE WITHOUT CONTRAST: No fracture or subluxation.Midcervical spine degenerative changes are present with disc thinning post erior osteophyte.No prevertebral soft tissues swelling is identified. Diffuse thyroid goiter seen. IMPRESSION: No acute intracranial or cervical spine findings.
--- NOTE | 2018-08-08 08:23 | RAD REPORT ---
EXAM DESCRIPTION: RAD - Ankle Right 3 View - 08/08/2018 6:43 am CLINICAL HISTORY: PAIN COMPARISON: No comparisons FINDINGS: Soft tissue swelling is present about the ankle. No fracture or dislocation seen. Prominen t calcaneal spurs are evident.
--- NOTE | 2018-08-08 09:28 | EDPHYS ---
Physician Documentation [facility] Name: Wendy Ziegler Age: 63 yrs Sex: Female : 1955 Arrival Date: 08/08/2018 Time: 05:54 Bed 4 Private MD: ED Physician Conner Kim HPI: 08/08 06:24 This 63 yrs old Female presents to ER via Unassigned with complaints of fall gs hypoglycemia. 06:24 The patient or guardian reports hypoglycemia. Onset: The symptoms/episode gs began/occurred this morning. Associated signs and symptoms: Pertinent negatives: constipation, decreased urine output. Current symptoms: In the emergency department the patient's symptoms have improved, markedly. The patient has experienced similar episodes in the past, a few times. iddm, still dizzy. Historical: - Allergies: 06:01 Bactrim; bb 06:01 Codeine; bb 06:01 Remicade; bb 06:01 victoza; bb - PMHx: 06:01 COPD; Diabetes - IDDM; Hyperlipidemia; Hypertension; Pneumonia; Rheumatoid Arthritis; bb 06:27 chronic kidney disease; gs 07:15 Sleep Apnea; aa5 - PSHx: 06:01 spleenectomy; Knee surgery; back surg; tens unit in back; bb - Immunization history:: Adult Immunizations up to date. - Social history:: Smoking status: Patient/guardian denies using tobacco. - Ebola Screening: : No symptoms or risks identified at this time. ROS: 06:27 MS/extremity: Positive for pain, swelling, tenderness, r ankle injured in fall tonite. gs 18:49 Constitutional: Negative for fever, chills, and weight loss, Eyes: Negative for injury, kdr pain, redness, and discharge, Neck: Negative for injury, pain, and swelling, Cardiovascular: Negative for chest pain, palpitations, and edema, Respiratory: Negative for shortness of breath, cough, wheezing, and pleuritic chest pain, Abdomen/GI: Negative for abdominal pain, nausea, vomiting, diarrhea, and constipation, Back: Negative for injury and pain, : Negative for injury, bleeding, discharge, and swelling, MS/Extremity: Negative for injury and deformity, Skin: Negative for injury, rash, and discoloration, Psych: Negative for depression, anxiety, suicide ideation, homicidal ideation, and hallucinations, Allergy/Immunology: Negative for hives, rash, and allergies, Hematologic/Lymphatic: Negative for swollen nodes, abnormal bleeding, and unusual bruising. 18:49 Neuro: Positive for altered mental status, weakness. 18:49 Endocrine: Positive for Negative for cold intolerance, heat intolerance. Exam: 06:27 Head/Face: Normocephalic, atraumatic. Eyes: Pupils equal round and reactive to light, gs extra-ocular motions intact. Lids and lashes normal. Conjunctiva and sclera are non-icteric and not injected. Cornea within normal limits. Periorbital areas with no swelling, redness, or edema. ENT: Nares patent. No nasal discharge, no septal abnormalities noted. Tympanic membranes are normal and external auditory canals are clear. Oropharynx with no redness, swelling, or masses, exudates, or evidence of obstruction, uvula midline. Mucous membranes moist. Neck: Trachea midline, no thyromegaly or masses palpated, and no cervical lymphadenopathy. Supple, full range of motion without nuchal rigidity, or vertebral point tenderness. No Meningismus. Chest/axilla: Normal chest wall appearance and motion. Nontender with no deformity. No lesions are appreciated. Cardiovascular: Regular rate and rhythm with a normal S1 and S2. No gallops, murmurs, or rubs. Normal PMI, no JVD. No pulse deficits. Respiratory: Lungs have equal breath sounds bilaterally, clear to auscultation and percussion. No rales, rhonchi or wheezes noted. No increased work of breathing, no retractions or nasal flaring. Abdomen/GI: Soft, non-tender, with normal bowel sounds. No distension or tympany. No guarding or rebound. No evidence of tenderness throughout. Back: No spinal tenderness. No costovertebral tenderness. Full range of motion. Skin: Warm, dry with normal turgor. Normal color with no rashes, no lesions, and no evidence of cellulitis. Neuro: Awake and alert, GCS 15, oriented to person, place, time, and situation. Cranial nerves II-XII grossly intact. Motor strength 5/5 in all extremities. Sensory grossly intact. Cerebellar exam normal. Normal gait. 06:27 Constitutional: The patient appears alert, awake. 06:27 Musculoskeletal/extremity: Circulation is intact in all extremities. Sensation intact. Joints: the right ankle displays painful range of motion, swelling, tenderness. Vital Signs: 06:01 BP 121 / 63; Pulse 50; Resp 10 S; Pulse Ox 100% on R/A; Weight 116.12 kg (R); Height 5 bb ft. 6 in. (167.64 cm) (R); 07:15 BP 156 / 70; Pulse 57; Resp 14 S; Temp 95.6(TE); Pulse Ox 83% on R/A; Pain 6/10; aa5 07:16 Pulse Ox 96% on 2 lpm NC; aa5 07:40 BP 145 / 73; Pulse 57; Resp 16 S; Pulse Ox 100% on 2 lpm NC; aa5 08:30 BP 124 / 62; Pulse 54; Resp 18 S; Temp 95.7(TE); Pulse Ox 98% on 2 lpm NC; aa5 09:00 BP 113 / 73; Pulse 57; Resp 14 S; Temp 91.6(C); Pulse Ox 97% on 2 lpm NC; aa5 09:22 Temp 92.1(C); aa5 09:45 BP 112 / 64; Pulse 61; Resp 18 S; Temp 93.1(C); Pulse Ox 100% on 2 lpm NC; aa5 10:30 BP 127 / 77; Pulse 60; Resp 16 S; Temp 93.2(C); Pulse Ox 95% on 2 lpm NC; aa5 11:15 BP 145 / 70; Pulse 64; Resp 18 S; Temp 94.1(C); Pulse Ox 97% on 2 lpm NC; aa5 12:00 BP 130 / 62; Pulse 56; Resp 16 S; Temp 95.0(C); Pulse Ox 97% on 2 lpm NC; aa5 13:00 BP 133 / 65; Pulse 60; Resp 16 S; Temp 95.1(C); Pulse Ox 98% on 2 lpm NC; Pain 0/10; aa5 06:01 Body Mass Index 41.32 (116.12 kg, 167.64 cm) bb 07:15 Unable to obtain oral temperature, Dr. Kim notified. Pt's O2 sat decreases when pt aa5 is asleep. Pt reports hx of sleep apnea. 08:30 Unable to obtain oral temperature. aa5 MDM: 06:10 Patient medically screened. gs 06:27 Differential diagnosis: hypoglycemic episode, renal failure, med adverse reaction, gs fracture, sprain. Data reviewed: vital signs, nurses notes. 07:45 ED course: The patient continues to be stable. She currently getting D5 infusion and kdr last BG was 105. She was noted to be hypothermic (95). Will get cath UA . 08/08 05:59 Order name: glucometer results - FOR PT WITH NO ID; Complete Time: 07:30 08/08 06:11 Order name: CBC with Diff; Complete Time: 07:30 08/08 06:11 Order name: Basic Metabolic Panel; Complete Time: 07:30 08/08 09:17 Order name: Glucose, Ancillary Testing; Complete Time: 09:28 EDNY 08/08 09:17 Order name: Glucose, Ancillary Testing; Complete Time: 09:28 [facility] 08/08 09:17 Order name: Glucose, Ancillary Testing; Complete Time: 09:28 EDNY 08/08 06:11 Order name: CT Head C Spine; Complete Time: 08:36 08/08 06:11 Order name: Ankle Right 3 View XRAY; Complete Time: 08:36 08/08 09:17 Order name: Glucose, Ancillary Testing; Complete Time: 09:28 EDNY 08/08 09:17 Order name: Glucose, Ancillary Testing; Complete Time: 09:28 [facility] 08/08 09:28 Order name: CXR XRAY [facility] 08/08 09:33 Order name: Urine Dipstick--Ancillary (enter results) 08/08 09:34 Order name: Urine Dipstick-Ancillary [facility] 08/08 10:46 Order name: RAD [facility] 08/08 06:11 Order name: Accucheck Blood Glucose; Complete Time: 06:37 08/08 07:01 Order name: Blood Glucose Level: repeat Q 30 minutes; Complete Time: 07:05 08/08 09:18 Order name: Della: VO received at 0855; Complete Time: 09:18 aa5 Administered Medications: 06:35 Drug: D5-NS 1000 ml Route: IV; Rate: 100 ml/hr; Site: right antecubital; bb 06:35 Drug: D50W 25 ml Route: IVP; Site: right antecubital; bb Point of Care Testing: Blood Glucose: 06:02 Blood Glucose: 125 mg/dL; mw2 06:29 Blood Glucose: 60 mg/dL; bb 07:03 Blood Glucose: 105 mg/dL; aa5 07:42 Blood Glucose: 108 mg/dL; aa5 08:34 Blood Glucose: 95 mg/dL; dh3 09:00 Blood Glucose: 91 mg/dL; aa5 10:49 Blood Glucose: 93 mg/dL; ss 11:50 Blood Glucose: 105 mg/dL; aa5 Ranges: Critical Glucose Levels:Adult <50 mg/dl or >400 mg/dl <40 mg/dl or >180 mg/dl Disposition: 08/08/18 09:27 Hospitalization ordered by Edy Berger for Observation. Preliminary diagnosis are Altered mental status, unspecified, Hypothermia, Hypoglycemia, unspecified, Diabtetes Mellitus. - Bed requested for Intensive Care Unit. - Status is Observation. aa5 - Condition is Fair. - Problem is new. - Symptoms have improved. UTI on Admission? No Signatures: Dispatcher [employer] EDMS Oxana Recinos Kevin, MD MD [facility] Roxie Castro RN RN Sona Newton RN RN aa5 Kenney Roberson MD MD gs Corrections: (The following items were deleted from the chart) 10: 09:27 Hospitalization Ordered by Edy Berger MD for Observation. Preliminary diagnosis bd is Altered mental status, unspecified; Hypothermia; Hypoglycemia, unspecified; Diabtetes Mellitus. Bed requested for Telemetry/MedSurg (observation). Status is Observation. Condition is Fair. Problem is new. Symptoms have improved. UTI on Admission? No. kdr 12:32 10:29 08/08/2018 09:27 Hospitalization Ordered by Edy Berger MD for Observation. bd Preliminary diagnosis is Altered mental status, unspecified; Hypothermia; Hypoglycemia, unspecified; Diabtetes Mellitus. Bed requested for Telemetry/MedSurg (observation). Status is Observation. Condition is Fair. Problem is new. Symptoms have improved. UTI on Admission? No. bd 13:55 12:32 08/08/2018 09:27 Hospitalization Ordered by Edy Berger MD for Observation. aa5 Preliminary diagnosis is Altered mental status, unspecified; Hypothermia; Hypoglycemia, unspecified; Diabtetes Mellitus. Bed requested for Intensive Care Unit. Status is Observation. Condition is Fair. Problem is new. Symptoms have improved. UTI on Admission? No. bd
--- NOTE | 2018-08-08 09:28 | ER ---
Nurse's Notes [facility] Name: Wendy Ziegler Age: 63 yrs Sex: Female : 1955 Arrival Date: 08/08/2018 Time: 05:54 Bed 4 Private MD: Diagnosis: Altered mental status, unspecified;Hypothermia;Hypoglycemia, unspecified;Diabtetes Mellitus Presentation: 08/08 05:58 Presenting complaint: EMS states: they were toned out for report of pt being bb unresponsive with blood glucose of 44 on arrival pt had snoring respirations they initiated an IV and started D10 IV on arrival to ED pt BGL 125. 06:00 Method Of Arrival: EMS: [facility] bb 06:00 Transition of care: patient was not received from another setting of care. Onset of bb symptoms was August 08, 2018. Risk Assessment: Do you want to hurt yourself or someone else? Patient reports no desire to harm self or others. Initial Sepsis Screen: Does the patient meet any 2 criteria? No. Patient's initial sepsis screen is negative. Does the patient have a suspected source of infection? No. Patient's initial sepsis screen is negative. Care prior to arrival: IV initiated. 20 GA, in the right antecubital area. 06:00 Acuity: SINDY 2 bb 07:01 Note pt was given D10 25gms IVP by EMS prior to arrival. bb Historical: - Allergies: 06:01 Bactrim; bb 06:01 Codeine; bb 06:01 Remicade; bb 06:01 victoza; bb - PMHx: 06:01 COPD; Diabetes - IDDM; Hyperlipidemia; Hypertension; Pneumonia; Rheumatoid Arthritis; bb 06:27 chronic kidney disease; gs 07:15 Sleep Apnea; aa5 - PSHx: 06:01 spleenectomy; Knee surgery; back surg; tens unit in back; bb - Immunization history:: Adult Immunizations up to date. - Social history:: Smoking status: Patient/guardian denies using tobacco. - Ebola Screening: : No symptoms or risks identified at this time. Screenin:07 Abuse screen: Denies threats or abuse. Nutritional screening: No deficits noted. ea Assessment: 05:55 General: Appears in no apparent distress. Behavior is drowsy. Pain: Denies pain. Neuro: ea Level of Consciousness is awake, alert, obeys commands, Oriented to person, place, time, situation. Neuro: Level of Consciousness is Oriented to. Cardiovascular: Heart tones S1 S2 present Patient's skin is warm and dry. Respiratory: Airway is patent Respiratory effort is even, unlabored, Respiratory pattern is regular, symmetrical, Breath sounds are clear bilaterally. GI: Bowel sounds present X 4 quads. Derm: Skin is dry, Skin is pale, Skin temperature is cold warm blanket placed on pt, tolerated well. 06:30 Reassessment: BGL repeated now 60 Dr Robreson notified new orders received pt medicated bb see NOV. 07:18 General: Appears comfortable, Behavior is drowsy. Pain: Complains of pain in right aa5 ankle Pain does not radiate. Pain currently is 6 out of 10 on a pain scale. Quality of pain is described as aching, Pain began 1 day ago. Pt reports she rolled her ankle yesterday. Is continuous. Neuro: Level of Consciousness is awake, alert, obeys commands, Oriented to person, place, time, situation, Pt states "I just feel really sleepy" . Bindery Machine Setter are equal bilaterally Moves all extremities. Speech is normal, Facial symmetry appears normal, Pupils are PERRLA. Cardiovascular: Heart tones S1 S2 present Rhythm is regular. Respiratory: Airway is patent Respiratory effort is even, unlabored, Respiratory pattern is regular, symmetrical, Breath sounds are clear bilaterally. GI: Abdomen is obese, Bowel sounds present X 4 quads. Abd is soft and non tender X 4 quads. : No signs and/or symptoms were reported regarding the genitourinary system. EENT: No signs and/or symptoms were reported regarding the EENT system. Derm: Skin is dry, Skin is pale, Skin temperature is cool Bruising that is green, on right great toe. Musculoskeletal: Range of motion: intact in all extremities. 07:18 Reassessment: Pt back from radiology. Awaiting lab results and radiology results. Pt aa5 and notified of wait time. Lance stewart applied per Dr. Kim. . 08:15 Reassessment: Pt resting in bed with eyes closed. Pt awakens to verbal stimuli. aa5 Respirations even and unlabored. Pt states "I feel warmer now". Pt's skin is pale/warm/dry. . 09:00 Reassessment: Pt resting in bed with eyes closed, respirations even and unlabored, skin aa5 is pale/warm/dry. Pt's remains at bedside. . 09:45 Reassessment: Pt resting in bed with eyes closed, respirations even and unlabored, skin aa5 is pale/warm/dry. Pt awaken easily to verbal stimuli. Pt is A \\T\\ O x 4. . 10:30 Reassessment: Patient and/or family updated on plan of care and expected duration. Pain aa5 level reassessed. Patient denies pain at this time. Pt lying down in bed. Pt's remains at bedside. . 11:30 Reassessment: Pt resting in bed with eyes closed, pt easy to arouse to verbal stimuli aa5 at this time. Respirations even and unlabored respirations, skin is pale/warm/dry. Pt's at bedside. Awaiting room assignment. . Neuro: Level of Consciousness is awake, alert, obeys commands, Oriented to person, place, time, situation. Respiratory: Airway is patent Respiratory effort is even, unlabored, Respiratory pattern is regular, symmetrical. Derm: Skin is dry, Skin is pale, Skin temperature is warm. 12:45 Reassessment: Patient is alert, oriented x 3, equal unlabored respirations, skin aa5 warm/dry/pink. Patient denies pain at this time. Patient states feeling better. Pt ate 100% of lunch, pt tolerated well. . 13:45 Reassessment: Patient is alert, oriented x 3, equal unlabored respirations, skin aa5 warm/dry/pink. Vital Signs: 06:01 BP 121 / 63; Pulse 50; Resp 10 S; Pulse Ox 100% on R/A; Weight 116.12 kg (R); Height 5 bb ft. 6 in. (167.64 cm) (R); 07:15 BP 156 / 70; Pulse 57; Resp 14 S; Temp 95.6(TE); Pulse Ox 83% on R/A; Pain 6/10; aa5 07:16 Pulse Ox 96% on 2 lpm NC; aa5 07:40 BP 145 / 73; Pulse 57; Resp 16 S; Pulse Ox 100% on 2 lpm NC; aa5 08:30 BP 124 / 62; Pulse 54; Resp 18 S; Temp 95.7(TE); Pulse Ox 98% on 2 lpm NC; aa5 09:00 BP 113 / 73; Pulse 57; Resp 14 S; Temp 91.6(C); Pulse Ox 97% on 2 lpm NC; aa5 09:22 Temp 92.1(C); aa5 09:45 BP 112 / 64; Pulse 61; Resp 18 S; Temp 93.1(C); Pulse Ox 100% on 2 lpm NC; aa5 10:30 BP 127 / 77; Pulse 60; Resp 16 S; Temp 93.2(C); Pulse Ox 95% on 2 lpm NC; aa5 11:15 BP 145 / 70; Pulse 64; Resp 18 S; Temp 94.1(C); Pulse Ox 97% on 2 lpm NC; aa5 12:00 BP 130 / 62; Pulse 56; Resp 16 S; Temp 95.0(C); Pulse Ox 97% on 2 lpm NC; aa5 13:00 BP 133 / 65; Pulse 60; Resp 16 S; Temp 95.1(C); Pulse Ox 98% on 2 lpm NC; Pain 0/10; aa5 06:01 Body Mass Index 41.32 (116.12 kg, 167.64 cm) bb 07:15 Unable to obtain oral temperature, Dr. Kim notified. Pt's O2 sat decreases when pt aa5 is asleep. Pt reports hx of sleep apnea. 08:30 Unable to obtain oral temperature. aa5 ED Course: 05:54 Patient arrived in ED. ea 05:55 Patient has correct armband on for positive identification. Placed in gown. Bed in low ea position. Call light in reach. Side rails up X2. 06:01 Arm band placed on Patient placed in an exam room, on a stretcher, on monitoring and evaluation advisor, bb on pulse oximetry. 06:04 Kenney Roberson MD is Attending Physician. gs 06:27 Rocio Tong, HONG is Primary Nurse. ea 06:40 X-ray completed. Portable x-ray completed in exam room. Patient tolerated procedure kw well. 06:41 Ankle Right 3 View XRAY In Process Unspecified. EDMS 07:03 Triage completed. bb 07:[address] via stretcher. aa5 07:06 Report given to Laura PITTS. ea 07:10 CT Head C Spine In Process Unspecified. EDMS 07:20 Maintain EMS IV. Dressing intact. Good blood return noted. Site clean \\T\\ dry. Gauge \\T\\ aa 5 site: 20 G to R AC. 07:29 Attending Physician role handed off by Kenney Roberson MD kdr 07:29 Conner Kim MD is Attending Physician. kdr 09:00 Hull cath inserted, using sterile technique, 18 Fr., by oh, balloon inflated, to aa5 gravity drainage, urine specimen collected. returned clear yellow urine. Patient tolerated well. 09:26 Edy Berger MD is Hospitalizing Provider. kdr 10:03 X-ray completed. Portable x-ray completed in exam room. Patient tolerated procedure jb2 well. 13:55 Patient admitted, IV remains in place. aa5 13:55 No provider procedures requiring assistance completed. aa5 Administered Medications: 06:35 Drug: D5-NS 1000 ml Route: IV; Rate: 100 ml/hr; Site: right antecubital; bb 06:35 Drug: D50W 25 ml Route: IVP; Site: right antecubital; bb Point of Care Testing: Blood Glucose: 06:02 Blood Glucose: 125 mg/dL; mw2 06:29 Blood Glucose: 60 mg/dL; bb 07:03 Blood Glucose: 105 mg/dL; aa5 07:42 Blood Glucose: 108 mg/dL; aa5 08:34 Blood Glucose: 95 mg/dL; dh3 09:00 Blood Glucose: 91 mg/dL; aa5 10:49 Blood Glucose: 93 mg/dL; ss 11:50 Blood Glucose: 105 mg/dL; aa5 Ranges: Output: 13:45 Urine: 1000ml (Hull); Total: 1000ml. aa5 Outcome: 09:27 Decision to Hospitalize by Provider. kdr 13:45 Admitted to ICU accompanied by nurse, accompanied by tech, via stretcher, room 6, with aa5 oxygen, on monitor, with chart, Report called to HONG Hernandez 13:45 Condition: stable 13:45 Instructed on the need for admit, Demonstrated understanding of instructions. 13:55 Patient left the ED. aa5 Signatures: Dispatcher [employer] EDMS Conner Kim MD MD kdr Eddie Mendez jb2 Roxie Castro RN RN bb Sona Serrano RN RN aa5 Michell Lynch RN RN ss Whitley, Kimberlee kw Herrera, Deanna 3 Rocio Tong RN RN ea Starr, Gregory, MD MD Serena Samaniego 2 Corrections: (The following items were deleted from the chart) 07:07 05:55 Derm: Skin is pink, warm \\T\\ dry. bozena ea 08:42 08:30 BP 124 / 62; Pulse 54bpm; Resp 18bpm; Spontaneous; Pulse Ox 98% 2 lpm Nasal aa5 Cannula; aa5 09:20 07:15 BP 156 / 70; Pulse 57bpm; Resp 14bpm; Spontaneous; Pulse Ox 90% RA; Temp 95.6F aa5 Temporal; Pain 6/10; Unable to obtain oral temperature, Dr. Kim notified. ; aa5
[2018-08-08] MEDS ORDERED: ONDANSETRON 4 MG/2 ML VIAL IV PRN (09:41)
[2018-08-08] MEDS ORDERED: ACETAMINOPHEN 500 MG TAB PO PRN (09:41)
[2018-08-08] MEDS ORDERED: D5 0.45 NS 1,000 ML IV SCH (10:00)
[2018-08-08 10:42] LABS: Urine Blood NEGATIVE (NEG); Urine Glucose NEGATIVE (NEG); Urine Protein 3+ (NEG)
--- NOTE | 2018-08-08 10:46 | RAD REPORT ---
EXAM DESCRIPTION: jC Single View08/08/2018 10:05 am CLINICAL HISTORY: Shortness of breath COMPARISON: April 2018 FINDINGS: The lungs are mildly hazy. The heart is moderately enlarged IMPRESSION: Mild interstitial pulmonary edema is suspected
[2018-08-08 14:19] VITALS: BMI 44.1
[2018-08-08] MEDS ORDERED: ABATACEPT SQ SCH (16:30)
[2018-08-08] MEDS: CARVEDILOL 25 MG TAB PO SCH (16:44)
[2018-08-08] MEDS: HYDRALAZINE HCL 25 MG TABLET PO SCH (16:44)
[2018-08-08] MEDS: ENOXAPARIN 30 MG/0.3 ML SQ SCH (16:46)
--- NOTE | 2018-08-08 16:51 | CON ---
Date of Consultation: 08/08/2018 Reason For Consult: Chronic renal insufficiency. History Of Present Illness: Ms. Ziegler is a 63-year-old female with past medical history significant for type 2 diabetes, diabetic nephropathy, and rheumatoid arthritis, who was found by her un conscious and was found to have severe hypoglycemia with a blood sugar of 44, and she was brought int o the emergency room for further evaluation, has been sent over to the ICU for persistent hypoglycemi a. She has been started on D5 normal saline, and her sugar most recently was 244, and she feels much better. Past Medical History: Significant for history of CKD stage 4; history of congestive heart failure; h istory of respiratory failure earlier this year when she was hospitalized at [facility] for severe pulmonary edema, pleural effusion, and severe pneumonia; history of rheumatoid arthritis , on chronic medications; hypertension; and chronic hypokalemia. Past Surgical History: Significant for history of spine surgery in the past. Social History: Lives at home with her . No history of smoking, alcohol, or drug use reporte d. Family History: Noncontributory. Review of Systems: Positive for some weakness and lethargy at this time, but denies any chest pain or shortness of breat h. Denies any abdominal pain. Reports good compliance with her medications. All other review of sy stems are negative. Physical Examination: Vital signs: Showing temperature of 95.6, pulse rate of 57, respiratory rate of 16, and blood pressu re 145/73. General: She appears in no acute distress. HEENT: Atraumatic head. Oral mucosa was dry. Lungs: Clear to auscultation. Heart: Auscultation of the heart revealed regular rate and rhythm. Abdomen: Obese and nontender. Extremities: Did not reveal any evidence of edema. Laboratory Data: At this time are showing a stable hemoglobin of 10.5, hematocrit of 31.1, platelet count of 338. BMP results showing sodium of 141, potassium of 3.5, chloride of 110, BUN of 50, creat inine of 3.5, which is at her baseline. Urinalysis was positive for proteinuria, but negative for an y urinary tract infection. Medications: Current medications have been reviewed. Impression: 1.Chronic renal insufficiency stage 4 secondary to underlying diabetic nephropathy, currently stable renal function. 2.History of chronic congestive heart failure. The patient is on p.o. Lasix at home. I will discon tinue IV fluids and start her on p.o. Lasix tomorrow. 3.Type 2 diabetes. The patient with severe hypoglycemia. Possibly needs to be cut back on long act ing insulin and monitored closely. 4.Hypertension, stable. 5.Chronic anemia. The patient is on Epogen at home to maintain her hemoglobin level. Currently, he r hemoglobin is stable. We will follow up and give her a dose of Epogen if it drops further. Plan: Overall, the patient is doing much better at this time. Hypoglycemia seems to be improving. We will need to cut back on the long-acting insulin. Discontinue IV fluids. Monitor her volume stat us and renal function closely, and follow up with her. Thank you very much for this consultation. Please do not hesitate to call us with any questions or c oncerns. MARICHUY/TONY Voice ID: [id number] Report ID: [id number]
[2018-08-08] MEDS: FUROSEMIDE 20 MG TABLET PO SCH (16:58)
[2018-08-08] MEDS ORDERED: FUROSEMIDE 20 MG TABLET PO SCH (17:00)
[2018-08-08] MEDS: POTASSIUM CL SA 10 MEQ TAB PO SCH (20:00)
[2018-08-08] MEDS: PREGABALIN 50 MG CAP PO SCH (20:00)
[2018-08-08] MEDS: SODIUM BICARB 325 MG TAB PO SCH (20:00)
[2018-08-08] MEDS: ATORVASTATIN 10 MG TAB PO SCH (20:00)
[2018-08-08] MEDS: HYDROXYCHLOROQUINE 200MG TAB PO SCH (20:01)
[2018-08-08] MEDS ORDERED: HOME MED 1 EA UNK (Potassium Chloride [Potassium Chloride] 20 MEQ) PO SCH (21:00)
[2018-08-08] MEDS ORDERED: SODIUM BICARBONATE 1300 MG PO SCH (21:00)
[2018-08-08] MEDS ORDERED: HOME MED 1 EA UNK (Pravastatin Sodium [Pravachol] 40 MG) PO SCH (21:00)
--- NOTE | 2018-08-08 21:14 | RAD REPORT ---
EXAM DESCRIPTION: USCarotid Artery Mefcvhffi82/14/2018 8:55 pm CLINICAL HISTORY: ICD R47.1, I63.9 COMPARISON: None FINDINGS: The velocity of the right internal carotid artery equals 94 cm/sec. The right ICA/CCA rati o 1 The velocity of the left internal carotid artery equals 93 cm/sec. The left ICA/CCA ratio 1.1 Plaque is not seen within the carotid arteries. The vertebral arteries demonstrate antegrade flow IMPRESSION: Unremarkable exam
--- NOTE | 2018-08-08 21:19 | RAD REPORT ---
EXAM DESCRIPTION: RAD - Foot Right 3 View - 08/08/2018 9:05 pm CLINICAL HISTORY: Right foot pain FINDINGS: A 1 centimeter lucency is present within the base of the first proximal phalanx. Faint meredith ear lucency is present within the mid aspect of the first proximal phalanx. No dislocation is noted. These findings may indicate osteomyelitis and should be correlated clinically. If the patient has exp erienced trauma to this region then this could represent an osteochondral fracture. If the diagnosis remains uncertain MRI would be recommended
--- NOTE | 2018-08-09 00:06 | HP ---
Date of Admission: 08/08/2018 Primary Care Physician: Wellington Beal M.D. Chief Complaint: Found down, hypoglycemic, hypothermic. Code Status: Full. History Of Present Illness: The patient is a 63-year-old female with past medical history of diabetes mellitus type 2, on insulin, rheumatoid arthritis, chronic kidney disease with solitary kidney, who was in her usual state of health until the day of admission when the patient was found down by her . The patient's heard her walker fall and found the patient unresponsive. She was found to have a blood glucose level of 44. There was no change in her dietary patterns. Did eat a good dinner, however ate early last night. The patient denies any change in her insulin dose. The patient's symptoms are constant, severe, progressively worsening. Therefore, she was brought into the hospital via EMS. She received some glucose on the way. The patient became somewhat more responsive by the time she arrived in the ER. Her initial glucose was 125, however it came back down to 60. The patient's workup did reveal a creatinine of 3.5, which is around her baseline. The patient otherwise was hypothermic with a temperature of 91.6. She was placed on a Kenton Hugger and temperature was improving. The patient was then referred for admission. When seen in the ER, she was asleep but able to be aroused and oriented x3, in some mild distress. Past Medical History: Diabetes mellitus type 2, insulin requiring; rheumatoid arthritis; chronic kidney disease, due to solitary kidney from a history of trauma; chronic back pain with pain pump. Past Surgical History: Patient has had splenectomy, exploratory laparotomy, cyst on the kidney, patient has solitary kidney due to trauma as a child, TENS unit for her back pain, and knee surgery. Allergies: INFLIXIMAB, BACTRIM, CODEINE, VICTOZA. Medications: List reviewed. Social History: The patient denies any tobacco use or alcohol use. The patient is and independent in her activities of daily living. Family History: Diabetes runs in the family. Review of Systems: An 11-point system reviewed, negative except as per HPI. Physical Examination: Vital Signs: Blood pressure 121/63, pulse 50, respirations 10, and O2 100% on room air. BMI 41. Temperature is 91.6. General: Asleep and arousable, oriented x3, somewhat ill-appearing female, morbidly obese. HEENT: Normocephalic, atraumatic. PERRLA. EOMI. Moist mucous membranes. Oropharynx is clear. Normal dentition. Conjunctivae anicteric. Neck: Supple. No JVD. Trachea midline. CV: S1, S2. Regular rate and rhythm. Peripheral pulses present. No murmurs. Respiratory: Moving air well bilaterally. No wheezing or stridor. Gastrointestinal: Abdomen is soft, nontender, nondistended. Positive bowel sounds. No guarding or rigidity. Extremities: No clubbing, cyanosis, or edema. No calf tenderness. Neuro: Cranial nerves 2 through 12 intact grossly. No focal neurological deficits. Speech is normal. Strength is symmetric bilateral upper and lower extremities. Sensation is intact to light touch. No facial asymmetry. Skin: No rashes. Normal skin turgor. Laboratory Data: UA negative, did show 3+ protein. Sodium 141, potassium 3.5, chloride 100, CO2 33, BUN 50, creatinine 3.5, glucose 105, calcium 9.7, WBC 8.6 , H and H 10.5 and 31.1, MCV 102.5, platelets 338, neutrophils 71%. CT head and neck shows no acute hemorrhage or edema or midline shift. CT cervical spine shows no acute intracranial or cervical spine findings. The patient does have diffuse thyroid goiter. Chest x-ray does show mild interstitial pulmonary edema. Ankle x-ray on the right shows soft tissue swelling present about the ankle; no fracture or dislocation; prominent calcaneal spurs are evident. Assessment And Plan: A 63-year-old female with 1. Acute metabolic encephalopathy, likely due to hypothermia and hypoglycemia , improving. 2. Hypoglycemia, may be related to the patient's medication. We will hold insulin for now. We will start her on D5 half NS and monitor blood glucose levels q.1 hour and space out if greater than 80. We will use dextrose as needed. 3. Hypothermia. Continue Kenton Hugger. We will continue to monitor her on cardiac telemetry. 4. Arrhythmias, likely secondary to above. 5. Morbid obesity. 6. Obstructive sleep apnea. 7. Macrocytic anemia. 8. Chronic kidney disease. Creatinine around baseline. The patient does have solitary kidney. The patient sees Dr. Breaux as outpatient. We will consult her transmission tester. 9. Rheumatoid arthritis. 10. Diabetes mellitus type 2, insulin requiring, with hypoglycemia. Hold insulin for now. 11. Chronic back pain. The patient does have a TENS unit 12. Gastrointestinal and deep venous thrombosis prophylaxis addressed. Plan: Admit the patient to Med-Surg, place as observation. We will likely discharge her in the next 24 hours if blood glucose levels trend and temperature improves. BEN Voice ID: [id number] MTDD
[2018-08-09 04:07] LABS: Absolute Lymphocytes (CBC) 2.3 K/uL (0.7-4.9); Absolute Monocytes 1.5 K/uL (0.1-1.3); Absolute Neutrophil 4.2 K/uL (1.8-8.0); Basophils % 0.3 % (0-1.3); Hematocrit 25.7 % (36.0-45.0); Lymphocytes % 27.2 % (15.3-44.8); MCH 34.4 pg (27.0-35.0); MCV 100.7 fL (80-100); MPV 9.5 fL (7.6-11.3); Monocytes % 17.6 % (3.3-12.3); RBC Red Blood Cell Count 2.56 M/uL (3.86-4.86)
[2018-08-09 04:22] LABS: Albumin 2.5 g/dL (3.4-5.0); Bilirubin Total 0.4 mg/dL (0.2-1.0); Potassium 3.8 mmol/L (3.5-5.1)
[2018-08-09 04:31] LABS: T4,Total 10.7 ug/dL (4.8-13.9); Thyroid Stimulating Hormone 1.71 uIU/mL (0.360-3.740)
[2018-08-09 05:22] LABS: Blood Morphology Comment NOT SEEN (NOT SEEN); Platelet Estimate ADEQ
[2018-08-09] MEDS: HYDRALAZINE HCL 25 MG TABLET PO SCH ×3 (08:43→21:21)
[2018-08-09] MEDS: ASPIRIN 81 MG CHEWABLE TABLET PO SCH (08:44)
[2018-08-09] MEDS: FAMOTIDINE 20 MG TAB PO SCH (08:44)
[2018-08-09] MEDS: ALLOPURINOL 100 MG TAB PO SCH (08:44)
[2018-08-09] MEDS: DULOXETINE 30 MG CAP PO SCH (08:45)
[2018-08-09] MEDS: AMLODIPINE 5 MG TAB PO SCH (08:45)
[2018-08-09] MEDS: PREGABALIN 50 MG CAP PO SCH ×2 (08:46→21:21)
[2018-08-09] MEDS: CARVEDILOL 25 MG TAB PO SCH ×2 (08:46→21:21)
[2018-08-09] MEDS: LORATADINE 10 MG TAB PO SCH (08:47)
[2018-08-09] MEDS: CALCITROL 0.25 MCG CAP PO SCH (08:47)
[2018-08-09] MEDS: SODIUM BICARB 325 MG TAB PO SCH ×3 (08:47→21:20)
[2018-08-09] MEDS: LEFLUNOMIDE 20 MG PO SCH (08:48)
[2018-08-09] MEDS: HYDROXYCHLOROQUINE 200MG TAB PO SCH ×2 (08:48→21:21)
[2018-08-09] MEDS: POTASSIUM CL SA 10 MEQ TAB PO SCH ×2 (08:48→21:21)
[2018-08-09] MEDS: HOME MED 1 EA UNK (Fluticasone/Umeclidin/Vilanter [Trelegy Ellipta 100-62.5-25] 1 INH) PO SCH (08:49)
[2018-08-09] MEDS ORDERED: FUROSEMIDE 40 MG TABLET PO SCH (09:00)
[2018-08-09] MEDS ORDERED: GLUCAGON 1 MG/VIAL IM PRN (12:26)
[2018-08-09] MEDS ORDERED: D50W 25 GM/50 ML SYRINGE IV PRN (12:26)
[2018-08-09] MEDS: INSULIN -REGULAR HUMAN 50 UNIT/0.5 ML ML SQ SCH ×3 (12:30→21:22)
--- NOTE | 2018-08-09 17:10 | PN ---
Date of Progress Note: 08/09/2018 Subjective: The patient is seen and examined. Chart reviewed, and case discussed with RN. The windy ent is still having significant amount of pain in her right first toe. X-rays did show possible frac ture. Orthopedic has been consulted. No further episodes of confusion or hypoglycemia. Review of Systems: Negative except as above. Medications: List reviewed. Physical Examination: Vital Signs: Temperature 99.3, heart rate 93, blood pressure 146/73, O2 of 95% on room air. General: Awake, alert, oriented x3. In acute distress due to pain. Morbidly obese. CV: S1, S2. Regular rate and rhythm. Peripheral pulses present. No murmurs. Respiratory: Moving air well bilaterally. No wheezing or stridor. Gastrointestinal: Abdomen is soft, nontender, nondistended. Positive bowel sounds. Extremities: No clubbing, cyanosis, or edema. Musculoskeletal: Right foot great toe has some ecchymosis, tenderness to palpation, decreased range of motion due to pain. Neurologic: Nonfocal. Laboratory Data: Sodium 143, potassium 3.8, chloride 102, CO2 of 34, BUN 50, creatinine 3.6, glucose 139. Hemoglobin A1c 5%. TSH 1.7. T4 10.7. WBC 8.4, H and H 8.8 and 25.7, platelets 315. Foot x- ray from 08/08/2018 shows 1 cm lucency present within the base of the first proximal phalanx. Faint linear lucency present within the mid aspect of the first proximal phalanx. No dislocation noted. F indings may indicate osteomyelitis. If present, could represent osteochondral fracture. MRI recomme nded. Assessment And Plan: A 63-year-old female with: 1.Acute metabolic encephalopathy due to hypothermia and hypoglycemia, resolved. 2.Hypoglycemia, likely related to the patient's medications. Her hemoglobin A1c is 5%. We will sto p her long-acting insulin. Now that her blood sugar levels are improving, off the D5 half NS. We wi ll start on sliding scale insulin. 3.Hypothermia, corrected. 4.Morbid obesity, BMI 44, counseled. 5.Obstructive sleep apnea. Continue CPAP at night. 6.First right toe fracture, possibly osteochondral fracture. We will obtain MRI of the foot. Ortho pedic consultation by Dr. Smith. 7.Microcytic anemia. We will continue to monitor hemoglobin and hematocrit. 8.Chronic kidney disease. Creatinine is around her baseline. The patient has solitary kidney. Charis reciate Dr. Breaux's input. We will continue to monitor creatinine. Avoid nephrotoxins. 9.Rheumatoid arthritis, on DMARD, currently on hold. 10.Diabetes mellitus type 2, insulin requiring, with hypoglycemia. Hold long-acting insulin and pre -meal insulin for now. We will start on sliding scale insulin. Continue Accu-Cheks. 11.Chronic back pain. The patient has a TENS unit installed, no pain pump. 12.Gastrointestinal and deep venous thrombosis prophylaxis addressed. 13.Thyroid goiter. TSH and T4 are normal. The patient will need outpatient thyroid ultrasound. We will follow up with PCP. Plan: Orthopedic consultation. MRI of the foot. If nonsurgical, we will discharge today and depend ing on Orthopedic recommendations. /TONY Voice ID: [id number] Report ID: [id number]
[2018-08-09] MEDS: FUROSEMIDE 20 MG TABLET PO SCH (18:18)
[2018-08-09] MEDS: ENOXAPARIN 30 MG/0.3 ML SQ SCH (18:18)
[2018-08-09] MEDS: ATORVASTATIN 10 MG TAB PO SCH (21:21)
--- NOTE | 2018-08-09 22:16 | P.PN ---
Date of Service: 08/09/18 Vital Signs Temp Pulse Resp BP Pulse Ox 99.2 F 90 16 141/70 H 94 08/09/18 16:00 08/09/18 18:18 08/09/18 16:00 08/09/18 18:18 08/09/18 16:00 Medications Acetaminophen (Tylenol -Extra Strength) 500 mg PO Q4HP PRN PRN Reason: [id number] Stop: 09/07/18 09:42 Allopurinol (Zyloprim) 100 mg PO DAILY [facility]ER Stop: 09/08/18 09:01 Last Admin: 08/09/18 08:44 Dose: 100 mg Amlodipine Besylate (Norvasc) 5 mg PO DAILY [facility] Stop: 09/08/18 09:01 Last Admin: 08/09/18 08:45 Dose: 5 mg Aspirin (Aspirin Chewable) 81 mg PO DAILY [facility]ER Stop: 09/08/18 09:01 Last Admin: 08/09/18 08:44 Dose: 81 mg Atorvastatin Calcium (Lipitor) 10 mg PO BEDTIME [facility] Stop: 09/07/18 21:01 Last Admin: 08/09/18 21:21 Dose: 10 mg Calcitriol (Rocaltrol) 0.25 mcg PO DAILY [facility] Stop: 09/08/18 09:01 Last Admin: 08/09/18 08:47 Dose: 0.25 mcg Carvedilol (Coreg) 25 mg PO BID [facility] Stop: 09/07/18 21:01 Last Admin: 08/09/18 21:21 Dose: 25 mg Dextrose (Dextrose 50% Syringe) 12.5 gm IV PRN PRN; Protocol PRN Reason: HYPOGLYCEMIA Stop: 09/08/18 12:27 Duloxetine HCl (Cymbalta Delayed Release Pellets) 60 mg PO DAILY [facility]YLER Stop: 09/08/18 09:01 Last Admin: 08/09/18 08:45 Dose: 60 mg Enoxaparin Sodium (Lovenox 30 Mg Inj) 30 mg SQ DAILY 5 PM [facility] Stop: 09/07/18 17:01 Last Admin: 08/09/18 18:18 Dose: 30 mg Famotidine (Pepcid) 20 mg PO DAILY [facility] Stop: 09/08/18 09:01 Last Admin: 08/09/18 08:44 Dose: 20 mg Furosemide (Lasix) 20 mg PO DAILY 5 PM [facility] Stop: 09/07/18 17:01 Last Admin: 08/09/18 18:18 Dose: 20 mg Glucagon (Glucagen) 1 mg IM 1X PRN; Protocol PRN Reason: HYPOGLYCEMIA Stop: 09/08/18 12:27 Home Med (Abatacept [Orencia]) 1,000 unit SQ [facility] Stop: 09/07/18 16:31 Home Med (Fluticasone/Umeclidin/Vilanter [Trelegy Ellipta 100-62.5-25]) 1 inh PO DAILY [facility]ER Stop: 09/08/18 09:01 Last Admin: 08/09/18 08:49 Dose: Not Given Home Med (Leflunomide [Arava]) 20 mg PO DAILY [facility] Stop: 09/08/18 09:01 Last Admin: 08/09/18 08:48 Dose: Not Given Hydralazine HCl (Apresoline) 100 mg PO TID [facility] Stop: 09/07/18 21:01 Last Admin: 08/09/18 21:21 Dose: 100 mg Hydroxychloroquine Sulfate (Plaquenil) 200 mg PO BID [facility] Stop: 09/07/18 21:01 Last Admin: 08/09/18 21:21 Dose: 200 mg Insulin Human Regular (Novolin -R) 0 unit SQ Q4H [facility]; Protocol Stop: 09/08/18 12:31 Last Admin: 08/09/18 21:22 Dose: 2 unit Loratadine (Claritin) 10 mg PO DAILY [facility] Stop: 09/08/18 09:01 Last Admin: 08/09/18 08:47 Dose: 10 mg Ondansetron HCl (Zofran) 4 mg IV Q4H PRN PRN Reason: NAUSEA / VOMITING Stop: 09/07/18 09:42 Potassium Chloride (Klor-Con 10 Meq Tab) 20 meq PO BID [facility] Stop: 09/07/18 21:01 Last Admin: 08/09/18 21:21 Dose: 20 meq Pregabalin (Lyrica) 50 mg PO BID [facility] Stop: 09/07/18 21:01 Last Admin: 08/09/18 21:21 Dose: 50 mg Sodium Bicarbonate (Sodium Bicarb 325 Mg) 1,300 mg PO TID [facility] Stop: 09/07/18 21:01 Last Admin: 11/15/18 21:20 Dose: 1,300 mg Sodium Chloride (Normal Saline Flush) 10 ml IV BID [facility] Stop: 09/07/18 21:01 Last Admin: 08/09/18 21:22 Dose: 10 ml Assessment/ Plan: Nephrology. Feeling better today. CPS stable without CP or SOB. No acute events overnight. Vitals, medications, blood work and imaging reviewed in the chart. NAD. MMM. Neck supple. CTA. RRR. Soft Abd. No C/C/E. No rash. AAO. Normal speech. Reason for Exam: hypothermia Report Status: Signed EXAM DESCRIPTION: Cj Single View08/08/2018 10:05 am CLINICAL HISTORY: Shortness of breath COMPARISON: April 2018 FINDINGS: The lungs are mildly hazy. The heart is moderately enlarged IMPRESSION: Mild interstitial pulmonary edema is suspected. A/ CKD IV with proteinuria. Diastolic CHF, chronic. HTN with CKD. DM II with CKD. Anemia in chronic illness. KHADAR. P/ Continue current POC and Medications. Start Vitamin D. Give a dose of Epo. No NSAIDs. AM labs. Daily weight.
[2018-08-09] MEDS ORDERED: EPOETIN ALFA 10,000 UNIT/ML SQ ONE (22:22)
[2018-08-10 00:06] LABS: Folic Acid, (Folate) > 20.0 ng/mL (3.1-17.5)
[2018-08-10] MEDS: INSULIN -REGULAR HUMAN 50 UNIT/0.5 ML ML SQ SCH ×4 (00:30→12:24)
[2018-08-10 06:34] LABS: Absolute Lymphocytes (CBC) 1.6 K/uL (0.7-4.9); Absolute Monocytes 1.7 K/uL (0.1-1.3); Absolute Neutrophil 4.6 K/uL (1.8-8.0); Eosinophils % 6.7 % (0-4.4); Hematocrit 25.1 % (36.0-45.0); Lymphocytes % 18.6 % (15.3-44.8); MCH 34.6 pg (27.0-35.0); MCV 100.6 fL (80-100); MPV 9.9 fL (7.6-11.3); RBC Red Blood Cell Count 2.49 M/uL (3.86-4.86)
[2018-08-10 06:58] LABS: Albumin 2.3 g/dL (3.4-5.0); Bilirubin Total 0.4 mg/dL (0.2-1.0); Magnesium 2.1 mg/dL (1.8-2.4); Phosphorus 3.5 mg/dL (2.5-4.9); Potassium 3.5 mmol/L (3.5-5.1); Protein, Total 5.8 g/dL (6.4-8.2); Uric Acid 6.6 mg/dL (2.6-6.0)
[2018-08-10] MEDS ORDERED: INSULIN GLARGINE 100 UNITS/ML SQ SCH (08:00)
[2018-08-10] MEDS: HOME MED 1 EA UNK (Fluticasone/Umeclidin/Vilanter [Trelegy Ellipta 100-62.5-25] 1 INH) PO SCH (09:00)
[2018-08-10] MEDS ORDERED: VITAMIN D 5,000 UNIT CAP PO SCH (09:00)
[2018-08-10] MEDS ORDERED: EPOETIN ALFA 10,000 UNIT/ML SQ ONE (09:00)
[2018-08-10] MEDS: SODIUM BICARB 325 MG TAB PO SCH (09:00)
[2018-08-10] MEDS: LEFLUNOMIDE 20 MG PO SCH (09:00)
[2018-08-10 09:03] VITALS: BP 123/59; TEMP 97.9
[2018-08-10] MEDS: DULOXETINE 30 MG CAP PO SCH (09:21)
[2018-08-10] MEDS: HYDROXYCHLOROQUINE 200MG TAB PO SCH (09:21)
[2018-08-10] MEDS: LORATADINE 10 MG TAB PO SCH (09:22)
[2018-08-10] MEDS: AMLODIPINE 5 MG TAB PO SCH (09:22)
[2018-08-10] MEDS: CARVEDILOL 25 MG TAB PO SCH (09:22)
[2018-08-10] MEDS: PREGABALIN 50 MG CAP PO SCH (09:22)
[2018-08-10] MEDS: HYDRALAZINE HCL 25 MG TABLET PO SCH (09:22)
[2018-08-10] MEDS: CALCITROL 0.25 MCG CAP PO SCH (09:22)
[2018-08-10] MEDS: ALLOPURINOL 100 MG TAB PO SCH (09:23)
[2018-08-10] MEDS: ASPIRIN 81 MG CHEWABLE TABLET PO SCH (09:23)
[2018-08-10] MEDS: POTASSIUM CL SA 10 MEQ TAB PO SCH (09:23)
[2018-08-10] MEDS: FAMOTIDINE 20 MG TAB PO SCH (09:23)
[2018-08-10 10:28] VITALS: O2SAT 90
--- NOTE | 2018-08-11 16:18 | DS ---
Date of Discharge: 08/10/2018 Consultants: 1.Dr. Smith with orthopedics. 2.Dr. Breaux with Nephrology. Admitting Diagnoses: 1.Altered mental status. 2.Hypoglycemia. 3.Hypothermia. 4.Morbid obesity. 5.Obstructive sleep apnea. 6.Macrocytic anemia. 7.Chronic kidney disease, stage 4. 8.Rheumatoid arthritis. 9.Diabetes mellitus type 2, insulin requiring with hyperglycemia. 10.Chronic back pain. Discharge Diagnoses: 1.Acute metabolic encephalopathy, improved. 2.Hypoglycemia secondary to insulin. Medications adjusted. Hemoglobin A1c 5%. 3.Hypothermia, corrected. 4.Morbid obesity, BMI of 44. 5.Obstructive sleep apnea, on CPAP at night. 6.First right toe fracture, conservative treatment with a fracture boot. Follow up with Ortho as an outpatient. 7.Macrocytic anemia. 8.Chronic kidney disease, stage 4. 9.Rheumatoid arthritis, on DMARDs. 10.Diabetes mellitus type 2, insulin requiring with hypoglycemia. Hemoglobin A1c of 5%. The patien t needs drastic reduction of her insulin levels. 11.Chronic back pain, midline, without sciatica status with a TENS unit implant. 12.Thyroid goiter. Normal thyroid function study. The patient will need outpatient thyroid ultraso und to rule out suspicious nodules and possible malignancy. Hospital Course: The patient is a 63-year-old female who was found down by her . The patient was hypoglycemic with a glucose level of 44. She was also found to be hypothermic. The patient was started on IV fluids with D5. She had some improvement in her blood glucose levels as well as her m ental status. The patient does have chronic kidney disease and was seen by her speed winder, Dr. Olson. Her creatinine remained around baseline. She also has had some pain in her right first toe, which was found to be fractured on x-ray. Dr. Smith was consulted. He recommended conservative t reatment with fracture boot and to follow up with him as an outpatient. The patient's blood glucose levels eventually did rise back up into the 200s, and this was off D5 half NS. Her hemoglobin A1c wa s 5%, which makes her situation unusual. She will still require some level of insulin, however, they have drastically reduced her dose. The patient's Lantus dose was reduced as well as her pre-meal in sulin. She will need to check her blood glucose levels at least 4 times a day, premeal as well as fa sting. She will need to have her insulin level adjusted by her primary care physician depending on h er blood glucose levels. The patient's pain was controlled. She does have tramadol at home which amandeep lauren can take for the foot pain. The patient was otherwise doing well. Able to ambulate. Her symptoms had resolved. No further episodes of altered mental status or syncope. The patient was then discha rged home. Activity: As tolerated. Medications: As per medication reconciliation list. Her Lantus was decreased to 10 units at night a nd Humalog to 5 units with meals instead of 14. Follow-up: With primary care physician in 2-3 days. Follow up with Orthopedic surgeon, Dr. Smith in 3-5 days. Return to ER for worsening condition. Diet: Diabetic diet. Physical Examination: General: Awake, alert, oriented x3. No acute distress. Morbidly obese female. CV: S1 and S2. No murmurs. Respiratory: Moving air well bilaterally. No wheezing. Gastrointestinal: Abdomen is soft, nontender, nondistended. Positive bowel sounds. Extremities: No clubbing, cyanosis, edema. Musculoskeletal: Right foot first digit tenderness to palpation. Some ecchymosis present. Decrease d range of motion due to pain. /TONY Voice ID: [id number] Report ID: [id number]
== END 2018-08-10 13:12 | disposition home or self-care (01) ==
LOC: ER 05:53 → ERHOLD 09:31 → 2ND 11:37 → 3RD-ICU 13:13 → 4TH 17:25
PROVIDERS: ADMIT Family Medicine; ATTEND Family Medicine
DX: G93.41 Metabolic encephalopathy (principal); E11.649 Type 2 diabetes mellitus with hypoglycemia without coma; T38.3X5A Adverse effect of insulin and oral hypoglycemic [antidiabetic] drugs, initial encounter; Y92.009 Unspecified place in unspecified non-institutional (private) residence as the place of occurrence of the external cause; E66.9 Obesity, unspecified; Z68.41 Body mass index [BMI] 40.0-44.9, adult; G47.33 Obstructive sleep apnea (adult) (pediatric); S92.411A Displaced fracture of proximal phalanx of right great toe, initial encounter for closed fracture; X58.XXXA Exposure to other specified factors, initial encounter; I13.0 Hypertensive heart and chronic kidney disease with heart failure and stage 1 through stage 4 chronic kidney disease, or unspecified chronic kidney disease; E11.22 Type 2 diabetes mellitus with diabetic chronic kidney disease; N18.4 Chronic kidney disease, stage 4 (severe); I50.32 Chronic diastolic (congestive) heart failure; T68.XXXA Hypothermia, initial encounter; Q60.0 Renal agenesis, unilateral; I49.9 Cardiac arrhythmia, unspecified; D53.9 Nutritional anemia, unspecified; M54.9 Dorsalgia, unspecified; E04.9 Nontoxic goiter, unspecified; M06.9 Rheumatoid arthritis, unspecified
CPT/HCPCS: 36415; 51702; 70450; 71045; 72125; 80048; 80053; 81003; 82607; 82746; 82962; 83036; 83605; 83735; 84100; 84436; 84443; 84550; 85025; 93880; 94760; 96374; 96375; 99285; G0378; J0885; J1650; Q9967

== ENCOUNTER 2018-08-12 02:44 | Inpatient (IN) | payer BC ==
--- OUTSIDE RECORDS SUMMARY | 2018-08-12 02:48 | XMS REPORT | Clinical Summary ---
:1955 Author Organization [facility] Address [address] [place] [address] Care Team Providers Name Role Phone Paulette [...] mcg/actuation inhaler 2 (two) times daily. omega [id number]-[id number]-hku-fish Take 1,600 mg by 0 Active oil [...] Orders Only General Internal Medicine 09/19/2017 - [facility] General Internal Dylanghsasan Aldojaneth Pneumonia of right lower lobe due [...] (HCC); JAVED (acute kidney injury) (HCC) after 08/11/2017 Family History Medical History Relation Name Comments [...] Taken Blood Pressure 118/58 09/28/2017 3:44 PM PRINTING PRESS OPERATOR Pulse 88 09/28/2017 3:44 PM PRINTING PRESS OPERATOR Temperature 36.2 C (97.2 F) 09/28/2017 3:44 PM PRINTING PRESS OPERATOR Respiratory Rate 18 09/28/2017 3:44 PM PRINTING PRESS OPERATOR Oxygen Saturation 94% 09/28/2017 3:44 PM PRINTING PRESS OPERATOR Inhaled Oxygen Concentration 21% 09/26/2017 8:26 AM PRINTING PRESS OPERATOR Weight 123 kg (271 lb 4 oz) 09/27/2017 6:00 AM PRINTING PRESS OPERATOR Height 168 cm (5' 6.14") 09/19/2017 8:44 PM PRINTING PRESS OPERATOR Body Mass Index 43.59 09/27/2017 6:00 AM PRINTING PRESS OPERATOR Plan of Treatment Not on file Procedures Procedure Name Priority Date/Time Associated Comments Diagnosis REPORT OF PROCEDURE - 09/29/2017 1:53 ENDOSCOPY SCAN PM PRINTING PRESS OPERATOR RHYTHM STRIP - SCAN 09/29/2017 1:53 PM PRINTING PRESS OPERATOR ECHOCARDIOGRAM REPORT - 09/28/2017 1:50 SCAN PM PRINTING PRESS OPERATOR POCT-GLUCOSE METER Routine 09/28/2017 11:52 Results for this AM PRINTING PRESS OPERATOR procedure are in the results section. POCT-GLUCOSE METER Routine 09/28/2017 8:55 Results for this AM PRINTING PRESS OPERATOR procedure are in the results section. MAGNESIUM Routine 09/28/2017 6:09 Results for this AM PRINTING PRESS OPERATOR procedure are in the results section. BASIC METABOLIC PANEL Routine 09/28/2017 6:09 Results for this (7) AM PRINTING PRESS OPERATOR procedure are in the results section. MISCELLANEOUS LAB ORDER Routine 09/28/2017 6:09 AM PRINTING PRESS OPERATOR POCT-GLUCOSE METER Routine 09/27/2017 9:10 Results for this PM PRINTING PRESS OPERATOR procedure are in the results section. PROTEIN, BODY FLUID Routine 09/27/2017 7:36 Results for this PM PRINTING PRESS OPERATOR procedure are in the results section. LACTATE DEHYDROGENASE Routine 09/27/2017 7:36 Results for this (LDH), BODY FLUID PM PRINTING PRESS OPERATOR procedure are in the results section. BODY FLUID CULTURE + Routine 09/27/2017 7:36 Results for this GRAM STAIN PM PRINTING PRESS OPERATOR procedure are in the results section. BODY FLUID CELL COUNT Routine 09/27/2017 7:36 Results for this WITH DIFFERENTIAL PM PRINTING PRESS OPERATOR procedure are in the results section. LIMITED 2D ELADIO 09/27/2017 6:59 Results for this ECHOCARDIOGRAM PM PRINTING PRESS OPERATOR procedure are in the results section. POCT-GLUCOSE METER Routine 09/27/2017 5:11 Results for this PM PRINTING PRESS OPERATOR procedure are in the results section. US THORACENTESIS Routine 09/27/2017 4:15 Results for this PM PRINTING PRESS OPERATOR procedure are in the results section. XR CHEST 1 VIEW STAT 09/27/2017 4:10 Results for this PORTABLE/BEDSIDE PM PRINTING PRESS OPERATOR procedure are in the results section. XR CHEST 1 VIEW Routine 09/27/2017 12:49 Results for this PORTABLE/BEDSIDE PM PRINTING PRESS OPERATOR procedure are in the results section. POCT-GLUCOSE METER Routine 09/27/2017 12:29 Results for this PM PRINTING PRESS OPERATOR procedure are in the results section. POCT-GLUCOSE METER Routine 09/27/2017 7:56 Results for this AM PRINTING PRESS OPERATOR procedure are in the results section. VITAMIN B12 AND FOLATE Routine 09/27/2017 4:54 Results for this AM PRINTING PRESS OPERATOR procedure are in the results section. MAGNESIUM Routine 09/27/2017 4:54 Results for this AM PRINTING PRESS OPERATOR procedure are in the results section. BASIC METABOLIC PANEL Routine 09/27/2017 4:54 Results for this (7) AM PRINTING PRESS OPERATOR procedure are in the results section. POCT-GLUCOSE METER Routine 09/26/2017 9:33 Results for this PM PRINTING PRESS OPERATOR procedure are in the results section. POCT-GLUCOSE METER Routine 09/26/2017 6:11 Results for this PM PRINTING PRESS OPERATOR procedure are in the results section. ECHOCARDIOGRAM REPORT - 09/26/2017 4:59 SCAN PM PRINTING PRESS OPERATOR POCT-GLUCOSE METER Routine 09/26/2017 1:49 Results for this PM PRINTING PRESS OPERATOR procedure are in the results section. 2D ECHO W/ DOPPLER ELADIO 09/26/2017 11:38 Results for this (CW/PW/COLOR) AM PRINTING PRESS OPERATOR procedure are in the results section. PT/APTT STAT 09/26/2017 11:10 Results for this AM PRINTING PRESS OPERATOR procedure are in the results section. PLATELET COUNT STAT 09/26/2017 11:10 Results for this AM PRINTING PRESS OPERATOR procedure are in the results section. PROTEIN, TOTAL Routine 09/26/2017 11:10 Results for this AM PRINTING PRESS OPERATOR procedure are in the results section. LACTATE DEHYDROGENASE Routine 09/26/2017 11:10 Results for this (LDH) AM PRINTING PRESS OPERATOR procedure are in the results section. POCT-GLUCOSE METER Routine 09/26/2017 8:26 Results for this AM PRINTING PRESS OPERATOR procedure are in the results section. MAGNESIUM Routine 09/26/2017 4:48 Results for this AM PRINTING PRESS OPERATOR procedure are in the results section. BASIC METABOLIC PANEL Routine 09/26/2017 4:48 Results for this (7) AM PRINTING PRESS OPERATOR procedure are in the results section. POCT-GLUCOSE METER Routine 09/25/2017 9:10 Results for this PM PRINTING PRESS OPERATOR procedure are in the results section. XR CHEST 2 VIEWS Routine 09/25/2017 6:37 Results for this PM PRINTING PRESS OPERATOR procedure are in the results section. POCT-GLUCOSE METER Routine 09/25/2017 5:18 Results for this PM PRINTING PRESS OPERATOR procedure are in the results section. POCT-GLUCOSE METER Routine 09/25/2017 11:49 Results for this AM PRINTING PRESS OPERATOR procedure are in the results section. POCT-GLUCOSE METER Routine 09/25/2017 7:18 Results for this AM PRINTING PRESS OPERATOR procedure are in the results section. MAGNESIUM Routine 09/25/2017 5:47 Results for this AM PRINTING PRESS OPERATOR procedure are in the results section. BASIC METABOLIC PANEL Routine 09/25/2017 5:47 Results for this (7) AM PRINTING PRESS OPERATOR procedure are in the results section. POCT-GLUCOSE METER Routine 09/24/2017 9:13 Results for this PM PRINTING PRESS OPERATOR procedure are in the results section. POCT-GLUCOSE METER Routine 09/24/2017 6:47 Results for this PM PRINTING PRESS OPERATOR procedure are in the results section. POCT-GLUCOSE METER Routine 09/24/2017 4:41 Results for this PM PRINTING PRESS OPERATOR procedure are in the results section. CREATININE, RANDOM Routine 09/24/2017 4:18 Results for this URINE PM PRINTING PRESS OPERATOR procedure are in the results section. PROTEIN, RANDOM URINE Routine 09/24/2017 4:18 Results for this PM PRINTING PRESS OPERATOR procedure are in the results section. NM CARDIAC PET STAT 09/24/2017 2:57 Results for this PERFUSION REST AND/OR PM PRINTING PRESS OPERATOR procedure are in STRESS the results section. TREADMILL Routine 09/24/2017 2:52 Results for this TOLERANCE(NON-NUCLEAR PM PRINTING PRESS OPERATOR procedure are in TREADMILL) the results section. POCT-GLUCOSE METER Routine 09/24/2017 10:13 Results for this AM PRINTING PRESS OPERATOR procedure are in the results section. POCT-GLUCOSE METER Routine 09/24/2017 7:23 Results for this AM PRINTING PRESS OPERATOR procedure are in the results section. MAGNESIUM Routine 09/24/2017 4:21 Results for this AM PRINTING PRESS OPERATOR procedure are in the results section. BASIC METABOLIC PANEL Routine 09/24/2017 4:21 Results for this (7) AM PRINTING PRESS OPERATOR procedure are in the results section. VANCOMYCIN LEVEL, Routine 09/24/2017 4:21 Results for this RANDOM AM PRINTING PRESS OPERATOR procedure are in the results section. US RENAL COMPLETE Routine 09/23/2017 10:02 Results for this PM PRINTING PRESS OPERATOR procedure are in the results section. POCT-GLUCOSE METER Routine 09/23/2017 9:17 Results for this PM PRINTING PRESS OPERATOR procedure are in the results section. POCT-GLUCOSE METER Routine 09/23/2017 4:57 Results for this PM PRINTING PRESS OPERATOR procedure are in the results section. CREATININE, RANDOM Routine 09/23/2017 12:14 Results for this URINE PM PRINTING PRESS OPERATOR procedure are in the results section. SODIUM, RANDOM URINE Routine 09/23/2017 12:14 Results for this PM PRINTING PRESS OPERATOR procedure are in the results section. URINALYSIS W/ REFLEX Routine 09/23/2017 12:14 Results for this URINE CULTURE PM PRINTING PRESS OPERATOR procedure are in the results section. POCT-GLUCOSE METER Routine 09/23/2017 11:33 Results for this AM PRINTING PRESS OPERATOR procedure are in the results section. POCT-GLUCOSE METER Routine 09/23/2017 7:12 Results for this AM PRINTING PRESS OPERATOR procedure are in the results section. CBC W/PLT COUNT & AUTO Routine 09/23/2017 5:37 Results for this DIFFERENTIAL AM PRINTING PRESS OPERATOR procedure are in the results section. CBC W/PLT COUNT & AUTO Routine 09/23/2017 5:37 Results for this DIFFERENTIAL AM PRINTING PRESS OPERATOR procedure are in the results section. VANCOMYCIN LEVEL, Routine 09/23/2017 5:37 Results for this RANDOM AM PRINTING PRESS OPERATOR procedure are in the results section. MAGNESIUM Routine 09/23/2017 5:37 Results for this AM PRINTING PRESS OPERATOR procedure are in the results section. BASIC METABOLIC PANEL Routine 09/23/2017 5:37 Results for this (7) AM PRINTING PRESS OPERATOR procedure are in the results section. POCT-GLUCOSE METER Routine 09/22/2017 9:06 Results for this PM PRINTING PRESS OPERATOR procedure are in the results section. POCT-GLUCOSE METER Routine 09/22/2017 5:32 Results for this PM PRINTING PRESS OPERATOR procedure are in the results section. POCT-GLUCOSE METER Routine 09/22/2017 11:50 Results for this AM PRINTING PRESS OPERATOR procedure are in the results section. POCT-GLUCOSE METER Routine 09/22/2017 7:37 Results for this AM PRINTING PRESS OPERATOR procedure are in the results section. CBC W/PLT COUNT & AUTO Routine 09/22/2017 4:44 Results for this DIFFERENTIAL AM PRINTING PRESS OPERATOR procedure are in the results section. MYCOPLASMA PNEUMONIAE Routine 09/22/2017 4:44 Results for this ANTIBODY, IGM AM PRINTING PRESS OPERATOR procedure are in the results section. MYCOPLASMA PNEUMONIAE Routine 09/22/2017 4:44 Results for this ANTIBODY, IGG AM PRINTING PRESS OPERATOR procedure are in the results section. CMV PCR, QUANTITATIVE Routine 09/22/2017 4:44 Results for this AM PRINTING PRESS OPERATOR procedure are in the results section. VANCOMYCIN LEVEL, Routine 09/22/2017 4:44 Results for this RANDOM AM PRINTING PRESS OPERATOR procedure are in the results section. MAGNESIUM Routine 09/22/2017 4:44 Results for this AM PRINTING PRESS OPERATOR procedure are in the results section. BASIC METABOLIC PANEL Routine 09/22/2017 4:44 Results for this (7) AM PRINTING PRESS OPERATOR procedure are in the results section. CBC W/PLT COUNT & AUTO Routine 09/22/2017 4:44 Results for this DIFFERENTIAL AM PRINTING PRESS OPERATOR procedure are in the results section. POCT-GLUCOSE METER Routine 09/21/2017 9:07 Results for this PM PRINTING PRESS OPERATOR procedure are in the results section. POCT-GLUCOSE METER Routine 09/21/2017 4:53 Results for this PM PRINTING PRESS OPERATOR procedure are in the results section. BRONCHIAL CULTURE + STAT 09/21/2017 12:52 Results for this GRAM STAIN PM PRINTING PRESS OPERATOR procedure are in the results section. SPIN/CONCENTRATION Routine 09/21/2017 12:49 Results for this CHARGE PM PRINTING PRESS OPERATOR procedure are in the results section. FUNGUS CULTURE + SMEAR STAT 09/21/2017 12:49 Results for this PM PRINTING PRESS OPERATOR procedure are in the results section. AFB CULTURE + SMEAR STAT 09/21/2017 12:49 Results for this PM PRINTING PRESS OPERATOR procedure are in the results section. POCT-GLUCOSE METER Routine 09/21/2017 12:28 Results for this PM PRINTING PRESS OPERATOR procedure are in the results section. BLOOD GAS, ARTERIAL STAT 09/21/2017 11:02 Results for this AM PRINTING PRESS OPERATOR procedure are in the results section. XR CHEST 1 VIEW STAT 09/21/2017 9:15 Results for this PORTABLE/BEDSIDE AM PRINTING PRESS OPERATOR procedure are in the results section. POCT-GLUCOSE METER Routine 09/21/2017 8:38 Results for this AM PRINTING PRESS OPERATOR procedure are in the results section. CBC W/PLT COUNT & AUTO Routine 09/21/2017 5:18 Results for this DIFFERENTIAL AM PRINTING PRESS OPERATOR procedure are in the results section. MAGNESIUM Routine 09/21/2017 5:18 Results for this AM PRINTING PRESS OPERATOR procedure are in the results section. CBC W/PLT COUNT & AUTO Routine 09/21/2017 5:18 Results for this DIFFERENTIAL AM PRINTING PRESS OPERATOR procedure are in the results section. BASIC METABOLIC PANEL STAT 09/21/2017 5:18 Results for this (7) AM PRINTING PRESS OPERATOR procedure are in the results section. XR CHEST 1 VIEW STAT 09/21/2017 3:34 Results for this PORTABLE/BEDSIDE AM PRINTING PRESS OPERATOR procedure are in the results section. POCT-GLUCOSE METER Routine 09/20/2017 10:11 Results for this PM PRINTING PRESS OPERATOR procedure are in the results section. ECHOCARDIOGRAM REPORT - 09/20/2017 5:15 SCAN PM PRINTING PRESS OPERATOR POCT-GLUCOSE METER Routine 09/20/2017 5:09 Results for this PM PRINTING PRESS OPERATOR procedure are in the results section. LEGIONELLA URINE Routine 09/20/2017 3:30 Results for this ANTIGEN PM PRINTING PRESS OPERATOR procedure are in the results section. 2D ECHO MODE W/O ELADIO 09/20/2017 1:08 Results for this DOPPLER PM PRINTING PRESS OPERATOR procedure are in the results section. POCT-GLUCOSE METER Routine 09/20/2017 11:39 Results for this AM PRINTING PRESS OPERATOR procedure are in the results section. PROCALCITONIN Routine 09/20/2017 10:04 Results for this AM PRINTING PRESS OPERATOR procedure are in the results section. POCT-GLUCOSE METER Routine 09/20/2017 9:11 Results for this AM PRINTING PRESS OPERATOR procedure are in the results section. POCT-GLUCOSE METER Routine 09/20/2017 8:26 Results for this AM PRINTING PRESS OPERATOR procedure are in the results section. LACTIC ACID, VENOUS, Routine 09/20/2017 8:04 Results for this WHOLE BLOOD AM PRINTING PRESS OPERATOR procedure are in the results section. HEMOGLOBIN A1C Routine 09/20/2017 8:04 Results for this AM PRINTING PRESS OPERATOR procedure are in the results section. B-TYPE NATRIURETIC Routine 09/20/2017 8:04 Results for this FACTOR (BNP) AM PRINTING PRESS OPERATOR procedure are in the results section. STREP PNEUMONIAE Routine 09/20/2017 6:09 Results for this ANTIGEN AM PRINTING PRESS OPERATOR procedure are in the results section. (MANUAL DIFFERENTIAL) Routine 09/20/2017 3:01 Results for this AM PRINTING PRESS OPERATOR procedure are in the results section. CBC W/PLT COUNT & AUTO Routine 09/20/2017 3:01 Results for this DIFFERENTIAL AM PRINTING PRESS OPERATOR procedure are in the results section. PHOSPHORUS Routine 09/20/2017 3:01 Results for this AM PRINTING PRESS OPERATOR procedure are in the results section. MAGNESIUM Routine 09/20/2017 3:01 Results for this AM PRINTING PRESS OPERATOR procedure are in the results section. CREATINE KINASE (CK), STAT 09/20/2017 3:01 Results for this TOTAL AND MB AM PRINTING PRESS OPERATOR procedure are in the results section. TROPONIN I STAT 09/20/2017 3:01 Results for this AM PRINTING PRESS OPERATOR procedure are in the results section. FERRITIN Routine 09/20/2017 3:01 Results for this AM PRINTING PRESS OPERATOR procedure are in the results section. IRON, TIBC, % SAT. Routine 09/20/2017 3:01 Results for this (WITHOUT FERRITIN) AM PRINTING PRESS OPERATOR procedure are in the results section. BASIC METABOLIC PANEL Routine 09/20/2017 3:01 Results for this (7) AM PRINTING PRESS OPERATOR procedure are in the results section. CBC W/PLT COUNT & AUTO Routine 09/20/2017 3:01 Results for this DIFFERENTIAL AM PRINTING PRESS OPERATOR procedure are in the results section. RESPIRATORY PANEL [facility] ELADIO 09/20/2017 3:01 Results for this AM PRINTING PRESS OPERATOR procedure are in the results section. ECG 12-LEAD Routine 09/20/2017 2:43 AM PRINTING PRESS OPERATOR Procedure Note - Interface, External Ris In - 09/20/2017 2:52 AM PRINTING PRESS OPERATOR Ventricular Rate 79 BPM Atrial Rate 79 BPM P-R Interval 192 ms QRS Duration 152 ms Q-T Interval 456 ms QTC Calculation(Bazett) 522 ms P [place] 59 degrees R [place] -15 degrees T [place] 87 degrees Normal sinus rhythm Left bundle branch block Abnormal ECG No previous ECGs available ECG 12-LEAD STAT 09/20/2017 2:43 AM PRINTING PRESS OPERATOR POCT-GLUCOSE METER Routine 09/20/2017 12:49 AM PRINTING PRESS OPERATOR BLOOD CULTURE Routine 09/20/2017 12:43 AM PRINTING PRESS OPERATOR BLOOD CULTURE Routine 09/20/2017 12:43 AM PRINTING PRESS OPERATOR XR CHEST 1 VIEW STAT 09/20/2017 12:04 AM PRINTING PRESS OPERATOR Results for this procedure PORTABLE/BEDSIDE are in the results section. after 08/11/2017 Results EKG-SCANNED (09/29/2017 1:53 PM PRINTING PRESS OPERATOR) Narrative Performed At RHYTHM STRIP - SCAN (09/29/2017 1:53 PM PRINTING PRESS OPERATOR) Narrative Performed At ECHOCARDIOGRAM REPORT - SCAN (09/28/2017 1:50 PM PRINTING PRESS OPERATOR) Narrative Performed At POC-Glucose meter (09/28/2017 11:52 AM PRINTING PRESS OPERATOR)Only the most recent of37 resultswithin the time period is included. POC-Glucose Meter 181 (H)Comment: TESTED AT 70 - 110 mg/dL [facility] [address] [facility] [id number] Specimen Blood Performing Organization Address City/State/Zipcode Phone Number [address] [address] CENTER [place] (Attention: Tameka Luna, [facility]) (09/28/2017 6:09 AM PRINTING PRESS OPERATOR) Scan Result [facility] Specimen Blood - Vein Narrative Performed At Performing Organization Address City/State/Zipcode Phone Number [facility] [phone] [place], [place] Magnesium (09/28/2017 6:09 AM PRINTING PRESS OPERATOR)Only the most recent of9 resultswithin the time period is included. Magnesium 1.7 1.6 - 2.6 mg/dL [facility] Specimen Blood Performing Organization Address City/[facility]/Zipcode Phone Number [address] [address] CENTER Basic Metabolic Panel (09/28/2017 6:09 AM PRINTING PRESS OPERATOR)Only the most recent of9 resultswithin the time period is included. Sodium 135 (L) 136 - 145 meq/L [facility] Potassium 4.3 3.5 - 5.1 meq/L [facility] Chloride 106 98 - 107 meq/L [facility] CO2 19 (L) 22 - 29 meq/L [facility] BUN 49 (H) 7 - 21 mg/dL [facility] Creatinine 3.42 (H) 0.57 - 1.25 mg/dL [facility] Glucose 109 (H) 70 - 105 mg/dL [facility] Calcium 9.4 8.4 - 10.2 mg/dL [facility] EGFR 14Comment: ESTIMATED GFR IS mL/min/1.73 sq m [facility] NOT ACCURATE CREATININE [facility] CLEARANCE IN PREDICTING GLOMERULAR FILTRATION RATE. ESTIMATED GFR IS NOT APPLICABLE FOR DIALYSIS PATIENTS. Specimen Blood Performing Organization Address City/[facility]/Zipcode Phone Number [address] [address] [place] Body fluid culture + gram stain (09/27/2017 7:36 PM PRINTING PRESS OPERATOR) Result No growth [facility] Gram Stain Result No White blood cells seen [facility] Gram Stain Result No organisms seen [facility] Specimen Body Fluid - Pleural, Right Performing Organization Address [facility] Phone Number [address] [address] [place] Body fluid cell count with differential (09/27/2017 7:36 PM PRINTING PRESS OPERATOR) Appearance Bloody (A) Clear [facility] Color Pita (A) Colorless, Straw [facility] RBCs 10,000 (H) <=1 /cu mm [facility] Adjusted WBC Count 3,032 (H) <=5 /cu mm [facility] Lining Cells 121 (H) <=1 /cu mm [facility] % Segs 32 % [facility] % Lymphs 6 % [facility] % Monos 60 % [facility] % Eos 2 % [facility] % Baso 0 % [facility] Container Body Fluid EDTA Tube [facility] Specimen Body Fluid - Pleural, Right Performing Organization Address [facility]/Zipcode Phone Number [address] [phone] [place] Protein, body fluid (09/27/2017 7:36 PM PRINTING PRESS OPERATOR) Protein, Fluid 3.6 Light's criteria identifies [facility] effusions if one or more are MEDICAL CENTER present: Pleural to serum protein ratio of more than 0.5; Pleural to Serum LDH of more than 0.6; Pleural LDH of more than two third of upper serum reference limit g/dL Specimen Body Fluid - Pleural, Right Narrative Performed At [facility] Absence of reference range indicates that normals have not been defined. Assay performance has not been validated for this type of specimen. Performing Organization Address City/State/Zipcode Phone Number [address] [address] [phone] CENTER Lactate dehydrogenase (LDH), body fluid (09/27/2017 7:36 PM PRINTING PRESS OPERATOR) LDH, Fluid 234 Light's criteria identifies [facility] MEDICAL effusions if one or more are CENTER present: Pleural to serum protein ratio of more than 0.5; Pleural to serum LDH ratio of more than 0.6; Pleural LDH more than two third of upper serum reference limit U/L Specimen Body Fluid - Pleural, Right Narrative Performed At [facility] Absence of reference range indicates that normals have not been defined. Assay performance has not been validated for this type of specimen. Performing Organization Address City/State/Zipcode Phone Number [address] [phone] CENTER Limited 2D Echocardiogram (09/27/2017 6:59 PM PRINTING PRESS OPERATOR) Ejection Fraction [facility] Narrative Performed At Transthoracic Echocardiography Report (TTE) [facility] Demographics Patient Name MIKE ZIEGLERDate of Study 09/27/2017 [id number] GenderFemale Visit Number [id number] RaceUnknown [id number] m Number [id number] Number Date of Birth1955 Referring Physician Anastacio Rutledge MD Age62 year(s) Configurator David Deal [facility] AnalysCarol Gotti MD RD Physician Procedure Type [...] External Ris In - 09/28/2017 1:03 PM PRINTING PRESS OPERATOR Transthoracic Echocardiography Report (TTE) Demographics Patient Name MIKE ZIEGLER Date of Study 09/27/2017 Gender Female Visit Number [id number] Race Unknown Room Number 926 Number Date of 1955 Referring Physician Anastacio Rutledge MD Age 62 year(s) Configurator David Deal [facility] 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 Tuning Engineer Aure Tarango, Interpreting Zbigniew Fortune MD [facility] Physician Procedure Type of Study TTE procedure:LIMITED [...] LVOT Area: 4.08 cm^2 Performing Organization Address City/State/[facility] Phone Number [facility] thoracentesis (09/27/2017 4:15 PM PRINTING PRESS OPERATOR) Narrative Performed At FINAL REPORT [employer] Ultrasound guided right thoracentesis Clinical History:Pleural effusion [...] manner.After the area is anesthetized, a 4 [place] catheter is advanced into the pleural space. [...] MD Report Verified Date/Time:09/27/2017 17:19:37 Reading Location: [address] Ultrasound Reading Room Procedure Note Interface, External Ris In - 09/27/2017 5:21 PM PRINTING PRESS OPERATOR FINAL REPORT Ultrasound guided right thoracentesis Clinical [...] After the area is anesthetized, a 4 Ukrainian catheter is advanced into the pleural space. [...] Report Verified Date/Time: 09/27/2017 17:19:37 Reading Location: [facility] B1 [id number] Ultrasound Reading Room Performing Organization Address City/State/Zipcode Phone Number GE RIS XR chest 1 view portable / bedside (09/27/2017 4:10 PM PRINTING PRESS OPERATOR)Only the most recent of5 resultswithin the time period is included. Narrative Performed At FINAL REPORT GE RIS AP chest HISTORY: Thoracentesis COMPARISON: 09/27/2017 IMPRESSION: Intact skeleton. Cardiac silhouette mildly enlarged. Mild interstitial prominence, similar to previous. Right effusion appears decreased. No pneumothorax. Signed: Tari Lea MD Report Verified Date/Time:09/27/2017 16:21:56 Reading Location: [facility] Mammo Reading Room Procedure Note Interface, External Ris In - 09/27/2017 4:24 PM PRINTING PRESS OPERATOR FINAL REPORT AP chest HISTORY: Thoracentesis COMPARISON: 09/27/2017 IMPRESSION: Intact skeleton. Cardiac silhouette mildly enlarged. Mild interstitial prominence, similar to previous. Right effusion appears decreased. No pneumothorax. Signed: Tari Lea MD Report Verified Date/Time: 09/27/2017 16:21:56 Reading Location: [facility] Mammo Reading Room Performing Organization Address City/[facility] Phone Number GE RIS Vitamin B12 and Folate (09/27/2017 4:54 AM PRINTING PRESS OPERATOR) Vitamin B12 >2000 (H) 213 - 816 pg/mL [facility] Folate 13.3 >=7.0 ng/mL [facility] Specimen Blood Performing Organization Address City/State/Zipcode Phone Number [facility] MEDICAL [address] [place] [address] [phone] CENTER ECHOCARDIOGRAM REPORT - SCAN (09/26/2017 4:59 PM PRINTING PRESS OPERATOR) Narrative Performed At 2D Echo W/Doppler(CW/PW/Color) (09/26/2017 11:38 AM PRINTING PRESS OPERATOR) Ejection Fraction [facility] Narrative Performed At Transthoracic Echocardiography Report (TTE) [facility] Demographics Patient NameMIKE ZIEGLER Date of Study09/26/2017 Female Visit [id number] Unknown Room [id number] Number Date of 1955Referring Physicianvickey Rutledge MD Age 62 year(s)Configurator Tamir Gill [facility] Camera Tuning Engineer Aure Tarango, Interpreting Trevor Tristan MD RDCSPhysician Procedure Type of Study TTE procedure:2DECHO W DOPPLER(CW/PW/COLOR) (ELADIO) Indications:Suspected Pericardial conditions. Clinical History ASTHMA, COPD, OBESITY, LBBB, CAD, A.FIB. HTN, CHF, STROKE Contrast Medium: Definity. Amount - 2 ml Height: 66 inches Weight: 120.66 kg (266.01 lbs) BSA: 2.26 m^2 BMI: 42.93 kg/m^2 HR: 96 bpm BP: 146/65 mmHg Summary A ysqgf-he-oaunefak pericardial effusion is present . The pericardial effusion is circumferential . The pericardial effusion measures 2.8 cm by the right atrium in the subcostal view. NO signs of tamponacde LV endocardium is adequately visualized with IV ultrasound enhancing agent. The left ventricle is chamber size (by vol index) is mildly enlarged (female - LVED 62-70ml/m2). Arxk-cs-ahkxoeir concentric LV hypertrophy. All of the LV [...] mildly enlarged (female - LVED 62-70ml/m2). Mi qb-ci-bhklxyqb concentric LV hypertrophy. Al l of the LV segments contract normally . Gl obal LV systolic function normal . LV EF by Feldman's method of disk assessment is no rmal (55-60%) . Th e LVEF was measured using Feldman's single plane me thod (apical 2 chamber) . Gr jillian 1 diastolic dysfunction (impaired relaxation an d [...] Valsalva diameter) is no rmal . PericardiumA wjkkg-zr-pgadoeod pericardial effusion is present . Th e [...] External Ris In - 09/26/2017 4:07 PM PRINTING PRESS OPERATOR Transthoracic Echocardiography Report (TTE) Demographics Patient Name MIKE ZIEGLER Date of Study 09/26/2017 Gender Female Visit Number [id number] Race Unknown Room Number [id number] Number Date of 1955 Referring Physician vickey Rutledge MD Age 62 year(s) Configurator Tamir Gill [facility] Camera Tuning Engineer Aure Tarango, Interpreting Trevor Tristan MD [facility] Physician Procedure Type of Study TTE procedure:2DECHO W DOPPLER(CW/PW/COLOR) (ELADIO) Indications:Suspected Pericardial conditions. Clinical History ASTHMA, COPD, OBESITY, LBBB, CAD, A.FIB. HTN, CHF, STROKE Contrast Medium: Definity. Amount - 2 ml Height: 66 inches Weight: 120.66 kg (266.01 lbs) BSA: 2.26 m^2 BMI: 42.93 kg/m^2 HR: 96 bpm BP: 146/65 mmHg Summary A kupgz-em-hahrglss pericardial effusion is present . The pericardial effusion is circumferential . The pericardial effusion measures 2.8 cm by the right atrium in the subcostal view. NO signs of tamponacde LV endocardium is adequately visualized with IV ultrasound enhancing agent. The left ventricle is chamber size (by vol index) is mildly enlarged (female - LVED 62-70ml/m2). Tgus-cy-goicgkwy concentric LV hypertrophy. All of the LV [...] is mildly enlarged (female - LVED 62-70ml/m2). Dvde-ur-bjmsxjma concentric LV hypertrophy. All of the LV [...] Valsalva diameter) is normal . Pericardium A bmgwi-qq-iccebhbs pericardial effusion is present . The pericardial [...] LVOT CI: 3.37 l/min/m^2 Performing Organization Address [facility] Centercode Phone Number [facility] MKCKESSON CPACS PT/aPTT (09/26/2017 11:10 AM PRINTING PRESS OPERATOR) Protime 14.5 11.7 - 14.7 seconds [facility] INR 1.1 <=5.9 [facility] PTT 39.2 (H) 22.5 - 36.0 seconds [facility] Specimen Blood - Arm, Left Narrative Performed At [facility] RECOMMENDED COUMADIN/WARFARIN INR THERAPY RANGES STANDARD DOSE: 2.0 - 3.0 Includes: PROPHYLAXIS for venous thrombosis, systemic embolization; TREATMENT for venous thrombosis and/or pulmonary embolus. HIGH RISK: Target INR is 2.5-3.5 for patients with mechanical heart valves. Performing Organization Address [facility] Centercode Phone Number [facility] [address] [place] [address] [phone] CENTER Platelet count (09/26/2017 11:10 AM PRINTING PRESS OPERATOR) Platelets 501 (H) 150 - 450 K/CU MM [facility] Specimen Blood - Arm, Left Performing Organization Address [facility] Centercode Phone Number [facility] [address] [place] [phone] CENTER Protein, total (09/26/2017 11:10 AM PRINTING PRESS OPERATOR) Protein, Total 6.1 6.0 - 8.3 gm/dL [facility] Specimen Blood - Arm, Left Performing Organization Address [facility] Centercoak Phone Number [address] [address] [phone] CENTER Lactate dehydrogenase (LDH) (09/26/2017 11:10 AM PRINTING PRESS OPERATOR) LDH 309 (H) 125 - 220 U/L [facility] Specimen Blood - Arm, Left Performing Organization Address [facility] Center[facility] Phone Number [address] [address] CENTER XR chest 2 views (09/25/2017 6:37 PM PRINTING PRESS OPERATOR) Narrative Performed At FINAL REPORT [facility] Examination: Two view Chest X-ray. CLINICAL HISTORY: [...] MD Report Verified Date/Time:09/25/2017 19:38:01 Reading Location: [address] Reading Room Procedure Note Interface, External Ris In - 09/25/2017 7:40 PM PRINTING PRESS OPERATOR FINAL REPORT Examination: Two view Chest X-ray. [...] Report Verified Date/Time: 09/25/2017 19:38:01 Reading Location: [address] Reading Room Performing Organization Address City/State/Zipcode Phone Number [employer] Protein, random urine (09/24/2017 4:18 PM PRINTING PRESS OPERATOR) Protein, Urine 154 (H) 0 - 14 mg/dL [facility] Specimen Urine Performing Organization Address [facility] Phone Number [address] [address] [phone] [place] Creatinine, random urine (09/24/2017 4:18 PM PRINTING PRESS OPERATOR)Only the most recent of2 resultswithin the time period is included. Creatinine, Ur 88.8 mg/dL [facility] Specimen Urine Narrative Performed At [facility] Reference Range: No Normals Performing Organization Address [facility] Phone Number [address] [address] [place] myocardial perfusion PET (rest and stress) (09/24/2017 2:57 PM PRINTING PRESS OPERATOR) Narrative Performed At FINAL REPORT GE [facility] PROCEDURE:Rest/Stress MYOCARDIAL PERFUSION PET with regadenoson\\XA9\\ CPT CODE:60908 INDICATION:Chest pain, hypokinesis on echo HISTORY:Cardiac risk [...] Extracardiac tracer distribution is normal.6. No previous [facility] study for comparison. NONINVASIVE RISK STRATIFICATION: The above findings are considered low risk based on the following criteria: 1)Normal or small myocardial perfusion defect at rest or with stress (JACC. 2012;59(9):857-81.) Signed: Selvin Braswell MD Report Verified Date/Time:09/24/2017 16:36:36 Procedure Note Interface, External Ris In - 09/24/2017 4:38 PM PRINTING PRESS OPERATOR FINAL REPORT PROCEDURE: Rest/Stress MYOCARDIAL PERFUSION PET with regadenoson\\XA9\\ CPT CODE: 77250 INDICATION: Chest pain, hypokinesis on echo HISTORY: [...] tracer distribution is normal. 6. No previous [facility] study for comparison. NONINVASIVE RISK STRATIFICATION: The above findings are considered low risk based on the following criteria: 1)Normal or small myocardial perfusion defect at rest or with stress (JACC. 2012;59(9):857-36.) Signed: Selvin Braswell MD Report Verified Date/Time: 09/24/2017 16:36:36 Performing Organization Address City/State/Zipcode Phone Number GE RIS Treadmill tolerance(Non-Nuclear Treadmill) (09/24/2017 2:52 PM PRINTING PRESS OPERATOR) Narrative Performed At Protocol Name Regadenosanjali GE [...] 11:19:37 AM Confirmed by MD CABRERA JORGE ([id number]) on 09/28/2017 4:43:16 PM Procedure Note Interface, External Ris In - 09/28/2017 4:43 PM PRINTING PRESS OPERATOR Protocol Name Regadenoson Time In Exercise Phase [...] 11:19:37 AM Confirmed by MD CABRERA JORGE ([id number]) on 09/28/2017 4:43:16 PM Performing Organization Address City/State/Zipcode Phone Number GE MUSE Vancomycin level, random (09/24/2017 4:21 AM PRINTING PRESS OPERATOR)Only the most recent of3 resultswithin the time period is included. Vancomycin Rm 16.6 ug/mL [facility] Specimen Blood Narrative Performed At [facility] Reference Range: No Normals Performing Organization Address City/State/Zipcode Phone Number [facility] [address] [place] [address] CENTER US renal complete (09/23/2017 10:02 PM PRINTING PRESS OPERATOR) Narrative Performed At FINAL REPORT GE [employer] U/S, RENAL, COMPLETE CLINICAL INDICATION:"Elevated creatinine" COMPARISON: [...] MD Report Verified Date/Time:09/23/2017 22:13:52 Reading Location: [address] Ortho Consult Reading Room Procedure Note Interface, External Ris In - 09/23/2017 10:16 PM PRINTING PRESS OPERATOR FINAL REPORT U/S, RENAL, COMPLETE CLINICAL INDICATION: [...] Report Verified Date/Time: 09/23/2017 22:13:52 Reading Location: [facility] [id number] Ortho Consult Reading Room Performing Organization Address City/State/Zipcode Phone Number GE RIS Urinalysis w/Microscopic + Reflex to Culture (09/23/2017 12:14 PM PRINTING PRESS OPERATOR) Color, UA Yellow [facility] Clarity, UA Hazy [facility] Specific [place]verse, UA 1.010 1.001 - 1.035 [facility] pH, UA 5.5 5.0 - 8.0 [facility] Protein, UA 100 mg/dL (A) Negative [facility] Glucose, UA 30 mg/dL (A) Negative [facility] Ketones, UA Negative Negative [facility] Bilirubin, UA Negative Negative [facility] Blood, UA Negative Negative [facility] Nitrite, UA Negative Negative [facility] Leukocytes, UA Negative Negative [facility] Urobilinogen, UA 0.2 0.2 - 1.0 mg/dL [facility] RBC, UA 0 /HPF [facility] WBC, UA 1 /HPF [facility] Bacteria, UA Occasional [facility] Mucus Rare [facility] Squam Epithel, UA 11 /HPF [facility] Yeast Rare [facility] Specimen Source [facility] Specimen Urine - Urine, Clean Catch Performing Organization Address City/[facility]/Zipcode Phone Number [address] [address] [phone] CENTER Sodium, random urine (09/23/2017 12:14 PM PRINTING PRESS OPERATOR) Sodium Urine 31 meq/L [facility] Specimen Urine - Urine, Clean Catch Narrative Performed At [facility] Reference Range: No Normals Performing Organization Address City/[facility]/Zipcode Phone Number [facility] [address] CENTER CBC with platelet count + automated diff (09/23/2017 5:37 AM PRINTING PRESS OPERATOR)Only the most recent of4 resultswithin the time period is included. WBC 12.7 (H) 3.5 - 10.5 K/L [facility] RBC 2.61 (L) 3.93 - 5.22 M/L [facility] Hemoglobin 7.9 (L) 11.2 - 15.7 GM/DL [facility] Hematocrit 24.7 (L) 34.1 - 44.9 % [facility] MCV 94.6 79.4 - 94.8 fL [facility] MCH 30.3 25.6 - 32.2 pg [facility] MCHC 32.0 (L) 32.2 - 35.5 GM/DL [facility] RDW 14.2 11.7 - 14.4 % [facility] Platelets 466 (H) 150 - 450 K/CU MM [facility] MPV 10.6 9.4 - 12.3 fL [facility] nRBC 0 0 - 0 /100 WBC [facility] % Neutros 64 % [facility] % Lymphs 17 % [facility] % Monos 11 % [facility] % Eos 7 % [facility] % Baso 0 % [facility] # Neutros 8.16 (H) 1.56 - 6.13 K/L [facility] # Lymphs 2.14 1.18 - 3.74 K/L [facility] # Monos 1.35 (H) 0.24 - 0.36 K/L [facility] # Eos 0.83 (H) 0.04 - 0.36 K/L [facility] # Baso 0.04 0.01 - 0.08 K/L [facility] Immature Granulocytes-Relative 2 (H) 0 - 1 % [facility] Specimen Blood Performing Organization Address City/State/Zipcode Phone Number [facility] [address] [place] [address] CENTER CMV PCR, quantitative (09/22/2017 4:44 AM PRINTING PRESS OPERATOR) CMV DNA Viral Load Negative or below the linear [facility] range of the assay (<375 [facility] copies/mL) Specimen Blood - Arm, Right Narrative Performed At Cytomegalovirus (CMV) infection can cause [facility] significant disease in immunosuppressed patients. However, it [...] its performance characteristics determined by the [facility] Pathology Department, Section of Molecular Pathology. It has not been cleared or approved by the U.S. Food and Drug Administration (FDA), since FDA approval is not required for clinical use of the test. Validation was done as required by The Clinical Laboratory Improvement Amendments of 1988. Performing Organization Address City/State/Zipcode Phone Number [facility] [address] [address] CENTER Mycoplasma pneumoniae antibody, IgM (09/22/2017 4:44 AM PRINTING PRESS OPERATOR) M. pneumoniae Ab IgM, 139 U/mL [facility] [...] - Arm, Right Narrative Performed At Performing [employer] *[employer] [address] [place] [address] Matthew Wolff MD Performing Organization Address [facility] [place] [address] [employer] [address] [facility] Mycoplasma pneumoniae antibody, IgG (09/22/2017 4:44 AM PRINTING PRESS OPERATOR) Mycoplasma Igg < or=0.90 [facility] [...] - Arm, Right Narrative Performed At Performing [facility] *[employer] [address] [place] [address] Matthew Wolff MD Performing Organization Address [facility] [place] [address] [employer] [address] [facility] Bronchial culture + gram stain (09/21/2017 12:52 PM PRINTING PRESS OPERATOR) Result No growth [facility] Gram Stain Result <1+ WBCs [facility] Gram Stain Result No organisms seen [facility] Specimen BAL - Lung, Right Middle Lobe Performing Organization Address [facility]/Zipcode Phone Number [facility] [address] [place] [address] [phone] CENTER SPIN/CONCENTRATION CHARGE (09/21/2017 12:49 PM PRINTING PRESS OPERATOR) Concentration charged Done [facility] Specimen Body Fluid - BAL Performing Organization Address [facility] Centercode Phone Number [address] [address] [place] [employer] culture + smear (09/21/2017 12:49 PM PRINTING PRESS OPERATOR) Result No acid-fast bacilli isolated in [facility] 42 days CENTER [employer] Smear No acid fast bacilli seen [facility] Specimen Body Fluid - BAL Performing Organization Address [facility]/Zipcode Phone Number [address] [address] [phone] [place] Fungus culture + smear (09/21/2017 12:49 PM PRINTING PRESS OPERATOR) Result No fungus isolated in 28 days [facility] Fungus Smear No fungi seen [facility] Specimen BAL - Lung, Right Middle Lobe Performing Organization Address [facility] Centercode Phone Number [address] [address] [phone] [place] Blood gas, arterial (09/21/2017 11:02 AM PRINTING PRESS OPERATOR) pH, Arterial 7.43 7.35 - 7.45 [facility] pCO2, Arterial 32 (L) 35 - 45 mmHg [facility] pO2, Arterial 226 (H) 80 - 90 mmHg [facility] O2 Sat, Arterial 99.5 (H) 96.0 - 97.0 % [facility] HCO3, Arterial 21 21 - 29 mmol/L [facility] Base Excess, Arterial -3.3 (L) -2.0 - 3.0 mmol/L [facility] Patient Temperature 36.9 C [facility] FIO2 60.0 % [facility] Specimen Blood, Arterial - Arm, Right Performing Organization Address City/State/Zipcode Phone Number [facility] [address], [place] [phone] [place] ECHOCARDIOGRAM REPORT - SCAN (09/20/2017 5:15 PM PRINTING PRESS OPERATOR) Narrative Performed At Legionella antigen, urine (09/20/2017 3:30 PM PRINTING PRESS OPERATOR) Legionella Urine Antigen Negative - see [facility] commentComment: Negative [facility] for L. pneumophila serogroup 1 antigen, suggesting no recent or current infection with this serogroup. Legionellosis cannot be ruled out since other serogroups and species may cause disease. Specimen Urine - Urine, Sterile Collection Performing Organization Address City/[facility] Centercode Phone Number [facility] [address] [place] [address] [phone] [place] 2D Echo W/O Doppler(No Doppler) (09/20/2017 1:08 PM PRINTING PRESS OPERATOR) Ejection Fraction [facility] Narrative Performed At Transthoracic Echocardiography Report (TTE) [facility] Demographics Patient NameMIKE ZIEGLER Date of Study09/20/2017 Female Visit [id number] Unknown Room [id number] Number Date of 1955Referring Sebastian minaya Age 62 year(s)Configurator Rahel Marrero Camera Tuning Engineer Aure Tarango, Interpreting Aleisha De Paz MD [...] Global LV systolic function normal . A zjszz-of-qavftmnv pericardial effusion is present . The pericardial [...] Valsalva diameter) is no rmal . PericardiumA kcjmy-wu-kblfexjz pericardial effusion is present . Th e [...] External Ris In - 09/20/2017 4:09 PM PRINTING PRESS OPERATOR Transthoracic Echocardiography Report (TTE) Demographics Patient Name MIKE ZIEGLER Date of Study 09/20/2017 Gender Female Visit Number [id number] Race Unknown Room Number 7215 Number Date of 1955 Referring Physician vickey minaya Age 62 year(s) Configurator Rahel Marrero Camera Tuning Engineer Aure Tarango, Interpreting Aleisha De Paz MD [facility] Physician Procedure Type of Study TTE procedure:ECHO2D [...] Global LV systolic function normal . A pfaxi-pz-ywquxbpd pericardial effusion is present . The pericardial [...] Valsalva diameter) is normal . Pericardium A frrnh-ma-tajuuxlj pericardial effusion is present . The pericardial [...] LVOT CI: 3.8 l/min/m^2 Performing Organization Address [facility] Phone Number [facility] MKCKESSON CPACS Procalcitonin (09/20/2017 10:04 AM PRINTING PRESS OPERATOR) Procalcitonin 2.35 (H) <0.05 ng/mL [facility] Specimen Blood Narrative Performed At [facility] SEPSIS RISK (ng/mL) Low:0.05-0.50 Intermediate: 0.51-2.00 High: >=2.01 Performing Organization Address [facility] Phone Number [address] [address] [place] Lactic acid, venous, whole blood (09/20/2017 8:04 AM PRINTING PRESS OPERATOR) Lactate, Venous 0.5 0.5 - 2.2 mmol/L [facility] Specimen Blood Narrative Performed At [facility] Effective 01/27/2016: Units/Reference Range Change New: 0.5-2.2 mmol/LPrevious: 5-20 mg/dL Performing Organization Address [facility] Phone Number [address] [address] [phone] CENTER B-type Natriuretic Factor (BNP) (09/20/2017 8:04 AM PRINTING PRESS OPERATOR) BNP 22 0 - 100 pg/mL [facility] Specimen Blood Performing Organization Address [facility] Phone Number [address] [address] CENTER Hemoglobin A1c (09/20/2017 8:04 AM PRINTING PRESS OPERATOR) Hemoglobin A1C 6.8 (H) 4.3 - 6.1 % [facility] Specimen Blood Performing Organization Address City/State/Zipcode Phone Number [facility] [address], [place] [phone] [place] Strep pneumoniae antigen (09/20/2017 6:09 AM PRINTING PRESS OPERATOR) Strep pneumoniae Presumptive negative Presumptive negative [facility] Antigen for pneumococcal for pneumococcal [facility] pneumonia - see comment pneumonia - see CENTER comment, Presumptive negative for pneumococcal meningitis - see comment Specimen Urine - Urine, Unspecified Source Narrative Performed At Presumptive negative for pneumococcal [facility] pneumonia, suggesting no current or recent pneumococcal infection. Infection due to S. pneumoniae cannot be ruled out since the antigen present in the sample may be below the detection limit of the test. Performing Organization Address City/State/Zipcode Phone Number [place] [phone] [place], [place] [phone] [place] Manual Differential (09/20/2017 3:01 AM PRINTING PRESS OPERATOR) % Neutros (manual) 54 % [facility] % Lymphs (manual) 13 % [facility] % Monos (manual) 11 % [facility] % Eos (manual) 6 % [facility] % Metamyelo (manual) 3 (H) 0 - 0 % [facility] % Myelo (manual) 2 (H) 0 - 0 % [facility] % Bands (manual) 11 (H) 0 - 10 % [facility] # Neutros (manual) 6.70 1.80 - 8.00 K/L [facility] # Lymphs (manual) 1.61 1.48 - 4.50 K/L [facility] # Monos (manual) 1.36 (H) 0.00 - 1.30 K/L [facility] # Eos (manual) 0.74 (H) 0.00 - 0.50 K/L [facility] # Metamyelo (manual) 0.37 (H) 0.00 - 0.00 K/L [facility] # Bands (manual) 1.4 (H) 0.0 - 0.8 K/L [facility] # Myelo (manual) 0.25 (H) 0.00 - 0.00 K/L [facility] MEDICAL [place] Total Counted 100 [facility] Bands plus Segmented 8.06 [facility] Neutrophils [facility] WBC Morphology Normal [facility] Platelet Morphology Normal [facility] Anisocytosis 2+ moderate [facility] Poikilocytes 2+ moderate [facility] Specimen Blood Performing Organization Address City/State/Zipcode Phone Number [facility] [address] [place] [address] [phone] CENTER RESPIRATORY PANEL HS (09/20/2017 3:01 AM PRINTING PRESS OPERATOR) Human Metapneumovirus Not detected Not detected, [facility] Rhinovirus Not detected Not detected, [facility] Influenza A Not detected Not detected, [facility] Influenza A subtype H1 Not detected Not detected, [facility] Influenza A Subtype H3 Not detected Not detected, [facility] Influenza A Subtype H1-2009 Not detected Not detected, [facility] Influenza B Not detected Not detected, [facility] Respiratory Syncytial Virus Not detected Not detected, [facility] Parainfluenza Virus 1 Not detected Not detected, [facility] Parainfluenza Virus 2 Not detected Not detected, [facility] Parainfluenza virus 3 Not detected Not detected, [facility] Parainfluenza Virus 4 Not detected Not detected, [facility] Adenovirus Not detected Not detected, [facility] Coronavirus 229E Not detected Not detected, [facility] Coronavirus HKU1 Not detected Not detected, [facility] Coronavirus NL63 Not detected Not detected, [facility] Coronavirus OC43 Not detected Not detected, [facility] Bordetella Pertussis Not detected Not detected, [facility] Chlamydophila Pneumoniae Not detected Not detected, [facility] Mycoplasma Pneumoniae Not detected Not detected, [facility] Specimen Nasopharyngeal - Nasopharyngeal Swab Performing Organization Address [facility] Phone Number [address] [address] [phone] [place] Iron, TIBC, % sat. (without ferritin) (09/20/2017 3:01 AM PRINTING PRESS OPERATOR) Iron 27 (L) 40 - 160 ug/dL [facility] TIBC 186 (L) 250 - 450 ug/dL [facility] Iron % Saturation 15 (L) 20 - 55 % [facility] Specimen Blood Performing Organization Address [facility] Phone Number [address] [address] [place] Troponin I (09/20/2017 3:01 AM PRINTING PRESS OPERATOR) Troponin I <0.01 0.00 - 0.03 ng/mL [facility] Specimen Blood Narrative Performed At [facility] Troponin I (TnI) levels must be interpreted [...] disease, and persistent tachyarrhythmia. Performing Organization Address [facility] Phone Number [address] [address] CENTER Phosphorus (09/20/2017 3:01 AM PRINTING PRESS OPERATOR) Phosphorus 4.2 2.3 - 4.7 mg/dL [facility] Specimen Blood Performing Organization Address [facility] Phone Number [address] [address] C[place] Ferritin (09/20/2017 3:01 AM PRINTING PRESS OPERATOR) Ferritin 535 (H) 5 - 275 ng/mL [facility] Specimen Blood Performing Organization Address [facility] Phone Number [address] [address] [place] Creatine Kinase (CK), Total and MB (09/20/2017 3:01 AM PRINTING PRESS OPERATOR) Total CK 76 29 - 200 U/L [facility] CK-MB 1.9 0.0 - 6.6 ng/mL [facility] MB Relative Index 2.5 % [facility] Specimen Blood Narrative Performed At CK-MB Reference Range: [facility] <6.7Normal 6.7-10.0Borderline >10.0 Abnormal Performing Organization Address [facility] Phone Number [address] [address] [phone] CENTER ECG 12 lead (09/20/2017 2:43 AM PRINTING PRESS OPERATOR) Narrative Performed At Ventricular Rate 79 BPM GE MUSE Atrial Rate 79 BPM P-R Interval 192 ms QRS Duration 152 ms Q-T Interval 456 ms QTC Calculation(Bazett) 522 ms P [place] 59 degrees R [place] -15 degrees T [place] 87 degrees Normal sinus rhythm Left bundle branch block Prolonged QT Abnormal ECG No previous ECGs available Confirmed by MD TRISTAN YOCHAI ([id number]) on 09/20/2017 6:40:55 AM Procedure Note Interface, External Ris In - 09/20/2017 6:41 AM PRINTING PRESS OPERATOR Ventricular Rate 79 BPM Atrial Rate 79 BPM P-R Interval 192 ms QRS Duration 152 ms Q-T Interval 456 ms QTC Calculation(Bazett) 522 ms P [place] 59 degrees R [place] -15 degrees T [place] 87 degrees Normal sinus rhythm Left bundle branch block Prolonged QT Abnormal ECG No previous ECGs available Confirmed by MD RAZIA, TREVOR ([id number]) on 09/20/2017 6:40:55 AM Performing Organization Address City/State/[facility] Phone Number [facility] Blood culture (09/20/2017 12:43 AM PRINTING PRESS OPERATOR)Only the most recent of2 resultswithin the time period is included. Result No growth in 5 days [facility] Specimen Blood - Arm, Left Performing Organization Address City/State/Zipcode Phone Number [facility] [address] [place] [address] CENTER after 08/11/2017 Insurance Payer Benefit Plan / Subscriber ID Type Phone Address Group [employer]UE [employer] xxxxxxxxxxxxxxx PPO [phone] [address] [employer] [place] [address] Advance Directives For more information, please contact:[address] [phone] Code Status Date Activated Date Inactivated Comments Full Code 09/19/2017 11:09 PM 09/28/2017 8:58 PM This code status was determined by: Patient
--- OUTSIDE RECORDS SUMMARY | 2018-08-12 02:49 | XMS REPORT ---
:1955 [facility] Address [address] [place] [address] Dr. Chavira. [address] [place] [address] Care Team Providers Name Role Phone DR [...] ID 2017-12-20 2017-12-20 Outpatient C [facility] [id number] 05:45:00 10:51:00 Results Test Description Test Time Test Comments Text Results Atomic Results Result Comments GLUCOMETER GLUCOSE- LAB USE ONLY 2017-12-20 09:57:00 Test Item Value Reference Range Comments GLUCOMETER (test code=GMG) 163 mg/dL 70-100 Meter ID: [id number]: [id number] ARIC ROBERSON GLUCOMETER GLUCOSE- LAB USE [id number] 06:56:00 Test Item Value Reference Range Comments GLUCOMETER (test code=GMG) 148 mg/dL 70-100 CLEANED METERMeter ID: [id number]: 4902 [employer] CULTURE + [id number] 18:43:00 Test Item Value Reference Range Comments CULTURE (BEAKER) (test No acid-fast bacilli isolated lbzp=5377) in 42 days AFB SMEAR (BEAKER) (test No acid fast bacilli seen awxk=235) FUNGUS CULTURE + [id number] 13:42:00 Test Item Value Reference Range Comments CULTURE (BEAKER) (test No fungus isolated in 28 days emmm=9069) FUNGUS SMEAR (BEAKER) (test No fungi seen hxtj=4055) BODY FLUID CULTURE + GRAM [id number] 06:03:00 Test Item Value Reference Range Comments CULTURE (BEAKER) (test iajq=7579) No growth GRAM STAIN RESULT (BEAKER) (test No White blood cells seen snyv=2888) GRAM STAIN RESULT (BEAKER) (test No organisms seen xdnv=01795) POCT-GLUCOSE [id number] 12:20:00 Test Item Value Reference Range Comments POC-GLUCOSE METER (BEAKER) 181 mg/dL 70-110 TESTED AT [address] (test pyyj=4282) [place] [address] POCT-GLUCOSE [id number] 08:56:00 Test Item Value Reference Range Comments POC-GLUCOSE METER (BEAKER) 119 mg/dL 70-110 TESTED AT [address] (test lllc=3957) [place] [id number] BASIC METABOLIC [id number] 07:37:00 Test Item Value Reference Range Comments SODIUM (BEAKER) (test 135 meq/L 136-145 rtxf=433) POTASSIUM (BEAKER) (test 4.3 meq/L 3.5-5.1 eiim=065) CHLORIDE (BEAKER) (test 106 meq/L 98-107 mbia=693) CO2 (BEAKER) (test 19 meq/L 22-29 kcnp=562) BLOOD UREA NITROGEN 49 mg/dL 7-21 (BEAKER) (test lewc=364) CREATININE (BEAKER) (test 3.42 mg/dL 0.57-1.25 mzqn=776) GLUCOSE RANDOM (BEAKER) 109 mg/dL 70-105 (test sdzk=106) CALCIUM (BEAKER) (test 9.4 mg/dL 8.4-10.2 buql=889) EGFR (BEAKER) (test 14 mL/min/1.73 sq m ESTIMATED GFR IS NOT eitp=2294) ACCURATE CREATININE CLEARANCE IN PREDICTING GLOMERULAR FILTRATION RATE. ESTIMATED GFR IS NOT APPLICABLE FOR DIALYSIS PATIENTS. [id number] 07:36:00 Test Item Value Reference Range Comments MAGNESIUM (BEAKER) (test kdub=048) 1.7 mg/dL 1.6-2.6 BODY FLUID CELL COUNT WITH [id number] 22:37:00 Test Item Value Reference Range Comments APPEARANCE FLUID (BEAKER) (test sugx=290) Bloody Clear COLOR FLUID (BEAKER) (test hhww=094) Pita Colorless, Straw RBC FLUID (BEAKER) (test rzmm=250) [address]4415 /cu mm <=1 ADJUSTED WBC FLUID (BEAKER) (test kqbp=5140) 3032 /cu mm <=5 LINING CELLS (BEAKER) (test idoq=3452) 121 /cu mm <=1 NEUTROPHILS FLUID (BEAKER) (test ezny=8951) 32 % LYMPHS FLUID (BEAKER) (test done=849) 6 % MONO/MACROPHAGE FLUID (BEAKER) (test xemb=461) 60 % EOSINOPHILS FLUID (BEAKER) (test kalb=063) 2 % BASO FLUID (BEAKER) (test obuc=474) 0 % CONTAINER BODY FLUID (BEAKER) (test nisl=8411) EDTA Tube POCT-GLUCOSE [id number] 21:26:00 Test Item Value Reference Range Comments POC-GLUCOSE METER (BEAKER) 165 mg/dL 70-110 TESTED AT [address] (test gbwk=4454) [facility] [address] LACTATE DEHYDROGENASE (LDH), BODY [id number] 20:35:00 Test Item Value Reference Range Comments LACTATE DEHYDROGENASE FLUID (BEAKER) 234 U/L Light's criteria identifies (test pwmt=246) effusions if one or more are pre Absence of reference range indicates that normals have not been defined.Assay performance has not been validated for this type of specimen.PROTEIN, BODY [id number] 20:35:00 Test Item Value Reference Range Comments PROTEIN FLUID (BEAKER) (test 3.6 g/dL Light's criteria identifies asgm=977) effusions if one or more are pre Absence of reference range indicates that normals have not been defined.Assay performance has not been validated for this type of specimen.POCT-GLUCOSE [id number] 17:21:00 Test Item Value Reference Range Comments POC-GLUCOSE METER (BEAKER) 134 mg/dL 70-110 TESTED AT [address] (test aegs=4976) [facility] [address] U/S, [id number] 17:19:00Laterality?->RightReason for exam:-> diagnsotic and therapeuticFINAL REPORT [...] After the area is anesthetized, a 4 Amharic catheter is advanced into the pleural space. [...] Peters Verified Date/Time: 09/27/2017 17:19:37 Reading Location: [place] [id number] Ultrasound Reading Room RAD, CHEST, 1 VIEW, NON [id number] 16:21: 00Reason for exam:->Post Thoracentesis U/S room 3 U/S Room 3 Should this be performed at the bedside?->YesFINAL REPORT AP chest HISTORY: Thoracentesis COMPARISON: 09/27/2017 IMPRESSION:Intact skeleton. Cardiac silhouette mildly enlarged. Mild interstitial prominence, similar to previous. Right effusion appears decreased. No pneumothorax. Signed: Tari Lea Verified Date/Time: 09/27/2017 16:21:56 Reading Location: [facility] Mammo Reading Room Electronically signed by: TARI LEA M.D. on 2017 04:21 PMRAD, CHEST, 1 VIEW, NON [id number] 13:43:00Reason for exam:-&gt ;overloadShould this be performed at the bedside?->YesFINAL REPORT Chest one view compared to September 25 Discussion: Cardiac prominence , pulmonary congestion, and small right base effusion are unchanged. No pneumothorax. Signed: Austyn Apodacaeport Verified Date/Time: 09/27/2017 13: 43:29 Reading Location: [facility] C013W Consult Reading Room POCT-GLUCOSE [id number] 12:32:00 Test Item Value Reference Range Comments POC-GLUCOSE METER (BEAKER) 181 mg/dL 70-110 TESTED AT [address] (test yzls=7789) [place] [address] VITAMIN B12 AND [id number] 08:57:00 Test Item Value Reference Range Comments VITAMIN B12 (BEAKER) (test oddy=697) > pg/mL 213-816 FOLATE (BEAKER) (test syma=727) 13.3 ng/mL >=7.0 SPIN/CONCENTRATION [id number] 08:48:00 Test Item Value Reference Range Comments CONCENTRATION CHARGED (BEAKER) (test hevy=2102) Done POCT-GLUCOSE [id number] 07:58:00 Test Item Value Reference Range Comments POC-GLUCOSE METER (BEAKER) 155 mg/dL 70-110 TESTED AT [address] (test nwuh=7307) [place] [address] BASIC METABOLIC [id number] 06:35:00 Test Item Value Reference Range Comments SODIUM (BEAKER) (test 134 meq/L 136-145 ixim=762) POTASSIUM (BEAKER) (test 4.5 meq/L 3.5-5.1 zgwy=228) CHLORIDE (BEAKER) (test 107 meq/L 98-107 gvak=650) CO2 (BEAKER) (test 18 meq/L 22-29 gwmd=128) BLOOD UREA NITROGEN 45 mg/dL 7-21 (BEAKER) (test stox=389) CREATININE (BEAKER) (test 3.29 mg/dL 0.57-1.25 uqlf=101) GLUCOSE RANDOM (BEAKER) 149 mg/dL 70-105 (test emtq=407) CALCIUM (BEAKER) (test 9.4 mg/dL 8.4-10.2 pqls=993) EGFR (BEAKER) (test 14 mL/min/1.73 sq m ESTIMATED GFR IS NOT yjqm=2430) ACCURATE CREATININE CLEARANCE IN PREDICTING GLOMERULAR FILTRATION RATE. ESTIMATED GFR IS NOT APPLICABLE FOR DIALYSIS PATIENTS. [id number] 06:34:00 Test Item Value Reference Range Comments MAGNESIUM (BEAKER) (test jjmd=220) 1.6 mg/dL 1.6-2.6 POCT-GLUCOSE [id number] 21:34:00 Test Item Value Reference Range Comments POC-GLUCOSE METER (BEAKER) 172 mg/dL 70-110 TESTED AT [address] (test vgve=1385) [facility] [address] POCT-GLUCOSE [id number] 18:44:00 Test Item Value Reference Range Comments POC-GLUCOSE METER (BEAKER) 179 mg/dL 70-110 TESTED AT [address] (test uakm=1495) [place] [id number] POCT-GLUCOSE [id number] 14:01:00 Test Item Value Reference Range Comments POC-GLUCOSE METER (BEAKER) 176 mg/dL 70-110 TESTED AT [address] (test afwj=9377) [facility] [address] LACTATE DEHYDROGENASE (LDH)2017-09-26 12:06:00 Test Item Value Reference Range Comments LACTATE DEHYDROGENASE (BEAKER) (test pgdu=251) 309 U/L 125-220 PROTEIN, [id number] 12:04:00 Test Item Value Reference Range Comments TOTAL PROTEIN (BEAKER) (test eblk=696) 6.1 gm/dL 6.0-8.3 [id number] 11:43:00 Test Item Value Reference Range Comments PROTIME (BEAKER) (test ayed=012) 14.5 seconds 11.7-14.7 INR (BEAKER) (test zfzt=451) 1.1 <=5.9 PARTIAL THROMBOPLASTIN TIME (BEAKER) (test 39.2 seconds 22.5-36.0 oggm=957) RECOMMENDED COUMADIN/WARFARIN INR THERAPY RANGESSTANDARD DOSE: 2.0 - 3.0 Includes: PROPHYLAXIS forvenous thrombosis, systemic embolization; TREATMENT for venous thrombosis and/or pulmonary embolus.HIGH RISK: Target INR is 2.5-3.5 for patients with mechanical heart valves.PLATELET [id number] 11:31:00 Test Item Value Reference Range Comments PLATELET COUNT (BEAKER) (test nicb=341) 501 K/CU MM 150-450 POCT-GLUCOSE [id number] 08:42:00 Test Item Value Reference Range Comments POC-GLUCOSE METER (BEAKER) 146 mg/dL 70-110 TESTED AT [address] (test fbgr=1189) [place] [address] BASIC METABOLIC [id number] 05:39:00 Test Item Value Reference Range Comments SODIUM (BEAKER) (test 137 meq/L 136-145 sveq=104) POTASSIUM (BEAKER) (test 4.7 meq/L 3.5-5.1 bwet=387) CHLORIDE (BEAKER) (test 109 meq/L 98-107 yqsa=411) CO2 (BEAKER) (test 20 meq/L 22-29 ellj=789) BLOOD UREA NITROGEN 43 mg/dL 7-21 (BEAKER) (test bqgz=728) CREATININE (BEAKER) (test 3.09 mg/dL 0.57-1.25 ttmn=838) GLUCOSE RANDOM (BEAKER) 160 mg/dL 70-105 (test xkvp=749) CALCIUM (BEAKER) (test 9.6 mg/dL 8.4-10.2 dyps=698) EGFR (BEAKER) (test 15 mL/min/1.73 sq m ESTIMATED GFR IS NOT zcsi=7327) ACCURATE CREATININE CLEARANCE IN PREDICTING GLOMERULAR FILTRATION RATE. ESTIMATED GFR IS NOT APPLICABLE FOR DIALYSIS PATIENTS. [id number] 05:38:00 Test Item Value Reference Range Comments MAGNESIUM (BEAKER) (test xxjf=774) 1.9 mg/dL 1.6-2.6 POCT-GLUCOSE [id number] 21:13:00 Test Item Value Reference Range Comments POC-GLUCOSE METER (BEAKER) 241 mg/dL 70-110 TESTED AT [address] (test vfhz=8242) [facility] [address] RAD, CHEST, 2 [id number] 19:38:00Reason for exam:->coughFINAL REPORT Examination: Two view [...] MDReport Verified Date/Time: 2017 19:38:01 Reading Location: [address] Reading Room POCT- GLUCOSE [id number] 17:23:00 Test Item Value Reference Range Comments POC-GLUCOSE METER (BEAKER) 190 mg/dL 70-110 TESTED AT [address] (test bgge=6180) [place] [id number] POCT-GLUCOSE [id number] 12:22:00 Test Item Value Reference Range Comments POC-GLUCOSE METER (BEAKER) 239 mg/dL 70-110 TESTED AT [address] (test hrmv=3950) [place] [address] BLOOD [id number] 10:00:00 Test Item Value Reference Range Comments CULTURE (BEAKER) (test kxqt=6055) No growth in 5 days BLOOD [id number] 10:00:00 Test Item Value Reference Range Comments CULTURE (BEAKER) (test ebzf=2188) No growth in 5 days POCT-GLUCOSE [id number] 08:02:00 Test Item Value Reference Range Comments POC-GLUCOSE METER (BEAKER) 196 mg/dL 70-110 TESTED AT [address] (test nijp=6639) [place] [address] [id number] 07:15:00 Test Item Value Reference Range Comments MAGNESIUM (BEAKER) (test fjmj=510) 1.8 mg/dL 1.6-2.6 BASIC METABOLIC [id number] 07:15:00 Test Item Value Reference Range Comments SODIUM (BEAKER) (test 136 meq/L 136-145 tfzq=659) POTASSIUM (BEAKER) (test 4.4 meq/L 3.5-5.1 btzr=511) CHLORIDE (BEAKER) (test 109 meq/L 98-107 pney=997) CO2 (BEAKER) (test 19 meq/L 22-29 lxud=826) BLOOD UREA NITROGEN 44 mg/dL 7-21 (BEAKER) (test qspo=484) CREATININE (BEAKER) (test 3.16 mg/dL 0.57-1.25 yqhk=850) GLUCOSE RANDOM (BEAKER) 197 mg/dL 70-105 (test cvqs=286) CALCIUM (BEAKER) (test 9.3 mg/dL 8.4-10.2 nljv=383) EGFR (BEAKER) (test 15 mL/min/1.73 sq m ESTIMATED GFR IS NOT kwgb=6914) ACCURATE CREATININE CLEARANCE IN PREDICTING GLOMERULAR FILTRATION RATE. ESTIMATED GFR IS NOT APPLICABLE FOR DIALYSIS PATIENTS. POCT-GLUCOSE [id number] 22:03:00 Test Item Value Reference Range Comments POC-GLUCOSE METER (BEAKER) 286 mg/dL 70-110 TESTED AT [address] (test yytk=9881) [facility] [address] POCT-GLUCOSE [id number] 21:21:00 Test Item Value Reference Range Comments POC-GLUCOSE METER (BEAKER) 294 mg/dL 70-110 TESTED AT [address] (test lvng=8431) [facility] [address] POCT-GLUCOSE [id number] 17:10:00 Test Item Value Reference Range Comments POC-GLUCOSE METER (BEAKER) 212 mg/dL 70-110 TESTED AT [address] (test kphz=9221) [facility] [address] PROTEIN, RANDOM [id number] 17:00:00 Test Item Value Reference Range Comments PROTEIN, URINE (BEAKER) (test ojvh=8438) 154 mg/dL 0-14 CREATININE, RANDOM [id number] 16:59:00 Test Item Value Reference Range Comments CREATININE URINE (BEAKER) (test xlhm=732) 88.8 mg/dL Reference Range: No NormalsPET, CARDIAC PERFUSION MULTIPLE STUDIES, REST AND [id number] 16:36:00Reason for exam:->chest pain, hypokinesis on echoFINAL REPORT PROCEDURE: Rest/Stress MYOCARDIAL PERFUSION PET with regadenoson\\XA9\\ CPT CODE: 16018 INDICATION: Chest pain, hypokinesis on echo HISTORY: [...] tracer distribution is normal. 6. No previous [facility] study for comparison. NONINVASIVE RISK STRATIFICATION: The above findings are considered low risk based on the following criteria: 1)Normal or small myocardial perfusion defect at rest or with stress(JACC. 2012;59(9):857-81.) Signed: Selvin Braswell Verified Date/Time: 09/24/2017 16:36:36 POCT- GLUCOSE [id number] 10:53:00 Test Item Value Reference Range Comments POC-GLUCOSE METER (BEAKER) 158 mg/dL 70-110 TESTED AT [facility] [address] (test dcpp=7071) [facility] [address] POCT-GLUCOSE [id number] 07:31:00 Test Item Value Reference Range Comments POC-GLUCOSE METER (BEAKER) 142 mg/dL 70-110 TESTED AT [facility] [address] (test vswx=5512) [facility] [address] BASIC METABOLIC [id number] 05:57:00 Test Item Value Reference Range Comments SODIUM (BEAKER) (test 138 meq/L 136-145 azri=216) POTASSIUM (BEAKER) (test 4.3 meq/L 3.5-5.1 uyow=844) CHLORIDE (BEAKER) (test 110 meq/L 98-107 pcdz=483) CO2 (BEAKER) (test 19 meq/L 22-29 tbir=165) BLOOD UREA NITROGEN 42 mg/dL 7-21 (BEAKER) (test epcn=475) CREATININE (BEAKER) (test 3.58 mg/dL 0.57-1.25 hlqj=537) GLUCOSE RANDOM (BEAKER) 139 mg/dL 70-105 (test cavn=660) CALCIUM (BEAKER) (test 9.4 mg/dL 8.4-10.2 otkk=280) EGFR (BEAKER) (test 13 mL/min/1.73 sq m ESTIMATED GFR IS NOT fqnt=9518) ACCURATE CREATININE CLEARANCE IN PREDICTING GLOMERULAR FILTRATION RATE. ESTIMATED GFR IS NOT APPLICABLE FOR DIALYSIS PATIENTS. [id number] 05:13:00 Test Item Value Reference Range Comments MAGNESIUM (BEAKER) (test qans=149) 1.9 mg/dL 1.6-2.6 VANCOMYCIN LEVEL, [id number] 05:10:00 Test Item Value Reference Range Comments VANCOMYCIN RANDOM (BEAKER) (test nxsl=316) 16.6 ug/mL Reference Range: No NormalsU/S, RENAL, [id number] 22:13:00Reason for exam:->Elevated creatinineFINAL REPORT U/S, RENAL, [...] MDReport Verified Date/Time: 09/23/2017 22:13:52 Reading Location: [address] Ortho Consult Reading Room POCT-GLUCOSE [id number] 21:25:00 Test Item Value Reference Range Comments POC-GLUCOSE METER (BEAKER) 220 mg/dL 70-110 TESTED AT [address] (test uqao=9457) [place] [address] POCT-GLUCOSE [id number] 17:02:00 Test Item Value Reference Range Comments POC-GLUCOSE METER (BEAKER) 223 mg/dL 70-110 TESTED AT [address] (test vkxt=4375) [place] [address] BRONCHIAL CULTURE + GRAM [id number] 15:04:00 Test Item Value Reference Range Comments CULTURE (BEAKER) (test yhdt=6521) No growth GRAM STAIN RESULT (BEAKER) (test <1+ WBCs flwl=4994) GRAM STAIN RESULT (BEAKER) (test No organisms seen xsvn=67905) URINALYSIS W/ REFLEX URINE [id number] 13:20:00 Test Item Value Reference Range Comments COLOR (BEAKER) (test cnnq=717) Yellow CLARITY (BEAKER) (test xltm=022) Hazy SPECIFIC GRAVITY UA (BEAKER) (test vrsr=282) 1.010 1.001-1.035 PH UA (BEAKER) (test nqnt=263) 5.5 5.0-8.0 PROTEIN UA (BEAKER) (test uguj=361) 100 mg/dL Negative GLUCOSE UA (BEAKER) (test ftia=739) 30 mg/dL Negative KETONES UA (BEAKER) (test evvd=114) Negative Negative BILIRUBIN UA (BEAKER) (test kjnr=648) Negative Negative BLOOD UA (BEAKER) (test ofth=678) Negative Negative NITRITE UA (BEAKER) (test kxey=213) Negative Negative LEUKOCYTE ESTERASE UA (BEAKER) (test rlma=161) Negative Negative UROBILINOGEN UA (BEAKER) (test hxyt=594) 0.2 mg/dL 0.2-1.0 RBC UA (BEAKER) (test nnlq=023) 0 /HPF WBC UA (BEAKER) (test ffws=302) 1 /HPF BACTERIA (BEAKER) (test gzqa=722) Occasional MUCUS (BEAKER) (test fwvd=9536) Rare SQUAMOUS EPITHELIAL (BEAKER) (test pfax=005) 11 /HPF YEAST (BEAKER) (test jnnd=4717) Rare SOURCE(BEAKER) (test ttkq=3470) CREATININE, RANDOM [id number] 13:13:00 Test Item Value Reference Range Comments CREATININE URINE (BEAKER) (test ovpo=523) 101.2 mg/dL Reference Range: No NormalsSODIUM, RANDOM [id number] 13:13:00 Test Item Value Reference Range Comments SODIUM URINE (BEAKER) (test http=956) 31 meq/L Reference Range: No NormalsPOCT-GLUCOSE [id number] 11:37:00 Test Item Value Reference Range Comments POC-GLUCOSE METER (BEAKER) 342 mg/dL 70-110 TESTED AT [facility] [address] (test uvur=7566) [facility] [address] VANCOMYCIN LEVEL, [id number] 08:10:00 Test Item Value Reference Range Comments VANCOMYCIN RANDOM (BEAKER) (test rbbt=119) 20.6 ug/mL Reference Range: No NormalsBASIC METABOLIC [id number] 08:05:00 Test Item Value Reference Range Comments SODIUM (BEAKER) (test 140 meq/L 136-145 djbs=156) POTASSIUM (BEAKER) (test 4.2 meq/L 3.5-5.1 wjvw=300) CHLORIDE (BEAKER) (test 109 meq/L 98-107 oest=181) CO2 (BEAKER) (test 18 meq/L 22-29 qeel=945) BLOOD UREA NITROGEN 51 mg/dL 7-21 (BEAKER) (test dgsw=642) CREATININE (BEAKER) (test 3.45 mg/dL 0.57-1.25 ypmw=788) GLUCOSE RANDOM (BEAKER) 159 mg/dL 70-105 (test qvxw=664) CALCIUM (BEAKER) (test 9.4 mg/dL 8.4-10.2 xvbf=175) EGFR (BEAKER) (test 14 mL/min/1.73 sq m ESTIMATED GFR IS NOT qkii=0239) ACCURATE CREATININE CLEARANCE IN PREDICTING GLOMERULAR FILTRATION RATE. ESTIMATED GFR IS NOT APPLICABLE FOR DIALYSIS PATIENTS. CBC W/PLT COUNT & AUTO [id number] 07:43:00 Test Item Value Reference Range Comments WHITE BLOOD CELL COUNT (BEAKER) (test rkmo=280) 12.7 K/ L 3.5-10.5 RED BLOOD CELL COUNT (BEAKER) (test hwtw=084) 2.61 M/ L 3.93-5.22 HEMOGLOBIN (BEAKER) (test rmid=684) 7.9 GM/DL 11.2-15.7 HEMATOCRIT (BEAKER) (test ccei=855) 24.7 % 34.1-44.9 MEAN CORPUSCULAR VOLUME (BEAKER) (test mrfw=398) 94.6 fL 79.4-94.8 MEAN CORPUSCULAR HEMOGLOBIN (BEAKER) (test 30.3 pg 25.6-32.2 wnwp=103) MEAN CORPUSCULAR HEMOGLOBIN CONC (BEAKER) (test 32.0 GM/DL 32.2-35.5 vnzi=421) RED CELL DISTRIBUTION WIDTH (BEAKER) (test 14.2 % 11.7-14.4 gdmf=538) PLATELET COUNT (BEAKER) (test zhok=696) 466 K/CU MM 150-450 MEAN PLATELET VOLUME (BEAKER) (test giqv=536) 10.6 fL 9.4-12.3 NUCLEATED RED BLOOD CELLS (BEAKER) (test 0 /100 WBC 0-0 ydol=539) NEUTROPHILS RELATIVE PERCENT (BEAKER) (test 64 % peyv=693) LYMPHOCYTES RELATIVE PERCENT (BEAKER) (test 17 % hzuu=890) MONOCYTES RELATIVE PERCENT (BEAKER) (test 11 % luaz=136) EOSINOPHILS RELATIVE PERCENT (BEAKER) (test 7 % xcam=804) BASOPHILS RELATIVE PERCENT (BEAKER) (test 0 % tysy=091) NEUTROPHILS ABSOLUTE COUNT (BEAKER) (test 8.16 K/ L 1.56-6.13 mlwj=627) LYMPHOCYTES ABSOLUTE COUNT (BEAKER) (test 2.14 K/ L 1.18-3.74 kffu=196) MONOCYTES ABSOLUTE COUNT (BEAKER) (test 1.35 K/ L 0.24-0.36 vctt=334) EOSINOPHILS ABSOLUTE COUNT (BEAKER) (test 0.83 K/ L 0.04-0.36 uvzi=795) BASOPHILS ABSOLUTE COUNT (BEAKER) (test 0.04 K/ L 0.01-0.08 epvi=642) IMMATURE GRANULOCYTES-RELATIVE PERCENT (BEAKER) 2 % 0-1 (test afiv=8539) [id number] 07:35:00 Test Item Value Reference Range Comments MAGNESIUM (BEAKER) (test zyoh=963) 1.9 mg/dL 1.6-2.6 POCT-GLUCOSE [id number] 07:33:00 Test Item Value Reference Range Comments POC-GLUCOSE METER (BEAKER) 196 mg/dL 70-110 TESTED AT [address] (test gahv=2865) [place] [address] POCT-GLUCOSE [id number] 21:15:00 Test Item Value Reference Range Comments POC-GLUCOSE METER (BEAKER) 243 mg/dL 70-110 TESTED AT [address] (test zizz=7809) [place] [address] POCT-GLUCOSE [id number] 17:44:00 Test Item Value Reference Range Comments POC-GLUCOSE METER (BEAKER) 218 mg/dL 70-110 TESTED AT [address] (test tkdz=3892) [place] [address] CMV PCR, [id number] 17:31:00 Test Item Value Reference Range Comments CMV VIRAL LOAD - NEGATIVE Negative or below the linear (BEAKER) (test njea=1037) range of the assay (<375 copies/mL) Cytomegalovirus [...] and its performance characteristics determined by the [facility] Pathology Department, Section of Molecular Pathology. It has not been cleared or approved by the U.S. Food and Drug Administration (FDA), since FDA approval is not required for clinical use of the test. Validation was done as required by The Clinical Laboratory Improvement Amendments of 1988.POCT-GLUCOSE [id number] 12:39:00 Test Item Value Reference Range Comments POC-GLUCOSE METER (BEAKER) 210 mg/dL 70-110 TESTED AT [address] (test zrdm=6602) [place] [id number] POCT-GLUCOSE [id number] 07:41:00 Test Item Value Reference Range Comments POC-GLUCOSE METER (BEAKER) 151 mg/dL 70-110 TESTED AT [place] [id number] (test amar=8328) [place] [id number] BASIC METABOLIC [id number] 05:54:00 Test Item Value Reference Range Comments SODIUM (BEAKER) (test 140 meq/L 136-145 ckuw=721) POTASSIUM (BEAKER) (test 4.4 meq/L 3.5-5.1 hvro=417) CHLORIDE (BEAKER) (test 109 meq/L 98-107 kdkr=121) CO2 (BEAKER) (test 20 meq/L 22-29 ihpl=949) BLOOD UREA NITROGEN 49 mg/dL 7-21 (BEAKER) (test arpd=075) CREATININE (BEAKER) (test 3.42 mg/dL 0.57-1.25 lyvt=468) GLUCOSE RANDOM (BEAKER) 140 mg/dL 70-105 (test kxci=735) CALCIUM (BEAKER) (test 9.4 mg/dL 8.4-10.2 gsrs=974) EGFR (BEAKER) (test 14 mL/min/1.73 sq m ESTIMATED GFR IS NOT data=1964) ACCURATE CREATININE CLEARANCE IN PREDICTING GLOMERULAR FILTRATION RATE. ESTIMATED GFR IS NOT APPLICABLE FOR DIALYSIS PATIENTS. VANCOMYCIN LEVEL, [id number] 05:54:00 Test Item Value Reference Range Comments VANCOMYCIN RANDOM (BEAKER) (test wmib=702) 30.7 ug/mL Reference Range: No [id number] 05:47:00 Test Item Value Reference Range Comments MAGNESIUM (BEAKER) (test pggg=453) 1.8 mg/dL 1.6-2.6 CBC W/PLT COUNT & AUTO [id number] 05:15:00 Test Item Value Reference Range Comments WHITE BLOOD CELL COUNT (BEAKER) (test zkvg=038) 12.2 K/ L 3.5-10.5 RED BLOOD CELL COUNT (BEAKER) (test kskp=967) 2.44 M/ L 3.93-5.22 HEMOGLOBIN (BEAKER) (test eshl=090) 7.7 GM/DL 11.2-15.7 HEMATOCRIT (BEAKER) (test nxwp=395) 23.2 % 34.1-44.9 MEAN CORPUSCULAR VOLUME (BEAKER) (test ngou=877) 95.1 fL 79.4-94.8 MEAN CORPUSCULAR HEMOGLOBIN (BEAKER) (test 31.6 pg 25.6-32.2 jueb=541) MEAN CORPUSCULAR HEMOGLOBIN CONC (BEAKER) (test 33.2 GM/DL 32.2-35.5 bizu=564) RED CELL DISTRIBUTION WIDTH (BEAKER) (test 14.1 % 11.7-14.4 xqvj=667) PLATELET COUNT (BEAKER) (test vdtn=040) 396 K/CU MM 150-450 MEAN PLATELET VOLUME (BEAKER) (test mpdd=746) 9.9 fL 9.4-12.3 NUCLEATED RED BLOOD CELLS (BEAKER) (test 0 /100 WBC 0-0 azjd=160) NEUTROPHILS RELATIVE PERCENT (BEAKER) (test 63 % gmtn=364) LYMPHOCYTES RELATIVE PERCENT (BEAKER) (test 16 % lire=497) MONOCYTES RELATIVE PERCENT (BEAKER) (test 11 % idwa=108) EOSINOPHILS RELATIVE PERCENT (BEAKER) (test 7 % wzqz=080) BASOPHILS RELATIVE PERCENT (BEAKER) (test 0 % irhq=555) NEUTROPHILS ABSOLUTE COUNT (BEAKER) (test 7.70 K/ L 1.56-6.13 naln=306) LYMPHOCYTES ABSOLUTE COUNT (BEAKER) (test 1.99 K/ L 1.18-3.74 asyy=706) MONOCYTES ABSOLUTE COUNT (BEAKER) (test 1.34 K/ L 0.24-0.36 isku=415) EOSINOPHILS ABSOLUTE COUNT (BEAKER) (test 0.80 K/ L 0.04-0.36 mzrt=785) BASOPHILS ABSOLUTE COUNT (BEAKER) (test 0.05 K/ L 0.01-0.08 fvgv=731) IMMATURE GRANULOCYTES-RELATIVE PERCENT (BEAKER) 3 % 0-1 (test gtyg=6341) POCT-GLUCOSE [id number] 21:10:00 Test Item Value Reference Range Comments POC-GLUCOSE METER (BEAKER) 209 mg/dL 70-110 TESTED AT [address] (test xusm=0224) [place] [address] POCT-GLUCOSE [id number] 16:57:00 Test Item Value Reference Range Comments POC-GLUCOSE METER (BEAKER) 90 mg/dL 70-110 TESTED AT [address] (test mnsz=9496) [place] [id number] POCT-GLUCOSE [id number] 12:39:00 Test Item Value Reference Range Comments POC-GLUCOSE METER (BEAKER) 63 mg/dL 70-110 TESTED AT [address] (test mjnq=3748) [place] [id number] BLOOD GAS, [id number] 11:19:00 Test Item Value Reference Range Comments PH ARTERIAL (BEAKER) (test zuuq=771) 7.43 7.35-7.45 PCO2 ARTERIAL (BEAKER) (test uteq=975) 32 mmHg 35-45 PO2 ARTERIAL (BEAKER) (test vggv=263) 226 mmHg 80-90 O2 SATURATION ARTERIAL (BEAKER) (test espw=814) 99.5 % 96.0-97.0 HCO3 ARTERIAL (BEAKER) (test oyme=426) 21 mmol/L 21-29 BASE EXCESS ARTERIAL (BEAKER) (test wxkn=828) -3.3 mmol/L -2.0-3.0 PATIENT TEMPERATURE (BEAKER) (test ygsh=4189) 36.9 C FIO2 (BEAKER) (test rljp=7702) 60.0 % RAD, CHEST, 1 VIEW, NON [id number] 09:41:00Reason for exam:-> intubationShould this be performed [...] MDReport Verified Date/Time: 09/21/2017 09:41:46 Reading Location: [facility] Radiology Reading Room POCT-GLUCOSE [id number] 08:45:00 Test Item Value Reference Range Comments POC-GLUCOSE METER (BEAKER) 72 mg/dL 70-110 TESTED AT [facility] [address] (test bztk=2953) [facility] [address] [id number] 06:31:00 Test Item Value Reference Range Comments MAGNESIUM (BEAKER) (test lqcq=256) 2.0 mg/dL 1.6-2.6 BASIC METABOLIC [id number] 06:31:00 Test Item Value Reference Range Comments SODIUM (BEAKER) (test 139 meq/L 136-145 pqsr=395) POTASSIUM (BEAKER) (test 4.6 meq/L 3.5-5.1 abfh=590) CHLORIDE (BEAKER) (test 109 meq/L 98-107 qpwg=590) CO2 (BEAKER) (test 19 meq/L 22-29 khou=549) BLOOD UREA NITROGEN 44 mg/dL 7-21 (BEAKER) (test cmtf=233) CREATININE (BEAKER) (test 3.07 mg/dL 0.57-1.25 hmjm=893) GLUCOSE RANDOM (BEAKER) 83 mg/dL 70-105 (test btth=325) CALCIUM (BEAKER) (test 9.5 mg/dL 8.4-10.2 iwpi=003) EGFR (BEAKER) (test 15 mL/min/1.73 sq m ESTIMATED GFR IS NOT mtqv=1725) ACCURATE CREATININE CLEARANCE IN PREDICTING GLOMERULAR FILTRATION RATE. ESTIMATED GFR IS NOT APPLICABLE FOR DIALYSIS PATIENTS. CBC W/PLT COUNT & AUTO [id number] 05:56:00 Test Item Value Reference Range Comments WHITE BLOOD CELL COUNT (BEAKER) (test puat=942) 12.8 K/ L 3.5-10.5 RED BLOOD CELL COUNT (BEAKER) (test pocp=755) 2.67 M/ L 3.93-5.22 HEMOGLOBIN (BEAKER) (test ednc=589) 8.3 GM/DL 11.2-15.7 HEMATOCRIT (BEAKER) (test npos=399) 25.4 % 34.1-44.9 MEAN CORPUSCULAR VOLUME (BEAKER) (test imyl=757) 95.1 fL 79.4-94.8 MEAN CORPUSCULAR HEMOGLOBIN (BEAKER) (test 31.1 pg 25.6-32.2 kwsn=310) MEAN CORPUSCULAR HEMOGLOBIN CONC (BEAKER) (test 32.7 GM/DL 32.2-35.5 neom=283) RED CELL DISTRIBUTION WIDTH (BEAKER) (test 14.3 % 11.7-14.4 plck=948) PLATELET COUNT (BEAKER) (test pmef=938) 394 K/CU MM 150-450 MEAN PLATELET VOLUME (BEAKER) (test nzhi=577) 10.3 fL 9.4-12.3 NUCLEATED RED BLOOD CELLS (BEAKER) (test 0 /100 WBC 0-0 wmam=339) NEUTROPHILS RELATIVE PERCENT (BEAKER) (test 63 % wzkp=765) LYMPHOCYTES RELATIVE PERCENT (BEAKER) (test 16 % haze=968) MONOCYTES RELATIVE PERCENT (BEAKER) (test 11 % pnmh=623) EOSINOPHILS RELATIVE PERCENT (BEAKER) (test 6 % skqh=285) BASOPHILS RELATIVE PERCENT (BEAKER) (test 0 % jgdc=126) NEUTROPHILS ABSOLUTE COUNT (BEAKER) (test 8.06 K/ L 1.56-6.13 bgfk=451) LYMPHOCYTES ABSOLUTE COUNT (BEAKER) (test 2.00 K/ L 1.18-3.74 zuow=916) MONOCYTES ABSOLUTE COUNT (BEAKER) (test 1.43 K/ L 0.24-0.36 xmfw=794) EOSINOPHILS ABSOLUTE COUNT (BEAKER) (test 0.80 K/ L 0.04-0.36 khhf=395) BASOPHILS ABSOLUTE COUNT (BEAKER) (test 0.05 K/ L 0.01-0.08 brwt=636) IMMATURE GRANULOCYTES-RELATIVE PERCENT (BEAKER) 4 % 0-1 (test cokh=5166) RAD, CHEST, 1 VIEW, NON [id number] 03:49:00Reason for exam:->PNAShould this be performed at [...] pneumothorax or acute bony abnormality. Signed: [facility] Verified Date/Time: 09/21/2017 03:49:47 Reading Location: [address] Reading Room POCT-GLUCOSE [id number] 22:14:00 Test Item Value Reference Range Comments POC-GLUCOSE METER (BEAKER) 173 mg/dL 70-110 TESTED AT [address] (test rlix=1700) [place] [address] LEGIONELLA ANTIGEN, [id number] 19:27:00 Test Item Value Reference Range Comments L. PNEUMOPHILA SEROGP 1 Negative - see Negative for L. UR AG (BEAKER) (test comment pneumophila serogroup 1 ebxz=6597) antigen, suggesting no recent or current infection with this serogroup. Legionellosis cannot be ruled out since other serogroups and species may cause disease. POCT-GLUCOSE [id number] 18:01:00 Test Item Value Reference Range Comments POC-GLUCOSE METER (BEAKER) 237 mg/dL 70-110 TESTED AT [address] (test lrkb=5608) [place] [id number] HEMOGLOBIN [id number] 14:19:00 Test Item Value Reference Range Comments HEMOGLOBIN A1C (BEAKER) (test lktz=061) 6.8 % 4.3-6.1 RESPIRATORY PANEL [id number] 13:56:00 Test Item Value Reference Range Comments HUMAN METAPNEUMOVIRUS (BEAKER) (test Not detected Not detected, Inconclusive ikta=6476) RHINOVIRUS (BEAKER) (test cbki=3890) Not detected Not detected, Inconclusive INFLUENZA A (BEAKER) (test Not detected Not detected, Inconclusive dgog=2507) INFLUENZA A SUBTYPE H1 (BEAKER) Not detected Not detected, Inconclusive (test rshh=6204) INFLUENZA A SUBTYPE H3 (BEAKER) Not detected Not detected, Inconclusive (test focd=3313) INFLUENZA A SUBTYPE H1-2009 (BEAKER) Not detected Not detected, Inconclusive (test ijot=2697) INFLUENZA B (BEAKER) (test Not detected Not detected, Inconclusive nkkj=8352) RESPIRATORY SYNCYTIAL VIRUS (BEAKER) Not detected Not detected, Inconclusive (test zggw=8771) PARAINFLUENZA VIRUS 1 (BEAKER) (test Not detected Not detected, Inconclusive gixw=4103) PARAINFLUENZA VIRUS 2 (BEAKER) (test Not detected Not detected, Inconclusive ukij=4952) PARAINFLUENZA VIRUS 3 (BEAKER) (test Not detected Not detected, Inconclusive shsy=9455) PARAINFLUENZA VIRUS 4 (BEAKER) (test Not detected Not detected, Inconclusive tiil=7058) ADENOVIRUS (BEAKER) (test zxgt=8029) Not detected Not detected, Inconclusive CORONAVIRUS 229E (BEAKER) (test Not detected Not detected, Inconclusive qkwu=0636) CORONAVIRUS HKU1 (BEAKER) (test Not detected Not detected, Inconclusive snsy=1898) CORONAVIRUS NL63 (BEAKER) (test Not detected Not detected, Inconclusive sbgx=7561) CORONAVIRUS OC43 (BEAKER) (test Not detected Not detected, Inconclusive yhea=3904) BORDETELLA PERTUSSIS (BEAKER) (test Not detected Not detected, Inconclusive voys=7746) CHLAMYDOPHILA PNEUMONIAE (BEAKER) Not detected Not detected, Inconclusive (test xobu=5624) MYCOPLASMA PNEUMONIAE (BEAKER) (test Not detected Not detected, Inconclusive sslu=8244) [id number] 13:17:00 Test Item Value Reference Range Comments PROCALCITONIN (BEAKER) (test fshh=2016) 2.35 ng/mL <0.05 SEPSIS RISK (ng/mL)Low: 0.05-0.50Intermediate: 0.51-2.00High: & gt;=2.01POCT-GLUCOSE [id number] 12:03:00 Test Item Value Reference Range Comments POC-GLUCOSE METER (BEAKER) 126 mg/dL 70-110 TESTED AT [address] (test izni=5458) [place] [address] B-TYPE NATRIURETIC FACTOR (BNP)2017-09-20 11:15:00 Test Item Value Reference Range Comments B-TYPE NATRIURETIC PEPTIDE (BEAKER) (test yutu=576) 22 pg/mL 0-100 LACTIC ACID, VENOUS, WHOLE [id number] 11:05:00 Test Item Value Reference Range Comments LACTATE BLOOD VENOUS (2) (BEAKER) (test 0.5 mmol/L 0.5-2.2 lkxb=4625) Effective 01/27/2016: Units/Reference Range ChangeNew: 0.5-2.2 mmol/L Previous: 5 -20 mg/dLPOCT-GLUCOSE [id number] 10:09:00 Test Item Value Reference Range Comments POC-GLUCOSE METER (BEAKER) 104 mg/dL 70-110 TESTED AT [address] (test eayi=5686) [place] [address] STREP PNEUMONIAE [id number] 09:55:00 Test Item Value Reference Range Comments STREP PNEUMONIAE ANTIGEN Presumptive negative for Presumptive negative for (AKER) (test pneumococcal pneumonia - pneumococcal pneumonia - ynnv=5403) see comment see commen Presumptive negative for pneumococcal pneumonia, suggesting no current or recent pneumococcal infection. Infection due to S. pneumoniae cannot be ruled out since the antigen present in the sample may be below the detection limit of the test.CBC W/PLT COUNT & AUTO [id number] 09:42:00 Test Item Value Reference Range Comments WHITE BLOOD CELL COUNT (BEAKER) (test rnhx=688) 12.4 K/ L 3.5-10.5 RED BLOOD CELL COUNT (BEAKER) (test jyzh=426) 2.65 M/ L 3.93-5.22 HEMOGLOBIN (BEAKER) (test luxk=270) 8.2 GM/DL 11.2-15.7 HEMATOCRIT (BEAKER) (test tmnn=145) 25.3 % 34.1-44.9 MEAN CORPUSCULAR VOLUME (BEAKER) (test uytu=747) 95.5 fL 79.4-94.8 MEAN CORPUSCULAR HEMOGLOBIN (BEAKER) (test 30.9 pg 25.6-32.2 edrd=002) MEAN CORPUSCULAR HEMOGLOBIN CONC (BEAKER) (test 32.4 GM/DL 32.2-35.5 nzgu=170) RED CELL DISTRIBUTION WIDTH (BEAKER) (test 14.3 % 11.7-14.4 kwxz=030) PLATELET COUNT (BEAKER) (test fypx=784) 328 K/CU MM 150-450 MEAN PLATELET VOLUME (BEAKER) (test wxhb=864) 10.8 fL 9.4-12.3 NUCLEATED RED BLOOD CELLS (BEAKER) (test 0 /100 WBC 0-0 ydqo=830) IMMATURE GRANULOCYTES-RELATIVE PERCENT (BEAKER) 6 % 0-1 (test fztt=1677) (MANUAL DIFFERENTIAL)2017-09-20 09:42:00 Test Item Value Reference Range Comments NEUTROPHILS - REL (DIFF) (BEAKER) (test 54 % eqcy=9749) LYMPHOCYTES - REL (DIFF) (BEAKER) (test 13 % vbnx=4599) MONOCYTES - REL (DIFF) (BEAKER) (test wbwj=1468) 11 % EOSINOPHILS - REL (DIFF) (BEAKER) (test 6 % hsuo=9530) METAMYELOCYTES-REL (DIFF) (BEAKER) (test 3 % 0-0 pcmw=427) MYELOCYTES-REL (DIFF) (BEAKER) (test jyrf=7552) 2 % 0-0 BANDS - REL (DIFF) (BEAKER) (test kcuw=0092) 11 % 0-10 NEUTROPHILS - ABS (DIFF) (BEAKER) (test 6.70 K/ L 1.80-8.00 qlks=0540) LYMPHOCYTES - ABS (DIFF) (BEAKER) (test 1.61 K/ L 1.48-4.50 behw=6273) MONOCYTES - ABS (DIFF) (BEAKER) (test orqg=1239) 1.36 K/ L 0.00-1.30 EOSINOPHILS - ABS (DIFF) (BEAKER) (test 0.74 K/ L 0.00-0.50 bugj=9238) METAMYELOCTYES - ABS (DIFF) (BEAKER) (test 0.37 K/ L 0.00-0.00 mdyg=577) BANDS-ABS (DIFF) (BEAKER) (test bdlo=8063) 1.4 K/ L 0.0-0.8 MYELOCYTES-ABS (DIFF) (BEAKER) (test dylh=1688) 0.25 K/ L 0.00-0.00 TOTAL COUNTED (BEAKER) (test zwzp=4170) 100 BANDS + SEGMENTED NEUTROPHILS (BEAKER) (test 8.06 dabw=5686) WBC MORPHOLOGY (BEAKER) (test grjf=260) Normal PLT MORPHOLOGY (BEAKER) (test jkdp=456) Normal ANISOCYTOSIS (BEAKER) (test kjuf=485) 2+ moderate POIKILOCYTES (BEAKER) (test egcs=281) 2+ moderate POCT-GLUCOSE [id number] 08:34:00 Test Item Value Reference Range Comments POC-GLUCOSE METER (BEAKER) 55 mg/dL 70-110 Notified HONG LERMA/TESTED AT [facility] (test mgfr=0022) [address] [facility] [address] [id number] 04:42:00 Test Item Value Reference Range Comments FERRITIN (BEAKER) (test gkcw=300) 535 ng/mL 5-275 IRON, TIBC, % SAT. (WITHOUT FERRITIN)2017-09-20 04:22:00 Test Item Value Reference Range Comments IRON (BEAKER) (test pptb=194) 27 ug/dL 40-160 TOTAL IRON BINDING CAPACITY (BEAKER) (test 186 ug/dL 250-450 tksc=536) IRON % SATURATION (2) (BEAKER) (test xbfi=1890) 15 % 20-55 [id number] 03:41:00 Test Item Value Reference Range Comments MAGNESIUM (BEAKER) (test jspe=229) 1.8 mg/dL 1.6-2.6 [id number] 03:41:00 Test Item Value Reference Range Comments PHOSPHORUS (BEAKER) (test vbgq=244) 4.2 mg/dL 2.3-4.7 BASIC METABOLIC [id number] 03:32:00 Test Item Value Reference Range Comments SODIUM (BEAKER) (test 138 meq/L 136-145 sfcz=570) POTASSIUM (BEAKER) (test 4.3 meq/L 3.5-5.1 mwxd=973) CHLORIDE (BEAKER) (test 110 meq/L 98-107 wail=299) CO2 (BEAKER) (test 19 meq/L 22-29 jppj=108) BLOOD UREA NITROGEN 45 mg/dL 7-21 (BEAKER) (test zcta=773) CREATININE (BEAKER) (test 2.64 mg/dL 0.57-1.25 cmiy=256) GLUCOSE RANDOM (BEAKER) 116 mg/dL 70-105 (test hlnz=142) CALCIUM (BEAKER) (test 8.8 mg/dL 8.4-10.2 eikj=024) EGFR (BEAKER) (test 18 mL/min/1.73 sq m ESTIMATED GFR IS NOT oytw=2344) ACCURATE CREATININE CLEARANCE IN PREDICTING GLOMERULAR FILTRATION RATE. ESTIMATED GFR IS NOT APPLICABLE FOR DIALYSIS PATIENTS. CREATINE KINASE (CK), TOTAL AND [id number] 03:32:00 Test Item Value Reference Range Comments CREATINE KINASE TOTAL (BEAKER) (test mwlu=330) 76 U/L 29-200 CREATINE KINASE-MB (BEAKER) (test znfu=213) 1.9 ng/mL 0.0-6.6 CREATINE KINASE-MB INDEX (BEAKER) (test pfdz=015) 2.5 % CK-MB Reference Range:<6.7 Normal6.7-10.0 Borderline>10.0 AbnormalTROPONIN [id number] 03:32:00 Test Item Value Reference Range Comments TROPONIN I (BEAKER) (test wdwk=154) < ng/mL 0.00-0.03 Troponin I (TnI) levels [...] acidosis, acute neurological disease, and persistent tachyarrhythmia.POCT-GLUCOSE [id number] 01:15:00 Test Item Value Reference Range Comments POC-GLUCOSE METER (BEAKER) 157 mg/dL 70-110 TESTED AT [facility] [address] [place] [address] (test fwfa=7183) [facility] [address] RAD, CHEST, 1 VIEW, NON [id number] 00:10:00Reason for exam:->RLL PNAShould this be performed [...] MDReport Verified Date/Time: 09/20/2017 00:10:56 Reading Location: [address] Ortho Consult Reading Room
[2018-08-12 03:49] LABS: Absolute Lymphocytes (CBC) 1.3 K/uL (0.7-4.9); Absolute Monocytes 1.7 K/uL (0.1-1.3); Absolute Neutrophil 6.1 K/uL (1.8-8.0); Basophils % 0.5 % (0-1.3); Eosinophils % 6.4 % (0-4.4); Hematocrit 24.6 % (36.0-45.0); Lymphocytes % 13.4 % (15.3-44.8); MCH 33.7 pg (27.0-35.0); MCV 102.1 fL (80-100); MPV 9.7 fL (7.6-11.3); Monocytes % 17.1 % (3.3-12.3); RBC Red Blood Cell Count 2.41 M/uL (3.86-4.86)
[2018-08-12 04:10] LABS: ALT/SGPT 40 U/L (12-78); AST/SGOT 42 U/L (15-37); Albumin 2.3 g/dL (3.4-5.0); Alkaline Phosphatase 106 U/L (45-117); BUN Blood Urea Nitrogen 50 mg/dL (7-18); Bicarbonate 32 mmol/L (21-32); Bilirubin Direct 0.1 mg/dL (0-0.2); Bilirubin Total 0.4 mg/dL (0.2-1.0); Glucose Level 96 mg/dL (74-106); Magnesium 2.3 mg/dL (1.8-2.4); NT PRO-BNP 2477 pg/mL (<125); Potassium 3.1 mmol/L (3.5-5.1); Protein, Total 6.2 g/dL (6.4-8.2); Sodium Level 140 mmol/L (136-145); Troponin (Emerg Dept Use Only) < 0.02 ng/mL (0.0-0.045)
[2018-08-12 04:19] LABS: Protime INR 1.07
[2018-08-12] MEDS ORDERED: D50W 25 GM/50 ML SYRINGE IV ONE (04:20)
--- NOTE | 2018-08-12 04:39 | EDPHYS ---
Physician Documentation [facility] Name: Wendy Ziegler Age: 63 yrs Sex: Female : 1955 Arrival Date: 08/12/2018 Time: 02:45 Bed 8 Private MD: ED Physician Trav Kwan HPI: 08/12 03:31 This 63 yrs old Female presents to ER via EMS with complaints of Low Blood pkl Sugar. 03:31 The patient presents with decreased mental status. Onset: The symptoms/episode pkl began/occurred just prior to arrival, 1 hour(s) ago. Possible causes: low blood sugar, the patient uses insulin. Patient was admitted to this hospital earlier th is week for same complaints. Historical: - Allergies: 02:56 Bactrim; ao 02:56 Codeine; ao 02:56 Remicade; ao 02:56 victoza; ao - Home Meds: 02:56 Unable to obtain [Active]; ao - PMHx: 02:56 chronic kidney disease; COPD; Diabetes - IDDM; Hyperlipidemia; Hypertension; Pneumonia; ao Rheumatoid Arthritis; Sleep Apnea; - PSHx: 02:56 None; ao - Immunization history:: Adult Immunizations up to date. - Social history:: Smoking status: Patient/guardian denies using tobacco, Patient/guardian denies using alcohol, street drugs. - Ebola Screening: : Patient negative for fever greater than or equal to 101.5 degrees Fahrenheit, and additional compatible Ebola Virus Disease symptoms Patient denies exposure to infectious person Patient denies travel to an Ebola-affected area in the 21 days before illness onset. ROS: 03:31 Eyes: Negative for injury, pain, redness, and discharge, ENT: Negative for injury, pkl pain, and discharge, Neck: Negative for injury, pain, and swelling, Cardiovascular: Negative for chest pain, palpitations, and edema, Respiratory: Negative for shortness of breath, cough, wheezing, and pleuritic chest pain, Abdomen/GI: Negative for abdominal pain, nausea, vomiting, diarrhea, and constipation, Back: Negative for injury and pain, : Negative for injury, bleeding, discharge, and swelling, MS/Extremity: Negative for injury and deformity, Skin: Negative for injury, rash, and discoloration. 03:31 Neuro: Positive for altered mental status. Exam: 03:31 Head/Face: Normocephalic, atraumatic. Eyes: Pupils equal round and reactive to light, pkl extra-ocular motions intact. Lids and lashes normal. Conjunctiva and sclera are non-icteric and not injected. Cornea within normal limits. Periorbital areas with no swelling, redness, or edema. ENT: Nares patent. No nasal discharge, no septal abnormalities noted. Tympanic membranes are normal and external auditory canals are clear. Oropharynx with no redness, swelling, or masses, exudates, or evidence of obstruction, uvula midline. Mucous membranes moist. Neck: Trachea midline, no thyromegaly or masses palpated, and no cervical lymphadenopathy. Supple, full range of motion without nuchal rigidity, or vertebral point tenderness. No Meningismus. Chest/axilla: Normal chest wall appearance and motion. Nontender with no deformity. No lesions are appreciated. Cardiovascular: Regular rate and rhythm with a normal S1 and S2. No gallops, murmurs, or rubs. Normal PMI, no JVD. No pulse deficits. Respiratory: Lungs have equal breath sounds bilaterally, clear to auscultation and percussion. No rales, rhonchi or wheezes noted. No increased work of breathing, no retractions or nasal flaring. Abdomen/GI: Soft, non-tender, with normal bowel sounds. No distension or tympany. No guarding or rebound. No evidence of tenderness throughout. Back: No spinal tenderness. No costovertebral tenderness. Full range of motion. Skin: Warm, dry with normal turgor. Normal color with no rashes, no lesions, and no evidence of cellulitis. MS/ Extremity: Pulses equal, no cyanosis. Neurovascular intact. Full, normal range of motion. Neuro: Awake and alert, GCS 15, oriented to person, place, time, and situation. Cranial nerves II-XII grossly intact. Motor strength 5/5 in all extremities. Sensory grossly intact. Cerebellar exam normal. Normal gait. Vital Signs: 02:56 BP 110 / 60; Pulse 60; Resp 14; Pulse Ox 96% on R/A; Weight 121.56 kg (R); Height 5 ft. ao 6 in. (167.64 cm) (R); Pain 2/10; 03:40 Temp 94.8(R); ao 03:50 BP 105 / 66; Pulse 57; Resp 13; ea 04:50 BP 110 / 62; Pulse 58; Resp 16; Pulse Ox 94% on R/A; ao 07:02 Temp 97.4; ao 02:56 Body Mass Index 43.26 (121.56 kg, 167.64 cm) ao MDM: 02:53 Patient medically screened. pkl 04:36 Data reviewed: vital signs, nurses notes, lab test result(s), EKG, radiologic studies, pkl plain films. 08/12 03:29 Order name: Basic Metabolic Panel; Complete Time: 04:33 pkl 08/12 03:29 Order name: CBC with Diff pkl 08/12 03:29 Order name: LFT's; Complete Time: 04:33 pkl 08/12 03:29 Order name: Magnesium; Complete Time: 04:33 pkl 08/12 03:29 Order name: NT PRO-BNP; Complete Time: 04:33 pkl 08/12 03:29 Order name: PT-INR; Complete Time: 04:33 pkl 08/12 03:29 Order name: Troponin (emerg Dept Use Only); Complete Time: 04:33 pkl 08/12 04:18 Order name: Manual Differential EDMS 08/12 05:02 Order name: Glucose, Ancillary Testing EDMS 08/12 05:02 Order name: Glucose, Ancillary Testing EDMS 08/12 05:02 Order name: Glucose, Ancillary Testing EDMS 08/12 05:02 Order name: Glucose, Ancillary Testing EDMS 08/12 05:30 Order name: Glucose ao 08/12 03:29 Order name: XRAY Chest (1 view) pkl 08/12 03:29 Order name: EKG; Complete Time: 03:30 pkl 08/12 03:29 Order name: Cardiac monitoring; Complete Time: 03:32 pkl 08/12 03:29 Order name: EKG - Nurse/Tech; Complete Time: 03:33 pkl 08/12 03:29 Order name: IV Saline Lock; Complete Time: 03:33 pkl 08/12 03:29 Order name: Labs collected and sent; Complete Time: 03:33 pkl 08/12 03:29 Order name: O2 Per Protocol; Complete Time: 03:33 pkl 08/12 03:29 Order name: O2 Sat Monitoring; Complete Time: 03:35 pkl 08/12 03:30 Order name: Accucheck: q hourly; Complete Time: 05:16 pkl 08/12 06:29 Order name: Glucose Level EDMS 08/12 06:43 Order name: Glucose, Ancillary Testing EDMS 08/12 07:42 Order name: Glucose, Ancillary Testing EDMS 08/12 07:42 Order name: Glucose, Ancillary Testing EDMS Administered Medications: 04:10 Drug: D50W 50 ml Route: IVP; Site: right antecubital; ea 05:30 Follow up: Response: No adverse reaction ao 05:10 Drug: Potassium Chloride 20 mEq Route: IV; Rate: calculated rate; Site: left ao antecubital; 05:30 Follow up: IV Status: Infusion continued upon admission ao Point of Care Testing: Blood Glucose: 03:09 Blood Glucose: 123 mg/dL; ea 04:00 Blood Glucose: 36 mg/dL; ea 04:46 Blood Glucose: 100 mg/dL; oe 05:02 Blood Glucose: 56 mg/dL; ea 06:40 Blood Glucose: 74 mg/dL; oe 07:42 Blood Glucose: 86 mg/dL; hb 04:00 Provider notified, verbal order obtained for medication. ea Ranges: Critical Glucose Levels:Adult <50 mg/dl or >400 mg/dl <40 mg/dl or >180 mg/dl Disposition: 04:36 Critical Care:. [facility] Disposition: 08/12/18 04:38 Hospitalization ordered by Bonnie Love for Inpatient Admission. Preliminary diagnosis is Hypogycemia. Hypokalemia. - Bed requested for Intensive Care Unit. - Status is Inpatient Admission. hb - Condition is Fair. - Problem is new. - Symptoms are unchanged. UTI on Admission? No Signatures: Dispatcher [employer] EDNM Radha Angeles RN RN kl Lam, Pin, MD MD [facility] Nico Desir RN RN ao Baxter, Heather, RN RN hb Antunez, Elena, RN RN ea Corrections: (The following items were deleted from the chart) 03:32 03:31 HEMOGLOBIN A1C+CHEM A1C.LAB.BRZ ordered. [facility] 05:26 04:38 Hospitalization Ordered by Bonnie Love MD for Inpatient Admission. Preliminary kl diagnosis is Hypogycemia. Hypokalemia. Bed requested for Intensive Care Unit. Status is Inpatient Admission. Condition is Fair. Problem is new. Symptoms are unchanged. UTI on Admission? No. pkl 06:38 05:26 08/12/2018 04:38 Hospitalization Ordered by Bonnie Love MD for Inpatient kl Admission. Preliminary diagnosis is Hypogycemia. Hypokalemia. Bed requested for [facility] ER HOLD. Status is Inpatient Admission. Condition is Fair. Problem is new. Symptoms are unchanged. UTI on Admission? No. kl 08:13 06:38 08/12/2018 04:38 Hospitalization Ordered by Bonnie Love MD for Inpatient hb Admission. Preliminary diagnosis is Hypogycemia. Hypokalemia. Bed requested for Intensive Care Unit. Status is Inpatient Admission. Condition is Fair. Problem is new. Symptoms are unchanged. UTI on Admission? No. kl
--- NOTE | 2018-08-12 04:39 | ER ---
Nurse's Notes [facility] Name: Wendy Ziegler Age: 63 yrs Sex: Female : 1955 Arrival Date: 08/12/2018 Time: 02:45 Bed 8 Private MD: Diagnosis: Hypogycemia. Hypokalemia Presentation: 08/12 02:51 Presenting complaint: EMS states: Tone for low blood sugar as reported by family BS of ao 25. Patient was unresponsive. BG by EMS was 35 and was given an amp D50 that brought up to 102. Patient is now AOx3. Patient reported to be in the hospital with the same problem within last few days. Transition of care: patient was not received from another setting of care. Onset of symptoms is unknown. Risk Assessment: Do you want to hurt yourself or someone else? Patient reports no desire to harm self or others. Initial Sepsis Screen: Does the patient meet any 2 criteria? No. Patient's initial sepsis screen is negative. Does the patient have a suspected source of infection? No. Patient's initial sepsis screen is negative. Care prior to arrival: Medication(s) given: D50 amp IV initiated. 20 GA, in the left antecubital area, Glucose check: 102. 02:51 Method Of Arrival: EMS: [facility] ao 03:20 Acuity: SINDY 2 ao Historical: - Allergies: 02:56 Bactrim; ao 02:56 Codeine; ao 02:56 Remicade; ao 02:56 victoza; ao - Home Meds: 02:56 Unable to obtain [Active]; ao - PMHx: 02:56 chronic kidney disease; COPD; Diabetes - IDDM; Hyperlipidemia; Hypertension; Pneumonia; ao Rheumatoid Arthritis; Sleep Apnea; - PSHx: 02:56 None; ao - Immunization history:: Adult Immunizations up to date. - Social history:: Smoking status: Patient/guardian denies using tobacco, Patient/guardian denies using alcohol, street drugs. - Ebola Screening: : Patient negative for fever greater than or equal to 101.5 degrees Fahrenheit, and additional compatible Ebola Virus Disease symptoms Patient denies exposure to infectious person Patient denies travel to an Ebola-affected area in the 21 days before illness onset. Screenin:58 Abuse screen: Denies threats or abuse. Denies injuries from another. Nutritional ao screening: No deficits noted. Tuberculosis screening: No symptoms or risk factors identified. Fall Risk None identified. Assessment: 02:58 General: Appears in no apparent distress. uncomfortable, obese, well nourished, ao Behavior is calm, cooperative. Pain: Denies pain. Neuro: Level of Consciousness is awake, alert, obeys commands, Oriented to person, place, time, situation, Appropriate for age Moves all extremities. Full function Speech is normal, Facial symmetry appears normal. Cardiovascular: Capillary refill < 3 seconds Patient's skin is warm and dry. Respiratory: Airway is patent Respiratory effort is even, unlabored, Respiratory pattern is regular, symmetrical. GI: No signs and/or symptoms were reported involving the gastrointestinal system. GI: Abdomen is distended, obese. : No signs and/or symptoms were reported regarding the genitourinary system. EENT: No signs and/or symptoms were reported regarding the EENT system. Derm: No signs and/or symptoms reported regarding the dermatologic system. Musculoskeletal: No signs and/or symptoms reported regarding the musculoskeletal system. 03:50 Reassessment: Patient and/or family updated on plan of care and expected duration. Pain ea level reassessed. Patient is alert, oriented x 3, equal unlabored respirations, skin warm/dry/pink. 03:50 Reassessment: Patient temperature is 94.5 Rectal. Patient was put on bear huger blanket.ao 04:50 Reassessment: Patient appears in no apparent distress at this time. Patient and/or ao family updated on plan of care and expected duration. Pain level reassessed. Monitoring BS. 05:33 Reassessment: Patient is ER hold See [facility] for future documentation. ao Vital Signs: 02:56 BP 110 / 60; Pulse 60; Resp 14; Pulse Ox 96% on R/A; Weight 121.56 kg (R); Height 5 ft. ao 6 in. (167.64 cm) (R); Pain 2/10; 03:40 Temp 94.8(R); ao 03:50 BP 105 / 66; Pulse 57; Resp 13; ea 04:50 BP 110 / 62; Pulse 58; Resp 16; Pulse Ox 94% on R/A; ao 07:02 Temp 97.4; ao 02:56 Body Mass Index 43.26 (121.56 kg, 167.64 cm) ao ED Course: 02:45 Patient arrived in ED. al2 02:50 Nico Desir, RN is Primary Nurse. ao 02:53 Trav Kwan MD is Attending Physician. pkl 02:55 Triage completed. ao 02:57 Arm band placed on right wrist. Patient placed in an exam room, on a stretcher, on ao gambling monitor, on pulse oximetry, Patient notified of wait time. 02:57 Patient has correct armband on for positive identification. athletic monitor on. Pulse ao ox on. NIBP on. 03:05 Maintain EMS IV. Dressing intact. Good blood return noted. Site clean \T\ dry. Gauge \T\ ea site: 20 G to left AC. 03:40 X-ray completed. Portable x-ray completed in exam room. Patient tolerated procedure sg4 well. 03:43 XRAY Chest (1 view) In Process Unspecified. EDMS 04:37 Bonnie Love MD is Hospitalizing Provider. pkl 05:32 No provider procedures requiring assistance completed. Patient admitted, IV remains in ao place. Administered Medications: 04:10 Drug: D50W 50 ml Route: IVP; Site: right antecubital; ea 05:30 Follow up: Response: No adverse reaction ao 05:10 Drug: Potassium Chloride 20 mEq Route: IV; Rate: calculated rate; Site: left ao antecubital; 05:30 Follow up: IV Status: Infusion continued upon admission ao Point of Care Testing: Blood Glucose: 03:09 Blood Glucose: 123 mg/dL; ea 04:00 Blood Glucose: 36 mg/dL; ea 04:46 Blood Glucose: 100 mg/dL; oe 05:02 Blood Glucose: 56 mg/dL; ea 06:40 Blood Glucose: 74 mg/dL; oe 07:42 Blood Glucose: 86 mg/dL; hb 04:00 Provider notified, verbal order obtained for medication. ea Ranges: Outcome: 04:38 Decision to Hospitalize by Provider. pkl 05:32 Admitted to ER Hold. Please see [facility] for further documentation. ao 05:32 Condition: stable 05:32 Instructed on the need for admit. 08:13 Patient left the ED. hb Signatures: Dispatcher [employer] EDKS Trav Kwan MD MD pkNico Hubbard RN RN ao Giordano, Allison, RN Connor Bonilla Elena, RN Kellen Petty ea, Susana sg4 Corrections: (The following items were deleted from the chart) 03:20 02:51 Acuity: SINDY 3 ao ao
[2018-08-12] MEDS ORDERED: KCL 20 MEQ/100 mL IVPB 20 MEQ/100 ML BAG IV ONE (05:03)
[2018-08-12] MEDS ORDERED: D5W 1,000 ML IV ONE (05:17)
[2018-08-12 05:19] LABS: Blood Morphology Comment NOT SEEN (NOT SEEN); Platelet Estimate ADEQ
[2018-08-12] MEDS ORDERED: D50W 25 GM/50 ML SYRINGE IV PRN (05:22)
[2018-08-12] MEDS ORDERED: ONDANSETRON 4 MG/2 ML VIAL IV PRN (05:22)
[2018-08-12] MEDS ORDERED: ACETAMINOPHEN 500 MG TAB PO PRN (05:22)
--- NOTE | 2018-08-12 05:23 | P.HP ---
Certification for Inpatient Patient admitted to: Inpatient With expected LOS: >2 Midnights Practitioner: I am a practitioner with admitting privileges, knowledge of patient current condition, hospital course, and medical plan of care. Services: Services provided to patient in accordance with Admission requirements found in Title 42 Section 412.3 of the Code of Federal Regulations Patient History Date of Service: 08/12/18 Reason for admission: Acute encephalopathy, hypoglycemia History of Present Illness: Ms Ziegler 63-year-old woman with history of COPD, CKD, obesity, diabetes mellitus insulin-dependent, hypertension, who was recently admitted to the hospital due to hypoglycemic episodes, before to go home, the Lantus insulin dose was decreased. Today around 130 in the morning, the patient woke up and went to the restroom, when she came back to bed she was lethargic, having trouble to place her CPAP mask. Her measure her blood sugars and it was 25. Subsequently, 911 was called. When EMS arrived, her blood sugar was 35 , she received an amp of D50 rise in her blood sugar to 120. Then the patient was transferred to ER. During his stay in ED, the blood sugar keeps dropping despite the treatment with D50%. No history of fever or chills, no cough or shortness of breath, no chest pain. The patient states that she took last night long acting insulin 25 units, she had dinner without any problems. She did not use her Humalog insulin. Allergies infliximab [From Remicade] Allergy (Intermediate, Verified 05/25/18 03:50) Itching/Hives/Rash sulfamethoxazole [From Bactrim] Allergy (Intermediate, Verified 05/25/18 03:50) Nausea/Vomiting trimethoprim [From Bactrim] Allergy (Intermediate, Verified 05/25/18 03:50) Nausea/Vomiting codeine Allergy (Verified 05/25/18 03:50) Nausea/Vomiting victoza Adverse Reaction (Uncoded 05/25/18 03:50) Anaphylaxis Home medications list reviewed: Yes Home Medications: Abatacept [Orencia] 1,000 unit SQ SEECOM 05/25/18 Allopurinol [Zyloprim*] 100 mg PO DAILY 05/25/18 Amlodipine [Norvasc*] 5 mg PO DAILY 05/25/18 Ascorbic Acid [Vitamin C*] 1,000 mg PO DAILY 05/25/18 Aspirin Chewable [Aspirin Chewable*] 81 mg PO DAILY 05/25/18 Calcitriol [Rocaltrol] 0.25 mcg PO DAILY 05/25/18 Carvedilol [Coreg*] 25 mg PO BID 05/25/18 Cholecalciferol (Vitamin D3) [Vitamin D 400 IU TAB*] 400 unit PO BID 05/25/18 Docosahexanoic AC/Epa [Fish Oil 1,000 MG*] 1 tab PO DAILY 05/25/18 Duloxetine [Cymbalta *] 60 mg PO DAILY 05/25/18 Famotidine [Pepcid*] 20 mg PO DAILY 05/25/18 Folic Acid/Vit B Complex and C [Folbee Plus Tablet] 5 mg PO DAILY 05/25/18 Furosemide [Lasix*] 20 mg PO SEECOM 05/25/18 Hydralazine [Apresoline*] 100 mg PO TID 05/25/18 Hydroxychloroquine [Plaquenil*] 200 mg PO BID 05/25/18 Leflunomide [Arava] 20 mg PO DAILY 05/25/18 Loratadine [Claritin*] 10 mg PO DAILY 05/25/18 Potassium Chloride 20 meq PO BID 05/25/18 Pravastatin Sodium [Pravachol] 40 mg PO BEDTIME 05/25/18 Sodium Bicarbonate 1,300 mg PO TID 05/25/18 Fluticasone/Umeclidin/Vilanter [Trelegy Ellipta 100-62.5-25] 1 inh PO DAILY Pregabalin [Lyrica*] 50 mg PO BID 08/08/18 Insulin Glargine Human [Lantus*] 10 units SQ BEDTIME #1 vial 08/10/18 Insulin Lispro [Humalog*] 5 units SQ SEECOM #1 vial 08/10/18 - Past Medical/Surgical History Diabetic: Yes -: pneumonia -: rheumatoid arthritis -: hypertension -: hyperlipidemia -: copd -: spleenectomy -: knee surg -: back surg -: tens unit in back - Family History Family History: Reviewed- Non-Contributory - Social History Smoking Status: Never smoker Alcohol use: No CD- Drugs: No Caffeine use: No Place of Residence: Home Review of Systems 10-point ROS is otherwise unremarkable Physical Examination - Physical Exam General: Alert, In no apparent distress, Other (Lethargic) HEENT: Atraumatic, PERRLA, Mucous membr. moist/pink, EOMI, Sclerae nonicteric Neck: Supple, 2+ carotid pulse no bruit, No LAD, Without JVD or thyroid abnormality Respiratory: Clear to auscultation bilaterally, Normal air movement Cardiovascular: Regular rate/rhythm, Normal S1 S2 Gastrointestinal: Normal bowel sounds, No tenderness Musculoskeletal: No tenderness Integumentary: No rashes Neurological: Normal speech, Normal strength at 5/5 x4 extr, Normal tone, Normal affect Lymphatics: No axilla or inguinal lymphadenopathy - Studies Laboratory Data (last 24 hrs) 08/12/18 03:43: PT 12.6 H, INR 1.07 08/12/18 03:43: WBC 9.7 D, Hgb 8.1 L, Hct 24.6 L, Plt Count 262 08/12/18 03:43: Sodium 140, Potassium 3.1 L, BUN 50 H, Creatinine 4.20 H, Glucose 96, Magnesium 2.3, Total Bilirubin 0.4, AST 42 H, ALT 40, Alkaline Phosphatase 106 Assessment and Plan - Problems (Diagnosis) (1) Acute encephalopathy Current Visit: Yes Status: Acute (2) Diabetes mellitus Current Visit: Yes Status: Acute Qualifiers: Diabetes mellitus type: type 2 Diabetes mellitus halfway insulin use: with halfway use Diabetes mellitus complication status: with unspecified complications Qualified Code(s): E11.8 - Type 2 diabetes mellitus with unspecified complications; Z79.4 - [facility] (current) use of insulin (3) Hypoglycemia Current Visit: Yes Status: Acute (4) COPD (chronic obstructive pulmonary disease) Onset Date: 05/29/18 Current Visit: No Status: Acute Qualifiers: COPD type: unspecified COPD Qualified Code(s): J44.9 - Chronic obstructive pulmonary disease, unspecified (5) Hypokalemia Current Visit: Yes Status: Acute - Plan The patient will be admitted to ICU for blood sugar close monitoring. Will order D5 NS infusion in order to keep blood sugar well controlled. Will correct potassium level per protocol. Once blood sugar is better controlled, the patient could be transferred to the floor and readjust the long acting insulin dose. - Advance Directives Does patient have a Living Will: No Does patient have a Durable POA for Healthcare: No - Code Status/Comfort Care Code Status Assessed: Yes Code Status: Full Code Critical Care: Yes (30 min)
[2018-08-12] MEDS ORDERED: ALBUTEROL 2.5 MG/3 ML NEB SOL NEB PRN (05:27)
[2018-08-12] MEDS ORDERED: IPRATROPIUM BROM 0.5MG/2.5ML NEB PRN (05:27)
[2018-08-12] MEDS ORDERED: D5 0.9 NS 1,000 ML IV SCH (06:00)
[2018-08-12] MEDS: ENOXAPARIN 30 MG/0.3 ML SQ SCH ×2 (09:00→10:02)
[2018-08-12 10:30] LABS: LDL, Direct 32 mg/dL (100-129)
--- NOTE | 2018-08-12 10:58 | RAD REPORT ---
EXAM DESCRIPTION: RAD - Chest Single View - 08/12/2018 3:45 am CLINICAL HISTORY: hypoglcemia Chest pain. COMPARISON: Chest Single View dated 08/08/2018; Chest Single View dated 05/25/2018; Chest Pa And Lat (2 Views) dated 05/23/2018; Chest Pa And Lat (2 Views) dated 03/01/2018 FINDINGS: Portable technique limits examination quality. The lungs are grossly clear. The heart is mildly enlarged in size. No displaced fractures. IMPRESSION: No acute intrathoracic process suspected.
[2018-08-12] MEDS ORDERED: FUROSEMIDE 20 MG TABLET PO SCH (13:00)
[2018-08-12] MEDS ORDERED: SODIUM BICARBONATE 1300 MG PO SCH (14:00)
[2018-08-12] MEDS ORDERED: NA CHLORIDE 0.9% 1,000 ML IV SCH (14:00)
[2018-08-12] MEDS: HYDRALAZINE HCL 25 MG TABLET PO SCH ×2 (14:30→20:09)
[2018-08-12 14:56] LABS: Potassium 3.5 mmol/L (3.5-5.1)
[2018-08-12] MEDS: FUROSEMIDE 20 MG TABLET PO SCH (15:44)
[2018-08-12] MEDS: SODIUM BICARB 325 MG TAB PO SCH ×2 (15:44→20:08)
[2018-08-12 16:29] LABS: Urine Appearance CLEAR; Urine Bilirubin NEGATIVE (NEG); Urine Blood NEGATIVE (NEG); Urine Color YELLOW; Urine Glucose TRACE (NEG); Urine Protein 3+ (NEG); Urine Specific Gravity 1.015 (1.005-1.030); Urine Urobilinogen 0.2 mg/dL (0.2-1.0)
[2018-08-12 17:35] LABS: Urine Bacteria <20 /HPF (<20); Urine Culture Reflex Order NOT NEEDED; Urine RBC <5 /HPF (NONE SEEN)
[2018-08-12] MEDS: PREGABALIN 50 MG CAP PO SCH (20:07)
[2018-08-12] MEDS: VITAMIN D 400 UNIT TAB PO SCH (20:07)
[2018-08-12] MEDS: ATORVASTATIN 10 MG TAB PO SCH (20:08)
[2018-08-12] MEDS: HYDROXYCHLOROQUINE 200MG TAB PO SCH (20:08)
[2018-08-12] MEDS: CARVEDILOL 25 MG TAB PO SCH (20:08)
[2018-08-12] MEDS ORDERED: HOME MED 1 EA UNK (Pravastatin Sodium [Pravachol] 40 MG) PO SCH (21:00)
[2018-08-13 05:21] VITALS: BMI 45.0
[2018-08-13 05:53] LABS: Absolute Lymphocytes (CBC) 1.8 K/uL (0.7-4.9); Absolute Neutrophil 3.4 K/uL (1.8-8.0); Eosinophils % 11.6 % (0-4.4); Hematocrit 23.4 % (36.0-45.0); Lymphocytes % 25.4 % (15.3-44.8); MCH 34.6 pg (27.0-35.0); MCV 102.1 fL (80-100); MPV 9.4 fL (7.6-11.3); Monocytes % 14.2 % (3.3-12.3); RBC Red Blood Cell Count 2.29 M/uL (3.86-4.86)
[2018-08-13 06:02] LABS: Potassium 3.4 mmol/L (3.5-5.1)
[2018-08-13] MEDS ORDERED: POTASSIUM 25 MEQ EFFERV TAB PO ONE (06:07)
[2018-08-13] MEDS: ASCORBIC ACID 500 MG TABLET PO SCH (08:37)
[2018-08-13] MEDS: DULOXETINE 30 MG CAP PO SCH (08:38)
[2018-08-13] MEDS: FAMOTIDINE 20 MG TAB PO SCH (08:38)
[2018-08-13] MEDS: PREGABALIN 50 MG CAP PO SCH ×2 (08:38→20:36)
[2018-08-13] MEDS: HYDRALAZINE HCL 25 MG TABLET PO SCH ×3 (08:38→20:37)
[2018-08-13] MEDS: ASPIRIN 81 MG CHEWABLE TABLET PO SCH (08:38)
[2018-08-13] MEDS: FUROSEMIDE 40 MG TABLET PO SCH (08:39)
[2018-08-13] MEDS: CARVEDILOL 25 MG TAB PO SCH ×2 (08:39→20:36)
[2018-08-13] MEDS: ENOXAPARIN 30 MG/0.3 ML SQ SCH (08:39)
[2018-08-13] MEDS: ALLOPURINOL 100 MG TAB PO SCH (08:39)
[2018-08-13] MEDS: AMLODIPINE 5 MG TAB PO SCH (08:39)
[2018-08-13] MEDS: VITAMIN D 400 UNIT TAB PO SCH ×2 (08:41→20:36)
[2018-08-13] MEDS: HYDROXYCHLOROQUINE 200MG TAB PO SCH ×2 (08:41→20:36)
[2018-08-13] MEDS: SODIUM BICARB 325 MG TAB PO SCH ×3 (08:41→20:36)
[2018-08-13] MEDS: FOLBIC 1 TAB PO SCH (08:42)
[2018-08-13] MEDS: DOCOSAHEXANOIC AC/EPA 1000 MG PO SCH (08:42)
[2018-08-13] MEDS: CALCITROL 0.25 MCG CAP PO SCH (08:42)
[2018-08-13] MEDS ORDERED: FOLIC ACID PO SCH (09:00)
[2018-08-13] MEDS ORDERED: VIT B COMPLEX AND C PO SCH (09:00)
[2018-08-13] MEDS ORDERED: D50W 25 GM/50 ML SYRINGE IV PRN (10:08)
[2018-08-13] MEDS ORDERED: GLUCAGON 1 MG/VIAL IM PRN (10:08)
--- NOTE | 2018-08-13 10:23 | P.CNS ---
Date of Consult: 08/13/18 Reason for Consult: CKD Requesting Physician: Oneyda John Chief Complaint: Acute encephalopathy, hypoglycemia History of Present Illness: Pleasant 63 yof with hx of CKD who follows with Dr Breaux in the outpt setting. Admitted with hypoglycemia. Glucose is improving Ms Ziegler is a 63 Y O female with past medical history significant for DM on insulin ,Rheumatoid arthritis and Htn with h/O atrophic left kidney. She was seen last month and had just recovered from shingles.SHe was also noted to have worsening renal failure with creatinine of 4 and hence was advised to stop the lasix but had worsening edema and hence had to restart back on it comes for follow up and states that her shingles pain has been worsening and she has been on gabapentin three times a day has been sleeping more reports shortness of breath with exertion urinating well Admitted to [facility] from 09/19 to 09/28 for resp failure and diagnosed with pericardial effusion and pleural effusion ,treated with antibiotics for pneumonia She also had acute on chronic CKD ,creatinine was 3.4 upon discharge from hospital on 09/28 Allergies infliximab [From Remicade] Allergy (Intermediate, Verified 08/12/18 06:40) Itching/Hives/Rash sulfamethoxazole [From Bactrim] Allergy (Intermediate, Verified 08/12/18 06:40) Nausea/Vomiting trimethoprim [From Bactrim] Allergy (Intermediate, Verified 08/12/18 06:40) Nausea/Vomiting codeine Allergy (Verified 08/12/18 06:40) Nausea/Vomiting victoza Adverse Reaction (Uncoded 08/12/18 06:40) Anaphylaxis Home Medications: Abatacept [Orencia] 1,000 unit SQ SEECOM 05/25/18 Allopurinol [Zyloprim*] 100 mg PO DAILY 05/25/18 Amlodipine [Norvasc*] 5 mg PO DAILY 05/25/18 Ascorbic Acid [Vitamin C*] 1,000 mg PO DAILY 05/25/18 Aspirin Chewable [Aspirin Chewable*] 81 mg PO DAILY 05/25/18 Calcitriol [Rocaltrol] 0.25 mcg PO DAILY 05/25/18 Carvedilol [Coreg*] 25 mg PO BID 05/25/18 Cholecalciferol (Vitamin D3) [Vitamin D 400 IU TAB*] 400 unit PO BID 05/25/18 Docosahexanoic AC/Epa [Fish Oil 1,000 MG*] 1 tab PO DAILY 05/25/18 Duloxetine [Cymbalta *] 60 mg PO DAILY 05/25/18 Famotidine [Pepcid*] 20 mg PO DAILY 05/25/18 Folic Acid/Vit B Complex and C [Folbee Plus Tablet] 5 mg PO DAILY 05/25/18 Furosemide [Lasix*] 20 mg PO SEECOM 05/25/18 Hydralazine [Apresoline*] 100 mg PO TID 05/25/18 Hydroxychloroquine [Plaquenil*] 200 mg PO BID 05/25/18 Leflunomide [Arava] 20 mg PO DAILY 05/25/18 Loratadine [Claritin*] 10 mg PO DAILY 05/25/18 Potassium Chloride 20 meq PO BID 05/25/18 Pravastatin Sodium [Pravachol] 40 mg PO BEDTIME 05/25/18 Sodium Bicarbonate 1,300 mg PO TID 05/25/18 Fluticasone/Umeclidin/Vilanter [Trelegy Ellipta 100-62.5-25] 1 inh PO DAILY Pregabalin [Lyrica*] 50 mg PO BID 08/08/18 Insulin Lispro [Humalog*] 5 units SQ SEECOM #1 vial 08/10/18 Insulin Glargine Human [Lantus*] 20 units SQ BEDTIME 08/12/18 - Past Medical/Surgical History Diabetic: Yes -: pneumonia -: rheumatoid arthritis -: hypertension -: hyperlipidemia -: copd -: spleenectomy -: knee surg -: back surg -: tens unit in back - Social History Alcohol use: No CD- Drugs: No Caffeine use: No Place of Residence: Home Review of Systems General: Unremarkable Respiratory: Unremarkable Cardiovascular: Unremarkable Gastrointestinal: Unremarkable Genitourinary: Unremarkable Musculoskeletal: Unremarkable Physical Examination Temp Pulse Resp BP Pulse Ox 97.2 F 80 16 137/58 L 96 08/13/18 04:00 08/13/18 08:39 08/13/18 06:00 08/13/18 08:39 08/13/18 06:00 General: Alert, Oriented x3 HEENT: Atraumatic Respiratory: Clear to auscultation bilaterally Cardiovascular: Regular rate/rhythm, Normal S1 S2, No gallops, No rubs, No murmurs Gastrointestinal: Normal bowel sounds, Soft and benign - Problems (1) CKD stage 4 due to type 2 diabetes mellitus Current Visit: Yes Status: Acute Comment: Renal fucntion stable Renall dose all meds Avoid nsaids/contrast Encourage po intake Plan: Renal function stable Renal dose all meds Cont sodium bicarb and calcitriol Okay to cont RA meds Avoid nsaids/contrast (2) Hypoglycemia Onset Date: 08/13/18 Current Visit: Yes Status: Acute Plan: Improving
[2018-08-13] MEDS: INSULIN -REGULAR HUMAN 50 UNIT/0.5 ML ML SQ SCH ×3 (12:20→21:25)
--- NOTE | 2018-08-13 14:19 | P.PN ---
Subjective Date of Service: 08/13/18 Chief Complaint: Acute encephalopathy, hypoglycemia Subjective: No C/O voiced, Tolerating diet, Ambulating, Improving, Working w/ PT , Doing well Review of Systems 10-point ROS is otherwise unremarkable Physical Examination - Vital Signs Temperature: 98 F Blood Pressure: 154/72 Pulse: 80 Respirations: 18 Pulse Ox (%): 90 - Physical Exam General: Alert, In no apparent distress HEENT: Atraumatic, PERRLA, EOMI Neck: Supple, JVD not distended Respiratory: Clear to auscultation bilaterally, Normal air movement Cardiovascular: Regular rate/rhythm, Normal S1 S2 Gastrointestinal: Normal bowel sounds, No tenderness Musculoskeletal: No tenderness Integumentary: No rashes Neurological: Normal speech, Normal tone, Normal affect Lymphatics: No axilla or inguinal lymphadenopathy - Studies Medications List Reviewed: Yes Assessment And Plan - Current Problems (Diagnosis) (1) Hypoglycemia Onset Date: 08/13/18 Current Visit: Yes Status: Resolved Plan: Patient accidentally took 25 units of insulin rather than taking 10 units of insulin at home -hypoglycemia now resolved -will monitor for next 24 hr to assess the insulin needs and will readjust the dose before discharge. -anticipate discharge in 24-48 hr (2) Acute encephalopathy Onset Date: 08/13/18 Current Visit: Yes Status: Acute Plan: Most likely secondary to hypoglycemia -alert and oriented x3 now -does seem to have underlying dementia\-will have her follow up with neurology outpatient (3) CKD stage 4 due to type 2 diabetes mellitus Current Visit: Yes Status: Chronic Plan: CKD with type 2 diabetes -nephrology consulted appreciated recommendations at this time -currently BUN and creatinine stable -ovoid any nephrotoxic agents at this time (4) Diabetes mellitus Onset Date: 08/13/18 Current Visit: Yes Status: Chronic Qualifiers: Diabetes mellitus type: type 2 Diabetes mellitus intermediate insulin use: with intermediate use Diabetes mellitus complication status: with unspecified complications Qualified Code(s): E11.8 - Type 2 diabetes mellitus with unspecified complications; 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
[2018-08-13] MEDS: FUROSEMIDE 20 MG TABLET PO SCH (17:20)
[2018-08-13] MEDS: ATORVASTATIN 10 MG TAB PO SCH (20:36)
[2018-08-13 22:34] VITALS: O2SAT 96
[2018-08-14 06:01] LABS: Potassium 3.7 mmol/L (3.5-5.1)
[2018-08-14] MEDS ORDERED: POTASSIUM CL SA 10 MEQ TAB PO ONE (07:00)
[2018-08-14] MEDS: INSULIN -REGULAR HUMAN 50 UNIT/0.5 ML ML SQ SCH ×2 (09:15→12:25)
[2018-08-14] MEDS: HYDRALAZINE HCL 25 MG TABLET PO SCH ×2 (09:27→14:33)
[2018-08-14] MEDS: ASPIRIN 81 MG CHEWABLE TABLET PO SCH (09:27)
[2018-08-14] MEDS: CARVEDILOL 25 MG TAB PO SCH (09:28)
[2018-08-14] MEDS: DULOXETINE 30 MG CAP PO SCH (09:28)
[2018-08-14] MEDS: ASCORBIC ACID 500 MG TABLET PO SCH (09:28)
[2018-08-14] MEDS: CALCITROL 0.25 MCG CAP PO SCH (09:28)
[2018-08-14] MEDS: SODIUM BICARB 325 MG TAB PO SCH ×2 (09:29→14:33)
[2018-08-14] MEDS: FUROSEMIDE 40 MG TABLET PO SCH (09:29)
[2018-08-14] MEDS: ENOXAPARIN 30 MG/0.3 ML SQ SCH (09:30)
[2018-08-14] MEDS: DOCOSAHEXANOIC AC/EPA 1000 MG PO SCH (10:46)
[2018-08-14] MEDS: AMLODIPINE 5 MG TAB PO SCH (10:48)
[2018-08-14] MEDS: VITAMIN D 400 UNIT TAB PO SCH (10:48)
[2018-08-14] MEDS: PREGABALIN 50 MG CAP PO SCH (10:48)
[2018-08-14] MEDS: HYDROXYCHLOROQUINE 200MG TAB PO SCH (10:48)
[2018-08-14] MEDS: ALLOPURINOL 100 MG TAB PO SCH (10:49)
[2018-08-14] MEDS: FAMOTIDINE 20 MG TAB PO SCH (10:49)
[2018-08-14] MEDS: FOLBIC 1 TAB PO SCH (11:27)
[2018-08-14 13:40] VITALS: BP 161/81; TEMP 97.7
--- NOTE | 2018-08-14 15:45 | P.DS ---
Admission Date: 08/12/18 Discharge Date: 08/14/18 Disposition: ROUTINE DISCHARGE Discharge Condition: GOOD Reason for Admission: Acute encephalopathy, hypoglycemia - Problems (1) Hypoglycemia Onset Date: 08/13/18 Status: Resolved (2) Acute encephalopathy Onset Date: 08/13/18 Status: Acute (3) CKD stage 4 due to type 2 diabetes mellitus Status: Chronic (4) Diabetes mellitus Onset Date: 08/13/18 Status: Chronic Qualifiers: Diabetes mellitus type: type 2 Diabetes mellitus mcc insulin use: with mcc use Diabetes mellitus complication status: with unspecified complications Qualified Code(s): E11.8 - Type 2 diabetes mellitus with unspecified complications; Z79.4 - MCFP (current) use of insulin (5) COPD (chronic obstructive pulmonary disease) Onset Date: 05/29/18 Status: Chronic Qualifiers: COPD type: unspecified COPD Qualified Code(s): J44.9 - Chronic obstructive pulmonary disease, unspecified (6) Rheumatoid arthritis Onset Date: 05/29/18 Status: Chronic Qualifiers: Rheumatoid arthritis location: unspecified site Rheumatoid factor presence : unspecified presence Qualified Code(s): M06.9 - Rheumatoid arthritis, unspecified Brief History of Present Illness: Ms Ziegler 63-year-old woman with history of COPD, CKD, obesity, diabetes mellitus insulin-dependent, hypertension, who was recently admitted to the hospital due to hypoglycemic episodes, before to go home, the Lantus insulin dose was decreased. Today around 130 in the morning, the patient woke up and went to the restroom, when she came back to bed she was lethargic, having trouble to place her CPAP mask. Her measure her blood sugars and it was 25. Subsequently, 911 was called. When EMS arrived, her blood sugar was 35 , she received an amp of D50 rise in her blood sugar to 120. Then the patient was transferred to ER. During his stay in ED, the blood sugar keeps dropping despite the treatment with D50%. No history of fever or chills, no cough or shortness of breath, no chest pain. The patient states that she took last night long acting insulin 25 units, she had dinner without any problems. She did not use her Humalog insulin. Hospital Course: Overall during the hospital stay patient remained stable. pt was admitted to the hospital for Hypoglycemia due to patinent giving herself 25 units of Insulin instead of 10units. Pt was admitted to the ICU and Started on IV fluids with D5W. Patient had marked improvement in her symptoms. Patient blood sugar rise to 200 and patient was transferred to the regular floor. Patient was discharged home under stable condition was asked to continue taking her insulin as prescribed by her primary care doctor. Vital Signs/Physical Exam: Temp Pulse Resp BP Pulse Ox 97.7 F 89 18 161/81 H 92 08/14/18 12:00 08/14/18 12:00 08/14/18 12:00 08/14/18 12:00 08/14/18 12:00 General: Alert, In no apparent distress HEENT: Atraumatic, PERRLA, EOMI Neck: Supple, JVD not distended Respiratory: Clear to auscultation bilaterally, Normal air movement Cardiovascular: Regular rate/rhythm, Normal S1 S2 Gastrointestinal: Normal bowel sounds, No tenderness Musculoskeletal: No tenderness Integumentary: No rashes Neurological: Normal speech, Normal tone, Normal affect Lymphatics: No axilla or inguinal lymphadenopathy Laboratory Data at Discharge: WBC 7.1 K/uL (4.3-10.9) D 08/13/18 05:23 Hgb 7.9 g/dL (12.0-15.0) L* 08/13/18 05:23 Hct 23.4 % (36.0-45.0) L 08/13/18 05:23 Plt Count 274 K/uL (152-406) 08/13/18 05:23 PT 12.6 SECONDS (9.5-12.5) H 08/12/18 03:43 INR 1.07 08/12/18 03:43 Sodium 140 mmol/L (136-145) 08/14/18 05:25 Potassium 3.7 mmol/L (3.5-5.1) 08/14/18 05:25 BUN 50 mg/dL (7-18) H 08/14/18 05:25 Creatinine 4.00 mg/dL (0.55-1.3) H 08/14/18 05:25 Glucose 224 mg/dL (74-106) H 08/14/18 05:25 Magnesium 2.3 mg/dL (1.8-2.4) 08/12/18 03:43 Total Bilirubin 0.4 mg/dL (0.2-1.0) 08/12/18 03:43 AST 42 U/L (15-37) H 08/12/18 03:43 ALT 40 U/L (12-78) 08/12/18 03:43 Alkaline Phosphatase 106 U/L (45-117) 08/12/18 03:43 Triglycerides 669 mg/dL (<150) H 08/12/18 09:22 LDL Cholesterol Direct 32 mg/dL (100-129) L 08/12/18 09:22 Home Medications: Abatacept [Orencia] 1,000 unit SQ SEECOM 05/25/18 Allopurinol [Zyloprim*] 100 mg PO DAILY 05/25/18 Amlodipine [Norvasc*] 5 mg PO DAILY 05/25/18 Ascorbic Acid [Vitamin C*] 1,000 mg PO DAILY 05/25/18 Aspirin Chewable [Aspirin Chewable*] 81 mg PO DAILY 05/25/18 Calcitriol [Rocaltrol] 0.25 mcg PO DAILY 05/25/18 Carvedilol [Coreg*] 25 mg PO BID 05/25/18 Cholecalciferol (Vitamin D3) [Vitamin D 400 IU TAB*] 400 unit PO BID 05/25/18 Docosahexanoic AC/Epa [Fish Oil 1,000 MG*] 1 tab PO DAILY 05/25/18 Duloxetine [Cymbalta *] 60 mg PO DAILY 05/25/18 Famotidine [Pepcid*] 20 mg PO DAILY 05/25/18 Folic Acid/Vit B Complex and C [Folbee Plus Tablet] 5 mg PO DAILY 05/25/18 Furosemide [Lasix*] 20 mg PO SEECOM 05/25/18 Hydralazine [Apresoline*] 100 mg PO TID 05/25/18 Hydroxychloroquine [Plaquenil*] 200 mg PO BID 05/25/18 Leflunomide [Arava] 20 mg PO DAILY 05/25/18 Loratadine [Claritin*] 10 mg PO DAILY 05/25/18 Potassium Chloride 20 meq PO BID 05/25/18 Pravastatin Sodium [Pravachol] 40 mg PO BEDTIME 05/25/18 Sodium Bicarbonate 1,300 mg PO TID 05/25/18 Fluticasone/Umeclidin/Vilanter [Trelegy Ellipta 100-62.5-25] 1 inh PO DAILY Pregabalin [Lyrica*] 50 mg PO BID 08/08/18 Insulin Lispro [Humalog*] 5 units SQ SEECOM #1 vial 08/10/18 Insulin Glargine Human [Lantus*] 10 units SQ BEDTIME #10 ml 08/14/18 New Medications: Insulin Glargine Human [Lantus*] 10 units SQ BEDTIME #10 ml Diet: Regular Activity: Ad ila
== END 2018-08-14 14:58 | disposition home health service (06) | DRG 918 ==
LOC: ER 02:44 → ERHOLD 04:40 → 3RD-ICU 07:28 → 2ND 08-13 10:26
PROVIDERS: ADMIT Internal Medicine; ATTEND Internal Medicine
DX: T38.3X1A Poisoning by insulin and oral hypoglycemic [antidiabetic] drugs, accidental (unintentional), initial encounter (principal); N18.4 Chronic kidney disease, stage 4 (severe); G93.40 Encephalopathy, unspecified; Z68.42 Body mass index [BMI] 45.0-49.9, adult; E11.649 Type 2 diabetes mellitus with hypoglycemia without coma; Y92.009 Unspecified place in unspecified non-institutional (private) residence as the place of occurrence of the external cause; J44.9 Chronic obstructive pulmonary disease, unspecified; M06.9 Rheumatoid arthritis, unspecified; I12.9 Hypertensive chronic kidney disease with stage 1 through stage 4 chronic kidney disease, or unspecified chronic kidney disease; E11.22 Type 2 diabetes mellitus with diabetic chronic kidney disease; E66.9 Obesity, unspecified; Z88.2 Allergy status to sulfonamides
CPT/HCPCS: 36415; 71045; 80048; 80076; 81001; 82947; 82962; 83735; 83880; 84132; 84478; 84484; 85025; 85610; 96365; 96375; 97163; 99285; J1650; J7030

== ENCOUNTER 2018-09-21 11:43 | Emergency (ER) | payer BC ==
--- OUTSIDE RECORDS SUMMARY | 2018-09-21 11:49 | XMS REPORT | Clinical Summary ---
:1955 Author Organization [facility] Address [address] [place] [address] Care Team Providers Name Role Phone Paulette [...] mcg/actuation inhaler 2 (two) times daily. omega 0-eis-zjl-fish Take 1,600 mg by 0 Active oil [...] Orders Only General Internal Medicine 09/19/2017 - [facility] General Internal Dylanghassan Aldojaneth Pneumonia of right [...] (HCC); JAVED (acute kidney injury) (HCC) after 09/20/2017 Family History Medical History Relation Name Comments [...] Taken Blood Pressure 118/58 09/28/2017 3:44 PM LABEL CODER Pulse 88 09/28/2017 3:44 PM LABEL CODER Temperature 36.2 C (97.2 F) 09/28/2017 3:44 PM LABEL CODER Respiratory Rate 18 09/28/2017 3:44 PM LABEL CODER Oxygen Saturation 94% 09/28/2017 3:44 PM LABEL CODER Inhaled Oxygen Concentration 21% 09/26/2017 8:26 AM LABEL CODER Weight 123 kg (271 lb 4 oz) 09/27/2017 6:00 AM LABEL CODER Height - - Body Mass Index 43.59 09/27/2017 6:00 AM LABEL CODER Plan of Treatment Not on file Procedures Procedure Name Priority Date/Time Associated Comments Diagnosis REPORT OF PROCEDURE - 09/29/2017 1:53 ENDOSCOPY SCAN PM LABEL [facility]ER RHYTHM STRIP - SCAN 09/29/2017 1:53 PM LABEL C[facility]ER ECHOCARDIOGRAM REPORT - 09/28/2017 1:50 SCAN PM LABEL [facility]ER POCT-GLUCOSE METER Routine 09/28/2017 11:52 Results for this AM LABEL CODER procedure are in the results section. POCT-GLUCOSE METER Routine 09/28/2017 8:55 Results for this AM LABEL [facility]ODER procedure are in the results section. MAGNESIUM Routine 09/28/2017 6:09 Results for this AM LABEL [facility]ODER procedure are in the results section. BASIC METABOLIC PANEL Routine 09/28/2017 6:09 Results for this (7) AM LAB[facility] procedure are in the results section. MISCELLANEOUS LAB ORDER Routine 09/28/2017 6:09 AM LABEL [facility]ODER POCT-GLUCOSE METER Routine 09/27/2017 9:10 Results for this PM [facility]ER procedure are in the results section. PROTEIN, BODY FLUID Routine 09/27/2017 7:36 Results for this PM [facility]EL [facility]ODER procedure are in the results section. LACTATE DEHYDROGENASE Routine 09/27/2017 7:36 Results for this (LDH), BODY FLUID PM LABEL CODER procedure are in the results section. BODY FLUID CULTURE + Routine 09/27/2017 7:36 Results for this GRAM STAIN PM LABEL [facility]ER procedure are in the results section. BODY FLUID CELL COUNT Routine 09/27/2017 7:36 Results for this WITH DIFFERENTIAL PM LABEL [facility]ER procedure are in the results section. LIMITED 2D ELADIO 09/27/2017 6:59 Results for this ECHOCARDIOGRAM PM LABEL CODER procedure are in the results section. POCT-GLUCOSE METER Routine 09/27/2017 5:11 Results for this PM [facility]EL [facility]ER procedure are in the results section. US THORACENTESIS Routine 09/27/2017 4:15 Results for this PM [facility]EL [facility]ER procedure are in the results section. XR CHEST 1 VIEW STAT 09/27/2017 4:10 Results for this PORTABLE/BEDSIDE PM LABEL [facility]ODER procedure are in the results section. XR CHEST 1 VIEW Routine 09/27/2017 12:49 Results for this PORTABLE/BEDSIDE PM LABEL [facility]ER procedure are in the results section. POCT-GLUCOSE METER Routine 09/27/2017 12:29 Results for this PM LABEL [facility]ER procedure are in the results section. POCT-GLUCOSE METER Routine 09/27/2017 7:56 Results for this AM LABEL [facility]ODER procedure are in the results section. VITAMIN B12 AND FOLATE Routine 09/27/2017 4:54 Results for this AM LABEL [facility]ODER procedure are in the results section. MAGNESIUM Routine 09/27/2017 4:54 Results for this AM LABEL [facility]ODER procedure are in the results section. BASIC METABOLIC PANEL Routine 09/27/2017 4:54 Results for this (7) AM LABEL CODER procedure are in the results section. POCT-GLUCOSE METER Routine 09/26/2017 9:33 Results for this PM LABEL CODER procedure are in the results section. POCT-GLUCOSE METER Routine 09/26/2017 6:11 Results for this PM LABEL CODER procedure are in the results section. ECHOCARDIOGRAM REPORT - 09/26/2017 4:59 SCAN PM LABEL CODER POCT-GLUCOSE METER Routine 09/26/2017 1:49 Results for this PM LABEL CODER procedure are in the results section. 2D ECHO W/ DOPPLER ELADIO 09/26/2017 11:38 Results for this (CW/PW/COLOR) AM LABEL [facility]ER procedure are in the results section. PT/APTT STAT 09/26/2017 11:10 Results for this AM LABEL [facility]ER procedure are in the results section. PLATELET COUNT STAT 09/26/2017 11:10 Results for this AM LABEL [facility]ER procedure are in the results section. PROTEIN, TOTAL Routine 09/26/2017 11:10 Results for this AM LABEL [facility]ER procedure are in the results section. LACTATE DEHYDROGENASE Routine 09/26/2017 11:10 Results for this (LDH) AM LABEL C[facility]ER procedure are in the results section. POCT-GLUCOSE METER Routine 09/26/2017 8:26 Results for this AM LABEL CODER procedure are in the results section. MAGNESIUM Routine 09/26/2017 4:48 Results for this AM LABEL CODER procedure are in the results section. BASIC METABOLIC PANEL Routine 09/26/2017 4:48 Results for this (7) AM LABEL CODER procedure are in the results section. POCT-GLUCOSE METER Routine 09/25/2017 9:10 Results for this PM LABEL [facility]ER procedure are in the results section. XR CHEST 2 VIEWS Routine 09/25/2017 6:37 Results for this PM LABEL CODER procedure are in the results section. POCT-GLUCOSE METER Routine 09/25/2017 5:18 Results for this PM LABEL [facility]ODER procedure are in the results section. POCT-GLUCOSE METER Routine 09/25/2017 11:49 Results for this AM LABEL [facility]ODER procedure are in the results section. POCT-GLUCOSE METER Routine 09/25/2017 7:18 Results for this AM LABEL CODER procedure are in the results section. MAGNESIUM Routine 09/25/2017 5:47 Results for this AM LABEL [facility]ODER procedure are in the results section. BASIC METABOLIC PANEL Routine 09/25/2017 5:47 Results for this (7) AM LABEL CODER procedure are in the results section. POCT-GLUCOSE METER Routine 09/24/2017 9:13 Results for this PM LABEL [facility]ODER procedure are in the results section. POCT-GLUCOSE METER Routine 09/24/2017 6:47 Results for this PM LABEL [facility]ODER procedure are in the results section. POCT-GLUCOSE METER Routine 09/24/2017 4:41 Results for this PM LAB[facility]ER procedure are in the results section. CREATININE, RANDOM Routine 09/24/2017 4:18 Results for this URINE PM LABEL [facility]ODER procedure are in the results section. PROTEIN, RANDOM URINE Routine 09/24/2017 4:18 Results for this PM LABEL [facility]ER procedure are in the results section. NM CARDIAC PET STAT 09/24/2017 2:57 Results for this PERFUSION REST AND/OR PM LABEL [facility]ODER procedure are in STRESS the results section. TREADMILL Routine 09/24/2017 2:52 Results for this TOLERANCE(NON-NUCLEAR PM LABEL CODER procedure are in TREADMILL) the results section. POCT-GLUCOSE METER Routine 09/24/2017 10:13 Results for this AM LABEL [facility]ER procedure are in the results section. POCT-GLUCOSE METER Routine 09/24/2017 7:23 Results for this AM LABEL [facility]ER procedure are in the results section. MAGNESIUM Routine 09/24/2017 4:21 Results for this AM LABEL [facility]ER procedure are in the results section. BASIC METABOLIC PANEL Routine 09/24/2017 4:21 Results for this (7) AM LAB[facility]ER procedure are in the results section. VANCOMYCIN LEVEL, Routine 09/24/2017 4:21 Results for this RANDOM AM LABEL [facility]ER procedure are in the results section. US RENAL COMPLETE Routine 09/23/2017 10:02 Results for this PM [facility]ER procedure are in the results section. POCT-GLUCOSE METER Routine 09/23/2017 9:17 Results for this PM LABEL [facility]ER procedure are in the results section. POCT-GLUCOSE METER Routine 09/23/2017 4:57 Results for this PM LABEL [facility]ER procedure are in the results section. CREATININE, RANDOM Routine 09/23/2017 12:14 Results for this URINE PM LABEL [facility]ODER procedure are in the results section. SODIUM, RANDOM URINE Routine 09/23/2017 12:14 Results for this PM LABEL [facility]ER procedure are in the results section. URINALYSIS W/ REFLEX Routine 09/23/2017 12:14 Results for this URINE CULTURE PM LABEL C[facility]ER procedure are in the results section. POCT-GLUCOSE METER Routine 09/23/2017 11:33 Results for this AM LABEL [facility]ER procedure are in the results section. POCT-GLUCOSE METER Routine 09/23/2017 7:12 Results for this AM LABEL [facility]ER procedure are in the results section. CBC W/PLT COUNT & AUTO Routine 09/23/2017 5:37 Results for this DIFFERENTIAL AM LABEL [facility]ER procedure are in the results section. CBC W/PLT COUNT & AUTO Routine 09/23/2017 5:37 Results for this DIFFERENTIAL AM LABEL [facility]ER procedure are in the results section. VANCOMYCIN LEVEL, Routine 09/23/2017 5:37 Results for this RANDOM AM LABEL C[facility]ER procedure are in the results section. MAGNESIUM Routine 09/23/2017 5:37 Results for this AM LABEL CODER procedure are in the results section. BASIC METABOLIC PANEL Routine 09/23/2017 5:37 Results for this (7) AM LABEL [facility]ER procedure are in the results section. POCT-GLUCOSE METER Routine 09/22/2017 9:06 Results for this PM LABEL CODER procedure are in the results section. POCT-GLUCOSE METER Routine 09/22/2017 5:32 Results for this PM LABEL [facility]ODER procedure are in the results section. POCT-GLUCOSE METER Routine 09/22/2017 11:50 Results for this AM LABEL C[facility]ER procedure are in the results section. POCT-GLUCOSE METER Routine 09/22/2017 7:37 Results for this AM LABEL [facility]ER procedure are in the results section. CBC W/PLT COUNT & AUTO Routine 09/22/2017 4:44 Results for this DIFFERENTIAL AM LABEL [facility]ER procedure are in the results section. MYCOPLASMA PNEUMONIAE Routine 09/22/2017 4:44 Results for this ANTIBODY, IGM AM LABEL C[facility]ER procedure are in the results section. MYCOPLASMA PNEUMONIAE Routine 09/22/2017 4:44 Results for this ANTIBODY, IGG AM LAB[facility]ER procedure are in the results section. CMV PCR, QUANTITATIVE Routine 09/22/2017 4:44 Results for this AM LABEL [facility]ER procedure are in the results section. VANCOMYCIN LEVEL, Routine 09/22/2017 4:44 Results for this RANDOM AM LABEL [facility]ER procedure are in the results section. MAGNESIUM Routine 09/22/2017 4:44 Results for this AM LABEL CODER procedure are in the results section. BASIC METABOLIC PANEL Routine 09/22/2017 4:44 Results for this (7) AM LABEL [facility]ODER procedure are in the results section. CBC W/PLT COUNT & AUTO Routine 09/22/2017 4:44 Results for this DIFFERENTIAL AM LABEL CODER procedure are in the results section. POCT-GLUCOSE METER Routine 09/21/2017 9:07 Results for this PM LABEL [facility]ER procedure are in the results section. POCT-GLUCOSE METER Routine 09/21/2017 4:53 Results for this PM LAB[facility]ER procedure are in the results section. BRONCHIAL CULTURE + STAT 09/21/2017 12:52 Results for this GRAM STAIN PM LABEL [facility]ER procedure are in the results section. SPIN/CONCENTRATION Routine 09/21/2017 12:49 Results for this CHARGE PM LABEL C[facility]ER procedure are in the results section. FUNGUS CULTURE + SMEAR STAT 09/21/2017 12:49 Results for this PM LAB[facility]ER procedure are in the results section. AFB CULTURE + SMEAR STAT 09/21/2017 12:49 Results for this PM LABEL C[facility]ER procedure are in the results section. POCT-GLUCOSE METER Routine 09/21/2017 12:28 Results for this PM LABEL [facility]ER procedure are in the results section. BLOOD GAS, ARTERIAL STAT 09/21/2017 11:02 Results for this AM LAB[facility]ER procedure are in the results section. XR CHEST 1 VIEW STAT 09/21/2017 9:15 Results for this PORTABLE/BEDSIDE AM LABEL C[facility]ER procedure are in the results section. POCT-GLUCOSE METER Routine 09/21/2017 8:38 Results for this AM LABEL [facility]ER procedure are in the results section. CBC W/PLT COUNT & AUTO Routine 09/21/2017 5:18 Results for this DIFFERENTIAL AM LABEL C[facility]ER procedure are in the results section. MAGNESIUM Routine 09/21/2017 5:18 Results for this AM LABEL [facility]ER procedure are in the results section. CBC W/PLT COUNT & AUTO Routine 09/21/2017 5:18 Results for this DIFFERENTIAL AM LABEL C[facility]ER procedure are in the results section. BASIC METABOLIC PANEL STAT 09/21/2017 5:18 Results for this (7) AM LABEL [facility]ER procedure are in the results section. XR CHEST 1 VIEW STAT 09/21/2017 3:34 Results for this PORTABLE/BEDSIDE AM LABEL C[facility]ER procedure are in the results section. POCT-GLUCOSE METER Routine 09/20/2017 10:11 Results for this PM [facility]ER procedure are in the results section. ECHOCARDIOGRAM REPORT - 09/20/2017 5:15 SCAN PM LABEL [facility]ER POCT-GLUCOSE METER Routine 09/20/2017 5:09 Results for this PM LABEL [facility]ER procedure are in the results section. LEGIONELLA URINE Routine 09/20/2017 3:30 Results for this ANTIGEN PM LABEL CODER procedure are in the results section. 2D ECHO MODE W/O ELADIO 09/20/2017 1:08 Results for this DOPPLER PM LABEL CODER procedure are in the results section. POCT-GLUCOSE METER Routine 09/20/2017 11:39 Results for this AM LABEL [facility]ER procedure are in the results section. PROCALCITONIN Routine 09/20/2017 10:04 Results for this AM LABEL CODER procedure are in the results section. POCT-GLUCOSE METER Routine 09/20/2017 9:11 Results for this AM LABEL [facility]ER procedure are in the results section. POCT-GLUCOSE METER Routine 09/20/2017 8:26 Results for this AM LAB[facility]ER procedure are in the results section. LACTIC ACID, VENOUS, Routine 09/20/2017 8:04 Results for this WHOLE BLOOD AM LABEL [facility]ER procedure are in the results section. HEMOGLOBIN A1C Routine 09/20/2017 8:04 Results for this AM LAB[facility] procedure are in the results section. B-TYPE NATRIURETIC Routine 09/20/2017 8:04 Results for this FACTOR (BNP) AM LABEL [facility]ER procedure are in the results section. STREP PNEUMONIAE Routine 09/20/2017 6:09 Results for this ANTIGEN AM LABEL C[facility]ER procedure are in the results section. (MANUAL DIFFERENTIAL) Routine 09/20/2017 3:01 Results for this AM LABEL [facility]ER procedure are in the results section. CBC W/PLT COUNT & AUTO Routine 09/20/2017 3:01 Results for this DIFFERENTIAL AM LABEL C[facility]ER procedure are in the results section. PHOSPHORUS Routine 09/20/2017 3:01 Results for this AM LABEL C[facility]ER procedure are in the results section. MAGNESIUM Routine 09/20/2017 3:01 Results for this AM LABEL [facility]ER procedure are in the results section. CREATINE KINASE (CK), STAT 09/20/2017 3:01 Results for this TOTAL AND MB AM LABEL [facility]ER procedure are in the results section. TROPONIN I STAT 09/20/2017 3:01 Results for this AM LABEL [facility]ER procedure are in the results section. FERRITIN Routine 09/20/2017 3:01 Results for this AM LABEL [facility]ER procedure are in the results section. IRON, TIBC, % SAT. Routine 09/20/2017 3:01 Results for this (WITHOUT FERRITIN) AM LABEL [facility]ER procedure are in the results section. BASIC METABOLIC PANEL Routine 09/20/2017 3:01 Results for this (7) AM LABEL [facility]ER procedure are in the results section. CBC W/PLT COUNT & AUTO Routine 09/20/2017 3:01 Results for this DIFFERENTIAL AM LABEL [facility]ER procedure are in the results section. RESPIRATORY PANEL [facility] ELADIO 09/20/2017 3:01 Results for this AM LABEL [facility]ER procedure are in the results section. ECG 12-LEAD Routine 09/20/2017 2:43 AM LABEL CODER Procedure Note - Interface, External Ris In - 09/20/2017 2:52 AM LABEL CODER Ventricular Rate 79 BPM Atrial Rate 79 BPM P-R Interval 192 ms QRS Duration 152 ms Q-T Interval 456 ms QTC Calculation(Bazett) 522 ms P Rio 59 degrees R Rio -15 degrees T Rio 87 degrees Normal sinus rhythm Left bundle branch block Abnormal ECG No previous ECGs available ECG 12-LEAD STAT 09/20/2017 2:43 AM LABEL CODER POCT-GLUCOSE METER Routine 09/20/2017 12:49 AM LABEL CODER BLOOD CULTURE Routine 09/20/2017 12:43 AM LABEL CODER BLOOD CULTURE Routine 09/20/2017 12:43 AM LABEL CODER XR CHEST 1 VIEW STAT 09/20/2017 12:04 AM LABEL CODER Results for this procedure PORTABLE/BEDSIDE are in the results section. after 09/20/2017 Results EKG-SCANNED (09/29/2017 1:53 PM LABEL CODER) Narrative Performed At RHYTHM STRIP - SCAN (09/29/2017 1:53 PM LABEL CODER) Narrative Performed At ECHOCARDIOGRAM REPORT - SCAN (09/28/2017 1:50 PM LABEL CODER) Narrative Performed At POC-Glucose meter (09/28/2017 11:52 AM LABEL CODER)Only the most recent of37 resultswithin the time period is included. POC-Glucose Meter 181 (H)Comment: TESTED AT 70 - 110 mg/dL [facility] [address] [facility] [address] Specimen Blood Performing Organization Address City/State/Zipcode Phone Number [facility] [address] [place] [address] CENTER Faye (Attention: Tameka Luna, Micro Lab) (09/28/2017 6:09 AM LABEL CODER) Scan Result [facility] Specimen Blood - Vein Narrative Performed At Performing Organization Address City/State/Zipcode Phone Number [facility] [address] [place], [place] Magnesium (09/28/2017 6:09 AM LABEL CODER)Only the most recent of9 resultswithin the time period is included. Magnesium 1.7 1.6 - 2.6 mg/dL [facility] Specimen Blood Performing Organization Address City/[facility]/Zipcode Phone Number [place] [phone] [place] [address] [phone] [place] Basic Metabolic Panel (09/28/2017 6:09 AM LABEL CODER)Only the most recent of9 resultswithin the time period is included. Sodium 135 (L) 136 - 145 meq/L [facility] Potassium 4.3 3.5 - 5.1 meq/L [facility] Chloride 106 98 - 107 meq/L [facility] CO2 19 (L) 22 - 29 meq/L [facility] BUN 49 (H) 7 - 21 mg/dL [facility] Creatinine 3.42 (H) 0.57 - 1.25 mg/dL [facility] Glucose 109 (H) 70 - 105 mg/dL [facility] Calcium 9.4 8.4 - 10.2 mg/dL [facility] EGFR 14Comment: ESTIMATED GFR IS mL/min/1.73 sq m [facility] NOT ACCURATE [facility] CLEARANCE IN PREDICTING GLOMERULAR FILTRATION RATE. ESTIMATED GFR IS NOT APPLICABLE FOR DIALYSIS PATIENTS. Specimen Blood Performing Organization Address [facility] Cent[facility]ode Phone Number [facility] [address] [place] [address] [place] Body fluid culture + gram stain (09/27/2017 7:36 PM LABEL CODER) Result No growth [facility] Gram Stain Result No White blood cells seen [facility] Gram Stain Result No organisms seen [facility] Specimen Body Fluid - Pleural, Right Performing Organization Address [facility] Centerconj Phone Number [facility] [address] [place] [phone] [place] Body fluid cell count with differential (09/27/2017 7:36 PM LABEL CODER) Appearance Bloody (A) Clear [facility] Color Pita (A) Colorless, Straw [facility] RBCs 10,000 (H) <=1 /cu mm [facility] Adjusted WBC Count 3,032 (H) <=5 /cu mm [facility] Lining Cells 121 (H) <=1 /cu mm [facility] % Segs 32 % [facility] % Lymphs 6 % [facility] % Monos 60 % [facility] % Eos 2 % [facility] % Baso 0 % [facility] Container Body Fluid EDTA Tube [facility] Specimen Body Fluid - Pleural, Right Performing Organization Address [facility]/Zipcode Phone Number [facility] [address] [place] [address] [phone] [place] Protein, body fluid (09/27/2017 7:36 PM LABEL CODER) Protein, Fluid 3.6 Light's criteria identifies [facility] effusions if one or more are MEDICAL CENTER present: Pleural to serum protein ratio of more than 0.5; Pleural to Serum LDH of more than 0.6; Pleural LDH of more than two third of upper serum reference limit g/dL Specimen Body Fluid - Pleural, Right Narrative Performed At [facility] Absence of reference range indicates that normals have not been defined. Assay performance has not been validated for this type of specimen. Performing Organization Address City/[facility]/Zipcode Phone Number [address] [address] CENTER Lactate dehydrogenase (LDH), body fluid (09/27/2017 7:36 PM LABEL CODER) LDH, Fluid 234 Light's criteria identifies [facility] MEDICAL effusions if one or more are CENTER present: Pleural to serum protein ratio of more than 0.5; Pleural to serum LDH ratio of more than 0.6; Pleural LDH more than two third of upper serum reference limit U/L Specimen Body Fluid - Pleural, Right Narrative Performed At [facility] Absence of reference range indicates that normals have not been defined. Assay performance has not been validated for this type of specimen. Performing Organization Address City/[facility] Centercode Phone Number [address] [address] [phone] CENTER Limited 2D Echocardiogram (09/27/2017 6:59 PM LABEL CODER) Ejection Fraction [facility] ECHO [facility] Narrative Performed At Transthoracic Echocardiography Report (TTE) [facility] Demographics Patient Name Ann ZIEGLER of Study 09/27/2017 [id number] GenderFemale Visit Number [id number] RaceUnknown [id number] m Number [id number] Number Date of Birth1955 Referring Physician Anastacio Rutledge MD Age62 year(s) [employer] Shrinker [place] Deal [facility] Carol Dunne MD RD Physician Procedure Type of Study [...] External Ris In - 09/28/2017 1:03 PM LABEL CODER Transthoracic Echocardiography Report (TTE) Demographics Patient Name MIKE ZIEGLER Date of Study 09/27/2017 Gender Female Visit Number [id number] Race Unknown Room Number 926 Number Date of 1955 Referring Physician Anastacio Rutledge MD Age 62 year(s) [employer] [facility] Composite Worker Aure Tarango, Interpreting Zbigniew Fortune MD [facility] Physician Procedure Type of Study TTE procedure:LIMITED [...] LVOT Area: 4.08 cm^2 Performing Organization Address City/State/Zipcode Phone Number [facility] ECHO [facility] thoracentesis (09/27/2017 4:15 PM LABEL CODER) Narrative Performed At FINAL REPORT [employer] Ultrasound guided right thoracentesis Clinical History:Pleural effusion [...] manner.After the area is anesthetized, a 4 Citizen [place] catheter is advanced into the pleural space. [...] MD Report Verified Date/Time:09/27/2017 17:19:37 Reading Location: [address] Ultrasound Reading Room Procedure Note Interface, External Ris In - 09/27/2017 5:21 PM LABEL CODER FINAL REPORT Ultrasound guided right thoracentesis Clinical [...] After the area is anesthetized, a 4 Citizen [place] catheter is advanced into the pleural space. [...] Report Verified Date/Time: 09/27/2017 17:19:37 Reading Location: [facility] B1 [id number] Ultrasound Reading Room Performing Organization Address City/State/Zipcode Phone Number [facility] XR chest 1 view portable / bedside (09/27/2017 4:10 PM LABEL CODER)Only the most recent of5 resultswithin the time period is included. Narrative Performed At FINAL REPORT [facility] AP chest HISTORY: Thoracentesis COMPARISON: 09/27/2017 IMPRESSION: Intact skeleton. Cardiac silhouette mildly enlarged. Mild interstitial prominence, similar to previous. Right effusion appears decreased. No pneumothorax. Signed: Tari Lea MD Report Verified Date/Time:09/27/2017 16:21:56 Reading Location: [facility] Mammo Reading Room Procedure Note Interface, External Ris In - 09/27/2017 4:24 PM LABEL CODER FINAL REPORT AP chest HISTORY: Thoracentesis COMPARISON: 09/27/2017 IMPRESSION: Intact skeleton. Cardiac silhouette mildly enlarged. Mild interstitial prominence, similar to previous. Right effusion appears decreased. No pneumothorax. Signed: Tari Lea MD Report Verified Date/Time: 09/27/2017 16:21:56 Reading Location: [facility] Mammo Reading Room Performing Organization Address City/[facility] Centercode Phone Number [facility] Vitamin B12 and Folate (09/27/2017 4:54 AM LABEL CODER) Vitamin B12 >2000 (H) 213 - 816 pg/mL [facility] Folate 13.3 >=7.0 ng/mL [facility] Specimen Blood Performing Organization Address City/State/Zipcode Phone Number [facility] MEDICAL [address] [place] [phone] CENTER ECHOCARDIOGRAM REPORT - SCAN (09/26/2017 4:59 PM LABEL CODER) Narrative Performed At 2D Echo W/Doppler(CW/PW/Color) (09/26/2017 11:38 AM LABEL CODER) Ejection Fraction [facility]CHO [facility] Narrative Performed At Transthoracic Echocardiography Report (TTE) [facility] ECHO HEARTLAB CKESSON [facility] Demographics Patient NameMIKE ZIEGLER Date of Study09/26/2017 Female Visit [id number] Unknown Room [id number] Number Date of 1955Referring Physicianvickey Rutledge MD Age 62 year(s)[employer] Tamir Gill, [facility] Composite Worker Aure Tarango, Interpreting Trevor Tristan MD RDCSPhysician Procedure Type of Study TTE procedure:2DECHO W DOPPLER(CW/PW/COLOR) ([place]IO) Indications:Suspected Pericardial conditions. Clinical History ASTHMA, COPD, OBESITY, LBBB, CAD, A.FIB. HTN, CHF, STROKE Contrast Medium: Definity. Amount - 2 ml Height: 66 inches Weight: 120.66 kg (266.01 lbs) BSA: 2.26 m^2 BMI: 42.93 kg/m^2 HR: 96 bpm BP: 146/65 mmHg Summary A xerbb-dq-judejcye pericardial effusion is present . The pericardial effusion is circumferential . The pericardial effusion measures 2.8 cm by the right atrium in the subcostal view. NO signs of tamponacde LV endocardium is adequately visualized with IV ultrasound enhancing agent. The left ventricle is chamber size (by vol index) is mildly enlarged (female - LVED 62-70ml/m2). Qitm-dg-nccaqrih concentric LV hypertrophy. All of the LV [...] mildly enlarged (female - LVED 62-70ml/m2). Mi gn-cp-qiwrsxqw concentric LV hypertrophy. Al l of the [...] Valsalva diameter) is no rmal . PericardiumA vldsd-db-rpeoaofi pericardial effusion is present . Th e [...] External Ris In - 09/26/2017 4:07 PM LABEL CODER Transthoracic Echocardiography Report (TTE) Demographics Patient Name MIKE ZIEGLER Date of Study 09/26/2017 Gender Female Visit Number [id number] Race Unknown Room Number 926 Number Date of 1955 Referring Physician vickey Rutledge MD Age 62 year(s) [employer] Tamir Gill, [facility] Composite Worker Aure Tarango, Interpreting Trevor Tristan MD [facility] Physician Procedure Type of Study TTE procedure:2DECHO W DOPPLER(CW/PW/COLOR) (ELADIO) Indications:Suspected Pericardial conditions. Clinical History ASTHMA, COPD, OBESITY, LBBB, CAD, A.FIB. HTN, CHF, STROKE Contrast Medium: Definity. Amount - 2 ml Height: 66 inches Weight: 120.66 kg (266.01 lbs) BSA: 2.26 m^2 BMI: 42.93 kg/m^2 HR: 96 bpm BP: 146/65 mmHg Summary A wvqrb-mk-zroevenb pericardial effusion is present . The pericardial effusion is circumferential . The pericardial effusion measures 2.8 cm by the right atrium in the subcostal view. NO signs of tamponacde LV endocardium is adequately visualized with IV ultrasound enhancing agent. The left ventricle is chamber size (by vol index) is mildly enlarged (female - LVED 62-70ml/m2). Zrvf-nx-ehjsxcnh concentric LV hypertrophy. All of the LV [...] is mildly enlarged (female - LVED 62-70ml/m2). Kanh-sa-sjsiehcf concentric LV hypertrophy. All of the LV [...] Valsalva diameter) is normal . Pericardium A nmqbb-zs-abnvangv pericardial effusion is present . The pericardial [...] LVOT CI: 3.37 l/min/m^2 Performing Organization Address [facility] Phone Number [facility] ECHO HEARTLAB MKCKESSON CPACS PT/aPTT (09/26/2017 11:10 AM LABEL CODER) Protime 14.5 11.7 - 14.7 seconds [facility] INR 1.1 <=5.9 [facility] PTT 39.2 (H) 22.5 - 36.0 seconds [facility] Specimen Blood - Arm, Left Narrative Performed At [facility] RECOMMENDED COUMADIN/WARFARIN INR THERAPY RANGES STANDARD DOSE: 2.0 - 3.0 Includes: PROPHYLAXIS for venous thrombosis, systemic embolization; TREATMENT for venous thrombosis and/or pulmonary embolus. HIGH RISK: Target INR is 2.5-3.5 for patients with mechanical heart valves. Performing Organization Address City/[facility] Centercode Phone Number [place] [phone] [place] [address] CENTER Platelet count (09/26/2017 11:10 AM LABEL CODER) Platelets 501 (H) 150 - 450 K/CU MM [facility] Specimen Blood - Arm, Left Performing Organization Address [facility]/Zipcode Phone Number [address] [address] CENTER Protein, total (09/26/2017 11:10 AM LABEL CODER) Protein, Total 6.1 6.0 - 8.3 gm/dL [facility] Specimen Blood - Arm, Left Performing Organization Address [facility] Phone Number [address] [address] CENTER Lactate dehydrogenase (LDH) (09/26/2017 11:10 AM LABEL CODER) LDH 309 (H) 125 - 220 U/L [facility] Specimen Blood - Arm, Left Performing Organization Address [facility] Phone Number [address] [phone] [place] XR chest 2 views (09/25/2017 6:37 PM LABEL CODER) Narrative Performed At FINAL REPORT GE RIS Examination: Two view Chest X-ray. CLINICAL HISTORY: [...] MD Report Verified Date/Time:09/25/2017 19:38:01 Reading Location: [address] Reading Room Procedure Note Interface, External Ris In - 09/25/2017 7:40 PM LABEL CODER FINAL REPORT Examination: Two view Chest X-ray. [...] Report Verified Date/Time: 09/25/2017 19:38:01 Reading Location: [address] Reading Room Performing Organization Address City/State/[facility] Centercode Phone Number GE RIS Protein, random urine (09/24/2017 4:18 PM LABEL CODER) Protein, Urine 154 (H) 0 - 14 mg/dL [facility] Specimen Urine Performing Organization Address [facility] Phone Number [address] [address] CENTER Creatinine, random urine (09/24/2017 4:18 PM LABEL CODER)Only the most recent of2 resultswithin the time period is included. Creatinine, Ur 88.8 mg/dL [facility] Specimen Urine Narrative Performed At [facility] Reference Range: No Normals Performing Organization Address City/[facility] Phone Number [address] [address] [phone] [place] NM myocardial perfusion PET (rest and stress) (09/24/2017 2:57 PM LABEL CODER) Narrative Performed At FINAL REPORT GE Behalf PROCEDURE:Rest/Stress MYOCARDIAL PERFUSION PET with regadenoson\\XA9\\ CPT CODE:13461 INDICATION:Chest pain, hypokinesis on echo HISTORY:Cardiac risk [...] Extracardiac tracer distribution is normal.6. No previous [facility] study for comparison. NONINVASIVE RISK STRATIFICATION: The above findings are considered low risk based on the following criteria: 1)Normal or small myocardial perfusion defect at rest or with stress (JACC. 2012;59(9):857-81.) Signed: Selvin Braswell MD Report Verified Date/Time:09/24/2017 16:36:36 Procedure Note Interface, External Ris In - 09/24/2017 4:38 PM LABEL CODER FINAL REPORT PROCEDURE: Rest/Stress MYOCARDIAL PERFUSION PET with regadenoson\\XA9\\ CPT CODE: 01976 INDICATION: Chest pain, hypokinesis on echo HISTORY: [...] tracer distribution is normal. 6. No previous [facility] study for comparison. NONINVASIVE RISK STRATIFICATION: The above findings are considered low risk based on the following criteria: 1)Normal or small myocardial perfusion defect at rest or with stress (JACC. 2012;59(9):857-99.) Signed: Selvin Braswell MD Report Verified Date/Time: 09/24/2017 16:36:36 Performing Organization Address City/State/Zipcode Phone Number GE RIS Treadmill tolerance(Non-Nuclear Treadmill) (09/24/2017 2:52 PM LABEL CODER) Narrative Performed At Protocol Name Regromyosanjali GE MUSE Time In Exercise Phase 00:01:00 [...] 11:19:37 AM Confirmed by MD CABRERA JORGE ([id number]) on 09/28/2017 4:43:16 PM Procedure Note Interface, External Ris In - 09/28/2017 4:43 PM LABEL CODER Protocol Name Regadenoson Time In Exercise Phase [...] 11:19:37 AM Confirmed by MD CABRERA JORGE ([id number]) on 09/28/2017 4:43:16 PM Performing Organization Address City/State/Zipcode Phone Number GE MUSE Vancomycin level, random (09/24/2017 4:21 AM LABEL CODER)Only the most recent of3 resultswithin the time period is included. Vancomycin Rm 16.6 ug/mL [facility] Specimen Blood Narrative Performed At [facility] Reference Range: No Normals Performing Organization Address City/State/Zipcode Phone Number [facility] [address] [place] [address] CENTER US renal complete (09/23/2017 10:02 PM LABEL CODER) Narrative Performed At FINAL REPORT RIS U/S, RENAL, COMPLETE CLINICAL INDICATION:"Elevated creatinine" COMPARISON: [...] MD Report Verified Date/Time:09/23/2017 22:13:52 Reading Location: [facility] [id number] Ortho Consult Reading Room Procedure Note Interface, External Ris In - 09/23/2017 10:16 PM LABEL CODER FINAL REPORT U/S, RENAL, COMPLETE CLINICAL INDICATION: [...] Report Verified Date/Time: 09/23/2017 22:13:52 Reading Location: [facility] B1 C013X Ortho Consult Reading Room Performing Organization Address City/State/Zipcode Phone Number RIS Urinalysis w/Microscopic + Reflex to Culture (09/23/2017 12:14 PM LABEL CODER) Color, UA Yellow [facility] Clarity, UA Hazy [facility] Specific Critz, UA 1.010 1.001 - 1.035 [facility] pH, UA 5.5 5.0 - 8.0 [facility] Protein, UA 100 mg/dL (A) Negative [facility] Glucose, UA 30 mg/dL (A) Negative [facility] Ketones, UA Negative Negative [facility] Bilirubin, UA Negative Negative [facility] Blood, UA Negative Negative [facility] Nitrite, UA Negative Negative [facility] Leukocytes, UA Negative Negative [facility] Urobilinogen, UA 0.2 0.2 - 1.0 mg/dL [facility] RBC, UA 0 /HPF [facility] WBC, UA 1 /HPF [facility] Bacteria, UA Occasional [facility] Mucus Rare [facility] Squam Epithel, UA 11 /HPF [facility] Yeast Rare [facility] Specimen Source [facility] Specimen Urine - Urine, Clean Catch Performing Organization Address City/[facility]/Zipcode Phone Number [address] [address] [place] Sodium, random urine (09/23/2017 12:14 PM LABEL CODER) Sodium Urine 31 meq/L [facility] Specimen Urine - Urine, Clean Catch Narrative Performed At [facility] Reference Range: No Normals Performing Organization Address City/[facility]/Zipcode Phone Number [address] [address] [phone] CENTER CBC with platelet count + automated diff (09/23/2017 5:37 AM LABEL CODER)Only the most recent of4 resultswithin the time period is included. WBC 12.7 (H) 3.5 - 10.5 K/L [facility] RBC 2.61 (L) 3.93 - 5.22 M/L [facility] Hemoglobin 7.9 (L) 11.2 - 15.7 GM/DL [facility] Hematocrit 24.7 (L) 34.1 - 44.9 % [facility] MCV 94.6 79.4 - 94.8 fL [facility] MCH 30.3 25.6 - 32.2 pg [facility] MCHC 32.0 (L) 32.2 - 35.5 GM/DL [facility] RDW 14.2 11.7 - 14.4 % [facility] Platelets 466 (H) 150 - 450 K/CU MM [facility] MPV 10.6 9.4 - 12.3 fL [facility] nRBC 0 0 - 0 /100 WBC [facility] % Neutros 64 % [facility] % Lymphs 17 % [facility] % Monos 11 % [facility] % Eos 7 % [facility] % Baso 0 % [facility] # Neutros 8.16 (H) 1.56 - 6.13 K/L [facility] # Lymphs 2.14 1.18 - 3.74 K/L [facility] # Monos 1.35 (H) 0.24 - 0.36 K/L [facility] # Eos 0.83 (H) 0.04 - 0.36 K/L [facility] # Baso 0.04 0.01 - 0.08 K/L [facility] Immature Granulocytes-Relative 2 (H) 0 - 1 % [facility] Specimen Blood Performing Organization Address City/State/Zipcode Phone Number [facility] [address] [place] [address] [place] CMV PCR, quantitative (09/22/2017 4:44 AM LABEL CODER) CMV DNA Viral Load Negative or below the linear [facility] range of the assay (<375 [facility] copies/mL) Specimen Blood - Arm, Right Narrative Performed At Cytomegalovirus (CMV) infection can cause [facility] significant disease in immunosuppressed patients. [...] Improvement Amendments of 1988. Performing Organization Address City/[facility]/Zipcode Phone Number [facility] [address] [place] [address] [place] Mycoplasma pneumoniae antibody, IgM (09/22/2017 4:44 AM LABEL CODER) M. pneumoniae Ab IgM, 139 U/mL [facility] [...] - Arm, Right Narrative Performed At Performing [employer] *[employer] [address] [place] [address] Matthew Wolff MD Performing Organization Address [facility] [place] [address] [employer] [address] [facility] Mycoplasma pneumoniae antibody, IgG (09/22/2017 4:44 AM LABEL CODER) Mycoplasma Igg < or=0.90 [facility] [...] - Arm, Right Narrative Performed At Performing [employer] [facility] *[employer] [address] [place] [address] Matthew Wolff MD Performing Organization Address [facility] Center[facility] [place] [address] [employer] [address] [facility] Bronchial culture + gram stain (09/21/2017 12:52 PM LABEL CODER) Result No growth [facility] Gram Stain Result <1+ WBCs [facility] Gram Stain Result No organisms seen [facility] Specimen BAL - Lung, Right Middle Lobe Performing Organization Address [facility] Centercode Phone Number [address] [place] [address] CENTER SPIN/CONCENTRATION CHARGE (09/21/2017 12:49 PM LABEL CODER) Concentration charged Done [facility] Specimen Body Fluid - BAL Performing Organization Address [facility]/Zipcode Phone Number [address] [address] [place] AFB culture + smear (09/21/2017 12:49 PM LABEL CODER) Result No acid-fast bacilli isolated in [facility] 42 days CENTER [employer] Smear No acid fast bacilli seen [facility] Specimen Body Fluid - BAL Performing Organization Address City/[facility]/Zipcode Phone Number [address] [address] [place] Fungus culture + smear (09/21/2017 12:49 PM LABEL CODER) Result No fungus isolated in 28 days [facility] Fungus Smear No fungi seen [facility] Specimen BAL - Lung, Right Middle Lobe Performing Organization Address [facility]/Zipcode Phone Number [address] [address] [place] Blood gas, arterial (09/21/2017 11:02 AM LABEL CODER) pH, Arterial 7.43 7.35 - 7.45 [facility] pCO2, Arterial 32 (L) 35 - 45 mmHg [facility] pO2, Arterial 226 (H) 80 - 90 mmHg [facility] O2 Sat, Arterial 99.5 (H) 96.0 - 97.0 % [facility] HCO3, Arterial 21 21 - 29 mmol/L [facility] Base Excess, Arterial -3.3 (L) -2.0 - 3.0 mmol/L [facility] Patient Temperature 36.9 C [facility] FIO2 60.0 % [facility] Specimen Blood, Arterial - Arm, Right Performing Organization Address City/[facility]/Zipcode Phone Number [address] [phone] [place] ECHOCARDIOGRAM REPORT - SCAN (09/20/2017 5:15 PM LABEL CODER) Narrative Performed At Legionella antigen, urine (09/20/2017 3:30 PM LABEL CODER) Legionella Urine Antigen Negative - see [facility] commentComment: Negative [facility] for L. pneumophila serogroup 1 antigen, suggesting no recent or current infection with this serogroup. Legionellosis cannot be ruled out since other serogroups and species may cause disease. Specimen Urine - Urine, Sterile Collection Performing Organization Address City/[facility] Phone Number [address] [address] [phone] [place] 2D Echo W/O Doppler(No Doppler) (09/20/2017 1:08 PM LABEL CODER) Ejection Fraction [facility] ECHO HEARTLAB MKCKESSON [facility] Narrative Performed At Transthoracic Echocardiography Report (TTE) [facility] Demographics Patient NameMIKE ZIEGLER Date of Study09/20/2017 Female Visit [id number] Unknown Room [id number] Number Date of 1955Referring Sebastian minaya Age 62 year(s)[employer] Rahel Marrero Composite Worker Aure Tarango, Interpreting Aleisha De Paz MD [...] Global LV systolic function normal . A tcmww-gu-hpsgkamz pericardial effusion is present . The pericardial [...] Valsalva diameter) is no rmal . PericardiumA oqygu-uk-fhssqktx pericardial effusion is present . Th e [...] External Ris In - 09/20/2017 4:09 PM LABEL CODER Transthoracic Echocardiography Report (TTE) Demographics Patient Name MIKE ZIEGLER Date of Study 09/20/2017 Gender Female Visit Number [id number] Race Unknown Room Number 7215 Number Date of 1955 Referring Physician vickey minaya Age 62 year(s) [employer] Rahel Marrero Composite Worker Aure Tarango, Interpreting Aleisha De Paz MD [facility] Physician Procedure Type of Study TTE procedure:ECHO2D [...] Global LV systolic function normal . A uppwv-vg-ifneytdm pericardial effusion is present . The pericardial [...] Valsalva diameter) is normal . Pericardium A qzddu-rn-snlrdcua pericardial effusion is present . The pericardial [...] LVOT CI: 3.8 l/min/m^2 Performing Organization Address City/[facility] Phone Number [facility] E[facility] HEART[facility] MKCK[facility]ON CPACS Procalcitonin (09/20/2017 10:04 AM LABEL CODER) Procalcitonin 2.35 (H) <0.05 ng/mL [facility] Specimen Blood Narrative Performed At [facility] SEPSIS RISK (ng/mL) Low:0.05-0.50 Intermediate: 0.51-2.00 High: >=2.01 Performing Organization Address [facility] Phone Number [address] [address] [place] Lactic acid, venous, whole blood (09/20/2017 8:04 AM LABEL CODER) Lactate, Venous 0.5 0.5 - 2.2 mmol/L [facility] Specimen Blood Narrative Performed At [facility] Effective 01/27/2016: Units/Reference Range Change New: 0.5-2.2 mmol/LPrevious: 5-20 mg/dL Performing Organization Address [facility] Phone Number [address] [address] [phone] CENTER B-type Natriuretic Factor (BNP) (09/20/2017 8:04 AM LABEL CODER) BNP 22 0 - 100 pg/mL [facility] Specimen Blood Performing Organization Address [facility] Phone Number [address] [address] [phone] CENTER Hemoglobin A1c (09/20/2017 8:04 AM LABEL CODER) Hemoglobin A1C 6.8 (H) 4.3 - 6.1 % [facility] Specimen Blood Performing Organization Address [facility] Phone Number [facility] [address] [address] [place] Strep pneumoniae antigen (09/20/2017 6:09 AM LABEL CODER) Strep pneumoniae Presumptive negative Presumptive negative [facility] Antigen for pneumococcal for pneumococcal [facility] pneumonia - see comment pneumonia - see CENTER comment, Presumptive negative for pneumococcal meningitis - see comment Specimen Urine - Urine, Unspecified Source Narrative Performed At Presumptive negative for pneumococcal [facility] pneumonia, suggesting no current or recent pneumococcal infection. Infection due to S. pneumoniae cannot be ruled out since the antigen present in the sample may be below the detection limit of the test. Performing Organization Address City/State/Zipcode Phone Number [address] [address] [place] Manual Differential (09/20/2017 3:01 AM LABEL CODER) % Neutros (manual) 54 % [facility] % Lymphs (manual) 13 % [facility] % Monos (manual) 11 % [facility] % Eos (manual) 6 % [facility] % Metamyelo (manual) 3 (H) 0 - 0 % [facility] % Myelo (manual) 2 (H) 0 - 0 % [facility] % Bands (manual) 11 (H) 0 - 10 % [facility] # Neutros (manual) 6.70 1.80 - 8.00 K/L [facility] # Lymphs (manual) 1.61 1.48 - 4.50 K/L [facility] # Monos (manual) 1.36 (H) 0.00 - 1.30 K/L [facility] # Eos (manual) 0.74 (H) 0.00 - 0.50 K/L [facility] # Metamyelo (manual) 0.37 (H) 0.00 - 0.00 K/L [facility] [place] # Bands (manual) 1.4 (H) 0.0 - 0.8 K/L [facility] # Myelo (manual) 0.25 (H) 0.00 - 0.00 K/L [facility] Total Counted 100 [facility] Bands plus Segmented 8.06 [facility] Neutrophils [facility]ICAL CENTER WBC Morphology Normal [facility] Platelet Morphology Normal [facility] Anisocytosis 2+ moderate [facility] Poikilocytes 2+ moderate [facility] Specimen Blood Performing Organization Address City/State/Zipcode Phone Number [facility] [address] [place], [place] [phone] CENTER RESPIRATORY PANEL [facility] (09/20/2017 3:01 AM LABEL CODER) Human Metapneumovirus Not detected Not detected, [facility] Rhinovirus Not detected Not detected, [facility] Influenza A Not detected Not detected, [facility] Influenza A subtype H1 Not detected Not detected, [facility] Influenza A Subtype H3 Not detected Not detected, [facility] Influenza A Subtype H1-2009 Not detected Not detected, [facility] Influenza B Not detected Not detected, [facility] Respiratory Syncytial Virus Not detected Not detected, [facility] Parainfluenza Virus 1 Not detected Not detected, [facility] Parainfluenza Virus 2 Not detected Not detected, [facility] Parainfluenza virus 3 Not detected Not detected, [facility] Parainfluenza Virus 4 Not detected Not detected, [facility] Adenovirus Not detected Not detected, [facility] Coronavirus 229E Not detected Not detected, [facility] Coronavirus HKU1 Not detected Not detected, [facility] Coronavirus NL63 Not detected Not detected, [facility] Coronavirus OC43 Not detected Not detected, [facility] Bordetella Pertussis Not detected Not detected, [facility] Chlamydophila Pneumoniae Not detected Not detected, [facility] Mycoplasma Pneumoniae Not detected Not detected, [facility] Specimen Nasopharyngeal - Nasopharyngeal Swab Performing Organization Address [facility] Centercode Phone Number [address] [address] [phone] CENTER Iron, TIBC, % sat. (without ferritin) (09/20/2017 3:01 AM LABEL CODER) Iron 27 (L) 40 - 160 ug/dL [facility] TIBC 186 (L) 250 - 450 ug/dL [facility] Iron % Saturation 15 (L) 20 - 55 % [facility] Specimen Blood Performing Organization Address [facility] Phone Number [address] [address] [phone] [place] Troponin I (09/20/2017 3:01 AM LABEL CODER) Troponin I <0.01 0.00 - 0.03 ng/mL [facility] Specimen Blood Narrative Performed At [facility] Troponin I (TnI) levels must [...] disease, and persistent tachyarrhythmia. Performing Organization Address City/[facility] Healthcare/Zipcode Phone Number [address] [address] [phone] CENTER Phosphorus (09/20/2017 3:01 AM LABEL CODER) Phosphorus 4.2 2.3 - 4.7 mg/dL [facility] Specimen Blood Performing Organization Address [facility] Phone Number [address] [address] C[place] Ferritin (09/20/2017 3:01 AM LABEL CODER) Ferritin 535 (H) 5 - 275 ng/mL [facility] Specimen Blood Performing Organization Address [facility] Phone Number [address] [address] [phone] [place] Creatine Kinase (CK), Total and MB (09/20/2017 3:01 AM LABEL CODER) Total CK 76 29 - 200 U/L [facility] CK-MB 1.9 0.0 - 6.6 ng/mL [facility] MB Relative Index 2.5 % [facility] Specimen Blood Narrative Performed At CK-MB Reference Range: [facility] <6.7Normal 6.7-10.0Borderline >10.0 Abnormal Performing Organization Address [facility] Phone Number [address] [address] [phone] [place] ECG 12 lead (09/20/2017 2:43 AM LABEL CODER) Narrative Performed At Ventricular Rate 79 BPM GE MUSE Atrial Rate 79 BPM P-R Interval 192 ms QRS Duration 152 ms Q-T Interval 456 ms QTC Calculation(Bazett) 522 ms P Rio 59 degrees R Rio -15 degrees T [place] 87 degrees Normal sinus rhythm Left bundle branch block Prolonged QT Abnormal ECG No previous ECGs available Confirmed by MD RAZIA, TREVOR ([id number]) on 09/20/2017 6:40:55 AM Procedure Note Interface, External Ris In - 09/20/2017 6:41 AM LABEL CODER Ventricular Rate 79 BPM Atrial Rate 79 BPM P-R Interval 192 ms QRS Duration 152 ms Q-T Interval 456 ms QTC Calculation(Bazett) 522 ms P [place] 59 degrees R Rio -15 degrees T [place] 87 degrees Normal sinus rhythm Left bundle branch block Prolonged QT Abnormal ECG No previous ECGs available Confirmed by MD RAZIA, TREVOR ([id number]) on 09/20/2017 6:40:55 AM Performing Organization Address [facility] Phone Number [facility] Blood culture (09/20/2017 12:43 AM LABEL CODER)Only the most recent of2 resultswithin the time period is included. Result No growth in 5 days [facility] Specimen Blood - Arm, Left Performing Organization Address City/[facility] Phone Number [facility] [address] [place], [place] [id number] [phone] CENTER after 09/20/2017 Insurance Payer Benefit Plan / Subscriber ID Type Phone Address Group [employer]UE [employer] xxxxxxxxxxxxxxx PPO [phone] [address] [employer] [place] [address] Advance Directives For more information, please contact:[address] [phone] Code Status Date Activated Date Inactivated Comments Full Code 09/19/2017 11:09 PM 09/28/2017 8:58 PM This code status was determined by: Patient
--- OUTSIDE RECORDS SUMMARY | 2018-09-21 11:50 | XMS REPORT ---
:1955 [facility] Address [address] [place] [address] Dr. Chavira. [address] [place] [address] Care Team Providers Name Role Phone DR [...] ID 2017-12-20 2017-12-20 Outpatient C [facility] [id number] 05:45:00 10:51:00 Results Test Description Test Time Test Comments Text Results Atomic Results Result Comments GLUCOMETER GLUCOSE- LAB USE ONLY 2017-12-20 09:57:00 Test Item Value Reference Range Comments GLUCOMETER (test code=GMG) 163 mg/dL 70-100 Meter ID: [id number]: [id number] ARIC ROBERSON GLUCOMETER GLUCOSE- LAB USE [id number] 06:56:00 Test Item Value Reference Range Comments GLUCOMETER (test code=GMG) 148 mg/dL 70-100 CLEANED METERMeter ID: [id number]: [id number] [employer] CULTURE + [id number] 18:43:00 Test Item Value Reference Range Comments CULTURE (BEAKER) (test No acid-fast bacilli isolated pgjj=2391) in 42 days AFB SMEAR (BEAKER) (test No acid fast bacilli seen duhg=295) FUNGUS CULTURE + [id number] 13:42:00 Test Item Value Reference Range Comments CULTURE (BEAKER) (test No fungus isolated in 28 days wfww=1920) FUNGUS SMEAR (BEAKER) (test No fungi seen szqe=6569) BODY FLUID CULTURE + GRAM [id number] 06:03:00 Test Item Value Reference Range Comments CULTURE (BEAKER) (test kcxe=6765) No growth GRAM STAIN RESULT (BEAKER) (test No White blood cells seen jdvf=8903) GRAM STAIN RESULT (BEAKER) (test No organisms seen nvdo=14605) POCT-GLUCOSE [id number] 12:20:00 Test Item Value Reference Range Comments POC-GLUCOSE METER (BEAKER) 181 mg/dL 70-110 TESTED AT [address] (test czns=4171) [place] [address] POCT-GLUCOSE [id number] 08:56:00 Test Item Value Reference Range Comments POC-GLUCOSE METER (BEAKER) 119 mg/dL 70-110 TESTED AT [address] (test vvwb=6103) [place] [id number] BASIC METABOLIC [id number] 07:37:00 Test Item Value Reference Range Comments SODIUM (BEAKER) (test 135 meq/L 136-145 akmh=228) POTASSIUM (BEAKER) (test 4.3 meq/L 3.5-5.1 gkdu=160) CHLORIDE (BEAKER) (test 106 meq/L 98-107 lpyt=016) CO2 (BEAKER) (test 19 meq/L 22-29 okdk=597) BLOOD UREA NITROGEN 49 mg/dL 7-21 (BEAKER) (test xpvk=715) CREATININE (BEAKER) (test 3.42 mg/dL 0.57-1.25 leoy=847) GLUCOSE RANDOM (BEAKER) 109 mg/dL 70-105 (test mlnk=809) CALCIUM (BEAKER) (test 9.4 mg/dL 8.4-10.2 sfms=206) EGFR (BEAKER) (test 14 mL/min/1.73 sq m ESTIMATED GFR IS NOT mwdl=5369) ACCURATE CREATININE CLEARANCE IN PREDICTING GLOMERULAR FILTRATION RATE. ESTIMATED GFR IS NOT APPLICABLE FOR DIALYSIS PATIENTS. [id number] 07:36:00 Test Item Value Reference Range Comments MAGNESIUM (BEAKER) (test pdhg=178) 1.7 mg/dL 1.6-2.6 BODY FLUID CELL COUNT WITH [id number] 22:37:00 Test Item Value Reference Range Comments APPEARANCE FLUID (BEAKER) (test iaue=340) Bloody Clear COLOR FLUID (BEAKER) (test inuo=142) Pita Colorless, Straw RBC FLUID (BEAKER) (test kkwd=373) 91205 /cu mm <=1 ADJUSTED WBC FLUID (BEAKER) (test bolj=7573) 3032 /cu mm <=5 LINING CELLS (BEAKER) (test wqxz=1184) 121 /cu mm <=1 NEUTROPHILS FLUID (BEAKER) (test zhzm=9421) 32 % LYMPHS FLUID (BEAKER) (test pswb=478) 6 % MONO/MACROPHAGE FLUID (BEAKER) (test bgkn=227) 60 % EOSINOPHILS FLUID (BEAKER) (test bieh=075) 2 % BASO FLUID (BEAKER) (test ibpr=790) 0 % CONTAINER BODY FLUID (BEAKER) (test nbyo=1848) EDTA Tube POCT-GLUCOSE [id number] 21:26:00 Test Item Value Reference Range Comments POC-GLUCOSE METER (BEAKER) 165 mg/dL 70-110 TESTED AT [address] (test szmq=3367) [facility] [address] LACTATE DEHYDROGENASE (LDH), BODY [id number] 20:35:00 Test Item Value Reference Range Comments LACTATE DEHYDROGENASE FLUID (BEAKER) 234 U/L Light's criteria identifies (test ilje=753) effusions if one or more are pre Absence of reference range indicates that normals have not been defined.Assay performance has not been validated for this type of specimen.PROTEIN, BODY [id number] 20:35:00 Test Item Value Reference Range Comments PROTEIN FLUID (BEAKER) (test 3.6 g/dL Light's criteria identifies lvnu=172) effusions if one or more are pre Absence of reference range indicates that normals have not been defined.Assay performance has not been validated for this type of specimen.POCT-GLUCOSE [id number] 17:21:00 Test Item Value Reference Range Comments POC-GLUCOSE METER (BEAKER) 134 mg/dL 70-110 TESTED AT [address] (test iyap=7591) [facility] [address] U/S, [id number] 17:19:00Laterality?->RightReason for exam:-> diagnsotic and therapeuticFINAL REPORT [...] After the area is anesthetized, a 4 Sinhala catheter is advanced into the pleural space. [...] Peters Verified Date/Time: 09/27/2017 17:19:37 Reading Location: [place] [id number] Ultrasound Reading Room RAD, CHEST, 1 VIEW, NON [id number] 16:21: 00Reason for exam:->Post Thoracentesis U/S room 3 U/S Room 3 Should this be performed at the bedside?->YesFINAL REPORT AP chest HISTORY: Thoracentesis COMPARISON: 09/27/2017 IMPRESSION:Intact skeleton. Cardiac silhouette mildly enlarged. Mild interstitial prominence, similar to previous. Right effusion appears decreased. No pneumothorax. Signed: Tari Lea Verified Date/Time: 09/27/2017 16:21:56 Reading Location: [facility] Mammo Reading Room Electronically signed by: TARI LEA M.D. on 2017 04:21 PMRAD, CHEST, 1 VIEW, NON [id number] 13:43:00Reason for exam:-&gt ;overloadShould this be performed at the bedside?->YesFINAL REPORT Chest one view compared to September 25 Discussion: Cardiac prominence , pulmonary congestion, and small right base effusion are unchanged. No pneumothorax. Signed: Austyn Apodacaeport Verified Date/Time: 09/27/2017 13: 43:29 Reading Location: [facility] [id number] Consult Reading Room POCT-GLUCOSE [id number] 12:32:00 Test Item Value Reference Range Comments POC-GLUCOSE METER (BEAKER) 181 mg/dL 70-110 TESTED AT [address] (test exhd=6490) [place] [address] VITAMIN B12 AND [id number] 08:57:00 Test Item Value Reference Range Comments VITAMIN B12 (BEAKER) (test isln=748) > pg/mL 213-816 FOLATE (BEAKER) (test lune=553) 13.3 ng/mL >=7.0 SPIN/CONCENTRATION [id number] 08:48:00 Test Item Value Reference Range Comments CONCENTRATION CHARGED (BEAKER) (test pqmn=3464) Done POCT-GLUCOSE [id number] 07:58:00 Test Item Value Reference Range Comments POC-GLUCOSE METER (BEAKER) 155 mg/dL 70-110 TESTED AT [address] (test gyyq=4884) [place] [address] BASIC METABOLIC [id number] 06:35:00 Test Item Value Reference Range Comments SODIUM (BEAKER) (test 134 meq/L 136-145 dwsi=311) POTASSIUM (BEAKER) (test 4.5 meq/L 3.5-5.1 yazb=663) CHLORIDE (BEAKER) (test 107 meq/L 98-107 gliz=921) CO2 (BEAKER) (test 18 meq/L 22-29 sizj=216) BLOOD UREA NITROGEN 45 mg/dL 7-21 (BEAKER) (test ufno=937) CREATININE (BEAKER) (test 3.29 mg/dL 0.57-1.25 niay=094) GLUCOSE RANDOM (BEAKER) 149 mg/dL 70-105 (test raaj=877) CALCIUM (BEAKER) (test 9.4 mg/dL 8.4-10.2 wurc=391) EGFR (BEAKER) (test 14 mL/min/1.73 sq m ESTIMATED GFR IS NOT tjrj=6250) ACCURATE CREATININE CLEARANCE IN PREDICTING GLOMERULAR FILTRATION RATE. ESTIMATED GFR IS NOT APPLICABLE FOR DIALYSIS PATIENTS. [id number] 06:34:00 Test Item Value Reference Range Comments MAGNESIUM (BEAKER) (test zrac=692) 1.6 mg/dL 1.6-2.6 POCT-GLUCOSE [id number] 21:34:00 Test Item Value Reference Range Comments POC-GLUCOSE METER (BEAKER) 172 mg/dL 70-110 TESTED AT [address] (test gufs=8707) [facility] [address] POCT-GLUCOSE [id number] 18:44:00 Test Item Value Reference Range Comments POC-GLUCOSE METER (BEAKER) 179 mg/dL 70-110 TESTED AT [address] (test iavy=4951) [place] [id number] POCT-GLUCOSE [id number] 14:01:00 Test Item Value Reference Range Comments POC-GLUCOSE METER (BEAKER) 176 mg/dL 70-110 TESTED AT [address] (test hemo=2595) [facility] [address] LACTATE DEHYDROGENASE (LDH)2017-09-26 12:06:00 Test Item Value Reference Range Comments LACTATE DEHYDROGENASE (BEAKER) (test oshn=977) 309 U/L 125-220 PROTEIN, [id number] 12:04:00 Test Item Value Reference Range Comments TOTAL PROTEIN (BEAKER) (test foge=693) 6.1 gm/dL 6.0-8.3 [id number] 11:43:00 Test Item Value Reference Range Comments PROTIME (BEAKER) (test vgvc=009) 14.5 seconds 11.7-14.7 INR (BEAKER) (test vxxt=749) 1.1 <=5.9 PARTIAL THROMBOPLASTIN TIME (BEAKER) (test 39.2 seconds 22.5-36.0 ehlh=419) RECOMMENDED COUMADIN/WARFARIN INR THERAPY RANGESSTANDARD DOSE: 2.0 - 3.0 Includes: PROPHYLAXIS forvenous thrombosis, systemic embolization; TREATMENT for venous thrombosis and/or pulmonary embolus.HIGH RISK: Target INR is 2.5-3.5 for patients with mechanical heart valves.PLATELET [id number] 11:31:00 Test Item Value Reference Range Comments PLATELET COUNT (BEAKER) (test lvrn=551) 501 K/CU MM 150-450 POCT-GLUCOSE [id number] 08:42:00 Test Item Value Reference Range Comments POC-GLUCOSE METER (BEAKER) 146 mg/dL 70-110 TESTED AT [address] (test waqy=9345) [place] [address] BASIC METABOLIC [id number] 05:39:00 Test Item Value Reference Range Comments SODIUM (BEAKER) (test 137 meq/L 136-145 tsyy=579) POTASSIUM (BEAKER) (test 4.7 meq/L 3.5-5.1 fldt=220) CHLORIDE (BEAKER) (test 109 meq/L 98-107 yfde=623) CO2 (BEAKER) (test 20 meq/L 22-29 rlwf=918) BLOOD UREA NITROGEN 43 mg/dL 7-21 (BEAKER) (test gxmk=890) CREATININE (BEAKER) (test 3.09 mg/dL 0.57-1.25 xnpo=987) GLUCOSE RANDOM (BEAKER) 160 mg/dL 70-105 (test gapw=713) CALCIUM (BEAKER) (test 9.6 mg/dL 8.4-10.2 tztl=410) EGFR (BEAKER) (test 15 mL/min/1.73 sq m ESTIMATED GFR IS NOT dxsc=6674) ACCURATE CREATININE CLEARANCE IN PREDICTING GLOMERULAR FILTRATION RATE. ESTIMATED GFR IS NOT APPLICABLE FOR DIALYSIS PATIENTS. [id number] 05:38:00 Test Item Value Reference Range Comments MAGNESIUM (BEAKER) (test kkxa=088) 1.9 mg/dL 1.6-2.6 POCT-GLUCOSE [id number] 21:13:00 Test Item Value Reference Range Comments POC-GLUCOSE METER (BEAKER) 241 mg/dL 70-110 TESTED AT [address] (test ouaq=9338) [facility] [address] RAD, CHEST, 2 [id number] 19:38:00Reason for exam:->coughFINAL REPORT Examination: Two view [...] MDReport Verified Date/Time: 2017 19:38:01 Reading Location: [address] Reading Room POCT- GLUCOSE [id number] 17:23:00 Test Item Value Reference Range Comments POC-GLUCOSE METER (BEAKER) 190 mg/dL 70-110 TESTED AT [address] (test orgv=8546) [place] [id number] POCT-GLUCOSE [id number] 12:22:00 Test Item Value Reference Range Comments POC-GLUCOSE METER (BEAKER) 239 mg/dL 70-110 TESTED AT [address] (test jccm=7708) [place] [address] BLOOD [id number] 10:00:00 Test Item Value Reference Range Comments CULTURE (BEAKER) (test lbks=9784) No growth in 5 days BLOOD [id number] 10:00:00 Test Item Value Reference Range Comments CULTURE (BEAKER) (test olmt=5216) No growth in 5 days POCT-GLUCOSE [id number] 08:02:00 Test Item Value Reference Range Comments POC-GLUCOSE METER (BEAKER) 196 mg/dL 70-110 TESTED AT [address] (test xcoi=2895) [place] [address] [id number] 07:15:00 Test Item Value Reference Range Comments MAGNESIUM (BEAKER) (test falp=035) 1.8 mg/dL 1.6-2.6 BASIC METABOLIC [id number] 07:15:00 Test Item Value Reference Range Comments SODIUM (BEAKER) (test 136 meq/L 136-145 zexv=520) POTASSIUM (BEAKER) (test 4.4 meq/L 3.5-5.1 gwgh=214) CHLORIDE (BEAKER) (test 109 meq/L 98-107 fndd=890) CO2 (BEAKER) (test 19 meq/L 22-29 funf=623) BLOOD UREA NITROGEN 44 mg/dL 7-21 (BEAKER) (test mesy=890) CREATININE (BEAKER) (test 3.16 mg/dL 0.57-1.25 psuf=207) GLUCOSE RANDOM (BEAKER) 197 mg/dL 70-105 (test jtyh=022) CALCIUM (BEAKER) (test 9.3 mg/dL 8.4-10.2 rjxo=559) EGFR (BEAKER) (test 15 mL/min/1.73 sq m ESTIMATED GFR IS NOT gvcj=1073) ACCURATE CREATININE CLEARANCE IN PREDICTING GLOMERULAR FILTRATION RATE. ESTIMATED GFR IS NOT APPLICABLE FOR DIALYSIS PATIENTS. POCT-GLUCOSE [id number] 22:03:00 Test Item Value Reference Range Comments POC-GLUCOSE METER (BEAKER) 286 mg/dL 70-110 TESTED AT [address] (test xdsc=4208) [facility] [address] POCT-GLUCOSE [id number] 21:21:00 Test Item Value Reference Range Comments POC-GLUCOSE METER (BEAKER) 294 mg/dL 70-110 TESTED AT [address] (test trnf=0897) [facility] [address] POCT-GLUCOSE [id number] 17:10:00 Test Item Value Reference Range Comments POC-GLUCOSE METER (BEAKER) 212 mg/dL 70-110 TESTED AT [address] (test rgax=3378) [facility] [address] PROTEIN, RANDOM [id number] 17:00:00 Test Item Value Reference Range Comments PROTEIN, URINE (BEAKER) (test bjkv=5996) 154 mg/dL 0-14 CREATININE, RANDOM [id number] 16:59:00 Test Item Value Reference Range Comments CREATININE URINE (BEAKER) (test krrt=669) 88.8 mg/dL Reference Range: No NormalsPET, CARDIAC PERFUSION MULTIPLE STUDIES, REST AND [id number] 16:36:00Reason for exam:->chest pain, hypokinesis on echoFINAL REPORT PROCEDURE: Rest/Stress MYOCARDIAL PERFUSION PET with regadenoson\\XA9\\ CPT CODE: 62991 INDICATION: Chest pain, hypokinesis on echo HISTORY: [...] tracer distribution is normal. 6. No previous [facility] study for comparison. NONINVASIVE RISK STRATIFICATION: The above findings are considered low risk based on the following criteria: 1)Normal or small myocardial perfusion defect at rest or with stress(JACC. 2012;59(9):857-81.) Signed: Selvin Braswell Verified Date/Time: 09/24/2017 16:36:36 POCT- GLUCOSE [id number] 10:53:00 Test Item Value Reference Range Comments POC-GLUCOSE METER (BEAKER) 158 mg/dL 70-110 TESTED AT [facility] [address] [facility] (test jdbq=4574) [facility] [address] POCT-GLUCOSE [id number] 07:31:00 Test Item Value Reference Range Comments POC-GLUCOSE METER (BEAKER) 142 mg/dL 70-110 TESTED AT [facility] [address] [facility] (test nbtz=8527) [facility] [address] BASIC METABOLIC [id number] 05:57:00 Test Item Value Reference Range Comments SODIUM (BEAKER) (test 138 meq/L 136-145 ulfn=250) POTASSIUM (BEAKER) (test 4.3 meq/L 3.5-5.1 omeo=771) CHLORIDE (BEAKER) (test 110 meq/L 98-107 bndj=359) CO2 (BEAKER) (test 19 meq/L 22-29 ovoa=096) BLOOD UREA NITROGEN 42 mg/dL 7-21 (BEAKER) (test kewr=014) CREATININE (BEAKER) (test 3.58 mg/dL 0.57-1.25 yyzc=120) GLUCOSE RANDOM (BEAKER) 139 mg/dL 70-105 (test uxyg=745) CALCIUM (BEAKER) (test 9.4 mg/dL 8.4-10.2 kpls=653) EGFR (BEAKER) (test 13 mL/min/1.73 sq m ESTIMATED GFR IS NOT sroi=2811) ACCURATE CREATININE CLEARANCE IN PREDICTING GLOMERULAR FILTRATION RATE. ESTIMATED GFR IS NOT APPLICABLE FOR DIALYSIS PATIENTS. [id number] 05:13:00 Test Item Value Reference Range Comments MAGNESIUM (BEAKER) (test sthj=702) 1.9 mg/dL 1.6-2.6 VANCOMYCIN LEVEL, [id number] 05:10:00 Test Item Value Reference Range Comments VANCOMYCIN RANDOM (BEAKER) (test arqr=396) 16.6 ug/mL Reference Range: No NormalsU/S, RENAL, [id number] 22:13:00Reason for exam:->Elevated creatinineFINAL REPORT U/S, RENAL, [...] MDReport Verified Date/Time: 09/23/2017 22:13:52 Reading Location: [address] Ortho Consult Reading Room POCT-GLUCOSE [id number] 21:25:00 Test Item Value Reference Range Comments POC-GLUCOSE METER (BEAKER) 220 mg/dL 70-110 TESTED AT [address] (test leje=7887) [place] [address] POCT-GLUCOSE [id number] 17:02:00 Test Item Value Reference Range Comments POC-GLUCOSE METER (BEAKER) 223 mg/dL 70-110 TESTED AT [address] (test fnto=7516) [place] [address] BRONCHIAL CULTURE + GRAM [id number] 15:04:00 Test Item Value Reference Range Comments CULTURE (BEAKER) (test kujg=3041) No growth GRAM STAIN RESULT (BEAKER) (test <1+ WBCs hgnf=5675) GRAM STAIN RESULT (BEAKER) (test No organisms seen nszb=74303) URINALYSIS W/ REFLEX URINE [id number] 13:20:00 Test Item Value Reference Range Comments COLOR (BEAKER) (test wyyk=942) Yellow CLARITY (BEAKER) (test brnl=718) Hazy SPECIFIC GRAVITY UA (BEAKER) (test ydeu=818) 1.010 1.001-1.035 PH UA (BEAKER) (test wuec=185) 5.5 5.0-8.0 PROTEIN UA (BEAKER) (test ddjq=412) 100 mg/dL Negative GLUCOSE UA (BEAKER) (test fkgh=079) 30 mg/dL Negative KETONES UA (BEAKER) (test vhqz=949) Negative Negative BILIRUBIN UA (BEAKER) (test xoou=706) Negative Negative BLOOD UA (BEAKER) (test sxst=426) Negative Negative NITRITE UA (BEAKER) (test dpxy=080) Negative Negative LEUKOCYTE ESTERASE UA (BEAKER) (test dvxw=420) Negative Negative UROBILINOGEN UA (BEAKER) (test bboa=491) 0.2 mg/dL 0.2-1.0 RBC UA (BEAKER) (test mnez=367) 0 /HPF WBC UA (BEAKER) (test jzzh=887) 1 /HPF BACTERIA (BEAKER) (test pxex=779) Occasional MUCUS (BEAKER) (test dfjb=0329) Rare SQUAMOUS EPITHELIAL (BEAKER) (test ogdp=696) 11 /HPF YEAST (BEAKER) (test ytbr=3687) Rare SOURCE(BEAKER) (test pdoz=7343) CREATININE, RANDOM [id number] 13:13:00 Test Item Value Reference Range Comments CREATININE URINE (BEAKER) (test qizw=820) 101.2 mg/dL Reference Range: No NormalsSODIUM, RANDOM [id number] 13:13:00 Test Item Value Reference Range Comments SODIUM URINE (BEAKER) (test fjnu=394) 31 meq/L Reference Range: No NormalsPOCT-GLUCOSE [id number] 11:37:00 Test Item Value Reference Range Comments POC-GLUCOSE METER (BEAKER) 342 mg/dL 70-110 TESTED AT [facility] [address] [facility] (test xsmu=3570) [facility] [address] VANCOMYCIN LEVEL, [id number] 08:10:00 Test Item Value Reference Range Comments VANCOMYCIN RANDOM (BEAKER) (test upmi=043) 20.6 ug/mL Reference Range: No NormalsBASIC METABOLIC [id number] 08:05:00 Test Item Value Reference Range Comments SODIUM (BEAKER) (test 140 meq/L 136-145 fuwo=759) POTASSIUM (BEAKER) (test 4.2 meq/L 3.5-5.1 ojnx=007) CHLORIDE (BEAKER) (test 109 meq/L 98-107 xipt=089) CO2 (BEAKER) (test 18 meq/L 22-29 lmru=041) BLOOD UREA NITROGEN 51 mg/dL 7-21 (BEAKER) (test bumf=360) CREATININE (BEAKER) (test 3.45 mg/dL 0.57-1.25 xkzj=100) GLUCOSE RANDOM (BEAKER) 159 mg/dL 70-105 (test nkma=427) CALCIUM (BEAKER) (test 9.4 mg/dL 8.4-10.2 ooez=260) EGFR (BEAKER) (test 14 mL/min/1.73 sq m ESTIMATED GFR IS NOT nkhq=3657) ACCURATE CREATININE CLEARANCE IN PREDICTING GLOMERULAR FILTRATION RATE. ESTIMATED GFR IS NOT APPLICABLE FOR DIALYSIS PATIENTS. CBC W/PLT COUNT & AUTO [id number] 07:43:00 Test Item Value Reference Range Comments WHITE BLOOD CELL COUNT (BEAKER) (test hrlo=957) 12.7 K/ L 3.5-10.5 RED BLOOD CELL COUNT (BEAKER) (test ckni=211) 2.61 M/ L 3.93-5.22 HEMOGLOBIN (BEAKER) (test lzfj=811) 7.9 GM/DL 11.2-15.7 HEMATOCRIT (BEAKER) (test rtdj=859) 24.7 % 34.1-44.9 MEAN CORPUSCULAR VOLUME (BEAKER) (test cevb=921) 94.6 fL 79.4-94.8 MEAN CORPUSCULAR HEMOGLOBIN (BEAKER) (test 30.3 pg 25.6-32.2 ygik=372) MEAN CORPUSCULAR HEMOGLOBIN CONC (BEAKER) (test 32.0 GM/DL 32.2-35.5 qgsm=868) RED CELL DISTRIBUTION WIDTH (BEAKER) (test 14.2 % 11.7-14.4 nsle=800) PLATELET COUNT (BEAKER) (test vmqz=719) 466 K/CU MM 150-450 MEAN PLATELET VOLUME (BEAKER) (test wrlb=803) 10.6 fL 9.4-12.3 NUCLEATED RED BLOOD CELLS (BEAKER) (test 0 /100 WBC 0-0 sfgu=949) NEUTROPHILS RELATIVE PERCENT (BEAKER) (test 64 % irnm=681) LYMPHOCYTES RELATIVE PERCENT (BEAKER) (test 17 % suyk=210) MONOCYTES RELATIVE PERCENT (BEAKER) (test 11 % npte=819) EOSINOPHILS RELATIVE PERCENT (BEAKER) (test 7 % ejix=470) BASOPHILS RELATIVE PERCENT (BEAKER) (test 0 % schh=239) NEUTROPHILS ABSOLUTE COUNT (BEAKER) (test 8.16 K/ L 1.56-6.13 tjhv=722) LYMPHOCYTES ABSOLUTE COUNT (BEAKER) (test 2.14 K/ L 1.18-3.74 shdt=970) MONOCYTES ABSOLUTE COUNT (BEAKER) (test 1.35 K/ L 0.24-0.36 vmjy=134) EOSINOPHILS ABSOLUTE COUNT (BEAKER) (test 0.83 K/ L 0.04-0.36 hsrv=345) BASOPHILS ABSOLUTE COUNT (BEAKER) (test 0.04 K/ L 0.01-0.08 yobp=288) IMMATURE GRANULOCYTES-RELATIVE PERCENT (BEAKER) 2 % 0-1 (test brmz=2142) [id number] 07:35:00 Test Item Value Reference Range Comments MAGNESIUM (BEAKER) (test emep=876) 1.9 mg/dL 1.6-2.6 POCT-GLUCOSE [id number] 07:33:00 Test Item Value Reference Range Comments POC-GLUCOSE METER (BEAKER) 196 mg/dL 70-110 TESTED AT [address] (test trhc=6499) [place] [address] POCT-GLUCOSE [id number] 21:15:00 Test Item Value Reference Range Comments POC-GLUCOSE METER (BEAKER) 243 mg/dL 70-110 TESTED AT [address] (test irkd=2458) [place] [address] POCT-GLUCOSE [id number] 17:44:00 Test Item Value Reference Range Comments POC-GLUCOSE METER (BEAKER) 218 mg/dL 70-110 TESTED AT [address] (test nrlh=5333) [place] [address] CMV PCR, [id number] 17:31:00 Test Item Value Reference Range Comments CMV VIRAL LOAD - NEGATIVE Negative or below the linear (BEAKER) (test sntn=9886) range of the assay (<375 copies/mL) Cytomegalovirus [...] and its performance characteristics determined by the [facility] Pathology Department, Section of Molecular Pathology. It has not been cleared or approved by the U.S. Food and Drug Administration (FDA), since FDA approval is not required for clinical use of the test. Validation was done as required by The Clinical Laboratory Improvement Amendments of 1988.POCT-GLUCOSE [id number] 12:39:00 Test Item Value Reference Range Comments POC-GLUCOSE METER (BEAKER) 210 mg/dL 70-110 TESTED AT [address] (test prdo=2529) [place] [id number] POCT-GLUCOSE [id number] 07:41:00 Test Item Value Reference Range Comments POC-GLUCOSE METER (BEAKER) 151 mg/dL 70-110 TESTED AT [place] [id number] [facility] (test raym=9152) [place] [id number] BASIC METABOLIC [id number] 05:54:00 Test Item Value Reference Range Comments SODIUM (BEAKER) (test 140 meq/L 136-145 pelk=664) POTASSIUM (BEAKER) (test 4.4 meq/L 3.5-5.1 jwgg=178) CHLORIDE (BEAKER) (test 109 meq/L 98-107 yhgn=578) CO2 (BEAKER) (test 20 meq/L 22-29 fioz=576) BLOOD UREA NITROGEN 49 mg/dL 7-21 (BEAKER) (test oecx=136) CREATININE (BEAKER) (test 3.42 mg/dL 0.57-1.25 qqvu=001) GLUCOSE RANDOM (BEAKER) 140 mg/dL 70-105 (test vjhx=469) CALCIUM (BEAKER) (test 9.4 mg/dL 8.4-10.2 frbr=301) EGFR (BEAKER) (test 14 mL/min/1.73 sq m ESTIMATED GFR IS NOT bmac=7114) ACCURATE CREATININE CLEARANCE IN PREDICTING GLOMERULAR FILTRATION RATE. ESTIMATED GFR IS NOT APPLICABLE FOR DIALYSIS PATIENTS. VANCOMYCIN LEVEL, [id number] 05:54:00 Test Item Value Reference Range Comments VANCOMYCIN RANDOM (BEAKER) (test tfbq=088) 30.7 ug/mL Reference Range: No [id number] 05:47:00 Test Item Value Reference Range Comments MAGNESIUM (BEAKER) (test uynw=178) 1.8 mg/dL 1.6-2.6 CBC W/PLT COUNT & AUTO [id number] 05:15:00 Test Item Value Reference Range Comments WHITE BLOOD CELL COUNT (BEAKER) (test yexz=375) 12.2 K/ L 3.5-10.5 RED BLOOD CELL COUNT (BEAKER) (test czeb=884) 2.44 M/ L 3.93-5.22 HEMOGLOBIN (BEAKER) (test mnbb=214) 7.7 GM/DL 11.2-15.7 HEMATOCRIT (BEAKER) (test vnah=541) 23.2 % 34.1-44.9 MEAN CORPUSCULAR VOLUME (BEAKER) (test xpbi=907) 95.1 fL 79.4-94.8 MEAN CORPUSCULAR HEMOGLOBIN (BEAKER) (test 31.6 pg 25.6-32.2 kalw=319) MEAN CORPUSCULAR HEMOGLOBIN CONC (BEAKER) (test 33.2 GM/DL 32.2-35.5 ipud=542) RED CELL DISTRIBUTION WIDTH (BEAKER) (test 14.1 % 11.7-14.4 mfot=374) PLATELET COUNT (BEAKER) (test wdtk=519) 396 K/CU MM 150-450 MEAN PLATELET VOLUME (BEAKER) (test cnwv=850) 9.9 fL 9.4-12.3 NUCLEATED RED BLOOD CELLS (BEAKER) (test 0 /100 WBC 0-0 capu=220) NEUTROPHILS RELATIVE PERCENT (BEAKER) (test 63 % xsyp=388) LYMPHOCYTES RELATIVE PERCENT (BEAKER) (test 16 % oqhg=322) MONOCYTES RELATIVE PERCENT (BEAKER) (test 11 % ssdq=785) EOSINOPHILS RELATIVE PERCENT (BEAKER) (test 7 % qpvp=747) BASOPHILS RELATIVE PERCENT (BEAKER) (test 0 % rkjs=588) NEUTROPHILS ABSOLUTE COUNT (BEAKER) (test 7.70 K/ L 1.56-6.13 ymqs=013) LYMPHOCYTES ABSOLUTE COUNT (BEAKER) (test 1.99 K/ L 1.18-3.74 gaih=678) MONOCYTES ABSOLUTE COUNT (BEAKER) (test 1.34 K/ L 0.24-0.36 ucis=084) EOSINOPHILS ABSOLUTE COUNT (BEAKER) (test 0.80 K/ L 0.04-0.36 jucf=571) BASOPHILS ABSOLUTE COUNT (BEAKER) (test 0.05 K/ L 0.01-0.08 ltlh=736) IMMATURE GRANULOCYTES-RELATIVE PERCENT (BEAKER) 3 % 0-1 (test cbii=6349) POCT-GLUCOSE [id number] 21:10:00 Test Item Value Reference Range Comments POC-GLUCOSE METER (BEAKER) 209 mg/dL 70-110 TESTED AT [address] (test kvsk=8286) [place] [address] POCT-GLUCOSE [id number] 16:57:00 Test Item Value Reference Range Comments POC-GLUCOSE METER (BEAKER) 90 mg/dL 70-110 TESTED AT [address] (test bskk=6537) [place] [id number] POCT-GLUCOSE [id number] 12:39:00 Test Item Value Reference Range Comments POC-GLUCOSE METER (BEAKER) 63 mg/dL 70-110 TESTED AT [address] (test gxwf=5286) [place] [id number] BLOOD GAS, [id number] 11:19:00 Test Item Value Reference Range Comments PH ARTERIAL (BEAKER) (test xkwc=639) 7.43 7.35-7.45 PCO2 ARTERIAL (BEAKER) (test uybr=002) 32 mmHg 35-45 PO2 ARTERIAL (BEAKER) (test hkpq=623) 226 mmHg 80-90 O2 SATURATION ARTERIAL (BEAKER) (test cirv=470) 99.5 % 96.0-97.0 HCO3 ARTERIAL (BEAKER) (test wvab=714) 21 mmol/L 21-29 BASE EXCESS ARTERIAL (BEAKER) (test mwdn=335) -3.3 mmol/L -2.0-3.0 PATIENT TEMPERATURE (BEAKER) (test vpys=7368) 36.9 C FIO2 (BEAKER) (test iose=3339) 60.0 % RAD, CHEST, 1 VIEW, NON [id number] 09:41:00Reason for exam:-> intubationShould this be performed [...] MDReport Verified Date/Time: 09/21/2017 09:41:46 Reading Location: [facility] Radiology Reading Room POCT-GLUCOSE [id number] 08:45:00 Test Item Value Reference Range Comments POC-GLUCOSE METER (BEAKER) 72 mg/dL 70-110 TESTED AT [facility] [address] [facility] (test eibl=7977) [facility] [address] [id number] 06:31:00 Test Item Value Reference Range Comments MAGNESIUM (BEAKER) (test vipx=142) 2.0 mg/dL 1.6-2.6 BASIC METABOLIC [id number] 06:31:00 Test Item Value Reference Range Comments SODIUM (BEAKER) (test 139 meq/L 136-145 hyxv=021) POTASSIUM (BEAKER) (test 4.6 meq/L 3.5-5.1 hglq=199) CHLORIDE (BEAKER) (test 109 meq/L 98-107 vtku=553) CO2 (BEAKER) (test 19 meq/L 22-29 sgkt=260) BLOOD UREA NITROGEN 44 mg/dL 7-21 (BEAKER) (test hdrk=369) CREATININE (BEAKER) (test 3.07 mg/dL 0.57-1.25 pbwa=946) GLUCOSE RANDOM (BEAKER) 83 mg/dL 70-105 (test yjqv=561) CALCIUM (BEAKER) (test 9.5 mg/dL 8.4-10.2 gzzz=279) EGFR (BEAKER) (test 15 mL/min/1.73 sq m ESTIMATED GFR IS NOT mraj=4370) ACCURATE CREATININE CLEARANCE IN PREDICTING GLOMERULAR FILTRATION RATE. ESTIMATED GFR IS NOT APPLICABLE FOR DIALYSIS PATIENTS. CBC W/PLT COUNT & AUTO [id number] 05:56:00 Test Item Value Reference Range Comments WHITE BLOOD CELL COUNT (BEAKER) (test vpwf=356) 12.8 K/ L 3.5-10.5 RED BLOOD CELL COUNT (BEAKER) (test mrem=482) 2.67 M/ L 3.93-5.22 HEMOGLOBIN (BEAKER) (test fojo=551) 8.3 GM/DL 11.2-15.7 HEMATOCRIT (BEAKER) (test mkfn=454) 25.4 % 34.1-44.9 MEAN CORPUSCULAR VOLUME (BEAKER) (test jocb=206) 95.1 fL 79.4-94.8 MEAN CORPUSCULAR HEMOGLOBIN (BEAKER) (test 31.1 pg 25.6-32.2 zxag=212) MEAN CORPUSCULAR HEMOGLOBIN CONC (BEAKER) (test 32.7 GM/DL 32.2-35.5 vmap=344) RED CELL DISTRIBUTION WIDTH (BEAKER) (test 14.3 % 11.7-14.4 ihpc=727) PLATELET COUNT (BEAKER) (test pitx=937) 394 K/CU MM 150-450 MEAN PLATELET VOLUME (BEAKER) (test hget=651) 10.3 fL 9.4-12.3 NUCLEATED RED BLOOD CELLS (BEAKER) (test 0 /100 WBC 0-0 ksal=307) NEUTROPHILS RELATIVE PERCENT (BEAKER) (test 63 % xwms=339) LYMPHOCYTES RELATIVE PERCENT (BEAKER) (test 16 % tbuj=554) MONOCYTES RELATIVE PERCENT (BEAKER) (test 11 % hxij=816) EOSINOPHILS RELATIVE PERCENT (BEAKER) (test 6 % vpvm=725) BASOPHILS RELATIVE PERCENT (BEAKER) (test 0 % wxhe=544) NEUTROPHILS ABSOLUTE COUNT (BEAKER) (test 8.06 K/ L 1.56-6.13 nvzi=539) LYMPHOCYTES ABSOLUTE COUNT (BEAKER) (test 2.00 K/ L 1.18-3.74 zuoz=601) MONOCYTES ABSOLUTE COUNT (BEAKER) (test 1.43 K/ L 0.24-0.36 alww=185) EOSINOPHILS ABSOLUTE COUNT (BEAKER) (test 0.80 K/ L 0.04-0.36 ovxa=052) BASOPHILS ABSOLUTE COUNT (BEAKER) (test 0.05 K/ L 0.01-0.08 pdhe=759) IMMATURE GRANULOCYTES-RELATIVE PERCENT (BEAKER) 4 % 0-1 (test simr=7569) RAD, CHEST, 1 VIEW, NON [id number] 03:49:00Reason for exam:->PNAShould this be performed at [...] pneumothorax or acute bony abnormality. Signed: [facility] Verified Date/Time: 09/21/2017 03:49:47 Reading Location: [address] Reading Room POCT-GLUCOSE [id number] 22:14:00 Test Item Value Reference Range Comments POC-GLUCOSE METER (BEAKER) 173 mg/dL 70-110 TESTED AT [address] (test degw=4993) [place] [address] LEGIONELLA ANTIGEN, [id number] 19:27:00 Test Item Value Reference Range Comments L. PNEUMOPHILA SEROGP 1 Negative - see Negative for L. UR AG (BEAKER) (test comment pneumophila serogroup 1 ptcl=2444) antigen, suggesting no recent or current infection with this serogroup. Legionellosis cannot be ruled out since other serogroups and species may cause disease. POCT-GLUCOSE [id number] 18:01:00 Test Item Value Reference Range Comments POC-GLUCOSE METER (BEAKER) 237 mg/dL 70-110 TESTED AT [address] (test ojjn=0493) [place] [id number] HEMOGLOBIN [id number] 14:19:00 Test Item Value Reference Range Comments HEMOGLOBIN A1C (BEAKER) (test casr=301) 6.8 % 4.3-6.1 RESPIRATORY PANEL [id number] 13:56:00 Test Item Value Reference Range Comments HUMAN METAPNEUMOVIRUS (BEAKER) (test Not detected Not detected, Inconclusive fbwq=3971) RHINOVIRUS (BEAKER) (test ztok=9591) Not detected Not detected, Inconclusive INFLUENZA A (BEAKER) (test Not detected Not detected, Inconclusive gdji=4980) INFLUENZA A SUBTYPE H1 (BEAKER) Not detected Not detected, Inconclusive (test uymf=9355) INFLUENZA A SUBTYPE H3 (BEAKER) Not detected Not detected, Inconclusive (test bmhe=9153) INFLUENZA A SUBTYPE H1-2009 (BEAKER) Not detected Not detected, Inconclusive (test sixm=1212) INFLUENZA B (BEAKER) (test Not detected Not detected, Inconclusive ocpa=7290) RESPIRATORY SYNCYTIAL VIRUS (BEAKER) Not detected Not detected, Inconclusive (test jwdc=6961) PARAINFLUENZA VIRUS 1 (BEAKER) (test Not detected Not detected, Inconclusive bphs=3419) PARAINFLUENZA VIRUS 2 (BEAKER) (test Not detected Not detected, Inconclusive lplp=9997) PARAINFLUENZA VIRUS 3 (BEAKER) (test Not detected Not detected, Inconclusive blrm=2309) PARAINFLUENZA VIRUS 4 (BEAKER) (test Not detected Not detected, Inconclusive svwf=8877) ADENOVIRUS (BEAKER) (test ocbl=5446) Not detected Not detected, Inconclusive CORONAVIRUS 229E (BEAKER) (test Not detected Not detected, Inconclusive jple=8558) CORONAVIRUS HKU1 (BEAKER) (test Not detected Not detected, Inconclusive mata=3867) CORONAVIRUS NL63 (BEAKER) (test Not detected Not detected, Inconclusive vedt=5090) CORONAVIRUS OC43 (BEAKER) (test Not detected Not detected, Inconclusive sulu=6328) BORDETELLA PERTUSSIS (BEAKER) (test Not detected Not detected, Inconclusive rimk=1187) CHLAMYDOPHILA PNEUMONIAE (BEAKER) Not detected Not detected, Inconclusive (test uxwg=3062) MYCOPLASMA PNEUMONIAE (BEAKER) (test Not detected Not detected, Inconclusive hhaj=2159) [id number] 13:17:00 Test Item Value Reference Range Comments PROCALCITONIN (BEAKER) (test qgda=9811) 2.35 ng/mL <0.05 SEPSIS RISK (ng/mL)Low: 0.05-0.50Intermediate: 0.51-2.00High: & gt;=2.01POCT-GLUCOSE [id number] 12:03:00 Test Item Value Reference Range Comments POC-GLUCOSE METER (BEAKER) 126 mg/dL 70-110 TESTED AT [address] (test eqfj=4173) [place] [address] B-TYPE NATRIURETIC FACTOR (BNP)2017-09-20 11:15:00 Test Item Value Reference Range Comments B-TYPE NATRIURETIC PEPTIDE (BEAKER) (test vonj=723) 22 pg/mL 0-100 LACTIC ACID, VENOUS, WHOLE [id number] 11:05:00 Test Item Value Reference Range Comments LACTATE BLOOD VENOUS (2) (BEAKER) (test 0.5 mmol/L 0.5-2.2 ouvj=1684) Effective 01/27/2016: Units/Reference Range ChangeNew: 0.5-2.2 mmol/L Previous: 5 -20 mg/dLPOCT-GLUCOSE [id number] 10:09:00 Test Item Value Reference Range Comments POC-GLUCOSE METER (BEAKER) 104 mg/dL 70-110 TESTED AT [address] (test ifhd=7552) [place] [address] STREP PNEUMONIAE [id number] 09:55:00 Test Item Value Reference Range Comments STREP PNEUMONIAE ANTIGEN Presumptive negative for Presumptive negative for (AKER) (test pneumococcal pneumonia - pneumococcal pneumonia - tmpc=0750) see comment see commen Presumptive negative for pneumococcal pneumonia, suggesting no current or recent pneumococcal infection. Infection due to S. pneumoniae cannot be ruled out since the antigen present in the sample may be below the detection limit of the test.CBC W/PLT COUNT & AUTO [id number] 09:42:00 Test Item Value Reference Range Comments WHITE BLOOD CELL COUNT (BEAKER) (test hebw=077) 12.4 K/ L 3.5-10.5 RED BLOOD CELL COUNT (BEAKER) (test rixo=837) 2.65 M/ L 3.93-5.22 HEMOGLOBIN (BEAKER) (test fvrj=430) 8.2 GM/DL 11.2-15.7 HEMATOCRIT (BEAKER) (test mxlf=189) 25.3 % 34.1-44.9 MEAN CORPUSCULAR VOLUME (BEAKER) (test fflu=472) 95.5 fL 79.4-94.8 MEAN CORPUSCULAR HEMOGLOBIN (BEAKER) (test 30.9 pg 25.6-32.2 ezlv=751) MEAN CORPUSCULAR HEMOGLOBIN CONC (BEAKER) (test 32.4 GM/DL 32.2-35.5 zrje=204) RED CELL DISTRIBUTION WIDTH (BEAKER) (test 14.3 % 11.7-14.4 oxbj=993) PLATELET COUNT (BEAKER) (test nonm=775) 328 K/CU MM 150-450 MEAN PLATELET VOLUME (BEAKER) (test dfvz=984) 10.8 fL 9.4-12.3 NUCLEATED RED BLOOD CELLS (BEAKER) (test 0 /100 WBC 0-0 ngjs=148) IMMATURE GRANULOCYTES-RELATIVE PERCENT (BEAKER) 6 % 0-1 (test xfri=3989) (MANUAL DIFFERENTIAL)2017-09-20 09:42:00 Test Item Value Reference Range Comments NEUTROPHILS - REL (DIFF) (BEAKER) (test 54 % tugo=8336) LYMPHOCYTES - REL (DIFF) (BEAKER) (test 13 % bxpo=2548) MONOCYTES - REL (DIFF) (BEAKER) (test qipz=1097) 11 % EOSINOPHILS - REL (DIFF) (BEAKER) (test 6 % plxv=5397) METAMYELOCYTES-REL (DIFF) (BEAKER) (test 3 % 0-0 bjit=570) MYELOCYTES-REL (DIFF) (BEAKER) (test vsad=4852) 2 % 0-0 BANDS - REL (DIFF) (BEAKER) (test tzzj=2817) 11 % 0-10 NEUTROPHILS - ABS (DIFF) (BEAKER) (test 6.70 K/ L 1.80-8.00 swfu=6504) LYMPHOCYTES - ABS (DIFF) (BEAKER) (test 1.61 K/ L 1.48-4.50 qhmt=1575) MONOCYTES - ABS (DIFF) (BEAKER) (test qmic=9767) 1.36 K/ L 0.00-1.30 EOSINOPHILS - ABS (DIFF) (BEAKER) (test 0.74 K/ L 0.00-0.50 shzu=1641) METAMYELOCTYES - ABS (DIFF) (BEAKER) (test 0.37 K/ L 0.00-0.00 gkam=080) BANDS-ABS (DIFF) (BEAKER) (test nzxm=7250) 1.4 K/ L 0.0-0.8 MYELOCYTES-ABS (DIFF) (BEAKER) (test gjyd=5979) 0.25 K/ L 0.00-0.00 TOTAL COUNTED (BEAKER) (test hmnc=1123) 100 BANDS + SEGMENTED NEUTROPHILS (BEAKER) (test 8.06 mxuy=1871) WBC MORPHOLOGY (BEAKER) (test upnp=591) Normal PLT MORPHOLOGY (BEAKER) (test hmix=589) Normal ANISOCYTOSIS (BEAKER) (test wqov=146) 2+ moderate POIKILOCYTES (BEAKER) (test kqxr=348) 2+ moderate POCT-GLUCOSE [id number] 08:34:00 Test Item Value Reference Range Comments POC-GLUCOSE METER (BEAKER) 55 mg/dL 70-110 Notified HONG LERMA/TESTED AT [facility] (test zsao=7766) [address] [facility] [address] [id number] 04:42:00 Test Item Value Reference Range Comments FERRITIN (BEAKER) (test zlzn=944) 535 ng/mL 5-275 IRON, TIBC, % SAT. (WITHOUT FERRITIN)2017-09-20 04:22:00 Test Item Value Reference Range Comments IRON (BEAKER) (test hovr=822) 27 ug/dL 40-160 TOTAL IRON BINDING CAPACITY (BEAKER) (test 186 ug/dL 250-450 idjr=518) IRON % SATURATION (2) (BEAKER) (test wkyb=9659) 15 % 20-55 [id number] 03:41:00 Test Item Value Reference Range Comments MAGNESIUM (BEAKER) (test iutn=731) 1.8 mg/dL 1.6-2.6 [id number] 03:41:00 Test Item Value Reference Range Comments PHOSPHORUS (BEAKER) (test owtj=513) 4.2 mg/dL 2.3-4.7 BASIC METABOLIC [id number] 03:32:00 Test Item Value Reference Range Comments SODIUM (BEAKER) (test 138 meq/L 136-145 jdab=214) POTASSIUM (BEAKER) (test 4.3 meq/L 3.5-5.1 lplb=147) CHLORIDE (BEAKER) (test 110 meq/L 98-107 fkvw=119) CO2 (BEAKER) (test 19 meq/L 22-29 rtbo=603) BLOOD UREA NITROGEN 45 mg/dL 7-21 (BEAKER) (test zvfj=791) CREATININE (BEAKER) (test 2.64 mg/dL 0.57-1.25 xfcp=231) GLUCOSE RANDOM (BEAKER) 116 mg/dL 70-105 (test suhl=417) CALCIUM (BEAKER) (test 8.8 mg/dL 8.4-10.2 nizb=809) EGFR (BEAKER) (test 18 mL/min/1.73 sq m ESTIMATED GFR IS NOT acwf=0706) ACCURATE CREATININE CLEARANCE IN PREDICTING GLOMERULAR FILTRATION RATE. ESTIMATED GFR IS NOT APPLICABLE FOR DIALYSIS PATIENTS. CREATINE KINASE (CK), TOTAL AND [id number] 03:32:00 Test Item Value Reference Range Comments CREATINE KINASE TOTAL (BEAKER) (test ggrq=659) 76 U/L 29-200 CREATINE KINASE-MB (BEAKER) (test vlhv=494) 1.9 ng/mL 0.0-6.6 CREATINE KINASE-MB INDEX (BEAKER) (test xxyg=942) 2.5 % CK-MB Reference Range:<6.7 Normal6.7-10.0 Borderline>10.0 AbnormalTROPONIN [id number] 03:32:00 Test Item Value Reference Range Comments TROPONIN I (BEAKER) (test spkr=401) < ng/mL 0.00-0.03 Troponin I (TnI) levels [...] acidosis, acute neurological disease, and persistent tachyarrhythmia.POCT-GLUCOSE [id number] 01:15:00 Test Item Value Reference Range Comments POC-GLUCOSE METER (BEAKER) 157 mg/dL 70-110 TESTED AT [facility] [address] [place] [address] (test bbhk=6274) [facility] [address] RAD, CHEST, 1 VIEW, NON [id number] 00:10:00Reason for exam:->RLL PNAShould this be performed [...] MDReport Verified Date/Time: 09/20/2017 00:10:56 Reading Location: [address] Ortho Consult Reading Room
--- NOTE | 2018-09-21 13:50 | ER ---
Nurse's Notes [facility] Name: Wendy Ziegler Age: 63 yrs Sex: Female : 1955 Arrival Date: 09/21/2018 Time: 11:47 Bed 25 Private MD: Wellington Beal Diagnosis: Cutaneous abscess of chest wall-left breast;Type 1 diabetes mellitus;Obesity, unspecified Presentation: 09/21 12:01 Presenting complaint: Patient states: Abscess to bottom of left breast for 4 days. 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 Draining purulent drainage. Transition of care: patient was not received from another setting of care. Onset of symptoms was September 17, 2018. Risk Assessment: Do you want to hurt yourself or someone else? Patient reports no desire to harm self or others. Initial Sepsis Screen: Does the patient meet any 2 criteria? No. Patient's initial sepsis screen is negative. Does the patient have a suspected source of infection? Yes:. Care prior to arrival: None. 12:01 Method Of Arrival: Wheelchair aj 12:01 Acuity: SINDY 3 aj Triage Assessment: 12:03 General: Appears in no apparent distress. comfortable, Behavior is calm, cooperative, aj appropriate for age. Pain: Denies pain. Neuro: Level of Consciousness is awake, alert, obeys commands, Oriented to person, place, time, situation, Appropriate for age. Respiratory: Airway is patent Respiratory effort is even, unlabored, Respiratory pattern is regular, symmetrical. Derm: Skin is intact, is healthy with good turgor, Skin is pink, warm \T\ dry. normal, Abscess located on left breast is half dollar sized, has purulent drainage, was lanced by patient prior to arrival. Historical: - Allergies: 12:03 Bactrim; aj 12:03 Codeine; aj 12:03 Remicade; aj 12:03 victoza; aj - PMHx: 12:03 chronic kidney disease; COPD; Diabetes - IDDM; Hyperlipidemia; Hypertension; Pneumonia; aj Rheumatoid Arthritis; Sleep Apnea; - PSHx: 12:03 None; aj - Immunization history:: Adult Immunizations up to date. - Social history:: Smoking status: Patient/guardian denies using tobacco. - Ebola Screening: : Patient negative for fever greater than or equal to 101.5 degrees Fahrenheit, and additional compatible Ebola Virus Disease symptoms Patient denies exposure to infectious person Patient denies travel to an Ebola-affected area in the 21 days before illness onset No symptoms or risks identified at this time. - Family history:: not pertinent. Screenin:43 Abuse screen: Denies threats or abuse. Denies injuries from another. Nutritional kr2 screening: No deficits noted. Tuberculosis screening: No symptoms or risk factors identified. Fall Risk None identified. Assessment: 13:40 General: Appears in no apparent distress. comfortable, well groomed, Behavior is calm, kr2 cooperative. Pain: Complains of pain in left breast Pain does not radiate. Pain currently is 2 out of 10 on a pain scale. at worst was 7 out of 10 on a pain scale. Quality of pain is described as tender, Is continuous, Alleviated by Patient states that since she popped abscess it is not hurting as much. Neuro: Level of Consciousness is awake, alert, obeys commands, Oriented to person, place, time, situation, Appropriate for age. Cardiovascular: Capillary refill < 3 seconds in bilateral fingers Patient's skin is warm and dry. Respiratory: Airway is patent Respiratory effort is even, unlabored, Respiratory pattern is regular, symmetrical. GI: Abdomen is non-distended, obese. Derm: Skin is healthy with good turgor, Skin is pink, warm \T\ dry. Abscess located on left breast is quarter sized, has purulent drainage, is red, was lanced by patient prior to arrival. Musculoskeletal: Circulation, motion, and sensation intact. 14:00 Reassessment: Wound cleansed with Hibiclens and saline, Bactroban ointment applied as kr2 ordered, covered with 4x4's and secured with tape. 14:40 Reassessment: Patient appears in no apparent distress at this time. Patient and/or kr2 family updated on plan of care and expected duration. Pain level reassessed. Patient is alert, oriented x 3, equal unlabored respirations, skin warm/dry/pink. Patient refused insulin, states she and her primary physician are managing her blood glucose. Verbalized understanding of risks associated with elevated blood glucose. Patient denies pain at this time. Vital Signs: 12:03 BP 147 / 74; Pulse 76; Resp 20; Temp 97.2; Pulse Ox 93% on R/A; Weight 111.13 kg; aj Height 5 ft. 6 in. (167.64 cm); 13:44 BP 145 / 66; Pulse 75; Resp 18; Pulse Ox 96% ; kr2 12:03 Body Mass Index 39.54 (111.13 kg, 167.64 cm) aj ED Course: 11:47 Patient arrived in ED. sb2 11:47 Wellington Beal MD is Private Physician. sb2 12:02 Triage completed. aj 12:03 Arm band placed on left wrist. Patient placed in waiting room, Patient notified of wait aj time. 13:11 Sundar Bah MD is Attending Physician. vernon 13:29 Dasia Lowe, HONG is Primary Nurse. kr2 13:43 Patient has correct armband on for positive identification. Bed in low position. Call kr2 light in reach. Side rails up X 1. Adult w/ patient. Pulse ox on. NIBP on. Door closed. Warm blanket given. Head of bed elevated. 13:47 Wellington Beal MD is Referral Physician. vernon 13:48 Robert Malhotra MD is Referral Physician. vernon 13:59 Wound Culture Sent. kr2 14:44 No provider procedures requiring assistance completed. Patient did not have IV access kr2 during this emergency room visit. Administered Medications: 13:59 Drug: Doxycycline 100 mg Route: PO; kr2 14:40 Follow up: Response: No adverse reaction kr2 13:59 Drug: KeFLEX 500 mg Route: PO; kr2 14:40 Follow up: Response: No adverse reaction kr2 14:00 Drug: Bactroban Ointment 2 % 1 application Route: Topical; Site: wound; kr2 14:40 Follow up: Response: No adverse reaction kr2 14:07 Drug: Doxycycline 100 mg Route: PO; kr2 14:40 Follow up: Response: No adverse reaction kr2 14:39 Not Given (Patient Refused): Insulin Regular Human 10 units Sub-Q once kr2 Point of Care Testing: Blood Glucose: 14:07 Blood Glucose: 417 mg/dL; kr2 Ranges: Outcome: 13:49 Discharge ordered by . vernon 14:44 Discharged to home via wheelchair, with family. kr2 14:44 Condition: good 14:44 Discharge instructions given to patient, family, Instructed on discharge instructions, follow up and referral plans. medication usage, wound care, Demonstrated understanding of instructions, follow-up care, medications, wound care, Prescriptions given X 4. 14:45 Patient left the ED. kr2 Addendum: 09/24/2018 18:33 Addendum: Culture Results: Positive wound culture. No further action required. Bacteria i w sensitive to prescribed antibiotic. Signatures: Lissa Walsh, RN Sundar Fernandez MD MD cha Williams, Irene, RN RN iw Reaves, Karey, RN RN kr2 Ada Chong2
--- NOTE | 2018-09-21 13:50 | EDPHYS ---
Physician Documentation [facility] Name: Wendy Ziegler Age: 63 yrs Sex: Female : 1955 Arrival Date: 09/21/2018 Time: 11:47 Bed 25 Private MD: Wellington Beal ED Physician Sundar Bah HPI: 09/21 13:42 This 63 yrs old Female presents to ER via Wheelchair with complaints of vernon CELLULITIS. 13:42 The patient presents with an abscess of the chest and left breast, The patient presents vernon with cellulitis of the left breast. Description: The affected area is small, confluent, draining, erythematous, raised. Onset: The symptoms/episode began/occurred 4 day(s) ago. Possible cause(s): unknown. Associated signs and symptoms: The patient has no apparent associated signs or symptoms. Modifying factors: the symptoms are alleviated by. Severity of symptoms: At their worst the symptoms were mild, in the emergency department the symptoms are unchanged. The patient has not experienced similar symptoms in the past. Historical: - Allergies: 12:03 Bactrim; aj 12:03 Codeine; aj 12:03 Remicade; aj 12:03 victoza; aj - PMHx: 12:03 chronic kidney disease; COPD; Diabetes - IDDM; Hyperlipidemia; Hypertension; Pneumonia; aj Rheumatoid Arthritis; Sleep Apnea; - PSHx: 12:03 None; aj - Immunization history:: Adult Immunizations up to date. - Social history:: Smoking status: Patient/guardian denies using tobacco. - Ebola Screening: : Patient negative for fever greater than or equal to 101.5 degrees Fahrenheit, and additional compatible Ebola Virus Disease symptoms Patient denies exposure to infectious person Patient denies travel to an Ebola-affected area in the 21 days before illness onset No symptoms or risks identified at this time. - Family history:: not pertinent. ROS: 13:42 Constitutional: Negative for fever, chills, and weight loss, Eyes: Negative for injury, vernon pain, redness, and discharge, ENT: Negative for injury, pain, and discharge, Neck: Negative for injury, pain, and swelling, Cardiovascular: Negative for chest pain, palpitations, and edema, Respiratory: Negative for shortness of breath, cough, wheezing, and pleuritic chest pain, Abdomen/GI: Negative for abdominal pain, nausea, vomiting, diarrhea, and constipation, Back: Negative for injury and pain, : Negative for injury, bleeding, discharge, and swelling, MS/Extremity: Negative for injury and deformity, Neuro: Negative for headache, weakness, numbness, tingling, and seizure, Psych: Negative for depression, anxiety, suicide ideation, homicidal ideation, and hallucinations, Allergy/Immunology: Negative for hives, rash, and allergies, Endocrine: Negative for neck swelling, polydipsia, polyuria, polyphagia, and marked weight changes, Hematologic/Lymphatic: Negative for swollen nodes, abnormal bleeding, and unusual bruising. 13:42 Skin: Positive for erythema, swelling, of the left breast. Exam: 13:42 Constitutional: This is a well developed, well nourished patient who is awake, alert, vernon and in no acute distress. Head/Face: Normocephalic, atraumatic. Eyes: Pupils equal round and reactive to light, extra-ocular motions intact. Lids and lashes normal. Conjunctiva and sclera are non-icteric and not injected. Cornea within normal limits. Periorbital areas with no swelling, redness, or edema. ENT: Nares patent. No nasal discharge, no septal abnormalities noted. Tympanic membranes are normal and external auditory canals are clear. Oropharynx with no redness, swelling, or masses, exudates, or evidence of obstruction, uvula midline. Mucous membranes moist. Neck: Trachea midline, no thyromegaly or masses palpated, and no cervical lymphadenopathy. Supple, full range of motion without nuchal rigidity, or vertebral point tenderness. No Meningismus. Chest/axilla: Normal chest wall appearance and motion. Nontender with no deformity. No lesions are appreciated. Cardiovascular: Regular rate and rhythm with a normal S1 and S2. No gallops, murmurs, or rubs. Normal PMI, no JVD. No pulse deficits. Respiratory: Lungs have equal breath sounds bilaterally, clear to auscultation and percussion. No rales, rhonchi or wheezes noted. No increased work of breathing, no retractions or nasal flaring. Abdomen/GI: Soft, non-tender, with normal bowel sounds. No distension or tympany. No guarding or rebound. No evidence of tenderness throughout. Back: No spinal tenderness. No costovertebral tenderness. Full range of motion. MS/ Extremity: Pulses equal, no cyanosis. Neurovascular intact. Full, normal range of motion. Neuro: Awake and alert, GCS 15, oriented to person, place, time, and situation. Cranial nerves II-XII grossly intact. Motor strength 5/5 in all extremities. Sensory grossly intact. Cerebellar exam normal. Normal gait. Psych: Awake, alert, with orientation to person, place and time. Behavior, mood, and affect are within normal limits. 13:42 Skin: cellulitis, that is minimal, induration, that is mild is noted, located on the left breast. Vital Signs: 12:03 BP 147 / 74; Pulse 76; Resp 20; Temp 97.2; Pulse Ox 93% on R/A; Weight 111.13 kg; aj Height 5 ft. 6 in. (167.64 cm); 13:44 BP 145 / 66; Pulse 75; Resp 18; Pulse Ox 96% ; kr2 12:03 Body Mass Index 39.54 (111.13 kg, 167.64 cm) MDM: 13:[address] [facility] 13:47 Data reviewed: vital signs, nurses notes, lab test result(s). [facility] 09/21 13:41 Order name: Wound Culture [facility] 09/21 13:41 Order name: Wound Care; Complete Time: 14:00 [facility] 09/21 13:46 Order name: Blood Glucose Level; Complete Time: 14:07 [facility] Administered Medications: 13:59 Drug: Doxycycline 100 mg Route: PO; kr2 14:40 Follow up: Response: No adverse reaction kr2 13:59 Drug: KeFLEX 500 mg Route: PO; kr2 14:40 Follow up: Response: No adverse reaction kr2 14:00 Drug: Bactroban Ointment 2 % 1 application Route: Topical; Site: wound; kr2 14:40 Follow up: Response: No adverse reaction kr2 14:07 Drug: Doxycycline 100 mg Route: PO; kr2 14:40 Follow up: Response: No adverse reaction kr2 14:39 Not Given (Patient Refused): Insulin Regular Human 10 units Sub-Q once kr2 Point of Care Testing: Blood Glucose: 14:07 Blood Glucose: 417 mg/dL; kr2 Ranges: Critical Glucose Levels:Adult <50 mg/dl or >400 mg/dl <40 mg/dl or >180 mg/dl Disposition: 09/21/18 13:49 Discharged to Home. Impression: Cutaneous abscess of chest wall - left breast, Type 1 diabetes mellitus, Obesity, unspecified. - Condition is Stable. - Discharge Instructions: Skin Abscess, Incision and Drainage, Obesity, Adult, Skin Abscess, [id number]. - Prescriptions for Bactroban 2 % Topical Ointment - Apply to affected area 1 application by TOPICAL route every 12 hours; 30 gram. Keflex 500 mg Oral Capsule - take 1 capsule by ORAL route every 6 hours for 10 days; 40 capsule. Doxycycline Hyclate 100 mg Oral Tablet - take 1 tablet by ORAL route every 12 hours; 20 tablet. Tramadol 50 mg Oral Tablet - take 1 tablet by ORAL route every 8 hours as needed; 24 tablet. - Medication Reconciliation Form, Thank You Letter, Antibiotic Education, Prescription Opioid Use form. - Follow up: Wellington Beal MD; When: 2 - 3 days; Reason: Recheck today's complaints, Continuance of care, Re-evaluation by your physician. Follow up: Robert Malhotra MD; When: 2 - 3 days; Reason: Recheck today's complaints, Re-evaluation by your physician. - Problem is new. - Symptoms have improved. Signatures: Dispatcher [employer] Lissa Callahan RN RN aj Anderson, Corey, MD MD cha Reaves, Karey, RN RN kr2 Corrections: (The following items were deleted from the chart) 14:45 13:49 09/21/2018 13:49 Discharged to Home. Impression: Cutaneous abscess of chest wall kr2 - left breast; Type 1 diabetes mellitus; Obesity, unspecified. Condition is Stable. Forms are Medication Reconciliation Form, Thank You Letter, Antibiotic Education, Prescription Opioid Use. Follow up: Wellington Beal; When: 2 - 3 days; Reason: Recheck today's complaints, Continuance of care, Re-evaluation by your physician. Follow up: Robert Malhotra; When: 2 - 3 days; Reason: Recheck today's complaints, Re-evaluation by your physician. Problem is new. Symptoms have improved. vernon
[2018-09-21] MEDS ORDERED: MUPIROCIN 2% OINT 22GM TUBE TOP ONE (14:03)
[2018-09-21] MEDS ORDERED: CEPHALEXIN 250 MG CAP ONE (14:03)
[2018-09-21] MEDS ORDERED: DOXYCYCLINE 100 MG CAP PO ONE ×2 (14:03→14:13)
[2018-09-21 14:50] VITALS: TEMP 97.2
[2018-09-21 14:51] VITALS: BP 145/66; O2SAT 96
== END 2018-09-21 14:45 | disposition home or self-care (01) ==
LOC: ER 11:43
DX: L02.213 Cutaneous abscess of chest wall (principal); E10.9 Type 1 diabetes mellitus without complications; E66.9 Obesity, unspecified; Z68.39 Body mass index [BMI] 39.0-39.9, adult
CPT/HCPCS: 82962; 87070; 87077; 87186; 87205; 99284

== ENCOUNTER 2022-05-17 07:24 | Day surgery (SDC) | payer BC, OTHER ==
[2022-05-13 12:19] LABS: SARS-CoV-2 Antigen Rapid Res Negative (Negative)
[2022-05-17] MEDS ORDERED: NA CHLORIDE 0.9% 500 ML ONE (07:58)
[2022-05-17] MEDS ORDERED: NA CHLORIDE 0.9% 1,000 ML ONE (08:03)
[2022-05-17] MEDS ORDERED: LIDOCAINE 1% W/EPI 1:100,000 10 ML VIAL ONE (08:03)
[2022-05-17] MEDS ORDERED: propofoL 200 MG/20 ML VIAL IV ONE (10:16)
[2022-05-17] MEDS ORDERED: MIDAZOLAM HCL 2 MG/2 ML INJ ONE (10:16)
[2022-05-17] MEDS ORDERED: FENTANYL CITR 100 MCG/2 ML ONE (10:16)
[2022-05-17] MEDS ORDERED: LIDOCAINE 1% MPF 5 ML VIAL ONE (10:16)
--- NOTE | 2022-05-17 11:09 | P.BOP ---
Preoperative diagnosis: PMB Postoperative diagnosis: PMB, Left buttock abscess Primary procedure: Hysteroscopy d/c, I&D left buttock abscess Sock Boarder: NONE,NONE Estimated blood loss: min Specimen: EMC polyp Findings: tiny rt fundal post wall sessile polyp, left buttock 1cm abscess Anesthesia: MAC Complications: None Transferred to: Recovery Room Condition: Good
[2022-05-17 12:40] VITALS: BP 137/52; TEMP 97.7; O2SAT 97
== END 2022-05-17 11:50 | disposition home or self-care (01) ==
LOC: OR 07:24
PROVIDERS: ATTEND Obstetrics & Gynecology
PROC: 0UJD8ZZ Inspection of Uterus and Cervix, Via Natural or Artificial Opening Endoscopic (ICD-10-PCS; 2022-05-17)
PROC: 0J990ZZ Drainage of Buttock Subcutaneous Tissue and Fascia, Open Approach (ICD-10-PCS; 2022-05-17)
PROC: 0UDB7ZX Extraction of Endometrium, Via Natural or Artificial Opening, Diagnostic (ICD-10-PCS; principal; 2022-05-17 08:30)
DX: N95.0 Postmenopausal bleeding (principal); R10.2 Pelvic and perineal pain; R39.15 Urgency of urination; N95.2 Postmenopausal atrophic vaginitis; E11.9 Type 2 diabetes mellitus without complications; N18.6 End stage renal disease; I10 Essential (primary) hypertension; N84.0 Polyp of corpus uteri; Z20.822 Contact with and (suspected) exposure to COVID-19
CPT/HCPCS: 36415; 82947; 88305; 87811; 58558; 10060; J2704; J2250; J3010; J7040; J7030

== ENCOUNTER 2022-07-13 08:54 | Inpatient (IN) | payer BC, OTHER ==
--- OUTSIDE RECORDS SUMMARY | 2022-07-13 09:35 | XMS REPORT | Continuity of Care Document ---
:1955 Author Organization [facility] t Address [address] [place] [address] Care Team Providers Name Role Phone Lian PillaiMolly Wellington Sextonniranjanleonidas Primary Care Physician [phone] Jh DEICER FINISHER-C, Alisa Gonzales Attending Clinician [phone] Austyn Moctezuma MD Attending Clinician JEROD LOUIS Attending Clinician Unavailable ANA NAZARIO Attending Clinician Unavailable Kia Hull MA Attending Clinician Unavailable Jeannie Alcazar MA Attending Clinician Unavailable ERIK NOYOLA Attending Clinician Unavailable MELANIE DUFF Attending Clinician Unavailable MD ERIK NOYOLA Attending Clinician Unavailable SHADIA MEJÍA Attending Clinician Unavailable DR LYSSA COTTON Attending Clinician Unavailable MCKINLEY GODOY Attending Clinician Unavailable DIANNE DODSON Admitting Clinician Unavailable MELANEI DUFF Admitting Clinician Unavailable ERIK NOYOLA Admitting Clinician Unavailable MD ERIK NOYOLA Admitting Clinician Unavailable DR LYSSA COTTON Admitting Clinician Unavailable MCKINLEY GODOY Admitting Clinician Unavailable Payers Payer Name Policy Type Policy Number Effective Date Expiration Date S [facility] [id number] PPO AND [id number] 2020 OUT OF STATE 00:00:00 BCBS OS [id number] 2016 POS/PPO/EPO 00:00:00 MEDICARE A B [id number] 2020 00:00:00 Problems Condition Condition Condition Status Onset Resolution Last Treating Co mments Source Name Details Category Date Date Treatment Clinician Date Kidney Kidney Disease Active Methodi transplant transplant 03-18 st candidate candidate 00:00: Hosp [facility] 00 l Dialysis Dialysis Disease Active Overview: Me thodi AV fistula AV fistula 01-[address] malfunctio malfunctio 00:00: g of this Hospita n n 00 note l might be different from the original. Added automatic ally from request for surgery [id number] End stage End stage Disease Active Overview: Methodi renal renal 03-[address] disease disease 00:00: g of this Hospi ta 00 note l might be different from the original. 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 kidney 00:00: Hospita 00 l History of History of Disease Active M ethodi ATN ATN 6-10 st 00:00: Hospita 00 l Type 2 Type 2 Disease Active Methodi diabetes diabetes [facility] st mellitus mellitus 00:00: Hospit a with with 00 l chronic chronic kidney kidney disease, disease, with with long-term long-term current current use of use of insulin insulin Acute Acute Disease Active 2016-[address] pericardit pericardit 11-22 Edyta kes is is 00:00: Medical 00 Center LBBB (left LBBB (left Disease Active 2016-[address] bundle bundle 11-21 [facility] branch branch 00:00: Medical block) block) 00 Center Pericardia Pericardia Disease Active 2016-[address] l effusion l effusion 11-21 Edyta kes 00:00: Medical 00 Center Recurrent Recurrent Disease Active 2016-[address] right right 11-21 [facility] pleural pleural 00:00: Medical effusion effusion 00 Center Uncontroll Uncontroll Disease Active 2016-[address] ed type 2 ed type 2 11-21 Luke s diabetes diabetes 00:00: Medica l mellitus mellitus 00 Center with with complicati complicati on, with on, with long-term long-term current current use of use of insulin insulin CKD CKD Disease Active 2016-[address] (chronic (chronic 11-21 Lu kidney kidney 00:00: Medical disease) disease) 00 Center stage 4, stage 4, GFR 15-29 GFR 15-29 ml/min ml/min Hypoxemia Hypoxemia Disease Active 2016-[address] 11-21 [facility] 00:[facility]: Medical 00 Center Pneumonia Pneumonia Disease Active 2016-[address] of both of both 11-20 [facility] lungs due lungs due 00:00: Medi mayo to to 00 Center infectious infectious organism organism Allergies, Adverse Reactions, Alerts Allergy Allergy Status Severity Reaction(s) Onset Inactive Treating Comm ents Source Name Type Date Date Clinician Sulfamet Propensi Active GI Nausea Method i hoxazole ty to Intolerance 6-[address] -Trimeth adverse 00:00: VomitingL Hosp mariela oprim reaction 00 ip and l s to eye drug swelling Codeine Propensi Active GI Nausea Methodi ty to Intolerance 6-[address] adverse 00:00: Vomiting, Hospit a reaction 00 Dizziness l s to "Creepy drug Dreams" Inflixim Propensi Active Other (See 0 Slurred M ethodi ab ty to Comments) 6-[address] adverse 00:00: Hospita reaction 00 l s to drug Liraglut Propensi Active Other (See 0 Extreme M ethodi tyler ty to Comments) 6-[address] adverse 00:00: miaCramps Hospit a reaction 00 l s to drug INFLIXIM Allergy Active High Hives 2016-09 [facility] AB 11-20 00:00: 00 Liraglut Allergy Active Other 2016-09 Leg [facility] tyler to 11-20 crampingE Health substanc 00:00: xtreme e 00 Hypoglyce miaCramps LIRAGLUT Allergy Active High Other 2016-09 [facility] TYLER 11-20 00:00: 00 Sulfamet Allergy Active Swelling 2016-09 Nausea UT hoxazole to 11-20 and Health -Trimeth substanc 00:00: VomitingL oprim e 00 ip and eye swellingN ausea and VomitingL ip and eye swelling Sulfamet Drug Active Nausea And 2016-[address] hoxazole Allergy Vomiting, 11-20 Luke s -Trimeth Swelling 00:00: Medica l oprim 00 Center Inflixim Drug Active Hives, 2016-[address] ab Allergy Itching 11-20 [facility] 00:[facility]: Medical 00 Center Liraglut Drug Active Other (See 2016-[address] tyler Allergy Comments) 11-20 cramping Luke s 00:00: Medical 00 Center CODEINE Allergy Active N\\T\\V 2016-09 [facility] 11-20 00:00: 00 Codeine Propensi Active Other 2016-09 Nausea UT ty to 11-20 and Health adverse 00:00: Vomiting, reaction 00 Dizziness s "Creepy Dreams"Ot her reaction( s): GI Intoleran ceNausea and Vomiting, Dizziness "Creepy Dreams" Inflixim Allergy Active Shortness of 2016-09 Slurred UT ab to breath 11-20 SpeechSlu Health substanc 00:00: rred e 00 Speech SULFAMET Allergy Active High N\\T\\V 2016-09 [facility] HOXAZOLE 11-20 -TRIMETH 00:00: OPRIM 00 Family History Family Member Diagnosis Comments Start Date Stop Date Source Natural brother Diabetes [facility] Natural brother Drug abuse [facility] Natural daughter Asthma [facility] Maternal aunt Diabetes [facility] Maternal grandmother Diabetes [facility] Natural mother Diabetes [facility] Natural mother Hearing loss [facility] Natural mother Heart disease [facility] Natural mother Diabetes [facility] Natural father [facility] Social History Social Habit Start Date Stop Date Quantity Comments Source History SDOH [facility] Alcohol Comment Hospital History [facility] Drinks History [facility] Exposure to 2022-04-15 2022-04-25 Not sure [facility] SARS-CoV-2 00:00:00 09:16:00 (event) Tobacco use and 2022-04-25 2022-04-25 Smokeless tobacco [facility] exposure 00:00:00 00:00:00 non-user Alcohol intake 2020-03-19 2020-03-19 [facility] 00:00:00 00:00:00 non-drinker Hospital (finding) History SDHI 2020-03-18 2020-03-18 1 [facility] Frequency 00:00:00 00:00:00 Hospita l Sex Ass[birth year] At [birth year] F [facility] 00:[facility] 00:00:00 Smoking Status Start Date Stop Date Source Tobacco smoking consumption unknown [facility] Never smoked tobacco [facility] Medications Ordered Filled Start Stop Current Ordering Indication Dosage Frequency Signature Comments Components Source Medication Medication Date Date Medication? Clinician (SIG) Name Name traMADol 2021- No 50mg Q8H Take 50 mg Me thodi (ULTRAM) 50 8-16 08-[address] mg tablet 10:26: 00:00 every 8 Hosp mariela 57 :00 (eight) l hours as needed for moderate pain. allopurinol Yes 100mg QD Take 100 M ethodi (ZYLOPRIM) 8-[address] 100 MG 10:01: mouth Hospita tablet 01 daily. l aspirin Yes 81mg QD Take 81 mg Meth vivien (ECOTRIN) 8-[address] 81 MG 10:01: daily. Hospita enteric 01 l coated tablet loratadine Yes 10mg Q24H Take 10 mg M ethodi (CLARITIN) 8-[address] 10 mg 10:01: daily as Hospita tablet 01 needed for l allergies. docosahexan Yes 1000mg QD Take 1,000 Methodi oic 8-[address] acid/epa 10:01: mouth Hospita (FISH OIL 01 daily. l ORAL) fluticasone Yes 1{puff} QD Inhale 1 Methodi -umeclidin- 8-[address] vilanter 10:01: nightly. Hospi ta (TRELEGY 01 l ELLIPTA) 100-62.5-25 mcg blister with device powder for inhalation insulin Yes 10U [id number] Inject 10 Methodi lispro 8-[id number] (HumaLOG) 10:01: 3D under the Hos binh 100 unit/mL 01 skin 3 l injection (three) times a day before meals. insulin Yes 20U QD Inject 20 Metho di GLARGINE 8-[address] (LANTUS) 10:01: under the Hosp mariela 100 unit/mL 01 skin l injection nightly. (vial) furosemide Yes 40mg Q.5D Take 40 mg M ethodi (LASIX) 40 8-[address] mg tablet 10:01: (two) Hospita 01 times a l day. hydroxychlo 2022-0 Yes 200mg Q.5D Take 200 M ethodi roquine 8-[address] (PLAQUENIL) 10:01: mouth 2 Hos binh 200 mg 01 (two) l tablet times a day. famotidine 2022-0 Yes 20mg QD Take 20 mg M ethodi (PEPCID) 20 8-[address] MG tablet 10:01: daily. Hospit a 01 l pravastatin 2022-0 Yes 40mg QD Take 40 mg Methodi (PRAVACHOL) 8-[address] 40 MG 10:01: nightly. Hospita tablet 01 l ascorbic 2022-0 Yes 1000mg QD Take 1,000 M ethodi acid, 8-[address] vitamin C, 10:01: mouth Hospit a (VITAMIN C) 01 daily. l 1000 MG tablet carvediloL 2-0 Yes 6.25mg Q.5D Take 6.25 Methodi (COREG) 8-[address] 6.25 MG 10:01: mouth 2 Hospita tablet 01 (two) l times a day with meals. DULoxetine 2022-0 Yes 30mg Q2D Take 30 mg M ethodi (CYMBALTA) 8-[address] 30 MG 10:01: every Hospita capsule 01 other day. l hydrALAZINE 2022-0 Yes 25mg Q.[id number] Take 25 mg Methodi (APRESOLINE 8-16 [id number] [address] mouth 3 st ) 25 MG 10:01: 3D (three) Hospita tablet 01 times a l day. isosorbide 2022-0 Yes 20mg Q.[id number] Take 20 mg Methodi dinitrate 8-16 [id number] mouth [address] (ISORDIL) 10:01: 3D (three) Hospi ta 20 MG 01 times a l tablet day. leflunomide 2022-0 Yes 20mg QD Take 20 mg Methodi (ARAVA) 20 8-[address] MG tablet 10:01: daily. Hospit a 01 l olopatadine 2022-0 Yes 1[drp] Q.5D Administer Methodi (PATANOL) 8-[address] 0.1 % 10:01: both eyes Hospita ophthalmic 01 2 (two) l solution times a day. abatacept 2021-0 Yes Q30D Inject Method i (ORENCIA 8-[address] SUBQ) 10:01: skin every Hospit a 01 30 l (thirty) days. iron 2021-0 Yes Q7D Infuse Methodi sucrose 8-[address] complex 10:01: venous Hospita (VENOFER 01 catheter l IV) once a week. No known No No known [facility] medications 04-25 medication He alth 09:27: s 58 carvediloL 2020-0 Yes 6.25mg Q.5D Take 6.25 Methodi (COREG) 6-[address] 6.25 MG 10:22: mouth 2 Hospita tablet 40 (two) l times a day with meals. DULoxetine 2020-0 Yes 30mg Q2D Take 30 mg M ethodi (CYMBALTA) 6-[address] 30 MG 10:22: every Hospita capsule 40 other day. l hydrALAZINE 2020-0 Yes 25mg Q.[id number] Take 25 mg Methodi (APRESOLINE 6-25 [id number] by mouth 3 st ) 25 MG 10:22: 3D (three) Hospita tablet 40 times a l day. isosorbide 2020-0 Yes 20mg Q.[id number] Take 20 mg Methodi dinitrate 6-[id number] mouth [address] (ISORDIL) 10:22: 3D (three) Hospi ta 20 MG 40 times a l tablet day. leflunomide 2020-0 Yes 20mg QD Take 20 mg Methodi (ARAVA) 20 6-[address] MG tablet 10:22: daily. Hospit a 40 l olopatadine 2020-0 Yes 1[drp] Q.5D Administer Methodi (PATANOL) 6-[address] 0.1 % 10:22: both eyes Hospita ophthalmic 40 2 (two) l solution times a day. abatacept 2020-0 Yes Q30D Inject Method i (ORENCIA 6-[address] SUBQ) 10:22: skin every Hospit a 40 30 l (thirty) days. iron 2020-0 Yes Q7D Infuse Methodi sucrose 6-[address] complex 10:22: venous Hospita (VENOFER 40 catheter l IV) once a week. docosahexan 2020-0 Yes 1000mg QD Take 1,000 Methodi oic 6-[address] acid/epa 21:56: mouth Hospita (FISH OIL 12 daily. l ORAL) fluticasone 2020-0 Yes 1{puff} QD Inhale 1 Methodi -umeclidin- 6-[address] vilanter 21:56: nightly. Hospi ta (TRELEGY 12 l ELLIPTA) 100-62.5-25 mcg blister with device insulin 2020-0 Yes 10U Q.[id number] Inject 10 Methodi lispro 6-[id number] (HumaLOG) 21:56: 3D under the Hos binh 100 unit/mL 12 skin 3 l injection (three) times a day before meals. insulin 2020-0 Yes 20U QD Inject 20 Metho di GLARGINE 6-[address] (LANTUS) 21:56: under the Hosp mariela 100 unit/mL 12 skin l injection nightly. (vial) furosemide 2020-0 Yes 40mg Q.5D Take 40 mg M ethodi (LASIX) 40 6-[address] mg tablet 21:56: (two) Hospita 12 times a l day. hydroxychlo 2020-0 Yes 200mg Q.5D Take 200 M ethodi roquine 6-[address] (PLAQUENIL) 21:56: mouth 2 Hos binh 200 mg 12 (two) l tablet times a day. famotidine 2020-0 Yes 20mg QD Take 20 mg M ethodi (PEPCID) 20 6-[address] MG tablet 21:56: daily. Hospit a 12 l pravastatin 2020-0 Yes 40mg QD Take 40 mg Methodi (PRAVACHOL) 6-[address] 40 MG 21:56: nightly. Hospita tablet 12 l ascorbic 2020-0 Yes 1000mg QD Take 1,000 M ethodi acid, 6-[address] vitamin C, 21:56: mouth Hospit a (vitamin C) 12 daily. l 1000 MG tablet traMADol 2020-0 Yes 50mg Q8H Take 50 mg Met hodi (ULTRAM) 50 6-[address] mg tablet 21:56: every 8 Hospi ta 12 (eight) l hours as needed for moderate pain. allopurinol Yes 100mg QD Take 100 M ethodi (ZYLOPRIM) 6-[address] 100 MG 21:56: mouth Hospita tablet 12 daily. l aspirin 2019-0 Yes 81mg QD Take 81 mg Meth vivien (ECOTRIN) 6-[address] 81 MG 21:56: daily. Hospita enteric 12 l coated tablet loratadine Yes 10mg Q24H Take 10 mg M ethodi (CLARITIN) 6-[address] 10 mg 21:56: daily as Hospita tablet 12 needed for l allergies. aspirin 81 2017- Yes 81mg QD Take [address] MG EC 1-04 by mouth [facility] tablet 18:58: daily. Medical 56 Center amLODIPine Yes 10mg QD Take [address] (NORVASC) 1-04 by mouth [facility] 10 MG 18:58: daily. Medical tablet 56 Center calcitriol Yes .25ug QD Take 0.[address] (ROCALTROL) 1-04 mcg by [facility] 0.25 MCG 18:58: mouth Medical capsule 56 daily. Center loratadine Yes 10mg QD Take [address] (CLARITIN) 1-04 by mouth [facility] 10 mg 18:58: daily. Medical tablet 56 Center DULoxetine Yes 60mg QD Take [address] (CYMBALTA) 1-04 by mouth [facility] 60 MG 18:58: daily. Medical capsule 56 Center mometasone- Yes 2{puff} Q.5D Inhale [address] formoterol 1-04 puffs by [facility] (DULERA) 18:58: mouth via Medi mayo 200-5 56 inhaler 2 Center mcg/actuati (two) on inhaler times daily. omega Yes 1600mg QD Take 1,[address] 3-dha-epa-f 1-04 mg by [facility]ukes rosalia oil 18:58: mouth Medical (FISH OIL) 56 daily. [place] 1,600-500-8 00 mg/5 mL Liqd multivitami 2017-0 Yes 1{tbl} QD Take [address] (FOLBEE) 1-04 tablet by Martina es 2.5-25-1 mg 18:58: mouth Medic al Tab tablet 56 daily. Center hydroxychlo 2018-0 Yes 200mg Q.5D Take [address] roquine 1-04 mg by [facility]ukes (PLAQUENIL) 18:58: mouth 2 Med ical 200 mg 56 (two) Center tablet times daily. ipratropium 2018-0 Yes 2{spray Q.5D [address] (ATROVENT) 1-04 } by Nasal [facility] 0.06 % 18:58: route 2 Medical 0.06% nasal 56 (two) Center spray times daily. leflunomide 2018-0 Yes 20mg QD Take [address] (ARAVA) 20 1-04 by mouth [facility]ukes MG tablet 18:58: daily. Medica l 56 Center ABATACEPT 2018-0 Yes 1000mg Inject [facility] (ORENCIA 1-04 1,000 mg [facility]ukes SUBQ) 18:58: subcutaneo Medica l 56 usly every Center 30 (thirty) days. pravastatin 2018-0 Yes 10mg QD Take [address] (PRAVACHOL) 1-04 by mouth Luke s 10 MG 18:58: daily. Medical tablet 56 Center cycloSPORIN 2018-0 Yes 1[drp] Place [address] E 1-04 drop into [facility]ukes (RESTASIS) 18:58: both eyes Me dical 0.05 % 56 every 12 Center ophthalmic (twelve) emulsion hours. ascorbic 2018-0 Yes 1000mg QD Take 1,[address] acid, 1-04 mg by [facility] vitamin C, 18:58: mouth Medica l (VITAMIN C) 56 daily. Center 1000 MG tablet cholecalcif 2018-0 Yes 1000U Q.5D Take 1,[address] rojas 1-04 Units by [facility]ukes (VITAMIN 18:58: mouth 2 Medica l D3) 400 56 (two) Center unit Tab times tablet daily. insulin 2018-0 Yes 5U Inject [address] lispro 1-04 Units [facility]ukes (HUMALOG) 00:00: subcutaneo Me dical 100 unit/mL 00 usly 3 Center injection (three) times daily before meals. insulin 2018-0 Yes 20U QD Inject 20 [facility] t glargine 1-04 Units [facility] (LANTUS) 00:00: subcutaneo Med ical 100 unit/mL 00 usly Center injection nightly Use as directed . Immunizations Ordered Immunization Filled Immunization Date Status Commen ts Source Name Name COVID-19 Pfizer 12 & 2022-03-22 [facility]pleted [facility] Vaccination (CAN 00:00:00 CAP-DO NOT DILUTE) Vital Signs Vital Name Observation Time Observation Value Comments Source Systolic blood 2022-04-25 14:25:00 130 mm[Hg] [facility] Diastolic blood 2022-04-25 14:25:00 68 mm[Hg] [facility] Heart rate 2022-04-25 14:25:00 96 /min [facility] height 2022-04-25 14:25:00 167.6 cm [facility] Body weight 2022-04-25 14:25:00 88.451 kg [facility] BMI 2022-04-25 14:25:00 31.47 kg/m2 [facility] WEIGHT 2022-04-07 10:25:00 84.6 kg WEIGHT 2022-04-07 07:15:00 87.5 kg WEIGHT 2022-04-05 23:15:00 82.827 kg WEIGHT 2022-04-07 10:25:00 84.6 kg WEIGHT 2022-04-07 07:15:00 87.5 kg WEIGHT 2022-04-05 23:15:00 82.827 kg Systolic blood 2022-05-10 14:58:00 148 mm[Hg] [facility] Diastolic blood 2022-05-10 14:58:00 71 mm[Hg] [facility] pressure Heart rate 2022-05-10 14:58:00 67 /min [facility] Body temperature 2022-05-10 14:58:00 36.39 Jeanette [facility] Body height 2022-05-10 14:58:00 167.6 cm [facility] Body weight 2022-05-10 14:58:00 83.19 kg [facility] BMI 2022-05-10 14:58:00 29.60 kg/m2 [facility] Oxygen saturation in 2022-05-10 14:58:00 96 /min [facility] Arterial blood by Pulse oximetry Procedures Procedure Date / Time Performed Performing Clinician [facility] e US CAROTID DUPLEX 2022-05-10 15:00:00 Alisa Peñaloza [facility] BILATERAL [place] US ANKLE BRACHIAL 2022-01-31 19:38:00 [facility] INDEX [place]-Hsi US DUPLEX ARTERIAL 2022-01-31 19:00:00 [facility] LOWER EXTREMITY [facility] BILATERAL Plan of Care Planned Activity Planned Date Details Comments Source Future Scheduled 2022-07-13 HEPATITIS B VACCINES [facility] Test 09:32:25 (1 of 3 - 3-dose series) [code = HEPATITIS B VACCINES (1 of 3 - 3-dose series)] Future Scheduled 2022-07-13 65+ [facility] 09:32:25 VACCINE (1 - PCV) [code = 65+ PNEUMOCOCCAL VACCINE (1 - PCV)] Future Scheduled 2022-07-13 DIABETES: RETINAL EYE [facility] Test 09:32:25 EXAM [code = DIABETES: RETINAL EYE EXAM] Future Scheduled 2022-07-13 DIABETIC FOOT EXAM [facility] Test 09:32:25 [code = DIABETIC FOOT EXAM] Future Scheduled 2022-07-13 SHINGLES VACCINES ([address] [facility] Test 09:32:25 of 2) [code = SHINGLES VACCINES (1 of 2)] Future Scheduled 2022-07-13 COLONOSCOPY SCREENING [facility] Test 09:32:25 [code = COLONOSCOPY SCREENING] Future Scheduled 2022-07-13 BREAST CANCER [facility] Test 09:32:25 SCREENING [code = BREAST CANCER SCREENING] Future Scheduled 2022-07-13 COVID-19 VACCINE (3 - Me [facility] Test 09:32:25 Booster for Pfizer series) [code = COVID-19 VACCINE (3 - Booster for Pfizer series)] Future Scheduled 2022-07-13 INFLUENZA VACCINE [facility] Test 09:32:25 [code = INFLUENZA VACCINE] Future Scheduled 2021-10-26 COVID-19 VACCINE (1) [facility] Test 13:17:33 [code = COVID-19 VACCINE (1)] Future Scheduled 2021-10-26 65+ PNEUMOCOCCAL [facility] Test 13:17:33 VACCINE (1 of 4 - PCV13) [code = 65+ PNEUMOCOCCAL VACCINE (1 of 4 - PCV13)] Future Scheduled 2021-10-26 [facility]ABETES: [facility] Test 13:17:33 EXAM [code = DIABETES: RETINAL EYE EXAM] Future Scheduled 2021-10-26 [facility] Test 13:17:33 [code = DIABETIC FOOT EXAM] Future Scheduled 2021-10-26 COLONOSCOPY SCREENING [facility] Test 13:17:33 [code = COLONOSCOPY SCREENING] Future Scheduled 2021-10-26 SHINGLES VACCINES (#1) M [facility] Test 13:17:33 [code = SHINGLES VACCINES (#1)] Future Scheduled 2021-10-26 [facility] Test 13:17:33 SCREENING [code = BREAST CANCER SCREENING] Future Scheduled 2021-10-26 INFLUENZA VACCINE [facility] Test 13:17:33 [code = INFLUENZA VACCINE] Future Scheduled 2021-10-26 Screening for [facility] Test 13:17:33 malignant neoplasm of cervix (procedure) [code = 977710047] Encounters Start End Encounter Admission Attending Care Care Encounter Source Date/Time Date/Time Type Type Clinicians Facility Department ID 2022-07-12 Outpatient [facility] [id number] [place] 10:12:26 [id number] [facility] 2022-05-10 2022-05-10 Office Jh, 1.2.840.1 [id number] Methodi 10:00:00 10:20:12 Visit Alisa 39997.1.[address] [facility]7 Hosp mar[facility]a .3.983659 l .8 2022-05-10 2022-05-10 Travel 1.2.840.1 [id number] [id number] Methodi 00:00:00 00:00:[address] 3.430.2.7 0.2.7.3.698 Ho spita .3.106024 084.8 l .8 2022-05-10 2022-05-10 Outpatient [facility] [id number] [address] 00:00:00 00:00:[address] 2022-05-10 2022-05-10 Outpatient [facility] [id number] [address] [place] [address] 00:00:00 00:00:[address] 2022-04-25 2022-04-25 Office GUMARO Moctezuma 6400 1.2.840.114 [id number] [place] 10:00:00 10:28:10 Visit Austyn YEBOAH 350.1.13.58 Health 9.2.7.2.686 [id number] 2022-04-05 2022-04-07 Inpatient ER HERIBERTO, [facility] 2048 [id number] [facility] 21:24:00 12:51:00 J[place]OD [place] 2022-03-30 2022-03-30 Orders Kurtis, 1.2.840.1 [id number] Methodi 00:00:00 00:00:00 Only Kia 27706.1.[address] 3.430.2.7 Hospit a .3.459113 l .8 2022-03-22 2022-03-22 Telephone Rhianna, [facility]TP 6400 1.2.840.114 [id number] [place] 00:00:00 00:00:00 Austyn YEBOAH 350.1.13.58 Health 9.2.7.2.686 [id number] 0 2022-03-03 2022-03-04 Telephone Peñaloza, 1.2.840.1 [id number] Methodi 14:30:00 08:18:38 Consult Alisa 40483.1.[address] [place] 3.430.2.7 Hosp mariela .3.435185 l .8 2022-03-03 2022-03-04 Outpatient [facility] [id number] [address] 00:00:00 00:00:[address] 2022-03-03 2022-03-03 Travel 1.2.840.1 [id number] [id number] Methodi 00:00:00 00:00:[address] 3.430.2.7 0.2.7.3.698 Ho spita .3.069472 084.8 l .8 2022-01-31 2022-01-31 Travel 1.2.840.1 1.2.255.880 [id number] Methodi 00:00:00 00:00:[address] 3.430.2.7 0.2.7.3.698 Ho spita .3.279003 084.8 l .8 2022-01-31 2022-01-31 Leeann Alcazar, 1.2.840.1 [id number] Methodi 00:00:00 00:00:00 Only Crysandria 55863.1.1 505 s t 3.430.2.7 Hospit a .3.383848 l .8 2022-01-31 2022-01-31 Outpatient [facility] [id number] [address] 00:00:00 00:00:[address] ERI[address] 2022-01-31 2022-01-31 [id number] [address] 00:00:00 00:00:[address] ERIK [address] 2022-01-26 2022-01-26 Orders Alcazar, 1.2.840.1 [id number] Methodi 00:00:00 00:00:00 Only Crysandria 12350.1.1 138 s t 3.430.2.7 Hospit a .3.677439 l .8 2022-01-25 2022-01-25 Telephone Dennys, 1.2.840.1 [id number] Methodi 00:00:00 00:00:00 Erik 99178.1.1 352 [facility] 3.430.2.7 Hosp mariela .3.937445 l .8 2020-04-30 2020-04-30 Outpatient [facility] 00:00:00 00:00:00 [id number] 2020-03-18 2020-03-18 [facility] [facility] 021 [id number] [facility] 00:00:00 00:00:00 MELANIE [address] 2020-02-14 2020-02-14 Outpatient [facility] [id number] [facility] 00:00:00 00:00:[address] 2020-02-07 2020-02-07 Outpatient [facility] [id number] 242 [facility] 00:00:00 00:00:00 ERIK 924 Method i 2020-02-03 2020-02-03 Outpatient DENNYS [facility] [id number] 362 [facility] 00:00:00 00:00:00 ERIK 450 Method i 2020-01-29 2020-01-29 Outpatient DENNYS [facility] [id number] [facility] 00:00:00 00:00:00 ERIK 806 Method i 2019-04-10 2019-04-10 Outpatient KYM [facility] [id number] 233 [facility] 00:00:00 00:00:00 SHADIA 662 Meth vivien 2017-12-20 2017-12-20 Outpatient C LYSSA [facility] RIVEROACHERI 1 [id number] [facility] 05:45:00 10:51:00 C [facility] Results Test Description Test Time Test Comments Results Result Comments Source POCT-GLUCOSE METER 2022-04-07 12:07:56 Test Item Value Reference Range Interpretation Comme nts POC-GLUCOSE METER (BEAKER) 191 mg/dL 70-110 H : TESTED AT [facility] [address] [place] [address] (test code = 1538) [place], [address]: Senior Systems Engineer/Techni jani ID = [id number] for ANNIKA VENTURA CBC W/PLT COUNT & AUTO [id number] 09:07:14 Test Item Value Reference Range Interpretation Comments WHITE BLOOD CELL COUNT 8.0 K/ L 3.5-10.5 (BEAKER) (test code = 775) RED BLOOD CELL COUNT 2.56 M/ L 3.93-5.22 L (BEAKER) (test code = 761) HEMOGLOBIN (BEAKER) 8.3 GM/DL 11.2-15.7 L (test code = 410) HEMATOCRIT (BEAKER) 26.2 % 34.1-44.9 L (test code = 411) MEAN CORPUSCULAR 102.3 fL 79.4-94.8 H Discordant result VOLUME (BEAKER) (test compar ed to previous code = 753) result. Clinica l correlation req uired MEAN CORPUSCULAR 32.4 pg 25.6-32.2 H HEMOGLOBIN (BEAKER) (test code = 751) MEAN CORPUSCULAR 31.7 GM/DL 32.2-35.5 L HEMOGLOBIN CONC (BEAKER) (test code = 752) RED CELL DISTRIBUTION 18.3 % 11.7-14.4 H WIDTH (BEAKER) (test code = 412) PLATELET COUNT 284 K/CU MM 150-450 (BEAKER) (test code = 756) MEAN PLATELET VOLUME 10.4 fL 9.4-12.3 (BEAKER) (test code = 754) NUCLEATED RED BLOOD 0 /100 WBC 0-0 CELLS (BEAKER) (test code = 413) NEUTROPHILS RELATIVE 41 % PERCENT (BEAKER) (test code = 429) LYMPHOCYTES RELATIVE 26 % PERCENT (BEAKER) (test code = 430) MONOCYTES RELATIVE 11 % PERCENT (BEAKER) (test code = 431) EOSINOPHILS RELATIVE 21 % PERCENT (BEAKER) (test code = 432) BASOPHILS RELATIVE 1 % PERCENT (BEAKER) (test code = 437) NEUTROPHILS ABSOLUTE 3.28 K/ L 1.56-6.13 COUNT (BEAKER) (test code = 670) LYMPHOCYTES ABSOLUTE 2.05 K/ L 1.18-3.74 COUNT (BEAKER) (test code = 414) MONOCYTES ABSOLUTE 0.87 K/ L 0.24-0.36 H COUNT (BEAKER) (test code = 415) EOSINOPHILS ABSOLUTE 1.69 K/ L 0.04-0.36 H COUNT (BEAKER) (test code = 416) BASOPHILS ABSOLUTE 0.08 K/ L 0.01-0.08 COUNT (BEAKER) (test code = 417) IMMATURE 0 % 0-1 GRANULOCYTES-RELATIVE PERCENT (BEAKER) (test code = 2801) BASIC METABOLIC [id number] 07:44:21 Test Item Value Reference Range Interpretation Comments SODIUM (BEAKER) 132 meq/L 136-145 L (test code = 381) POTASSIUM (BEAKER) 4.1 meq/L 3.5-5.1 (test code = 379) CHLORIDE (BEAKER) 96 meq/L 98-107 L (test code = 382) CO2 (BEAKER) (test 27 meq/L 22-29 code = 355) BLOOD UREA NITROGEN 41 mg/dL 7-21 H (BEAKER) (test code = 354) CREATININE (BEAKER) 6.26 mg/dL 0.57-1.25 H (test code = 358) GLUCOSE RANDOM 268 mg/dL 70-105 H (BEAKER) (test code = 652) CALCIUM (BEAKER) 9.3 mg/dL 8.4-10.2 (test code = 697) EGFR (BEAKER) (test 7 mL/min/1.73 ESTIMAT ED GFR IS code = 1092) sq m NOT ACCURATE CREATININE CLEARANCE IN PREDICTING GLOMERULAR FILTRATION RATE . ESTIMATED GFR I S NOT APPLICABLE FOR DIALYSIS PATIEN TS. Senior Systems Engineer ID - BSPOCT-GLUCOSE [id number] 21:59:20 Test Item Value Reference Range Interpretation Comments POC-GLUCOSE METER 210 mg/dL 70-110 H : TESTED A T [facility] 6720 (BEAKER) (test code = [facility], 1538) [address]: Senior Systems Engineer/Techni jani ID = [id number] for Br istol, Nykia POCT-GLUCOSE [id number] 17:20:16 Test Item Value Reference Range Interpretation Comments POC-GLUCOSE METER 269 mg/dL 70-110 H : TESTED A T [facility] 6720 (BEAKER) (test code = [facility], 1538) [address]: Senior Systems Engineer/Techni jani ID = [id number] for OR PHEY, ANNIKA POCT-GLUCOSE [id number] 12:53:25 Test Item Value Reference Range Interpretation Comments POC-GLUCOSE METER 144 mg/dL 70-110 H : TESTED A T [facility] 6720 (BEAKER) (test code = [facility], 1538) [address]: Senior Systems Engineer/Techni jani ID = [id number] for OR PHEY, ANNIKA IRON, TIBC, % SAT. (WITHOUT FERRITIN)2022-04-06 10:19:49 Test Item Value Reference Range Interpretation Comments IRON (BEAKER) (test code = 547) 113.0 ug/dL 40.0-160.0 TOTAL IRON BINDING CAPACITY 179 ug/dL 250-450 L (BEAKER) (test code = 769) IRON % SATURATION (2) (BEAKER) 63 % 20-55 H (test code = 2590) Senior Systems Engineer ID - BSPOCT-GLUCOSE [id number] 08:38:05 Test Item Value Reference Range Interpretation Comments POC-GLUCOSE METER 143 mg/dL 70-110 H : TESTED A T [facility] 6720 (BEAKER) (test code = [facility], 1538) [address]: Senior Systems Engineer/Techni jani ID = [id number] for OR ANNIKA VALDEZ (CELLAVISION MANUAL DIFF)2022-04-06 07:09:43 Test Item Value Reference Range Interpretation Comments NEUTROPHILS - REL 24 % (CELLAVISION)(BEAKER) (test code = 2816) LYMPHOCYTES - REL 52 % (CELLAVISION)(BEAKER) (test code = 2817) MONOCYTES - REL 6 % (CELLAVISION)(BEAKER) (test code = 2818) EOSINOPHILS - REL 19 % (CELLAVISION)(BEAKER) (test code = 2819) NEUTROPHILS - ABS 2.30 K/ul 1.56-6.13 (CELLAVISION)(BEAKER) (test code = 2830) LYMPHOCYTES - ABS 4.99 K/ul 1.18-3.74 H (CELLAVISION)(BEAKER) (test code = 2831) MONOCYTES - ABS 0.58 K/uL 0.24-0.36 H (CELLAVISION)(BEAKER) (test code = 2832) EOSINOPHILS - ABS 1.82 K/uL 0.04-0.36 H (CELLAVISION)(BEAKER) (test code = 2834) TOTAL COUNTED (BEAKER) (test code = 100 1351) WBC MORPHOLOGY (BEAKER) (test code Normal = 487) GIANT PLATELETS (BEAKER) (test code Present = 313) ANISOCYTOSIS (BEAKER) (test code = 1+ few 961) MACROCYTES (BEAKER) (test code = 1+ few 964) ARTIFACT (CELLAVISION)(BEAKER) Present (test code = 3432) PLATELET CONCENTRATION Adequate (CELLAVISION)(BEAKER) (test code = 3438) Senior Systems Engineer ID - [email or web address] [place] comments: Slide comments:CBC W/PLT COUNT & AUTO [id number] 07:09:42 Test Item Value Reference Range Interpretation Comments WHITE BLOOD CELL COUNT (BEAKER) 9.6 K/ L 3.5-10.5 (test code = 775) RED BLOOD CELL COUNT (BEAKER) 1.96 M/ L 3.93-5.22 L (test code = 761) HEMOGLOBIN (BEAKER) (test code = 6.8 GM/DL 11.2-15.7 L 410) HEMATOCRIT (BEAKER) (test code = 21.2 % 34.1-44.9 L 411) MEAN CORPUSCULAR VOLUME (BEAKER) 108.2 fL 79.4-94.8 H (test code = 753) MEAN CORPUSCULAR HEMOGLOBIN 34.7 pg 25.6-32.2 H (BEAKER) (test code = 751) MEAN CORPUSCULAR HEMOGLOBIN CONC 32.1 GM/DL 32.2-35.5 L (BEAKER) (test code = 752) RED CELL DISTRIBUTION WIDTH 16.6 % 11.7-14.4 H (BEAKER) (test code = 412) PLATELET COUNT (BEAKER) (test 279 K/CU MM 150-450 code = 756) MEAN PLATELET VOLUME (BEAKER) 10.5 fL 9.4-12.3 (test code = 754) NUCLEATED RED BLOOD CELLS 0 /100 WBC 0-0 (BEAKER) (test code = 413) BASIC METABOLIC [id number] 07:03:31 Test Item Value Reference Range Interpretation Comments SODIUM (BEAKER) 136 meq/L 136-145 (test code = 381) POTASSIUM (BEAKER) 4.2 meq/L 3.5-5.1 (test code = 379) CHLORIDE (BEAKER) 99 meq/L 98-107 (test code = 382) CO2 (BEAKER) (test 29 meq/L 22-29 code = 355) BLOOD UREA NITROGEN 24 mg/dL 7-21 H (BEAKER) (test code = 354) CREATININE (BEAKER) 4.48 mg/dL 0.57-1.25 H (test code = 358) GLUCOSE RANDOM 166 mg/dL 70-105 H (BEAKER) (test code = 652) CALCIUM (BEAKER) 9.5 mg/dL 8.4-10.2 (test code = 697) EGFR (BEAKER) (test 10 mL/min/1.73 ESTIMA TAMMY GFR IS code = 1092) sq m NOT ACCURATE CREATININE CLEARANCE IN PREDICTING GLOMERULAR FILTRATION RATE . ESTIMATED GFR I S NOT APPLICABLE FOR DIALYSIS PATIEN TS. Senior Systems Engineer ID - [id number] 06:57:13 Test Item Value Reference Range Interpretation Comments PHOSPHORUS (BEAKER) (test code = 3.5 mg/dL 2.3-4.7 604) Senior Systems Engineer ID - [id number] 06:57:12 Test Item Value Reference Range Interpretation Comments MAGNESIUM (CARITO) (test code = 2.1 mg/dL 1.6-2.6 627) Senior Systems Engineer ID - ADMINHEPATITIS B SURFACE [id number] 06:28:07 Test Item Value Reference Range Interpretation Comments HEPATITIS B SURFACE ANTIBODY < mIU/mL <8.0 (CARITO) (test code = 647) Senior Systems Engineer ID - [id number]/[id number] 05:45:17 Test Item Value Reference Range Interpretation Comments PROTIME (CARITO) (test 13.4 seconds 11.9-14.2 code = 759) INR (CARITO) (test 1.04 See_Comment [Automat ed code = 370) message] The sy stem which generated this result transmitted reference range : <=5.90. The reference range was not used to interpret this result as normal/abnormal . PARTIAL THROMBOPLASTIN 30.1 seconds 22.5-36.0 TIME (CARITO) (test code = 760) RECOMMENDED COUMADIN/WARFARIN INR THERAPY RANGESSTANDARD DOSE: 2.0 - 3.0 Includes: PROPHYLAXIS for venous thrombosis, systemic embolization; TREATMENT for venous thrombosis and/or pulmonary embolus.HIGH RISK: Target INR is 2.5-3.5 for patients with mechanical heart valves.POCT-GLUCOSE [id number] 22:56:28 Test Item Value Reference Range Interpretation Comments POC-GLUCOSE METER 119 mg/dL 70-110 H : TESTED A T [facility] 6720 (CARITO) (test code = [place], 1538) [address]: Senior Systems Engineer/Techni jani ID = [id number] for EUNICE SOMMERS SARS coronavirus 2 RNA [Presence] in Respiratory specimen by PHYLLIS with probe [id number] 02:18:18 Test Item Value Reference Range Interpretation Comments SARS coronavirus 2 RNA Not detected Not-Detected [Presence] in Respiratory specimen by PHYLLIS with probe detection (test code = 73403-8) [facility] [id number] 09:57:00 Test Item Value Reference Range Interpretation Comments GLUCOMETER (test code = 163 mg/dL 70-100 H Mete r ID: GMG) [id number] tor: 4323 ARIC LEMONS PBELL GLUCOMETER GLUCOSE- LAB USE [id number] 06:56:00 Test Item Value Reference Range Interpretation Comments GLUCOMETER (test code 148 mg/dL 70-100 H CLEANE D METERMeter ID: = GMG) [id number] tor: 4902 [employer] CULTURE + [id number] 18:43:00 Test Item Value Reference Range Interpretation Comments CULTURE (BEAKER) (test No acid-fast bacilli code = 1095) isolated in 42 days AFB SMEAR (BEAKER) No acid fast bacilli (test code = 994) seen FUNGUS CULTURE + [id number] 13:42:00 Test Item Value Reference Range Interpretation Comments CULTURE (BEAKER) (test No fungus isolated in code = 1095) 28 days FUNGUS SMEAR (BEAKER) No fungi seen (test code = 1406) BODY FLUID CULTURE + GRAM [id number] 06:03:00 Test Item Value Reference Range Interpretation Comments CULTURE (BEAKER) (test No growth code = 1095) GRAM STAIN RESULT No White blood cells (BEAKER) (test code = seen 1123) GRAM STAIN RESULT No organisms seen (BEAKER) (test code = 96201) POCT-GLUCOSE [id number] 12:20:00 Test Item Value Reference Range Interpretation Comments POC-GLUCOSE METER 181 mg/dL 70-110 H TESTED AT [facility] 6720 (BEAKER) (test code = [facility] 1538) [address] POCT-GLUCOSE [id number] 08:56:00 Test Item Value Reference Range Interpretation Comments POC-GLUCOSE METER 119 mg/dL 70-110 H TESTED AT [place] [address] (BEAKER) (test code = [facility] 1538) [address] BASIC METABOLIC [id number] 07:37:00 Test Item Value Reference Range Interpretation Comments SODIUM (BEAKER) 135 meq/L 136-145 L (test code = 381) POTASSIUM (BEAKER) 4.3 meq/L 3.5-5.1 (test code = 379) CHLORIDE (BEAKER) 106 meq/L 98-107 (test code = 382) CO2 (BEAKER) (test 19 meq/L 22-29 L code = 355) BLOOD UREA NITROGEN 49 mg/dL 7-21 H (BEAKER) (test code = 354) CREATININE (BEAKER) 3.42 mg/dL 0.57-1.25 H (test code = 358) GLUCOSE RANDOM 109 mg/dL 70-105 H (BEAKER) (test code = 652) CALCIUM (BEAKER) 9.4 mg/dL 8.4-10.2 (test code = 697) EGFR (BEAKER) (test 14 mL/min/1.73 ESTIMA TAMMY GFR IS code = 1092) sq m NOT ACCURATE CREATININE CLEARANCE IN PREDICTING GLOMERULAR FILTRATION RATE . ESTIMATED GFR I S NOT APPLICABLE FOR DIALYSIS PATIEN TS. [id number] 07:36:00 Test Item Value Reference Range Interpretation Comments MAGNESIUM (BEAKER) (test code = 1.7 mg/dL 1.6-2.6 627) BODY FLUID CELL COUNT WITH [id number] 22:37:00 Test Item Value Reference Range Interpretation Comments APPEARANCE FLUID (BEAKER) (test Bloody Clear A code = 510) COLOR FLUID (BEAKER) (test code Pita Colorless, Straw A = 511) RBC FLUID (BEAKER) (test code = 57204 /cu mm <=1 H 513) ADJUSTED WBC FLUID (BEAKER) 3032 /cu mm <=5 H (test code = 1691) LINING CELLS (BEAKER) (test 121 /cu mm <=1 H code = 1590) NEUTROPHILS FLUID (BEAKER) 32 % (test code = 1656) LYMPHS FLUID (BEAKER) (test 6 % code = 488) MONO/MACROPHAGE FLUID (BEAKER) 60 % (test code = 489) EOSINOPHILS FLUID (BEAKER) 2 % (test code = 491) BASO FLUID (BEAKER) (test code 0 % = 492) CONTAINER BODY FLUID (BEAKER) EDTA Tube (test code = 2873) POCT-GLUCOSE [id number] 21:26:00 Test Item Value Reference Range Interpretation Comments POC-GLUCOSE METER 165 mg/dL 70-110 H TESTED AT [facility] 6720 (BEAKER) (test code = [place] 1538) [address] LACTATE DEHYDROGENASE (LDH), BODY [id number] 20:35:00 Test Item Value Reference Range Interpretation Comments LACTATE DEHYDROGENASE FLUID 234 U/L Light's criteria (BEAKER) (test code = 634) identifies effusions if one or more are pre Absence of reference range indicates that normals have not been defined.Assay performance has not been validated for this type of specimen.PROTEIN, BODY FLUID 2017-09-27 20:35:00 Test Item Value Reference Range Interpretation Comments PROTEIN FLUID (BEAKER) 3.6 g/dL Light's criteria identifies (test code = 579) effusions if one or more are pre Absence of reference range indicates that normals have not been defined.Assay performance has not been validated for this type of specimen.POCT-GLUCOSE METER 2017-09-27 17:21:00 Test Item Value Reference Range Interpretation Comments POC-GLUCOSE METER 134 mg/dL 70-110 H TESTED AT [facility] 6720 (BEJAKE) (test code = [place] 1538) [address] U/S, [id number] 17:19:00Laterality?->RightReason for exam:- >diagnsotic and therapeuticFINAL REPORT Ultrasound guided right thoracentesis [...] After the area is anesthetized, a 4 Greek catheter is advanced into the pleural space. Approximately 1100 cc of serosanguineous fluid is drained, without immediate complications. Fluid is sent for analysis. A purple top tube and a red top tube, each filled with the sampled fluid, are saved in the laboratory department in case future fluid analysis is desired. Post procedure chest x-rayis pending. Patient disposition: Patient is discharged from the ultrasound department after the thoracentesis in good condition. Impression: Successful and uncomplicated ultrasound guided right thoracentesis is performed. Signed: Moises Petersort Verified Date/Time: 09/27/2017 17:19:37 Reading Location: [address] Ultrasound Reading Room RAD, CHEST, 1 VIEW, NON [id number] 16:21:00Reason for exam:->Post Thoracentesis U/S room 3 U/S Room 3 Should this be performed at the bedside?->YesFINAL REPORT AP chest HISTORY: Thoracentesis COMPARISON: 09/27/2017 IMPRESSION:Intact skeleton. Cardiac silhouette mildly enlarged. Mild interstitial prominence, similar to previous.Right effusion appears decreased. No pneumothorax. Signed: Tari Leaeport Verified Date/Time: 09/27/2017 16:21:56 [facility], CHEST, 1 VIEW, NON DEPT 2017-09-27 13:43:00Reason for exam:->overloadShould this be performed at the bedside?->YesFINAL REPORT Chest one view compared to September 25 Discussion: Cardiac prominence, pulmonary congestion, and small right base effusion are unchanged. No pneumothorax. Signed: Austyn Apodaca Verified Date/Time: 09/27/2017 13:43:29 Reading Location: [facility] C013W Consult Reading Room POCT-GLUCOSE [id number] 12:32:00 Test Item Value Reference Range Interpretation Comments POC-GLUCOSE METER 181 mg/dL 70-110 H TESTED AT [facility] 6720 ([facility]) (test code = [place]ERR[place] [facility] 1538) [address] VITAMIN B12 AND [id number] 08:57:00 Test Item Value Reference Range Interpretation Comments VITAMIN B12 ([employer]) (test code = > pg/mL 213-816 H 774) FOLATE ([employer]) (test code = 362) 13.3 ng/mL >=7.0 SPIN/CONCENTRATION [id number] 08:48:00 Test Item Value Reference Range Interpretation Comments [facility]EN[facility] CHARGED [facility] (test Done code = 2657) POCT-GLUCOSE [id number] 07:58:00 Test Item Value Reference Range Interpretation Comments POC-GLUCOSE METER 155 mg/dL 70-110 H TESTED AT [facility] 6720 (BEAKER) (test code = [place] 1538) [address] BASIC METABOLIC [id number] 06:35:00 Test Item Value Reference Range Interpretation Comments SODIUM (BEAKER) 134 meq/L 136-145 L (test code = 381) POTASSIUM (BEAKER) 4.5 meq/L 3.5-5.1 (test code = 379) CHLORIDE (BEAKER) 107 meq/L 98-107 (test code = 382) CO2 (BEAKER) (test 18 meq/L 22-29 L code = 355) BLOOD UREA NITROGEN 45 mg/dL 7-21 H (BEAKER) (test code = 354) CREATININE (BEAKER) 3.29 mg/dL 0.57-1.25 H (test code = 358) GLUCOSE RANDOM 149 mg/dL 70-105 H (BEAKER) (test code = 652) CALCIUM (BEAKER) 9.4 mg/dL 8.4-10.2 (test code = 697) EGFR (BEAKER) (test 14 mL/min/1.73 ESTIMA TAMMY GFR IS code = 1092) sq m NOT ACCURATE CREATININE CLEARANCE IN PREDICTING GLOMERULAR FILTRATION RATE . ESTIMATED GFR I S NOT APPLICABLE FOR DIALYSIS PATIEN TS. [id number] 06:34:00 Test Item Value Reference Range Interpretation Comments MAGNESIUM (BEAKER) (test code = 1.6 mg/dL 1.6-2.6 627) POCT-GLUCOSE [id number] 21:34:00 Test Item Value Reference Range Interpretation Comments POC-GLUCOSE METER 172 mg/dL 70-110 H TESTED AT [facility] 6720 (BEAKER) (test code = [facility] 1538) [address] POCT-GLUCOSE [id number] 18:44:00 Test Item Value Reference Range Interpretation Comments POC-GLUCOSE METER 179 mg/dL 70-110 H TESTED AT [facility] 6720 (BEAKER) (test code = [facility] 1538) [address] POCT-GLUCOSE [id number] 14:01:00 Test Item Value Reference Range Interpretation Comments POC-GLUCOSE METER 176 mg/dL 70-110 H TESTED AT [place] [id number] (BEAKER) (test code = [facility] 1538) [address] LACTATE DEHYDROGENASE (LDH)2017-09-26 12:06:00 Test Item Value Reference Range Interpretation Comments LACTATE DEHYDROGENASE (BEAKER) (test 309 U/L 125-220 H code = 635) PROTEIN, [id number] 12:04:00 Test Item Value Reference Range Interpretation Comments TOTAL PROTEIN (BEAKER) (test code = 6.1 gm/dL 6.0-8.3 770) [id number] 11:43:00 Test Item Value Reference Range Interpretation Comments PROTIME (BEAKER) (test code = 14.5 seconds 11.7-14.7 759) INR (BEAKER) (test code = 370) 1.1 <=5.9 PARTIAL THROMBOPLASTIN TIME 39.2 seconds 22.5-36.0 H (BEAKER) (test code = 760) RECOMMENDED COUMADIN/WARFARIN INR THERAPY RANGESSTANDARD DOSE: 2.0 - 3.0 Includes: PROPHYLAXIS for venous thrombosis, systemic embolization; TREATMENT for venous thrombosis and/or pulmonary embolus.HIGH RISK: Target INR is 2.5-3.5 for patients with mechanical heart valves.PLATELET [id number] 11:31:00 Test Item Value Reference Range Interpretation Comments PLATELET COUNT (BEAKER) (test 501 K/CU MM 150-450 H code = 756) POCT-GLUCOSE [id number] 08:42:00 Test Item Value Reference Range Interpretation Comments POC-GLUCOSE METER 146 mg/dL 70-110 H TESTED AT [facility] 6720 (BEAKER) (test code = BERRY Cruz [facility] 1538) [address] BASIC METABOLIC [id number] 05:39:00 Test Item Value Reference Range Interpretation Comments SODIUM (BEAKER) 137 meq/L 136-145 (test code = 381) POTASSIUM (BEAKER) 4.7 meq/L 3.5-5.1 (test code = 379) CHLORIDE (BEAKER) 109 meq/L 98-107 H (test code = 382) CO2 (BEAKER) (test 20 meq/L 22-29 L code = 355) BLOOD UREA NITROGEN 43 mg/dL 7-21 H (BEAKER) (test code = 354) CREATININE (BEAKER) 3.09 mg/dL 0.57-1.25 H (test code = 358) GLUCOSE RANDOM 160 mg/dL 70-105 H ([facility]) (test code = 652) CALCIUM (ITALOAKER) 9.6 mg/dL 8.4-10.2 (test code = 697) EGFR (CARITO) (test 15 mL/min/1.73 ESTIMA TAMMY GFR IS code = 1092) sq m NOT ACCURATE CREATININE CLEARANCE IN PREDICTING GLOMERULAR FILTRATION RATE . ESTIMATED GFR I S NOT APPLICABLE FOR DIALYSIS PATIEN TS. [id number] 05:38:00 Test Item Value Reference Range Interpretation Comments MAGNESIUM (CARITO) (test code = 1.9 mg/dL 1.6-2.6 627) POCT-GLUCOSE [id number] 21:13:00 Test Item Value Reference Range Interpretation Comments POC-GLUCOSE METER 241 mg/dL 70-110 H TESTED AT [place] [address] ([facility]) (test code = [facility] 1538) [address] RAD, CHEST, 2 [id number] 19:38:00Reason for exam:->coughFINAL REPORT Examination: Two view Chest X-ray. CLINICAL HISTORY: Cough COMPARISON: 09/21/2017 The cardiac silhouette is prominent in size. The patient has been extubated. There rosana moderate right pleural effusion. Central pulmonary vascular congestion is present. Vague infrahilar opacity in the right lung may reflect a combination of atelectasis, edema and effusion but pneumonitis should be excluded clinically. There is no pneumothorax or acute bony abnormality. Signed: Leelee Johnson MDReport Verified Date/Time: 09/25/2017 19:38:01 Reading Location: [address] Reading Room POCT-GLUCOSE [id number] 17:23:00 Test Item Value Reference Range Interpretation Comments POC-GLUCOSE METER 190 mg/dL 70-110 H TESTED AT [place] [address] ([facility]) (test code = [facility] 1538) [id number] POCT-GLUCOSE [id number] 12:22:00 Test Item Value Reference Range Interpretation Comments POC-GLUCOSE METER 239 mg/dL 70-110 H TESTED AT [place] [address] ([facility]) (test code = [facility] 1538) [id number] BLOOD [id number] 10:00:00 Test Item Value Reference Range Interpretation Comments CULTURE (BEAKER) (test No growth in 5 days code = 1095) BLOOD [id number] 10:00:00 Test Item Value Reference Range Interpretation Comments CULTURE (BEAKER) (test No growth in 5 days code = 1095) POCT-GLUCOSE [id number] 08:02:00 Test Item Value Reference Range Interpretation Comments POC-GLUCOSE METER 196 mg/dL 70-110 H TESTED AT [facility] 6720 (BEAKER) (test code = [facility] 1538) [address] [id number] 07:15:00 Test Item Value Reference Range Interpretation Comments MAGNESIUM (BEAKER) (test code = 1.8 mg/dL 1.6-2.6 627) BASIC METABOLIC [id number] 07:15:00 Test Item Value Reference Range Interpretation Comments SODIUM (BEAKER) 136 meq/L 136-145 (test code = 381) POTASSIUM (BEAKER) 4.4 meq/L 3.5-5.1 (test code = 379) CHLORIDE (BEAKER) 109 meq/L 98-107 H (test code = 382) CO2 (BEAKER) (test 19 meq/L 22-29 L code = 355) BLOOD UREA NITROGEN 44 mg/dL 7-21 H (BEAKER) (test code = 354) CREATININE (BEAKER) 3.16 mg/dL 0.57-1.25 H (test code = 358) GLUCOSE RANDOM 197 mg/dL 70-105 H (BEAKER) (test code = 652) CALCIUM (BEAKER) 9.3 mg/dL 8.4-10.2 (test code = 697) EGFR (BEAKER) (test 15 mL/min/1.73 ESTIMA TAMMY GFR IS code = 1092) sq m NOT ACCURATE CREATININE CLEARANCE IN PREDICTING GLOMERULAR FILTRATION RATE . ESTIMATED GFR I S NOT APPLICABLE FOR DIALYSIS PATIEN TS. POCT-GLUCOSE [id number] 22:03:00 Test Item Value Reference Range Interpretation Comments POC-GLUCOSE METER 286 mg/dL 70-110 H TESTED AT [facility] 6720 (BEAKER) (test code = [facility] 1538) [id number] POCT-GLUCOSE [id number] 21:21:00 Test Item Value Reference Range Interpretation Comments POC-GLUCOSE METER 294 mg/dL 70-110 H TESTED AT [facility] 6720 ([facility]) (test code = [place] 1538) [id number] POCT-GLUCOSE [id number] 17:10:00 Test Item Value Reference Range Interpretation Comments POC-GLUCOSE METER 212 mg/dL 70-110 H TESTED AT [facility] 6720 ([facility]) (test code = [place] 1538) [id number] PROTEIN, RANDOM [id number] 17:00:00 Test Item Value Reference Range Interpretation Comments PROTEIN, URINE ([facility]) (test code 154 mg/dL 0-14 H = 1569) CREATININE, RANDOM [id number] 16:59:00 Test Item Value Reference Range Interpretation Comments CREATININE URINE ([facility]) (test 88.8 mg/dL code = 375) Reference Range: No NormalsPET, CARDIAC PERFUSION MULTIPLE STUDIES, REST AND [id number] 16:36:00Reason for exam:->chest pain, hypokinesis on echo FINAL REPORT PROCEDURE: Rest/Stress MYOCARDIAL PERFUSION PET with regadenoson\\XA9\\ CPT CODE: 92958 INDICATION: Chest pain, hypokinesis on echo HISTORY: Cardiac risk factors: Diabetes mellitus, hypertension, obesity, lipid abnormality, COPD, asthma. Other cardiovascular history: Noreported CAD.. Recent cardiac symptoms: Chest pain. Current cardiovascular-related medications: Aspirin, Coreg, amlodipine, Lasix, Zetia, plaquinil PROTOCOL: Limited low-dose CT imaging was performed for attenuation correction. 37.7 mCi of Rb-82 chloride was injected iv at rest, and gated PET (positron emission tomography) images were obtained. Subsequently, 37.4 mCi of Rb-82 chloride was injected ivat expected peak pharmacologic effect, and gated PET images were obtained. PRELIMINARY STRESS TEST DATA FROM NONINVASIVE CARDIOLOGY: Pharmacologic stress was by 10-second iv infusion of 0.4 mg of regadenoson. Radiotracer was injected 30 seconds after start of stress. Heart rate was 110 beats/min at rest and 118 beats/min (74% of MPHR) at tracer injection. BP was 150/72 mmHg at rest and 171/74 mmHg attracer injection. Stress was stopped for predetermined endpoint. [...] show normal LV wall motion. LVEF at restis 59%. LVEF at stress is 61%. The CT scan shows a large right pleural effusion and in attenuation artifact in the right upper abdomen with the right kidney would be expected. IMPRESSION: 1. Suspiciousstudy. 2. Appropriate pharmacologic stress. 3. Suspicious myocardial perfusion. The stress images are normal while there is decreased anteroseptal intensity in the resting images. 4. Normal resting LV function. Normal stress LV function. 5. Extracardiac tracer distribution is normal. 6. No previous [facility] study for comparison. NONINVASIVE RISK STRATIFICATION: The above findings are considered low riskbased on the following criteria: 1)Normal or small myocardial perfusion defect at rest or with stress(JACC. 2012;59(9):857-46.) Signed: Nuris Braswell [facility] Verified Date/Time: 09/24/2017 16:36:36 POCT-GLUCOSE [id number] 10:53:00 Test Item Value Reference Range Interpretation Comments POC-GLUCOSE METER 158 mg/dL 70-110 H TESTED AT [place] [address] ([facility]) (test code = [place] [facility] 1538) [id number] POCT-GLUCOSE [id number] 07:31:00 Test Item Value Reference Range Interpretation Comments POC-GLUCOSE METER 142 mg/dL 70-110 H TESTED AT [place] [address] ([facility]) (test code = [facility] Anthony [facility] 1538) [address] BASIC METABOLIC [id number] 05:57:00 Test Item Value Reference Range Interpretation Comments SODIUM (BEAKER) 138 meq/L 136-145 (test code = 381) POTASSIUM (BEAKER) 4.3 meq/L 3.5-5.1 (test code = 379) CHLORIDE (AKER) 110 meq/L 98-107 H (test code = 382) CO2 (BEAKER) (test 19 meq/L 22-29 L code = 355) BLOOD UREA NITROGEN 42 mg/dL 7-21 H (BEAKER) (test code = 354) CREATININE (BEAKER) 3.58 mg/dL 0.57-1.25 H (test code = 358) GLUCOSE RANDOM 139 mg/dL 70-105 H (BEAKER) (test code = 652) CALCIUM (BEAKER) 9.4 mg/dL 8.4-10.2 (test code = 697) EGFR (BEAKER) (test 13 mL/min/1.73 ESTIMA TAMMY GFR IS code = 1092) sq m NOT ACCURATE CREATININE CLEARANCE IN PREDICTING GLOMERULAR FILTRATION RATE . ESTIMATED GFR I S NOT APPLICABLE FOR DIALYSIS PATIEN TS. [id number] 05:13:00 Test Item Value Reference Range Interpretation Comments MAGNESIUM (BEAKER) (test code = 1.9 mg/dL 1.6-2.6 627) VANCOMYCIN LEVEL, [id number] 05:10:00 Test Item Value Reference Range Interpretation Comments VANCOMYCIN RANDOM (BEAKER) (test 16.6 ug/mL code = 523) Reference Range: No NormalsU/S, RENAL, [id number] 22:13:00Reason for exam:->Elevated creatinineFINAL REPORT U/S, RENAL, COMPLETE CLINICAL INDICATION: "Elevated creatinine" COMPARISON: None TECHNIQUE: The kidneys and urinary bladder were evaluated using real time can scale and color Doppler sonography. FINDINGS:Right kidney: Thin cortex. No hydronephrosis or mass. Left kidney: Thin cortex. No hydronephrosis. Scattered simple renal cysts. Renal Vasculature: Doppler interrogation reveals preserved vascular flow in the main renal arteries and veins bilaterally. The visualized portions of the abdominal aorta and IVC are unremarkable. Urinary bladder: Unremarkable. IMPRESSION: No hydronephrosis.Thinned renal cortices. Signed: Goldie Benson MDReport Verified Date/Time: 09/23/2017 22:13:52 Reading Location: [facility] [id number] Ortho Consult Reading Room POCT-GLUCOSE [id number] 21:25:00 Test Item Value Reference Range Interpretation Comments POC-GLUCOSE METER 220 mg/dL 70-110 H TESTED AT [facility] 6720 (BEAKER) (test code = [place] 1538) [id number] POCT-GLUCOSE [id number] 17:02:00 Test Item Value Reference Range Interpretation Comments POC-GLUCOSE METER 223 mg/dL 70-110 H [facility] (BEAKER) (test code = [place] 1538) [address] BRONCHIAL CULTURE + GRAM [id number] 15:04:00 Test Item Value Reference Range Interpretation Comments CULTURE (BEAKER) (test code No growth = 1095) GRAM STAIN RESULT (BEAKER) <1+ WBCs (test code = 1123) GRAM STAIN RESULT (BEAKER) No organisms seen (test code = 95350) URINALYSIS W/ REFLEX URINE [id number] 13:20:00 Test Item Value Reference Range Interpretation Comments COLOR (BEAKER) (test code = 470) Yellow CLARITY (BEAKER) (test code = 469) Hazy SPECIFIC GRAVITY UA (BEAKER) (test 1.010 1.001-1.035 code = 468) PH UA (BEAKER) (test code = 467) 5.5 5.0-8.0 PROTEIN UA (BEAKER) (test code = 100 mg/dL Negative A 464) GLUCOSE UA (BEAKER) (test code = 30 mg/dL Negative A 365) KETONES UA (BEAKER) (test code = Negative Negative 371) BILIRUBIN UA (BEAKER) (test code = Negative Negative 462) BLOOD UA (BEAKER) (test code = Negative Negative 461) NITRITE UA (BEAKER) (test code = Negative Negative 465) LEUKOCYTE ESTERASE UA (BEAKER) Negative Negative (test code = 466) UROBILINOGEN UA (BEAKER) (test 0.2 mg/dL 0.2-1.0 code = 463) RBC UA (BEAKER) (test code = 519) 0 /HPF WBC UA (BEAKER) (test code = 520) 1 /HPF BACTERIA (BEAKER) (test code = Occasional 517) MUCUS (BEAKER) (test code = 1574) Rare SQUAMOUS EPITHELIAL (BEAKER) (test 11 /HPF code = 516) YEAST (BEAKER) (test code = 1585) Rare SOURCE(BEAKER) (test code = 2795) CREATININE, RANDOM [id number] 13:13:00 Test Item Value Reference Range Interpretation Comments CREATININE URINE (BEAKER) (test 101.2 mg/dL code = 375) Reference Range: No NormalsSODIUM, RANDOM [id number] 13:13:00 Test Item Value Reference Range Interpretation Comments SODIUM URINE (BEAKER) (test code = 31 meq/L 243) Reference Range: No NormalsPOCT-GLUCOSE [id number] 11:37:00 Test Item Value Reference Range Interpretation Comments POC-GLUCOSE METER 342 mg/dL 70-110 H TESTED AT [facility] 6720 (BEAKER) (test code = [place] 1538) [id number] VANCOMYCIN LEVEL, [id number] 08:10:00 Test Item Value Reference Range Interpretation Comments VANCOMYCIN RANDOM (BEAKER) (test 20.6 ug/mL code = 523) Reference Range: No NormalsBASIC METABOLIC [id number] 08:05:00 Test Item Value Reference Range Interpretation Comments SODIUM (BEAKER) 140 meq/L 136-145 (test code = 381) POTASSIUM (BEAKER) 4.2 meq/L 3.5-5.1 (test code = 379) CHLORIDE (BEAKER) 109 meq/L 98-107 H (test code = 382) CO2 (BEAKER) (test 18 meq/L 22-29 L code = 355) BLOOD UREA NITROGEN 51 mg/dL 7-21 H (BEAKER) (test code = 354) CREATININE (BEAKER) 3.45 mg/dL 0.57-1.25 H (test code = 358) GLUCOSE RANDOM 159 mg/dL 70-105 H (BEAKER) (test code = 652) CALCIUM (BEAKER) 9.4 mg/dL 8.4-10.2 (test code = 697) EGFR (BEAKER) (test 14 mL/min/1.73 ESTIMA TAMMY GFR IS code = 1092) sq m NOT ACCURATE CREATININE CLEARANCE IN PREDICTING GLOMERULAR FILTRATION RATE . ESTIMATED GFR I S NOT APPLICABLE FOR DIALYSIS PATIEN TS. CBC W/PLT COUNT & AUTO [id number] 07:43:00 Test Item Value Reference Range Interpretation Comments WHITE BLOOD CELL COUNT (BEAKER) 12.7 K/ L 3.5-10.5 H (test code = 775) RED BLOOD CELL COUNT (BEAKER) 2.61 M/ L 3.93-5.22 L (test code = 761) HEMOGLOBIN (BEAKER) (test code = 7.9 GM/DL 11.2-15.7 L 410) HEMATOCRIT (BEAKER) (test code = 24.7 % 34.1-44.9 L 411) MEAN CORPUSCULAR VOLUME (BEAKER) 94.6 fL 79.4-94.8 (test code = 753) MEAN CORPUSCULAR HEMOGLOBIN 30.3 pg 25.6-32.2 (BEAKER) (test code = 751) MEAN CORPUSCULAR HEMOGLOBIN CONC 32.0 GM/DL 32.2-35.5 L (BEAKER) (test code = 752) RED CELL DISTRIBUTION WIDTH 14.2 % 11.7-14.4 (BEAKER) (test code = 412) PLATELET COUNT (BEAKER) (test 466 K/CU MM 150-450 H code = 756) MEAN PLATELET VOLUME (BEAKER) 10.6 fL 9.4-12.3 (test code = 754) NUCLEATED RED BLOOD CELLS 0 /100 WBC 0-0 (BEAKER) (test code = 413) NEUTROPHILS RELATIVE PERCENT 64 % (BEAKER) (test code = 429) LYMPHOCYTES RELATIVE PERCENT 17 % (BEAKER) (test code = 430) MONOCYTES RELATIVE PERCENT 11 % (BEAKER) (test code = 431) EOSINOPHILS RELATIVE PERCENT 7 % (BEAKER) (test code = 432) BASOPHILS RELATIVE PERCENT 0 % (BEAKER) (test code = 437) NEUTROPHILS ABSOLUTE COUNT 8.16 K/ L 1.56-6.13 H (BEAKER) (test code = 670) LYMPHOCYTES ABSOLUTE COUNT 2.14 K/ L 1.18-3.74 (BEAKER) (test code = 414) MONOCYTES ABSOLUTE COUNT (BEAKER) 1.35 K/ L 0.24-0.36 H (test code = 415) EOSINOPHILS ABSOLUTE COUNT 0.83 K/ L 0.04-0.36 H (BEAKER) (test code = 416) BASOPHILS ABSOLUTE COUNT (BEAKER) 0.04 K/ L 0.01-0.08 (test code = 417) IMMATURE GRANULOCYTES-RELATIVE 2 % 0-1 H PERCENT (BEAKER) (test code = 2801) [id number] 07:35:00 Test Item Value Reference Range Interpretation Comments [facility]NESIUM [facility] (test code = 1.9 mg/dL 1.6-2.6 627) POCT-GLUCOSE [id number] 07:33:00 Test Item Value Reference Range Interpretation Comments POC-GLUCOSE METER 196 mg/dL 70-110 H TESTED AT [place] [address] ([facility]) (test code = [place] 1538) [address] POCT-GLUCOSE [id number] 21:15:00 Test Item Value Reference Range Interpretation Comments POC-GLUCOSE METER 243 mg/dL 70-110 H TESTED AT [place] [address] ([facility]) (test code = [place]ERR[place] Cruz [place] 1538) [address] POCT-GLUCOSE [id number] 17:44:00 Test Item Value Reference Range Interpretation Comments POC-GLUCOSE METER 218 mg/dL 70-110 H TESTED AT [place] [address] ([facility]) (test code = [place]ERRY Cruz [facility] 1538) [address] CMV PCR, [id number] 17:31:00 Test Item Value Reference Range Interpretation Comments CMV VIRAL LOAD - Negative or below the NEGATIVE ([facility]) (test linear range of the code = 2558) assay (<375 copies/mL) Cytomegalovirus (CMV) infection can cause significant disease in immunosuppressed patients. However,it is common for CMV to manifest as a limited infection which is of no clinical significance in immunosuppressed patients or in healthy individuals.Viral load measurements are helpful to identify clinical CMV infection and to guide the pre-emptive management of antiviral therapy. For treatment of CMV infection due to reactivation in transplant recipients, a threshold between 4,000 and 5,000 copies/mLis suggested. For treatment of primary CMV infection, [...] and its performance characteristics determined by the [facility] Pathol ogy Department, Section of Molecular Pathology. It has not been cleared or approved by the U.S. Foodand Drug Administration (FDA), since FDA approval is not required for clinical use of the test. Validation was done as required by The Clinical Laboratory Improvement Amendments of 1988.POCT-GLUCOSE METER 2017-09-22 12:39:00 Test Item Value Reference Range Interpretation Comments POC-GLUCOSE METER 210 mg/dL 70-110 H TESTED AT [facility] 67 ([facility]) (test code = BERRY Cruz [place] 1538) [address] POCT-GLUCOSE [id number] 07:41:00 Test Item Value Reference Range Interpretation Comments POC-GLUCOSE METER 151 mg/dL 70-110 H TESTED AT [facility] 67 ([facility]) (test code = BERRY Cruz [facility] 1538) [address] BASIC METABOLIC [id number] 05:54:00 Test Item Value Reference Range Interpretation Comments SODIUM (BEAKER) 140 meq/L 136-145 (test code = 381) POTASSIUM (BEAKER) 4.4 meq/L 3.5-5.1 (test code = 379) CHLORIDE (BEAKER) 109 meq/L 98-107 H (test code = 382) CO2 (BEAKER) (test 20 meq/L 22-29 L code = 355) BLOOD UREA NITROGEN 49 mg/dL 7-21 H (BEAKER) (test code = 354) CREATININE (BEAKER) 3.42 mg/dL 0.57-1.25 H (test code = 358) GLUCOSE RANDOM 140 mg/dL 70-105 H (BEAKER) (test code = 652) CALCIUM (BEAKER) 9.4 mg/dL 8.4-10.2 (test code = 697) EGFR (BEAKER) (test 14 mL/min/1.73 ESTIMA TAMMY GFR IS code = 1092) sq m NOT ACCURATE CREATININE CLEARANCE IN PREDICTING GLOMERULAR FILTRATION RATE . ESTIMATED GFR I S NOT APPLICABLE FOR DIALYSIS PATIEN TS. VANCOMYCIN LEVEL, [id number] 05:54:00 Test Item Value Reference Range Interpretation Comments VANCOMYCIN RANDOM (BEAKER) (test 30.7 ug/mL code = 523) Reference Range: No [id number] 05:47:00 Test Item Value Reference Range Interpretation Comments MAGNESIUM (BEAKER) (test code = 1.8 mg/dL 1.6-2.6 627) CBC W/PLT COUNT & AUTO [id number] 05:15:00 Test Item Value Reference Range Interpretation Comments WHITE BLOOD CELL COUNT (BEAKER) 12.2 K/ L 3.5-10.5 H (test code = 775) RED BLOOD CELL COUNT (BEAKER) 2.44 M/ L 3.93-5.22 L (test code = 761) HEMOGLOBIN (BEAKER) (test code = 7.7 GM/DL 11.2-15.7 L 410) HEMATOCRIT (BEAKER) (test code = 23.2 % 34.1-44.9 L 411) MEAN CORPUSCULAR VOLUME (BEAKER) 95.1 fL 79.4-94.8 H (test code = 753) MEAN CORPUSCULAR HEMOGLOBIN 31.6 pg 25.6-32.2 (BEAKER) (test code = 751) MEAN CORPUSCULAR HEMOGLOBIN CONC 33.2 GM/DL 32.2-35.5 (BEAKER) (test code = 752) RED CELL DISTRIBUTION WIDTH 14.1 % 11.7-14.4 (BEAKER) (test code = 412) PLATELET COUNT (BEAKER) (test 396 K/CU MM 150-450 code = 756) MEAN PLATELET VOLUME (BEAKER) 9.9 fL 9.4-12.3 (test code = 754) NUCLEATED RED BLOOD CELLS 0 /100 WBC 0-0 (BEAKER) (test code = 413) NEUTROPHILS RELATIVE PERCENT 63 % (BEAKER) (test code = 429) LYMPHOCYTES RELATIVE PERCENT 16 % (BEAKER) (test code = 430) MONOCYTES RELATIVE PERCENT 11 % (BEAKER) (test code = 431) EOSINOPHILS RELATIVE PERCENT 7 % (BEAKER) (test code = 432) BASOPHILS RELATIVE PERCENT 0 % (BEAKER) (test code = 437) NEUTROPHILS ABSOLUTE COUNT 7.70 K/ L 1.56-6.13 H (BEAKER) (test code = 670) LYMPHOCYTES ABSOLUTE COUNT 1.99 K/ L 1.18-3.74 (BEAKER) (test code = 414) MONOCYTES ABSOLUTE COUNT (BEAKER) 1.34 K/ L 0.24-0.36 H (test code = 415) EOSINOPHILS ABSOLUTE COUNT 0.80 K/ L 0.04-0.36 H (BEAKER) (test code = 416) BASOPHILS ABSOLUTE COUNT (BEAKER) 0.05 K/ L 0.01-0.08 (test code = 417) IMMATURE GRANULOCYTES-RELATIVE 3 % 0-1 H PERCENT (BEAKER) (test code = 2801) POCT-GLUCOSE [id number] 21:10:00 Test Item Value Reference Range Interpretation Comments POC-GLUCOSE METER 209 mg/dL 70-110 H TESTED AT [place] [address] ([facility]) ([facility] = [facility] 1538) [id number] POCT-GLUCOSE [id number] 16:57:00 Test Item Value Reference Range Interpretation Comments POC-GLUCOSE METER 90 mg/dL 70-110 TESTED AT [place] [address] ([facility]) (test code = [facility] Anthony [facility] [address]38) POCT-GLUCOSE [id number] 12:39:00 Test Item Value Reference Range Interpretation Comments POC-GLUCOSE METER 63 mg/dL 70-110 L TESTED AT [place] [address] ([facility]) (test code = [facility] [address] 1538) BLOOD GAS, [id number] 11:19:00 Test Item Value Reference Range Interpretation Comments PH ARTERIAL (BEAKER) (test code = 7.43 7.35-7.45 383) PCO2 ARTERIAL (BEAKER) (test code 32 mmHg 35-45 L = 384) PO2 ARTERIAL (BEAKER) (test code 226 mmHg 80-90 H = 385) O2 SATURATION ARTERIAL (BEAKER) 99.5 % 96.0-97.0 H (test code = 386) HCO3 ARTERIAL (BEAKER) (test code 21 mmol/L 21-29 = 388) BASE EXCESS ARTERIAL (BEAKER) -3.3 mmol/L -2.0-3.0 L (test code = 387) PATIENT TEMPERATURE (BEAKER) 36.9 C (test code = 1818) FIO2 (BEAKER) (test code = 1819) 60.0 % RAD, CHEST, 1 VIEW, NON [id number] 09:41:00Reason for exam:- >intubationShould this be performed at the bedside?->YesFINAL REPORT [...] Location: [facility] Radiology Reading Room POCT-GLUCOSE [id number] 08:45:00 Test Item Value Reference Range Interpretation Comments POC-GLUCOSE METER 72 mg/dL 70-110 TESTED AT [facility] 6720 (BEAKER) (test code = [place] [address] 1538) [id number] 06:31:00 Test Item Value Reference Range Interpretation Comments MAGNESIUM (BEAKER) (test code = 2.0 mg/dL 1.6-2.6 627) BASIC METABOLIC [id number] 06:31:00 Test Item Value Reference Range Interpretation Comments SODIUM (BEAKER) 139 meq/L 136-145 (test code = 381) POTASSIUM (BEAKER) 4.6 meq/L 3.5-5.1 (test code = 379) CHLORIDE (BEAKER) 109 meq/L 98-107 H (test code = 382) CO2 (BEAKER) (test 19 meq/L 22-29 L code = 355) BLOOD UREA NITROGEN 44 mg/dL 7-21 H (BEAKER) (test code = 354) CREATININE (BEAKER) 3.07 mg/dL 0.57-1.25 H (test code = 358) GLUCOSE RANDOM 83 mg/dL 70-105 (BEAKER) (test code = 652) CALCIUM (BEAKER) 9.5 mg/dL 8.4-10.2 (test code = 697) EGFR (BEAKER) (test 15 mL/min/1.73 ESTIMA TAMMY GFR IS code = 1092) sq m NOT ACCURATE CREATININE CLEARANCE IN PREDICTING GLOMERULAR FILTRATION RATE . ESTIMATED GFR I S NOT APPLICABLE FOR DIALYSIS PATIEN TS. CBC W/PLT COUNT & AUTO [id number] 05:56:00 Test Item Value Reference Range Interpretation Comments WHITE BLOOD CELL COUNT (BEAKER) 12.8 K/ L 3.5-10.5 H (test code = 775) RED BLOOD CELL COUNT (BEAKER) 2.67 M/ L 3.93-5.22 L (test code = 761) HEMOGLOBIN (BEAKER) (test code = 8.3 GM/DL 11.2-15.7 L 410) HEMATOCRIT (BEAKER) (test code = 25.4 % 34.1-44.9 L 411) MEAN CORPUSCULAR VOLUME (BEAKER) 95.1 fL 79.4-94.8 H (test code = 753) MEAN CORPUSCULAR HEMOGLOBIN 31.1 pg 25.6-32.2 (BEAKER) (test code = 751) MEAN CORPUSCULAR HEMOGLOBIN CONC 32.7 GM/DL 32.2-35.5 (BEAKER) (test code = 752) RED CELL DISTRIBUTION WIDTH 14.3 % 11.7-14.4 (BEAKER) (test code = 412) PLATELET COUNT (BEAKER) (test 394 K/CU MM 150-450 code = 756) MEAN PLATELET VOLUME (BEAKER) 10.3 fL 9.4-12.3 (test code = 754) NUCLEATED RED BLOOD CELLS 0 /100 WBC 0-0 (BEAKER) (test code = 413) NEUTROPHILS RELATIVE PERCENT 63 % (BEAKER) (test code = 429) LYMPHOCYTES RELATIVE PERCENT 16 % (BEAKER) (test code = 430) MONOCYTES RELATIVE PERCENT 11 % (BEAKER) (test code = 431) EOSINOPHILS RELATIVE PERCENT 6 % (BEAKER) (test code = 432) BASOPHILS RELATIVE PERCENT 0 % (BEAKER) (test code = 437) NEUTROPHILS ABSOLUTE COUNT 8.06 K/ L 1.56-6.13 H (BEAKER) (test code = 670) LYMPHOCYTES ABSOLUTE COUNT 2.00 K/ L 1.18-3.74 (BEAKER) (test code = 414) MONOCYTES ABSOLUTE COUNT (BEAKER) 1.43 K/ L 0.24-0.36 H (test code = 415) EOSINOPHILS ABSOLUTE COUNT 0.80 K/ L 0.04-0.36 H (BEAKER) (test code = 416) BASOPHILS ABSOLUTE COUNT (BEAKER) 0.05 K/ L 0.01-0.08 (test code = 417) IMMATURE GRANULOCYTES-RELATIVE 4 % 0-1 H PERCENT (BEAKER) (test code = 2801) RAD, CHEST, 1 VIEW, NON [id number] 03:49:00Reason for exam:->PNAShould this be performed at the bedside?->YesFINAL REPORT History: Pneumonia. Comparison: 09/19/2017 Findings: A single viewof the chest is submitted. The examination is limited by low lung volumes. The cardiac silhouette isprominent in size but magnified by low lung volumes and portable technique.. There is central pulmonary vascular congestion. The right hemidiaphragm remains elevated. Worsening opacity throughout the right lung and in the left lower lung may reflect some combination of atelectasis, edema and effusion.Pneumonitis should be excluded clinically. Follow-up imaging after completion of a course of treatment is recommended to exclude an underlying lesion. There is no pneumothorax or acute bony abnormality. Signed: Leelee Johnsonort Verified Date/Time: 09/21/2017 03:49:47 Reading Location: [address] Reading Room POCT-GLUCOSE [id number] 22:14:00 Test Item Value Reference Range Interpretation Comments POC-GLUCOSE METER 173 mg/dL 70-110 H TESTED AT [place] [address] ([facility]) (test code = [place] 1538) [id number] LEGIONELLA ANTIGEN, [id number] 19:27:00 Test Item Value Reference Range Interpretation Comments L. PNEUMOPHILA Negative - see Negative fo r L. SEROGP 1 UR AG comment pneumophila ([facility]) (test code serogrou p 1 antigen, = 1156) suggesting no r ecent or current infe ction with this serog roup. Legionellosis c annot be ruled out si nce other serogroup s and species may cau se disease. POCT-GLUCOSE [id number] 18:01:00 Test Item Value Reference Range Interpretation Comments POC-GLUCOSE METER 237 mg/dL 70-110 H TESTED AT [facility] 6720 ([facility]) (test code = [place] 1538) [id number] HEMOGLOBIN [id number] 14:19:00 Test Item Value Reference Range Interpretation Comments HEMOGLOBIN A1C ([facility]) (test code = 6.8 % 4.3-6.1 H 368) RESPIRATORY PANEL [id number] 13:56:00 Test Item Value Reference Range Interpretation Comments HUMAN METAPNEUMOVIRUS Not detected Not detected, (BEAKER) (test code = Inconclusive 2683) RHINOVIRUS (BEAKER) (test Not detected Not detected, code = 2684) Inconclusive INFLUENZA A (BEAKER) (test Not detected Not detected, code = 2685) Inconclusive INFLUENZA A SUBTYPE H1 Not detected Not detected, (BEAKER) (test code = Inconclusive 2686) INFLUENZA A SUBTYPE H3 Not detected Not detected, (BEAKER) (test code = Inconclusive 2687) INFLUENZA A SUBTYPE Not detected Not detected, H1-2009 (BEAKER) (test Inconclusive code = 3198) INFLUENZA B (BEAKER) (test Not detected Not detected, code = 2688) Inconclusive RESPIRATORY SYNCYTIAL Not detected Not detected, VIRUS (BEAKER) (test code Inconclusive = 3199) PARAINFLUENZA VIRUS 1 Not detected Not detected, (BEAKER) (test code = Inconclusive 2691) PARAINFLUENZA VIRUS 2 Not detected Not detected, (BEAKER) (test code = Inconclusive 2692) PARAINFLUENZA VIRUS 3 Not detected Not detected, (BEAKER) (test code = Inconclusive 2693) PARAINFLUENZA VIRUS 4 Not detected Not detected, (BEAKER) (test code = Inconclusive 3200) ADENOVIRUS (BEAKER) (test Not detected Not detected, code = 2694) Inconclusive CORONAVIRUS 229E (BEAKER) Not detected Not detected, (test code = 3201) Inconclusive CORONAVIRUS HKU1 (BEAKER) Not detected Not detected, (test code = 3202) Inconclusive CORONAVIRUS NL63 (BEAKER) Not detected Not detected, (test code = 3203) Inconclusive CORONAVIRUS OC43 (BEAKER) Not detected Not detected, (test code = 3204) Inconclusive BORDETELLA PERTUSSIS Not detected Not detected, (BEAKER) (test code = Inconclusive 3205) CHLAMYDOPHILA PNEUMONIAE Not detected Not detected, (BEAKER) (test code = Inconclusive 3206) MYCOPLASMA PNEUMONIAE Not detected Not detected, (BEAKER) (test code = Inconclusive 3207) [id number] 13:17:00 Test Item Value Reference Range Interpretation Comments PROCALCITONIN (BEAKER) (test code 2.35 ng/mL <0.05 H = 3036) SEPSIS RISK (ng/mL)Low: 0.05-0.50Intermediate: 0.51-2.00High: >=2.01POCT- GLUCOSE [id number] 12:03:00 Test Item Value Reference Range Interpretation Comments POC-GLUCOSE METER 126 mg/dL 70-110 H TESTED AT [place] [address] ([facility]) (test code = [address] [place] 15[address]) [id number] B-TYPE NATRIURETIC FACTOR (BNP)2017-09-20 11:15:00 Test Item Value Reference Range Interpretation Comments B-TYPE NATRIURETIC PEPTIDE (BEAKER) 22 pg/mL 0-100 (test code = 700) LACTIC ACID, VENOUS, WHOLE [id number] 11:05:00 Test Item Value Reference Range Interpretation Comments LACTATE BLOOD VENOUS (2) ([facility]) 0.5 mmol/L 0.5-2.2 (test code = 2872) Effective 01/27/2016: Units/Reference Range ChangeNew: 0.5-2.2 mmol/L Previous: 5- 20 mg/dLPOCT-GLUCOSE [id number] 10:09:00 Test Item Value Reference Range Interpretation Comments POC-GLUCOSE METER 104 mg/dL 70-110 TESTED AT [place] [address] ([facility]) (test code = [facility] 1538) [id number] STREP PNEUMONIAE [id number] 09:55:00 Test Item Value Reference Range Interpretation Comments STREP PNEUMONIAE Presumptive negative Presumptive negative ANTIGEN ([facility]) for pneumococcal for pneumococcal (test code = 1615) pneumonia - see pneumonia - see comment commen Presumptive negative for pneumococcal pneumonia, suggesting no current or recent pneumococcal infection. Infection due to S. pneumoniae cannot be ruled out since the antigen present in the sample may be below the detection limit of the test.CBC W/PLT COUNT & AUTO [id number] 09:42:00 Test Item Value Reference Range Interpretation Comments WHITE BLOOD CELL COUNT (BEAKER) 12.4 K/ L 3.5-10.5 H (test code = 775) RED BLOOD CELL COUNT (BEAKER) 2.65 M/ L 3.93-5.22 L (test code = 761) HEMOGLOBIN (BEAKER) (test code = 8.2 GM/DL 11.2-15.7 L 410) HEMATOCRIT (BEAKER) (test code = 25.3 % 34.1-44.9 L 411) MEAN CORPUSCULAR VOLUME (BEAKER) 95.5 fL 79.4-94.8 H (test code = 753) MEAN CORPUSCULAR HEMOGLOBIN 30.9 pg 25.6-32.2 (BEAKER) (test code = 751) MEAN CORPUSCULAR HEMOGLOBIN CONC 32.4 GM/DL 32.2-35.5 (BEAKER) (test code = 752) RED CELL DISTRIBUTION WIDTH 14.3 % 11.7-14.4 (BEAKER) (test code = 412) PLATELET COUNT (BEAKER) (test 328 K/CU MM 150-450 code = 756) MEAN PLATELET VOLUME (BEAKER) 10.8 fL 9.4-12.3 (test code = 754) NUCLEATED RED BLOOD CELLS 0 /100 WBC 0-0 (BEAKER) (test code = 413) IMMATURE GRANULOCYTES-RELATIVE 6 % 0-1 H PERCENT (BEAKER) (test code = 2801) (MANUAL DIFFERENTIAL)2017-09-20 09:42:00 Test Item Value Reference Range Interpretation Comments NEUTROPHILS - REL (DIFF) (BEAKER) 54 % (test code = 1359) LYMPHOCYTES - REL (DIFF) (BEAKER) 13 % (test code = 1360) MONOCYTES - REL (DIFF) (BEAKER) 11 % (test code = 1361) EOSINOPHILS - REL (DIFF) (BEAKER) 6 % (test code = 1362) METAMYELOCYTES-REL (DIFF) 3 % 0-0 H (BEAKER) (test code = 258) MYELOCYTES-REL (DIFF) (BEAKER) 2 % 0-0 H (test code = 1594) BANDS - REL (DIFF) (BEAKER) (test 11 % 0-10 H code = 1348) NEUTROPHILS - ABS (DIFF) (BEAKER) 6.70 K/ L 1.80-8.00 (test code = 1365) LYMPHOCYTES - ABS (DIFF) (BEAKER) 1.61 K/ L 1.48-4.50 (test code = 1366) MONOCYTES - ABS (DIFF) (BEAKER) 1.36 K/ L 0.00-1.30 H (test code = 1367) EOSINOPHILS - ABS (DIFF) (BEAKER) 0.74 K/ L 0.00-0.50 H (test code = 1368) METAMYELOCTYES - ABS (DIFF) 0.37 K/ L 0.00-0.00 H (BEAKER) (test code = 261) BANDS-ABS (DIFF) (BEAKER) (test 1.4 K/ L 0.0-0.8 H code = 1349) MYELOCYTES-ABS (DIFF) (BEAKER) 0.25 K/ L 0.00-0.00 H (test code = 1593) TOTAL COUNTED (BEAKER) (test code 100 = 1351) BANDS + SEGMENTED NEUTROPHILS 8.06 (BEAKER) (test code = 1352) WBC MORPHOLOGY (BEAKER) (test Normal code = 487) PLT MORPHOLOGY (BEAKER) (test Normal code = 486) ANISOCYTOSIS (BEAKER) (test code 2+ moderate = 961) POIKILOCYTES (BEAKER) (test code 2+ moderate = 966) POCT-GLUCOSE [id number] 08:34:00 Test Item Value Reference Range Interpretation Comments POC-GLUCOSE METER 55 mg/dL 70-110 L Notified R Gordon LERMA/TESTED AT (BEAKER) (test [facility] = [facility] [address] [address]) [facility] [address] [id number] 04:42:00 Test Item Value Reference Range Interpretation Comments FERRITIN (BEAKER) (test code = 361) 535 ng/mL 5-275 H IRON, TIBC, % SAT. (WITHOUT FERRITIN)2017-09-20 04:22:00 Test Item Value Reference Range Interpretation Comments IRON (BEAKER) (test code = 547) 27 ug/dL 40-160 L TOTAL IRON BINDING CAPACITY 186 ug/dL 250-450 L (BEAKER) (test code = 769) IRON % SATURATION (2) (BEAKER) 15 % 20-55 L (test code = 2590) [id number] 03:41:00 Test Item Value Reference Range Interpretation Comments MAGNESIUM (BEAKER) (test code = 1.8 mg/dL 1.6-2.6 627) [id number] 03:41:00 Test Item Value Reference Range Interpretation Comments PHOSPHORUS (BEAKER) (test code = 4.2 mg/dL 2.3-4.7 604) BASIC METABOLIC [id number] 03:32:00 Test Item Value Reference Range Interpretation Comments SODIUM (BEAKER) 138 meq/L 136-145 (test code = 381) POTASSIUM (BEAKER) 4.3 meq/L 3.5-5.1 (test code = 379) CHLORIDE (BEAKER) 110 meq/L 98-107 H (test code = 382) CO2 (BEAKER) (test 19 meq/L 22-29 L code = 355) BLOOD UREA NITROGEN 45 mg/dL 7-21 H (BEAKER) (test code = 354) CREATININE (BEAKER) 2.64 mg/dL 0.57-1.25 H (test code = 358) GLUCOSE RANDOM 116 mg/dL 70-105 H (BEAKER) (test code = 652) CALCIUM (BEAKER) 8.8 mg/dL 8.4-10.2 (test code = 697) EGFR (BEAKER) (test 18 mL/min/1.73 ESTIMA TAMMY GFR IS code = 1092) sq m NOT ACCURATE CREATININE CLEARANCE IN PREDICTING GLOMERULAR FILTRATION RATE . ESTIMATED GFR I S NOT APPLICABLE FOR DIALYSIS PATIEN TS. CREATINE KINASE (CK), TOTAL AND [id number] 03:32:00 Test Item Value Reference Range Interpretation Comments CREATINE KINASE TOTAL (BEAKER) 76 U/L 29-200 (test code = 380) CREATINE KINASE-MB (BEAKER) (test 1.9 ng/mL 0.0-6.6 code = 750) CREATINE KINASE-MB INDEX (BEAKER) 2.5 % (test code = 395) CK-MB Reference Range:<6.7 Normal6.7-10.0 Borderline>10.0 AbnormalTROPONIN [id number] 03:32:00 Test Item Value Reference Range Interpretation Comments TROPONIN I (BEAKER) (test code = 397) < ng/mL 0.00-0.03 Troponin I (TnI) levels [...] acidosis, acute neurological disease, and persistent tachyarrhythmia.POCT-GLUCOSE [id number] 01:15:00 Test Item Value Reference Range Interpretation Comments POC-GLUCOSE METER 157 mg/dL 70-110 H TESTED AT [facility] [address] ([place]) (test code = [place] [address]) [address] RAD, CHEST, 1 VIEW, NON [id number] 00:10:00Reason for exam:->RLL PNAShould this be performed at the bedside?->YesFINAL REPORT RAD, CHEST, 1 VIEW, NON DEPT INDICATION: RLL PNA COMPARISON: None T ECHNIQUE: Single frontal view of the chest. IMPRESSION:Low lung volumes.Cardiac silhouette not well visualized.Patchy airspace opacities in the right lung and left lung base concerning for a pneumonia.No pneumothorax.No acute osseous abnormality. Signed: Goldie Benson MDReport Verified Date/Time: 09/20/2017 00:10:56 Reading Location: [address] Ortho Consult Reading Room
[2022-07-13 09:49] VITALS: BMI 29.0
[2022-07-13] MEDS ORDERED: methocarbamoL 500 MG TAB PO PRN (09:53)
[2022-07-13] MEDS ORDERED: ALBUTEROL INHALER 60 PUFF/8 GM IH PRN (09:56)
[2022-07-13] MEDS ORDERED: D50W 25 GM/50 ML SYRINGE IV PRN (10:33)
[2022-07-13] MEDS ORDERED: GLUCAGON 1 MG/VIAL IM PRN (10:33)
[2022-07-13] MEDS ORDERED: D10W 125 ML IV PRN (10:40)
[2022-07-13] MEDS: GABAPENTIN 100 MG CAP PO SCH ×2 (11:20→20:00)
[2022-07-13] MEDS: INSULIN -REGULAR HUMAN 50 UNIT/0.5 ML ML SQ SCH ×3 (11:30→20:05)
[2022-07-13] MEDS ORDERED: [UNRECOGNIZED DRUG - OTHER] IH PRN (12:04)
[2022-07-13] MEDS ORDERED: ALBUTEROL IH PRN (12:04)
[2022-07-13] MEDS: SEVELAMER CARBONATE 800 MG TABLET PO SCH ×2 (12:07→17:01)
[2022-07-13 12:59] LABS: Phosphorus 3.8 mg/dL (2.5-4.9); Potassium 4.3 mmol/L (3.5-5.1)
[2022-07-13] MEDS ORDERED: methocarbamoL 500 MG TAB PO SCH (14:00)
[2022-07-13] MEDS: ISOSORBIDE DINIT 20 MG TAB PO SCH ×2 (14:09→20:00)
[2022-07-13] MEDS: HYDRALAZINE HCL 25 MG TABLET PO SCH ×2 (14:09→20:00)
[2022-07-13] MEDS: methocarbamoL 500 MG TAB PO SCH ×2 (14:09→20:00)
--- NOTE | 2022-07-13 14:56 | P.CNS ---
Date of Consult: 07/13/22 Reason for Consult: ESRD, HTN Requesting Physician: Angel Montanez Chief Complaint: S/p back surgery History of Present Illness: Pt is a 67 yo female with a hx of Type II DM with unspecified complications, chronic HTN, RA on Arava, COPD not requiring continuous O2, ESRD on iHD via a Lt UE AV[facility] at [facility] who recently underwent back surgery at [facility]. Pt reports some on going pain at the back but otherwise denies CP, dyspnea, abdominal pain or N/V. She has been sent here for rehab and recuperation. Allergies infliximab [From Remicade] Allergy (Intermediate, Verified 05/17/22 08:06) Hives sulfamethoxazole [From Bactrim] Allergy (Intermediate, Verified 05/17/22 08:06) Eye Swelling/Nausea trimethoprim [From Bactrim] Allergy (Intermediate, Verified 05/17/22 08:06) Eye Swelling/Nausea codeine Allergy (Verified 05/17/22 08:06) Nausea/Vomiting victoza Adverse Reaction (Uncoded 05/17/22 08:06) Hypoglycemia, leg cramping Home Medications: Abatacept [Orencia] 1,000 unit SQ SEECOM 05/25/18 Ascorbic Acid [Vitamin C*] 500 mg PO DAILY 05/25/18 Aspirin Chewable [Aspirin Chewable*] 81 mg PO DAILY 05/25/18 Docosahexanoic AC/Epa [Fish Oil 1,000 MG*] 1 tab PO DAILY 05/25/18 Furosemide [Lasix*] 40 mg PO DAILY 05/25/18 Hydralazine [Apresoline*] 25 mg PO TID 05/25/18 Leflunomide [Arava] 20 mg PO DAILY 05/25/18 Loratadine [Claritin*] 10 mg PO DAILY 05/25/18 Pravastatin Sodium [Pravachol] 40 mg PO DAILY 05/25/18 allopurinoL [Zyloprim*] 100 mg PO DAILY 05/25/18 calcitrioL [Rocaltrol] 0.25 mcg PO DAILY 05/25/18 carvediloL [Coreg*] 25 mg PO BID 05/25/18 Fluticasone/Umeclidin/Vilanter [Trelegy Ellipta 100-62.5-25] 1 inh PO BEDTIME 08/08/18 Albuterol Sulfate [Proair Hfa] 1 puff IH Q4HP PRN 05/13/22 Cinacalcet HCl [Sensipar] 30 mg PO DAILY 05/13/22 Cyclosporine [Restasis] 2 drop EACH EYE DAILY 05/13/22 Duloxetine HCl 30 mg PO DAILY 05/13/22 Famotidine [Pepcid] 20 mg PO DAILY 05/13/22 Insulin Glargine Human [Lantus*] 20 units SQ BEDTIME 05/13/22 Isosorbide Dinit [Isordil] 20 mg PO TID 05/13/22 Losartan Potassium 100 mg PO DAILY 05/13/22 Methoxy Peg-Epoetin Beta [Mircera] 150 mcg IJ EVERY 7TH DAY 05/13/22 Sevelamer Carbonate [Renvela] 800 mg PO TIDWM 05/13/22 Famotidine 20 mg PO DAILY 07/13/22 Linaclotide [Linzess] 290 mg PO DAILY 07/13/22 Multivit-Min/Iron/Folic Acid/K [Multi-Day Plus Minerals Tablet] 1 tab PO DAILY 07/13/22 Oxycodone HCl/Acetaminophen [Percocet 5/325 Tab*] 1 tab PO Q6HP PRN 07/13/22 - Past Medical/Surgical History Diabetic: Yes -: pneumonia -: rheumatoid arthritis -: hypertension -: hyperlipidemia -: copd -: spleenectomy -: knee surg -: back surg -: tens unit in back - Social History Alcohol use: No CD- Drugs: Yes Caffeine use: No Place of Residence: Home Review of Systems General: Weakness Eyes: Unremarkable ENT: Unremarkable Respiratory: Unremarkable Cardiovascular: Unremarkable Gastrointestinal: Unremarkable Genitourinary: Unremarkable Musculoskeletal: Back Pain Integumentary: Unremarkable Neurological: Weakness Lymphatics: Unremarkable Physical Examination Temp Pulse Resp BP Pulse Ox 97.0 F 90 18 137/63 93 07/13/22 09:47 07/13/22 14:05 07/13/22 11:21 07/13/22 14:05 07/13/22 11:21 General: Alert, Cooperative, Mild distress HEENT: Atraumatic, Normocephalic, EOMI Respiratory: Clear to auscultation bilaterally, Normal air movement Cardiovascular: Regular rate/rhythm, Normal S1 S2 Gastrointestinal: Soft and benign, Non-distended, No tenderness Musculoskeletal: No swelling, No contractures Integumentary: No significant lesion Neurological: Normal speech, Normal tone, Normal affect Laboratory Data (last 24 hrs) 07/13/22 12:23: Sodium 132 L, Potassium 4.3, BUN 52 H, Creatinine 5.58 H*, Glucose 212 H, Phosphorus 3.8 Conclusions/Impression: 1. ESRD 2. Hypertensive CKD/ESRD 3. COPD, unspecified 4. RA 5 Degenerative disc disease 6. Secondary hyperparathyroidism due to CKD -Will cont iHD on a TTS basis while here at rehab, dialysis orders for tmrw entered. -Labs reviewed and metab profile and lytes acceptable. -CaPhos < 55, total Ca < 10.1, cont cacimimetic, active Vit D, phos binders -Check H/H, dose GEMMA +/- IV iron if Hb is < 10 -Cont home BP meds, trend BP. -OT/PT per rehab program. Santos Garay MD, [facility]
[2022-07-13 16:52] LABS: Specific Gravity 1.016 (1.005-1.030); Urine Bacteria <20 /HPF (<20); Urine Bilirubin NEGATIVE (Negative); Urine Blood Negative (Negative); Urine Clarity Turbid (Clear); Urine Color Light-Yellow (Yellow); Urine Glucose TRACE (Negative); Urine Protein 1+ (Negative); Urine Urobilinogen Normal (Normal); Urine pH 5.5 (5.0-7.0)
[2022-07-13] MEDS: FUROSEMIDE 40 MG TABLET PO SCH (17:00)
[2022-07-13] MEDS: Oxycodone HCl/Acetaminophen 1 TAB TAB PO PRN (17:00)
[2022-07-13] MEDS: FAMOTIDINE 20 MG TAB PO SCH (17:40)
[2022-07-13] MEDS: carvediloL 25 MG TAB PO SCH (17:41)
[2022-07-13] MEDS: APIXABAN 2.5 MG TABLET PO SCH (20:00)
[2022-07-13] MEDS: DOCUSATE NA/SENNA CONC 1 TAB PO PRN (20:00)
[2022-07-13] MEDS: MELATONIN 3 MG TABLET PO PRN (20:00)
[2022-07-13] MEDS ORDERED: Oxycodone HCl/Acetaminophen 1 TAB TAB PO SCH (20:00)
[2022-07-13] MEDS: ATORVASTATIN 40 MG TAB PO SCH (20:00)
[2022-07-13] MEDS: TRELEGY ELLIPTA 100 MCG IH SCH (20:00)
[2022-07-13] MEDS: INSULIN GLARGINE 100 UNIT/ML SQ SCH (20:06)
--- NOTE | 2022-07-14 00:16 | CON ---
Date of Consultation: 07/13/2022 Chief Complaint: Low back pain prior to and following extensive lumbar surgery. History Of Present Illness: Ms. Ziegler is a 67-year-old right-handed patient who had progressive chr onic bilateral lower extremity pain with ambulation, forcing her to have limited mobility. She was i john and found to have extensive multilevel lumbar spinal stenosis from L2-L3 down towards S1. In a ddition, she had lumbar scoliosis. To address her condition, she had multilevel lumbar laminectomy w ith fusion on July 05, 2022 extending from lumbar L3 down to S1. Her multiple comorbid conditions include end-stage renal disease on hemodialysis 3 days weekly. She has an arteriovenous fistula for that. She has rheumatoid arthritis with pain in the extremities. She has diabetes mellitus type 2. Also, hypertension and prior hospitalizations with pneumonia. Prior to her surgery, she ambulated with a 4 wheel walker and did perform activities of daily living independently. She has a , neema vargas is not able to provide significant help for her due to his declining condition and as a result of her significant postoperative restriction due to pain and arthritic changes, it is necessary for her to receive significant assistance in her recovery in order to return home. She has significant risk of worsening nutrition given the significant pain and also skin breakdown in addition to deep vein th rombosis, risk of falling with further injury and bleeding and worsening lumbar spinal stenosis given the recent surgery. Her goal is to return home and live independently, which she was able to do jennifer or to her progressive pain. As a result of her restrictions given the recent surgery, she would dire ctly benefit from significant aggressive physical therapy at least 3 hours a minimum between physical and occupational therapy in an acute rehabilitation setting. She is expected to have over a period of 6 days to complete 900 minutes of therapy. She does have multiple comorbid conditions, which incl ude end-stage renal disease on hemodialysis for which she will be seen by the Renal Service and have dialysis done on Monday, , and Monday basis. Given her condition, as noted she will be be st served with acute inpatient rehabilitation. She is able to withstand the required hours of therap y in a safe manner in the inpatient rehabilitation unit and her comorbid conditions will be managed a s noted by physician on a daily basis with a minimum of 3 days weekly. She was screened for COVID-19. She did not have any recent fevers, cough, any chills, or sore throat . She did not have travel in regions endemic for COVID or other communicable disease. She has had n egative COVID-19 test in the last 2 weeks. Family History: Noncontributory. Social History: She lives with her at home. She has no habits such as smoking, drinking alc ohol, or using illegal drugs. She does drink caffeinated beverages. She has 2 sitters at home. Past Surgical History: Splenectomy, bilateral knee surgery, back surgery, and placement of TENS unit s. Allergies: REMICADE, SULFAMETHOXAZOLE, TRIMETHOPRIM, CODEINE, AND VICTOZA. Current Medications: Allopurinol 100 mg daily. Eliquis 2.5 mg twice daily. Vitamin C 500 mg daily. Aspirin 81 mg daily. Lipitor 40 mg at bedtime. Rocaltrol 1.25 mcg on Monday, , Monday. Coreg 25 mg twice daily. Sensipar 30 mg daily. Cymbalta 30 mg daily. Pepcid 20 mg daily. Fish oil 1000 mg daily. Lasix 40 mg twice daily. Gabapentin 100 mg twice daily. She has a mild insulin sli ding scale, insulin glargine 20 units subcutaneously at bedtime. Claritin 10 mg daily. Cozaar 100 m g daily. Melatonin 3 mg at bedtime. Robaxin 500 mg 3 times daily. Percocet 1 tablet every 6 hours as needed. Centrum 1 tab daily. Senokot-S 2 tablets at bedtime. Renvela 800 mg 3 times daily. Laboratory Studies: White blood cell count 10.8, hemoglobin 9.1, hematocrit 26.9, and platelets 230. Sodium 135, potassium 4.5, glucose 170, BUN 56, creatinine 6.01, calcium 9.7, magnesium 2.2. X-ray imaging pending. Review of Systems: Ms. Ziegler reports no recent fevers, chills, nausea, vomiting, myalgias, or arthralgias. She does warren ve chronic low back pain radiating into the lower extremities and pain related to her extensive lumba r laminectomy. She has no psychiatric issues. No genitourinary issues. No active gastrointestinal issues. No dermatological issues. Physical Examination: Vital Signs: Blood pressure 126/59, pulse 92, respiratory rate 16, temperature 97.7, oxygen saturati on 96%. General: Ms. Ziegler is resting in bed. She denies significant pain, which is around 2/10 when lying in bed. This pain does get to about 8/10 when twisting and getting out of bed. HEENT: She is normocephalic, atraumatic. Sclerae anicteric. Oropharynx is moist and pink. Neck: Supple. Chest: Clear. Heart: Regular. Abdomen: Obese. Extremities: No significant edema, clubbing, or cyanosis. Her back surgical site, which is well ban daged shows good hemostasis. In terms of a strength examination, the upper extremities show no signi ficant weakness and in the lower extremities, she does have pain limiting her ability to lift the leg s off the bed, but does not have focal weakness in the upper or lower extremities. Current Level Of Functioning: Her bed mobility is contact guard assistance. Sit to stand and transf ers performed with maximum assistance requiring verbal cues. Toilet transfers with maximum assistanc e with a rolling walker. For gait, she is able to ambulate 10 feet twice with maximum assistance usi ng a rolling walker. She self propels a wheelchair 35 feet at a time with breaks due to back pain, w hich is a significant limitation. She does require and has used a smoking pipe liner for lower body dressing wi th undergarments and a long handled sponge was used to assist her with bathing, maximum assistance re quired there. Rehabilitation Medical Assessment And Plan: Ms. Ziegler is a 67-year-old patient with extensive lumba r surgery following multilevel lumbar cord compression with neurogenic claudication with etiologic di agnosis, spinal stenosis in lumbar region with neurogenic claudication M48.06. She has active comorb id conditions including diabetes mellitus type 2, requiring monitoring with adjustment of insulin as required. She has end-stage renal disease with hemodialysis on Monday, , Monday followed by the Renal Service. She has rheumatoid arthritis, which limits the use of the upper extremities. 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 She has l umbar spinal scoliosis with independent pain in the region. She was recently had lumbar spinal surge ry on the of this month. Please note the rehabilitation impairment group has other nontraumatic spinal cord dysfunction 04.130. Her etiologic diagnosis M48.062, which is the spinal stenosis in alexandru mbar region with neurogenic claudication. Active Comorbid Conditions Present On Admission: 1.End-stage renal disease on hemodialysis, managed by the Renal Service. 2.Diabetes mellitus, managed by adjusting medications appropriately. 3.Hypertension, managed by adjusting medications. 4.Rheumatoid arthritis, managed by medication adjustment. 5.Significant pain in the lower back, managed by pain medications. 6.Risk for deep vein thrombosis, managed with anticoagulation. 7.Significant risk of falls. She has fall precautions in place. 8.Risk of infection. She is managed by white blood cell count, following that. 9.She has risk of malnutrition and poor healing. She is followed by prealbumin and nutritional stat us. 10.She has a risk of poor wound healing. The wounds will be followed by nursing staff on daily basi s and the [facility] as needed. Risk Of Complications: As noted she has risk of skin breakdown, deep vein thrombosis, pain, fluid re tention given her hemodialysis requirements and also bleeding, poor wound healing, falling. Isolation requirements: None. Impact of her comorbid conditions: 1.As noted given her end-stage renal dialysis, she has to have hemodialysis 3 times weekly, which ma y impact the timing of her therapy that will be worked around. 2.She has diabetes mellitus, which requires following her blood sugars for potential for very low or very elevated blood sugars and she may require insulin adjustments as appropriate that will be follo wed. 3.Arthritic pain that will be addressed by her current regimen of medications. 4.Her significant pain from the lumbar back surgery will be addressed by adjusting medications as ap propriate. 5.Poor nutrition given recent surgery and that may impact healing and that will be addressed as well . Rehabilitation specific plan: 1.As noted she is admitted to the comprehensive rehabilitation inpatient facility and will be tolera ting the intensive physical and occupational therapy for a minimum of 900 minutes 6 days weekly. 2.Rehabilitation will consist of again minimum of 900 minutes for 6 days and she will receive physic al and occupational therapy. She will receive daily evaluation by myself, physician and nursing josie vizcaino as appropriate. Renal Service will attend to the patient if needed. The Wound Care Service will b e dressing the patient. 3.Diabetic nutrition. Staff member will assist the patient with diet management. If needed she has the opportunity for psychiatric care, if depression becomes an issue. As noted she will benefit fro m in the interdisciplinary inpatient rehabilitation program, given the inability of her to go home at this point, safely. Barriers To Discharge: 1.She has a potential for ongoing infection and that will be addressed on a daily basis. 2.The worsening pain in the lower back will be addressed with medications. 3.Risk of deep vein thrombosis will be addressed with medications for DVT prophylaxis. 4.The potential for depression will be addressed with antidepressants as needed. Estimated Length Of Stay: 15 days. Disposition: She is expected to be returning home with her , although he may provide limited help. She will also receive ongoing therapy likely via Home Health for physical and occupational the rapy. Prognosis: Good. Rehabilitation Goals: 1.It is expected that she will be able to independently transfer from bed to chair to commode. She should be able to perform modified independence for her showers, upper and lower body dressing. 2.She should be able to ambulate household distances with modified independence with an assistive de vice such as a rolling walker. 3.Her pain should be well managed for her to perform these activities without any significant diffic ulty. 4.The patient's goals were reviewed with the patient. I acknowledge that I personally performed a full physical examination on Ms. Wendy Ziegler within 24 hours of her admission and determined that she would be able to tolerate all the physical and occupa tional therapy assignments as indicated with no significant difficulty. She does require intensive management of her renal status and diabetes and that will also be done. GUNJAN/TONY Voice ID: [id number] Report ID: [id number]
[2022-07-14] MEDS: Oxycodone HCl/Acetaminophen 1 TAB TAB PO PRN ×3 (02:25→14:04)
[2022-07-14 04:35] LABS: Absolute Lymphocytes (CBC) 2.3 K/uL (0.7-4.9); Hematocrit 23.2 % (36.0-45.0); Lymphocytes % 23.8 % (15.3-44.8); MCV 93.4 fL (80-100); MPV 8.6 fL (7.6-11.3); RBC Red Blood Cell Count 2.48 M/uL (3.86-4.86)
[2022-07-14 05:00] LABS: Albumin 1.9 g/dL (3.4-5.0); Magnesium 2.4 mg/dL (1.8-2.4); Potassium 4.8 mmol/L (3.5-5.1); Prealbumin 11.3 mg/dL (20-40)
[2022-07-14] MEDS: carvediloL 25 MG TAB PO SCH ×2 (05:28→18:23)
[2022-07-14] MEDS: LINACLOTIDE 290 MG PO SCH (06:30)
[2022-07-14] MEDS: DOCOSAHEXANOIC AC/EPA 1000 MG PO SCH (07:13)
[2022-07-14] MEDS: ASCORBIC ACID 500 MG TABLET PO SCH (07:13)
[2022-07-14] MEDS: MULTIVITAMIN TAB PO SCH (07:14)
[2022-07-14] MEDS: GABAPENTIN 100 MG CAP PO SCH (07:14)
[2022-07-14] MEDS: LORATADINE 10 MG TAB PO SCH (07:14)
[2022-07-14] MEDS: allopurinoL 100 MG TAB PO SCH (07:14)
[2022-07-14] MEDS: DULOXETINE 30 MG CAP PO SCH (07:14)
[2022-07-14] MEDS: FAMOTIDINE 20 MG TAB PO SCH (07:15)
[2022-07-14] MEDS: INSULIN -REGULAR HUMAN 50 UNIT/0.5 ML ML SQ SCH ×4 (07:30→20:02)
[2022-07-14] MEDS: LOSARTAN POTASSIUM 50 MG TABLET PO SCH (07:42)
[2022-07-14] MEDS: SEVELAMER CARBONATE 800 MG TABLET PO SCH ×3 (07:43→17:00)
[2022-07-14] MEDS: ASPIRIN EC 81 MG TAB PO SCH (07:43)
[2022-07-14] MEDS: APIXABAN 2.5 MG TABLET PO SCH ×2 (07:43→19:45)
[2022-07-14] MEDS: CYCLOSPORINE 0.05% OPTH SCH (07:45)
[2022-07-14] MEDS: LEFLUNOMIDE 20 MG PO SCH (07:52)
[2022-07-14] MEDS ORDERED: CALCITROL 0.25 MCG CAP PO SCH ×2 (08:00)
[2022-07-14] MEDS ORDERED: CINACALCET HCL 30 MG TAB PO SCH (08:00)
[2022-07-14] MEDS: methocarbamoL 500 MG TAB PO SCH ×3 (08:35→19:45)
[2022-07-14] MEDS: HYDRALAZINE HCL 25 MG TABLET PO SCH ×3 (08:36→20:02)
[2022-07-14] MEDS: ISOSORBIDE DINIT 20 MG TAB PO SCH ×3 (08:36→20:02)
[2022-07-14] MEDS: FUROSEMIDE 40 MG TABLET PO SCH ×2 (08:36→18:24)
--- NOTE | 2022-07-14 15:30 | P.PN ---
Nephrology note: (S) Seen on HD, tolerating session, BP acceptable, reports sore/tired post therapy (O) vitals reviewed in the EM General: Alert, Cooperative, Mild distress HEENT: Atraumatic, Normocephalic, EOMI Respiratory: Clear to auscultation bilaterally, Normal air movement Cardiovascular: Regular rate/rhythm, Normal S1 S2 Gastrointestinal: Soft and benign, Non-distended, No tenderness Musculoskeletal: No swelling, No contractures Ext: Lt UE AVF Integumentary: No significant lesion Neurological: Normal speech, Normal tone, Normal affect Laboratory Data (last 24 hrs) 07/13/22 12:23: Sodium 132 L, Potassium 4.3, BUN 52 H, Creatinine 5.58 H*, Glucose 212 H, Phosphorus 3.8 Conclusions/Impression: 1. ESRD 2. Hypertensive CKD/ESRD 3. COPD, unspecified 4. RA 5 Degenerative disc disease 6. Secondary hyperparathyroidism due to CKD 7. Anemia 2nd to CKD, post surgical, other 8. Abnormality of albumin -Will cont iHD on a TTS basis while here at rehab -Pre-dialysis labs reviewed -CaPhos < 55, but total corrected Ca is elevated, will raise calcimimetic dose, temp suspend active Vit D and check PTH levels, cont phos binders -Hb quite low but no need to transfuse yet, will place on Ferrlecit and Retacrit doses with HD -Cont home BP meds, trend BP. -OT/PT per rehab program. Santos Garay MD, [facility]
[2022-07-14] MEDS: SOD FERRIC GLUC COMPLX/SUCROSE 125 MG in NA CHLORIDE 0.9% 100 ML IV SCH (16:00)
[2022-07-14] MEDS: EPOETIN ALFA 10,000 UNIT/ML VIAL IV SCH (16:15)
[2022-07-14] MEDS: GABAPENTIN 300 MG CAP PO SCH (19:45)
[2022-07-14] MEDS: ATORVASTATIN 40 MG TAB PO SCH (19:45)
[2022-07-14] MEDS: TRELEGY ELLIPTA 100 MCG IH SCH (19:46)
[2022-07-14] MEDS: BISACODYL 10 MG RECTAL SUPP PR PRN (19:46)
[2022-07-14] MEDS: MELATONIN 3 MG TABLET PO PRN (19:46)
[2022-07-14] MEDS: INSULIN GLARGINE 100 UNIT/ML SQ SCH (20:02)
[2022-07-14] MEDS: DOCUSATE NA/SENNA CONC 1 TAB PO PRN (20:02)
--- NOTE | 2022-07-14 20:58 | PN ---
Date of Progress Note: 07/14/2022 A [id number]-qq-[id number] visit with the patient, Wendy Ziegler. Subjective: Ms. Ziegler is doing well. She denies significant pain at the surgical site on the back. She reports some difficulty with sleeping and when doing therapy, she did note that the pain medica tion would run out. She does have mild pain related to her rheumatoid arthritis. Review of Systems: She denies any fevers or chills. Significant nausea. There is some constipation. She did receive a n enema prior to coming to this hospital where she did have a bowel movement. She is willing to try a suppository. Otherwise, has some rjsc-qv-ospuiwkc back pain with mobilization and no other positiv es on a 10 point systems review. Physical Examination: Vital Signs: Blood pressure 134/60, pulse 94, respiratory rate 16, temperature 97.0, oxygen saturati on 97%. Weight 180 pounds, height 5 feet 6 inches. General: Ms. Ziegler is resting in bed. She denies any significant issues. Lungs: She is clear to auscultation. Abdomen: Soft, but obese. Back: Her surgical site in the back has good hemostasis. Extremities: Mild edema in the lower extremities. Laboratory Studies: Complete blood count with differential shows white blood cell count 9.6; hemoglo bin low at 7.6, she is an end-stage renal disease patient on hemodialysis and is getting Procrit week ly; hematocrit 23.3; platelets 332. Her creatinine is elevated at 6.15 and she is having dialysis pe r [facility]al [facility] 3 times weekly. Sodium 134, potassium 4.8, chloride 97, BUN 61, blood glucose ranged from 141-261. Prealbumin is 11.3 with albumin being low at 1.9, making eqpxznla-ke-pavlow malnutrit ion an additional diagnosis. Urinalysis shows esterase 250, white blood cell count 5-10, negative ni trite and 1+ protein. COVID-19 testing is negative. Imaging Studies: No new imaging studies. Medications: Allopurinol 100 mg daily. Eliquis 2.5 mg daily for DVT prophylaxis. Vitamin C 500 mg daily. Aspirin 81 mg daily. Lipitor 40 mg. Dulcolax 10 mg suppository as needed. Coreg 25 mg twic e daily. Cymbalta 30 mg daily. Procrit 10,000 units with every hemodialysis. Pepcid 20 mg daily. Ferric sodium gluconate complex 125 mg every hemodialysis. Fish oil 1000 mg daily. Lasix 40 mg twic e daily. Gabapentin 300 mg twice daily. Apresoline 25 mg 3 times daily. Insulin glargine 20 units at bedtime. Claritin 10 mg daily. Isordil 20 mg 3 times daily. Cozaar 100 mg daily. Melatonin 3 m g at bedtime. Robaxin 500 mg 3 times daily. Percocet 5/325 one tablet every 4 hours as needed. Sen okot 2 tabs at bedtime. Renvela 800 mg 3 times daily. Functional Status: Ms. Ziegler is able to perform bed mobility with multiple sit to stand and transfe rs with modified assistance using a rolling walker. She did transfer for toilet and over the toilet commode with moderate assistance using a rolling walker. On gait and mobilization, she did ambulate 15 feet and 40 feet with moderate assistance using a rolling walker. She did have a tendency to lean to the left. She self propelled a wheelchair 250 feet with upper extremities with standby assistanc e. She was able to negotiate threshold well. Progress toward rehabilitation goals: She is making good progress with physical and occupational the rapy towards her goals of being modified independent with mobilization activities of daily living, tr ansfers and dressing otherwise. Assessment: Ms. Ziegler is a 67-year-old patient with extensive multilevel lumbar decompression with laminectomy. She had neurogenic claudication as her etiologic reason for admission. She does have d iabetes mellitus with blood sugars requiring adjustments of insulin. She has end-stage renal disease , on hemodialysis Monday, , Monday, which is followed by Renal Service. She has rheumatoi d arthritis, which does cause some pain limiting the use of the upper extremities. She also has phos phorous metabolism disorder managed by the Renal Service. In addition, she has spinal scoliosis. Comorbid conditions that are impacting rehab process: As noted, arthritic changes do restrict her so me in terms of using her upper extremities and she has end-stage renal disease on hemodialysis, which does take away time from her therapy as she must do hemodialysis 3 times weekly and that is work kate und to get her to have the dialysis. She does have a risk of infection given her back surgery includ ing meningitis, white blood cell count and temperature to follow. She does have a risk of falls give n the significant pain and extensive back surgery. Fall precautions are adhered to at all times. Sh leonidas has a significant risk of malnutrition given the low prealbumin that is managed by high-protein t as well as protein supplementation as per Renal Service. She has hypertension managed by adjusting medications. She has a risk of depression managed by antidepressant. GUNJAN/TONY Voice ID: [id number] Report ID: [id number]
[2022-07-15] MEDS: carvediloL 25 MG TAB PO SCH ×2 (05:34→17:10)
[2022-07-15] MEDS: LINACLOTIDE 290 MG PO SCH (06:11)
[2022-07-15 06:43] LABS: Rheumatoid Factor NEG (NEG)
[2022-07-15] MEDS: INSULIN -REGULAR HUMAN 50 UNIT/0.5 ML ML SQ SCH ×4 (07:15→19:54)
[2022-07-15] MEDS: CYCLOSPORINE 0.05% OPTH SCH (07:15)
[2022-07-15] MEDS: LOSARTAN POTASSIUM 50 MG TABLET PO SCH (07:47)
[2022-07-15] MEDS: ASCORBIC ACID 500 MG TABLET PO SCH (07:48)
[2022-07-15] MEDS: MULTIVITAMIN TAB PO SCH (07:48)
[2022-07-15] MEDS: SEVELAMER CARBONATE 800 MG TABLET PO SCH ×3 (07:48→17:11)
[2022-07-15] MEDS: methocarbamoL 500 MG TAB PO SCH ×3 (07:49→19:56)
[2022-07-15] MEDS: ASPIRIN EC 81 MG TAB PO SCH (07:49)
[2022-07-15] MEDS: LORATADINE 10 MG TAB PO SCH (07:49)
[2022-07-15] MEDS: APIXABAN 2.5 MG TABLET PO SCH ×2 (07:49→19:52)
[2022-07-15] MEDS: FAMOTIDINE 20 MG TAB PO SCH (07:50)
[2022-07-15] MEDS: DOCOSAHEXANOIC AC/EPA 1000 MG PO SCH (07:50)
[2022-07-15] MEDS: allopurinoL 100 MG TAB PO SCH (07:50)
[2022-07-15] MEDS: DULOXETINE 30 MG CAP PO SCH (07:50)
[2022-07-15] MEDS: GABAPENTIN 300 MG CAP PO SCH ×2 (07:50→19:53)
[2022-07-15] MEDS: FUROSEMIDE 40 MG TABLET PO SCH ×2 (07:50→17:10)
[2022-07-15] MEDS: CINACALCET HCL 60 MG PO SCH (07:51)
[2022-07-15] MEDS: LEFLUNOMIDE 20 MG PO SCH (07:51)
[2022-07-15] MEDS ORDERED: CALCITROL 0.25 MCG CAP PO SCH (08:00)
[2022-07-15] MEDS: Oxycodone HCl/Acetaminophen 1 TAB TAB PO PRN ×2 (08:49→13:18)
--- NOTE | 2022-07-15 09:30 | P.RH.PN ---
Estimated Length of Stay: 12 Expected Discharge Date: 07/25/22 Discharge Disposition Plan: Home Family Support: Yes Alf Goal: Mobility, Transfers, Self Care Vital Signs: Last Vital Signs Temp 98.2 F 07/15/22 06:35 Pulse 85 07/15/22 07:50 Resp 18 07/15/22 08:49 BP 119/58 L 07/15/22 07:50 Pulse Ox 94 07/15/22 08:49 Laboratory: Laboratory Last Values WBC 9.60 K/uL (4.3-10.9) 07/14/22 03:56 RBC 2.48 M/uL (3.86-4.86) L 07/14/22 03:56 Hgb 7.6 g/dL (12.0-15.0) L 07/14/22 03:56 Hct 23.2 % (36.0-45.0) L 07/14/22 03:56 MCV 93.4 fL (80-100) 07/14/22 03:56 MCH 30.8 pg (27.0-35.0) 07/14/22 03:56 MCHC 33.0 g/dL (32.0-36.0) 07/14/22 03:56 RDW 16.6 % (12.1-15.2) H 07/14/22 03:56 Plt Count 332 K/uL (152-406) 07/14/22 03:56 MPV 8.6 fL (7.6-11.3) 07/14/22 03:56 Neutrophils % 51.8 % (41.7-73.7) 07/14/22 03:56 Lymphocytes % 23.8 % (15.3-44.8) 07/14/22 03:56 Monocytes % 13.8 % (3.3-12.3) H 07/14/22 03:56 Eosinophils % 9.7 % (0-4.4) H 07/14/22 03:56 Basophils % 0.9 % (0-1.3) 07/14/22 03:56 Absolute Neutrophils 5.0 K/uL (1.8-8.0) 07/14/22 03:56 Absolute Lymphocytes 2.3 K/uL (0.7-4.9) 07/14/22 03:56 Absolute Monocytes 1.3 K/uL (0.1-1.3) 07/14/22 03:56 Absolute Eosinophils 0.9 K/uL (0-0.5) H 07/14/22 03:56 Absolute Basophils 0.1 K/uL (0-0.5) 07/14/22 03:56 Sodium 134 mmol/L (136-145) L 07/14/22 03:56 Potassium 4.8 mmol/L (3.5-5.1) 07/14/22 03:56 Chloride 97 mmol/L (98-107) L 07/14/22 03:56 Carbon Dioxide 27 mmol/L (21-32) 07/14/22 03:56 Anion Gap 14.8 mEq/L (5.0-15.0) 07/14/22 03:56 BUN 61 mg/dL (7-18) H 07/14/22 03:56 Creatinine 6.15 mg/dL (0.55-1.3) H* 07/14/22 03:56 Est GFR (CKD-EPI) 7 ml/min (=/>90) L 07/14/22 03:56 Glucose 180 mg/dL (74-106) H 07/14/22 03:56 POC Glucose 182 mg/dL (65-120) H 07/15/22 06:56 Calcium 9.4 mg/dL (8.5-10.1) 07/14/22 03:56 Phosphorus 3.8 mg/dL (2.5-4.9) 07/13/22 12:23 Magnesium 2.4 mg/dL (1.8-2.4) 07/14/22 03:56 Albumin 1.9 g/dL (3.4-5.0) L 07/14/22 03:56 Prealbumin 11.3 mg/dL (20-40) L 07/14/22 03:56 PTH Intact 113.2 pg/mL (18.4-80.1) H 07/15/22 06:14 Urine Color Light-yellow (Yellow) 07/13/22 13:55 Urine Clarity Turbid (Clear) H 07/13/22 13:55 Urine pH 5.5 (5.0-7.0) 07/13/22 13:55 Ur Specific [place] 1.016 (1.005-1.030) 07/13/22 13:55 Glucose (UA)(Auto) Trace (Negative) H 07/13/22 13:55 Urine Ketones Negative (Negative) 07/13/22 13:55 Urine Blood Negative (Negative) 07/13/22 13:55 Urine Nitrite Negative (Negative) 07/13/22 13:55 Urine Bilirubin Negative (Negative) 07/13/22 13:55 Urine Urobilinogen Normal (Normal) 07/13/22 13:55 Ur Leukocyte Esterase 250 Ronny/uL (Negative) H 07/13/22 13:55 Urine RBC 5-10 /HPF (None Seen) H 07/13/22 13:55 Urine WBC 5-10 /HPF (<5) 07/13/22 13:55 Ur Squamous Epith Cells >50 /HPF (None Seen) H 07/13/22 13:55 U Non-Squamous Epi Cells <5 /HPF (None Seen) 07/13/22 13:55 Urine Bacteria <20 /HPF (<20) 07/13/22 13:55 Urine Total Protein 1+ (Negative) H 07/13/22 13:55 Rheumatoid Factor Neg (NEG) 07/15/22 06:14 SARS-CoV-2 Rap RNA(RT-PCR) Negative (NEGATIVE) 07/13/22 11:45 Weight: 180 lb Wound Present: No Closed Surgical Incision Present: Yes Negative Pressure Wound Therapy Present: No Physician Update: She has significant pain in the back. Increased pain medication including gabapentin was doubled. Hgb 7.6 will be on iron and procirt with dialysis. Moderate malutrition with low prealbumin and albumin. She is on HD via the renal service. She is at max to mod assist with bed mobility, transfers, walker 63' with RW limited by pain. She finally had a BM after the dulcolax. Max assistance with transfers shower, toilet, lower body dressing. She live with who has physical limitation and cannot provide her with much assistance. Goal of min assistance with bed to chair transfers and mod as sistance for toileting and lower body dressing. 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 Please see the Rehabilitation Signature page for all necessary signatures.
[2022-07-15] MEDS: HYDRALAZINE HCL 25 MG TABLET PO SCH ×3 (09:59→19:53)
[2022-07-15] MEDS: ISOSORBIDE DINIT 20 MG TAB PO SCH ×3 (09:59→19:53)
[2022-07-15] MEDS: LIDOCAINE 4% PATCH TOP SCH (10:41)
[2022-07-15] MEDS ORDERED: ORENCIA 750 MG IV SCH (13:30)
--- NOTE | 2022-07-15 17:17 | P.PN ---
Nephrology note: (S) Resting comfortably, dialyzed yesterday without issues, no CP or dyspbea. (O) vitals reviewed in the EM General: Alert, Cooperative, Mild distress HEENT: Atraumatic, Normocephalic, EOMI Respiratory: Clear to auscultation bilaterally, Normal air movement Cardiovascular: Regular rate/rhythm, Normal S1 S2 Gastrointestinal: Soft and benign, Non-distended, No tenderness Musculoskeletal: No swelling, No contractures Ext: Lt UE AVF Integumentary: No significant lesion Neurological: Normal speech, Normal tone, Normal affect Laboratory Data (last 24 hrs) 07/13/22 12:23: Sodium 132 L, Potassium 4.3, BUN 52 H, Creatinine 5.58 H*, Glucose 212 H, Phosphorus 3.8 Conclusions/Impression: 1. ESRD 2. Hypertensive CKD/ESRD 3. COPD, unspecified 4. RA 5 Degenerative disc disease 6. Secondary hyperparathyroidism due to CKD 7. Anemia 2nd to CKD, post surgical, other 8. Abnormality of albumin -Will cont iHD on a TTS basis while here at rehab -Pre-dialysis labs reviewed, will get metab panel at least once a week -CaPhos < 55, but total corrected Ca was elevated, did temp suspend active Vit D and checked PTH level which is < 150, will cont Sensipar at lower dose and recheck PTH levels next week, cont phos binders -Hb quite low but no need to transfuse yet, did place on Ferrlecit and Retacrit doses with HD, transfuse per typical thresholds. -Cont home BP meds, trend BP. -OT/PT per rehab program. Santos Garay MD, [facility]
[2022-07-15] MEDS: ATORVASTATIN 40 MG TAB PO SCH (19:54)
[2022-07-15] MEDS: INSULIN GLARGINE 100 UNIT/ML SQ SCH (19:57)
[2022-07-15] MEDS: DOCUSATE NA/SENNA CONC 1 TAB PO SCH (19:57)
[2022-07-15] MEDS: TRELEGY ELLIPTA 100 MCG IH SCH (19:58)
[2022-07-16] MEDS: carvediloL 25 MG TAB PO SCH ×2 (05:01→17:31)
[2022-07-16] MEDS: LINACLOTIDE 290 MG PO SCH (06:30)
[2022-07-16 06:43] LABS: MCV 94.9 fL (80-100); MPV 8.5 fL (7.6-11.3); RBC Red Blood Cell Count 2.42 M/uL (3.86-4.86)
[2022-07-16] MEDS: INSULIN -REGULAR HUMAN 50 UNIT/0.5 ML ML SQ SCH ×4 (07:19→19:53)
[2022-07-16] MEDS: LEFLUNOMIDE 20 MG PO SCH (07:21)
[2022-07-16] MEDS: CINACALCET HCL 60 MG PO SCH (07:21)
[2022-07-16] MEDS: Oxycodone HCl/Acetaminophen 1 TAB TAB PO PRN ×3 (08:24→22:02)
[2022-07-16] MEDS: LIDOCAINE 4% PATCH TOP SCH (08:46)
[2022-07-16] MEDS: LOSARTAN POTASSIUM 50 MG TABLET PO SCH (08:47)
[2022-07-16] MEDS: methocarbamoL 500 MG TAB PO SCH ×3 (08:47→19:55)
[2022-07-16] MEDS: allopurinoL 100 MG TAB PO SCH (08:47)
[2022-07-16] MEDS: APIXABAN 2.5 MG TABLET PO SCH ×2 (08:47→19:54)
[2022-07-16] MEDS: HYDRALAZINE HCL 25 MG TABLET PO SCH ×3 (08:47→19:55)
[2022-07-16] MEDS: ASCORBIC ACID 500 MG TABLET PO SCH (08:48)
[2022-07-16] MEDS: SEVELAMER CARBONATE 800 MG TABLET PO SCH ×3 (08:48→17:31)
[2022-07-16] MEDS: DULOXETINE 30 MG CAP PO SCH (08:48)
[2022-07-16] MEDS: ASPIRIN EC 81 MG TAB PO SCH (08:48)
[2022-07-16] MEDS: LORATADINE 10 MG TAB PO SCH (08:48)
[2022-07-16] MEDS: FUROSEMIDE 40 MG TABLET PO SCH ×2 (08:48→17:31)
[2022-07-16] MEDS: GABAPENTIN 300 MG CAP PO SCH ×2 (08:48→19:55)
[2022-07-16] MEDS: ISOSORBIDE DINIT 20 MG TAB PO SCH ×3 (08:49→19:54)
[2022-07-16] MEDS: MULTIVITAMIN TAB PO SCH (08:49)
[2022-07-16] MEDS: DOCOSAHEXANOIC AC/EPA 1000 MG PO SCH (08:49)
[2022-07-16] MEDS: CYCLOSPORINE 0.05% OPTH SCH (08:50)
[2022-07-16] MEDS: FAMOTIDINE 20 MG TAB PO SCH (08:50)
[2022-07-16] MEDS: EPOETIN ALFA 10,000 UNIT/ML VIAL IV SCH (11:45)
[2022-07-16] MEDS: SOD FERRIC GLUC COMPLX/SUCROSE 125 MG in NA CHLORIDE 0.9% 100 ML IV SCH (12:00)
[2022-07-16] MEDS: INSULIN GLARGINE 100 UNIT/ML SQ SCH (19:53)
[2022-07-16] MEDS: TRELEGY ELLIPTA 100 MCG IH SCH (19:53)
[2022-07-16] MEDS: DOCUSATE NA/SENNA CONC 1 TAB PO SCH (19:54)
[2022-07-16] MEDS: ATORVASTATIN 40 MG TAB PO SCH (19:54)
[2022-07-16] MEDS: MELATONIN 3 MG TABLET PO PRN (19:54)
[2022-07-17] MEDS: carvediloL 25 MG TAB PO SCH ×2 (05:34→16:58)
[2022-07-17] MEDS: LINACLOTIDE 290 MG PO SCH ×2 (06:28→07:30)
[2022-07-17] MEDS: LIDOCAINE 4% PATCH TOP SCH (06:45)
[2022-07-17] MEDS: CYCLOSPORINE 0.05% OPTH SCH (07:30)
[2022-07-17] MEDS: INSULIN -REGULAR HUMAN 50 UNIT/0.5 ML ML SQ SCH ×4 (07:30→19:46)
[2022-07-17] MEDS: FUROSEMIDE 40 MG TABLET PO SCH ×2 (07:41→16:58)
[2022-07-17] MEDS: SEVELAMER CARBONATE 800 MG TABLET PO SCH ×3 (07:42→16:58)
[2022-07-17] MEDS: LOSARTAN POTASSIUM 50 MG TABLET PO SCH (07:42)
[2022-07-17] MEDS: DOCOSAHEXANOIC AC/EPA 1000 MG PO SCH (07:42)
[2022-07-17] MEDS: allopurinoL 100 MG TAB PO SCH (07:42)
[2022-07-17] MEDS: LORATADINE 10 MG TAB PO SCH (07:42)
[2022-07-17] MEDS: DULOXETINE 30 MG CAP PO SCH (07:43)
[2022-07-17] MEDS: ASCORBIC ACID 500 MG TABLET PO SCH (07:43)
[2022-07-17] MEDS: ASPIRIN EC 81 MG TAB PO SCH (07:43)
[2022-07-17] MEDS: GABAPENTIN 300 MG CAP PO SCH ×2 (07:43→19:45)
[2022-07-17] MEDS: MULTIVITAMIN TAB PO SCH (07:43)
[2022-07-17] MEDS: APIXABAN 2.5 MG TABLET PO SCH ×2 (07:43→19:45)
[2022-07-17] MEDS: methocarbamoL 500 MG TAB PO SCH ×3 (07:43→19:47)
[2022-07-17] MEDS: FAMOTIDINE 20 MG TAB PO SCH (07:43)
[2022-07-17] MEDS: CINACALCET 30 MG PO SCH (07:45)
[2022-07-17] MEDS: LEFLUNOMIDE 20 MG PO SCH (07:45)
[2022-07-17] MEDS ORDERED: CINACALCET HCL 30 MG TAB PO SCH (08:00)
[2022-07-17] MEDS ORDERED: CINACALCET 30 MG PO SCH (08:00)
[2022-07-17] MEDS: ISOSORBIDE DINIT 20 MG TAB PO SCH ×3 (09:39→19:46)
[2022-07-17] MEDS: HYDRALAZINE HCL 25 MG TABLET PO SCH ×3 (09:39→21:00)
[2022-07-17] MEDS: Oxycodone HCl/Acetaminophen 1 TAB TAB PO PRN (10:53)
[2022-07-17] MEDS: BISACODYL 10 MG RECTAL SUPP PR PRN (11:44)
[2022-07-17] MEDS: ATORVASTATIN 40 MG TAB PO SCH (19:46)
[2022-07-17] MEDS: DOCUSATE NA/SENNA CONC 1 TAB PO SCH (19:47)
[2022-07-17] MEDS: TRELEGY ELLIPTA 100 MCG IH SCH (19:48)
[2022-07-17] MEDS: INSULIN GLARGINE 100 UNIT/ML SQ SCH (19:51)
[2022-07-18] MEDS: carvediloL 25 MG TAB PO SCH ×2 (05:00→16:51)
[2022-07-18] MEDS: FAMOTIDINE 20 MG TAB PO SCH (05:07)
[2022-07-18] MEDS: Oxycodone HCl/Acetaminophen 1 TAB TAB PO PRN ×3 (05:46→13:16)
[2022-07-18] MEDS: INSULIN -REGULAR HUMAN 50 UNIT/0.5 ML ML SQ SCH ×4 (07:26→21:05)
[2022-07-18] MEDS: LINACLOTIDE 290 MG PO SCH (07:35)
[2022-07-18] MEDS: CYCLOSPORINE 0.05% OPTH SCH (07:35)
[2022-07-18] MEDS: LEFLUNOMIDE 20 MG PO SCH (07:36)
[2022-07-18] MEDS: LOSARTAN POTASSIUM 50 MG TABLET PO SCH (07:36)
[2022-07-18] MEDS: CINACALCET 30 MG PO SCH (07:36)
[2022-07-18] MEDS: DOCOSAHEXANOIC AC/EPA 1000 MG PO SCH (07:36)
[2022-07-18] MEDS: DULOXETINE 30 MG CAP PO SCH (07:36)
[2022-07-18] MEDS: APIXABAN 2.5 MG TABLET PO SCH ×2 (07:37→19:43)
[2022-07-18] MEDS: allopurinoL 100 MG TAB PO SCH (07:37)
[2022-07-18] MEDS: ASCORBIC ACID 500 MG TABLET PO SCH (07:37)
[2022-07-18] MEDS: GABAPENTIN 300 MG CAP PO SCH ×2 (07:37→19:44)
[2022-07-18] MEDS: methocarbamoL 500 MG TAB PO SCH (07:37)
[2022-07-18] MEDS: ASPIRIN EC 81 MG TAB PO SCH (07:37)
[2022-07-18] MEDS: SEVELAMER CARBONATE 800 MG TABLET PO SCH ×3 (07:37→16:51)
[2022-07-18] MEDS: MULTIVITAMIN TAB PO SCH (07:38)
[2022-07-18] MEDS: LORATADINE 10 MG TAB PO SCH (07:38)
[2022-07-18] MEDS: FUROSEMIDE 40 MG TABLET PO SCH ×2 (07:38→16:50)
--- NOTE | 2022-07-18 09:13 | P.PN ---
Date of Service: 07/18/22 Vital Signs Temp Pulse Resp BP Pulse Ox 97.4 F 73 18 138/63 95 07/18/22 07:16 07/18/22 07:38 07/18/22 07:37 07/18/22 07:38 07/18/22 07:37 Medications Allopurinol (Allopurinol 100 Mg Tab) 100 mg PO DAILY [facility] [place] Last Admin: 07/18/22 07:37 Dose: 100 mg Apixaban (Apixaban 2.5 Mg Tablet) 2.5 mg PO BID [facility] [place] Last Admin: 07/18/22 07:37 Dose: 2.5 mg Ascorbic Acid (Ascorbic Acid 500 Mg Tablet) 500 mg PO DAILY [facility] [place] Last Admin: 07/18/22 07:37 Dose: 500 mg Aspirin (Aspirin Ec 81 Mg Tab) 81 mg PO DAILY [facility] [place] Last Admin: 07/18/22 07:37 Dose: 81 mg Atorvastatin Calcium (Atorvastatin 40 Mg Tab) 40 mg PO BEDTIME [facility] [place] Last Admin: 07/17/22 19:46 Dose: 40 mg Bisacodyl (Bisacodyl 10 Mg Rectal Supp) 10 mg [place] DAILY PRN PRN Reason: CONSTIPATION Last Admin: 07/17/22 11:44 Dose: 10 mg Carvedilol (Carvedilol 25 Mg Tab) 25 mg PO BID 6AM 6PM [facility] [place] Last Admin: 07/18/22 05:00 Dose: 25 mg Duloxetine HCl (Duloxetine 30 Mg Cap) 30 mg PO DAILY [facility] [place] Last Admin: 07/18/22 07:36 Dose: 30 mg Epoetin Kirit (Epoetin Kirit 10,000 Unit/Ml Vial) 10,000 unit SQ M,W,F [facility] [place] Ergocalciferol (Drisdol (Vitamin D=Ergocalciferol) 37952 Unit Cap) 50,000 unit PO Q7D@0900 [facility] Famotidine (Famotidine 20 Mg Tab) 20 mg PO DAILY [facility] [place]; Protocol Last Admin: 07/18/22 05:07 Dose: 20 mg Fish Oil (Docosahexanoic Ac/Epa 1000 Mg) 1,000 mg PO DAILY [facility] Last Admin: 07/18/22 07:36 Dose: 1,000 mg Furosemide (Furosemide 40 Mg Tablet) 40 mg PO BIDL [facility] Last Admin: 07/18/22 07:38 Dose: 40 mg Gabapentin (Gabapentin 300 Mg Cap) 300 mg PO BID [facility] [place] Last Admin: 07/18/22 07:37 Dose: 300 mg Glucagon (Glucagon 1 Mg/Vial) 1 mg IM 1X PRN; Protocol PRN Reason: HYPOGLYCEMIA Home Med (Restasis0.05%) 2 drops OPTH DAILY [facility] [place] Last Admin: 07/18/22 07:35 Dose: 2 drops Home Med (Trelegy Ellipta 100mcg 62.5 25) 1 inh IH BEDTIME [facility] Last Admin: 07/17/22 19:48 Dose: 1 inh Home Med (Leflunomide ) 20 mg PO DAILY [facility] Last Admin: 07/18/22 07:36 Dose: 20 mg Home Med (Linaclotide 290mg) 1 cap PO DAILYAC [facility] [place] Last Admin: 07/18/22 07:35 Dose: 1 cap Home Med (Proair Hfa (Albuterol) 90 Mcg/Actuation) 1 ea IH Q6H PRN PRN Reason: SHORTNESS OF BREATH Home Med (Orencia 750 Mg) 750 mg IV SEECOM [facility] Home Med (Home Med 1 Ea Unk (Cinacalcet 30 Mg Tab)) 1 ea PO DAILY [facility] [place] Last Admin: 07/18/22 07:36 Dose: 1 ea Hydralazine HCl (Hydralazine Hcl 25 Mg Tablet) 25 mg PO TID [facility] [place] Last Admin: 07/17/22 21:00 Dose: 25 mg Dextrose (Dextrose 10% Water Iv Soln.) 125 mls @ 0 mls/hr IV PRN PRN; Protocol PRN Reason: HYPOGLYCEMIA Ferric Sodium Gluconate Complex 125 mg/ Sodium Chloride 110 mls @ 100 mls/hr IV EVERY HD [facility] Stop: 07/18/22 17:05 Last Admin: 07/16/22 12:00 Dose: 110 mls Insulin Glargine (Insulin Glargine 100 Unit/Ml) 23 unit SQ BEDTIME [facility] [place] Last Admin: 07/17/22 19:51 Dose: 23 unit Insulin Human Regular (Insulin -Regular Human 50 Unit/0.5 Ml Ml) 0 unit SQ ACHS [facility] [place]; Protocol Last Admin: 07/18/22 07:26 Dose: Not Given Isosorbide Dinitrate (Isosorbide Dinit 20 Mg Tab) 20 mg PO TID [facility] [place] Last Admin: 07/17/22 19:46 Dose: 20 mg Lidocaine (Lidocaine 4% Patch) 2 patch TOP DAILY [facility] [place] Last Admin: 07/17/22 06:45 Dose: 2 patch Loratadine (Loratadine 10 Mg Tab) 10 mg PO DAILY [facility] [place] Last Admin: 07/18/22 07:38 Dose: 10 mg Losartan Potassium (Losartan Potassium 50 Mg Tablet) 100 mg PO DAILY [facility] [place] Last Admin: 07/18/22 07:36 Dose: 100 mg Melatonin (Melatonin 3 Mg Tablet) 3 mg PO BEDTIME PRN PRN PRN Reason: INSOMNIA Last Admin: 07/16/22 19:54 Dose: 3 mg Oxycodone/Acetaminophen (Oxycodone Hcl/Acetaminophen 1 Tab Tab) 1 tab PO Q4H PRN PRN Reason: Pain scale 8-10 (Severe) Last Admin: 07/18/22 05:46 Dose: 1 tab Senna/Docusate Sodium (Docusate Na/Senna Conc 1 Tab) 2 tab PO BEDTIME [facility] [place] Last Admin: 07/17/22 19:47 Dose: 2 tab Sevelamer Carbonate (Sevelamer Carbonate 800 Mg Tablet) 800 mg PO TIDWM [facility] [place] Last Admin: 07/18/22 07:37 Dose: 800 mg Lab Results (last 24 hrs) 07/18/22 07:01: POC Glucose 82 07/17/22 19:44: POC Glucose 190 H 07/17/22 16:51: POC Glucose 189 H 07/17/22 11:33: POC Glucose 161 H Microbiology Results 07/13/22 13:55 Clean Catch Urine [place] Count - Final <10,000 CFU/ML. 07/13/22 13:55 Clean Catch Urine - Final MIXED GREER. Assessment/ Plan: Nephrology Back pain No dyspnea No chest pain No acute events overnight Vitals, medications, blood work and imaging reviewed in the chart. NAD. Obese. NCAT. MMM. CTA. RRR. Abd ND. No C/C/E. No rash. AAO. Normal speech. ESRD -HD TTS HTN with CKD/ CHF -Continue Losartan -Continue Coreg Diastolic CHF, chronic -HD with UF -Daily weight DM II with CKD -Increase Lantus -RISS Moderate to severe protein malnutrition Decreased functional ability/ Back pain -Start Nepro TID -Continue PT Anemia in CKD Iron Deficiency -Continue Retacrit -Agree with IV iron CKD MBD -Continue Renvela -Start Ergo qWk
[2022-07-18] MEDS ORDERED: DRISDOL (VITAMIN D=ERGOCALCIFEROL) 50000 UNIT CAP PO SCH (09:30)
[2022-07-18] MEDS: HYDRALAZINE HCL 25 MG TABLET PO SCH ×3 (10:12→19:43)
[2022-07-18] MEDS: ISOSORBIDE DINIT 20 MG TAB PO SCH ×3 (10:12→19:44)
[2022-07-18] MEDS: LIDOCAINE 4% PATCH TOP SCH (11:44)
[2022-07-18] MEDS ORDERED: ABATACEPT SQ ONE (14:02)
[2022-07-18] MEDS: NEPRO SHAKE 237 ML CAN PO SCH ×2 (14:08→19:44)
[2022-07-18] MEDS ORDERED: ORENCIA 750 MG SQ SCH (14:19)
[2022-07-18] MEDS ORDERED: ABATACEPT 250 MG SQ ONE (14:45)
[2022-07-18] MEDS: DOCUSATE NA/SENNA CONC 1 TAB PO SCH (19:43)
[2022-07-18] MEDS: ATORVASTATIN 40 MG TAB PO SCH (19:43)
[2022-07-18] MEDS: TRELEGY ELLIPTA 100 MCG IH SCH (19:43)
[2022-07-18] MEDS: EPOETIN ALFA 10,000 UNIT/ML VIAL SQ SCH (19:44)
[2022-07-18] MEDS ORDERED: INSULIN GLARGINE 100 UNIT/ML SQ SCH (21:00)
--- NOTE | 2022-07-18 23:02 | PN ---
Date of Progress Note: 07/18/2022 This is a zfcz-sd-[id number] visit with the patient. Subjective: Ms. Ziegler is doing well. She reports less back pain of her surgical site. No signific ant muscle spasms. She is otherwise doing well. She is doing well at night. Review of Systems: She is on dialysis and reports no issues as she goes through her dialysis. No fevers or chills. No myalgias, arthralgias. No significant rash, headache, or weight change. She did report a slight kunal mor, which is likely to be asterixis. The tremor is as she is coming close in to eat using the hand utensils or reaching far out. It is mild. Physical Examination: Vital Signs: Blood pressure 138/63, pulse 73, respiratory rate 18, temperature 97.4, oxygen saturati on 95%. Weight 190 pounds, height 5 feet 6 inches, BMI 30. General: Toney is resting well. Her surgical site in the back shows no loss of integrity. She has good hemostasis. She does have a mild arthritic changes actually noted in the hands. Otherwise, no other issues. She does have comorbid dyslipidemia and has no issues of muscle pain or myalgias related to that. He r blood pressures are fluctuating with Coreg providing fair control. She has high blood pressure. S ystolic blood pressure of 150, and her creatinine which has been elevated due to her end-stage renal disease is managed by the Renal Service on the . She had a number of 6.1. Laboratory Studies: Earlier today, blood sugars ranged from 82-201. X-ray Imaging: No new x-ray imaging. Current Medications: Aspirin 81 mg daily. Lipitor 40 mg at bedtime. Coreg 25 mg twice daily. Dulo xetine 30 mg daily, 3 times daily. Epoetin aristides 10,000 units Monday, Monday, Monday di alysis. Drisdol 50,000 units/vitamin D weekly. Pepcid 20 mg daily. Fish oil 1000 mg daily. Lasix 40 mg twice daily. Gabapentin 300 mg twice daily. Glucagon as needed. Isordil 20 mg 3 times daily. Lidocaine patch 2 patches topically daily. Loratadine 10 mg daily. Cozaar 100 mg daily. Melatoni n 3 mg daily. Renvela 800 mg 3 times daily. Folic acid 1 mg daily. Senakot-S 2 at bedtime. Percoc et 5/325 every 4 hours as needed. Current Functional Status: Ms. Ziegler is able to do spine stabilizing exercises while sitting uprigh t in a wheelchair with supervision. She self propels a wheelchair 150 feet with bilateral upper extr emities taking less breaks and she did so independently. Functional transfers from supine to out of bed and supine to stand done with rolling walker on contac t guard assistance. Progress towards rehabilitation goals: She is making fair progress overall to becoming modified inde pendent to independent with her ADLs and mobilization, as well as self-care. Assessment And Plan: She has lumbar myelopathy status post decompression. She is making good progre ss with physical and occupational therapy, and pain is managed. She has no issues of bowel or bladde r retention, which gave her no evidence of an infection related to the surgery. She does have some e vidence of malnutrition and that is being addressed with protein supplementation. Her pain is adequa tely addressed. Hypertension, which is at this point being controlled with multiple medications and is followed her s hift. Dyslipidemia is addressed with Lipitor. Her risk of deep vein thrombosis is addressed with th leonidas Perezquernesto. Her malnutrition is addressed with Nepro shatiara. Her end-stage renal disease, addressed with dialysis 3 times weekly and in significant anemia related to renal failures addressed with Procrit. Her hemoglobin has been 7.4 on the 22 and 7.6, and managed again with Procrit and iro n supplementation as per the Renal team. Comorbid conditions that continue to impact her progress. She has end-stage renal disease on dialysi s, which does take her away 3 days weekly for therapy and which can impact the rate at which she prog resses. She has significant renal dysfunction which does not allow for a very good hemoglobin, hematocrit, an d that can cause weakness and difficulty with progressing, but she is still doing very well. She has pain at the surgical site and significant cervical cord myelopathy which can impair her sim ce, coordination, gait, and bladder or bowel function, and those are being addressed. She also menti oned some tremors which are not significant and not impacting her ability to perform her therapeutic exercises. LB/MODL Voice ID: [id number] Report ID: [id number]
[2022-07-19 04:40] LABS: Absolute Lymphocytes (CBC) 2.1 K/uL (0.7-4.9); Hematocrit 21.5 % (36.0-45.0); Lymphocytes % 17.8 % (15.3-44.8); MCV 95.5 fL (80-100); RBC Red Blood Cell Count 2.25 M/uL (3.86-4.86)
[2022-07-19] MEDS: carvediloL 25 MG TAB PO SCH ×2 (05:06→17:43)
[2022-07-19 05:11] LABS: AST/SGOT 17 U/L (15-37); Alkaline Phosphatase 264 U/L (45-117); BUN Blood Urea Nitrogen 58 mg/dL (7-18); Bicarbonate 29 mmol/L (21-32); Bilirubin Total 0.3 mg/dL (0.2-1.0); Glomerular Filtration Rate 8 ml/min (=/>90); Glucose Level 223 mg/dL (74-106); NT PRO-BNP 16419 pg/mL (<125); Phosphorus 3.1 mg/dL (2.5-4.9); Potassium 4.7 mmol/L (3.5-5.1); Protein, Total 5.6 g/dL (6.4-8.2); Sodium Level 133 mmol/L (136-145)
[2022-07-19 05:12] LABS: ALT/SGPT < 10 U/L (12-78)
[2022-07-19] MEDS: INSULIN -REGULAR HUMAN 50 UNIT/0.5 ML ML SQ SCH ×4 (07:30→20:00)
[2022-07-19] MEDS: CYCLOSPORINE 0.05% OPTH SCH ×2 (07:34→20:15)
[2022-07-19] MEDS: LINACLOTIDE 290 MG PO SCH (07:35)
[2022-07-19] MEDS: LIDOCAINE 4% PATCH TOP SCH (07:36)
[2022-07-19] MEDS: MULTIVITAMINS,THERAPEUT 1 TAB PO SCH (07:50)
[2022-07-19] MEDS: DOCOSAHEXANOIC AC/EPA 1000 MG PO SCH (07:50)
[2022-07-19] MEDS: APIXABAN 2.5 MG TABLET PO SCH ×2 (07:50→20:01)
[2022-07-19] MEDS: ASCORBIC ACID 500 MG TABLET PO SCH (07:50)
[2022-07-19] MEDS: SEVELAMER CARBONATE 800 MG TABLET PO SCH ×4 (07:50→17:27)
[2022-07-19] MEDS: LORATADINE 10 MG TAB PO SCH (07:51)
[2022-07-19] MEDS: allopurinoL 100 MG TAB PO SCH (07:51)
[2022-07-19] MEDS: FUROSEMIDE 40 MG TABLET PO SCH ×2 (07:51→17:00)
[2022-07-19] MEDS: GABAPENTIN 300 MG CAP PO SCH ×2 (07:51→20:01)
[2022-07-19] MEDS: DULOXETINE 30 MG CAP PO SCH (07:51)
[2022-07-19] MEDS: ASPIRIN EC 81 MG TAB PO SCH (07:51)
[2022-07-19] MEDS: CINACALCET 30 MG PO SCH (07:52)
[2022-07-19] MEDS: LEFLUNOMIDE 20 MG PO SCH (07:53)
[2022-07-19] MEDS: LOSARTAN POTASSIUM 50 MG TABLET PO SCH (07:54)
[2022-07-19] MEDS: FAMOTIDINE 20 MG TAB PO SCH (07:56)
[2022-07-19] MEDS: NEPRO SHAKE 237 ML CAN PO SCH ×3 (07:57→20:01)
[2022-07-19] MEDS: ISOSORBIDE DINIT 20 MG TAB PO SCH ×3 (07:57→20:01)
[2022-07-19] MEDS: HYDRALAZINE HCL 25 MG TABLET PO SCH ×3 (07:57→20:01)
[2022-07-19] MEDS ORDERED: EPOETIN ALFA-EPBX 10,000 UNIT/ML VIAL SQ ONE (08:05)
[2022-07-19] MEDS: Oxycodone HCl/Acetaminophen 1 TAB TAB PO PRN ×4 (08:14→20:01)
[2022-07-19] MEDS: ALBUMIN HUMAN 25% 100 ML IV ONE ×2 (14:04→14:55)
[2022-07-19] MEDS: SOD FERRIC GLUC COMPLX/SUCROSE 125 MG in NA CHLORIDE 0.9% 100 ML IV SCH (15:30)
--- NOTE | 2022-07-19 17:33 | P.PN ---
Date of Service: 07/19/22 Vital Signs Temp Pulse Resp BP Pulse Ox 98.2 F 83 18 118/57 L 92 07/19/22 07:29 07/19/22 07:51 07/19/22 17:08 07/19/22 07:51 07/19/22 17:08 Medications Allopurinol (Allopurinol 100 Mg Tab) 100 mg PO DAILY [facility] Last Admin: 07/19/22 07:51 Dose: 100 mg Apixaban (Apixaban 2.5 Mg Tablet) 2.5 mg PO BID [facility] Last Admin: 07/19/22 07:50 Dose: 2.5 mg Ascorbic Acid (Ascorbic Acid 500 Mg Tablet) 500 mg PO DAILY [facility] Last Admin: 07/19/22 07:50 Dose: 500 mg Aspirin (Aspirin Ec 81 Mg Tab) 81 mg PO DAILY [facility] Last Admin: 07/19/22 07:51 Dose: 81 mg Atorvastatin Calcium (Atorvastatin 40 Mg Tab) 40 mg PO BEDTIME [facility] Last Admin: 07/18/22 19:43 Dose: 40 mg Bisacodyl (Bisacodyl 10 Mg Rectal Supp) 10 mg WA DAILY PRN PRN Reason: CONSTIPATION Last Admin: 07/17/22 11:44 Dose: 10 mg Carvedilol (Carvedilol 25 Mg Tab) 25 mg PO BID 6AM 6PM [facility] Last Admin: 07/19/22 05:06 Dose: 25 mg Duloxetine HCl (Duloxetine 30 Mg Cap) 30 mg PO DAILY [facility] Last Admin: 07/19/22 07:51 Dose: 30 mg Enteral Nutritional Formula (Nepro Shake 237 Ml Can) 237 ml PO TID [facility] Last Admin: 07/19/22 13:31 Dose: 237 ml Epoetin Kirit (Epoetin Kirit 10,000 Unit/Ml Vial) 10,000 unit SQ M,W,F [facility] Last Admin: 07/18/22 19:44 Dose: 10,000 unit Ergocalciferol (Drisdol (Vitamin D=Ergocalciferol) 44983 Unit Cap) 50,000 unit PO Q7D@0900 [facility] Last Admin: 07/18/22 11:45 Dose: 50,000 unit Famotidine (Famotidine 20 Mg Tab) 20 mg PO DAILY [facility]; Protocol Last Admin: 07/19/22 07:56 Dose: 20 mg Fish Oil (Docosahexanoic Ac/Epa 1000 Mg) 1,000 mg PO DAILY [facility] Last Admin: 07/19/22 07:50 Dose: 1,000 mg Furosemide (Furosemide 40 Mg Tablet) 40 mg PO BIDL [facility] Last Admin: 07/19/22 17:00 Dose: Not Given Gabapentin (Gabapentin 300 Mg Cap) 300 mg PO BID [facility] Last Admin: 07/19/22 07:51 Dose: 300 mg Glucagon (Glucagon 1 Mg/Vial) 1 mg IM 1X PRN; Protocol PRN Reason: HYPOGLYCEMIA Heparin Sodium (Porcine) (Heparin 1,000 Unit/Ml Vial) 2,000 unit IV EVERY HD PRN PRN Reason: Prevent Clottin Last Admin: 07/19/22 14:50 Dose: 2,000 unit Home Med (Restasis0.05%) 2 drops OPTH DAILY [facility] Last Admin: 07/19/22 07:34 Dose: 2 drops Home Med (Trelegy Ellipta 100mcg 62.5 25) 1 inh IH BEDTIME [facility] Last Admin: 07/18/22 19:43 Dose: 1 inh Home Med (Leflunomide ) 20 mg PO DAILY [facility] Last Admin: 07/19/22 07:53 Dose: 20 mg Home Med (Linaclotide 290mg) 1 cap PO DAILYAC [facility] Last Admin: 07/19/22 07:35 Dose: 1 cap Home Med (Proair Hfa (Albuterol) 90 Mcg/Actuation) 1 ea IH Q6H PRN PRN Reason: SHORTNESS OF BREATH Home Med (Home Med 1 Ea Unk (Cinacalcet 30 Mg Tab)) 1 ea PO DAILY [facility] Last Admin: 07/19/22 07:52 Dose: 1 ea Home Med (Orencia 750 Mg) 750 mg SQ SEECOM [facility] Hydralazine HCl (Hydralazine Hcl 25 Mg Tablet) 25 mg PO TID [facility] Last Admin: 07/19/22 13:32 Dose: Not Given Dextrose (Dextrose 10% Water Iv Soln.) 125 mls @ 0 mls/hr IV PRN PRN; Protocol PRN Reason: HYPOGLYCEMIA Ferric Sodium Gluconate Complex 125 mg/ Sodium Chloride 110 mls @ 100 mls/hr IV EVERY HD [facility] Stop: 07/25/22 17:05 Last Admin: 07/19/22 15:30 Dose: 110 mls Insulin Glargine (Insulin Glargine 100 Unit/Ml) 26 unit SQ BEDTIME [facility] Last Admin: 07/18/22 21:04 Dose: 26 unit Insulin Human Regular (Insulin -Regular Human 50 Unit/0.5 Ml Ml) 0 unit SQ [facility]; Protocol Last Admin: 07/19/22 16:30 Dose: Not Given Isosorbide Dinitrate (Isosorbide Dinit 20 Mg Tab) 20 mg PO TID [facility] Last Admin: 07/19/22 13:32 Dose: Not Given Lidocaine (Lidocaine 4% Patch) 2 patch TOP DAILY [facility] Last Admin: 07/19/22 07:36 Dose: 2 patch Loratadine (Loratadine 10 Mg Tab) 10 mg PO DAILY [facility] Last Admin: 07/19/22 07:51 Dose: 10 mg Losartan Potassium (Losartan Potassium 50 Mg Tablet) 100 mg PO DAILY [facility] Last Admin: 07/19/22 07:54 Dose: Not Given Melatonin (Melatonin 3 Mg Tablet) 3 mg PO BEDTIME PRN PRN PRN Reason: INSOMNIA Last Admin: 07/16/22 19:54 Dose: 3 mg Oxycodone/Acetaminophen (Oxycodone Hcl/Acetaminophen 1 Tab Tab) 1 tab PO Q4H PRN PRN Reason: Pain scale 8-10 (Severe) Last Admin: 07/19/22 16:20 Dose: 1 tab Senna/Docusate Sodium (Docusate Na/Senna Conc 1 Tab) 2 tab PO BEDTIME [facility] Last Admin: 07/18/22 19:43 Dose: 2 tab Sevelamer Carbonate (Sevelamer Carbonate 800 Mg Tablet) 800 mg PO TIDWM [facility] Last Admin: 07/19/22 17:27 Dose: 800 mg Tramadol HCl (Tramadol Hcl 50 Mg Tab) 50 mg PO Q4H PRN PRN Reason: Pain scale 5-7 (Moderate) Vitamin B Complex/Vit C/Folic Acid (Multivitamins,Therapeut 1 Tab) 1 tab PO DAILY [facility] Last Admin: 07/19/22 07:50 Dose: 1 tab Lab Results (last 24 hrs) 07/19/22 16:27: POC Glucose 171 H 07/19/22 11:53: POC Glucose 250 H 07/19/22 07:17: POC Glucose 179 H 07/19/22 04:01: Hemoglobin A1c 6.0 07/19/22 04:01: Sodium 133 L, Potassium 4.7, Chloride 97 L, Carbon Dioxide 29, Anion Gap 11.7, BUN 58 H, Creatinine 5.77 H*, Est GFR (CKD-EPI) 8 L, Glucose 223 H, Calcium 9.5, Phosphorus 3.1, Total Bilirubin 0.3, AST 17, ALT < 10 L, Alkaline Phosphatase 264 H, NT-Pro-B Natriuret Pep 63474 H, Serum Total Protein 5.6 L, Albumin 2.0 L, Globulin 3.6 H, Albumin/Globulin Ratio 0.6 L 07/19/22 04:01: WBC 11.60 H, RBC 2.25 L, Hgb 7.0 L, Hct 21.5 L, MCV 95.5, MCH 31.2, MCHC 32.7, RDW 17.7 H, Plt Count 588 H, MPV 8.0, Neutrophils % 63.6, Lymphocytes % 17.8, Monocytes % 7.7, Eosinophils % 10.1 H, Basophils % 0.8, Absolute Neutrophils 7.4, Absolute Lymphocytes 2.1, Absolute Monocytes 0.9, Absolute Eosinophils 1.2 H, Absolute Basophils 0.1 07/18/22 19:54: POC Glucose 222 H Microbiology Results 07/13/22 13:55 Clean Catch Urine [place] Count - Final <10,000 CFU/ML. 07/13/22 13:55 Clean Catch Urine - Final MIXED GREER. Assessment/ Plan: Nephrology Back pain No dyspnea No chest pain No acute events overnight Vitals, medications, blood work and imaging reviewed in the chart. NAD. Obese. NCAT. MMM. CTA. RRR. Abd ND. No C/C/E. No rash. AAO. Normal speech. ESRD -HD TTS HTN with CKD/ CHF -Continue Losartan -Continue Coreg Diastolic CHF, chronic -HD with UF -Daily weight DM II with CKD -Continue Lantus -RISS Moderate to severe protein malnutrition Decreased functional ability/ Back pain -Continue Nepro TID -Continue MVI -Continue PT Anemia in CKD Iron Deficiency -Continue Retacrit; Extra Retacrit dose today -Continue IV iron -May need to transfuse for Hgb <7 CKD MBD -Continue Renvela -Continue Ergo qWk
[2022-07-19] MEDS: INSULIN GLARGINE 100 UNIT/ML SQ SCH (20:00)
[2022-07-19] MEDS: DOCUSATE NA/SENNA CONC 1 TAB PO SCH (20:01)
[2022-07-19] MEDS: TRELEGY ELLIPTA 100 MCG IH SCH (20:01)
[2022-07-19] MEDS: ATORVASTATIN 40 MG TAB PO SCH (20:01)
[2022-07-20] MEDS: carvediloL 25 MG TAB PO SCH ×2 (05:17→17:05)
[2022-07-20] MEDS: LINACLOTIDE 290 MG PO SCH ×2 (06:30→07:17)
[2022-07-20] MEDS: INSULIN -REGULAR HUMAN 50 UNIT/0.5 ML ML SQ SCH ×4 (07:10→20:44)
[2022-07-20] MEDS: CYCLOSPORINE 0.05% OPTH SCH ×2 (08:00→20:00)
[2022-07-20] MEDS: DULOXETINE 30 MG CAP PO SCH (08:07)
[2022-07-20] MEDS: APIXABAN 2.5 MG TABLET PO SCH ×2 (08:07→20:45)
[2022-07-20] MEDS: LIDOCAINE 4% PATCH TOP SCH (08:07)
[2022-07-20] MEDS: allopurinoL 100 MG TAB PO SCH (08:07)
[2022-07-20] MEDS: GABAPENTIN 300 MG CAP PO SCH ×2 (08:07→20:44)
[2022-07-20] MEDS: ISOSORBIDE DINIT 20 MG TAB PO SCH ×3 (08:07→20:45)
[2022-07-20] MEDS: HYDRALAZINE HCL 25 MG TABLET PO SCH ×3 (08:07→20:44)
[2022-07-20] MEDS: FUROSEMIDE 40 MG TABLET PO SCH ×2 (08:08→17:04)
[2022-07-20] MEDS: SEVELAMER CARBONATE 800 MG TABLET PO SCH ×3 (08:08→17:04)
[2022-07-20] MEDS: ASCORBIC ACID 500 MG TABLET PO SCH (08:08)
[2022-07-20] MEDS: MULTIVITAMINS,THERAPEUT 1 TAB PO SCH (08:08)
[2022-07-20] MEDS: DOCOSAHEXANOIC AC/EPA 1000 MG PO SCH (08:08)
[2022-07-20] MEDS: FAMOTIDINE 20 MG TAB PO SCH (08:09)
[2022-07-20] MEDS: Oxycodone HCl/Acetaminophen 1 TAB TAB PO PRN ×3 (08:50→17:05)
[2022-07-20] MEDS: LORATADINE 10 MG TAB PO SCH (08:52)
[2022-07-20] MEDS: ASPIRIN EC 81 MG TAB PO SCH (08:54)
[2022-07-20] MEDS: CINACALCET 30 MG PO SCH (09:11)
[2022-07-20] MEDS: LEFLUNOMIDE 20 MG PO SCH (09:13)
[2022-07-20] MEDS: NEPRO SHAKE 237 ML CAN PO SCH ×3 (09:15→20:45)
[2022-07-20] MEDS: LOSARTAN POTASSIUM 50 MG TABLET PO SCH (10:17)
--- NOTE | 2022-07-20 10:50 | PN ---
A jsgh-ar-qnps visit with the patient, Wendy Ziegler. Subjective: Ms. Ziegler is in a wheelchair, going to the gym to do therapy. She reports ssuu-fh-vapx rate back pain, but that has improved. She does have some mild muscle spasms. She had no complaints overnight in terms of difficulty sleeping and has no issues and she goes to her hemodialysis. Review of Systems: As noted, some back pain with muscle spasms, some mild tremors in the extremities, especially in the hands when she holds them up, but that has not worsened. She otherwise, has no fevers or chills, lorenzo sea, vomiting, myalgias, arthralgias, headache, weight change, or mood issues. Physical Examination: Vital Signs: Blood pressure 118/57, pulse 83, respiratory rate 18, temperature 98.2, oxygen saturati on 92%. General: Ms. Zielger is doing well. Back: She has good hemostasis of the back surgery site. Skin: She has some skin discoloration that is diffusely throughout, that has been stable since her a dmission. No evidence of jaundice. She otherwise, has no new findings in terms of her examination. Laboratory Studies: White blood cell count is 11.6 on the 25th and the 2nd is 11.5 with normal diffe rential. Hemoglobin is 7.0, down from 7.4 on the , which is down from 7.6. Renal Service is giv ing her iron transfusions and Procrit. Her creatinine today 5.77, sodium 133, chloride 97, glucose r anged from 171 to 250 and hemoglobin A1c is 6. AST 17, ALT 10. Her albumin is 2.0. Current Functional Status: Apparently, she performed stand and pivot transfers with maximum to moder ate assistance due to back pain. She did repeat tiy-cb-zyita with moderate to maximum assistance. S he did require assistance to pull up and down her underwear. She self propelled a wheelchair 200 fee t and 100 feet using bilateral upper extremities with standby assistance. She did take rest breaks d ue to pain. She ambulated 15 feet and 8 feet with maximum assistance with rolling walker, limited ag ain by pain. Progress toward rehabilitation goals: She is making fair overall progress with physical and occupati onal therapy. She has somewhat limited by back pain with muscle spasms. Otherwise, her end-stage re nal disease is not necessarily a limiting factor, but she still has to do 3 days a week of dialysis a nd that is worked around in terms of her therapy. Assessment: Ms. Ziegler is a 67-year-old patient with lumbar myelopathy, status post decompression. She is making good and at times fair progress, although limited by pain in terms of her physical and occupational therapy. She has comorbid end-stage renal disease, on hemodialysis. She has electrolyt e derangements addressed by the Renal Service. She has anemia, hemoglobin of 7, managed with iron an d Procrit. She has malnutrition with low albumin addressed by protein supplementation. Otherwise, s he will continue with aspirin 81 mg daily, Eliquis 2.5 mg daily, Coreg, as well as duloxetine, Lasix, gabapentin, Claritin, Cozaar, Renvela, Ultram, and Nephro-Ronan. Comorbidities that are continuing to intact rehabilitation process include her end-stage renal diseas e and pain related to her back surgery. GUNJAN/TONY Voice ID: [id number] Report ID: [id number]
[2022-07-20] MEDS: EPOETIN ALFA 10,000 UNIT/ML VIAL SQ SCH (16:21)
[2022-07-20] MEDS: INSULIN GLARGINE 100 UNIT/ML SQ SCH (20:43)
[2022-07-20] MEDS: DOCUSATE NA/SENNA CONC 1 TAB PO SCH ×2 (20:44→21:00)
[2022-07-20] MEDS: ATORVASTATIN 40 MG TAB PO SCH (20:44)
[2022-07-20] MEDS: TRELEGY ELLIPTA 100 MCG IH SCH (20:44)
--- NOTE | 2022-07-20 22:11 | PN ---
Date of Progress Note: 07/20/2022 This is a dlhz-ec-unwn visit with the patient, Wendy Ziegler. Subjective: Ms. Ziegler is in bed, doing bed mobility exercises. She reports moderate pain in the ba ck and some spasms, but that is less than yesterday. She denies any other issues. Review of Systems: No fevers or chills. Myalgias as noted, back pain as noted. Some mild discomfort in the hands and f eet. Otherwise, no other positives on systems review. Physical Examination: Vital Signs: Blood pressure 146/67, pulse 80, respiratory rate 18, temperature 97.8, oxygen saturati on 93%. Back: Area of her surgery actually shows good hemostasis. She does not have any obvious drainage th ere. No focal weakness, just diffuse lower extremity weakness, which is improving. No significant s ensory deficits, aside from a stocking-glove loss. Laboratory Studies: Blood sugar range 156 to 200. Diagnostic Studies: X-ray imaging, no new x-rays. Medications: Eliquis 2.5 b.i.d. Allopurinol 100 mg daily. Aspirin 81 mg daily. Lipitor 40 mg at b edtime. Coreg 25 mg twice daily. Dulcolax 10 mg suppository as needed for constipation. Cymbalta 3 0 mg daily. Pepcid 20 mg daily. She is on ferric sodium gluconate every hemodialysis 125 mg. Fish oil 1000 mg daily. Lasix 40 mg twice daily. Gabapentin 300 mg twice daily. Subcutaneous heparin wi th dialysis 2000 units. Insulin glargine 20 units at bedtime. Apresoline 25 mg 3 times daily. Isor dil 20 mg 3 times daily. 4% lidocaine patch to the back daily. Cozaar 100 mg daily. Magnesium oxid e 400 mg daily. Percocet 5/325 one every 4 hours as needed. Senakot-S 2 at bedtime. Renvela 800 mg 3 times daily. Ultram as needed. Nephro-Ronan 1 tablet daily. Current Functional Status: Currently Ms. Ziegler was able to perform for gait training, ambulating 69 feet twice with minimum to moderate assistance using a rolling walker. She posterior propelled a wh eelchair at bilateral lower extremities with self-propelled wheelchair, covering 250 feet. She did m ultiple [id number]-xs-[id number] transfers with modified assistance using a rolling walker. Progress toward rehabilitation goals: She is actually making good progress towards goals of becoming modified independent to independent with her activities of daily living, transfers, and upper and lo wer body dressing, and doing household distances appropriate. Assessment And Plan: Ms. Ziegler is a 67-year-old patient who had multilevel lumbar laminectomies for cord compression and was making good progress with physical and occupational therapy. She has comor bid end-stage renal disease on hemodialysis, diabetes mellitus, hypertension, was managed by lucho rae medications daily. She does have back muscle spasms, magnesium, and muscle relaxants have been us ed along with the pain from the surgery. She is on medication for pain. Comorbids have continued to impact the rehab process, which includes her end-stage renal disease, as noted previously as she requires time for dialysis, also chronic pain in lower back. Also myelopathi c changes in the lower extremities showing chronic cord compression. GUNJAN/TONY Voice ID: [id number] Report ID: [id number]
--- NOTE | 2022-07-20 22:57 | P.PN ---
Nephrology note: (S) Delayed entry note, pt seen early afternoon, pt reports some fatigue and weakness, discussed anemia and plan to transfuse if blood counts no better or any lower from the levels seen yesterday (O) vitals reviewed in the EM General: Alert, Cooperative, Mild distress HEENT: Atraumatic, Normocephalic, EOMI Respiratory: Clear to auscultation bilaterally, Normal air movement Cardiovascular: Regular rate/rhythm, Normal S1 S2 Gastrointestinal: Soft and benign, Non-distended, No tenderness Musculoskeletal: No swelling, No contractures Ext: Lt UE AVF Integumentary: No significant lesion Neurological: Normal speech, Normal tone, Normal affect Laboratory Data (last 24 hrs) 07/13/22 12:23: Sodium 132 L, Potassium 4.3, BUN 52 H, Creatinine 5.58 H*, Glucose 212 H, Phosphorus 3.8 Conclusions/Impression: 1. ESRD 2. Hypertensive CKD/ESRD 3. COPD, unspecified 4. RA 5 Degenerative disc disease 6. Secondary hyperparathyroidism due to CKD 7. Anemia 2nd to CKD, post surgical, other 8. Abnormality of albumin -Will cont iHD on a TTS basis while here at rehab -Pre-dialysis labs from yesterday reviewed, will get metab panel at least once a week -CaPhos < 55, but total corrected Ca remains elevated, did temp suspend active Vit D and checked PTH level which is < 150, will cont Sensipar at lower dose and recheck PTH levels next week, cont phos binders. Suspend nutritional Vit d as well -Will transfuse tmrw on HD if counts the same or any lower, complete IV iron series and cont Retacrit doses with HD. -Cont home BP meds, trend BP. -OT/PT per rehab program. Santos Garay MD, [facility]
[2022-07-21] MEDS: Oxycodone HCl/Acetaminophen 1 TAB TAB PO PRN ×4 (01:28→23:02)
[2022-07-21] MEDS: FAMOTIDINE 20 MG TAB PO SCH (03:18)
[2022-07-21 04:37] LABS: Absolute Lymphocytes (CBC) 1.9 K/uL (0.7-4.9); Hematocrit 21.8 % (36.0-45.0); Lymphocytes % 16.7 % (15.3-44.8); MCV 95.8 fL (80-100); RBC Red Blood Cell Count 2.28 M/uL (3.86-4.86)
[2022-07-21 05:06] LABS: Albumin 2.2 g/dL (3.4-5.0); Magnesium 2.4 mg/dL (1.8-2.4); Potassium 4.2 mmol/L (3.5-5.1); Prealbumin 14.9 mg/dL (20-40)
[2022-07-21] MEDS: carvediloL 25 MG TAB PO SCH ×2 (05:31→17:13)
[2022-07-21] MEDS: LINACLOTIDE 290 MG PO SCH (07:22)
[2022-07-21] MEDS: INSULIN -REGULAR HUMAN 50 UNIT/0.5 ML ML SQ SCH ×4 (07:27→20:31)
[2022-07-21] MEDS: LOSARTAN POTASSIUM 50 MG TABLET PO SCH (07:28)
[2022-07-21] MEDS: CYCLOSPORINE 0.05% OPTH SCH ×2 (08:00→20:30)
[2022-07-21] MEDS ORDERED: CINACALCET HCL 30 MG TAB PO SCH (08:00)
[2022-07-21] MEDS: LIDOCAINE 4% PATCH TOP SCH (08:05)
[2022-07-21] MEDS: MAGNESIUM OXIDE 400 MG TAB PO SCH (08:06)
[2022-07-21] MEDS: GABAPENTIN 300 MG CAP PO SCH ×2 (08:06→20:30)
[2022-07-21] MEDS: MULTIVITAMINS,THERAPEUT 1 TAB PO SCH (08:06)
[2022-07-21] MEDS: FUROSEMIDE 40 MG TABLET PO SCH ×2 (08:06→17:13)
[2022-07-21] MEDS: SEVELAMER CARBONATE 800 MG TABLET PO SCH ×3 (08:07→17:13)
[2022-07-21] MEDS: APIXABAN 2.5 MG TABLET PO SCH ×2 (08:07→20:30)
[2022-07-21] MEDS: allopurinoL 100 MG TAB PO SCH (08:08)
[2022-07-21] MEDS: ASPIRIN EC 81 MG TAB PO SCH (08:08)
[2022-07-21] MEDS: HYDRALAZINE HCL 25 MG TABLET PO SCH ×3 (08:11→20:30)
[2022-07-21] MEDS: ASCORBIC ACID 500 MG TABLET PO SCH (08:48)
[2022-07-21] MEDS: DULOXETINE 30 MG CAP PO SCH (08:48)
[2022-07-21] MEDS: DOCOSAHEXANOIC AC/EPA 1000 MG PO SCH (08:48)
[2022-07-21] MEDS: LORATADINE 10 MG TAB PO SCH (08:48)
[2022-07-21] MEDS: NEPRO SHAKE 237 ML CAN PO SCH (08:49)
[2022-07-21] MEDS: LEFLUNOMIDE 20 MG PO SCH (08:49)
[2022-07-21] MEDS: CINACALCET 30 MG PO SCH (08:49)
[2022-07-21] MEDS: ISOSORBIDE DINIT 20 MG TAB PO SCH ×3 (08:56→20:30)
--- NOTE | 2022-07-21 10:49 | P.PN ---
Nephrology note: (S) Pt seen resting in bed, reports back pain/spasm, nursing staff, reports PT progressing fairly with PT, pain better when ambulatory rather than stationary. (O) vitals reviewed in the EM General: Alert, Cooperative, Mild distress HEENT: Atraumatic, Normocephalic, EOMI Respiratory: Clear to auscultation bilaterally, Normal air movement Cardiovascular: Regular rate/rhythm, Normal S1 S2 Gastrointestinal: Soft and benign, Non-distended, No tenderness Musculoskeletal: No swelling, No contractures Ext: Lt UE AVF Integumentary: No significant lesion Neurological: Normal speech, Normal tone, Normal affect Laboratory Data (last 24 hrs) Reviewed in the EMR Conclusions/Impression: 1. ESRD 2. Hypertensive CKD/ESRD 3. COPD, unspecified 4. RA 5 Degenerative disc disease 6. Secondary hyperparathyroidism due to CKD 7. Anemia 2nd to CKD, post surgical, other 8. Abnormality of albumin -Will cont iHD on a TTS basis while here at rehab, see HD orders for details -Pre-dialysis labs from earlier in the week reviewed, will get metab panel at least once a week -CaPhos < 55, but total corrected Ca remains elevated, did temp suspend active Vit D and re-checked PTH level which remains < 150, will cont home med Sensipar at lower dose for now but will avoid PTH < 100, cont phos binders. Suspended temp, nutritional Vit d as well -Will transfuse 1 unit PRBC on HD today for persistent Hb < 8.0 with symptomatic anemia despite IV iron and GEMMA doses. Will add MVI -Cont home BP meds, trend BP. -Albumin quite low, added Nephro protein supplements -OT/PT per rehab program. Santos Garay MD, [facility]
[2022-07-21] MEDS: TRAMADOL HCL 50 MG TAB PO PRN (11:16)
[2022-07-21] MEDS ORDERED: CYCLOBENZAPRINE 10 MG TAB PO PRN (13:24)
[2022-07-21] MEDS: SOD FERRIC GLUC COMPLX/SUCROSE 125 MG in NA CHLORIDE 0.9% 100 ML IV SCH (13:45)
[2022-07-21 20:29] LABS: Hematocrit 25.1 % (36.0-45.0)
[2022-07-21] MEDS: ATORVASTATIN 40 MG TAB PO SCH (20:30)
[2022-07-21] MEDS: DOCUSATE NA/SENNA CONC 1 TAB PO SCH (20:30)
[2022-07-21] MEDS: INSULIN GLARGINE 100 UNIT/ML SQ SCH (20:31)
[2022-07-21] MEDS: TRELEGY ELLIPTA 100 MCG IH SCH (20:31)
--- NOTE | 2022-07-21 23:17 | PN ---
This is a rbrs-kt-cvgw visit with Ms. Wendy Ziegler. Subjective: Ms. Ziegler is resting well. She is in no significant distress. She has less muscle spa sms in the back at her surgical site. No other complaints. Review of Systems: No fevers, chills. There is myalgia and mild arthralgia. She has mild discomfort in the hands and f eet. No issues of genitourinary and gastrointestinal problems. Physical Examination: Vital Signs: Blood pressure 165/77, pulse 81, respiratory rate is 16, temperature is 98.6, saturatio n 94%. General: Ms. Ziegler is resting comfortably, in no significant distress. Back: Her surgical site in the back has good hemostasis. Extremities: Trace edema in the extremities. Laboratory Studies: White blood cell count 11.7, hemoglobin 7.2 and she is actually receiving a unit of blood with dialysis later, her platelets are 612. Creatinine today 5.05, sodium 133. Her glucos e ranged from 147-187. Prealbumin 14.9, albumin 2.2. Parathyroid hormone is 126.4. Yesterday her C OVID test, that is a repeat test was negative. Current Medications: Allopurinol 100 mg daily, Eliquis 2.5 mg twice daily, ascorbic acid 500 mg ella y, aspirin 81 mg daily, Lipitor 40 mg at bedtime, Dulcolax 10 mg per rectum as needed, Coreg 25 mg tw ice daily, Flexeril 5 mg twice daily, duloxetine 30 mg daily, Nepro 237 mL daily, epoetin 10,000 unit s Monday and Monday with dialysis, Pepcid 20 mg daily, ferrous sodium gluconate 125 mg IV every hemod ialysis, fish oil 1000 mg daily, Lasix 40 mg twice daily, gabapentin 300 mg twice daily, Isordil 20 m g 3 times daily, Claritin 10 mg daily, Cozaar 100 mg daily, lidocaine patch daily, melatonin 3 mg at bedtime, magnesium oxide 400 mg daily, Percocet 5/325 every 4 hours, Senokot-S 2 at bedtime, and Renv claudia 800 mg 3 times daily. Current Functional Status: Currently Ms. Ziegler was able to perform gait training at 69 feet, 80 fee t, 63 feet, and then 60 feet with minimum assistance to moderate assistance using a rolling walker. She self propels a wheelchair 200 feet with bilateral upper extremities with independence with rest b reaks. Bed mobility done including sit to stand and transfers with moderate assistance using a rolli ng walker. Progress towards rehabilitation goals: She is making good progress overall with her physical and occ upational therapy and our goal is to get towards independence or modified independence and she is mov ing along in terms of her transfers from bed, shower chair, upper and lower body dressing and mobiliz ing household distances; both with walker and wheelchair. Assessment: Ms. Ziegler is a 67-year-old patient with thoracic compression fracture status post surgi mayo repair who is making hslm-ga-qfzs progress overall with physical and occupational therapy. She d oes have limitations of myelopathy from the thoracic cord compression and she is improving and her ab ility to use the arms and legs are improving. She does have some increased tone because of myelopath y and she is on muscle relaxants. She is on dialysis from end-stage renal disease and has comorbidit ies as noted, which are addressed and are stable including chronic anemia for which she is receiving blood transfusion and iron and diabetes mellitus with elevated blood sugars, which are addressed with medication adjustment. She does have mild malnutrition with prealbumin 14.9 and albumin 2.2, addres sed by protein supplementation. Comorbid conditions that continue to impact rehab process are her end-stage renal disease, for which she has to go for dialysis 3 times weekly and also diabetes mellitus requiring significant adjustment s. She did have a low reading earlier, but most readings are in the 140s to 180s and she does have s ignificant pain at the site of her back. She is on narcotic including Percocet with a goal of decreasing that and using neuro modulators. LB/MODL Voice ID: [id number] Report ID: [id number]
[2022-07-22] MEDS: carvediloL 25 MG TAB PO SCH ×2 (05:00→16:56)
[2022-07-22 06:49] LABS: Hematocrit 23.4 % (36.0-45.0)
[2022-07-22] MEDS: Oxycodone HCl/Acetaminophen 1 TAB TAB PO PRN ×2 (06:58→11:11)
[2022-07-22] MEDS: LIDOCAINE 4% PATCH TOP SCH (06:58)
[2022-07-22] MEDS: INSULIN -REGULAR HUMAN 50 UNIT/0.5 ML ML SQ SCH ×4 (07:30→20:22)
[2022-07-22] MEDS: CYCLOSPORINE 0.05% OPTH SCH ×2 (07:32→20:21)
[2022-07-22] MEDS: LINACLOTIDE 290 MG PO SCH (07:32)
[2022-07-22] MEDS: SEVELAMER CARBONATE 800 MG TABLET PO SCH ×3 (07:39→16:56)
[2022-07-22] MEDS: MAGNESIUM OXIDE 400 MG TAB PO SCH (07:39)
[2022-07-22] MEDS: LOSARTAN POTASSIUM 50 MG TABLET PO SCH (07:39)
[2022-07-22] MEDS: NEPRO SHAKE 237 ML CAN PO SCH (07:40)
[2022-07-22] MEDS: ASPIRIN EC 81 MG TAB PO SCH (07:40)
[2022-07-22] MEDS: GABAPENTIN 300 MG CAP PO SCH ×2 (07:40→20:22)
[2022-07-22] MEDS: FAMOTIDINE 20 MG TAB PO SCH (07:40)
[2022-07-22] MEDS: DOCOSAHEXANOIC AC/EPA 1000 MG PO SCH (07:40)
[2022-07-22] MEDS: ASCORBIC ACID 500 MG TABLET PO SCH (07:40)
[2022-07-22] MEDS: FUROSEMIDE 40 MG TABLET PO SCH ×2 (07:40→16:56)
[2022-07-22] MEDS: APIXABAN 2.5 MG TABLET PO SCH ×2 (07:41→20:22)
[2022-07-22] MEDS: allopurinoL 100 MG TAB PO SCH (07:41)
[2022-07-22] MEDS: DULOXETINE 30 MG CAP PO SCH (07:41)
[2022-07-22] MEDS: MULTIVITAMINS,THERAPEUT 1 TAB PO SCH (07:41)
[2022-07-22] MEDS: LORATADINE 10 MG TAB PO SCH (07:41)
[2022-07-22] MEDS: CINACALCET 30 MG PO SCH (07:42)
[2022-07-22] MEDS: LEFLUNOMIDE 20 MG PO SCH (07:42)
[2022-07-22] MEDS: ISOSORBIDE DINIT 20 MG TAB PO SCH ×3 (09:19→20:21)
[2022-07-22] MEDS: HYDRALAZINE HCL 25 MG TABLET PO SCH ×3 (09:19→20:22)
--- NOTE | 2022-07-22 09:31 | P.RH.PN ---
Estimated Length of Stay: 16 Expected Discharge Date: 07/25/22 Discharge Disposition Plan: Home Family Support: Yes Vital Signs: Last Vital Signs Temp 97.3 F 07/22/22 07:50 Pulse 72 07/22/22 09:20 Resp 18 07/22/22 07:58 BP 140/63 07/22/22 09:20 Pulse Ox 93 07/22/22 07:58 Laboratory: Laboratory Last Values WBC 11.70 K/uL (4.3-10.9) H 07/21/22 04:06 RBC 2.28 M/uL (3.86-4.86) L 07/21/22 04:06 Hgb 7.8 g/dL (12.0-15.0) L 07/22/22 06:27 Hct Cancelled 07/22/22 Unknown MCV 95.8 fL (80-100) 07/21/22 04:06 MCH 31.5 pg (27.0-35.0) 07/21/22 04:06 MCHC 32.9 g/dL (32.0-36.0) 07/21/22 04:06 RDW 18.9 % (12.1-15.2) H 07/21/22 04:06 Plt Count 612 K/uL (152-406) H 07/21/22 04:06 MPV 8.0 fL (7.6-11.3) 07/21/22 04:06 Neutrophils % 57.4 % (41.7-73.7) 07/21/22 04:06 Lymphocytes % 16.7 % (15.3-44.8) 07/21/22 04:06 Monocytes % 11.2 % (3.3-12.3) 07/21/22 04:06 Eosinophils % 13.4 % (0-4.4) H 07/21/22 04:06 Basophils % 1.3 % (0-1.3) 07/21/22 04:06 Absolute Neutrophils 6.7 K/uL (1.8-8.0) 07/21/22 04:06 Absolute Lymphocytes 1.9 K/uL (0.7-4.9) 07/21/22 04:06 Absolute Monocytes 1.3 K/uL (0.1-1.3) 07/21/22 04:06 Absolute Eosinophils 1.6 K/uL (0-0.5) H 07/21/22 04:06 Absolute Basophils 0.1 K/uL (0-0.5) 07/21/22 04:06 Sodium 133 mmol/L (136-145) L 07/21/22 04:06 Potassium 4.2 mmol/L (3.5-5.1) 07/21/22 04:06 Chloride 99 mmol/L (98-107) 07/21/22 04:06 Carbon Dioxide 26 mmol/L (21-32) 07/21/22 04:06 Anion Gap 12.2 mEq/L (5.0-15.0) 07/21/22 04:06 BUN 60 mg/dL (7-18) H 07/21/22 04:06 Creatinine 5.05 mg/dL (0.55-1.3) H* 07/21/22 04:06 Est GFR (CKD-EPI) 9 ml/min (=/>90) L 07/21/22 04:06 Glucose 187 mg/dL (74-106) H 07/21/22 04:06 POC Glucose 103 mg/dL (65-120) 07/22/22 07:43 Hemoglobin A1c 6.0 % (4.2-6.3) 07/19/22 04:01 Calcium 9.5 mg/dL (8.5-10.1) 07/21/22 04:06 Phosphorus 3.1 mg/dL (2.5-4.9) 07/19/22 04:01 Magnesium 2.4 mg/dL (1.8-2.4) 07/21/22 04:06 Total Bilirubin 0.3 mg/dL (0.2-1.0) 07/19/22 04:01 AST 17 U/L (15-37) 07/19/22 04:01 ALT < 10 U/L (12-78) L 07/19/22 04:01 Alkaline Phosphatase 264 U/L (45-117) H 07/19/22 04:01 NT-Pro-B Natriuret Pep 99904 pg/mL (<125) H 07/19/22 04:01 Serum Total Protein 5.6 g/dL (6.4-8.2) L 07/19/22 04:01 Albumin 2.2 g/dL (3.4-5.0) L 07/21/22 04:06 Globulin 3.6 g/dL (2.3-3.5) H 07/19/22 04:01 Albumin/Globulin Ratio 0.6 (1.1-1.8) L 07/19/22 04:01 Prealbumin 14.9 mg/dL (20-40) L 07/21/22 04:06 PTH Intact 126.4 pg/mL (18.4-80.1) H 07/21/22 04:06 Urine Color Light-yellow (Yellow) 07/13/22 13:55 Urine Clarity Turbid (Clear) H 07/13/22 13:55 Urine pH 5.5 (5.0-7.0) 07/13/22 13:55 Ur Specific [place] 1.016 (1.005-1.030) 07/13/22 13:55 Glucose (UA)(Auto) Trace (Negative) H 07/13/22 13:55 Urine Ketones Negative (Negative) 07/13/22 13:55 Urine Blood Negative (Negative) 07/13/22 13:55 Urine Nitrite Negative (Negative) 07/13/22 13:55 Urine Bilirubin Negative (Negative) 07/13/22 13:55 Urine Urobilinogen Normal (Normal) 07/13/22 13:55 Ur Leukocyte Esterase 250 Ronny/uL (Negative) H 07/13/22 13:55 Urine RBC 5-10 /HPF (None Seen) H 07/13/22 13:55 Urine WBC 5-10 /HPF (<5) 07/13/22 13:55 Ur Squamous Epith Cells >50 /HPF (None Seen) H 07/13/22 13:55 U Non-Squamous Epi Cells <5 /HPF (None Seen) 07/13/22 13:55 Urine Bacteria <20 /HPF (<20) 07/13/22 13:55 Urine Total Protein 1+ (Negative) H 07/13/22 13:55 Rheumatoid Factor Neg (NEG) 07/15/22 06:14 SARS-CoV-2 Rap RNA(RT-PCR) Negative (NEGATIVE) 07/20/22 04:20 ABO/Rh Cancelled 07/21/22 Unknown Solid Phase Ab Screen Cancelled 07/21/22 Unknown Crossmatch See Detail 07/21/22 Unknown Weight: 190 lb 12.8 oz Wound Present: No Closed Surgical Incision Present: Yes Negative Pressure Wound Therapy Present: No Physician Update: Labs reviewed and are stable. Her Hgb improved after one unit of blood during dialysis. Her back pain is better. She is at contact guard assistance with gait. 99', 90' and 72' with GA using the RW. Bed mobility at min assistance. Out of bed at SBA. Pain was 6/10. She may cry at times with the pain. Transfers, CGA, lower body dressing CGA, using a medicaid analyst. Upper body dressing at set up. Summary: Patient's care plan and retirement goals have been reviewed and revised as necessary. Please see the Rehabilitation Signature page for all necessary signatures.
[2022-07-22] MEDS: TRAMADOL HCL 50 MG TAB PO PRN (10:38)
--- NOTE | 2022-07-22 10:45 | P.PN ---
Nephrology note: (S) Pt seen in bed, OT at bedside, pt reports pain worse today when abdominal binder removed, pain better when at rest today. Reports pain across the entire back, sharp or stabbing assoc with some muscle spasm. (O) vitals reviewed in the EM General: Alert, Cooperative, Mild distress HEENT: Atraumatic, Normocephalic, EOMI Respiratory: Clear to auscultation bilaterally, Normal air movement Cardiovascular: Regular rate/rhythm, Normal S1 S2 Gastrointestinal: Soft and benign, Non-distended, No tenderness Musculoskeletal: No swelling, No contractures Ext: Lt UE AVF with thrill and bruit Integumentary: No significant lesion Neurological: Normal speech, Normal tone, Normal affect Laboratory Data (last 24 hrs) Reviewed in the EMR Conclusions/Impression: 1. ESRD 2. Hypertensive CKD/ESRD 3. COPD, unspecified 4. RA with neg RF at this time 5 Degenerative disc disease 6. Secondary hyperparathyroidism due to CKD 7. Anemia 2nd to CKD, post surgical, other 8. Abnormality of albumin -Will cont iHD on a TTS basis while here at rehab, see HD orders for details -Pre-dialysis labs from yesterday reviewed, stable, will get metab panel at least once a week, more freq labs not needed -CaPhos < 55, but total corrected Ca remains elevated, did temp suspend active Vit D and re-checked PTH level which remains < 150, will cont home med Sensipar at lower dose for now but will avoid PTH < 100, cont phos binders. Suspended temp, nutritional Vit d as well -Did transfuse 1 unit PRBC on HD yesterday for persistent Hb < 8.0 with symptomatic anemia despite IV iron and GEMMA doses. Response to that was sub optimal, no reports of melenic stools but pt is on Eliquis, will check FOBT. -Cont home BP meds, trend BP. -Albumin quite low, added Nephro protein supplements, monitor. -OT/PT per rehab program. Santos Garay MD, [facility]
[2022-07-22] MEDS: EPOETIN ALFA 10,000 UNIT/ML VIAL SQ SCH (16:56)
[2022-07-22] MEDS: ATORVASTATIN 40 MG TAB PO SCH (20:21)
[2022-07-22] MEDS: INSULIN GLARGINE 100 UNIT/ML SQ SCH (20:22)
[2022-07-22] MEDS: TRELEGY ELLIPTA 100 MCG IH SCH (20:22)
[2022-07-22] MEDS: DOCUSATE NA/SENNA CONC 1 TAB PO SCH (20:22)
[2022-07-23] MEDS: carvediloL 25 MG TAB PO SCH ×2 (05:00→17:10)
[2022-07-23] MEDS: INSULIN -REGULAR HUMAN 50 UNIT/0.5 ML ML SQ SCH ×4 (07:30→19:52)
[2022-07-23] MEDS: LINACLOTIDE 290 MG PO SCH (07:34)
[2022-07-23] MEDS: LOSARTAN POTASSIUM 50 MG TABLET PO SCH (08:00)
[2022-07-23] MEDS: Oxycodone HCl/Acetaminophen 1 TAB TAB PO PRN ×2 (08:31→19:23)
[2022-07-23] MEDS: APIXABAN 2.5 MG TABLET PO SCH ×2 (08:32→19:23)
[2022-07-23] MEDS: LIDOCAINE 4% PATCH TOP SCH (08:32)
[2022-07-23] MEDS: SEVELAMER CARBONATE 800 MG TABLET PO SCH ×3 (08:33→17:11)
[2022-07-23] MEDS: DULOXETINE 30 MG CAP PO SCH (08:33)
[2022-07-23] MEDS: allopurinoL 100 MG TAB PO SCH (08:33)
[2022-07-23] MEDS: ASPIRIN EC 81 MG TAB PO SCH (08:33)
[2022-07-23] MEDS: LORATADINE 10 MG TAB PO SCH (08:33)
[2022-07-23] MEDS: FUROSEMIDE 40 MG TABLET PO SCH ×2 (08:34→17:11)
[2022-07-23] MEDS: FAMOTIDINE 20 MG TAB PO SCH (08:36)
[2022-07-23] MEDS: GABAPENTIN 300 MG CAP PO SCH ×2 (08:36→19:23)
[2022-07-23] MEDS: MULTIVITAMINS,THERAPEUT 1 TAB PO SCH (08:36)
[2022-07-23] MEDS: MAGNESIUM OXIDE 400 MG TAB PO SCH (08:36)
[2022-07-23] MEDS: ASCORBIC ACID 500 MG TABLET PO SCH (08:36)
[2022-07-23] MEDS: DOCOSAHEXANOIC AC/EPA 1000 MG PO SCH (08:37)
[2022-07-23] MEDS: ISOSORBIDE DINIT 20 MG TAB PO SCH ×3 (09:00→19:23)
[2022-07-23] MEDS: HYDRALAZINE HCL 25 MG TABLET PO SCH ×3 (09:00→19:23)
[2022-07-23] MEDS: CYCLOSPORINE 0.05% OPTH SCH ×2 (09:09→19:23)
[2022-07-23] MEDS: CINACALCET 30 MG PO SCH (09:10)
[2022-07-23] MEDS: LEFLUNOMIDE 20 MG PO SCH (09:11)
[2022-07-23] MEDS: NEPRO SHAKE 237 ML CAN PO SCH (09:12)
[2022-07-23] MEDS: SOD FERRIC GLUC COMPLX/SUCROSE 125 MG in NA CHLORIDE 0.9% 100 ML IV SCH (12:00)
--- NOTE | 2022-07-23 14:52 | P.PN ---
Date of Service: 07/23/22 seen/examined. getting dialysis. h/h has been stable. clinically looks well/denies pain. trace edema vs stable lungs cta cvs rrr abd soft a/p esrd/anemia: hd done today. clinically stable. continue rehab.
[2022-07-23] MEDS: TRELEGY ELLIPTA 100 MCG IH SCH (19:23)
[2022-07-23] MEDS: ATORVASTATIN 40 MG TAB PO SCH (19:24)
[2022-07-23] MEDS: INSULIN GLARGINE 100 UNIT/ML SQ SCH (19:52)
[2022-07-23] MEDS: DOCUSATE NA/SENNA CONC 1 TAB PO SCH (19:53)
[2022-07-24] MEDS: carvediloL 25 MG TAB PO SCH ×2 (05:11→16:53)
[2022-07-24] MEDS: CYCLOSPORINE 0.05% OPTH SCH ×2 (06:20→19:38)
[2022-07-24] MEDS: INSULIN -REGULAR HUMAN 50 UNIT/0.5 ML ML SQ SCH ×4 (07:30→19:46)
[2022-07-24] MEDS: LINACLOTIDE 290 MG PO SCH (07:34)
[2022-07-24] MEDS: Oxycodone HCl/Acetaminophen 1 TAB TAB PO PRN ×3 (07:44→18:57)
[2022-07-24] MEDS: LIDOCAINE 4% PATCH TOP SCH (07:45)
[2022-07-24] MEDS: FAMOTIDINE 20 MG TAB PO SCH (07:51)
[2022-07-24] MEDS: DULOXETINE 30 MG CAP PO SCH (07:51)
[2022-07-24] MEDS: LOSARTAN POTASSIUM 50 MG TABLET PO SCH (07:51)
[2022-07-24] MEDS: FUROSEMIDE 40 MG TABLET PO SCH ×2 (07:51→16:53)
[2022-07-24] MEDS: allopurinoL 100 MG TAB PO SCH (07:51)
[2022-07-24] MEDS: MULTIVITAMINS,THERAPEUT 1 TAB PO SCH (07:51)
[2022-07-24] MEDS: SEVELAMER CARBONATE 800 MG TABLET PO SCH ×3 (07:52→16:53)
[2022-07-24] MEDS: APIXABAN 2.5 MG TABLET PO SCH ×2 (07:52→19:38)
[2022-07-24] MEDS: DOCOSAHEXANOIC AC/EPA 1000 MG PO SCH (07:52)
[2022-07-24] MEDS: MAGNESIUM OXIDE 400 MG TAB PO SCH (07:52)
[2022-07-24] MEDS: GABAPENTIN 300 MG CAP PO SCH ×2 (07:53→19:39)
[2022-07-24] MEDS: ASCORBIC ACID 500 MG TABLET PO SCH (07:53)
[2022-07-24] MEDS: ASPIRIN EC 81 MG TAB PO SCH (07:53)
[2022-07-24] MEDS: LORATADINE 10 MG TAB PO SCH (07:53)
[2022-07-24] MEDS: CINACALCET 30 MG PO SCH (07:54)
[2022-07-24] MEDS: LEFLUNOMIDE 20 MG PO SCH (07:54)
[2022-07-24 10:36] LABS: Arterial Blood Carboxyhemoglob 0.4 % (0-1.5); Blood Gas Oxyhemoglobin 93.3 % (94-97); Blood O2 Saturation 94.3 % (92-98.5)
[2022-07-24] MEDS: ISOSORBIDE DINIT 20 MG TAB PO SCH ×3 (10:44→19:38)
[2022-07-24] MEDS: HYDRALAZINE HCL 25 MG TABLET PO SCH ×3 (10:44→19:38)
[2022-07-24] MEDS: TRAMADOL HCL 50 MG TAB PO PRN (14:41)
[2022-07-24 14:44] LABS: Absolute Lymphocytes (CBC) 1.8 K/uL (0.7-4.9); Hematocrit 24.2 % (36.0-45.0); Lymphocytes % 17.3 % (15.3-44.8); MCV 95.6 fL (80-100); MPV 7.3 fL (7.6-11.3); RBC Red Blood Cell Count 2.53 M/uL (3.86-4.86)
[2022-07-24] MEDS: DOCUSATE NA/SENNA CONC 1 TAB PO SCH (19:38)
[2022-07-24] MEDS: ATORVASTATIN 40 MG TAB PO SCH (19:38)
[2022-07-24] MEDS: TRELEGY ELLIPTA 100 MCG IH SCH (19:38)
[2022-07-24] MEDS: INSULIN GLARGINE 100 UNIT/ML SQ SCH (19:46)
[2022-07-24] MEDS: NEPRO SHAKE 237 ML CAN PO SCH (19:48)
[2022-07-25] MEDS: Oxycodone HCl/Acetaminophen 1 TAB TAB PO PRN ×3 (00:32→12:02)
[2022-07-25 05:05] LABS: Absolute Lymphocytes (CBC) 2.2 K/uL (0.7-4.9); Hematocrit 23.7 % (36.0-45.0); Lymphocytes % 23.1 % (15.3-44.8); MCV 95.7 fL (80-100); MPV 7.8 fL (7.6-11.3); RBC Red Blood Cell Count 2.47 M/uL (3.86-4.86)
[2022-07-25] MEDS: carvediloL 25 MG TAB PO SCH ×2 (05:18→17:00)
[2022-07-25 05:23] LABS: Potassium 4.8 mmol/L (3.5-5.1)
[2022-07-25 05:50] LABS: Anisocytosis 2+; Blood Morphology Comment NOTED (NOT SEEN); Platelet Estimate ADEQ; Polychromasia 2+
[2022-07-25] MEDS: PANTOPRAZOLE 40MG TABLET PO SCH ×2 (07:25→16:37)
[2022-07-25] MEDS: CYCLOSPORINE 0.05% OPTH SCH ×2 (07:25→20:13)
[2022-07-25] MEDS: LINACLOTIDE 290 MG PO SCH (07:26)
[2022-07-25] MEDS: INSULIN -REGULAR HUMAN 50 UNIT/0.5 ML ML SQ SCH ×4 (07:30→20:12)
[2022-07-25] MEDS: NEPRO SHAKE 237 ML CAN PO SCH ×2 (08:00→20:14)
[2022-07-25] MEDS: SEVELAMER CARBONATE 800 MG TABLET PO SCH ×4 (08:06→16:39)
[2022-07-25] MEDS: LORATADINE 10 MG TAB PO SCH (08:12)
[2022-07-25] MEDS: LOSARTAN POTASSIUM 50 MG TABLET PO SCH (08:12)
[2022-07-25] MEDS: ASPIRIN EC 81 MG TAB PO SCH (08:12)
[2022-07-25] MEDS: MAGNESIUM OXIDE 400 MG TAB PO SCH (08:12)
[2022-07-25] MEDS: GABAPENTIN 300 MG CAP PO SCH ×2 (08:12→20:14)
[2022-07-25] MEDS: FUROSEMIDE 40 MG TABLET PO SCH ×2 (08:13→17:00)
[2022-07-25] MEDS: DULOXETINE 30 MG CAP PO SCH (08:13)
[2022-07-25] MEDS: allopurinoL 100 MG TAB PO SCH (08:13)
[2022-07-25] MEDS: ASCORBIC ACID 500 MG TABLET PO SCH (08:13)
[2022-07-25] MEDS: DOCOSAHEXANOIC AC/EPA 1000 MG PO SCH (08:13)
[2022-07-25] MEDS: CINACALCET 30 MG PO SCH (08:16)
[2022-07-25] MEDS: MULTIVITAMINS,THERAPEUT 1 TAB PO SCH (08:16)
[2022-07-25] MEDS: LEFLUNOMIDE 20 MG PO SCH (08:16)
[2022-07-25] MEDS: APIXABAN 2.5 MG TABLET PO SCH (08:16)
[2022-07-25] MEDS: ISOSORBIDE DINIT 20 MG TAB PO SCH ×3 (09:29→20:13)
[2022-07-25] MEDS: HYDRALAZINE HCL 25 MG TABLET PO SCH ×3 (09:30→20:13)
[2022-07-25] MEDS: TRAMADOL HCL 50 MG TAB PO PRN (09:57)
[2022-07-25] MEDS: LIDOCAINE 4% PATCH TOP SCH (10:04)
--- NOTE | 2022-07-25 10:58 | P.PN ---
Nephrology note: (S) Pt in the shower this AM, labs reviewed, Hb remains < 8.0, FOBT positive results noted, case discussed with nursing staff and with Dr. Montanez (O) vitals reviewed in the EMR (Prior exam) General: Alert, Cooperative, Mild distress HEENT: Atraumatic, Normocephalic, EOMI Respiratory: Clear to auscultation bilaterally, Normal air movement Cardiovascular: Regular rate/rhythm, Normal S1 S2 Gastrointestinal: Soft and benign, Non-distended, No tenderness Musculoskeletal: No swelling, No contractures Ext: Lt UE AVF with thrill and bruit Integumentary: No significant lesion Neurological: Normal speech, Normal tone, Normal affect Laboratory Data (last 24 hrs) Reviewed in the EMR Conclusions/Impression: 1. ESRD 2. Hypertensive CKD/ESRD 3. COPD, unspecified 4. RA with neg RF at this time 5 Degenerative disc disease 6. Secondary hyperparathyroidism due to CKD 7. Anemia 2nd to CKD, post surgical, GI bleeding, other 8. Abnormality of albumin -Will cont iHD on a TTS basis while here at rehab, see HD orders for details -Pre-dialysis labs from last week reviewed, stable, will get metab panel at least once a week, more freq labs not needed -CaPhos < 55 on last check, but total corrected Ca remains elevated, did temp suspend active Vit D and re-checked PTH level which remains < 150, will cont home med Sensipar at lower dose for now but will avoid PTH < 100, cont phos binders. Suspended temp, nutritional Vit d as well -Did transfuse 1 unit PRBC on HD Thurs for persistent Hb < 8.0 with symptomatic anemia despite IV iron and GEMMA doses. Response to that was sub optimal, no reports of melenic stools but pt is on Eliquis, did check FOBT which was positive. Will stop Eliquis and place on lower dose Heparin for DVT ppx. Will place on BID PPI for GI ppx, will monitor counts closely -Cont home BP meds, trend BP. -Albumin quite low, added Nephro protein supplements, monitor. -Remains on home meds for RA, f/u with Rheum on discharge. -OT/PT per rehab program. Santos Garay MD, [facility]
[2022-07-25] MEDS ORDERED: ONDANSETRON 4 MG (ODT) TAB PO PRN (12:00)
[2022-07-25] MEDS ORDERED: MECLIZINE HCL 12.5 MG TAB PO PRN (13:38)
[2022-07-25] MEDS: EPOETIN ALFA 10,000 UNIT/ML VIAL SQ SCH (16:59)
[2022-07-25] MEDS: TRELEGY ELLIPTA 100 MCG IH SCH (20:12)
[2022-07-25] MEDS: INSULIN GLARGINE 100 UNIT/ML SQ SCH (20:12)
[2022-07-25] MEDS: DOCUSATE NA/SENNA CONC 1 TAB PO SCH (20:13)
[2022-07-25] MEDS: ATORVASTATIN 40 MG TAB PO SCH (20:13)
--- NOTE | 2022-07-26 01:32 | PN ---
Date of Progress Note: 07/25/2022 [id number] visit with patient, Wendy Ziegler. Subjective: Ms. Zieglre had an episode of vertigo today after she received her shower, she was bendin g down to do wiping and felt the room spinning slightly and she became nauseated. After she got out of her shower, she also attempted to put her shoes on and had similar symptoms. She was brought back to bed and received medications including meclizine and Zofran with improvement in her symptoms. Review of Systems: She reports some improvement in the back pain at the mid back region and has been doing better with h er therapy with that risk factors. No significant spasming. Physical Examination: Vital Signs: Blood pressure 132/64, pulse 78, respiratory rate 16, temperature 97.9, oxygen saturati on 94% on room air. General: Ms. Ziegler is lying in bed, in no significant distress. She has no focal deficits. Extremities: Mild edema in her lower extremities. Back: Her surgical site in the back has good hemostasis. Laboratory Studies: White blood cell count 9.5, hemoglobin 7.7. She is followed by the [facility]al Serv[facility] e and she did have a positive guaiac. Following her blood count, she did receive a unit of blood las t week and did not improve her hemoglobin very much from 7.2 to 8.4, but now is back to 7.1. Kidney function today showed creatinine 5.2. Dialysis is today and she has that planned. Sodium 132, gluco se ranged from 160-223, calcium 9.2. X-ray Imaging: No new x-rays imaging. Medications: She was switched from Eliquis 2.5 mg twice daily to heparin 5000 units twice daily due to GI positive guaiac. Now on aspirin 81 mg daily; allopurinol 100 mg daily; Lipitor 40 mg at bedtim e; Dulcolax 10 mg as needed and rectal suppository; Coreg 25 mg twice daily; Flexeril 5 mg twice ella y; Cymbalta 30 mg daily; Nepro shakes 237 mL at bedtime; Retacrit 10,000 units with hemodialysis on M , Monday, and Monday; fish oil 1000 mg daily; Lasix 40 mg twice daily; gabapentin 300 mg twic e daily; heparin 5000 units subcutaneously twice daily; Apresoline 25 mg 3 times a day; insulin glarg ine 28 units at bedtime; Claritin 10 mg daily; Aspercreme 4% patch daily; Isordil 20 mg 3 times daily ; Cozaar 100 mg daily; meclizine 25 mg every 4 hours; magnesium oxide 400 mg daily; melatonin 3 mg at bedtime; Percocet 5/325 one tablet every 4 hours; Protonix 40 mg twice daily; Senokot 2 tablets at b edtime; Renvela 800 mg 3 times daily; tramadol 50 mg every 4 hours; and folic acid 1 mg daily. Current Functional Status: She did have dizziness and fatigue earlier this morning as noted; however , bed mobility was done with independence. She did stand and pivot transfer and was stabilized using a rolling walker. Self propelled wheelchair independently over 150 feet with bilateral upper extrem ities and lower extremities. Progress towards rehabilitation goals: She is making good progress overall with her physical and occ upational therapy. Able to do transfers as noted. Mobilized hospital distances and do upper and low er body dressing. She did have some dizziness with the shower and as she was bending and lifting her head, cleaning her lower parts and putting her shoes on. Assessment And Plan: Ms. Ziegler is a 67-year-old patient with lumbar spinal stenosis status post dec ompression. She has comorbid end-stage renal disease on hemodialysis, diabetes mellitus, and hyperte nsion and is again making overall good progress. She will continue with physical and occupational th erapy as noted. Continue with dialysis 3 days weekly. Continue with medication for diabetes and hyp ertension, in addition to nausea and vertigo. Continue with pain medications. Continue allergy medi cations. Continue gabapentin for neuropathic pain. Continue allopurinol for gout. Comorbid conditi ons continuing to impact her rehab process include her end-stage renal disease on hemodialysis due to requiring 3 days a week dialysis about 3 hours each time. She has diabetes mellitus and that medica tion is to be adjusted. She did have positive black stools and significant anemia and that is also impacting her rehab process as that does cause significant weakness. LB/MODL Voice ID: [id number] Report ID: [id number]
[2022-07-26 04:17] LABS: Hematocrit 24.2 % (36.0-45.0); MCV 95.4 fL (80-100); MPV 7.4 fL (7.6-11.3); RBC Red Blood Cell Count 2.54 M/uL (3.86-4.86)
[2022-07-26] MEDS: carvediloL 25 MG TAB PO SCH ×2 (05:29→17:03)
[2022-07-26] MEDS: INSULIN -REGULAR HUMAN 50 UNIT/0.5 ML ML SQ SCH ×4 (07:30→20:14)
[2022-07-26] MEDS: LINACLOTIDE 290 MG PO SCH (07:36)
[2022-07-26] MEDS: HEPARIN 5000 UNIT/ML 1 ML VIAL SQ SCH ×2 (07:37→18:00)
[2022-07-26] MEDS: LIDOCAINE 4% PATCH TOP SCH (07:37)
[2022-07-26] MEDS: PANTOPRAZOLE 40MG TABLET PO SCH ×2 (07:40→16:30)
[2022-07-26] MEDS: LOSARTAN POTASSIUM 50 MG TABLET PO SCH (08:00)
[2022-07-26] MEDS: HYDRALAZINE HCL 25 MG TABLET PO SCH ×3 (08:13→20:13)
[2022-07-26] MEDS: ISOSORBIDE DINIT 20 MG TAB PO SCH ×3 (08:15→20:13)
[2022-07-26] MEDS: Oxycodone HCl/Acetaminophen 1 TAB TAB PO PRN ×3 (08:37→21:49)
[2022-07-26] MEDS: DULOXETINE 30 MG CAP PO SCH (08:40)
[2022-07-26] MEDS: ASPIRIN EC 81 MG TAB PO SCH (08:40)
[2022-07-26] MEDS: ASCORBIC ACID 500 MG TABLET PO SCH (08:41)
[2022-07-26] MEDS: allopurinoL 100 MG TAB PO SCH (08:41)
[2022-07-26] MEDS: FUROSEMIDE 40 MG TABLET PO SCH ×2 (08:41→17:00)
[2022-07-26] MEDS: MAGNESIUM OXIDE 400 MG TAB PO SCH (08:41)
[2022-07-26] MEDS: GABAPENTIN 300 MG CAP PO SCH ×2 (08:41→20:17)
[2022-07-26] MEDS: SEVELAMER CARBONATE 800 MG TABLET PO SCH ×4 (08:41→18:11)
[2022-07-26] MEDS: MULTIVITAMINS,THERAPEUT 1 TAB PO SCH (08:41)
[2022-07-26] MEDS: DOCOSAHEXANOIC AC/EPA 1000 MG PO SCH (08:41)
[2022-07-26] MEDS: LORATADINE 10 MG TAB PO SCH (08:41)
[2022-07-26] MEDS: CYCLOSPORINE 0.05% OPTH SCH ×2 (09:31→20:12)
[2022-07-26] MEDS: CINACALCET 30 MG PO SCH (09:32)
[2022-07-26] MEDS: LEFLUNOMIDE 20 MG PO SCH (09:32)
--- NOTE | 2022-07-26 19:38 | PN ---
A ozkg-nd-bnpb visit with patient, Wendy Ziegler. Subjective: Ms. Ziegler is doing better today than yesterday. She had mild nausea, which was address ed with medication. She had blyi-hd-knxfkdty back pain addressed again by medications, especially pr ior to her therapeutic exercises. She has no new complaints. Review of Systems: No fevers or chills. No significant nausea. No vomiting. Her mid back pain is still present, but f luctuates. No significant edema in the extremities. Laboratory Studies: White blood cell count 9.3, hemoglobin 7.9. Glucose ranged from 88-151. X-ray Imaging: No new x-ray imaging. Medications: Medication list has not changed since yesterday, which includes medication for hyperten debbi that is Coreg, heparin for DVT prophylaxis, aspirin 81 mg daily, Lipitor 40 mg at bedtime, along with treatment for diabetes mellitus. Current Functional Status: Currently, she is able to posterior propel a wheelchair with bilateral lo wer extremities with the physical therapist until over 250 feet taking 2 rest breaks. She ambulated 60 feet, 55 feet, 90 feet, and 75 feet with contact guard assistance using a rolling walker. She the n independently propelled a wheelchair bilaterally for 250 feet with upper extremities and lower extr emities. Progress towards rehabilitation goals: She is making very good progress now with her rehabilitation goals to be able to be independent with her ADLs, transfers, and household distances so she may retur n home and function independently. Assessment And Plan: Ms. Ziegler is a 67-year-old patient with thoracic cord compression who is letha mi good overall progress with physical and occupational therapy. She has comorbid end-stage renal dis ease, on hemodialysis and has dialysis 3 times weekly, followed by the [facility]al Service. She has diabet es mellitus and hypertension managed by continuing medication. She has risk of deep vein thrombosis, treated with heparin. Pain is managed by pain medications including narcotics. She does have some nausea that is addressed with Zofran. Comorbidities that continue to impact her rehabilitation process, as noted previously, end-stage myrna l disease on hemodialysis, requires her to have either 3 days a week, but that is worked around with therapy. She also has hypertension and diabetes mellitus with adjustments with medications to help m toshiantain that. She has chronic anemia likely related to her renal failure. She did receive 1 unit of blood and she had guaiac-positive stool that medication regimen was adjusted from decreasing Eliquis 2.5 mg daily to Lovenox 5000 units subcu daily. BETITO Voice ID: [id number] Report ID: [id number]
[2022-07-26] MEDS: DOCUSATE NA/SENNA CONC 1 TAB PO SCH (20:13)
[2022-07-26] MEDS: ATORVASTATIN 40 MG TAB PO SCH (20:13)
[2022-07-26] MEDS: INSULIN GLARGINE 100 UNIT/ML SQ SCH (20:14)
[2022-07-26] MEDS: TRELEGY ELLIPTA 100 MCG IH SCH (20:15)
[2022-07-26] MEDS: NEPRO SHAKE 237 ML CAN PO SCH (20:17)
[2022-07-27] MEDS: FUROSEMIDE 40 MG TABLET PO SCH ×2 (04:43→17:05)
[2022-07-27] MEDS: carvediloL 25 MG TAB PO SCH ×3 (05:39→18:13)
[2022-07-27 06:21] LABS: Absolute Lymphocytes (CBC) 0.8 K/uL (0.7-4.9); Hematocrit 24.8 % (36.0-45.0); Lymphocytes % 9.2 % (15.3-44.8); MCV 96.4 fL (80-100); MPV 7.7 fL (7.6-11.3); RBC Red Blood Cell Count 2.57 M/uL (3.86-4.86)
[2022-07-27 06:37] LABS: Albumin 2.1 g/dL (3.4-5.0); Phosphorus 3.4 mg/dL (2.5-4.9); Potassium 4.8 mmol/L (3.5-5.1)
[2022-07-27] MEDS: INSULIN -REGULAR HUMAN 50 UNIT/0.5 ML ML SQ SCH ×4 (07:30→21:00)
[2022-07-27] MEDS: HEPARIN 5000 UNIT/ML 1 ML VIAL SQ SCH ×2 (08:04→19:46)
[2022-07-27] MEDS: LINACLOTIDE 290 MG PO SCH (08:30)
[2022-07-27] MEDS: CINACALCET 30 MG PO SCH (08:30)
[2022-07-27] MEDS: LEFLUNOMIDE 20 MG PO SCH (08:31)
[2022-07-27] MEDS: Oxycodone HCl/Acetaminophen 1 TAB TAB PO PRN (08:31)
[2022-07-27] MEDS: SEVELAMER CARBONATE 800 MG TABLET PO SCH ×3 (08:32→17:00)
[2022-07-27] MEDS: HYDRALAZINE HCL 25 MG TABLET PO SCH ×3 (08:33→19:46)
[2022-07-27] MEDS: GABAPENTIN 300 MG CAP PO SCH (08:33)
[2022-07-27] MEDS: PANTOPRAZOLE 40MG TABLET PO SCH ×2 (08:33→17:05)
[2022-07-27] MEDS: allopurinoL 100 MG TAB PO SCH (08:33)
[2022-07-27] MEDS: MULTIVITAMINS,THERAPEUT 1 TAB PO SCH (08:34)
[2022-07-27] MEDS: LORATADINE 10 MG TAB PO SCH (08:35)
[2022-07-27] MEDS: ASPIRIN EC 81 MG TAB PO SCH (08:35)
[2022-07-27] MEDS: ASCORBIC ACID 500 MG TABLET PO SCH (08:41)
[2022-07-27] MEDS: LIDOCAINE 4% PATCH TOP SCH (08:41)
[2022-07-27] MEDS: ISOSORBIDE DINIT 20 MG TAB PO SCH ×3 (08:41→19:46)
[2022-07-27] MEDS: CYCLOSPORINE 0.05% OPTH SCH ×2 (08:41→19:48)
[2022-07-27] MEDS: MAGNESIUM OXIDE 400 MG TAB PO SCH (08:41)
[2022-07-27] MEDS: DOCOSAHEXANOIC AC/EPA 1000 MG PO SCH (08:42)
[2022-07-27] MEDS: DULOXETINE 30 MG CAP PO SCH (08:42)
[2022-07-27] MEDS: LOSARTAN POTASSIUM 50 MG TABLET PO SCH (10:43)
--- NOTE | 2022-07-27 13:41 | RAD REPORT ---
EXAM DESCRIPTION: CT - Head Brain Wo Cont - 07/27/2022 1:35 pm CLINICAL HISTORY: patient became very sleepy COMPARISON: No comparisons TECHNIQUE: Axial 5 mm thick images of the head were obtained without IV contrast. All CT scans are performed using dose optimization technique as appropriate and may include automated exposure control or mA/KV adjustment according to patient size. FINDINGS: No intracranial hemorrhage, mass, edema or shift of mid-line structures. No acute infarcti on changes seen. No abnormal extra-axial fluid collections. Ventricles are normal. Atrophy and chroni c ischemic changes are very minimal. Mastoid air cells and visualized portions of the paranasal sinuses are clear. No acute bony findings. IMPRESSION: Negative non-contrast CT head examination for acute finding.
--- NOTE | 2022-07-27 16:15 | RAD REPORT ---
EXAM DESCRIPTION: XR Chest, 1 View CLINICAL HISTORY: The patient is 67 years old and is Female; sob TECHNIQUE: Frontal view of the chest. COMPARISON: No relevant prior studies available. FINDINGS: Lungs: Mildly prominent interstitial markings which may indicate mild interstitial edema . No consolidation. Pleural space: Unremarkable. No pneumothorax. Heart: Unremarkable. Mediastinum: Unremarkable. Bones/joints: Postsurgical changes in the thoracolumbar spine. Vasculature: Prominent vascular markings. Upper abdomen: Clips overlying the right upper quadrant. IMPRESSION: Mildly prominent interstitial markings which may indicate mild interstitial edema. No co nsolidation. Electronically signed by: Tylor Alvarez MD 07/27/2022 6:02 AM CDT Due to temporary technical issues with the PACS/Fluency reporting system, reports are being signed by the in house radiologists without review as a courtesy to insure prompt reporting. The interpreting radiologist is fully responsible for the content of the report.
[2022-07-27] MEDS ORDERED: NS IV ONE ×2 (17:00)
[2022-07-27] MEDS ORDERED: CEFTRIAXONE 2 GM/100 ML IV ONE ×2 (17:00)
[2022-07-27] MEDS ORDERED: ACETAMINOPHEN 500 MG TAB PO PRN (17:03)
[2022-07-27 17:09] LABS: Absolute Lymphocytes (CBC) 1.3 K/uL (0.7-4.9); Hematocrit 24.4 % (36.0-45.0); Lymphocytes % 9.9 % (15.3-44.8); MCV 95.9 fL (80-100); MPV 7.1 fL (7.6-11.3); RBC Red Blood Cell Count 2.55 M/uL (3.86-4.86)
[2022-07-27 17:10] LABS: Anisocytosis 2+; Blood Morphology Comment NOTED (NOT SEEN); Platelet Estimate INCR; White Blood Cell Scan OK (OK)
[2022-07-27] MEDS ORDERED: NA CHLORIDE 0.9% 0 ML ONE (17:51)
[2022-07-27] MEDS ORDERED: VANCOMYCIN 1.75 GM in NA CHLORIDE 0.9% 500 ML IVPB ONE (18:00)
[2022-07-27] MEDS: EPOETIN ALFA 10,000 UNIT/ML VIAL SQ SCH (18:12)
[2022-07-27] MEDS ORDERED: NA CHLORIDE 0.9% 1,000 ML ONE (18:35)
[2022-07-27 18:48] LABS: Specific Gravity 1.012 (1.005-1.030); Urine Bacteria <20 /HPF (<20); Urine Bilirubin NEGATIVE (Negative); Urine Blood Negative (Negative); Urine Clarity Clear (Clear); Urine Color Yellow (Yellow); Urine Glucose NEGATIVE (Negative); Urine Protein 1+ (Negative); Urine RBC <5 /HPF (None Seen); Urine Urobilinogen Normal (Normal); Urine pH 5.5 (5.0-7.0)
[2022-07-27] MEDS: ATORVASTATIN 40 MG TAB PO SCH (19:46)
[2022-07-27] MEDS: DOCUSATE NA/SENNA CONC 1 TAB PO SCH (19:47)
[2022-07-27] MEDS: TRELEGY ELLIPTA 100 MCG IH SCH (19:48)
[2022-07-27] MEDS: NEPRO SHAKE 237 ML CAN PO SCH (19:56)
[2022-07-27] MEDS: INSULIN GLARGINE 100 UNIT/ML SQ SCH (21:00)
--- NOTE | 2022-07-28 02:29 | PN ---
Date of Progress Note: 07/27/2022 This is a face-to face visit with patient, Wendy iZegler. Subjective: Ms. Ziegler actually has had more of medical depression today. She did start off with a well started therapy, but then became very somnolent, difficult to arouse and did not eat her lunch. At the time of my evaluation, very hard to awake, she was snoring in a more extended way. Her thong p at the time did include chest x-ray showing mild pulmonary interstitial edema. She did have a CT s can of her head, which showed no acute ischemic or hemorrhagic findings. The study was negative for that. Blood work did show an elevation of her white count to 12.8, which earlier today was 9.1 and s he did have 78.7 neutrophils and hemoglobin 8.0. Her blood sugar was ranging from 100-115. Procalci tonin was slightly elevated to 1.09 with lactic acid normal at 1.0. At night, the patient did have a low blood sugar down to 25 around 4:30 in the morning. She was given and that increased by 5:30 to 79. The worry is that the patient did have some complication related to her spinal surger y in the thoracic region. Evaluation of the wound did show some drainage of the site. She was start ed on Rocephin 2 g and vancomycin per protocol, given she has end-stage renal disease on dialysis and the Renal Service informed and they are following the patient as well. Review of Systems: Unable to accomplish that as the patient does not answer any questions at this point. Physical Examination: Vital Signs: Temperature max of 100 on forehead, pulse of 92, blood pressure 114/58, oxygen saturati on 100%. General: Ms. Ziegler is lying in bed, difficult to arouse, opens the eyes and would close the eyes ba ck fairly quickly. She does not appear to be in any acute distress at this point, however, again sandi y difficult to arouse. Lungs: She does have good air movement. Abdomen: Appears soft. Extremities: No significant edema or cyanosis. She does have some drainage at the lower back surgic al site. Her general exam is otherwise unremarkable. Data Reviewed: Her x-rays and laboratory data are as discussed above. Medications: She is now on vancomycin and Rocephin. She is receiving allopurinol, aspirin, Lipitor, Coreg, and Lasix. She is on medications for diabetes mellitus, which has been decreased. Her insul in at night was decreased from 28 units to 24 units at bedtime and to be shelved if she has not had a ny dinner or snack. Current Functional Status: Currently therapy was held today given her medical condition, which did neema martin. She, earlier in the morning participated in ambulation. She did 15 feet twice with contact g uard assistance using a rolling walker. Progress towards rehabilitation goals: Today she has not made any significant improvement as she has medical challenges as noted. Prior to her being more sleepy, she was able to transfer from supine t o sit with contact guard assistance using bed rails. She performed [id number] transfers with conta ct guard assistance using a rolling walker. She was able to perform sit to supine with minimal joanie tance using her lower extremities. Assessment: Ms. Ziegler is a 67-year-old patient who has had medical challenges, potentially other th an infection she has end-stage renal disease on dialysis; however, she did have fevers, she has sligh tly elevated procalcitonin, normal lactic acid, slightly increased white blood cell count and she is more difficult to arouse. Her head CT scan did not show any acute ischemic or hemorrhagic changes. Chest x-ray is not consistent with any infection. She has not had a chest CT scan. The Renal Servic e is following her. She is now on vancomycin and Rocephin. She does have diabetes mellitus and hype rtension as comorbid conditions and managed by continuing her current medications. She did have an e pisode of low blood sugar this morning and her insulin dosage was decreased. 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 Also end-stage renal d isease, as noted previously, may make it difficult for her to be able to have full therapy as she has to have 3 days a week of hemodialysis about 3 hours each time, but that is being w orked around. LB/MODL Voice ID: [id number] Report ID: [id number]
[2022-07-28 04:55] LABS: Hematocrit 21.9 % (36.0-45.0); Lymphocytes % 16.3 % (15.3-44.8); MCV 97.3 fL (80-100); MPV 8.1 fL (7.6-11.3); RBC Red Blood Cell Count 2.25 M/uL (3.86-4.86)
[2022-07-28] MEDS: carvediloL 25 MG TAB PO SCH (05:06)
[2022-07-28 05:16] LABS: Albumin 1.9 g/dL (3.4-5.0); Magnesium 2.5 mg/dL (1.8-2.4); Phosphorus 3.1 mg/dL (2.5-4.9); Potassium 4.8 mmol/L (3.5-5.1)
[2022-07-28] MEDS: INSULIN -REGULAR HUMAN 50 UNIT/0.5 ML ML SQ SCH ×4 (07:07→20:04)
[2022-07-28] MEDS: CYCLOSPORINE 0.05% OPTH SCH ×2 (07:19→19:18)
[2022-07-28] MEDS: PANTOPRAZOLE 40MG TABLET PO SCH ×2 (07:19→16:25)
[2022-07-28] MEDS: LINACLOTIDE 290 MG PO SCH (07:20)
[2022-07-28] MEDS: HEPARIN 5000 UNIT/ML 1 ML VIAL SQ SCH ×2 (07:24→20:00)
[2022-07-28] MEDS: Oxycodone HCl/Acetaminophen 1 TAB TAB PO PRN ×4 (07:39→22:25)
[2022-07-28] MEDS: ASPIRIN EC 81 MG TAB PO SCH (07:41)
[2022-07-28] MEDS: allopurinoL 100 MG TAB PO SCH (07:41)
[2022-07-28] MEDS: MAGNESIUM OXIDE 400 MG TAB PO SCH (07:42)
[2022-07-28] MEDS: ASCORBIC ACID 500 MG TABLET PO SCH (07:42)
[2022-07-28] MEDS: DOCOSAHEXANOIC AC/EPA 1000 MG PO SCH (07:43)
[2022-07-28] MEDS: SEVELAMER CARBONATE 800 MG TABLET PO SCH ×3 (07:43→16:25)
[2022-07-28] MEDS: FUROSEMIDE 40 MG TABLET PO SCH ×2 (07:43→16:22)
[2022-07-28] MEDS: MULTIVITAMINS,THERAPEUT 1 TAB PO SCH (07:44)
[2022-07-28] MEDS: DULOXETINE 30 MG CAP PO SCH (07:44)
[2022-07-28] MEDS: LORATADINE 10 MG TAB PO SCH (07:44)
[2022-07-28] MEDS: LEFLUNOMIDE 20 MG PO SCH (07:45)
[2022-07-28] MEDS: CINACALCET 30 MG PO SCH (07:45)
[2022-07-28] MEDS: LIDOCAINE 4% PATCH TOP SCH (07:46)
[2022-07-28] MEDS: LOSARTAN POTASSIUM 50 MG TABLET PO SCH (07:47)
[2022-07-28] MEDS: HYDRALAZINE HCL 25 MG TABLET PO SCH (07:48)
[2022-07-28] MEDS: ISOSORBIDE DINIT 20 MG TAB PO SCH ×3 (07:48→19:18)
--- NOTE | 2022-07-28 07:51 | RAD REPORT ---
EXAM DESCRIPTION: RAD - Chest Single View - 07/28/2022 6:37 am CLINICAL HISTORY: Edema, shortness of breath COMPARISON: Portable 07/27/2022, portable 10/25/2019 TECHNIQUE: AP portable chest image was obtained 07/28/2022 6:37 am . FINDINGS: Interstitial pattern remains prominent when comparing back with 2019 study. Lung markings in the right base are slightly increased from the 07/27/2022 study. This may be atelectasis due to sh allow inspiration. Interstitial edema or infiltrate etiologies remain. No new consolidation. Heart size and vasculature are stable. Heart size is upper normal. No measurable pleural effusion and no pneumothorax. No acute bony abnormality seen. No acute aortic findings suspected. IMPRESSION: Interstitial edema or infiltrate pattern remains. Slight increase at the right base could be progression of disease or atelectasis. This can be monitor ed on subsequent imaging.
[2022-07-28] MEDS ORDERED: CEFTRIAXONE 1,000 MG in NA CHLORIDE 0.9% 50 ML IVPB SCH (08:00)
[2022-07-28] MEDS: TRAMADOL HCL 50 MG TAB PO PRN (09:57)
--- NOTE | 2022-07-28 11:47 | P.PN ---
Nephrology note: (S) Pt had an isolated low grade temp yesterday, also felt a bit nauseous, weaker yesterday with some lower SBP in the 100s. Feels better today, infectious w/u ordered by the primary team. (O) vitals reviewed in the EMR (Prior exam) General: Alert, Cooperative, Mild distress HEENT: Atraumatic, Normocephalic, EOMI Respiratory: Clear to auscultation bilaterally, Normal air movement Cardiovascular: Regular rate/rhythm, Normal S1 S2 Gastrointestinal: Soft and benign, Non-distended, No tenderness Musculoskeletal: No swelling, No contractures Ext: Lt UE AVF with thrill and bruit Back: Long midline back incision intact and mostly c/d Neurological: Normal speech, Normal tone, Normal affect Laboratory Data (last 24 hrs) Reviewed in the EMR Conclusions/Impression: 1. ESRD 2. Hypertensive CKD/ESRD 3. COPD, unspecified 4. RA with neg RF at this time 5 Degenerative disc disease 6. Secondary hyperparathyroidism due to CKD 7. Anemia 2nd to CKD, post surgical, GI bleeding, other 8. Abnormality of albumin 9. Fever unspecified -Will cont iHD on a TTS basis while here at rehab, see HD orders for details -Pre-dialysis labs reviewed, stable overall but will switch K bath to 2.0 meq/L -Febrile episode yesterday, BCx and swab from one area along her back incision with scant drainage taken, pt placed on gram positive and gram neg empiric coverage. Vanc LD given, will give 750 mg maintenance dose with HD today and check random level before 2nd post LD HD Sat and target 15-20. UA neg, CXR neg for PNA. Pt is on DMARDs for RA which do increase her risk for infection, procalcitonin elevated but no sig leukocytosis or left shift and she does not appear toxic. Will trend procalcitonin levels -Total corrected Ca lower but still just over ULN, did temp suspend active Vit D and re-checked PTH level which remains < 150, will cont home med Sensipar at lower dose for now but will avoid PTH < 100, cont phos binders. Suspended temp, nutritional Vit d as well -Did transfuse 1 unit PRBC on HD last for persistent Hb < 8.0 with symptomatic anemia despite IV iron and GEMMA doses. Response to that was sub optimal, no reports of melenic stools but pt is on Eliquis, did check FOBT which was positive. Did stop Eliquis and place on lower dose Heparin for DVT ppx. Did place on BID PPI for GI ppx, counts back down today but will hold off on transfusion just yet and recheck tmrw. May need to suspend Heparin and switch to sequential compression. GI coverage not available I am told. -BP soft yesterday, will d/c Hydralazine and lower doses of Coreg and Losartan -Albumin remains quite low, added Nephro protein supplements, monitor. -OT/PT per rehab program. Santos Garay MD, [facility]
[2022-07-28] MEDS: CEPHALEXIN 250 MG CAP PO SCH (16:55)
[2022-07-28] MEDS ORDERED: VANCOMYCIN 0.75 GM in NA CHLORIDE 0.9% 250 ML IVPB SCH (17:00)
[2022-07-28] MEDS ORDERED: VANCOMYCIN 1 GM in NA CHLORIDE 0.9% 250 ML IVPB SCH (17:00)
[2022-07-28] MEDS: carvediloL 12.5 MG TAB PO SCH (17:41)
[2022-07-28] MEDS: ATORVASTATIN 40 MG TAB PO SCH (19:18)
[2022-07-28] MEDS: DOXYCYCLINE 100 MG CAP PO SCH (19:18)
[2022-07-28] MEDS: DOCUSATE NA/SENNA CONC 1 TAB PO SCH ×2 (19:18→20:15)
[2022-07-28] MEDS: TRELEGY ELLIPTA 100 MCG IH SCH (19:19)
[2022-07-28] MEDS: NEPRO SHAKE 237 ML CAN PO SCH (19:19)
[2022-07-28] MEDS: INSULIN GLARGINE 100 UNIT/ML SQ SCH (20:05)
--- NOTE | 2022-07-29 00:36 | PN ---
Date of Progress Note: 07/28/2022 A pepa-ic-ptvd visit on patient, Wendy Ziegler. Subjective: Ms. Ziegler is doing much better today. She is awake, alert, laughing and sitting in a c hair beside the bed with the Speech pathologist working with her. As noted yesterday, she did have s ignificant somnolence and lethargy and required therapy to be held. She did have a low-grade fever a nd elevated white counts and was given 2 g of Rocephin and vancomycin and she is on a renal protocol for that. She also had severe anemia. She is followed by the Renal Service there. She has no new c omplaints. Review of Systems: No fevers or chills at this point. No significant pain in the back and thigh from when she does her therapy and that is on her surgical site. Otherwise, she does have some myalgias and arthralgias in her extremities. Physical Examination: Vital Signs: Blood pressure 160/69, pulse 88, respiratory rate 16, temperature 97.5, oxygen saturati on 95%. General: Ms. Ziegler is sitting in a chair, smiling. She finished her lunch and is working with [facility] pathologist. She said she is feeling much better. Lungs: She has good air movement. Extremities: No significant cyanosis or edema in the extremities. No significant drainage at the powell rgical site. Laboratory Studies: White blood cell count 12.1, is down from 12.8 yesterday. Hemoglobin down to 7. 2, down from 8.0 yesterday. Her neutrophils are normal at 64.2. Glucose ranged from 86-173. Her pr ocalcitonin today is elevated at 1.97 and again she is on vancomycin and Rocephin. Yesterday her [place] was 1.0. Repeat urinalysis yesterday was normal except for 1+ protein and she had negative COVI D test yesterday. Peripheral smear was okay. X-ray Imaging: Head CT scan done yesterday showed no acute ischemic or hemorrhagic findings. The st ud was negative for any of that. There was atrophy and chronic ischemic change, which was minimal. She had chest x-ray done twice yesterday and today. The studies did show some interstitial edema or infiltrative pattern with right lung base slightly increased, may be due to atelectasis or shallow i nspiration. There is interstitial edema or infiltrate etiology as a possibility. She is on nebulize r for that. Medications: Currently the Rocephin 2 g every 48 hours and vancomycin per protocol as per Renal prot ocol. Now on Keflex 500 mg every 12 hours per the Renal Service. Aspirin 81 mg daily. Allopurinol 100 mg daily. Vitamin C 500 mg daily. Lipitor 40 mg at bedtime. Coreg 12.5 mg twice daily. Flexer il 5 mg twice daily. Vibramycin 100 mg twice daily orally. Cymbalta 30 mg daily. Nepro 237 mL at b edtime. Lasix 40 mg twice daily. Fish oil 1000 mg daily. Glucagon as needed. Heparin 5000 units s ubcutaneous every 12 hours. Lidocaine patch twice daily. Claritin 10 mg daily. Cozaar 50 mg twice daily. Antivert 25 mg every 8 hours. Melatonin 3 mg at bedtime. Percocet 5/325 every 4 hours as ne eded. Zofran 4 mg q.6 hours as needed. Protonix 40 mg twice a day. Senokot-S 2 tablets at bedtime. Renvela 800 mg 3 times daily. Ultram 50 mg every 4 hours. Nephro-Ronan 1 tablet daily. Current Level Of Functioning: Today she was able to mobilize wheelchair outdoors, able to self prope l wheelchair independently while in hospital. She did cover over 300 feet outdoors with rest breaks needed. She did ascend and descend a ramp. She did require contact guard assistance. She did 6 sit to stand with a rolling walker with supervision. She tolerated 2.5 minutes of standing to reach out side of her range with good tolerance. Completed marching in place with a rolling walker and lift he r leg to height of a cone for a sense of pain to improve her ability to transfer into a tub. Progress toward rehabilitation goals: She is making very good progress now towards rehabilitation af ter a brief setback yesterday. Assessment And Plan: Ms. Ziegler is admitted to the rehabilitation unit with thoracic compression and status post decompression. She does have potential infection, which is now improving after she rece ived IV antibiotics and oral antibiotics. She does have end-stage renal disease, on hemodialysis. S he does have deep vein thrombosis risk, on heparin for that. She does have again risk of aspiration pneumonia and she is being followed by x-ray. There are some infiltrates. She is on nebulizer treat ments. She has a risk of depression and treatment as well. She does have significant anemia that is followed by the Renal Service and she is receiving iron and blood transfusions as appropriate. Also end-stage renal disease on hemodialysis on Monday, , Monday, again managed by the Renal S len. Comorbid conditions that continue to impact rehabilitation process: As noted, end-stage renal diseas e on hemodialysis as well as apparent chronic infection that is now improving. Pulmonary infiltrate is treated with diuresis and nebulizers. In addition depression, treated with antidepressants and ri sk of deep vein thrombosis and again severe anemia. LB/MODL Voice ID: [id number] Report ID: [id number]
[2022-07-29] MEDS: CEPHALEXIN 250 MG CAP PO SCH (05:05)
[2022-07-29] MEDS: carvediloL 12.5 MG TAB PO SCH ×2 (05:05→17:39)
[2022-07-29 06:11] LABS: Absolute Lymphocytes (CBC) 1.8 K/uL (0.7-4.9); Lymphocytes % 16.7 % (15.3-44.8); MCV 97.7 fL (80-100); MPV 7.8 fL (7.6-11.3); RBC Red Blood Cell Count 2.36 M/uL (3.86-4.86)
[2022-07-29] MEDS: INSULIN -REGULAR HUMAN 50 UNIT/0.5 ML ML SQ SCH ×4 (07:30→19:48)
[2022-07-29] MEDS: LEFLUNOMIDE 20 MG PO SCH (08:09)
[2022-07-29] MEDS: LIDOCAINE 4% PATCH TOP SCH (08:09)
[2022-07-29] MEDS: CINACALCET 30 MG PO SCH (08:09)
[2022-07-29] MEDS: LINACLOTIDE 290 MG PO SCH (08:09)
[2022-07-29] MEDS: LORATADINE 10 MG TAB PO SCH (08:09)
[2022-07-29] MEDS: allopurinoL 100 MG TAB PO SCH (08:10)
[2022-07-29] MEDS: ISOSORBIDE DINIT 20 MG TAB PO SCH ×3 (08:10→19:27)
[2022-07-29] MEDS: FUROSEMIDE 40 MG TABLET PO SCH ×2 (08:10→17:38)
[2022-07-29] MEDS: DOCOSAHEXANOIC AC/EPA 1000 MG PO SCH (08:10)
[2022-07-29] MEDS: LOSARTAN POTASSIUM 50 MG TABLET PO SCH (08:10)
[2022-07-29] MEDS: SEVELAMER CARBONATE 800 MG TABLET PO SCH ×3 (08:11→17:38)
[2022-07-29] MEDS: ASCORBIC ACID 500 MG TABLET PO SCH (08:11)
[2022-07-29] MEDS: ASPIRIN EC 81 MG TAB PO SCH (08:11)
[2022-07-29] MEDS: MULTIVITAMINS,THERAPEUT 1 TAB PO SCH (08:11)
[2022-07-29] MEDS: DOXYCYCLINE 100 MG CAP PO SCH ×2 (08:11→19:27)
[2022-07-29] MEDS: DULOXETINE 30 MG CAP PO SCH (08:11)
[2022-07-29] MEDS: PANTOPRAZOLE 40MG TABLET PO SCH ×2 (08:11→17:39)
[2022-07-29] MEDS: TRAMADOL HCL 50 MG TAB PO PRN (08:12)
[2022-07-29] MEDS: CYCLOSPORINE 0.05% OPTH SCH ×2 (08:14→19:42)
--- NOTE | 2022-07-29 08:44 | P.RH.PN ---
Vital Signs: Last Vital Signs Temp 97.6 F 07/29/22 08:00 Pulse 93 H 07/29/22 08:10 Resp 18 07/29/22 08:00 BP 147/67 H 07/29/22 08:10 Pulse Ox 91 07/29/22 08:00 Laboratory: Laboratory Last Values WBC 10.60 K/uL (4.3-10.9) 07/29/22 05:52 RBC 2.36 M/uL (3.86-4.86) L 07/29/22 05:52 Hgb 7.6 g/dL (12.0-15.0) L 07/29/22 05:52 Hct 23.0 % (36.0-45.0) L 07/29/22 05:52 MCV 97.7 fL (80-100) 07/29/22 05:52 MCH 32.3 pg (27.0-35.0) 07/29/22 05:52 MCHC 33.0 g/dL (32.0-36.0) 07/29/22 05:52 RDW 22.6 % (12.1-15.2) H 07/29/22 05:52 Plt Count 488 K/uL (152-406) H 07/29/22 05:52 MPV 7.8 fL (7.6-11.3) 07/29/22 05:52 Neutrophils % 55.6 % (41.7-73.7) 07/29/22 05:52 Lymphocytes % 16.7 % (15.3-44.8) 07/29/22 05:52 Monocytes % 13.2 % (3.3-12.3) H 07/29/22 05:52 Eosinophils % 13.3 % (0-4.4) H 07/29/22 05:52 Basophils % 1.2 % (0-1.3) 07/29/22 05:52 Absolute Neutrophils 5.9 K/uL (1.8-8.0) 07/29/22 05:52 Segmented Neutrophils 47 % (40-80) 07/25/22 04:21 Absolute Lymphocytes 1.8 K/uL (0.7-4.9) 07/29/22 05:52 Lymphocytes 17 % (15-42) 07/25/22 04:21 Monocytes 13 % (0-10) H 07/25/22 04:21 Absolute Monocytes 1.4 K/uL (0.1-1.3) H 07/29/22 05:52 Eosinophils 21 % (0-3) H 07/25/22 04:21 Absolute Eosinophils 1.4 K/uL (0-0.5) H 07/29/22 05:52 Basophils 1 % (0-1) 07/25/22 04:21 Absolute Basophils 0.1 K/uL (0-0.5) 07/29/22 05:52 Nucleated RBCs 1 /100WBC 07/25/22 04:21 Reactive Lymphocytes 1 % 07/25/22 04:21 Platelet Estimate Incr 07/27/22 16:56 Polychromasia 2+ 07/25/22 04:21 Anisocytosis 2+ 07/27/22 16:56 Morphology Comment Noted (NOT SEEN) 07/27/22 16:56 pH 7.40 (7.35-7.45) 07/24/22 08:35 pCO2 44.2 mmHG (35-45) 07/24/22 08:35 pO2 87.4 mmHG (75-100) 07/24/22 08:35 HCO3 27.1 mmol/L (22-28) 07/24/22 08:35 Base Excess 2.7 mmol/L 07/24/22 08:35 Oxyhemoglobin 93.3 % (94-97) L 07/24/22 08:35 ABG O2 Sat (Measured) 94.3 % (92-98.5) 07/24/22 08:35 ABG Carboxyhemoglobin 0.4 % (0-1.5) 07/24/22 08:35 ABG Methemoglobin 0.7 % (0-1.5) 07/24/22 08:35 Other Total Hgb 12.0 g/dl (12-18) 07/24/22 08:35 Inspired O2 21.0 % 07/24/22 08:35 Sodium 134 mmol/L (136-145) L 07/28/22 04:09 Potassium 4.8 mmol/L (3.5-5.1) 07/28/22 04:09 Chloride 101 mmol/L (98-107) 07/28/22 04:09 Carbon Dioxide 27 mmol/L (21-32) 07/28/22 04:09 Anion Gap 10.8 mEq/L (5.0-15.0) 07/28/22 04:09 BUN 63 mg/dL (7-18) H 07/28/22 04:09 Creatinine 5.30 mg/dL (0.55-1.3) H* 07/28/22 04:09 Est GFR (CKD-EPI) 8 ml/min (=/>90) L 07/28/22 04:09 Glucose 103 mg/dL (74-106) 07/28/22 04:09 POC Glucose 218 mg/dL (65-120) H 07/29/22 07:23 Hemoglobin A1c 6.0 % (4.2-6.3) 07/19/22 04:01 Lactic Acid 1.0 mmol/L (0.4-2.0) 07/27/22 16:56 Calcium 8.7 mg/dL (8.5-10.1) 07/28/22 04:09 Phosphorus 3.1 mg/dL (2.5-4.9) 07/28/22 04:09 Magnesium 2.5 mg/dL (1.8-2.4) H 07/28/22 04:09 Total Bilirubin 0.3 mg/dL (0.2-1.0) 07/19/22 04:01 AST 17 U/L (15-37) 07/19/22 04:01 ALT < 10 U/L (12-78) L 07/19/22 04:01 Alkaline Phosphatase 264 U/L (45-117) H 07/19/22 04:01 Lactate Dehydrogenase 226 U/L (84-246) 07/27/22 16:56 NT-Pro-B Natriuret Pep 72650 pg/mL (<125) H 07/19/22 04:01 Serum Total Protein 5.6 g/dL (6.4-8.2) L 07/19/22 04:01 Albumin 1.9 g/dL (3.4-5.0) L 07/28/22 04:09 Globulin 3.6 g/dL (2.3-3.5) H 07/19/22 04:01 Albumin/Globulin Ratio 0.6 (1.1-1.8) L 07/19/22 04:01 Prealbumin 14.6 mg/dL (20-40) L 07/28/22 04:09 Procalcitonin 2.19 ng/mL (<0.050) H 07/29/22 05:52 PTH Intact 126.4 pg/mL (18.4-80.1) H 07/21/22 04:06 Urine Color Yellow (Yellow) 07/27/22 18:10 Urine Clarity Clear (Clear) 07/27/22 18:10 Urine pH 5.5 (5.0-7.0) 07/27/22 18:10 Ur Specific [place] 1.012 (1.005-1.030) 07/27/22 18:10 Glucose (UA)(Auto) Negative (Negative) 07/27/22 18:10 Urine Ketones Negative (Negative) 07/27/22 18:10 Urine Blood Negative (Negative) 07/27/22 18:10 Urine Nitrite Negative (Negative) 07/27/22 18:10 Urine Bilirubin Negative (Negative) 07/27/22 18:10 Urine Urobilinogen Normal (Normal) 07/27/22 18:10 Ur Leukocyte Esterase Negative Ronny/uL (Negative) 07/27/22 18:10 Urine RBC <5 /HPF (None Seen) 07/27/22 18:10 Urine WBC <5 /HPF (<5) 07/27/22 18:10 Ur Squamous Epith Cells <5 /HPF (None Seen) 07/27/22 18:10 U Non-Squamous Epi Cells <5 /HPF (None Seen) 07/13/22 13:55 Urine Bacteria <20 /HPF (<20) 07/27/22 18:10 Urine Total Protein 1+ (Negative) H 07/27/22 18:10 Rheumatoid Factor Neg (NEG) 07/15/22 06:14 SARS-CoV-2 Rap RNA(RT-PCR) Negative (NEGATIVE) 07/27/22 06:45 Smear Scan Ok (OK) 07/27/22 16:56 ABO/Rh Cancelled 07/21/22 Unknown Solid Phase Ab Screen Cancelled 07/21/22 Unknown Crossmatch See Detail 07/21/22 Unknown Weight: 197 lb 4.8 oz Wound Present: No Closed Surgical Incision Present: Yes Negative Pressure Wound Therapy Present: No Physician Update: She is mildly depressed about having to go to SNF. She is doing better from the stand point of her infection. She will get a unit of blood with HD. She may get to min assistance with toileting. Walking 90' with minimum assistance. Summary: Patient's care plan and senior care goals have been reviewed and revised as necessary. Please see the Rehabilitation Signature page for all necessary signatures.
[2022-07-29] MEDS: HEPARIN 5000 UNIT/ML 1 ML VIAL SQ SCH ×2 (09:02→20:00)
[2022-07-29] MEDS: Oxycodone HCl/Acetaminophen 1 TAB TAB PO PRN ×2 (09:16→13:36)
[2022-07-29] MEDS: GABAPENTIN 300 MG CAP PO SCH ×2 (10:50→19:26)
--- NOTE | 2022-07-29 12:00 | P.PN ---
Nephrology note: (S) Pt has not had any further fevers, feels better overall, pt loss her IV and is a difficult stick so rehab staff asked for pt to be switched to PO Abx which were empirically ordered after the febrile episode. (O) vitals reviewed in the EMR (Prior exam) General: Alert, Cooperative, Mild distress HEENT: Atraumatic, Normocephalic, EOMI Respiratory: Clear to auscultation bilaterally, Normal air movement Cardiovascular: Regular rate/rhythm, Normal S1 S2 Gastrointestinal: Soft and benign, Non-distended, No tenderness Musculoskeletal: No swelling, No contractures Ext: Lt UE AVF with thrill and bruit Back: Long midline back incision intact and mostly c/d Neurological: Normal speech, Normal tone, Normal affect Laboratory Data (last 24 hrs) Reviewed in the EMR Conclusions/Impression: 1. ESRD 2. Hypertensive CKD/ESRD 3. COPD, unspecified 4. RA with neg RF at this time 5 Degenerative disc disease 6. Secondary hyperparathyroidism due to CKD 7. Anemia 2nd to CKD, post surgical, GI bleeding, other 8. Abnormality of albumin 9. Fever unspecified -Will cont iHD on a TTS basis while here at rehab, see HD orders for details -Pre-dialysis labs reviewed, stable overall but did yesterday switch K bath to 2.0 meq/L -Febrile episode Wed, isolated, afebrile since, BCx and swab from one area along her back incision with scant drainage taken, pt placed on gram positive and gram neg empiric coverage. Vanc LD given, but switched to PO Abx as pt lost her IV. Wound cx with GNR, will switch Keflex to Cefidinir, a 3rd gen PO cephalosporin and cont Doxy as well UA neg, CXR neg for PNA. Pt is on DMARDs for RA which do increase her risk for infection, procalcitonin elevated but no sig leukocytosis or left shift and she does not appear toxic. Will trend procalcitonin levels as remains elevated -Total corrected Ca lower but still just over ULN, did temp suspend active Vit D and re-checked PTH level which remains < 150, will cont home med Sensipar at lower dose for now but will avoid PTH < 100, cont phos binders. Suspended temp, nutritional Vit d as well -Did transfuse 1 unit PRBC on HD last Thurs for persistent Hb < 8.0 with symptomatic anemia despite IV iron and GEMMA doses. Response to that was sub optimal, no reports of melenic stools but pt is on Eliquis, did check FOBT which was positive. Did stop Eliquis and place on lower dose Heparin for DVT ppx. Did place on BID PPI for GI ppx, counts back down yesterday but up marginally today, will hold off on transfusion just yet and recheck tmrw. May need to suspend Heparin and switch to sequential compression if counts drop any lower. GI coverage not available I am told. -BP soft Wed, did d/c Hydralazine and lower doses of Coreg and Losartan -Albumin remains quite low, added Nephro protein supplements, monitor. -OT/PT per rehab program. Santos Garay MD, [facility]
[2022-07-29] MEDS: CEFDINIR 300 MG CAP PO SCH (13:37)
[2022-07-29 18:00] LABS: HBsAG Nonreactive (Nonreactive)
[2022-07-29] MEDS: ATORVASTATIN 40 MG TAB PO SCH (19:27)
[2022-07-29] MEDS: NEPRO SHAKE 237 ML CAN PO SCH (19:28)
[2022-07-29] MEDS: EPOETIN ALFA 10,000 UNIT/ML VIAL SQ SCH (19:35)
[2022-07-29] MEDS: DOCUSATE NA/SENNA CONC 1 TAB PO SCH (19:49)
[2022-07-29] MEDS: TRELEGY ELLIPTA 100 MCG IH SCH (19:51)
[2022-07-29] MEDS: INSULIN GLARGINE 100 UNIT/ML SQ SCH (19:53)
[2022-07-30] MEDS: TRAMADOL HCL 50 MG TAB PO PRN (04:37)
[2022-07-30] MEDS: carvediloL 12.5 MG TAB PO SCH ×2 (05:09→17:08)
[2022-07-30 05:50] LABS: Absolute Lymphocytes (CBC) 2.2 K/uL (0.7-4.9); Hematocrit 22.8 % (36.0-45.0); Lymphocytes % 20.8 % (15.3-44.8); MPV 8.1 fL (7.6-11.3); RBC Red Blood Cell Count 2.33 M/uL (3.86-4.86)
[2022-07-30] MEDS: LINACLOTIDE 290 MG PO SCH (07:30)
[2022-07-30] MEDS: INSULIN -REGULAR HUMAN 50 UNIT/0.5 ML ML SQ SCH ×4 (07:30→20:24)
[2022-07-30] MEDS: HEPARIN 5000 UNIT/ML 1 ML VIAL SQ SCH ×2 (07:31→18:15)
[2022-07-30] MEDS: CYCLOSPORINE 0.05% OPTH SCH ×2 (07:31→20:24)
[2022-07-30] MEDS: LOSARTAN POTASSIUM 50 MG TABLET PO SCH (08:00)
[2022-07-30] MEDS: Oxycodone HCl/Acetaminophen 1 TAB TAB PO PRN ×2 (08:23→23:52)
[2022-07-30] MEDS: PANTOPRAZOLE 40MG TABLET PO SCH ×2 (08:23→16:41)
[2022-07-30] MEDS: LEFLUNOMIDE 20 MG PO SCH (08:59)
[2022-07-30] MEDS: CINACALCET 30 MG PO SCH (08:59)
[2022-07-30] MEDS: ISOSORBIDE DINIT 20 MG TAB PO SCH ×3 (09:00→20:25)
[2022-07-30] MEDS: LIDOCAINE 4% PATCH TOP SCH (09:00)
[2022-07-30] MEDS: allopurinoL 100 MG TAB PO SCH (09:01)
[2022-07-30] MEDS: CEFDINIR 300 MG CAP PO SCH (09:01)
[2022-07-30] MEDS: GABAPENTIN 300 MG CAP PO SCH ×2 (09:01→20:24)
[2022-07-30] MEDS: SEVELAMER CARBONATE 800 MG TABLET PO SCH ×3 (09:01→16:40)
[2022-07-30] MEDS: LORATADINE 10 MG TAB PO SCH (09:01)
[2022-07-30] MEDS: DULOXETINE 30 MG CAP PO SCH (09:02)
[2022-07-30] MEDS: FUROSEMIDE 40 MG TABLET PO SCH ×2 (09:02→16:40)
[2022-07-30] MEDS: MULTIVITAMINS,THERAPEUT 1 TAB PO SCH (09:04)
[2022-07-30] MEDS: ASCORBIC ACID 500 MG TABLET PO SCH (09:04)
[2022-07-30] MEDS: DOXYCYCLINE 100 MG CAP PO SCH ×2 (09:04→20:24)
[2022-07-30] MEDS: DOCOSAHEXANOIC AC/EPA 1000 MG PO SCH (09:04)
[2022-07-30] MEDS: ASPIRIN EC 81 MG TAB PO SCH (09:04)
[2022-07-30] MEDS: INSULIN GLARGINE 100 UNIT/ML SQ SCH (20:23)
[2022-07-30] MEDS: TRELEGY ELLIPTA 100 MCG IH SCH (20:24)
[2022-07-30] MEDS: DOCUSATE NA/SENNA CONC 1 TAB PO SCH (20:24)
[2022-07-30] MEDS: ATORVASTATIN 40 MG TAB PO SCH (20:27)
[2022-07-30] MEDS: NEPRO SHAKE 237 ML CAN PO SCH (20:30)
[2022-07-31] MEDS: carvediloL 12.5 MG TAB PO SCH ×2 (05:38→17:00)
[2022-07-31] MEDS: INSULIN -REGULAR HUMAN 50 UNIT/0.5 ML ML SQ SCH ×4 (07:30→20:22)
[2022-07-31] MEDS: ASPIRIN EC 81 MG TAB PO SCH (07:36)
[2022-07-31] MEDS: DULOXETINE 30 MG CAP PO SCH (07:36)
[2022-07-31] MEDS: LORATADINE 10 MG TAB PO SCH (07:36)
[2022-07-31] MEDS: PANTOPRAZOLE 40MG TABLET PO SCH ×2 (07:36→16:36)
[2022-07-31] MEDS: LINACLOTIDE 290 MG PO SCH (07:37)
[2022-07-31] MEDS: FUROSEMIDE 40 MG TABLET PO SCH ×2 (07:37→16:48)
[2022-07-31] MEDS: CINACALCET 30 MG PO SCH (07:38)
[2022-07-31] MEDS: CYCLOSPORINE 0.05% OPTH SCH ×2 (07:38→20:21)
[2022-07-31] MEDS: LEFLUNOMIDE 20 MG PO SCH (07:38)
[2022-07-31] MEDS: Oxycodone HCl/Acetaminophen 1 TAB TAB PO PRN ×2 (07:39→15:09)
[2022-07-31] MEDS: HEPARIN 5000 UNIT/ML 1 ML VIAL SQ SCH ×2 (07:41→18:16)
[2022-07-31] MEDS: ISOSORBIDE DINIT 20 MG TAB PO SCH ×3 (09:03→20:21)
[2022-07-31] MEDS: allopurinoL 100 MG TAB PO SCH (09:03)
[2022-07-31] MEDS: GABAPENTIN 300 MG CAP PO SCH ×2 (09:03→20:17)
[2022-07-31] MEDS: SEVELAMER CARBONATE 800 MG TABLET PO SCH ×3 (09:03→16:48)
[2022-07-31] MEDS: CEFDINIR 300 MG CAP PO SCH (09:03)
[2022-07-31] MEDS: DOXYCYCLINE 100 MG CAP PO SCH (09:04)
[2022-07-31] MEDS: DOCOSAHEXANOIC AC/EPA 1000 MG PO SCH (09:04)
[2022-07-31] MEDS: ASCORBIC ACID 500 MG TABLET PO SCH (09:04)
[2022-07-31] MEDS: LIDOCAINE 4% PATCH TOP SCH (09:05)
[2022-07-31] MEDS: LOSARTAN POTASSIUM 50 MG TABLET PO SCH (10:28)
[2022-07-31] MEDS: TRAMADOL HCL 50 MG TAB PO PRN (10:30)
[2022-07-31] MEDS: MULTIVITAMINS,THERAPEUT 1 TAB PO SCH (10:30)
[2022-07-31] MEDS ORDERED: ERTAPENEM SODIUM 1 GM VIAL IM SCH (11:00)
[2022-07-31] MEDS ORDERED: ERTAPENEM SODIUM 1 GM VIAL IVPB SCH (12:49)
[2022-07-31] MEDS ORDERED: ERTAPENEM NA 0.5 GM in NA CHLORIDE 0.9% 100 ML IVPB SCH (14:00)
[2022-07-31] MEDS: Meropenem 500 MG in NA CHLORIDE 0.9% 100 ML IV SCH (16:33)
[2022-07-31] MEDS: DOCUSATE NA/SENNA CONC 1 TAB PO SCH (20:20)
[2022-07-31] MEDS: TRELEGY ELLIPTA 100 MCG IH SCH (20:21)
[2022-07-31] MEDS: ATORVASTATIN 40 MG TAB PO SCH (20:21)
[2022-07-31] MEDS: INSULIN GLARGINE 100 UNIT/ML SQ SCH (20:22)
[2022-07-31] MEDS: NEPRO SHAKE 237 ML CAN PO SCH (20:23)
[2022-08-01] MEDS: Oxycodone HCl/Acetaminophen 1 TAB TAB PO PRN ×5 (01:28→17:33)
[2022-08-01 04:26] LABS: Absolute Lymphocytes (CBC) 1.6 K/uL (0.7-4.9); Hematocrit 24.3 % (36.0-45.0); Lymphocytes % 16.9 % (15.3-44.8); MCV 98.9 fL (80-100); MPV 7.5 fL (7.6-11.3); RBC Red Blood Cell Count 2.45 M/uL (3.86-4.86)
[2022-08-01 04:56] LABS: Phosphorus 4.9 mg/dL (2.5-4.9)
[2022-08-01 05:15] LABS: Anisocytosis 2+; Blood Morphology Comment NOTED (NOT SEEN); Macrocytosis 1+; Platelet Estimate ADEQ; Polychromasia 1+
[2022-08-01] MEDS: carvediloL 12.5 MG TAB PO SCH ×2 (05:21→17:32)
[2022-08-01] MEDS: LINACLOTIDE 290 MG PO SCH (06:51)
[2022-08-01] MEDS: CYCLOSPORINE 0.05% OPTH SCH ×2 (06:51→20:13)
[2022-08-01] MEDS: PANTOPRAZOLE 40MG TABLET PO SCH ×2 (06:51→17:29)
[2022-08-01] MEDS: INSULIN -REGULAR HUMAN 50 UNIT/0.5 ML ML SQ SCH ×4 (07:02→20:15)
[2022-08-01] MEDS: allopurinoL 100 MG TAB PO SCH (07:08)
[2022-08-01] MEDS: LORATADINE 10 MG TAB PO SCH (07:08)
[2022-08-01] MEDS: CINACALCET 30 MG PO SCH (07:08)
[2022-08-01] MEDS: ASPIRIN EC 81 MG TAB PO SCH (07:08)
[2022-08-01] MEDS: LEFLUNOMIDE 20 MG PO SCH (07:08)
[2022-08-01] MEDS: FUROSEMIDE 40 MG TABLET PO SCH ×2 (07:09→17:32)
[2022-08-01] MEDS: HEPARIN 5000 UNIT/ML 1 ML VIAL SQ SCH ×2 (07:18→20:00)
[2022-08-01] MEDS: DOCOSAHEXANOIC AC/EPA 1000 MG PO SCH (08:00)
[2022-08-01] MEDS: DULOXETINE 30 MG CAP PO SCH (08:33)
[2022-08-01] MEDS: MULTIVITAMINS,THERAPEUT 1 TAB PO SCH (08:34)
[2022-08-01] MEDS: SEVELAMER CARBONATE 800 MG TABLET PO SCH ×3 (08:34→17:29)
[2022-08-01] MEDS: ASCORBIC ACID 500 MG TABLET PO SCH (08:34)
[2022-08-01] MEDS: GABAPENTIN 300 MG CAP PO SCH ×2 (08:34→20:14)
[2022-08-01] MEDS: LIDOCAINE 4% PATCH TOP SCH (09:14)
[2022-08-01] MEDS: ISOSORBIDE DINIT 20 MG TAB PO SCH ×3 (10:11→20:14)
[2022-08-01] MEDS: LOSARTAN POTASSIUM 50 MG TABLET PO SCH (10:12)
[2022-08-01] MEDS: TRAMADOL HCL 50 MG TAB PO PRN (10:42)
--- NOTE | 2022-08-01 15:48 | P.PN ---
Nephrology note: (S) Pt's Abx switched over the weekend based on final culture results. Pt has no acute complaints, seen earlier this AM, delayed entry note. (O) vitals reviewed in the EMR General: Alert, Cooperative, Mild distress HEENT: Atraumatic, Normocephalic, EOMI Respiratory: Clear to auscultation bilaterally, Normal air movement Cardiovascular: Regular rate/rhythm, Normal S1 S2 Gastrointestinal: Soft and benign, Non-distended, No tenderness Musculoskeletal: No swelling, No contractures Ext: Lt UE AVF with thrill and bruit Back: Long midline back incision intact and mostly c/d Neurological: Normal speech, Normal tone, Normal affect Laboratory Data (last 24 hrs) Reviewed in the EMR Conclusions/Impression: 1. ESRD 2. Hypertensive CKD/ESRD 3. COPD, unspecified 4. RA with neg RF at this time 5 Degenerative disc disease 6. Secondary hyperparathyroidism due to CKD 7. Anemia 2nd to CKD, post surgical, GI bleeding, other 8. Abnormality of albumin 9. Fever unspecified last week. 10. Pseudomonas and Proteus positive wound culture -Will cont iHD on a TTS basis while here at rehab, see HD orders for details -Pre-dialysis labs reviewed, stable overall -Febrile episode last Wed, isolated, afebrile since, BCx and swab from one area along her back incision with scant drainage taken, pt placed on gram positive and gram neg empiric coverage. Vanc LD given, but switched to PO Abx as pt lost her IV. Cultures came back showing MDR Pseudomonas and Proteus, switched to IV meropenem 500 mg q24h UA neg, CXR neg for PNA. Pt is on DMARDs for RA which do increase her risk for infection, procalcitonin initially elevated but no sig leukocytosis or left shift. -Total corrected Ca remain mildly elevated, did prev temp suspend active Vit D and re-checked PTH level which remains < 150, will cont home med Sensipar at lower dose for now but will avoid PTH < 100, cont phos binders. Suspended temp, nutritional Vit d as well -Did transfuse 1 unit PRBC on HD week before last for persistent Hb < 8.0 with symptomatic anemia despite IV iron and GEMMA doses. Response to that was sub optimal, no reports of melenic stools but pt is on Eliquis, did check FOBT which was positive. Did stop Eliquis and place on lower dose Heparin for DVT ppx. Did place on BID PPI for GI ppx, counts remain low but have been able to hold off on additional transfusion. -BP soft last week, did d/c Hydralazine and lowered doses of Coreg and Losartan and BP acceptable this AM. -Albumin remains quite low, added Nephro protein supplements, monitor. -OT/PT per rehab program. Possible discharge to SNF later this week Santos Garay MD, [facility]
[2022-08-01] MEDS: Meropenem 500 MG in NA CHLORIDE 0.9% 100 ML IV SCH (17:28)
[2022-08-01] MEDS: EPOETIN ALFA 10,000 UNIT/ML VIAL SQ SCH (17:44)
[2022-08-01] MEDS: TRELEGY ELLIPTA 100 MCG IH SCH (20:13)
[2022-08-01] MEDS: NEPRO SHAKE 237 ML CAN PO SCH (20:14)
[2022-08-01] MEDS: ATORVASTATIN 40 MG TAB PO SCH (20:14)
[2022-08-01] MEDS: DOCUSATE NA/SENNA CONC 1 TAB PO SCH (20:14)
[2022-08-01] MEDS: INSULIN GLARGINE 100 UNIT/ML SQ SCH (20:15)
--- NOTE | 2022-08-01 22:57 | PN ---
Date of Progress Note: 08/01/2022 This is a pzfo-ap-aais progress note visit for patient, Wendy Ziegler. Subjective: Ms. Ziegler is doing much better. Again today she is in the gym doing therapy. Denies a ny significant pain except that she is transferring. Pain is in the lumbar region where she had surg randell, but there are pain patches there. No significant drainage or any other issues. Mild muscle spa sms in the area. No other positives. Review of Systems: As noted, some pain in the lower back and spasms, but doing much better from that standpoint. Her mo od is much better. She is more alert. She denies any other positives such as constipation or urinar y tract issues. She denies any fevers or chills. Physical Examination: Vital Signs: Blood pressure 134/64, pulse 79, respiratory rate 18, temperature is 97.4, oxygen satur ation 94% on room air. General: Ms. Ziegler is sitting in the chair in the gym doing therapy. HEENT: She is normocephalic, atraumatic. Sclerae anicteric. Oropharynx is moist. Neck: Supple. Chest: Clear. Heart: Regular. Extremities: No significant edema. Skin: She does have good hemostasis on the surgical site in the back. Laboratory Studies: Today white blood cell count is normal at 9.5, hemoglobin is 8.0, and platelets 478. Blood sugars ranged from 145-210. Procalcitonin slightly decreased to 1.24 today, it was 2.05 on the 5th that is 2 days ago. Creatinine 5.18. Tomorrow is hemodialysis today. X-ray Imaging: No new x-rays or imaging. Medications: Unchanged compared to the last visit, except she is now switched back by the Renal Serv ice to intravenous antibiotics. She had received Rocephin and vancomycin earlier as she had a fever, this was earlier last week and now is back on IV antibiotics after she had a brief stint of oral ant ibiotics. She is also on allopurinol 100 mg daily; vitamin C 500 mg daily; aspirin 81 mg daily; Lipi tor 40 mg at bedtime; Coreg 12.5 mg twice daily; Lipitor 40 mg at bedtime; Flexeril 5 mg twice daily; duloxetine 30 mg daily; Nepro shakes 237 mL at bedtime; Retacrit 10,000 units with hemodialysis on , , and Monday; fish oil 1000 mg daily; Lasix 40 mg twice daily; gabapentin 300 mg tw ice daily; Semglee 20 units at bedtime; Isordil 20 mg 3 times daily; Claritin 10 mg daily; Cozaar 50 mg daily; meclizine 25 mg every 8 hours; melatonin 3 mg at bedtime, and she is now on meropenem 500 m g every 24 hours. It should be noted that her cultures did grow on the 2nd Pseudomonas aeruginosa an d Proteus mirabilis and those bacteria are susceptible to meropenem and she is on that and guided by the Renal Service. Zofran 4 mg every 6 hours as needed, Percocet 5/325 every 4 hours as needed, Prot precious 40 mg at bedtime, Senokot-S 2 tablets at bedtime, Renvela 800 mg 3 times daily, tramadol 50 mg e very 4 hours, and Nephro-Ronan 1 tablet daily. Current Functional Status: Currently bed mobility was performed with stand and pivot transfers indep endently from wheelchair to chair. She ambulated 90 feet with wheelchair with contact guard assistan ce. Progress towards rehabilitation goals: She is making much better progress today and just at the end of last week, towards all of her goals of becoming independent with transfers, mobilizing also distan niko and performing her activities of daily living. Assessment: Ms. Ziegler is a 67-year-old patient with thoracic spinal surgery for decompression. She has multiple comorbidities including end-stage renal disease on hemodialysis. She has malnutrition and significant anemia. She had ongoing infection potentially impacting the spinal region as culture s from her wound in the spine grew bacteria as noted above susceptible to meropenem and she is on rosie t. She has been afebrile now. She also has depression and she is on antidepressant. She has insomn ia. She has risk of deep vein thrombosis and she is on medication for that. In addition to gout cain ng treated with allopurinol and dyslipidemia being treated with Lipitor and multiple antihypertensive s for high blood pressure. Comorbidities that continue to impact her rehab process: She does have ongoing infection that is cur rently being treated with IV antibiotics. She has end-stage renal disease, being addressed with hemo dialysis on Monday, , Monday and deep vein thrombosis risk is there as indicated as well a s depression and she is on antidepressant and significant pain managed by multiple medications for pain and neuromodulators. GUNJAN/TONY Voice ID: [id number] Report ID: [id number]
[2022-08-02] MEDS: Oxycodone HCl/Acetaminophen 1 TAB TAB PO PRN ×4 (03:52→16:52)
[2022-08-02] MEDS: carvediloL 12.5 MG TAB PO SCH ×2 (05:11→17:54)
[2022-08-02] MEDS: PANTOPRAZOLE 40MG TABLET PO SCH ×2 (07:11→16:52)
[2022-08-02] MEDS: LINACLOTIDE 290 MG PO SCH (07:12)
[2022-08-02] MEDS: CYCLOSPORINE 0.05% OPTH SCH ×2 (07:12→20:29)
[2022-08-02] MEDS: allopurinoL 100 MG TAB PO SCH (07:27)
[2022-08-02] MEDS: ASPIRIN EC 81 MG TAB PO SCH (07:27)
[2022-08-02] MEDS: DULOXETINE 30 MG CAP PO SCH (07:27)
[2022-08-02] MEDS: FUROSEMIDE 40 MG TABLET PO SCH ×2 (07:27→17:00)
[2022-08-02] MEDS: MULTIVITAMINS,THERAPEUT 1 TAB PO SCH (07:27)
[2022-08-02] MEDS: GABAPENTIN 300 MG CAP PO SCH ×2 (07:28→20:29)
[2022-08-02] MEDS: ASCORBIC ACID 500 MG TABLET PO SCH (07:28)
[2022-08-02] MEDS: LORATADINE 10 MG TAB PO SCH (07:28)
[2022-08-02] MEDS: DOCOSAHEXANOIC AC/EPA 1000 MG PO SCH (07:28)
[2022-08-02] MEDS: LEFLUNOMIDE 20 MG PO SCH (07:29)
[2022-08-02] MEDS: LIDOCAINE 4% PATCH TOP SCH (07:29)
[2022-08-02] MEDS: CINACALCET 30 MG PO SCH (07:30)
[2022-08-02] MEDS: INSULIN -REGULAR HUMAN 50 UNIT/0.5 ML ML SQ SCH ×4 (07:30→20:31)
[2022-08-02] MEDS: SEVELAMER CARBONATE 800 MG TABLET PO SCH ×3 (07:32→18:22)
[2022-08-02] MEDS: HEPARIN 5000 UNIT/ML 1 ML VIAL SQ SCH ×2 (07:50→18:37)
[2022-08-02] MEDS: LOSARTAN POTASSIUM 50 MG TABLET PO SCH (08:00)
[2022-08-02] MEDS: TRAMADOL HCL 50 MG TAB PO PRN (08:59)
[2022-08-02] MEDS: ISOSORBIDE DINIT 20 MG TAB PO SCH ×3 (09:00→20:29)
--- NOTE | 2022-08-02 10:43 | P.PN ---
Nephrology note: (S) Pt reports feeling well after pain meds received this AM, has some mild cough, wheeze but otherwise ok (O) vitals reviewed in the EMR General: Alert, Cooperative, NAD HEENT: Atraumatic, Normocephalic, EOMI Respiratory: b/l air entry, Normal air movement, scattered wheeze Cardiovascular: Regular rate/rhythm, Normal S1 S2 Gastrointestinal: Soft and benign, Non-distended, No tenderness Musculoskeletal: No swelling, No contractures Ext: Lt UE AVF with thrill and bruit Back: Long midline back incision intact and mostly c/d Neurological: Normal speech, Normal tone, Normal affect Laboratory Data (last 24 hrs) Reviewed in the EMR Conclusions/Impression: 1. ESRD 2. Hypertensive CKD/ESRD 3. COPD, unspecified 4. RA with neg RF at this time 5 Degenerative disc disease 6. Secondary hyperparathyroidism due to CKD 7. Anemia 2nd to CKD, post surgical, GI bleeding, other 8. Abnormality of albumin 9. Fever unspecified last week. 10. Pseudomonas and Proteus positive wound culture -Will cont iHD on a TTS basis while here at rehab, see HD orders for details -Pre-dialysis labs reviewed, stable overall -Febrile episode last Wed, isolated, afebrile since, BCx and swab from one area along her back incision with scant drainage taken, pt placed on gram positive and gram neg empiric coverage. Vanc LD given, but switched to PO Abx as pt lost her IV. Cultures came back showing MDR Pseudomonas and Proteus, switched to IV meropenem 500 mg q24h. Complete 7 day course. UA neg, CXR neg for PNA. Pt is on DMARDs for RA which do increase her risk for infection, procalcitonin initially elevated but no sig leukocytosis or left shift. -Total corrected Ca remain mildly elevated, did prev temp suspend active Vit D and re-checked PTH level which remains < 150, will cont home med Sensipar at lower dose for now but will avoid PTH < 100, cont phos binders. Suspended temp, nutritional Vit d as well -Did transfuse 1 unit PRBC on HD week before last for persistent Hb < 8.0 with symptomatic anemia despite IV iron and GEMMA doses. Response to that was sub optimal, no reports of melenic stools but pt is on Eliquis, did check FOBT which was positive. Did stop Eliquis and place on lower dose Heparin for DVT ppx. Did place on BID PPI for GI ppx, counts remain low but have been able to hold off on additional transfusion. -BP soft last week, did d/c Hydralazine and lowered doses of Coreg and Losartan and BP acceptable mostly since. -Albumin remains quite low, added Nephro protein supplements, monitor. -OT/PT per rehab program. Possible discharge to SNF later this week Santos Garay MD, [facility]
[2022-08-02] MEDS: GUAIFENESIN 600 MG SA TAB PO SCH ×2 (11:49→20:29)
[2022-08-02] MEDS: Meropenem 500 MG in NA CHLORIDE 0.9% 100 ML IV SCH (18:23)
[2022-08-02] MEDS: DOCUSATE NA/SENNA CONC 1 TAB PO SCH (20:28)
[2022-08-02] MEDS: ATORVASTATIN 40 MG TAB PO SCH (20:29)
[2022-08-02] MEDS: TRELEGY ELLIPTA 100 MCG IH SCH (20:29)
[2022-08-02] MEDS: INSULIN GLARGINE 100 UNIT/ML SQ SCH (20:32)
[2022-08-02] MEDS: NEPRO SHAKE 237 ML CAN PO SCH (20:33)
--- NOTE | 2022-08-02 23:09 | PN ---
Etmq-[id number] progress note on patient, Wendy Ziegler. Subjective: Ms. Ziegler is doing much better today and yesterday as well. She denies any significant pain and she is ambulating with a rolling walker. The pain is managed by multiple modalities includ ing pain patch, narcotic medications, muscle relaxants, and neuromodulator. Review of Systems: Some back muscle spasms and again, that is much better. No difficulty with constipation and urinatio n issues. No difficulty with sleep and otherwise, doing well on review of systems. Physical Examination: Vital Signs: Blood pressure 142/60, pulse 77, respiratory rate 18, temperature 98.0. Lungs: Ms. Ziegler is clear to auscultation. Heart: Regular. Extremities: No significant edema or cyanosis. Skin: Her surgical site on the back has good hemostasis. Laboratory Studies: Blood sugars ranged from 73-113. X-ray Imaging: No new x-rays. Medications: Medications are unchanged and as noted previously she is on aspirin, vitamin C, allopur inol, Lipitor, Coreg, Cymbalta, furosemide, gabapentin, Cozaar, tramadol, and folic acid. Current Functional Status: She is able to ambulate 30 feet and 90 feet twice along with 60 feet inde pendently to standby assistance using a rolling walker. She did require some verbal cues. She did h ave improved balance and stability. She did supine to sit transfers with minimal assistance and mult iple [id number] transfers with contact guard to minimal assistance. Progress towards rehabilitation goals: She is making much better progress towards her physical and o ccupational therapy goals to become independent and transfer as well as performing activities of ella y living and again mobilize household distances. Assessment And Plan: Ms. Ziegler is a 67-year-old patient with thoracic cord compression status post decompression. She has end-stage renal disease on hemodialysis, hypertension, diabetes mellitus, chr onic pain, anemia, malnutrition and significant pain and risk for deep vein thrombosis. All those ar e mitigated with medications as above. Comorbidities that continue to impact rehabilitation process: She does have the end-stage renal dise ase on hemodialysis and chronic pain. She has ongoing infection as managed by now the Renal Service. She does have meropenem going for Pseudomonas aeruginosa and Proteus mirabilis, which is sensitive to that antibiotic and that is managed by the Renal Service. LB/CHESTERL Voice ID: [id number] Report ID: [id number]
[2022-08-03] MEDS: carvediloL 12.5 MG TAB PO SCH ×2 (06:00→17:11)
[2022-08-03] MEDS: INSULIN -REGULAR HUMAN 50 UNIT/0.5 ML ML SQ SCH ×4 (06:32→20:40)
[2022-08-03] MEDS: LINACLOTIDE 290 MG PO SCH (06:57)
[2022-08-03] MEDS: CYCLOSPORINE 0.05% OPTH SCH ×2 (06:57→20:42)
[2022-08-03] MEDS: PANTOPRAZOLE 40MG TABLET PO SCH ×2 (06:57→16:34)
[2022-08-03] MEDS: HEPARIN 5000 UNIT/ML 1 ML VIAL SQ SCH ×2 (07:30→18:23)
[2022-08-03] MEDS: DULOXETINE 30 MG CAP PO SCH (07:50)
[2022-08-03] MEDS: LORATADINE 10 MG TAB PO SCH (07:50)
[2022-08-03] MEDS: allopurinoL 100 MG TAB PO SCH (07:51)
[2022-08-03] MEDS: ASPIRIN EC 81 MG TAB PO SCH (07:51)
[2022-08-03] MEDS: GABAPENTIN 300 MG CAP PO SCH ×2 (07:51→20:39)
[2022-08-03] MEDS: MULTIVITAMINS,THERAPEUT 1 TAB PO SCH (07:52)
[2022-08-03] MEDS: FUROSEMIDE 40 MG TABLET PO SCH ×2 (07:52→16:33)
[2022-08-03] MEDS: Oxycodone HCl/Acetaminophen 1 TAB TAB PO PRN ×2 (07:54→12:20)
[2022-08-03] MEDS: LIDOCAINE 4% PATCH TOP SCH (07:55)
[2022-08-03] MEDS: GUAIFENESIN 600 MG SA TAB PO SCH ×2 (07:57→20:39)
[2022-08-03] MEDS: SEVELAMER CARBONATE 800 MG TABLET PO SCH ×3 (07:57→16:33)
[2022-08-03] MEDS: LOSARTAN POTASSIUM 50 MG TABLET PO SCH ×2 (07:57→08:00)
[2022-08-03] MEDS: ASCORBIC ACID 500 MG TABLET PO SCH (07:57)
[2022-08-03] MEDS: DOCOSAHEXANOIC AC/EPA 1000 MG PO SCH (07:57)
[2022-08-03] MEDS: ISOSORBIDE DINIT 20 MG TAB PO SCH ×3 (07:57→20:39)
[2022-08-03] MEDS: LEFLUNOMIDE 20 MG PO SCH (08:25)
[2022-08-03] MEDS: CINACALCET 30 MG PO SCH (08:25)
--- NOTE | 2022-08-03 12:13 | P.PN ---
Nephrology note: (S) Pt reports doing fair, some cough still present but denies chest tightness or dyspnea. Case discussed with CM, discharge planning hampered by limited SNF options, IV Abx and need for transportation to and from HD (O) vitals reviewed in the EMR General: Alert, Cooperative, NAD HEENT: Atraumatic, Normocephalic, EOMI Respiratory: b/l air entry, Normal air movement, scattered wheeze Cardiovascular: Regular rate/rhythm, Normal S1 S2 Gastrointestinal: Soft and benign, Non-distended, No tenderness Musculoskeletal: No swelling, No contractures Ext: Lt UE AVF with thrill and bruit Back: Long midline back incision intact and mostly c/d Neurological: Normal speech, Normal tone, Normal affect Laboratory Data (last 24 hrs) Reviewed in the EMR Conclusions/Impression: 1. ESRD 2. Hypertensive CKD/ESRD 3. COPD, unspecified 4. RA with neg RF at this time 5 Degenerative disc disease 6. Secondary hyperparathyroidism due to CKD 7. Anemia 2nd to CKD, post surgical, GI bleeding, other 8. Abnormality of albumin 9. Fever unspecified last week. 10. Pseudomonas and Proteus positive wound culture -Will cont iHD on a TTS basis while here at rehab, see HD orders for details -Pre-dialysis labs from earlier in the week reviewed, stable overall -Febrile episode last Wed, isolated, afebrile since, BCx and swab from one area along her back incision with scant drainage taken, pt placed on gram positive and gram neg empiric coverage. Vanc LD given, but switched to PO Abx as pt lost her IV. Cultures came back showing MDR Pseudomonas and Proteus, switched to IV meropenem 500 mg q24h. May shorten course of Abx, will also discuss with ID UA neg, CXR neg for PNA. Bcx neg Pt is on DMARDs for RA which do increase her risk for infection, procalcitonin initially elevated but no sig leukocytosis or left shift. -Total corrected Ca remain mildly elevated, did prev temp suspend active Vit D and re-checked PTH level which remains < 150, will cont home med Sensipar at lower dose for now but will avoid PTH < 100, cont phos binders. Suspended temp, nutritional Vit d as well -Did transfuse 1 unit PRBC on HD week before last for persistent Hb < 8.0 with symptomatic anemia despite IV iron and GEMMA doses. Response to that was sub optimal, no reports of melenic stools but pt is on Eliquis, did check FOBT which was positive. Did stop Eliquis and place on lower dose Heparin for DVT ppx. Did place on BID PPI for GI ppx, counts remain low but have been able to hold off on additional transfusion. Re-assess tmrw -BP soft last week, did d/c Hydralazine and lowered doses of Coreg and Losartan and BP acceptable mostly since. -Albumin remains quite low, added Nephro protein supplements, monitor. -OT/PT per rehab program. Discharge plans in progress Santos Garay MD, [facility]
[2022-08-03] MEDS: HYDROCODONE/APAP 5/325 MG TAB PO PRN (16:13)
--- NOTE | 2022-08-03 16:30 | CON ---
History Of Present Illness: This is a 67-year-old female, very pleasant patient here in rehab unit. I was consulted for evaluation of Pseudomonas infection to the back wound. The patient had a fever spike with leukocytosis on 07/27 and she was started on antibiotic at that time, which was switched t o oral Vibramycin. The patient denies any fall to the area. The patient has back surgery recently f or degenerative arthritis, osteoarthritis, and her wound cultures are growing Pseudomonas and Proteus mirabilis with sensitive to meropenem. The patient is currently on meropenem for the last 4 days, w hich she is getting 500 mg daily. She has also significant history of end-stage renal disease, diabe yao mellitus for 25 years, end-stage renal disease for 2-1/2 years on dialysis Monday, , and Saturdays, degenerative disk disease, hyperparathyroidism due to CKD, anemia secondary to CKD, abnor mal albumin levels and Pseudomonas infection and Proteus infection from the back wound. Past Medical History: As per HPI. Social History: Nonsmoker, nondrinker. Family History: Noncontributory. Medications: Meropenem. See MAR for other medications. Allergies: INCLUDE SULFA DRUGS, CODEINE, VICTOZA AND INFLIXIMAB. Review of Systems: A 10-point review was performed. Physical Examination: General: This is a 67-year-old female, sitting in wheelchair, not in any acute distress. Vital Signs: Temperature 98, pulse 77, respirations 16, blood pressure 109/58. Musculoskeletal: Examination of back area shows a small surgical wound open area with no drainage on the dressing. HEENT: Unremarkable. Neck: Supple. Laboratory Data: Shows WBC 9.5 down from 12.8 from 07/27, hemoglobin 8, platelets are 478. Chemistr y shows sodium 135, potassium 4, chloride 98, bicarb 31, BUN 51, creatinine 5.1, glucose is 158. Alb umin level is 2 with procalcitonin of 1.2. Chest x-ray done on 07/28 shows interstitial edema or inf iltrate pattern, slightly increased on the right. Assessment And Plan: Surgical wound infection with Pseudomonas and Proteus mirabilis in a patient wi th end-stage renal disease and degenerative joint disease of the spine, status post surgical interven tion. The patient is asymptomatic at this point, getting meropenem for last 4 days. We will recomme nd to continue that for a total of 10 days and recommend also Silvadene to be applied to the wound si te on daily basis. Monitor for signs of any infection with WBC and fever trend. Consider starting t he patient on probiotic as she has been on antibiotic for several days. Lactinex 1 tablet twice a da y is recommended as if it is okay with Nephrology team. We will follow the patient closely. Monitor the wound site. Thank you, Dr. Montanez for consult. NF/CHESTERL Voice ID: [id number] Report ID: [id number]
[2022-08-03] MEDS: Meropenem 500 MG in NA CHLORIDE 0.9% 100 ML IV SCH (16:34)
[2022-08-03] MEDS: EPOETIN ALFA 10,000 UNIT/ML VIAL SQ SCH (17:07)
[2022-08-03] MEDS: ATORVASTATIN 40 MG TAB PO SCH (20:39)
[2022-08-03] MEDS: DOCUSATE NA/SENNA CONC 1 TAB PO SCH (20:40)
[2022-08-03] MEDS: NEPRO SHAKE 237 ML CAN PO SCH (20:43)
[2022-08-03] MEDS: INSULIN GLARGINE 100 UNIT/ML SQ SCH (20:43)
[2022-08-03] MEDS: TRELEGY ELLIPTA 100 MCG IH SCH (20:43)
--- NOTE | 2022-08-04 00:03 | PN ---
Nqah-oo-plda visit on patient, Wendy Ziegler. Subjective: Ms. Ziegler is doing very well again today. She has no new complaints. She was seen by the ID Service. They do recommend continuing another 10 days of intravenous antibiotics. Review of Systems: She reports some muscle spasms, but those have improved and she has no constipation and is otherwise sleeping well. Physical Examination: Vital Signs: Blood pressure 142/65, pulse is 83, respiratory rate 16, temperature 97.7. Back: Ms. Ziegler's back surgical site shows good hemostasis. No drainage noted. Laboratory Studies: Blood sugars ranged from 147-165. X-ray Imaging: No new x-rays or imaging studies. Medications: As noted she is on multiple medications. She is now on meropenem intravenously 500 mg every 24 hours. Otherwise, medications are essentially unchanged. Current Functional Status: She did multiple sit to stand transfers with contact guard to standby ass istance. She did stand and pivot transfers from wheelchair to bed using the front wheel walker with standby assistance. She did maintain good dynamic standing balance while throwing a ball. She ambul ated 30 feet, 60 feet, and another 30 feet with minimum assistance. She did self propel wheelchair 1 00 feet with standby assistance. Progress towards rehabilitation goals: She continues to make very good progress towards physical and occupational therapy goals to become modified independent to independent with transfers, activities of daily living and also mobilization. Assessment And Plan: Ms. Ziegler is a 67-year-old patient with thoracic cord compression fracture, st atus post decompression. She has multiple comorbid conditions including end-stage renal disease on h emodialysis, hypertension, diabetes mellitus, chronic pain, malnutrition, and the risk for deep vein thrombosis and those are managed medically. In terms of comorbidities that impact rehabilitation pro walter, she is an end-stage renal disease patient and is on hemodialysis 3 times weekly. She has ongo ing infection with Pseudomonas aeruginosa and Proteus mirabilis, which is susceptible to meropenem IV and she is on that and she needs to continue 10 more days, which she is on day 4 at this point of e IV antibiotics. She was also followed by the Renal Service and the ID Service. GUNJAN/TONY Voice ID: [id number] Report ID: [id number]
[2022-08-04] MEDS: HYDROCODONE/APAP 5/325 MG TAB PO PRN ×5 (01:28→20:35)
[2022-08-04 04:27] LABS: Hematocrit 23.2 % (36.0-45.0); Lymphocytes % 21.2 % (15.3-44.8); MCV 98.2 fL (80-100); MPV 7.5 fL (7.6-11.3); RBC Red Blood Cell Count 2.37 M/uL (3.86-4.86)
[2022-08-04] MEDS: carvediloL 12.5 MG TAB PO SCH ×3 (05:09→19:22)
[2022-08-04 05:19] LABS: Magnesium 2.3 mg/dL (1.8-2.4); Potassium 4.1 mmol/L (3.5-5.1); Prealbumin 13.2 mg/dL (20-40)
[2022-08-04] MEDS: CYCLOSPORINE 0.05% OPTH SCH ×2 (07:28→19:27)
[2022-08-04] MEDS: LEFLUNOMIDE 20 MG PO SCH (07:29)
[2022-08-04] MEDS: LINACLOTIDE 290 MG PO SCH (07:29)
[2022-08-04] MEDS: CINACALCET 30 MG PO SCH (07:30)
[2022-08-04] MEDS: INSULIN -REGULAR HUMAN 50 UNIT/0.5 ML ML SQ SCH ×4 (07:30→21:00)
[2022-08-04] MEDS: HEPARIN 5000 UNIT/ML 1 ML VIAL SQ SCH ×2 (07:30→18:18)
[2022-08-04] MEDS: DULOXETINE 30 MG CAP PO SCH (07:32)
[2022-08-04] MEDS: FUROSEMIDE 40 MG TABLET PO SCH ×3 (07:32→19:23)
[2022-08-04] MEDS: PANTOPRAZOLE 40MG TABLET PO SCH ×2 (07:32→16:30)
[2022-08-04] MEDS: ASPIRIN EC 81 MG TAB PO SCH (07:32)
[2022-08-04] MEDS: allopurinoL 100 MG TAB PO SCH (07:32)
[2022-08-04] MEDS: GABAPENTIN 300 MG CAP PO SCH ×2 (07:33→19:29)
[2022-08-04] MEDS: LOSARTAN POTASSIUM 50 MG TABLET PO SCH (08:00)
[2022-08-04] MEDS: DOCOSAHEXANOIC AC/EPA 1000 MG PO SCH (08:36)
[2022-08-04] MEDS: LIDOCAINE 4% PATCH TOP SCH (08:36)
[2022-08-04] MEDS: GUAIFENESIN 600 MG SA TAB PO SCH ×2 (08:36→19:29)
[2022-08-04] MEDS: MULTIVITAMINS,THERAPEUT 1 TAB PO SCH (08:36)
[2022-08-04] MEDS: SEVELAMER CARBONATE 800 MG TABLET PO SCH ×4 (08:36→18:15)
[2022-08-04] MEDS: LORATADINE 10 MG TAB PO SCH (08:37)
[2022-08-04] MEDS: ASCORBIC ACID 500 MG TABLET PO SCH (08:38)
[2022-08-04] MEDS: ISOSORBIDE DINIT 20 MG TAB PO SCH ×3 (09:00→19:30)
--- NOTE | 2022-08-04 09:33 | P.PN ---
Nephrology note: Brief note (chart check only), CBC shows peripheral eosinophilia which is new, AEC > 1500, correlates with Meropenem initiation. Discussed case with Dr. Palma/NORIS and will go ahead and stop IV Meropenem to prevent any complications such as DRESS or other, current vitals stable. He will switch to topical Abx.
[2022-08-04] MEDS: SILVER SULFADIAZINE 1% 25 GM TOP SCH (11:04)
[2022-08-04] MEDS: TRELEGY ELLIPTA 100 MCG IH SCH (19:27)
[2022-08-04] MEDS: DOCUSATE NA/SENNA CONC 1 TAB PO SCH (19:29)
[2022-08-04] MEDS: ATORVASTATIN 40 MG TAB PO SCH (19:30)
[2022-08-04] MEDS: NEPRO SHAKE 237 ML CAN PO SCH (19:55)
[2022-08-04] MEDS: INSULIN GLARGINE 100 UNIT/ML SQ SCH (21:00)
--- NOTE | 2022-08-05 00:14 | PN ---
This is a hifr-[id number]-[id number] visit with Wendy Ziegler. Subjective: Ms. Ziegler is doing better today and every day she has been improving. She has some mil d pain as she does her therapy. She is currently sitting in the wheelchair and she is ambulating kate und the unit. Review of Systems: No significant pain in the lower extremities. There are some mild spasms at the back surgical site. Otherwise, negative. Physical Examination: Vital Signs: Blood pressure 152/70, pulse 86, respiratory rate 18, temperature 98.1. General: Ms. Ziegler as noted is comfortable and smiling with no focal deficits in terms of lower ext remity. Back: Surgical site at the back has good hemostasis. Laboratory Studies: White blood cell count 9.4, hemoglobin 7.7. Her creatinine today is 5.82. She has dialysis later in the day. Blood sugars ranged from 176-192. Sodium 135, potassium 4.1, chlorid e 97. Procalcitonin 0.69, that is down from 1.24. Medications: Have not changed as noted in last note, which is yesterday. Current Level Of Functioning: Currently, she ambulated 102 feet, 108 feet, and 135 feet independentl y using a rolling walker. She did sit to stand transfers from a wheelchair independently with a roll ing walker. Progress towards rehabilitation goals: She is making excellent progress with all of her rehabilitati on goals of becoming independent with transfers, activities of daily living, and mobilizing household distances. Assessment And Plan: Ms. Ziegler is admitted with thoracic cord compression status post decompression . She is making great progress regarding that and in terms of muscle spasms, much less pain and drai nage in that site is much less and infection also under control. She has end-stage renal disease. S he is having hemodialysis on Monday, , and Monday. She has anemia and she has malnutritio n and those are addressed by iron supplementation on protein supplementation as well. Her pain is ma naged by medications and muscle spasms as well. Comorbidity that continues to impact her rehabilitat ion process is end-stage renal disease that is addressed. She also is likely to be ready for dischar ge by next Monday. She will be home with help from family members. Dialysis will resume as it di d previously with the patient going to hemodialysis 3 times weekly. LB/MODL Voice ID: [id number] Report ID: [id number]
[2022-08-05] MEDS: HYDROCODONE/APAP 5/325 MG TAB PO PRN ×4 (04:22→20:03)
[2022-08-05] MEDS: carvediloL 12.5 MG TAB PO SCH ×2 (05:09→17:42)
[2022-08-05] MEDS: INSULIN -REGULAR HUMAN 50 UNIT/0.5 ML ML SQ SCH ×4 (07:30→20:33)
[2022-08-05] MEDS: LINACLOTIDE 290 MG PO SCH (07:42)
[2022-08-05] MEDS: LIDOCAINE 4% PATCH TOP SCH (07:45)
[2022-08-05] MEDS: MULTIVITAMINS,THERAPEUT 1 TAB PO SCH (07:46)
[2022-08-05] MEDS: PANTOPRAZOLE 40MG TABLET PO SCH ×2 (07:46→17:33)
[2022-08-05] MEDS: ASCORBIC ACID 500 MG TABLET PO SCH (07:46)
[2022-08-05] MEDS: allopurinoL 100 MG TAB PO SCH (07:47)
[2022-08-05] MEDS: LOSARTAN POTASSIUM 50 MG TABLET PO SCH (07:47)
[2022-08-05] MEDS: GABAPENTIN 300 MG CAP PO SCH ×2 (07:48→19:36)
[2022-08-05] MEDS: LORATADINE 10 MG TAB PO SCH (07:48)
[2022-08-05] MEDS: SEVELAMER CARBONATE 800 MG TABLET PO SCH ×3 (07:48→17:33)
[2022-08-05] MEDS: DULOXETINE 30 MG CAP PO SCH (07:49)
[2022-08-05] MEDS: GUAIFENESIN 600 MG SA TAB PO SCH ×2 (07:49→19:35)
[2022-08-05] MEDS: DOCOSAHEXANOIC AC/EPA 1000 MG PO SCH (07:50)
[2022-08-05] MEDS: ASPIRIN EC 81 MG TAB PO SCH (07:50)
[2022-08-05] MEDS: LEFLUNOMIDE 20 MG PO SCH (07:53)
[2022-08-05] MEDS: CINACALCET 30 MG PO SCH (07:54)
[2022-08-05] MEDS: CYCLOSPORINE 0.05% OPTH SCH ×2 (08:00→19:40)
[2022-08-05] MEDS: HEPARIN 5000 UNIT/ML 1 ML VIAL SQ SCH ×2 (08:00→18:49)
[2022-08-05] MEDS: SILVER SULFADIAZINE 1% 25 GM TOP SCH (08:02)
[2022-08-05] MEDS: ISOSORBIDE DINIT 20 MG TAB PO SCH ×3 (08:02→19:36)
[2022-08-05] MEDS: FUROSEMIDE 40 MG TABLET PO SCH ×2 (08:02→17:43)
--- NOTE | 2022-08-05 08:44 | P.RH.PN ---
Estimated Length of Stay: 30 Expected Discharge Date: 08/10/22 Discharge Disposition Plan: Home Family Support: Yes [facility] Goal: Mobility, Transfers, Self Care Vital Signs: Last Vital Signs Temp 97.4 F 08/05/22 07:13 Pulse 72 08/05/22 08:02 Resp 18 08/05/22 08:17 BP 140/65 08/05/22 08:02 Pulse Ox 93 08/05/22 08:17 Laboratory: Laboratory Last Values WBC 9.40 K/uL (4.3-10.9) 08/04/22 04:04 RBC 2.37 M/uL (3.86-4.86) L 08/04/22 04:04 Hgb 7.7 g/dL (12.0-15.0) L 08/04/22 04:04 Hct 23.2 % (36.0-45.0) L 08/04/22 04:04 MCV 98.2 fL (80-100) 08/04/22 04:04 MCH 32.5 pg (27.0-35.0) 08/04/22 04:04 MCHC 33.1 g/dL (32.0-36.0) 08/04/22 04:04 RDW 22.4 % (12.1-15.2) H 08/04/22 04:04 Plt Count 403 K/uL (152-406) 08/04/22 04:04 MPV 7.5 fL (7.6-11.3) L 08/04/22 04:04 Neutrophils % 39.0 % (41.7-73.7) L 08/04/22 04:04 Lymphocytes % 21.2 % (15.3-44.8) 08/04/22 04:04 Monocytes % 15.3 % (3.3-12.3) H 08/04/22 04:04 Eosinophils % 23.4 % (0-4.4) H 08/04/22 04:04 Basophils % 1.1 % (0-1.3) 08/04/22 04:04 Absolute Neutrophils 3.7 K/uL (1.8-8.0) 08/04/22 04:04 Segmented Neutrophils 45 % (40-80) 08/01/22 04:08 Band Neutrophils 2 % (0-1) H 08/01/22 04:08 Absolute Lymphocytes 2.0 K/uL (0.7-4.9) 08/04/22 04:04 Lymphocytes 21 % (15-42) 08/01/22 04:08 Monocytes 6 % (0-10) 08/01/22 04:08 Absolute Monocytes 1.4 K/uL (0.1-1.3) H 08/04/22 04:04 Eosinophils 25 % (0-3) H 08/01/22 04:08 Absolute Eosinophils 2.2 K/uL (0-0.5) H 08/04/22 04:04 Basophils 1 % (0-1) 07/25/22 04:21 Absolute Basophils 0.1 K/uL (0-0.5) 08/04/22 04:04 Nucleated RBCs 2 /100WBC 08/01/22 04:08 Reactive Lymphocytes 1 % 08/01/22 04:08 Platelet Estimate Adeq 08/01/22 04:08 Polychromasia 1+ 08/01/22 04:08 Anisocytosis 2+ 08/01/22 04:08 Macrocytosis 1+ 08/01/22 04:08 Morphology Comment Noted (NOT SEEN) 08/01/22 04:08 pH 7.40 (7.35-7.45) 07/24/22 08:35 pCO2 44.2 mmHG (35-45) 07/24/22 08:35 pO2 87.4 mmHG (75-100) 07/24/22 08:35 HCO3 27.1 mmol/L (22-28) 07/24/22 08:35 Base Excess 2.7 mmol/L 07/24/22 08:35 Oxyhemoglobin 93.3 % (94-97) L 07/24/22 08:35 ABG O2 Sat (Measured) 94.3 % (92-98.5) 07/24/22 08:35 ABG Carboxyhemoglobin 0.4 % (0-1.5) 07/24/22 08:35 ABG Methemoglobin 0.7 % (0-1.5) 07/24/22 08:35 Other Total Hgb 12.0 g/dl (12-18) 07/24/22 08:35 Inspired O2 21.0 % 07/24/22 08:35 Sodium 135 mmol/L (136-145) L 08/04/22 04:04 Potassium 4.1 mmol/L (3.5-5.1) 08/04/22 04:04 Chloride 97 mmol/L (98-107) L 08/04/22 04:04 Carbon Dioxide 30 mmol/L (21-32) 08/04/22 04:04 Anion Gap 12.1 mEq/L (5.0-15.0) 08/04/22 04:04 BUN 52 mg/dL (7-18) H 08/04/22 04:04 Creatinine 5.82 mg/dL (0.55-1.3) H* 08/04/22 04:04 Est GFR (CKD-EPI) 8 ml/min (=/>90) L 08/04/22 04:04 Glucose 192 mg/dL (74-106) H 08/04/22 04:04 POC Glucose 166 mg/dL (65-120) H 08/05/22 07:05 Hemoglobin A1c 6.0 % (4.2-6.3) 07/19/22 04:01 Lactic Acid 1.0 mmol/L (0.4-2.0) 07/27/22 16:56 Calcium 8.8 mg/dL (8.5-10.1) 08/04/22 04:04 Phosphorus 4.9 mg/dL (2.5-4.9) 08/01/22 04:08 Magnesium 2.3 mg/dL (1.8-2.4) 08/04/22 04:04 Total Bilirubin 0.3 mg/dL (0.2-1.0) 07/19/22 04:01 AST 17 U/L (15-37) 07/19/22 04:01 ALT < 10 U/L (12-78) L 07/19/22 04:01 Alkaline Phosphatase 264 U/L (45-117) H 07/19/22 04:01 Lactate Dehydrogenase 226 U/L (84-246) 07/27/22 16:56 NT-Pro-B Natriuret Pep 87739 pg/mL (<125) H 07/19/22 04:01 Serum Total Protein 5.6 g/dL (6.4-8.2) L 07/19/22 04:01 Albumin 2.0 g/dL (3.4-5.0) L 08/04/22 04:04 Globulin 3.6 g/dL (2.3-3.5) H 07/19/22 04:01 Albumin/Globulin Ratio 0.6 (1.1-1.8) L 07/19/22 04:01 Prealbumin 13.2 mg/dL (20-40) L 08/04/22 04:04 Procalcitonin 0.69 ng/mL (<0.050) H 08/04/22 04:04 PTH Intact 126.4 pg/mL (18.4-80.1) H 07/21/22 04:06 Urine Color Yellow (Yellow) 07/27/22 18:10 Urine Clarity Clear (Clear) 07/27/22 18:10 Urine pH 5.5 (5.0-7.0) 07/27/22 18:10 Ur Specific [place] 1.012 (1.005-1.030) 07/27/22 18:10 Glucose (UA)(Auto) Negative (Negative) 07/27/22 18:10 Urine Ketones Negative (Negative) 07/27/22 18:10 Urine Blood Negative (Negative) 07/27/22 18:10 Urine Nitrite Negative (Negative) 07/27/22 18:10 Urine Bilirubin Negative (Negative) 07/27/22 18:10 Urine Urobilinogen Normal (Normal) 07/27/22 18:10 Ur Leukocyte Esterase Negative Ronny/uL (Negative) 07/27/22 18:10 Urine RBC <5 /HPF (None Seen) 07/27/22 18:10 Urine WBC <5 /HPF (<5) 07/27/22 18:10 Ur Squamous Epith Cells <5 /HPF (None Seen) 07/27/22 18:10 U Non-Squamous Epi Cells <5 /HPF (None Seen) 07/13/22 13:55 Urine Bacteria <20 /HPF (<20) 07/27/22 18:10 Urine Total Protein 1+ (Negative) H 07/27/22 18:10 Rheumatoid Factor Neg (NEG) 07/15/22 06:14 Hep Bs Antigen Nonreactive (Nonreactive) 07/26/22 15:58 Hep Bs Antibody, Quant 24 mIU/mL (>=10) 07/26/22 15:58 SARS-CoV-2 Rap RNA(RT-PCR) Negative (NEGATIVE) 08/03/22 03:48 Smear Scan Ok (OK) 07/27/22 16:56 ABO/Rh Cancelled 07/21/22 Unknown Solid Phase Ab Screen Cancelled 07/21/22 Unknown Crossmatch See Detail 07/21/22 Unknown Weight: 197 lb 4.8 oz Wound Present: No Closed Surgical Incision Present: Yes Negative Pressure Wound Therapy Present: No Physician Update: Her IV antibiotics was discontinued today to continue oral antibiotics. She has made very good progress over the last week and should be ready for discharge home on Monday. Summary: Patient's care plan and halfway goals have been reviewed and revised as necessary. Please see the Rehabilitation Signature page for all necessary signatures.
[2022-08-05 12:48] LABS: Absolute Lymphocytes (CBC) 1.6 K/uL (0.7-4.9); Hematocrit 28.3 % (36.0-45.0); Lymphocytes % 15.6 % (15.3-44.8); MPV 7.5 fL (7.6-11.3); RBC Red Blood Cell Count 2.83 M/uL (3.86-4.86)
[2022-08-05] MEDS: TRAMADOL HCL 50 MG TAB PO PRN (15:31)
--- NOTE | 2022-08-05 16:48 | PN ---
Subjective: Patient is sitting in wheelchair at rehab gym. Denies any chest pain, abdominal pain, c onstipation. No itching or rashes. Objective: Vital Signs: Temperature 97, pulse 72, respirations 18, blood pressure 140/65. Lungs: Basal crackles. Heart: S1, S2. Regular. Abdomen: Soft, nontender. Bowel sounds present. Extremities: No edema. Wound noted. Laboratory Data: Reviewed. Assessment And Plan: Postsurgical wound healing well in a patient with end-stage renal disease, anem ia of chronic disease, moderate protein-calorie malnutrition. Continue Silvadene and continue suppor tive care. Discontinue meropenem as patient has eosinophilia, which is trending down since meropenem has been stopped. We will follow the patient as needed. NF/MODL Voice ID: [id number] Report ID: [id number]
[2022-08-05 16:53] LABS: Anisocytosis 2+; Blood Morphology Comment NOTED (NOT SEEN); Platelet Estimate INCR; Polychromasia 1+
[2022-08-05] MEDS: EPOETIN ALFA 10,000 UNIT/ML VIAL SQ SCH (17:33)
[2022-08-05] MEDS: NEPRO SHAKE 237 ML CAN PO SCH (19:37)
[2022-08-05] MEDS: ATORVASTATIN 40 MG TAB PO SCH (19:37)
[2022-08-05] MEDS: DOCUSATE NA/SENNA CONC 1 TAB PO SCH (19:37)
[2022-08-05] MEDS: TRELEGY ELLIPTA 100 MCG IH SCH (19:41)
[2022-08-05] MEDS: INSULIN GLARGINE 100 UNIT/ML SQ SCH (20:34)
[2022-08-06] MEDS: carvediloL 12.5 MG TAB PO SCH ×2 (05:18→17:37)
[2022-08-06] MEDS: PANTOPRAZOLE 40MG TABLET PO SCH ×2 (07:17→17:37)
[2022-08-06] MEDS: LINACLOTIDE 290 MG PO SCH (07:17)
[2022-08-06] MEDS: CYCLOSPORINE 0.05% OPTH SCH ×2 (07:18→19:48)
[2022-08-06] MEDS: INSULIN -REGULAR HUMAN 50 UNIT/0.5 ML ML SQ SCH ×4 (07:30→19:50)
[2022-08-06] MEDS: HEPARIN 5000 UNIT/ML 1 ML VIAL SQ SCH ×2 (07:36→20:00)
[2022-08-06] MEDS: ASCORBIC ACID 500 MG TABLET PO SCH (07:43)
[2022-08-06] MEDS: MULTIVITAMINS,THERAPEUT 1 TAB PO SCH (07:43)
[2022-08-06] MEDS: DOCOSAHEXANOIC AC/EPA 1000 MG PO SCH (07:43)
[2022-08-06] MEDS: allopurinoL 100 MG TAB PO SCH (07:43)
[2022-08-06] MEDS: SEVELAMER CARBONATE 800 MG TABLET PO SCH ×3 (07:44→17:37)
[2022-08-06] MEDS: DULOXETINE 30 MG CAP PO SCH (07:44)
[2022-08-06] MEDS: FUROSEMIDE 40 MG TABLET PO SCH ×2 (07:44→17:00)
[2022-08-06] MEDS: GABAPENTIN 300 MG CAP PO SCH ×2 (07:44→19:48)
[2022-08-06] MEDS: ASPIRIN EC 81 MG TAB PO SCH (07:44)
[2022-08-06] MEDS: GUAIFENESIN 600 MG SA TAB PO SCH ×2 (07:44→19:49)
[2022-08-06] MEDS: LORATADINE 10 MG TAB PO SCH (07:44)
[2022-08-06] MEDS: LEFLUNOMIDE 20 MG PO SCH (07:45)
[2022-08-06] MEDS: CINACALCET 30 MG PO SCH (07:45)
[2022-08-06] MEDS: LOSARTAN POTASSIUM 50 MG TABLET PO SCH ×2 (07:56→19:49)
[2022-08-06] MEDS: ISOSORBIDE DINIT 20 MG TAB PO SCH ×3 (07:56→19:48)
[2022-08-06] MEDS: SILVER SULFADIAZINE 1% 25 GM TOP SCH (08:05)
[2022-08-06] MEDS: LIDOCAINE 4% PATCH TOP SCH (08:06)
--- NOTE | 2022-08-06 08:13 | P.PN ---
Date of Service: 08/05/22 Nephrology note: (S) Delayed entry note for 08/05, pt had been seen yesterday morning during PT session. Doing well, no acute complaints (O) vitals reviewed in the EMR General: Alert, Cooperative, NAD HEENT: Atraumatic, Normocephalic, EOMI Respiratory: b/l air entry, Normal air movement, scattered wheeze Cardiovascular: Regular rate/rhythm, Normal S1 S2 Gastrointestinal: Soft and benign, Non-distended, No tenderness Musculoskeletal: No swelling, No contractures Ext: Lt UE AVF with thrill and bruit Back: Long midline back incision intact and mostly c/d Neurological: Normal speech, Normal tone, Normal affect Laboratory Data (last 24 hrs) Reviewed in the EMR Conclusions/Impression: 1. ESRD 2. Hypertensive CKD/ESRD 3. COPD, unspecified 4. RA with neg RF at this time 5 Degenerative disc disease 6. Secondary hyperparathyroidism due to CKD 7. Anemia 2nd to CKD, post surgical, GI bleeding, other 8. Abnormality of albumin 9. Fever unspecified last week. 10. Pseudomonas and Proteus positive wound culture -Will cont iHD on a TTS basis while here at rehab, see HD orders for details -Pre-dialysis labs from earlier in the week reviewed, stable overall -Febrile episode > 1 week ago/isolated, afebrile since, BCx and swab from one area along her back incision with scant drainage taken, pt placed on gram positive and gram neg empiric coverage. Vanc LD given, but switched to PO Abx as pt lost her IV. Cultures came back showing MDR Pseudomonas and Proteus, switched to IV meropenem 500 mg q24h. Stopped Abx after < 7 days due to sig rise in eosinophil count/AEC > 1500 which appeared to correlate with start of Meropenem. Case discussed with ID, Dr. Palma who agreed. UA neg, CXR neg for PNA. Bcx neg Pt is on DMARDs for RA which do increase her risk for infection, procalcitonin initially elevated but no sig leukocytosis or left shift. -Total corrected Ca remain mildly elevated, did prev temp suspend active Vit D and re-checked PTH level which remains < 150, will cont home med Sensipar at lower dose for now but will avoid PTH < 100, cont phos binders. Suspended temp, nutritional Vit d as well -Did transfuse 1 unit PRBC on HD week before last for persistent Hb < 8.0 with symptomatic anemia despite IV iron and GEMMA doses. Response to that was sub optimal, no reports of melenic stools but pt is on Eliquis, did check FOBT which was positive. Did stop Eliquis and place on lower dose Heparin for DVT ppx. Did place on BID PPI for GI ppx, counts remain low but have been able to hold off on additional transfusion. Latest Hb now > 9 for the first time -BP soft last week, did d/c Hydralazine and lowered doses of Coreg and Losartan and BP acceptable mostly since. -Albumin remains quite low, added Nephro protein supplements, monitor. -OT/PT per rehab program. Discharge plans in progress Santos Garay MD, [facility]
[2022-08-06] MEDS: HYDROCODONE/APAP 5/325 MG TAB PO PRN ×2 (10:57→22:48)
--- NOTE | 2022-08-06 11:34 | P.PN ---
Nephrology note: (S) Pt seen resting comfortably, no acute complaints, mild cough but better on Mucinex, no dyspnea (O) vitals reviewed in the EMR General: Alert, Cooperative, NAD HEENT: Atraumatic, Normocephalic, EOMI Respiratory: b/l air entry, Normal air movement, scattered wheeze Cardiovascular: Regular rate/rhythm, Normal S1 S2 Gastrointestinal: Soft and benign, Non-distended, No tenderness Musculoskeletal: No swelling, No contractures Ext: Lt UE AVF with thrill and bruit Back: Long midline back incision intact and mostly c/d Neurological: Normal speech, Normal tone, Normal affect Laboratory Data (last 24 hrs) Reviewed in the EMR Conclusions/Impression: 1. ESRD 2. Hypertensive CKD/ESRD 3. COPD, unspecified 4. RA with neg RF at this time 5 Degenerative disc disease 6. Secondary hyperparathyroidism due to CKD 7. Anemia 2nd to CKD, post surgical, GI bleeding, other 8. Abnormality of albumin 9. Fever unspecified last week. 10. Pseudomonas and Proteus positive wound culture -Will cont iHD on a TTS basis while here at rehab, see HD orders for details -Pre-dialysis labs from earlier in the week reviewed, stable overall -Febrile episode > 1 week ago/isolated, afebrile since, BCx and swab from one area along her back incision with scant drainage taken, pt placed on gram positive and gram neg empiric coverage. Vanc LD given, but switched to PO Abx as pt lost her IV. Cultures came back showing MDR Pseudomonas and Proteus, switched to IV meropenem 500 mg q24h. Stopped Abx after < 7 days due to sig rise in eosinophil count/AEC > 1500 which appeared to correlate with start of Meropenem. Case discussed with ID, Dr. Palma who agreed. UA neg, CXR neg for PNA. Bcx neg Pt is on DMARDs for RA which do increase her risk for infection, procalcitonin initially elevated but no sig leukocytosis or left shift. -Total corrected Ca remain mildly elevated, did prev temp suspend active Vit D and re-checked PTH level which remains < 150, will cont home med Sensipar at lower dose for now but will avoid PTH < 100, cont phos binders. Suspended temp, nutritional Vit d as well -Did transfuse 1 unit PRBC on HD week before last for persistent Hb < 8.0 with symptomatic anemia despite IV iron and GEMMA doses. Response to that was sub optimal, no reports of melenic stools but pt is on Eliquis, did check FOBT which was positive. Did stop Eliquis and place on lower dose Heparin for DVT ppx. Did place on BID PPI for GI ppx, counts remain low but have been able to hold off on additional transfusion. Latest Hb now > 9 for the first time -BP soft last week, did d/c Hydralazine and lowered doses of Coreg and Losartan and BP acceptable mostly since although in the 150s systolic today birgit will go back up on ARB dose -Albumin remains quite low, added Nephro protein supplements, monitor. -OT/PT per rehab program. Discharge plans in progress Santos Garay MD, [facility]
[2022-08-06] MEDS: INSULIN GLARGINE 100 UNIT/ML SQ SCH (19:44)
[2022-08-06] MEDS: TRELEGY ELLIPTA 100 MCG IH SCH (19:48)
[2022-08-06] MEDS: DOCUSATE NA/SENNA CONC 1 TAB PO SCH (19:49)
[2022-08-06] MEDS: ATORVASTATIN 40 MG TAB PO SCH (19:49)
[2022-08-06] MEDS: NEPRO SHAKE 237 ML CAN PO SCH (19:50)
[2022-08-07] MEDS: carvediloL 12.5 MG TAB PO SCH ×2 (05:15→16:54)
[2022-08-07] MEDS: HYDROCODONE/APAP 5/325 MG TAB PO PRN ×2 (06:39→17:09)
[2022-08-07] MEDS: LINACLOTIDE 290 MG PO SCH (06:39)
[2022-08-07] MEDS: INSULIN -REGULAR HUMAN 50 UNIT/0.5 ML ML SQ SCH ×4 (07:03→20:16)
[2022-08-07] MEDS: HEPARIN 5000 UNIT/ML 1 ML VIAL SQ SCH ×2 (07:30→20:00)
[2022-08-07] MEDS: DULOXETINE 30 MG CAP PO SCH (08:18)
[2022-08-07] MEDS: GABAPENTIN 300 MG CAP PO SCH ×2 (08:19→20:15)
[2022-08-07] MEDS: FUROSEMIDE 40 MG TABLET PO SCH ×2 (08:19→16:37)
[2022-08-07] MEDS: PANTOPRAZOLE 40MG TABLET PO SCH ×2 (08:19→16:37)
[2022-08-07] MEDS: MULTIVITAMINS,THERAPEUT 1 TAB PO SCH (08:19)
[2022-08-07] MEDS: ASPIRIN EC 81 MG TAB PO SCH (08:20)
[2022-08-07] MEDS: allopurinoL 100 MG TAB PO SCH (08:20)
[2022-08-07] MEDS: SEVELAMER CARBONATE 800 MG TABLET PO SCH ×3 (08:20→16:54)
[2022-08-07] MEDS: LORATADINE 10 MG TAB PO SCH (08:20)
[2022-08-07] MEDS: ISOSORBIDE DINIT 20 MG TAB PO SCH ×3 (08:20→20:15)
[2022-08-07] MEDS: LEFLUNOMIDE 20 MG PO SCH (08:21)
[2022-08-07] MEDS: CINACALCET 30 MG PO SCH (08:21)
[2022-08-07] MEDS: LIDOCAINE 4% PATCH TOP SCH (08:23)
[2022-08-07] MEDS: CYCLOSPORINE 0.05% OPTH SCH ×2 (08:35→20:16)
[2022-08-07] MEDS: SILVER SULFADIAZINE 1% 25 GM TOP SCH (08:35)
[2022-08-07] MEDS ORDERED: HYDROCODONE/APAP 5/325 MG TAB PO PRN (08:55)
[2022-08-07] MEDS ORDERED: TRAMADOL HCL 50 MG TAB PO PRN ×2 (08:56→12:40)
[2022-08-07] MEDS: DOCOSAHEXANOIC AC/EPA 1000 MG PO SCH (10:07)
[2022-08-07] MEDS: GUAIFENESIN 600 MG SA TAB PO SCH (10:07)
[2022-08-07] MEDS: ASCORBIC ACID 500 MG TABLET PO SCH (10:07)
[2022-08-07] MEDS: LOSARTAN POTASSIUM 50 MG TABLET PO SCH ×2 (10:08→20:15)
--- NOTE | 2022-08-07 12:50 | P.PN ---
Nephrology note: (S) Pt remains hemodynamically stable, afebrile and with no acute events (O) vitals reviewed in the EMR General: Alert, Cooperative, NAD HEENT: Atraumatic, Normocephalic, EOMI Respiratory: b/l air entry, Normal air movement, scattered wheeze Cardiovascular: Regular rate/rhythm, Normal S1 S2 Gastrointestinal: Soft and benign, Non-distended, No tenderness Musculoskeletal: No swelling, No contractures Ext: Lt UE AVF with thrill and bruit Back: Long midline back incision intact and mostly c/d Neurological: Normal speech, Normal tone, Normal affect Laboratory Data (last 24 hrs) Reviewed in the EMR Conclusions/Impression: 1. ESRD 2. Hypertensive CKD/ESRD 3. COPD, unspecified 4. RA with neg RF at this time 5 Degenerative disc disease 6. Secondary hyperparathyroidism due to CKD 7. Anemia 2nd to CKD, post surgical, GI bleeding, other 8. Abnormality of albumin 9. Fever unspecified last week. 10. Pseudomonas and Proteus positive wound culture -Will cont iHD on a TTS basis while here at rehab, next HD at her OP clinic if discharged tmrw -Will recheck labs tmrw prior to discharge -Febrile episode > 1 week ago/isolated, afebrile since, BCx and swab from one area along her back incision with scant drainage taken, pt placed on gram positive and gram neg empiric coverage. Vanc LD given, but switched to PO Abx as pt lost her IV. Cultures came back showing MDR Pseudomonas and Proteus, switched to IV meropenem 500 mg q24h. Stopped Abx after < 7 days due to sig rise in eosinophil count/AEC > 1500 which appeared to correlate with start of Meropenem. Case discussed with ID, Dr. Palma who agreed. Recheck AEC count tmrw as off Meropenem since . UA neg, CXR neg for PNA. Bcx neg Pt is on DMARDs for RA which do increase her risk for infection, procalcitonin initially elevated but no sig leukocytosis or left shift. -Total corrected Ca remain mildly elevated, did prev temp suspend active Vit D and re-checked PTH level which remains < 150, will cont home med Sensipar at lower dose for now but will avoid PTH < 100, cont phos binders. Suspended temp, nutritional Vit d as well -Did transfuse 1 unit PRBC on HD week before last for persistent Hb < 8.0 with symptomatic anemia despite IV iron and GEMMA doses. Response to that was sub optimal, no reports of melenic stools but pt is on Eliquis, did check FOBT which was positive. Did stop Eliquis and place on lower dose Heparin for DVT ppx. Did place on BID PPI for GI ppx, counts remain low but have been able to hold off on additional transfusion. Latest Hb now > 9 for the first time. Re-assess tmrw -BP soft last week, did d/c Hydralazine and lowered doses of Coreg and Losartan and BP acceptable mostly since although in the 150s systolic so will go back up on ARB dose -Albumin remains quite low, added Nephro protein supplements, monitor. -OT/PT per rehab program. Discharge plans in progress Santos Garay MD, [facility]
[2022-08-07] MEDS: TRELEGY ELLIPTA 100 MCG IH SCH (20:15)
[2022-08-07] MEDS: ATORVASTATIN 40 MG TAB PO SCH (20:15)
[2022-08-07] MEDS: INSULIN GLARGINE 100 UNIT/ML SQ SCH (20:15)
[2022-08-07] MEDS: DOCUSATE NA/SENNA CONC 1 TAB PO SCH (20:15)
[2022-08-07] MEDS: NEPRO SHAKE 237 ML CAN PO SCH (20:16)
[2022-08-08] MEDS: HYDROCODONE/APAP 5/325 MG TAB PO PRN ×3 (04:31→13:25)
[2022-08-08 04:32] LABS: Lymphocytes % 17.6 % (15.3-44.8); MCV 100.4 fL (80-100); MPV 7.5 fL (7.6-11.3); RBC Red Blood Cell Count 2.49 M/uL (3.86-4.86)
[2022-08-08 04:53] LABS: Potassium 3.6 mmol/L (3.5-5.1)
[2022-08-08] MEDS: carvediloL 12.5 MG TAB PO SCH (05:14)
[2022-08-08] MEDS: CYCLOSPORINE 0.05% OPTH SCH (07:21)
[2022-08-08] MEDS: LINACLOTIDE 290 MG PO SCH (07:21)
[2022-08-08] MEDS: PANTOPRAZOLE 40MG TABLET PO SCH (07:21)
[2022-08-08] MEDS: INSULIN -REGULAR HUMAN 50 UNIT/0.5 ML ML SQ SCH ×2 (07:30→11:30)
[2022-08-08] MEDS: HEPARIN 5000 UNIT/ML 1 ML VIAL SQ SCH (07:31)
[2022-08-08] MEDS: SEVELAMER CARBONATE 800 MG TABLET PO SCH ×2 (07:38→11:52)
[2022-08-08] MEDS: ISOSORBIDE DINIT 20 MG TAB PO SCH ×2 (07:38→13:33)
[2022-08-08] MEDS: ASCORBIC ACID 500 MG TABLET PO SCH (07:38)
[2022-08-08] MEDS: MULTIVITAMINS,THERAPEUT 1 TAB PO SCH (07:38)
[2022-08-08] MEDS: LORATADINE 10 MG TAB PO SCH (07:39)
[2022-08-08] MEDS: DOCOSAHEXANOIC AC/EPA 1000 MG PO SCH (07:39)
[2022-08-08] MEDS: ASPIRIN EC 81 MG TAB PO SCH (07:40)
[2022-08-08] MEDS: allopurinoL 100 MG TAB PO SCH (07:40)
[2022-08-08] MEDS: DULOXETINE 30 MG CAP PO SCH (07:40)
[2022-08-08] MEDS: FUROSEMIDE 40 MG TABLET PO SCH (07:40)
[2022-08-08 07:41] VITALS: TEMP 97.5
[2022-08-08] MEDS: GABAPENTIN 300 MG CAP PO SCH (07:41)
[2022-08-08] MEDS: CINACALCET 30 MG PO SCH (07:41)
[2022-08-08] MEDS: LEFLUNOMIDE 20 MG PO SCH (07:41)
[2022-08-08] MEDS: LOSARTAN POTASSIUM 50 MG TABLET PO SCH (09:15)
[2022-08-08] MEDS: LIDOCAINE 4% PATCH TOP SCH (09:16)
[2022-08-08] MEDS: SILVER SULFADIAZINE 1% 25 GM TOP SCH (09:17)
[2022-08-08 10:39] VITALS: O2SAT 98
[2022-08-08 13:34] VITALS: BP 149/67
--- NOTE | 2022-08-09 01:53 | PN ---
Subjective: The patient is sitting in wheelchair. Denies any headache, nausea, vomiting, chest pain , abdominal pain, constipation, or diarrhea. Objective: Vital Signs: Reviewed. Lungs: Basal crackles. Heart: S1, S2 regular. Abdomen: Soft, nontender. Bowel sounds present. Extremities: No edema. Back: Wound noted. No open area. Assessment And Plan: Back wound infection with Proteus mirabilis and pseudomonas. The patient was t reated with the local treatment of Silvadene. We will recommend to discontinue as the wound has heal ed. No open area and drainage. Continue with supportive care. End-stage renal disease and anemia o f chronic disease. We will follow the patient as needed. Otherwise, follow with the primary care an d renal doctors. RICARDO/MODL Voice ID: [id number] Report ID: [id number]
--- NOTE | 2022-08-09 21:51 | PN ---
Date of Progress Note: 08/08/2022 A [id number] progress note visit with patient, Wendy Ziegler. Subjective: Ms. Ziegler is doing very well. She is ready for discharge today. She denies any signif icant pain at the back surgery site. No drainage. She is happy and ready to go home and continue wi th her therapy. Review of Systems: No significant pain in the arms and legs. Some mild arthralgias. Has mild spasms and pain in the ba ck surgical site. Physical Examination: Vital Signs: Blood pressure 149/67, pulse 78, respiratory rate 18, temperature 97.5, oxygen saturati on 93%. General: Ms. Ziegler is sitting in a chair beside the bed. She is in no significant distress. HEENT: She is normocephalic, atraumatic. Sclerae nonicteric. Oropharynx is moist and pink. Neck: Supple. Chest: Clear. Heart: Regular. Skin: Surgical site is with hemostasis. Laboratory Studies: White blood cell count 11.3, hemoglobin 8.3. Sodium 137, potassium 3.6, chlorid e 100, carbon dioxide 30, BUN 49, creatinine 5.17, glucose 117 to 136, calcium 8.5. Phosphorus 3.0. X-ray imaging: No new studies. Medications: She is on extra-strength Tylenol 500 mg every 6 hours, [place] 5/325 one every 4 hours as needed, albuterol inhaler 1 puff every 6 hours, allopurinol 100 mg daily, Eliquis 2.5 mg twice daily , vitamin C 500 mg daily, aspirin 81 mg daily, atorvastatin 40 mg at bedtime. Dulcolax 10 mg per rec omar as needed. Rocaltrol 1.5 mcg Monday, , Monday. Coreg 12.5 mg twice daily, cefdinir 3 00 mg daily, Keflex 500 mg every 12 hours, Sensipar 30 mg daily, Flexeril 5 mg twice daily, vibramyci n 100 mg twice daily, Cymbalta 30 mg daily, Nepro shake 237 mg daily, gabapentin 100 mg twice daily. Current Level Of Functioning: Currently, Ms. Ziegler performs bed mobility with the standard hospital bed rails with the modified independence. Transfers done with modified independence. Gait, ambulat ing 150 feet with fair tolerance, modified independence. Stairs up and down 5 stairs with supervisconcepcion sehehan. She again met her functional goals during physical therapy in hospital and her durable medical eq uipment needs have been met. She is being discharged to continue physical therapy via Home Health. Regarding her occupational therapy, she is able to perform activities of daily living without limitat ion, modified independence. She did shower as well. She uses adaptive equipment for the lower extre mities with modified independence and she will go home to continue Home Health with aromatherapist letiy. Progress toward rehabilitation goals: She is making excellent progress and is ready for discharge as noted and will continue with physical and occupational therapy as well. Assessment And Plan: Ms. Ziegler is a 67-year-old patient with thoracic compression, status post deco mpression. She has multiple comorbidities including end-stage renal disease on hemodialysis, hyperte nsion, diabetes mellitus, gout. She has significant pain, malnutrition and anemia and has had a slig htly elevated white blood cell count and is on multiple antibiotics. She did very well with physical and occupational therapy and is ready for discharge and she will continue with physical therapy and occupational therapy via Home Health. She will follow up with her surgeon for back, her Renal physic ians for her end-stage renal disease and her primary care physician as scheduled. GUNJAN/TONY Voice ID: [id number] Report ID: [id number]
== END 2022-08-08 14:35 | disposition home health service (06) | DRG 551 ==
LOC: 5TH 09:29
PROVIDERS: ADMIT Psychiatry & Neurology Neurology with Special Qualifications in Child Neurology; ATTEND Psychiatry & Neurology Neurology with Special Qualifications in Child Neurology
PROC: 5A1D70Z Performance of Urinary Filtration, Intermittent, Less than 6 Hours Per Day (ICD-10-PCS; principal; 2022-07-13)
PROC: 30233N1 Transfusion of Nonautologous Red Blood Cells into Peripheral Vein, Percutaneous Approach (ICD-10-PCS; 2022-07-21)
DX: M48.062 Spinal stenosis, lumbar region with neurogenic claudication (principal); N18.6 End stage renal disease; I13.2 Hypertensive heart and chronic kidney disease with heart failure and with stage 5 chronic kidney disease, or end stage renal disease; E44.0 Moderate protein-calorie malnutrition; N25.81 Secondary hyperparathyroidism of renal origin; I50.32 Chronic diastolic (congestive) heart failure; E11.22 Type 2 diabetes mellitus with diabetic chronic kidney disease; D63.1 Anemia in chronic kidney disease; D50.9 Iron deficiency anemia, unspecified; E78.5 Hyperlipidemia, unspecified; K59.00 Constipation, unspecified; J44.9 Chronic obstructive pulmonary disease, unspecified; M06.9 Rheumatoid arthritis, unspecified; G47.00 Insomnia, unspecified; F32.A Depression, unspecified; D72.829 Elevated white blood cell count, unspecified; M51.36 Other intervertebral disc degeneration, lumbar region; M48.54XD Collapsed vertebra, not elsewhere classified, thoracic region, subsequent encounter for fracture with routine healing; B96.4 Proteus (mirabilis) (morganii) as the cause of diseases classified elsewhere; B96.5 Pseudomonas (aeruginosa) (mallei) (pseudomallei) as the cause of diseases classified elsewhere; R77.0 Abnormality of albumin; R50.9 Fever, unspecified; Z88.1 Allergy status to other antibiotic agents; Z88.5 Allergy status to narcotic agent; Z88.8 Allergy status to other drugs, medicaments and biological substances; Z99.2 Dependence on renal dialysis; Z79.4 Long term (current) use of insulin; Z79.01 Long term (current) use of anticoagulants; Z68.31 Body mass index [BMI] 31.0-31.9, adult; Z79.82 Long term (current) use of aspirin; Z90.81 Acquired absence of spleen; Z96.653 Presence of artificial knee joint, bilateral; Z79.899 Other long term (current) drug therapy; Z20.822 Contact with and (suspected) exposure to COVID-19
CPT/HCPCS: 36415; 70450; 71045; 80048; 80053; 80069; 81001; 82040; 82274; 82805; 82947; 83036; 83605; 83615; 83735; 83880; 83970; 84100; 84134; 84145; 85014; 85018; 85025; 85027; 86317; 86430; 86850; 86900; 86901; 87040; 87070; 87077; 87086; 87088; 87186; 87205; 87340; 90935; 94010; 97110; 97112; 97116; 97163; 97165; 97530; 97542; J0696; J1335; J1644; J1815; J2001; J2250; J2916; J3370; J7030; J7040; J8597; P9016; P9047; Q0162; Q5106; U0003

== ENCOUNTER 2024-05-15 06:43 | Day surgery (SDC) | payer OTHER, BC ==
[2024-05-13 15:31] LABS: Absolute Basophils 0.1 K/uL (0-0.5); Absolute Eosinophils 1.2 K/uL (0-0.5); Absolute Lymphocytes (CBC) 1.7 K/uL (0.7-4.9); Absolute Monocytes 1.1 K/uL (0.1-1.3); Absolute Neutrophil 3.7 K/uL (1.8-8.0); Basophils % 1.4 % (0-1.3); Eosinophils % 15.3 % (0-4.4); Hematocrit 25.5 % (36.0-45.0); Hemoglobin 8.2 g/dL (12.0-15.0); MCH 34.9 pg (27.0-35.0); MCHC 31.9 g/dL (32.0-36.0); MCV 109.3 fL (80-100); Monocytes % 13.8 % (3.3-12.3); Neutrophils % 47.5 % (41.7-73.7); Nucleated RBC Absolute Count 0.1 (0-0); Nucleated Red Blood Cells % 0.7 % (0-0); Platelets 263 thou/uL (152-406); RBC Red Blood Cell Count 2.34 M/uL (3.86-4.86); Red Cell Distribution Width 19.2 % (12.1-15.2)
[2024-05-13 15:45] LABS: Anion Gap 12.2 mEq/L (5.0-15.0); Potassium 5.2 mEq/L (3.5-5.1)
[2024-05-13 16:25] LABS: Differential Total Cells Count 100; Eosinophils 14 % (0-3); Lymphocytes 23 % (15-42); Monocytes 8 % (0-10); Nucleated Red Blood Cells 3 /100WBC; Segmented Neutrophils 52 % (40-80)
[2024-05-13 16:26] LABS: Blood Morphology Comment NOTED (NOT SEEN); Hypochromasia 2+; Platelet Estimate ADEQ
--- NOTE | 2024-05-14 17:47 | EKG ---
Test Date: 2024-05-13 Test Time: 14:40:36 Drum Printer: BALAJI MEASUREMENT RESULTS: Intervals: Rate: 88 TX: 196 QRSD: 136 QT: 438 QTc: 529 [place]: P: 56 TX: 196 QRS: -20 T: 57 INTERPRETIVE STATEMENTS: Normal sinus rhythm Possible Left atrial enlargement Nonspecific intraventricular block Cannot rule out Septal infarct, age undetermined Abnormal ECG Compared to ECG 05/25/2018 01:03:13 Myocardial infarct finding now present Left-axis deviation no longer present Left bundle-branch block no longer present Electronically Signed On 05-14-24 17:45:35 CDT by Kana Wade
[2024-05-15] MEDS: NA CHLORIDE 0.9% 500 ML ONE (07:36)
[2024-05-15] MEDS ORDERED: propofoL 200 MG/20 ML VIAL IV ONE (10:13)
[2024-05-15] MEDS ORDERED: LIDOCAINE 1% MPF 5 ML VIAL ONE (10:13)
[2024-05-15 11:54] VITALS: TEMP 97.5
[2024-05-15 11:56] VITALS: BP 134/99; O2SAT 98
== END 2024-05-15 11:38 | disposition home or self-care (01) ==
LOC: OR 06:43
PROVIDERS: ATTEND Internal Medicine Gastroenterology
PROC: 0DJD8ZZ Inspection of Lower Intestinal Tract, Via Natural or Artificial Opening Endoscopic (ICD-10-PCS; 2024-05-15)
PROC: 0DB68ZX Excision of Stomach, Via Natural or Artificial Opening Endoscopic, Diagnostic (ICD-10-PCS; principal; 2024-05-15 08:30)
PROC: 0DB88ZX Excision of Small Intestine, Via Natural or Artificial Opening Endoscopic, Diagnostic (ICD-10-PCS; 2024-05-15 08:30)
DX: D50.9 Iron deficiency anemia, unspecified (principal); R63.4 Abnormal weight loss; E66.3 Overweight; K44.9 Diaphragmatic hernia without obstruction or gangrene; K29.80 Duodenitis without bleeding; K57.30 Diverticulosis of large intestine without perforation or abscess without bleeding; K63.5 Polyp of colon
CPT/HCPCS: 93005; 85025; 80048; 36415; 88312; 82947; 88305; 43239; 45378; J2704; J2001; J7040

== ENCOUNTER 2024-06-12 06:26 | Day surgery (SDC) | payer OTHER, BC ==
[2024-06-10 13:46] LABS: Absolute Basophils 0.1 K/uL (0-0.5); Absolute Eosinophils 0.9 K/uL (0-0.5); Absolute Lymphocytes (CBC) 1.1 K/uL (0.7-4.9); Absolute Monocytes 0.9 K/uL (0.1-1.3); Absolute Neutrophil 3.5 K/uL (1.8-8.0); Basophils % 1.2 % (0-1.3); Eosinophils % 13.9 % (0-4.4); Hematocrit 34.3 % (36.0-45.0); Lymphocytes % 16.7 % (15.3-44.8); MCH 36.4 pg (27.0-35.0); MCHC 32.2 g/dL (32.0-36.0); MCV 113.2 fL (80-100); MPV 9.5 fL (7.6-11.3); Monocytes % 13.9 % (3.3-12.3); Neutrophils % 54.3 % (41.7-73.7); Nucleated Red Blood Cells % 0.5 % (0-0); Platelets 222 thou/uL (152-406); RBC Red Blood Cell Count 3.03 M/uL (3.86-4.86)
[2024-06-10 14:04] LABS: Anion Gap 10.5 mEq/L (5.0-15.0); Potassium 3.5 mEq/L (3.5-5.1)
[2024-06-10 16:22] LABS: Anisocytosis 1+; Blood Morphology Comment NOTED (NOT SEEN); Howell-Jolly Bodies NOTED; Macrocytosis 2+; Platelet Estimate ADEQ; Polychromasia SLIGHT; White Blood Cell Scan OK (OK)
[2024-06-12] MEDS ORDERED: NA CHLORIDE 0.9% 500 ML ONE (06:49)
[2024-06-12] MEDS ORDERED: SIMETHICONE 40 MG/ 0.6 ML ONE (07:20)
[2024-06-12] MEDS ORDERED: LIDOCAINE 1% MPF 5 ML VIAL ONE (07:29)
[2024-06-12] MEDS ORDERED: propofoL 200 MG/20 ML VIAL IV ONE (07:29)
[2024-06-12 10:01] VITALS: BP 154/73; TEMP 97.1; O2SAT 97
--- NOTE | 2024-06-12 14:22 | RAD REPORT ---
EXAMINATION: Small bowel series CLINICAL INDICATION: Female, 69 years old. Anemia, weight loss. Postop colonoscopy COMPARISON: CT abdomen and pelvis 1122. FINDINGS: Pattern Grader film shows a nonspecific bowel gas pattern. No obstruction or free air. No suspicious calcifica tions. Sequelae of lumbosacral spine hardware fusion. Gastric size and mucosal fold pattern are normal. No delay in transit of contrast into the small joshua l. Small bowel is normal in diameter with no mucosal fold thickening. No intrinsic or extrinsic mass identifiable. Terminal ileum has normal appearance. Transit time to the colon is normal, 2 hours . Fluoroscopy time: 0.9 minutes Total images acquired:11 IMPRESSION: Normal small bowel series.
== END 2024-06-12 08:55 | disposition home or self-care (01) ==
LOC: OR 06:26
PROVIDERS: ATTEND Internal Medicine Gastroenterology
PROC: 0DBP8ZX Excision of Rectum, Via Natural or Artificial Opening Endoscopic, Diagnostic (ICD-10-PCS; 2024-06-12)
PROC: 0DBF8ZX Excision of Right Large Intestine, Via Natural or Artificial Opening Endoscopic, Diagnostic (ICD-10-PCS; 2024-06-12)
PROC: 0DBG8ZX Excision of Left Large Intestine, Via Natural or Artificial Opening Endoscopic, Diagnostic (ICD-10-PCS; principal; 2024-06-12 07:30)
DX: D50.9 Iron deficiency anemia, unspecified (principal); R19.4 Change in bowel habit; R19.7 Diarrhea, unspecified; K57.30 Diverticulosis of large intestine without perforation or abscess without bleeding; K64.8 Other hemorrhoids
CPT/HCPCS: 36415; 74250; 80048; 82947; 85025; 88305; J2001; J2704; J7040